=== PATIENT | female | born 1955 | race Caucasian/White ===

== ENCOUNTER → 2018-06-19 10:13 | Outpatient (CLI) | payer BC, SELFPAY ==
--- NOTE | 2018-06-19 10:22 | XR_ITS ---
XR foot LT min 3V HISTORY: Left foot pain ITS.REASON: SINAI FOOT PAIN ORDERING PHYSICIAN: Wan Santoro PATIENT AGE: 62 years COMPARISON: None FINDINGS: There is mild hallux valgus with mild osteoarthritis of the first MDP joint. Hypertrophic changes are present at the first metatarsal distally and medially. There is moderate to severe pes planus. Osteoarthritic changes are present involving the talonavicular joint anteriorly. Small calcaneal spur present and 8 mm. IMPRESSION: Pes planus with hallux valgus with bunion formation and osteoarthritis of the first MTP joint and talonavicular joint
--- NOTE | 2018-06-19 10:22 | XR_ITS ---
XR foot RT min 3V HISTORY: ] Obtained ITS.REASON: SINAI FOOT PAIN ORDERING PHYSICIAN: Wan Santoro PATIENT AGE: 62 years COMPARISON: None FINDINGS: There is mild hallux valgus with mild osteoarthritis of the first MTP joint with hypertrophic change of the distal aspect of the first metatarsal. There is mild pes planus. Flexion deformity involves the fourth and fifth toes. No fracture or dislocation. No lytic or blastic change. There is a calcaneal spur at 9 mm. IMPRESSION: Hallux valgus with osteoarthritis of the first MTP joint and mild bunion formation with pes planus and flexion deformity of the fourth and fifth toes
== END ==
PROVIDERS: PCP Internal Medicine; Referring Provider Podiatrist; Visit Provider Internal Medicine
DX: M79.672 Pain in left foot (principal); M79.671 Pain in right foot
CPT/HCPCS: 73630

== ENCOUNTER → 2020-08-13 09:19 | Outpatient (CLI) | payer MEDICARE, SELFPAY ==
[2020-08-14 08:08] LABS: Covid-19 Nasal PCR Sendout P&C Negative
== END ==
PROVIDERS: PCP Internal Medicine; Visit Provider Internal Medicine
DX: Z20.822 Contact with and (suspected) exposure to COVID-19 (principal)
CPT/HCPCS: U0004

== ENCOUNTER → 2020-12-29 14:37 | Outpatient (CLI) | payer MEDICARE, SELFPAY ==
--- NOTE | 2020-12-29 14:44 | XR_ITS ---
PROCEDURE: XR CHEST 2V CLINICAL HISTORY: COUGH,HTN COMPARISON: CR CXR1 CHEST-PORTABLE from 04/13/2013 CT CTAC CTA-CHEST from 04/13/2013 FINDINGS: Current exam shows a large mass in the left mid lung measuring 5.5 centimeters x 4 centimeters, concerning for pulmonary neoplasm. CT chest with IV contrast recommended for further assessment. Some underlying COPD changes. No pleural effusion or pneumothorax. Heart is not enlarged. No acute bony abnormality. IMPRESSION: Large mass left mid lung concerning for pulmonary neoplasm. CT chest with IV contrast recommended for further assessment. Some underlying COPD changes with mild bibasilar scar versus atelectasis. Dictated by: Kaleb Brand 12/29/2020 14:59 Kaleb Brand in [facility] 12/29/2020 14:59
--- NOTE | 2020-12-29 16:11 | CT_ITS ---
PROCEDURE INFORMATION: Exam: CT Chest With Contrast; Diagnostic Exam date and time: 12/29/2020 4:11 PM Age: 65 years old Clinical indication: Abnormal findings; Abnormal radiologic exam of lung or chest; Patient HX: Large mass seen on chest x-ray today; Additional info: Lung mass TECHNIQUE: Imaging protocol: Diagnostic computed tomography of the chest with contrast. Radiation optimization: All CT scans at this facility use at least one of these dose optimization techniques: automated exposure control; mA and/or kV adjustment per patient size (includes targeted exams where dose is matched to clinical indication); or iterative reconstruction. Contrast material: ISOVUE; Contrast volume: 75 ml; Contrast route: IV; COMPARISON: CR XR CHEST 2V 12/29/2020 2:47 PM FINDINGS: Lungs: Heterogeneous, macrolobulated mass within the periphery of the left upper lobe, measuring 5.1 cm in AP diameter by 4.0 cm in transverse dimension by 4.9 cm in cephalocaudal dimension. Pleural spaces: Unremarkable. No pneumothorax. No pleural effusion. Heart: Calcification of the aortic valve annulus. Mild three-vessel coronary artery atherosclerotic disease. Aorta: Normal. Lymph nodes: Mildly enlarged lymph nodes within the left AP window and subcarinal regions, the largest measuring approximately 2 cm in short axis diameter in the subcarinal region (series 3, image 36), likely metastatic. Gallbladder and bile ducts: Gallbladder surgically absent. Bones/joints: Multilevel thoracic spine degenerative disc space narrowing and osteophyte formation. Soft tissues: Normal. IMPRESSION: 1. Heterogeneous, macrolobulated mass within the periphery of the left upper lobe, measuring 5.1 cm in AP diameter by 4.0 cm in transverse dimension by 4.9 cm in cephalocaudal dimension. Findings most compatible with primary lung carcinoma. Recommend further evaluation with PET-CT and tissue sampling. 2. Mildly enlarged lymph nodes within the left AP window and subcarinal regions, the largest measuring approximately 2 cm in short axis diameter in the subcarinal region (series 3, image 36), likely metastatic.
[2020-12-29 16:33] LABS: Blood Urea Nitrogen 13 mg/dl (7-17); Estimated Glomerular Filt Rate 100 ml/min (>60); GFR (African American) 121 ML/MIN (>60)
== END ==
PROVIDERS: PCP Internal Medicine; Visit Provider Internal Medicine
DX: R91.8 Other nonspecific abnormal finding of lung field (principal); R05 Cough; I10 Essential (primary) hypertension
CPT/HCPCS: 36415; 71046; 71260; 82565; 84520; Q9967

== ENCOUNTER → 2021-01-06 16:49 | Outpatient (CLI) | payer MEDICARE, SELFPAY ==
[2021-01-06 17:06] LABS: Basophils # 0.1 K/mm3 (0-0.2); Basophils % 0.5 % (0.1-2.0); Eosinophils # 0.3 K/mm3 (0.0-0.4); Eosinophils % 3.2 % (0.1-12.0); Hematocrit 38.2 % (37.0-47.0); Hemoglobin 13.6 g/dL (12.2-16.2); Lymphocytes % 19.8 % (10-50); Mean Corpuscular HGB Conc 35.6 g/dL (31.8-35.4); Mean Corpuscular Hemoglobin 30.4 pg (27.0-31.2); Mean Corpuscular Volume 85.4 fl (81-99); Mean Platelet Volume 7.3 fl (7.4-10.4); Monocytes # 0.5 K/mm3 (0.1-1.0); Monocytes % 4.9 % (1.7-9.3); Neutrophils # 7.1 K/mm3 (1.8-7.8); Neutrophils % 71.6 % (37.0-80.0); Platelet Count 291 K/mm3 (142-424); Red Blood Count 4.47 M/mm3 (4.20-5.40); Red Cell Distribution Width 13.2 % (11.5-17.5); White Blood Count 9.9 K/mm3 (4.8-10.8)
[2021-01-06 17:38] LABS: Prothrombin Time 12.3 seconds (10.1-12.5)
[2021-01-06 18:12] LABS: INR 1.05 (0.9-1.1)
[2021-01-06 19:06] LABS: Chloride 103 mmol/L (98-107); Potassium 3.5 mmoL/L (3.5-5.1); Sodium 141 mmol/L (136-145)
[2021-01-06 19:09] LABS: Anion Gap 16.5 mEq/L (5-15); Blood Urea Nitrogen 15 mg/dl (7-17); Calcium 9.8 mg/dl (8.4-10.2); Carbon Dioxide 25 mmol/L (22.0-30.0); Estimated Glomerular Filt Rate 100 ml/min (>60); GFR (African American) 121 ML/MIN (>60); Glucose 97 mg/dl (74-100)
== END ==
PROVIDERS: Visit Provider Internal Medicine Pulmonary Disease
DX: R91.8 Other nonspecific abnormal finding of lung field (principal); R23.3 Spontaneous ecchymoses; J45.909 Unspecified asthma, uncomplicated; Z51.81 Encounter for therapeutic drug level monitoring
CPT/HCPCS: 80048; 85025; 85610

== ENCOUNTER → 2021-01-10 09:18 | Outpatient (CLI) | payer MEDICARE, SELFPAY | PROVIDERS: Visit Provider Internal Medicine Pulmonary Disease | DX: Z01.812 Encounter for preprocedural laboratory examination (principal); Z20.822 Contact with and (suspected) exposure to COVID-19 | CPT/HCPCS: U0003 ==

== ENCOUNTER 2021-01-12 07:29 | Day surgery (SDC) | payer MEDICARE, SELFPAY ==
[2021-01-08 13:47] VITALS: BMI 32.5
[2021-01-12] VITALS (14 sets, daily range): BP systolic 120–172; BP diastolic 55–83; PULSE 88–106; RESP 14–20; TEMP 36.3–36.9; O2SAT 92–98
--- NOTE | 2021-01-12 10:24 | HMH.ANESCL ---
[facility] Anesthesia Checklist - Patient Identification Patient Identification: Arm Band - Structural Data Admitted From: Home Planned Operative Procedure/s: Left bronch, FNA, EBUS Verified Documents: Surgical Consent, History and Physical - NPO Status Verified Time NPO: 00:00 - Additional verifications Anesthesia Reactions: No Hx Blood Transfusions: No Blood Transfusion Reaction: No - Airway Assessment C-Spine Mobility Assessed: Yes TMJ Mobility Assessed: Yes Dentition: Poor Dentition - Neurological Assessment Level of Consciousness: Awake - Anesthesia Plan Anesthesia Risk discussed: Yes Anesthesia Plan: Verified ASA Class: III Anesthesia Type: General [facility] History Medical History: Reports:: Cancer (uterine and ovarian cancer), Heart Murmur, Hyperlipidemia, Hypertension Denies:: Diabetes Mellitus Type 1, Diabetes Mellitus Type 2, Internal Pacemaker, Lung Disease, MRSA, Seizures *Have you ever received a pneumonia vaccine?: No *Have you received a flu vaccine this season?: No Other Medical History: Reports: Arthritis. Denies: Blood Transfusion Reaction Anesthesia experience/problems:: None Other Surgeries: Yes: Cholecystectomy, Colonoscopy, EGD, Hysterectomy-Total, Other. No: Pacemaker Amputation: No Fractures: Yes (rt ankle) - *Social History Last grade of school completed: High school graduate Smoking Status: Never smoker Alcohol Intake: never Alcohol Intake Frequency:: other Substance Use Type: denies use *Occupational Status:: retired Housing: house Household Members: none *Travel in the last 8 weeks: None Family Hx:: Cancer, Stroke
--- NOTE | 2021-01-12 11:08 | XR_ITS ---
PROCEDURE: XR CHEST PORTABLE CLINICAL HISTORY: s/p bronchoscopy Cough COMPARISON: CR CXR1 CHEST-PORTABLE from 04/13/2013 CR XR CHEST 2V from 12/29/[address] CHEST W CON from 12/29/2020 FINDINGS: The cardiomediastinal silhouette and pulmonary vascularity are within normal limits. Left upper lobe mass once again noted not significantly changed at 6 x 4.4 cm. No evidence of pneumothorax status post bronchoscopy. The right lung is clear. No acute bony abnormalities. IMPRESSION: No change left upper lobe mass. No evidence of pneumothorax. Dictated by: Fili Garza MD 01/12/2021 11:53 Fili Garza MD in [facility] 01/12/2021 11:53
--- NOTE | 2021-01-12 11:16 | PC.NURSE ---
1116-radiology at bedside
--- NOTE | 2021-01-12 11:28 | P.PN_ITS ---
[facility] Anesthesia Record Part I Intake, IV Amount: 1,600 Estimated blood loss (mL): 2 Urine output (mL): 0 Blood Pressure: 151/80 SaO2: 97 Pulse Rate: 106 Respiratory Rate: 14 Temperature: 97.4 F Patient is:: Awake, Stable Stable to PACU at:: 11:15
--- NOTE | 2021-01-12 11:41 | PC.NURSE ---
1135-pt transported to post op via stretcher w/marshall rails up and left in care of SONI [place], vss
--- NOTE | 2021-01-12 12:47 | HMH.ANESII ---
[facility] Anesthesia Record Part II Discharge Time: 11:35 Destination: Surgical Day Care (OP Surgery) PACU nurse assessment reviewed?: Yes Patient Condition:: Good Anesthesia Complications:: None Swallowing reflex intact?: Yes Cyanosis?: No Blood Pressure: 145/73 Pulse Rate: 100 Temperature: 97.4 F Mental Status: Alert & Oriented Pain level:: 0 Nausea and/or vomitting:: None Intake, IV Amount: 0
--- NOTE | 2021-01-12 13:50 | SUR.PHASEII ---
WHEEZING HAS IMPROVED SINCE DUONEB, PT BREATHING EASIER AND COUGHING HAS LESSONED DRASTICALLY. PT SMILING AND LAUGHING WITH SISTER, COPING WELL WITH DIAGNOSIS AT THIS TIME, ASKING APPROPRIATE QUESTIONS.
--- NOTE | 2021-01-12 14:43 | P.PCN_ITS ---
- Procedure: Date: 01/12/21 Patient Date of :: 1955 Procedure Performed:: Bronchoscopy with EBUS FNA and transbronchial lung biopsy Indications:: Lung mass and lymphadenopathy Performing Provider:: Kim Lomeli MD Referring Provider:: Dr: Wan Santoro Sedation:: General anesthesia Procedure:: A clean EBUS bronchoscopy was advanced the ET tube and lymph node surveillance was performed. Patient noted to have lymphadenopathy at station 7 and station 10 L. Patient also noted to have a tender lymph node that is marginally enlarged at 1 cm in size. FNAs were performed at station 7 and 10 L and 10 R. Pathology preliminary examination resulted positive for malignancy at station 7 and 10 L. 10 R resulted negative for malignancy. EBUS bronchoscopy was retracted and a clean diagnostic bronchoscopy was advanced and airways were examined up to subsegmental bronchi. Patient noted to have a decreased bronchial lumen in her right middle lobe, left lingula and left lower lobe superior segment. No obvious evidence hemoptysis or mucous plugging noted. Transbronchial lung biopsies were performed in the left lingula and was sent for cytopathological examination in formalin. No BAL was performed. Patient tolerated the procedure well. Findings:: Please see the procedure note Recommendations:: Please follow-up with the primary care physician for the results. Pulmonary services will not be available for the next 3 weeks and patient was advised to follow with the primary care the results. Primary care appointment was also also confirmed today. We have also referred the patient to follow with oncology for further management. PET scan was ordered during her recent clinic visit however not scheduled yet we will touch base with [facility] to schedule the PET scan. Complications:: None Estimated blood obtained (mL): 5
== END 2021-01-12 13:55 | disposition home or self-care (01) ==
LOC: OR 07:30
PROVIDERS: PCP Internal Medicine; Visit Provider Internal Medicine Pulmonary Disease
PROC: (CPT 31628; principal; 2021-01-12 09:00)
DX: C77.9 Secondary and unspecified malignant neoplasm of lymph node, unspecified (principal); R59.0 Localized enlarged lymph nodes; I10 Essential (primary) hypertension; Z79.899 Other long term (current) drug therapy
CPT/HCPCS: 31628; 31653; 71045; 76000; 88172; 88173; 88305; 88333; 88342; 94640; J2405

== ENCOUNTER → 2021-05-29 14:08 | Outpatient (CLI) | payer MEDICARE, SELFPAY ==
[2021-05-29 15:20] LABS: Basophils % 0.3 % (0.1-2.0); Eosinophils # 0.1 K/mm3 (0.0-0.4); Hematocrit 40.9 % (37.0-47.0); Hemoglobin 13.5 g/dL (12.2-16.2); Lymphocytes # 1.3 K/mm3 (0.7-4.5); Lymphocytes % 19.7 % (10-50); Mean Corpuscular HGB Conc 32.9 g/dL (31.8-35.4); Mean Corpuscular Hemoglobin 30.5 pg (27.0-31.2); Mean Corpuscular Volume 92.8 fl (81-99); Monocytes # 0.3 K/mm3 (0.1-1.0); Monocytes % 4.3 % (1.7-9.3); Neutrophils % 74.7 % (37.0-80.0); Platelet Count 215 K/mm3 (142-424); Red Blood Count 4.41 M/mm3 (4.20-5.40); Red Cell Distribution Width 13.7 % (11.5-17.5); White Blood Count 6.7 K/mm3 (4.8-10.8)
[2021-05-29 17:31] LABS: Alanine Aminotransferase 8 U/L (12-78); Albumin Level 4.3 g/dl (3.5-5.0); Albumin/Globulin Ratio 1.7 (1.1-1.8); Alkaline Phosphatase 49 U/L (38-126); Anion Gap 11.8 mEq/L (5-15); Aspartate Amino Transferase 26 U/L (14-36); Bilirubin,Total 0.6 mg/dl (0.2-1.3); Blood Urea Nitrogen 17 mg/dl (7-17); Calcium 9.6 mg/dl (8.4-10.2); Carbon Dioxide 28 mmol/L (22.0-30.0); Chloride 103 mmol/L (98-107); Chol/HDL Ratio 2.5 (1-3.5); Cholesterol 195 mg/dl (140-200); Estimated Glomerular Filt Rate 100 ml/min (>60); GFR (African American) 121 ML/MIN (>60); Globulin 2.6 g/dL (1.3-3.2); Glucose 71 mg/dl (74-100); HDL Cholesterol 77 mg/dl (40-60); Potassium 3.8 mmoL/L (3.5-5.1); Sodium 139 mmol/L (136-145); Total Protein,Serum 6.9 g/dl (6.3-8.2); Triglycerides 155 mg/dl (30-150); VLDL Cholesterol 31 mg/dL (0-40)
[2021-05-29 17:45] LABS: Direct LDL Cholesterol 87.51 mg/dL (100-129)
[2021-05-29 17:54] LABS: T4 (Thyroxine) 8.2 ug/dl (5.53-11.0)
[2021-05-29 18:07] LABS: Thyroid Stimulating Hormone 2.71 uIU/mL (0.465-4.68)
== END ==
PROVIDERS: Visit Provider Internal Medicine
DX: I10 Essential (primary) hypertension (principal); E78.5 Hyperlipidemia, unspecified; E02 Subclinical iodine-deficiency hypothyroidism; C34.92 Malignant neoplasm of unspecified part of left bronchus or lung; Z85.42 Personal history of malignant neoplasm of other parts of uterus
CPT/HCPCS: 80053; 80061; 84436; 84443; 85025

== ENCOUNTER 2021-12-02 12:13 | Emergency (ER) | payer MEDICARE, SELFPAY ==
[2021-12-02 12:35] VITALS: BP 109/72; PULSE 76; RESP 16; TEMP 36.8; O2SAT 98; BMI 31.6
--- NOTE | 2021-12-02 12:52 | HMH.EDUTC ---
[facility] [place] Clinical Impression: Laceration Disposition: Home, Self-Care Condition on Discharge: Good Instructions: Laceration Repair, DI for Laceration Repair -- Simple Additional Instructions: Suture instructions: You have required stitches today. Please read the following instructions so you know how to care for them: 1. Keep wound area dry for the first 24 hours. 2 May clean gently with mild soap and water, after 48 hours to prevent crusting over suture knots. 3. You may shower if your provider gives permission but do not take a bath until the skin is healed.. 4. Never leave a wet dressing or Band-Aid on your stitches as this allows bacteria to reach the area and may cause infection. Band-aids can cause the wound to sweat and not recommended to wear for long periods of time Watch for signs of infection: Increasing redness, tenderness or warmth around the suture site Unusual swelling around the site Appearance of pus around each suture or any red streaks Fever If you develop any of the above signs or symptoms of infection, Follow up with Family Physician immediately 5. Suture removal in _7-10___days 6. Return to [facility] or follow up with family doctor for removal. This can be done by any medical provider during regular hours on Tuesday through Tuesday, by appointment. Referrals: Wan Santoro MD [Primary Care Provider] - As needed Forms: Work/School Release Time of Disposition: 14:25 Medical Decision Making - Francis Inquiry Pt receiving controlled substance: No Francis was queried for this patient: No Vital Signs: 12/02/21 12:35 12/02/21 13:02 Temperature 98.3 F 98.3 F Temperature Source Oral Pulse Rate 76 Pulse Rate [Right Brachial] 76 Respiratory Rate 16 16 Blood Pressure 109/72 L Blood Pressure [Right Arm] 109/72 L Blood Pressure Mean [Right Arm] 84 Blood Pressure Source [Right Arm] Automatic Cuff Blood Pressure Position [Right Arm] Sitting 02 Sat by Pulse Oximetry 98 Oxygen Delivery Method Room Air Orders (Tests/Meds): ED MEDICATIONS Discontinued Medications Generic Name Dose Route Start Last Admin Trade Name Freq PRN Reason Stop Dose Admin Tetanus/Reduced Diphtheria/Acell Pertussis 0.5 ml 12/02/21 12:51 12/02/21 12:55 Tet/Diphth/Pert-Adult 0.5ml Syringe IM 12/02/21 12:52 0.5 ml .ONCE ONE Administration [facility] HPI - General Stated complaint: AO 12/02 finger lac Time Seen by Provider: 12/02/21 12:52 Mode of Arrival: Ambulatory Source of Information: Patient Limitations: No Limitations Description of Symptoms (Recalled from Triage Doc. 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 and her pencil went to roll off the desk and she reached to grab it and hit her hand against the blades and cutting her right middle finger and index finger States that she takes baby aspirin and was having a hard time getting the bleeding to stop so she came in - Related Data Home Medications Medication Instructions Recorded Confirmed amlodipine 5 mg tablet 5 mg PO DAILY 90 Days #90 tab 05/10/18 05/15/21 aspirin 81 mg tablet,delayed 81 mg PO DAILY 05/10/18 05/15/21 release lisinopril 20 2 tab PO DAILY 90 Days #180 tab 05/10/18 05/15/21 mg-hydrochlorothiazide 12.5 mg tablet Ca/D3/Mag/Zinc/Glenn/Dangelo/Mgbor 1 tab PO DAILY 01/08/21 05/15/21 [Caltrate 600-D3-Min Chew Tab] Potassium Chloride 10 meq PO DAILY 01/08/21 05/15/21 Previous Rx's Medication Instructions Recorded albuterol sulfate 90 mcg/actuation 1 inh INHALATION QID PRN #8.5 g 01/12/21 aerosol inhaler benzo
[2021-12-02 13:02] VITALS: BP 109/72; PULSE 76; RESP 16; TEMP 36.8; O2SAT 98
== END 2021-12-02 13:30 | disposition home or self-care (01) ==
PROVIDERS: Emergency Provider Nurse Practitioner; PCP Internal Medicine
DX: S61.210A Laceration without foreign body of right index finger without damage to nail, initial encounter (principal); S61.212A Laceration without foreign body of right middle finger without damage to nail, initial encounter; W26.8XXA Contact with other sharp object(s), not elsewhere classified, initial encounter; Y92.69 Other specified industrial and construction area as the place of occurrence of the external cause; Y99.0 Civilian activity done for income or pay; Z23 Encounter for immunization
CPT/HCPCS: 12001; 90471; 90715; 99213; G0463

== ENCOUNTER → 2022-09-06 17:14 | Outpatient (CLI) | payer MEDICARE, SELFPAY ==
[2022-09-06 17:59] LABS: Basophils # 0.1 K/mm3 (0-0.2); Basophils % 0.6 % (0.1-2.0); Eosinophils # 0.1 K/mm3 (0.0-0.4); Eosinophils % 1.6 % (0.1-12.0); Hematocrit 40.8 % (37.0-47.0); Hemoglobin 13.2 g/dL (12.2-16.2); Lymphocytes # 1.6 K/mm3 (0.7-4.5); Lymphocytes % 20.2 % (10-50); Mean Corpuscular HGB Conc 32.4 g/dL (31.8-35.4); Mean Corpuscular Hemoglobin 30.1 pg (27.0-31.2); Mean Corpuscular Volume 93.1 fl (81-99); Mean Platelet Volume 9.3 fl (7.4-10.4); Monocytes # 0.4 K/mm3 (0.1-1.0); Monocytes % 5.4 % (1.7-9.3); Neutrophils # 5.5 K/mm3 (1.8-7.8); Neutrophils % 72.2 % (37.0-80.0); Platelet Count 202 K/mm3 (142-424); Red Blood Count 4.38 M/mm3 (4.20-5.40); Red Cell Distribution Width 13.2 % (11.5-17.5); White Blood Count 7.7 K/mm3 (4.8-10.8)
[2022-09-06 18:12] LABS: Alanine Aminotransferase 14 U/L (12-78); Albumin Level 4.6 g/dl (3.5-5.0); Albumin/Globulin Ratio 1.6 (1.1-1.8); Alkaline Phosphatase 61 U/L (38-126); Anion Gap 8.5 mEq/L (5-15); Aspartate Amino Transferase 25 U/L (14-36); Bilirubin,Total 0.8 mg/dl (0.2-1.3); Blood Urea Nitrogen 15 mg/dl (7-17); Calcium 9.9 mg/dl (8.4-10.2); Carbon Dioxide 29 mmol/L (22.0-30.0); Chloride 103 mmol/L (98-107); Chol/HDL Ratio 2.5 (1-3.5); Cholesterol 217 mg/dl (140-200); Estimated Glomerular Filt Rate 72 ml/min (>60); GFR (African American) 87 ML/MIN (>60); Globulin 2.8 g/dL (1.3-3.2); Glucose 76 mg/dl (74-100); HDL Cholesterol 86 mg/dl (40-60); Potassium 3.5 mmoL/L (3.5-5.1); Sodium 137 mmol/L (136-145); Total Protein,Serum 7.4 g/dl (6.3-8.2); Triglycerides 140 mg/dl (30-150); Uric Acid 6.2 mg/dl (2.5-6.2); VLDL Cholesterol 28 mg/dL (0-40)
[2022-09-06 18:22] LABS: Direct LDL Cholesterol 89.83 mg/dL (100-129)
== END ==
PROVIDERS: PCP Internal Medicine; Visit Provider Internal Medicine
DX: I10 Essential (primary) hypertension (principal); E78.5 Hyperlipidemia, unspecified; M10.9 Gout, unspecified; C34.92 Malignant neoplasm of unspecified part of left bronchus or lung; Z85.42 Personal history of malignant neoplasm of other parts of uterus; Z85.43 Personal history of malignant neoplasm of ovary
CPT/HCPCS: 80053; 80061; 84550; 85025

== ENCOUNTER 2023-08-02 10:16 | Day surgery (SDC) | payer MEDICARE, SELFPAY ==
[2023-07-29 13:05] VITALS: BMI 32.5
[2023-08-02] MEDS: LACTATED RINGERS 1000ML 1,000 ML 25 ML IV (10:33)
[2023-08-02 10:39] VITALS: BP 131/68; PULSE 86; RESP 18; TEMP 37.1; O2SAT 94
--- NOTE | 2023-08-02 10:57 | P.PCN_ITS ---
Procedure: Date: 08/02/23 Patient Date of :: 1955 Procedure Performed:: Colonoscopy Indications:: History of colon polyps Note: Most recent colonoscopy in June 2019 was somewhat complicated by fairl y severe spasticity/tortuosity. Prior colonoscopy May 2018 revealed a 9 mm sessile serrated adenoma of the right colon. Performing Provider:: Fortunato Reyes MD Referring Provider:: . Sedation:: Monitored anesthesia care Procedure:: After informed consent was obtained the patient was taken to the endoscopy suite. Sedation ensued after the patient was transferred to the left lateral decubitus position. Pulse, blood pressure, and oxygen saturation were monitored throughout the procedure. Digital rectal exam revealed no significant abnormality. The colonoscope was placed in position. The entire colon was evaluated. The colonoscope was carefully removed and the patient was transferred to recovery in stable condition. Please see findings and specimens below for detail. Findings:: Bowel preparation moderate Scattered diverticulosis (more pronounced in sigmoid colon) Severe tortuosity of sigmoid colon Profound sigmoid spasticity Specimens:: None Recommendations:: Repeat colonoscopy 3-5 years secondary to history of polyps, tortuosity, and spasticity. Complications:: No immediate Estimated blood obtained (mL): 0 Colonoscopy Component Colonoscopy Component Was a colonoscopy performed during today's procedure?: Yes Recommended follow up colonoscopy of at least 10 years?: No If no, follow up colonoscopy recommended in ___ years?: (See above) Reason for not recommending >/= 10 yr follow-up interval?: (See above)
--- NOTE | 2023-08-02 11:04 | EXP.ANES.CKL ---
[facility] Disclaimer: The information contained in this section may have been updated after the patient was seen, as this information can be updated by other users. Medical History Heart murmur Lung cancer Surgical History (Updated 08/02/23 @ 10:36 by Glynn Haddad RN) History of cholecystectomy History of hysterectomy History of lung biopsy Family History Other Family history of cancer Family history of hypertension Social History Smoking Status: Never smoker second hand exposure: Yes alcohol intake: never substance use type: denies use current occupational status: retired Travel in the last 8 weeks: None household members: none housing: house current occupational exposures/hazards: No caffeine: No [facility] Anesthesia Checklist Patient Identification Patient Identification: Arm Band Structural Data Admitted From: Home Planned Operative Procedure/s: Colonoscopy Consent for Planned Operative Procedure(s) Verified: Yes Verified Documents: Surgical Consent and History and Physical NPO Status Verified Time NPO: 00:00 Additional verifications Anesthesia Reactions: No Hx Blood Transfusions: No Blood Transfusion Reaction: No Airway Assessment Mallampati Score:: Class II C-Spine Mobility Assessed: Yes TMJ Mobility Assessed: Yes Dentition: Good Dentition Neurological Assessment Level of Consciousness: Awake and Alert Anesthesia Plan Anesthesia Risk discussed: Yes Anesthesia Plan: Verified ASA Class: III Anesthesia Type: MAC
[2023-08-02 11:10] VITALS: O2SAT 94
[2023-08-02 11:42] VITALS: BP 106/47; PULSE 98; RESP 15; TEMP 36.1; O2SAT 98
[2023-08-02 11:52] VITALS: BP 102/66; PULSE 98; RESP 18; O2SAT 98
[2023-08-02 12:02] VITALS: BP 90/63; PULSE 98; RESP 16; O2SAT 98
[2023-08-02 12:12] VITALS: BP 111/68; PULSE 97; RESP 16; TEMP 36.6; O2SAT 98
== END 2023-08-02 12:12 | disposition home or self-care (01) ==
PROVIDERS: PCP Internal Medicine; Visit Provider Surgery
PROC: 0DJD8ZZ Inspection of Lower Intestinal Tract, Via Natural or Artificial Opening Endoscopic (ICD-10-PCS; CPT 45378; principal; 2023-08-02 11:30)
DX: Z12.11 Encounter for screening for malignant neoplasm of colon (principal); Z86.010 Personal history of colon polyps; K57.30 Diverticulosis of large intestine without perforation or abscess without bleeding; K56.2 Volvulus
CPT/HCPCS: 45378; J2704

== ENCOUNTER 2023-11-29 14:37 | Outpatient (CLI) | payer MEDICARE, SELFPAY ==
--- NOTE | 2023-11-29 14:49 | XR_ITS ---
FINAL REPORT CLINICAL HISTORY: LT HIP PAIN, HX OF NON SMALL CELL LUNG CANCER COMPARISON: None FINDINGS: Two images of the left hip were obtained. There is no evidence of fracture or dislocation. There is severe degenerative change of the hip joints bilaterally. There are also severe degenerative changes of the lower lumbar spine present. No acute bony abnormality is noted at the left hip. There are sclerotic areas noted in the left lateral sacrum and the left iliac wing, that may represent bony sclerosis or underlying masses. There is no soft tissue abnormality identified. 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 Sclerotic areas noted in the left lateral sacrum and the left iliac wing that may represent bony sclerosis or underlying masses. Correlation with bone scan or MRI might be helpful for further evaluation. Reviewed, Interpreted and Dictated by Jay Jules III, MD Transcribed by Ashlie So Authenticated and . [facility]
== END 2023-11-29 23:59 | disposition home or self-care (01) ==
LOC: RAD 14:39
PROVIDERS: PCP Internal Medicine; Visit Provider Internal Medicine
DX: M25.552 Pain in left hip (principal); Z85.118 Personal history of other malignant neoplasm of bronchus and lung
CPT/HCPCS: 73502

== ENCOUNTER 2024-10-03 12:58 | Outpatient (CLI) | payer MEDICARE, SELFPAY ==
--- NOTE | 2024-10-03 13:01 | CA_ITS ---
APPROVED REPORT EXAM: Comprehensive 2D, Doppler, and color-flow Echocardiogram Corrosion Control Engineer: Elena Damon RDCS Ht: 5 ft 5 in Wt: 196lbs BSA: 1.96 BP: 150/72 mmHg Indications: MURMUR,PRE-OP EVAL HIP SUGERY,H/O LUNG CA 2D Dimensions Left Atrium 3.55 cm F: 2.7 - 3.8 LA Volume 81.30 mL LVOT 2.09 cm (M/F) 1.5-2.5 LA Volume Index 41.48 mL/m2 (M/F) 16-34 M-Mode Dimensions RVDd 1.90 cm (0.9-2.6) LVDd 5.80 cm (3.5-5.7) Ao Diam 3.09 cm (2.0-3.7) LVDs 4.22 cm (3.5-5.7) IVSd 0.54 cm (0.6-1.1) PWd 0.72 cm (0.6-1.1) EF (Teich) 52.30% FS 27.20% EDV (Teich) 166.60 mL ESV (Teich) 79.50 mL LV Diastology E Decel Time 197 (160-240 msec) E/A Ratio 0.8 MED E' 6.8 (>= 7 cm/sec) E'/MED E' Ratio 13.76 (<= 14) LAT E' 7.3 (>= 10 cm/sec) E/LAT E' Ratio 12.82 (<= 14) Aortic Valve LVOT Max 111.0 (70-110 cm/s) ADELAIDA Index 0.55 cm2/m2 LVOT VTI 24.78 cm AoV Peak Mohsen. 429.0 (50-130 cm/s) AO Mean GR. 36.20 (<5 mmHg) AO VTI 79.3 (18-25 cm) ADELAIDA (VTI) 1.07 (2.5-4.5 cm2) Mitral Valve MV E Max Mohsen. 94.0 (40-130 cm/s) MV A Velocity 120.0 (40-130 cm/s) E/A Ratio 0.78 MV Decel. Time 197 (160-240 ms) Left Ventricle The left ventricle is normal size. The left ventricular systolic function is normal. The left ventricular ejection fraction is within the normal range. There is increased LV wall thickness. There is normal LV segmental wall motion. Transmitral Doppler flow pattern suggests impaired LV relaxation. LVEF is 55%. Right Ventricle The right ventricle is normal size. The right ventricular systolic function is normal. Atria Left atrium is moderately dilated. Right atrium is moderately dilated. There is no Doppler evidence of interatrial shunt. Aortic Valve Aortic valve is moderately thickened. Trace aortic regurgitation. Severe aortic stenosis is present. ADELAIDA by continuity equation is 0.8 cm???. Peak velocity 4.3 m/s. Mean AV gradient 37 mmHg. Max AV gradient 77 mmHg. Mitral Valve The mitral valve leaflets are mildly thickened. Mild mitral regurgitation. No evidence of mitral valve stenosis. Tricuspid Valve Tricuspid valve is grossly normal in structure and function. Trace tricuspid rotation. There is insufficient TR jet to estimate RVSP. Mild pulmonic regurgitation. Pulmonic Valve The pulmonary valve is normal in structure. Great Vessels The aortic root is normal in size. IVC is normal in size and collapses >50% with inspiration. Pericardium There is no pericardial effusion. Other Information Study Quality: Fair Conclusion Normal biventricular systolic function. Biatrial dilation. Severe (ADELAIDA by continuity equation is 0.8 cm???. Peak velocity 4.3 m/s. Mean AV gradient 37 mmHg. Max AV gradient 77 mmHg). Mild MR. In the setting of severe , early referral for interventional cardiology is suggested for TAVR evaluation. Electronically signed by : Alanna Palacios MD 10/04/2024 12:01:33
== END 2024-10-03 23:59 | disposition home or self-care (01) ==
LOC: RT 12:59
PROVIDERS: PCP Internal Medicine; Visit Provider Internal Medicine
DX: I51.7 Cardiomegaly (principal); I35.0 Nonrheumatic aortic (valve) stenosis; I34.0 Nonrheumatic mitral (valve) insufficiency; R01.1 Cardiac murmur, unspecified
CPT/HCPCS: 93306

== ENCOUNTER 2025-02-01 11:12 | Outpatient (CLI) | payer MEDICARE, SELFPAY ==
--- OUTSIDE RECORDS SUMMARY | 2024-12-11 11:30 | XMS_ITS | Encounter Summary ---
Author Organization [facility] Address [address] [place] [address] Care Team Providers Care Inspector Plating Name Role Phone Wan Santoro MD Primary Care Provider [phone] Dalton Hurley MD Unavailable [phone] Geovanny Dominguez MD Unavailable [phone] Rudolph Dillard MD Unavailable [phone] Abdiel Vargas APRN Unavailable [phone] Rodney Maria MD Unavailable [phone] Brian Flores MD Unavailable [phone] Reason for Visit * Reason Comments Labs Only Encounter Details Date Type Department Care Team (Latest Contact Info) Description 12/11/2024 11:30 AM EDT Clinical Support [facility] [address] [place] [address] 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); Encounter for antineoplastic chemotherapy; Adenocarcinoma of left lung (CMS/HCC) Social History Tobacco Use Types Packs/Day Years Used Date Smoking Tobacco: Never Smokeless Tobacco: Never Alcohol Use Standard Drinks/Week Comments Never 0 (1 standard drink = 0.6 oz pur e alcohol) PHQ-2 Answer Date Recorded Patient Health Questionnaire-2 Score 0 10/29/2024 PHQ-9 Answer Date Recorded Patient Health Questionnaire-9 Score 0 10/29/2024 Comments No Sex and Gender Information Value Date Recorded Sex Assigned at Not on file Legal Sex Female 7:30 PM EDT Gender Identity Not on file Sexual Orientation Not on file documented as of this encounter Functional Status * Calculated C-SSRS Risk Score (Lifetime/Recent) Answer Date of Assessment Author No Risk Indicated 12/11/2024 11:36 AM EDT Frederic Ramosenix R * Question Answer Date of Assessment Author 1. Wish to be (Past 1 Month) No 025 11:36 AM EDT Frederic Kleinenix R 2. Non-Specific Active Suici rahel Thoughts (Past 1 Month) No 12/11/2024 11:36 AM EDT Martha Klein oenix R 6. Suicidal Behavior (Lifetime) No 11:36 AM EDT Fabien Kleinx R documented as of this encounter Plan of Treatment Upcoming Encounters Date Type Department Care Team ([facility] st Contact Info) Description 02/11/2025 1:05 PM EDT Hospital Encounter [facility] Operating Room [address] [place] [phone] Abdelrahman Betancur MD [address] [place] [address] 02/11/2025 1:05 PM EDT Anesthesia Event [facility] Operating Room [address] [place] [phone] Evelyn Julian W, [employer] [address] [place] [address] 02/11/2025 1:05 PM EDT - 02/11/2025 3:30 PM EDT Surgery [facility] Operating Room [address] [place] [address] Abdelrahman Betancur MD [address] [place] [address] ARTHROPLASTY, HIP, TOTAL, ANTERIOR APPROACH [50966 (CPT )] 02/26/2025 11:20 AM EDT Office Visit Medical [facility] Building [facility] [address], [address] [place] [phone] Renetta Stoner PA [address] [place] [address] 03/06/2025 10:00 AM EDT Appointment Medical Office Building Cardiac Diagnostic Testing Medical Office Building Echo Lab [address] [facility], [address] [place] [phone] 03/06/2025 11:30 AM EDT Office Visit [facility] [place] [address] [facility], [address] [place] [address] Dian Yancey PA [address] [place] [address] 03/26/2025 11:10 AM EDT Office Visit Medical Office Building [facility] [address] [facility], [address] [place] [address] Abdelrahman Betancur MD [address] [facility] [address] [place] [address] 04/02/2025 9:40 AM EDT Appointment [facility] [address] [place] [phone] 04/02/2025 10:30 AM EDT Appointment [facility] [address] [place] [phone] 04/02/2025 1:15 PM EDT Clinical Support [facility] [address] [facility], [address] [place] [phone] 04/02/2025 1:40 PM EDT Office Visit [facility] [address] [facility] [place] [phone] Rudolph Dillard MD [address] [address] 04/08/2025 7:30 AM EDT Hospital Encounter [facility] Operating Room [address] [place] [address] Abdelrahman Betancur MD [address] [facility] [address] [place] [address] 04/08/2025 7:30 AM EDT - 04/08/2025 10:15 AM EDT Surgery [facility] Operating Room [address] [place] [address] Abdelrahman Betancur MD [address] [place] [address] ARTHROPLASTY, HIP, TOTAL, ANTERIOR APPROACH [21150 (CPT )] 04/23/2025 11:00 AM EDT Office Visit Medical Office Building [facility] [address] [facility], [address] [place] [address] Renetta Stoner PA [address] [facility] [address] [place] [address] 05/21/2025 11:10 AM EST Office Visit Medical Office Building [facility] [address] [facility], [address] [place] [address] Abdelrahman Betancur MD [address] [facility] [address] [place] [address] 01/08/2026 2:00 PM EDT Appointment Medical Office Building Cardiac Diagnostic Testing Medical Office Building Echo Lab [address] [facility], [address] [place] [address] 01/08/2026 3:00 PM EDT Office Visit [facility] [place] [address] [facility], [address] [place] [address] Dian Yancey PA [address] [place] [address] Scheduled Procedures Name Priority Associated Diagnoses Date/Ti me ARTHROPLASTY, HIP, TOTAL, ANTERIOR APPROACH Arthritis of left hip 02/11/2025 1:05 PM EDT ARTHROPLASTY, HIP, TOTAL, ANTERIOR APPROACH Arthritis of right hip 04/08/2025 7:30 AM EDT documented as of this encounter Procedures Procedure Name Priority Date/Time Associated Diagnosis Comments CBC WITH AUTO DIFFERENTIAL Routine 12/11/2024 11:41 AM EDT 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) Encounter for antineoplastic chemotherapy Adenocarcinoma of left lung (CMS/HCC) COMPREHENSIVE METABOLIC PANEL, PLASMA Routine 12/11/2024 11:41 AM EDT 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) Encounter for antineoplastic chemotherapy Adenocarcinoma of left lung (CMS/HCC) documented in this encounter Results * (ABNORMAL) Comprehensive Metabolic Panel, Plasma (12/11/2024 11:41 AM EDT) Glucose, Plasma 83 74 - 99 mg/dL 12/11/2024 12:52 PM EDT [facility] BUN, Plasma 21 8 - 23 mg/dL 12/11/2024 12:52 PM EDT [facility] Creatinine, Plasma 0.84 0.60 - 1.10 mg/dL 12/11/2024 12:52 PM EDT [facility] BUN/Creatinine Ratio 25 12/11/2024 12:52 PM EDT [facility] Sodium, Plasma 140 136 - 145 mmol/L 12/11/2024 12:52 PM EDT [facility] Potassium, Plasma 3.5(L) 3.6 - 4.9 mmol/L 12/11/2024 12:52 PM EDT [facility] Chloride, Plasma 106 97 - 107 mmol/L 12/11/2024 12:52 PM EDT [facility] CO2, Plasma 21(L) 22 - 29 mmol/L 12/11/2024 12:52 PM EDT [facility] Anion Gap 13 6 - 16 mmol/L 12/11/2024 12:52 PM EDT [facility] Total Calcium, Plasma 9.4 8.9 - 10.2 mg/dL 12/11/2024 12:52 PM EDT [facility] Total Protein 6.5 6.3 - 7.9 g/dL 12/11/2024 12:52 PM EDT [facility] Albumin, Plasma 4.0 3.5 - 5.2 g/dL 12/11/2024 12:52 PM EDT [facility] AST, Plasma 20 10 - 35 U/L 12/11/2024 12:52 PM EDT [facility] Comment:Hemolyzed, result ma y be falsely increased. ALT, Plasma 13 10 - 35 U/L 12/11/2024 12:52 PM EDT [facility] Alkaline Phosphatase, Plasma 70 46 - 142 U/L 12/11/2024 12:52 PM EDT [facility] Total Bilirubin, Plasma 0.7 0.2 - 1.1 mg/dL 12/11/2024 12:52 PM EDT [facility] eGFRcr 74.9 mL/min/1.7 3m*2 12/11/2024 12:52 PM EDT [facility] Comment:Reported eGFRcr in m L/min/1.73m2 is based the CKD-EPI 2020 equation that does not use a race coefficient. Blood Venous blood specimen / Unknown Venipuncture / Unknown 12/11/2024 11:41 AM EDT 12/11/2024 12:11 PM EDT us Rudolph Dillard MD LAB BLOOD ORDERABLES Final Res ult [facility] [address] [place] [address] * (ABNORMAL) CBC and Differential (12/11/2024 11:41 AM EDT) WBC Count 7.47 3.70 - 10.30 10*3/uL LAB HEMATOLOGY METHOD 12/11/2024 12:34 PM EDT [facility] RBC Count 3.74(L) 3.90 - 5.20 10*6/uL LAB HEMATOLOGY METHOD 12/11/2024 12:34 PM EDT [facility] HGB 11.4 11.2 - 15.7 g/dL LAB HEMATOLOGY METHOD 12/11/2024 12:34 PM EDT [facility] HCT 34.1 34.0 - 45.0 % LAB HEMATOLOGY METHOD 12/11/2024 12:34 PM EDT [facility] Platelet Count 157 155 - 369 10*3/uL LAB HEMATOLOGY METHOD 12/11/2024 12:34 PM EDT [facility] MCV 91 79 - 98 fL LAB HEMATOLOGY METHOD 12/11/2024 12:34 PM EDT [facility] MCH 30.5 26.0 - 32.0 pg LAB HEMATOLOGY METHOD 12/11/2024 12:34 PM EDT [facility] MCHC 33.4 30.7 - 35.5 g/dL LAB HEMATOLOGY METHOD 12/11/2024 12:34 PM EDT [facility] RDW 13.6 11.5 - 14.5 % LAB HEMATOLOGY METHOD 12/11/2024 12:34 PM EDT [facility] MPV 10.7 8.8 - 12.5 fL LAB HEMATOLOGY METHOD 12/11/2024 12:34 PM EDT [facility] nRBC 0.0 <=0.0 per 100 WBCs LAB HEMATOLOGY METHOD 12/11/2024 12:34 PM EDT [facility] Differential Type Automated LAB HEMATOLOGY METHOD 12/11/2024 12:34 PM EDT [facility] Neutrophils % 77 % LAB HEMATOLOGY METHOD 12/11/2024 12:34 PM EDT [facility] Lymphocytes % 15 % LAB HEMATOLOGY METHOD 12/11/2024 12:34 PM EDT [facility] Monocytes % 6 % LAB HEMATOLOGY METHOD 12/11/2024 12:34 PM EDT [facility] Eosinophils % 2 % LAB HEMATOLOGY METHOD 12/11/2024 12:34 PM EDT [facility] Basophils % 0 % LAB HEMATOLOGY METHOD 12/11/2024 12:34 PM EDT [facility] Immature Granulocytes % 0 % LAB HEMATOLOGY METHOD 12/11/2024 12:34 PM EDT [facility] Neutrophils Absolute 5.71 1.60 - 6.10 10*3/uL LAB HEMATOLOGY METHOD 12/11/2024 12:34 PM EDT [facility] Lymphocytes Absolute 1.10(L) 1.20 - 3.90 10*3/uL LAB HEMATOLOGY METHOD 12/11/2024 12:34 PM EDT [facility] Monocytes Absolute 0.47 0.30 - 0.90 10*3/uL LAB HEMATOLOGY METHOD 12/11/2024 12:34 PM EDT [facility] Eosinophils Absolute 0.14 0.00 - 0.50 10*3/uL LAB HEMATOLOGY METHOD 12/11/2024 12:34 PM EDT [facility] Basophils Absolute 0.02 0.00 - 0.10 10*3/uL LAB HEMATOLOGY METHOD 12/11/2024 12:34 PM EDT [facility] Immature Granulocytes Absolute 0.03 0.00 - 0.06 10*3/uL LAB HEMATOLOGY METHOD 12/11/2024 12:34 PM EDT [facility] Blood Venous blood specimen / Unknown Venipuncture / Unknown 12/11/2024 11:41 AM EDT 12/11/2024 12:26 PM EDT Narrative [facility] - 12/11/2024 12:34 PM EDT Therapeutic decision making should be based on absolute values, rather than percentages. us Rudolph Dillard MD LAB BLOOD ORDERABLES Final Res ult [facility] [address] [place] [address] documented in this encounter Visit Diagnoses Diagnosis 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) Encounter for antineoplastic chemotherapy Adenocarcinoma of left lung (CMS/HCC) Arthritis of left hip Arthritis of right hip documented in this encounter Additional Health Concerns Assessment Noted Time PHQ-9 Depression Total Score: 0 10/30/19 25 12:42 PM EDT A fall risk assessment has been complete d for the patient 12/11/2024 3:00 PM EDT A Body Mass Index follow-up plan has been documented for the patient 11/19/2024 11:40 AM EDT documented as of this encounter Care Teams Inspector Plating Relationship Specialty Start Date End Date Wan Santoro MD [address] [facility] [address] [place] [address] PCP - General 01/20/21 Dalton Hurley MD [address] [facility] [id number] [place] [address] Consulting Physician Radiation Therapy 03/27/21 Geovanny Dominguez MD [address] [facility] [address] [place] [address] Surgeon Neurosurgery 05/21/21 Rudolph Dillard MD [address] [address] Consulting Physician Medical Oncology 09/22/21 Abdiel Vargas, [employer] [address] [facility] [address] [place] [address] Nurse Practitioner Internal Medicine 04/09/22 Rodney Maria MD [address] [address] Referring Physician 11/14/24 Brian Flores MD [address] [place] [address] Consulting Physician Cardiology 11/14/24 documented as of this encounter
--- OUTSIDE RECORDS SUMMARY | 2024-12-11 12:21 | XMS_ITS | Encounter Summary ---
Author Organization [facility] Address [address] 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) Adenocarcinoma of left lung (CMS/HCC) Procedures MR Head w and wo IV Contrast Abdiel Vargas APRN [address] [facility] [address] [place] [address] Phone: tel: fax: Referral ID Status Reason Start Date Expiration Date Visits Re quested Visits Authorized [id number] Closed 09/04/2024 03/06/2026 1 1 Reason for Visit * Imaging (Routine) - Closed Specialty Diagnoses / Procedures Referred By Contac t Referred To Contact Radiology Diagnoses 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) Adenocarcinoma of left lung (CMS/HCC) Procedures MR Head w and wo IV Contrast Abdiel Vargas, PATCHER [address] [facility] [address] [place] [address] Phone: tel: fax: Referral ID Status Reason Start Date Expiration Date Visits Re quested Visits Authorized [id number] Closed 09/04/2024 03/06/2026 1 1 Encounter Details Date Type Department Care Team (Latest Contact Info) Description 12/11/2024 12:21 PM EDT - 12/11/2024 1:55 PM EDT Hospital Encounter [facility] [address] [place] [id number] 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 Wish to be (Past 1 Month) No 025 11:36 AM EDT Fabien Kleinx R 2. Non-Specific Active Suici rahel Thoughts (Past 1 Month) No 12/11/2024 11:36 AM EDT Martha Kleinnideb R 6. Suicidal Behavior (Lifetime) No 11:36 AM EDT Fabien Kleinx R documented as of this encounter Medications at Time of Discharge amLODIPine (Norvasc) 5 MG tablet Take 1 tablet by mouth daily. aspirin 81 MG EC tablet Take 1 tablet by mouth daily. lisinopril-hydroC HLOROthiazide 20-12.5 MG tablet Take 2 tablets by mouth daily. meloxicam (Mobic) 15 MG tablet Take 1 tablet by mouth daily. potassium chloride CR (Klor-Con) 10 MEQ ER tablet Take 1 tablet by mouth daily. Do not crush, chew, or split. Osimertinib Mesylate 80 MG tabletIndications :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) Take 1 tablet by mouth 1 (one) time each day. 30 tablet 5 07/24/2024 01/28/2025 Calcium 600-200 MG-UNIT tablet Take 1 tablet by mouth in the morning. 12/27/2024 documented as of this encounter Miscellaneous Notes * Gisella Singh - 12/11/2024 2:03 PM EDT Images from the original note were not included. 8229 Caring for Yourself after Contrast Imaging If you had ORAL contrast: ?? You can go back to your normal diet and activities as tolerated. ?? Drink plenty of fluids, unless told otherwise. If you had IV contrast: ?? You can go back to your normal diet and activities as tolerated. ?? Drink plenty of fluids, unless told otherwise. ?? Leave a bandage on the site for 30 minutes (where the IV was inserted or blood was drawn). If you had Intravesical (bladder) contrast: ?? Return to normal diet and activity. What you need to know about delayed reaction to IV contrast What is IV Contrast? ?? Contrast is a dye that is put into your body through an IV. ?? It is used for imaging scans such as CT scans and MRIs. ?? The contrast makes blood vessels, organs and other parts of your body show up better on the scan. What do I need to do after IV contrast? ?? Drink lots of fluids. This will help flush the contrast out of your system. ?? Drink 2-3 extra glasses or bottles of water within 4 hours of your scan. What is a contrast reaction? ?? A contrast reaction is a bad side effect from the contrast dye. ?? It is rare but it does happen. ?? They can be mild - such as sneezing, itching, or hives. ?? They can be severe - such as trouble breathing, throat swelling, and irregular heart beat. When do these reactions happen? ?? They often happen right after the contrast is injected. ?? Some happen hours after going home. Go to the nearest Emergency Department right away if you have any of these symptoms after you leavethe clinic or hospital. ?? Sneezing ?? Itching in your mouth, throat, eyes, ears, or skin ?? Rash or hives ?? Throwing up or stomach sickness ?? High heart rate or ?racing? of your heart ?? Feeling dizzy or woozy ?? Feeling short of breath or like you can?t take a deep breath ?? Feeling very anxious for no other reason It is very important that these reactions be treated. Tell the doctor or nurse that you are having a reaction to IV contrast dye. Do not ignore any sign of a reaction! All reactions must be assessed by a doctor. Call 911 if you are alone and your reaction is more than mild sneezing or itching. If you have a mild reaction, call to speak with a Radiologist, explain that you havehad a contrast reaction, as this needs to be added to your medical record. documented in this encounter Plan of Treatment Upcoming Encounters Date Type Department Care Team (Late st Contact Info) Description 02/11/2025 1:05 PM EDT Hospital Encounter [facility] S Operating Room [address] [place] [address] Abdelrahman Betancur MD [address] [facility] [address] [place] [address] 02/11/2025 1:05 PM EDT Anesthesia Event [facility] S Operating Room [address] [place] [address] Evelyn Julian, PATCHER [address] [facility] [address] [place] [address] 02/11/2025 1:05 PM EDT - 02/11/2025 3:30 PM EDT Surgery [facility] Operating [address] [place] [phone] Abdelrahman Betancur MD [address] [facility] [address] [place] [phone] ARTHROPLASTY, HIP, TOTAL, ANTERIOR APPROACH [01998 (CPT )] 02/26/2025 11:20 AM EDT Office Visit Medical [facility] Building [facility] [address] [facility] [place] [phone] Renetta Stoner PA [address] [facility] [address] [place] [address] 03/06/2025 10:00 AM EDT Appointment Medical Office Building Cardiac Diagnostic Testing Medical Office Building Echo Lab [address] [facility] [place] [address] 03/06/2025 11:30 AM EDT Office Visit [facility] [place] [address] [facility] [place] [address] Dian Yancey PA [address] [place] [phone] 03/26/2025 11:10 AM EDT Office Visit Medical Office Building [facility] [address] [facility] [place] [address] Abdelrahman Betancur MD [address] [facility] [address] [place] [address] 04/02/2025 9:40 AM EDT Appointment [facility] [address] [place] [phone] 04/02/2025 10:30 AM EDT Appointment [facility] [address] [place] [phone] 04/02/2025 1:15 PM EDT Clinical Support [facility] [address] [facility] [place] [address] 04/02/2025 1:40 PM EDT Office Visit [facility] [address] [facility]nd [place] [address] Rudolph Dillard MD [address] [facility] [address] [place] [address] 04/08/2025 7:30 AM EDT Hospital Encounter [facility] S Operating Room [address] [place] [phone] Abdelrahman Betancur MD [address] [place] [address] 04/08/2025 7:30 AM EDT - 04/08/2025 10:15 AM EDT Surgery [facility] S Operating Room [address] [place] [address] Abdelrahman Betancur MD [address] [place] [address] ARTHROPLASTY, HIP, TOTAL, ANTERIOR APPROACH [14903 (CPT )] 04/23/2025 11:00 AM EDT Office Visit Medical Office Building [facility] [address] [place] [address] Renetta Stoner PA [address] [place] [address] 05/21/2025 11:10 AM EST Office Visit Medical Office Building [facility] [address] [place] [address] Abdelrahman Betancur MD [address] [place] [address] 01/08/2026 2:00 PM EDT Appointment Medical Office Building Cardiac Diagnostic Testing Medical Office Building Echo Lab [address] [facility] [place] [address] 01/08/2026 3:00 PM EDT Office Visit [facility] [place] [address] [facility] [place] [phone] Dian Yancey, FLY [address] [place] [address] Scheduled Procedures Name Priority Associated Diagnoses Date/Ti me ARTHROPLASTY, HIP, TOTAL, ANTERIOR APPROACH Arthritis of left hip 02/11/2025 1:05 PM EDT ARTHROPLASTY, HIP, TOTAL, ANTERIOR APPROACH Arthritis of right hip 04/08/2025 7:30 AM EDT documented as of this encounter Procedures Procedure Name Priority Date/Time Associated Diagnosis Comments MR HEAD W AND WO IV CONTRAST Routine 12/11/2024 2:01 PM EDT 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 No evidence of residual or recurrent intracranial metastatic disease. The results were faxed/finalized only (2:14 PM ET). If you would like to discuss this case directly please call to review. Randa Mahmood M.D. This report has been electronically signed and verified by the Radiologist whose name is printed above. This report contains privileged and confidential information and is intended solely for the use of the individual or entity to which it is addressed. If you are not the intended recipient of this report, you are hereby notified that any copying, distribution, dissemination or action taken in relation to the contents of this report is strictly prohibited and may be unlawful. If you have received this report in error, please notify the sender immediately at [phone] and permanently delete the original report and destroy any copies or printouts. Narrative 12/12/2024 2:15 PM EDT [facility] - Phone Outpatient NAME: Priya Lynn DATE OF EXAM: 12/11/2024 Patient No: [id number] Physician: Kuldeep Date of : 1955 Past Medical/Surgical History (entered by technologist): Symptoms/Reason For Exam (entered by technologist): Metastatic disease evaluation; Brain metastases, assess treatment response Tech Notes (entered by technologist): gadobutrol (Gadavist) injection 8 mL given IV; Dx: Malignant neoplasm metastatic to brain; Adenocarcinoma of left lung. 12/11/24 (note in progress): 68 yo with advanced adeno EGFR mutated NSCLC on osimertinib since 02/17/21 with single met to brain on s/p Gamma Knife 03/02/21. A PET/CT showing no active lesions other than the primary so she had s/p SBRT to the WILLIAM mass 04/23/22 after which continuing osimertinib. She is here today to review CT and MRI. ROS: Normal energy, no light headedness on standing.. Additional History (per [facility]): Contrast Agent and Dose: 8 mL Gadavist IV Comparison: MRI brain 09/04/2024 Technique: Multiplanar, Multisequence MRI through the brain was performed without and with intravenous contrast. MRI BRAIN WITHOUT AND WITH GADOLINIUM FINDINGS: Diagnostic quality: Adequate No evidence to support recurrent intracranial metastatic disease. No enhancing mass lesions or nodules. No mass or mass effect. No abnormal extra-axial enhancement. No acute infarct. No acute intracranial hemorrhage or collection. Major intracranial vascular flow voids: Preserved on T2 weighted sequences. Ventricles and sulci: Normal for age. No midline shift or herniation. Sinuses: Well aerated. Soft tissues and osseous structures: No acute findings. Procedure Note Randa Mahmood MD - 12/12/2024 [facility] - [facility] Outpatient NAME: Priya Lynn DATE OF EXAM: 12/11/2024 Patient No: [id number] Physician: Kuldeep Date of : 1955 Past Medical/Surgical History (entered by technologist): Symptoms/Reason For Exam (entered by technologist): Metastatic diseaseevaluation; Brain metastases, assess treatment response Tech Notes (entered by technologist): gadobutrol (Gadavist) injection 8 mLgiven IV; Dx: Malignant neoplasm metastatic to brain; Adenocarcinoma ofleft lung. 12/11/24 (note in progress): 68 yo with advanced adeno EGFRmutated NSCLC on osimertinib since 02/17/21 with single met to brain on s/pGamma Knife 03/02/21. A PET/CT showing no active lesions other than theprimary so she had s/p SBRT to the WILLIAM mass 04/23/22 after which continuingosimertinib. She is here today to review CT and MRI. ROS: Normal energy, no light headedness on standing.. Additional History (per [facility]): Contrast Agent and Dose: 8 mL Gadavist IV Comparison: MRI brain 09/04/2024 Technique: Multiplanar, Multisequence MRI through the brain was performedwithout and with intravenous contrast. MRI BRAIN WITHOUT AND WITH GADOLINIUM FINDINGS: Diagnostic quality: Adequate No evidence to support recurrent intracranial metastatic disease. Noenhancing mass lesions or nodules. No mass or mass effect. No abnormalextra-axial enhancement. No acute infarct. No acute intracranial hemorrhage or collection. Major intracranial vascular flow voids: Preserved on T2 weightedsequences. Ventricles and sulci: Normal for age. No midline shift or herniation. Sinuses: Well aerated. Soft tissues and osseous structures: No acute findings. IMPRESSION: 1. No evidence of residual or recurrent intracranial metastaticdisease. The results were faxed/finalized only (2:14 PM ET). If you would like todiscuss this case directly please call to review. Randa Mahmood M.D. This report has been electronically signed and verified by the Radiologistwhose name is printed above. This report contains privileged and confidential information and isintended solely for the use of the individual or entity to which it isaddressed. If you are not the intended recipient of this report, you arehereby notified that any copying, distribution, dissemination or actiontaken in relation to the contents of this report is strictly prohibitedand may be unlawful. If you have received this report in error, pleasenotify the sender immediately at [phone] and permanently delete theoriginal report and destroy any copies or printouts. 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) Adenocarcinoma of left lung (CMS/HCC) Arthritis of left hip Arthritis of right hip documented in this encounter Administered Medications Inactive Administered Medications - up to 3 most recent administrations Medication Order MAR Action Action Date Dose Rate Site gadobutrol (Gadavist) injection 8 mL 8 mL (rounded from 8.02 mL = 0.1 mL/kg 80.2 kg), Intravenous, Once in imaging, 1 dose, Starting on 12/11/24 at 1320, Until Tu12/11/24 at 1333, Routine, Imaging Protocol Orders Given 12/11/2024 1:33 PM EDT 8 mL documented in this encounter Additional Health Concerns Assessment Noted Time PHQ-9 Depression Total Score: 0 10/30/19 25 12:42 PM EDT A fall risk assessment has been complete d for the patient 12/11/2024 3:00 PM EDT A Body Mass Index follow-up plan has been documented for the patient 11/19/2024 11:40 AM EDT documented as of this encounter Care Teams Paid Search Marketing Analyst Relationship Specialty Start Date End Date Wan Santoro MD [address] [facility] [address] [place] [address] PCP - General 01/20/21 Dalton Hurley MD [address] [facility] [address] [place] [address] Consulting Physician Radiation Therapy 03/27/21 Geovanny Dominguez MD [address] [facility] [address] [place] [address] Surgeon Neurosurgery 05/21/21 Rudolph Dillard MD [address] [place] [address] Consulting Physician Medical Oncology 09/22/21 Abdiel Vargas APRN [address] [facility] [address] [place] [address] Nurse Practitioner Internal Medicine 04/09/22 Rodney Maria MD [address] [place] [address] Referring Physician 11/14/24 Brian Flores MD [address] [place] [address] Consulting Physician Cardiology 11/14/24 documented as of this encounter
--- OUTSIDE RECORDS SUMMARY | 2024-12-11 13:56 | XMS_ITS | Encounter Summary ---
Author Organization [facility] Address [address] [place] [address] Care Team Providers Care Spring Bender Name Role Phone Wan Santoro MD Primary Care Provider [phone] Dalton Hurley MD Unavailable [phone] Geovanny Dominguez MD Unavailable [phone] Rudolph Dillard MD Unavailable [phone] Abdiel Vargas APRN Unavailable [phone] Rodney Maria MD Unavailable [phone] Brian Flores MD Unavailable [phone] Reason for Referral * Imaging (Routine) - Closed Specialty Diagnoses / Procedures Referred By Contac t Referred To Contact Radiology Diagnoses 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) Adenocarcinoma of left lung (CMS/HCC) Procedures CT Chest w IV Contrast Abdiel Vargas APRN [address] [facility] [address] [place] [address] Phone: tel: fax: Referral ID Status Reason Start Date Expiration Date Visits Re quested Visits Authorized [id number] Closed 09/04/2024 03/06/2026 1 1 Reason for Visit * Imaging (Routine) - Closed Specialty Diagnoses / Procedures Referred By Contac t Referred To Contact Radiology Diagnoses 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) Adenocarcinoma of left lung (CMS/HCC) Procedures CT Chest w IV Contrast Abdiel Vargas, [employer] ARCHITECT [address] [place] [address] Phone: tel: fax: Referral ID Status Reason Start Date Expiration Date Visits Re quested Visits Authorized [id number] Closed 09/04/2024 03/06/2026 1 1 Encounter Details Date Type Department Care Team (Latest Contact Info) Description 12/11/2024 1:56 PM EDT - 12/11/2024 11:59 PM EDT Hospital Encounter [facility] Radiology [address] [place] [address] 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); Adenocarcinoma [...] Indicated 12/11/2024 11:36 AM EDT Amor Ramos * Question Answer Date of Assessment Author [...] as of this encounter Miscellaneous Notes * Denise MoisesOlivier Dowlingerich R - 12/11/2024 2:11 PM EDT Images from the original note were not included. 1639 Caring for Yourself after Contrast Imaging If [...] Description 02/11/2025 1:05 PM EDT Hospital Encounter [facility] Operating Room [address] [place] [address] Abdelrahman Betancur MD [address] [facility] [address] [place] [address] 02/11/2025 1:05 PM EDT Anesthesia Event [facility] S Operating Room [address] [place] [address] Evelyn Julian, TERAD[employer] SOLUTION ARCHITECT [address] [facility] [address] [place] [address] 02/11/2025 1:05 PM EDT - 02/11/2025 3:30 PM EDT Surgery [facility] Operating Room [address] [place] [phone] Abdelrahman Betancur MD [address] [facility] [address] [place] [phone] ARTHROPLASTY, HIP, TOTAL, ANTERIOR APPROACH [48502 (CPT )] 02/26/2025 11:20 AM EDT Office Visit Medical Office Building Surgery Spine [facility] [address] [facility] [place] [address] Renetta Stoner PA [address] [facility] [address] [place] [address] 03/06/2025 10:00 AM EDT Appointment Medical Office Building Cardiac Diagnostic Testing Medical Office Building Echo Lab [address] [facility] [place] [address] 03/06/2025 11:30 AM EDT Office Visit [facility] [place] [address] [facility] [place] [address] Dian Yancey PA [address] [place] [address] 03/26/2025 11:10 AM EDT Office Visit Medical Office Building Surgery Sp[facility] [address] [facility] [place] [address] Abdelrahman Betancur MD [address] [facility] [address] [place] [address] 04/02/2025 9:40 AM EDT Appointment [facility] [address] [place] [phone] 04/02/2025 10:30 AM EDT Appointment [facility] [address] [place] [phone] 04/02/2025 1:15 PM EDT Clinical Support [facility] [address] [facility], [address] [place] [address] 04/02/2025 1:40 PM EDT Office Visit [facility] [address] [facility], [address]nd [place] [phone] Rudolph Dillard MD [address] [facility] [address] [place] [address] 04/08/2025 7:30 AM EDT Hospital Encounter [facility] Operating Room [address] [place] [phone] Abdelrahman Betancur MD [address] [place] [address] 04/08/2025 7:30 AM EDT - 04/08/2025 10:15 AM EDT Surgery [facility] Operating Room [address] [place] [phone] Abdelrahman Betancur MD [address] [place] [address] ARTHROPLASTY, HIP, TOTAL, ANTERIOR APPROACH [38659 (CPT )] 04/23/2025 11:00 AM EDT Office Visit Medical Office Building Surgery Sp[facility] [address] [facility], [address] [place] [address] Renetta Stoner PA [address] [place] [address] 05/21/2025 11:10 AM EST Office Visit Medical Office Building [facility] [address] [place] [address] Abdelrahman Betancur MD [address] [place] [address] 01/08/2026 2:00 PM EDT Appointment Medical Office Building Cardiac Diagnostic Testing Medical Office Building Echo Lab [address] [place] [address] 01/08/2026 3:00 PM EDT Office Visit [facility] [place] [address] [facility], [address] [place] [address] Dian Yancey, FLY [address] [place] [address] Scheduled Procedures Name Priority Associated Diagnoses Date/Ti me ARTHROPLASTY, HIP, TOTAL, ANTERIOR APPROACH Arthritis of left hip 02/11/2025 1:05 PM EDT ARTHROPLASTY, HIP, TOTAL, ANTERIOR APPROACH Arthritis of right hip 04/08/2025 7:30 AM EDT documented as of this encounter Procedures Procedure Name Priority Date/Time Associated Diagnosis Comments CT CHEST W IV CONTRAST Routine 12/11/2024 2:40 PM EDT 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) Adenocarcinoma of left lung (CMS/HCC) documented in this encounter Results * CT Chest w IV Contrast (12/11/2024 2:40 PM EDT) Anatomical Region Laterality Modality Chest Computed Tomogra phy Impressions 12/11/2024 3:10 PM EDT No evidence of thoracic disease progression. CRITICAL RESULT: No. COMMUNICATION: Per this written report. By electronically signing this report, I, the attending physician, attest that I have personally reviewed the images/data for the above examination(s) and agree with the final edited report. Drafted by Zach Islas DO on 12/11/2024 2:59 PM Final report signed by Maximiliano Nolan MD on 12/11/2024 3:10 PM Narrative 12/11/2024 3:10 PM EDT CLINICAL INDICATION: Non-small cell lung cancer (NSCLC), metastatic, assess treatment response TECHNIQUE: Multiple CT helical images were obtained from thoracic inlet through upper abdomen with administration of IV contrast. 100 mL of Omnipaque-300 were administered intravenously. Total DLP (Dose-Length Product): 126.18 mGy.cm. Please note: The reported value represents the total of one or more individual components during the CT acquisition on this date and at this time, and as such, the same value may appear in more than one CT report depending on the interpreting/reporting physicians. COMPARISON: CTA chest 11/19/2024, CT chest 09/04/2024 FINDINGS: Mediastinum and Pleura: Stable 10 mm right hilar lymph node on series 2 image 39. No new or enlarging mediastinal or hilar adenopathy. Mild coronary artery calcifications. No pleural or pericardial effusion. Lungs: No significant change in size of treated lesion in the left upper lobe with surrounding post radiation fibrosis. Stable 5 mm groundglass nodule in the posterior right upper lobe on series 3 image 20. No new or enlarging suspicious pulmonary nodules. Upper Abdomen: Cholecystectomy with migrated cholecystectomy clip adjacent to the right kidney, similar to prior. No suspicious findings within the upper abdomen. Musculoskeletal: No suspicious lytic or sclerotic lesion. Multiple vertebral body hemangiomas. Procedure Note Maximiliano Nolan MD - 12/11/2024 CLINICAL INDICATION: Non-small cell lung cancer (NSCLC), metastatic, assess treatmentresponse TECHNIQUE: Multiple CT helical images were obtained from thoracic inlet through upperabdomen with administration of IV contrast. 100 mL of Omnipaque-300 wereadministered intravenously. Total DLP (Dose-Length Product): 126.18 mGy.cm. Please note: The reportedvalue represents the total of one or more individual components during theCT acquisition on this date and at this time, and as such, the same valuemay appear in more than one CT report depending on theinterpreting/reporting physicians. COMPARISON: CTA chest 11/19/2024, CT chest 09/04/2024 FINDINGS: Mediastinum and Pleura: Stable 10 mm right hilar lymph node on series 2image 39. No new or enlarging mediastinal or hilar adenopathy. Mildcoronary artery calcifications. No pleural or pericardial effusion. Lungs: No significant change in size of treated lesion in the left upperlobe with surrounding post radiation fibrosis. Stable 5 mm groundglassnodule in the posterior right upper lobe on series 3 image 20. No new orenlarging suspicious pulmonary nodules. Upper Abdomen: Cholecystectomy with migrated cholecystectomy clip adjacentto the right kidney, similar to prior. No suspicious findings within theupper abdomen. Musculoskeletal: No suspicious lytic or sclerotic lesion. Multiplevertebral body hemangiomas. IMPRESSION: No evidence of thoracic disease progression. CRITICAL RESULT: No. COMMUNICATION: Per this written report. By electronically signing this report, I, the attending physician, guidoat I have personally reviewed the images/data for the aboveexamination(s) and agree with the final edited report. Drafted by Zach Islas DO on 12/11/2024 2:59 PM Final report signed by Maximiliano Nolan MD on 12/11/2024 3:10 PM Abdiel Vargas TERAD[employer] SOLUTION ARCHITECT IMG CT PROCEDURES Final Resul t documented in this encounter Visit Diagnoses Diagnosis 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) Adenocarcinoma of left lung (CMS/HCC) Arthritis of left hip Arthritis of right hip documented in this encounter Administered Medications Inactive Administered Medications - up to 3 most recent administrations Medication Order MAR Action Action Date Dose Rate Site iohexol (OMNIPaque) 300 MG/ML injection 100 mL 100 mL, Intravenous, Once in imaging, 1 dose, Starting on Tu12/11/24 at 1411, Until e 12/11/24 at 1453, Routine, Imaging Protocol Orders Given 12/11/2024 2:53 PM EDT 100 mL Le ft Forearm documented in this encounter Additional Health Concerns Assessment Noted Time PHQ-9 Depression Total Score: 0 10/30/19 25 12:42 PM EDT A fall risk assessment has been complete d for the patient 12/11/2024 3:00 PM EDT A Body Mass Index follow-up plan has been documented for the patient 11/19/2024 11:40 AM EDT documented as of this encounter Care Teams Spring Bender Relationship Specialty Start Date End Date Wan Santoro MD [facility] [address] [place] [address] PCP - General 01/20/21 Dalton Hurley MD [address] [facility] [address] [place] [address] Consulting Physician Radiation Therapy 03/27/21 Geovanny Dominguez MD [address] [facility] [address] [place] [address] Surgeon Neurosurgery 05/21/21 Rudolph Dillard MD [address] [place] [phone] Consulting Physician Medical Oncology 09/22/21 Abdiel Vargas, TERADATA SOLUTION ARCHITECT [address] [facility] [address] [place] [phone] Nurse Practitioner Internal Medicine 04/09/22 Rodney Maria MD [address] [address] Referring Physician 11/14/24 Brian Flores MD [address] [place] [phone] Consulting Physician Cardiology 11/14/24 documented as of this encounter
--- OUTSIDE RECORDS SUMMARY | 2024-12-11 14:40 | XMS_ITS | Encounter Summary ---
Author Organization [facility] Address [address] [place] [address] Care Team Providers Care Mattress Weaver Name Role Phone Wan Santoro MD Primary Care Provider [phone] Dalton Hurley MD Unavailable [phone] Geovanny Dominguez MD Unavailable [phone] Rudolph Dillard MD Unavailable [phone] Abdiel Vargas APRN Unavailable [phone] Rodney Maria MD Unavailable [phone] Brian Flores MD Unavailable [phone] Reason for Visit * Reason Comments Follow-up Encounter Details Date Type Department Care Team (Latest Contact Info) Description 12/11/2024 2:40 PM EDT Office Visit [facility] Res[facility] [address] [place] [address] Rudolph Dillard MD [address] [facility] [address] [place] [phone] 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) (Primary Dx); Adenocarcinoma of left lung (CMS/HCC); Severe aortic stenosis; Arthritis of right hip; Encounter for antineoplastic chemotherapy Social History Tobacco Use Types Packs/Day Years [...] on file documented as of this encounter Last Filed Vital Signs Vital Sign Reading Time Taken Comments Blood Pressure 138/84 12/11/2024 3:01 PM EDT Pulse 83 12/11/2024 3:01 PM EDT Temperature 36.8 C (98.2 F) 12/11/2024 3:01 PM EDT Respiratory Rate 16 12/11/2024 3:01 PM EDT Oxygen Saturation 96% 12/11/2024 3:01 PM EDT Inhaled Oxygen Concentration - - Weight 82.3 kg (181 lb 7 oz) 12/11/2024 3:01 PM EDT Height 160 cm (5' 2.99 ) 12/11/2024 3:01 PM EDT Body Mass Index 32.15 12/11/2024 3:01 PM EDT documented in this encounter Functional Status * Calculated C-SSRS Risk Score (Lifetime/Recent) Answer Date of Assessment Author No Risk Indicated 12/11/2024 11:36 AM EDT Brasheba mitchell, [place] R * Question Answer Date of Assessment Author 1. Wish to be (Past 1 Month) No 025 11:36 AM EDT Latoya, [place] R 2. Non-Specific Active Suici rahel Thoughts (Past 1 Month) No 12/11/2024 11:36 AM EDT Latoya Ph oenix R 6. Suicidal Behavior (Lifetime) No 11:36 AM EDT Latoya, [place] R documented as of this encounter Miscellaneous Notes * Progress Notes - Rudolph Dillard MD - 12/11/2024 2:40 PM EDT Priya Lynn is a 69 y.o. female. Referring Physician: No referring provider defined for this encounter. Primary Care Provider: Wan Santoro MD 69 yo with advanced adeno EGFR mutated NSCLC on osimertinib since 02/17/21 with single met to brain on s/p Gamma Knife 03/02/21. A PET/CT showing no active lesions other than the primary so she had s/p SBRT to the [facility] mass 04/23/22 after which continuing osimertinib. She is here today to review CT and MRI Of note, patient was scheduled for right hip replacement, however when a murmur was heard and she was sent for cardiac testing. Echocardiogram showed severe aortic stenosis. ROS: Some fatigue, some light headedness on standing, occasional palpitations, normal appetite, no weight loss, no nausea/vomiting, no fever, no dyspnea on exertion, no constipation or diarrhea, some irratation skin at fingers, mobility limited by arthiritic pain in hips and knees, all remaining 14 point ROS negative. PMH: Uterine and ovarian CA in 2005. HTN FH: father lung cancer, brother lung cancer NKDA SH: never smoker PE Visit Vitals OB Status Hysterectomy Smoking Status Never Alert and NAD PERRL, EOMI MMM No palpable Lns RRR syctolic murmurs CTA inpiratory shorter than expiratory Soft NT BS+ LE no edema Neuro grossly intact No rash Psych normal affect Results: WBC Count (10*3/uL) Date/Time Value 09/28/2024 1347 7.11 HGB (g/dL) Date/Time Value 09/28/2024 1347 10.9 (L) Platelet Count (10*3/uL) Date/Time Value 09/28/2024 1347 177 Creatinine, Plasma (mg/dL) Date/Time Value 09/28/2024 1347 0.84 AST, Plasma (U/L) Date/Time Value 09/04/2024 1235 24 ALT, Plasma (U/L) Date/Time Value 09/04/[address] shows stable lung mass no recurrence MRI shows no recurrence A/P: 69 yo with advanced adeno EGFR mutated NSCLC on osimertinib since 02/17/21 with single met to brain on s/p Gamma Knife 03/02/21. A PET/CT showing no active lesions other than the primary so she had s/p SBRT to the [facility] mass 04/23/22 after which continuing osimertinib. No evidence of recurrence on today's scans Cancer: continue osimeritinib repeat CT in 4 months Arthritis: Surgery is being postponed until after TAVR procedure Arotic stenosis to get TAVR HTN Brain met treated with xrt no evidence recurrence repeat MRI in 4 month Obesity. Can consider GLP1 agonist in future. Had discussed on prior visits. PS 1 RTC in 4 months Spent more than 40 minutes reviewing data, imaging h/p planning discussing documenting * Progress Notes - Kaleb Alberto, PharmD - 12/11/2024 2:40 PM EDT Pharmacy Hematology/Oncology Treatment Follow-Up Note Priya Lynn is a 69 y.o. female with Cancer Staging Adenocarcinoma of left lung (CMS/HCC) Staging form: Lung, AJCC 8th Edition - Pathologic stage from 01/12/2021: Stage KATHIA (cT3, pN2, pM1b) - Unsigned NSCLC (adenocarcinoma, EGFR ex19 del) Treatment Plan reviewed for osimertinib regimen. Interval History: Patient continues to tolerate treatment well. Repeat imaging stable per Dr. Dillard. Will continue as planned. 09/04/24: Overall, Ms. Lynn is doing well and tolerating treatment. Labs reviewed and appropriate for continuation of osimertinib. CT chest completed today is stable with no evidence of disease progression. MRI head still pending final read. 12/11/24: Patient found to have tolerated therapy. Patient presenting for labs and imaging (CT chest, MRI head) on osimertinib. Labs reviewed and appropriate for treatment. Patient will continue current therapy with osimertinib. Today's Weight: Wt Readings from Last 2 Encounters: 12/11/24 82.3 kg (181 lb 7 oz) 11/19/24 80.2 kg (176 lb 11.2 oz) Recent Labs: Lab Results Component Value Date WBC 7.47 12/11/2024 HGB 11.4 12/11/2024 HCT 34.1 12/11/2024 MCV 91 12/11/2024 PLT 157 12/11/2024 Lab Results Component Value Date GLUCOSE 83 12/11/2024 CALCIUM 9.4 12/11/2024 NA 140 12/11/2024 K 3.5 (L) 12/11/2024 CO2 21 (L) 12/11/2024 CL 106 12/11/2024 BUN 21 12/11/2024 CREATININE 0.84 12/11/2024 Lab Results Component Value Date ALT 13 12/11/2024 AST 20 12/11/2024 ALKPHOS 70 12/11/2024 BILITOT 0.7 12/11/2024 Lab Results Component Value Date NEUTROABS 5.71 12/11/2024 Vitals: Visit Vitals BP 138/84 (BP Location: Left arm, Patient Position: Sitting, BP Cuff Size: Adult long) Pulse 83 Temp 36.8 ??C (98.2 ??F) (Oral) Resp 16 Study Patient: no Treatment Plan: Osimertinib 80mg daily [x] No dose adjustments made Current Treatment Plan History: 02/17/21 - present Prior Treatment History: none Assessment/Plan: Current dose: osimertinib 80mg daily Sent to: [facility] Refills due: 01/2025 Patient will return to clinic in 3 months w/scans. Will follow-up at that time. Pharmacist Attestation: Kaleb Alberto PharmD Clinical Pharmacist Cosigned by Hilario Bagley PharmD at 12/19/2024 9:06 AM EDT Associated attestation - Hilario Bagley PharmD - 12/19/2024 9:06 AM EDT I have evaluated the patient along with the resident and agree with the assessment and plan. Hilario Bagley PharmD, [facility] Clinical Oncology Pharmacist documented in this encounter Plan of Treatment Upcoming Encounters Date Type Department Care Team (Late st Contact Info) Description 02/11/2025 1:05 PM EDT Hospital Encounter [facility] Operating Room [address] [place] [address] Abdelrahman Betancur MD [address] [facility] [address] [place] [address] 02/11/2025 1:05 PM EDT Anesthesia Event [facility] Operating Room [address] [place] [address] JulianEvelyn W, JIG BOX OPERATOR [address] [facility] [address] [place] [address] 02/11/2025 1:05 PM EDT - 02/11/2025 3:30 PM EDT Surgery [facility] Operating Room [address] [place] [address] Abdelrahman Betancur MD [address] [facility] [address] [place] [address] ARTHROPLASTY, HIP, TOTAL, ANTERIOR APPROACH [66308 (CPT )] 02/26/2025 11:20 AM EDT Office Visit Medical Office Building Surgery Sp[facility] [address] [facility] [place] [address] Renetta Stoner PA [address] [facility] [address] [place] [address] 03/06/2025 10:00 AM EDT Appointment Medical Office Building Cardiac Diagnostic Testing Medical Office Building Echo Lab [address] [facility] [place] [address] 03/06/2025 11:30 AM EDT Office Visit [facility] [place] [address] [facility] [place] [address] Dian Yancey PA [address] [place] [address] 03/26/2025 11:10 AM EDT Office Visit Medical Office Building Surgery [facility] [address] [facility] [place] [address] Abdelrahman Betancur MD [address] [facility] [address] [place] [address] 04/02/2025 9:40 AM EDT Appointment [facility] Radiology [address] [place] [address] 04/02/2025 10:30 AM EDT Appointment [facility] [address] [place] [address] 04/02/2025 1:15 PM EDT Clinical Support [facility] Res[facility] [address] [facility] [place] [address] 04/02/2025 1:40 PM EDT Office Visit [facility] Head[facility]ck [facility] Res[facility] [address] [facility] [place] [address] Rudolph Dillard MD [address] [address] 04/08/2025 7:30 AM EDT Hospital Encounter [facility] S Operating Room [address] [place] [address] Abdelrahman Betancur MD [address] [place] [address] 04/08/2025 7:30 AM EDT - 04/08/2025 10:15 AM EDT Surgery [facility] S Operating Room [address] [place] [address] Abdelrahman Betancur MD [address] [place] [address] ARTHROPLASTY, HIP, TOTAL, ANTERIOR APPROACH [10265 (CPT )] 04/23/2025 11:00 AM EDT Office Visit Medical Office Building [facility] [address] [place] [address] Renetta Stoner PA [address] [place] [address] 05/21/2025 11:10 AM EST Office Visit Medical Office Building [facility] [address] [place] [address] Abdelrahman Betancur MD [address] [facility] [address] [place] [address] 01/08/2026 2:00 PM EDT Appointment Medical Office Building Cardiac Diagnostic Testing Medical Office Building Echo Lab [address] [facility] [place] [address] 01/08/2026 3:00 PM EDT Office Visit [facility] [place] [address] [facility] [place] [address] Dian Yancey PA [address] [place] [address] Scheduled Procedures Name Priority Associated Diagnoses Date/Ti me ARTHROPLASTY, HIP, TOTAL, ANTERIOR APPROACH Arthritis of left hip 02/11/2025 1:05 PM EDT ARTHROPLASTY, HIP, TOTAL, ANTERIOR APPROACH Arthritis of right hip 04/08/2025 7:30 AM EDT documented as of this encounter Visit Diagnoses Diagnosis 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)- Primary Adenocarcinoma of left lung (CMS/HCC) Severe aortic stenosis Aortic valve disorders Arthritis of right hip Encounter for antineoplastic chemotherapy Arthritis of left hip Arthritis of right [...] documented as of this encounter Care Teams Mattress Weaver Relationship Specialty Start Date End Date Wan Santoro MD [address] [facility] [address] [place] [address] PCP - General 01/20/21 Dalton Hurley MD [address] [facility] [address] [place] [address] Consulting Physician Radiation Therapy 03/27/21 Geovanny Dominguez MD [address] [facility] [address] [place] [address] Surgeon Neurosurgery 05/21/21 Rudolph Dillard MD [address] [address] Consulting Physician Medical Oncology 09/22/21 Abdiel Vargas, JIG BOX OPERATOR [address] [facility] [address] [place] [address] Nurse Practitioner Internal Medicine 04/09/22 Rodney Maria MD [address] [id number] Referring Physician 11/14/24 Brian Flores MD 800 [place] [address] Consulting Physician Cardiology 11/14/24 documented as of this encounter
--- OUTSIDE RECORDS SUMMARY | 2024-12-27 08:00 | XMS_ITS | Encounter Summary ---
Author Organization [facility] Address [address] [place] [address] Care Team Providers Care Printmaker Name Role Phone Wan Santoro MD Primary Care Provider [phone] Dalton Hurley MD Unavailable [phone] Geovanny Dominguez MD Unavailable [phone] Rudolph Dillard MD Unavailable [phone] Abdiel Vargas APRN Unavailable [phone] Rodney Maria MD Unavailable [phone] Brian Flores MD Unavailable [phone] Reason for Referral * Consultation (Routine) - Authorized Specialty Diagnoses / Procedures Referred By Contac t Referred To Contact Cardiac Rehabilitation Diagnoses S/P TAVR (transcatheter aortic valve replacement) Brian Flores MD [address] [place] [address] Phone: tel: fax: Referral ID Status Reason Start Date Expiration Date V isits Requested Visits Authorized [id number] Authorized 12/28/2024 06/29/2026 1 1 Reason for Visit * Auth/Cert (Routine) Specialty Diagnoses / Procedures Referred By Contac t Referred To Contact Diagnoses Nonrheumatic aortic valve stenosis Nonrheumatic aortic valve stenosis [I35.0] Procedures ND REPLACE AORTIC VALVE PERQ FEMORAL ARTRY APPROACH TAVR IMPLANTATION, AORTIC VALVE, TRANSCATHETER Brian Flores MD [address] [place] [address] Phone: tel: fax: Cardiac Diesel Engineer [address] [place] [address] Phone: tel: Referral ID Status Reason Start Date Expiration Date Visits Re quested Visits Authorized [id number] 1 1 Encounter Details Date Type Department Care Team (Latest Contact Info) Description 12/27/2024 8:00 AM EDT - 12/28/2024 1:15 PM EDT Hospital Encounter [facility] Inpatient [address] [place] [address] Brian Flores MD [address] [place] [address] S/P TAVR (transcatheter aortic valve replacement) (Primary Dx); Nonrheumatic aortic valve stenosis Discharge Disposition: Home or Self Care Social [...] Sign Reading Time Taken Comments Blood Pressure 129/73 12/28/2024 11:08 AM EDT Pulse 83 12/28/2024 11:08 AM EDT Temperature 37 C (98.6 F) 12/28/2024 11:08 AM EDT Respiratory Rate 20 12/28/2024 11:0 8 AM EDT Oxygen Saturation 96% 12/28/2024 11: 08 AM EDT Inhaled Oxygen Concentration - - Weight 81.6 kg (179 lb 14.3 oz) 12/27/2024 8:20 AM EDT Height 165.1 cm (5' 5 ) 12/27/2024 8:20 AM EDT Body Mass Index 29.94 12/27/2024 8:20 AM EDT documented in this encounter Functional Status * Calculated C-SSRS Risk Score (Lifetime/Recent) Answer Date of Assessment Author No Risk Indicated 12/28/2024 8:00 AM EDT Martin Ivory RN * Question Answer Date of Assessment Author 1. Wish to be (Past 1 Month) No 025 8:00 AM EDT Shravan Ivory RN 2. Non-Specific Active Suici rahel Thoughts (Past 1 Month) No 12/28/2024 8:00 AM EDT Shravan Ivory RN 6. Suicidal Behavior (Lifetime) No 8:00 AM EDT Shravan Ivory RN documented as of this encounter Discharge Instructions * Discharge Instructions* Kaleb Bond, SURGICAL SERVICES TECH - 12/27/2024 9:21 AM EDT TAVR Discharge Instructions Discharge Instructions/Restrictions: Activity & Incision Instructions: For 1 weeks, do not lift anything heavier than 10 pounds (about the weight of a gallon of milk). Do not drive for 24 hours after procedure. You can shower within the next 24 hours. Do not submerge your incision in water. No tub baths, hot tubs or swimming pools for 7-10 days. If your incision has a dressing over it, you may remove those later today and shower. You do NOT need to place a new dressing over it. It will heal from the inside out. Every day, check the area around your incision site for signs of infection or problems. If bleeding from groin site occurs, hold pressure and contact the [facility] at [phone]. If after hours, call [phone]. For emergencies, call [phone]. Follow up: You will have an echocardiogram and follow-up with the Structural Team in 1 month. If you have not received a follow up appointment at the time of discharge, they will be in contact with you in the next few days via phone or mail reminder. If you do not hear from someone within 3-5 days, call the [facility] at [phone] for more information. Please call Dylon Pope RN, with any other questions. Medication Instructions: Antibiotics are required prior to all dental visits. Take Medication exactly as instructed in your discharge packet Do not take any medications that have not been ordered for you. This means do not take other people's medication, illegal drugs or substances. The following information is obtained directly from the [employer]. https://www.heart.org/en/health-topics/infective-endocarditis What is Infective Endocarditis? Infective endocarditis (IE), also called bacterial endocarditis, is an infection caused by bacteriathat enter the bloodstream and settle in the heart lining, a heart valve or a blood vessel. IE is uncommon, but people with some heart conditions have a greater risk of developing it. Risk factors for developing IE include: - Heart valve disease. - Previous heart valve surgery. - Congenital heart disease. - Intravenous drug use. - Previous history of IE. Dental Procedures and Infective Endocarditis People with the highest risk for poor outcomes from IE may be prescribed antibiotics (IE prophylaxis) prior to certain dental procedures to reduce their risk of developing it. These include procedures that involve manipulation of gingival (gum) tissue or the periapical region (area around the roots) of teeth, or perforation of the oral mucosa. Antibiotic prophylaxis is reasonable before the above-mentioned dental procedures for people with heart valve disease who have any of the following: - Prosthetic cardiac valves, including transcatheter-implanted prostheses and homografts. - Prosthetic material used for heart valve repair, such as annuloplasty rings, chords or clips. - Previous IE. - Unrepaired cyanotic congenital heart defect ( defects with oxygen levels lower than normal) or repaired congenital heart defect, with residual shunts or valvular regurgitation at the site adjacent to the site of a prosthetic patch or prosthetic device. - Cardiac transplant with valve regurgitation due to a structurally abnormal valve. - Except for the conditions listed above, antibiotic prophylaxis before dental procedures is not recommended for any other types of congenital heart disease. In addition, antibiotic prophylaxis is not recommended for patients with valvular heart disease whoare at high risk of IE for nondental procedures (e.g., TIM, esophagogastroduodenoscopy, colonoscopy, or cystoscopy) in the absence of active infection. You can reduce the risk of IE by maintaining good oral health through regular professional dental care and the use of dental products such as manual, powered and ultrasonic toothbrushes; dental floss; and other plaque-removal devices. Please see table below for antibiotic prophylactic regimen options. Single dose regimen 30-60 minutes prior to dental procedure. Situation Agent Dose Oral Amoxicillin 2g Unable to take oral medication (choose one) Ampicillin Cefazolin or ceftriaxone 2g IM or IV 1g IM or IV Allergic to penicillin or ampicillin - Oral regimen (choose one) Cephalexin Azithromycin or clarithromycin Doxycycline 2g 500 mg 100 mg Allergic to penicillin and ampicillin and unable to take oral medication (choose one) Cefazolin or ceftriaxone 1g IM or IV Please note that clindamycin is no longer recommended for antibiotic prophylaxis for a dental procedure. documented in this encounter Medications at Time of Discharge [...] each day. 30 tablet 5 07/24/2024 01/28/2025 documented as of this encounter Miscellaneous Notes * Addendum Note - Latha Arguelles RN - 12/28/2024 1:15 PM EDTEncounter addended by: Latha Arguelles RN on: 01/04/2025 11:07 AM Actions taken: Utilization Review data saved * Progress Notes - Neelima Ingram - 12/28/2024 1:15 PM EDT Inpatient Cardiac Rehab Assessment Patient Name: Priya Lynn Today's Date: 12/28/2024 Subjective: Ms. Lynn qualifies for outpatient cardiac rehab due to recent TAVR. I/R/P: Priya Lynn qualifies for outpatient cardiac rehab. Will send referral to closest facility to her home, [facility]. [place] will contact Ms. Lynn to discuss and schedule. Cardiac Rehabilitation Program Referral 1. Participation in a Phase II cardiac rehabilitation program is recommended. Patient was informed about what cardiac rehabilitation has to offer and why it is beneficial. The plan of care for the rehabilitation program consists of risk factor modification, monitored and supervised exercise and assistance in the recovery process with ongoing education and support. Patient is patient interested incardiac rehab?: may be interested in attending a cardiac rehabilitation program. 2. Eligibility: Heart valve surgery 3. Exceptions/exclusions: [facility] Cardiac Rehab Exclusions: None 4. Referral: [facility] Cardiac Rehab Referral: Patient will consider participating in a cardiac rehabilitation program. Patient was provided with contact information for the following program(s) for consideration: [place], [place] - [phone]. 5. Information sent: Information Sent: Appropriate information will be sent to the receiving cardiac rehabilitation program.: * Denise Duarte - Shravan Ivory RN - 12/28/2024 12:16 PM EDT Images from the original note were not included. [id number] After Heart Valve Surgery For the first 6 to 8 weeks after surgery, you?ll gain a little more energy and strength each day. Your healthcare provider will discuss what you can and can?t do as you recover. Some days will be easier than others. Remember to take things slowly and rest when you get tired. Walking ? Walking pumps blood to your heart. This improves blood flow all over your whole body. ? Start with a short walk (maybe 5 minutes). Walk for a little longer each day. ? Choose a safe place with a level surface. This might be a local park or mall. ? Wear shoes with good support. This will help prevent injury to knees and ankles. ? Walk with someone. It?s more fun and helps you stay with it. Showering ? Don't use very hot water, especially on the cuts (incisions). It can affect your circulation and make you dizzy. ? Ask someone to stand nearby in case you need help. Driving ? Let others drive you around for the first 4 to 6 weeks after your surgery, or as directed by yourhealthcare provider. ? Motion can make pain worse and injure your breastbone. ? Some of your medicines may make you drowsy. Easing into activity ? After a few weeks, you can start doing light work around your home, such as making simple meals and washing dishes. ? Most healthcare providers advise against lifting anything that weighs more than 5 pounds Your provider may give you a different weight limit. Don't do activities that require raising your arms above the height of your shoulders. For instance, don't reach up to get items from higher shelves. ? Don't do mowing or vacuuming. These motions can strain your breastbone. ? Your provider can advise you about the best plan for returning to work. It will depend on the type of work you do, such as a desk job, or a more active job. ? Discuss with your provider when you can resume having sex. This will depend on the type of surgery you had. For instance, if your breastbone was cut, your provider may advise waiting 2 to 4 weeks. Or waiting until you can easily climb 2 flights of stairs or walk a 1/2 mile. Medicines your healthcare provider may prescribe ? Blood-thinner (anticoagulant). This medicine prevents bleeding or blood clots that could lead to a stroke. ? Antibiotic. This helps prevent infection that could scar and destroy your new heart valve. You'llbe told when to take this medicine. That might be before dental work, surgery, or other medical procedures. When to call your healthcare provider Call your healthcare provider right away if you have any of these: ? Fever of 100.4??F (38??C) or higher, or as advised by your provider ? Chills Call 911 Call 911 if any of these occur: ? New or abnormal chest pain or belly (abdominal) pain ? Feeling dizzy or faintness ? New or abnormal shortness of breath ? Cough up red blood or have red blood in your stool ? Irregular, slow, or fast heart rate ? Sudden numbness in arms, legs, or face ? Sudden severe headache Last Reviewed Date: 2023 00:00:00 ?? [id number] The [employer]. All rights reserved. This information is not intended as a substitute for professional medical care. Always follow your healthcare professional's instructions. * Denise Duarte - Shravan Ivory RN - 12/28/2024 12:16 PM EDT Images from the original note were not included. [id number] Understanding Transcatheter Aortic Valve Replacement (TAVR) Transcatheter aortic valve replacement (TAVR) is a procedure to replace a diseased aortic valve with a new tissue or biologic valve. The old heart valve is not removed but works like an anchor for the new heart valve. This procedure is done through small incisions using a long thin tube (catheter),X-rays, and ultrasound. TAVR is also known as transcatheter aortic valve implantation (CECIL). The aortic valve directs blood flow from the heart (left ventricle) into the aorta (large blood vessel) and carries blood to the rest of the body. In some people, the valve becomes scarred and stiff and has trouble opening. This is called aortic stenosis. The heart then has to work harder to push blood through the narrowed heart valve to the rest of the body. Over time, the extra work can cause the heart muscle to get weak. This may lead to symptoms such as tiredness, shortness of breath, chestpain, and fainting. It can also lead to heart failure. In TAVR, the catheter is usually placed in the femoral artery in your groin. Sometimes, the catheter is placed through the axillary artery near your armpit or the carotid artery in your neck. Occasionally, the catheter is placed through a small incision in your chest underneath the collarbone or anincision between the ribs. The health care provider uses the catheter to bring the new valve to your heart. The new valve is made of cow or pig heart tissue and is mounted on a metal frame. The new valve helps improve blood flow from the heart to the rest of the body. Reasons for TAVR TAVR may be a choice for some people instead of surgical aortic valve replacement. This will be based on age, surgical risks, how bad your aortic stenosis is, other medical factors, and other cardiacissues. Your health care team will determine if TAVR is a good choice for you. Risks and possible complications TAVR works very well in most people. But all medical procedures carry some risks and possible complications. Some common risks of TAVR include: ? Bleeding or the need for a blood transfusion. ? Anemia (not enough red blood cells in the blood). ? Blood clots. ? Infection. ? Collection of fluid around your heart (pericardial effusion). ? Confusion or memory problems. ? Damage to the heart. ? Damage to your blood vessels. ? Failure of the new valve. ? Heart attack. ? Heart rhythm problems that may need a pacemaker. ? Kidney damage or failure. ? Lung puncture. ? Stroke. ? Risks of anesthesia (including ). ? In rare cases, the new heart valve moving out of position after it was implanted. ? Leaking of blood in or around the new heart valve. You may have other risks, depending on your medical condition. Be sure to talk with your health care provider if you have any concerns before the procedure. Life after a heart valve replacement ? A new heart valve can help ease symptoms you may have had. These include pain or pressure in yourchest, shortness of breath, and tiredness. ? After the surgery, you will need to take aspirin or other blood-thinning medicine every day. You will likely also need to take an antiplatelet medicine for a certain period of time. These medicineshelp prevent blood clots in your new valve. ? You will need to take antibiotics before you have dental work and certain other medical procedures, as prescribed by your health care provider. This is to help prevent bacteria from harming your new heart valve. ? Your provider may tell you to make some lifestyle changes to protect your heart and make it stronger. These include exercise, quitting smoking, and staying at a healthy weight. ? After your recovery from TAVR, you may be able to return to regular activities. You should noticeimprovement in the symptoms from your heart valve disease. Be sure to talk to your provider before you start any exercise program. Last Reviewed Date: 2024 00:00:00 ?? [id number] The [employer]. All rights reserved. This information is not intended as a substitute for professional medical care. Always follow your healthcare professional's instructions. * Discharge Summary - Kaleb Bond APRN - 12/28/2024 10:03 AM EDT Images from the original note were not included. Hospitalization Admit Date/Time: 12/27/2024 8:00 AM Admitting Attending: Brian Flores Discharge Date: 12/28/24 Discharge Attending Physician: Brian Flores MD PCP name and Address: Wan Santoro MD [address] [place] [address] [address] / [place] [address] Referring provider name and address: No referring provider defined for this encounter. Chief Concern, Brief History of Present Illness, and Hospital Course Priya Lynn is a 69 year old female who presents for an elective transcatheter aortic valve replacement (TAVR) per Dr. Brian Flores. Past medical history significant for aortic valve stenosis, HTN, stage 4 NSCLC. Evaluated by [facility] on 10/29/2024. Reported symptoms activity limitation but partially contributed by hip pain. Uses walker for ambulation. Has been on oral chemotherapy, which causes some fatigue. Denies chest discomfort and dyspnea. Recommended TAVR work-up. Evaluated by [facility] on 11/19/2024. Case then discussed at the multidisciplinary valve conference on 11/22/2024. Plans made for proceed with TAVR. No meds to hold pre-op. Patient meets criteria for TAVR, Transcatheter Aortic Valve Replacement, according to the CMS National Coverage Decision.?Case data will be extracted and entered into the [facility] Clinical Registry/[facility] Research as required by the National Coverage Decision.? NCT Identifier [id number]. 12/27/2024 S/P TAVR with 23 mm Maria D [address] Brian Flores MD ([facility]). 12/28/2024 Subjective: Awake and alert. NAD. VSS. No complaints of chest pain, SOA, N/V, diaphoresis, or palpitations. court monitor showing SR without ectopy. Groin sites without bleeding or hematomas. No new cardiac issues. Post-op ECHO negative for pericardial effusion. Patient is ready for discharge home this morning. Cardiac Diagnostics: Echo - 10/03/2024: LVEF 55%. with MG 37 and PG 77 mmHg, ADELAIDA 0.8 cm2. Mild MR. ECG - 09/28/2024: NSR with PVCs. HR 85 bpm. QRS 86 ms. # Aortic Valve Stenosis - Symptoms: difficult to determine based on co-morbidities and medication side-effects. - Diagnostics as above. - Home medications: ASA 81 mg PO daily. Plan: - 12/28/2024 Discharge home today. - 12/27/2024 S/P TAVR with 23 mm Maria D [address] Brian Flores MD ([facility]). - Routine pre and post-op care. - Pre-op antimicrobial: vancomycin 1,250 mg IV once + Ancef 2 g IV once. - 12/28/24 Post-op Limited ECHO is negative for pericardial effusion. - 12/28/24 Post-op CXR negative for acute findings. - 12/28/24 Post-op ECG showing SR. - 12/28/24 AM labs with decreased magnesium level (Replacement ordered). - Antiplatelet plan: Continue ASA 81 mg daily indefinitely. - Antibiotics prior to any dental procedures for life. - Follow-up with [facility] in 1 month with ECHO. Chronic Conditions: # Hypertension - Home medications: amlodipine, lisinopril-hydrochlorothiazide. - 2g Na diet. # Non-Small Cell Lung Cancer - Follows with Oncology. Last seen 12/11/2024. - Home medication: osimeritinib mesylate 80 mg PO daily. Surgeries and Procedures Procedures performed in this encounter Procedures Structural Heart TAVR (N/A), IMPLANTATION, AORTIC VALVE, TRANSCATHETER (N/A) 12/27/2024 S/P TAVR with 23 mm Maria D [address] Brian Flores MD ([facility]). Interpretation Successful transfemoral transcatheter aortic valve replacement with a 23 mm Maria D S3 Ultra valve 1) Admit to the Inpatient Cardiology NIA Team for at least overnight observation on telemetry. 2) Aspirin 81 mg daily indefinitely. 3) Antibiotics prior to dental procedures for life. 4) Repeat echocardiogram in 4 hours. 5) Complete blood count and basic metabolic panel 2 hours post-procedure (fresh stick) 6) Follow-up in Structural NIA clinic in 4 weeks with echocardiogram and EKG We, Drs. Brian Flores and Gladys Lopez, were present for the entire procedure. Access Time Date Event Details User 10:00 AM 12/27/24 Clif - In Type: Vendor/Rep - Assisting with Providing Product Info 10:00 AM 12/27/24 Aleada - In Type: Other - Providing Care 10:22 AM 12/27/24 Vessel Puncture No Supply Selected - Accessed site: right femoral artery. LW 10:24 AM 12/27/24 Vessel Puncture No Supply Selected - Accessed site: right femoral vein. LW 10:25 AM 12/27/24 Vessel Puncture No Supply Selected - Accessed site: left femoral artery. LW 10:58 AM 12/27/24 Clif - Out Type: Vendor/Rep - Assisting with Providing Product Info 10:58 AM 12/27/24 Aleada - Out Type: Other - Providing Care Procedure Details Procedures Performed: 1. Ultrasound-guided vascular access 2. Temporary pacemaker wire insertion 3. Aortography 4. Transfemoral transcatheter aortic valve replacement with 23 mm Maria D S3 Ultra valve Procedure Indication: The patient is a 69-year-old woman with hypertension, stage IV lung cancer (on chemotherapy for 4 years), and aortic stenosis. She needs a hip replacement and pre-operative echocardiogram showed severe aortic stenosis (ADELAIDA 0.8 cm^2 with peak gradient of 77 mm Hg). Her activity is limited by hip pain. The case was discussed at our Multi-Disciplinary Valve Team Conference. We recommended aortic valve intervention. After considering the risks and benefits, the patient decided to proceed with TAVR. Procedure In Detail: After written, informed consent was obtained, the patient was transported to the cardiac catheterization laboratory in the fasting state. A Time Out was performed to verify the correct patient, procedure, and access sites. The bilateral groins were prepped and draped in the usual sterile fashion.The anesthesia team administered intravenous conscious sedation. Using ultrasound guidance and the modified Seldinger technique, the following vascular access was obtained: 1) Right common femoral vein: 8-Sudanese short Terumo sheath 2) Right common femoral artery: 6-Sudanese short Terumo sheath 3) Left common femoral artery: 7-Sudanese short Terumo sheath The 6-Sudanese right common femoral arterial sheath was upsized to an 8-Sudanese sheath after 2 Preclose sutures were deployed. Heparin was given for a goal ACT>250. Antibiotics were given. The 8-Sudanese right femoral arterial sheath was upsized to the 14-Sudanese Zavala sheath over a Safari wire. A temporary pacemaker wire was advanced from the venous sheath to the right ventricular apex. Thresholds were tested and confirmed to be adequate. A 6-Sudanese angled pigtail catheter was inserted from the left common femoral arterial sheath to theright coronary cusp. An aortogram was performed to confirm the correct coplanar angle. The aortic valve was crossed from the E-sheath using an exchange-length J-tip wire and a 6-FrenchAL1 diagnostic catheter. The AL1 catheter was removed and a 6-Sudanese angled pigtail catheter was advanced over the wire to the left ventricular apex. The pigtail catheter was then removed over an extra-small Safari wire. The 23 mm Maria D S3 Ultra valve was prepped on the delivery system in the usual fashion on the backtable. Correct valve orientation was confirmed by the team members. The system was advanced over the Safari wire until the valve was in the correct position in relation to the annulus. Aortography confirmed the correct position. During rapid ventricular pacing, the valve was deployed. Post-deployment, the patient's blood pressure and heart rate returned to normal. Post-deployment echocardiography showed no pericardial effusion and no significant aortic regurgitation. Post-deployment aortography confirmed that there was no significant aortic regurgitation. Vascular hemostasis was obtained as follows: 1) Right common femoral artery: The 2 Preclose sutures were tightented. 2) Left common femoral artery: A Perclose suture was deployed. 3) Right common femoral vein: Manual pressure Protamine was given. The patient was transported back to the Post-Anesthesia Care Unit (PACU) in good condition. No immediate intraprocedural complications were observed. Hemodynamics Pressures Phases Resting AO mmHg 113/49 (74) Implants Type Not Specified Valve Kit Maria D 3 Ultra Tavr 23mm - [id number] - [id number] - Implanted Inventory item: VALVE KIT MARIA D 3 ULTRA TAVR 23MM Model/Cat number: [id number] Serial number: [id number] Assembler Dielectric Heater: [id number] Lot number: [id number] As of 12/27/2024 Status: Implanted Discharge Diagnosis Nonrheumatic aortic valve stenosis Active Hospital Problems *Nonrheumatic aortic valve stenosis Physical Exam: GENERAL: WD, WNL, VSS, NAD. EYES: No scleral icterus or conjunctivitis HENT: Atraumatic, normocephalic, nares patent, mucus membranes moist NECK: Supple, no JVD, no evidence of bruit bilaterally RESP/CHEST: Symmetric expansion; non labored. CTA bilaterally. CARD: RRR, SR, normal S1 and S2, no murmur, rub, or gallop Extremities: No lower extremity edema. No cyanosis or clubbing. Pedal pulses palpable +2. GI: No organomegaly or masses. Soft, Nontender, nondistended. BS present and normoactive x 4 quadrants SKIN: No rash, sores, lesions or subcutaneous nodules. Bilateral groin sites without bleeding or hematomas, right groin site with bruising noted (see photos). NEURO: AAOx4. Motor intact and no focal deficits. PSYCH: Mood and affect congruent and appropriate to situation. VITALS Visit Vitals BP (!) 148/71 (BP Location: Left arm, Patient Position: Lying) Pulse 80 Temp 36.7 ??C (98.1 ??F) (Oral) Ht 1.651 m (5' 5 ) Wt 81.6 kg (179 lb 14.3 oz) SpO2 97% BMI 29.94 kg/m?? LABS Recent Results (from the past week) Hemogram (CBC) Collection Time: 12/27/24 8:24 AM Result Value Ref Range WBC Count 7.04 3.70 - 10.30 10*3/uL RBC Count 3.90 3.90 - 5.20 10*6/uL HGB 11.8 11.2 - 15.7 g/dL HCT 35.4 34.0 - 45.0 % Platelet Count 170 155 - 369 10*3/uL MCV 91 79 - 98 fL MCH 30.3 26.0 - 32.0 pg MCHC 33.3 30.7 - 35.5 g/dL RDW 13.5 11.5 - 14.5 % MPV 10.9 8.8 - 12.5 fL nRBC 0.0 <=0.0 per 100 WBCs Basic metabolic panel Collection Time: 12/27/24 8:24 AM Result Value Ref Range Glucose, Plasma 94 74 - 99 mg/dL BUN, Plasma 24 (H) 8 - 23 mg/dL Creatinine, Plasma 0.91 0.60 - 1.10 mg/dL BUN/Creatinine Ratio 26 Sodium, Plasma 143 136 - 145 mmol/L Potassium, Plasma 3.5 (L) 3.6 - 4.9 mmol/L Chloride, Plasma 106 97 - 107 mmol/L CO2, Plasma 23 22 - 29 mmol/L Anion Gap 14 6 - 16 mmol/L Total Calcium, Plasma 9.5 8.9 - 10.2 mg/dL eGFRcr 68.0 mL/min/1.73m*2 N-Terminal Probnp Collection Time: 12/27/24 8:24 AM Result Value Ref Range N-Terminal, PROBNP, Plasma 348 0 - 899 pg/mL Type and Screen Collection Time: 12/27/24 8:24 AM Result Value Ref Range ABO/Rh O Positive Antibody Screen Negative Specimen Expiration 12/30/2024 23:59 POCT creatinine Collection Time: 12/27/24 8:29 AM Result Value Ref Range Creatinine, Point of Care 1.0 0.6 - 1.1 mg/dL POCT eGFR 61 mL/min/1.73m*2 Sales Trainer ID Nela Perez Device ID [id number] Comment Echo, Adult Transthoracic (TTE) Limited Collection Time: 12/27/24 11:12 AM Result Value Ref Range BSA 1.93 m2 Ao V2 VTI 43.0 cm Ao mean PG 8 mmHg Ao V2 Vmax 189.0 cm/s Ao max PG 14 mmHg Ao V2 mean 133.5 cm/s ECG Adult Collection Time: 12/27/24 11:49 AM Result Value Ref Range EKG DIAGNOSIS CLASS Abnormal Ventricular Rate 78 BPM Atrial Rate 78 BPM ND Interval 162 ms QRSD Interval 102 ms QT Interval 428 ms QTC Interval 487 ms P Vernon 36 degrees R Vernon 14 degrees T Wave Vernon -39 degrees Diagnosis Normal sinus rhythm Diagnosis Anteroseptal infarct , age undetermined Diagnosis T wave abnormality, consider inferior ischemia Diagnosis Long QTc Diagnosis Abnormal ECG Diagnosis Diagnosis Confirmed by Doe Lion ([id number]) on 12/27/2024 2:49:27 PM CBC Collection Time: 12/27/24 1:09 PM Result Value Ref Range WBC Count 9.03 3.70 - 10.30 10*3/uL RBC Count 3.45 (L) 3.90 - 5.20 10*6/uL HGB 10.4 (L) 11.2 - 15.7 g/dL HCT 31.5 (L) 34.0 - 45.0 % Platelet Count 143 (L) 155 - 369 10*3/uL MCV 91 79 - 98 fL MCH 30.1 26.0 - 32.0 pg MCHC 33.0 30.7 - 35.5 g/dL RDW 13.6 11.5 - 14.5 % MPV 11.1 8.8 - 12.5 fL nRBC 0.0 <=0.0 per 100 WBCs Basic metabolic panel Collection Time: 12/27/24 1:09 PM Result Value Ref Range Glucose, Plasma 92 74 - 99 mg/dL BUN, Plasma 22 8 - 23 mg/dL Creatinine, Plasma 0.83 0.60 - 1.10 mg/dL BUN/Creatinine Ratio 27 Sodium, Plasma 141 136 - 145 mmol/L Potassium, Plasma 3.2 (L) 3.6 - 4.9 mmol/L Chloride, Plasma 107 97 - 107 mmol/L CO2, Plasma 22 22 - 29 mmol/L Anion Gap 12 6 - 16 mmol/L Total Calcium, Plasma 8.9 8.9 - 10.2 mg/dL eGFRcr 75.9 mL/min/1.73m*2 ECG Adult - POD#1 Collection Time: 12/28/24 2:41 AM Result Value Ref Range EKG DIAGNOSIS CLASS Abnormal Ventricular Rate 85 BPM Atrial Rate 85 BPM ND Interval 150 ms QRSD Interval 90 ms QT Interval 386 ms QTC Interval 459 ms P Vernon -1 degrees R Vernon -36 degrees T Wave Vernon 20 degrees Diagnosis Normal sinus rhythm Diagnosis Left axis deviation Diagnosis Anteroseptal infarct , age undetermined Diagnosis Abnormal ECG CBC Collection Time: 12/28/24 4:56 AM Result Value Ref Range WBC Count 8.36 3.70 - 10.30 10*3/uL RBC Count 3.29 (L) 3.90 - 5.20 10*6/uL HGB 10.0 (L) 11.2 - 15.7 g/dL HCT 30.3 (L) 34.0 - 45.0 % Platelet Count 122 (L) 155 - 369 10*3/uL MCV 92 79 - 98 fL MCH 30.4 26.0 - 32.0 pg MCHC 33.0 30.7 - 35.5 g/dL RDW 13.5 11.5 - 14.5 % MPV 10.8 8.8 - 12.5 fL nRBC 0.0 <=0.0 per 100 WBCs Basic metabolic panel Collection Time: 12/28/24 4:56 AM Result Value Ref Range Glucose, Plasma 99 74 - 99 mg/dL BUN, Plasma 20 8 - 23 mg/dL Creatinine, Plasma 0.83 0.60 - 1.10 mg/dL BUN/Creatinine Ratio 24 Sodium, Plasma 140 136 - 145 mmol/L Potassium, Plasma 4.1 3.6 - 4.9 mmol/L Chloride, Plasma 106 97 - 107 mmol/L CO2, Plasma 23 22 - 29 mmol/L Anion Gap 11 6 - 16 mmol/L Total Calcium, Plasma 8.9 8.9 - 10.2 mg/dL eGFRcr 75.9 mL/min/1.73m*2 Magnesium Collection Time: 12/28/24 4:56 AM Result Value Ref Range Magnesium, Plasma 1.6 (L) 1.9 - 2.4 mg/dL Echo, Adult Transthoracic (TTE) Limited Collection Time: 12/28/24 7:35 AM Result Value Ref Range BSA 1.89 m2 Height 165.1 Weight 81.2 LVOT diam 21 mm LVOT AREA 3.5 cm2 LV V1 VTI 26.4 cm SV(LVOT) 91 mL LV V1 Vmax 134.0 cm/s Ao V2 VTI 46.7 cm Ao mean PG 15 mmHg Ao V2 Vmax 253.0 cm/s Ao max PG 26 mmHg AV VTI Index 0.57 ADELAIDA(I,D) 2.0 cm2 ADELAIDA(VTI)/BSA_phl 1.0 cm2/m2 LV mean PG 4.0 mmHG LV V1 mean 90.7 cm/sec LV max PG 7.2 mmHg AV-pr VR 0.6 Ao V2 mean 186.0 cm/s LV EDV(MOD-4ch) 120 mL LV ESV(MOD4ch) 39 mL EF(MOD-sp4) 68 % LV EDV(MOD-2ch) 111 mL EDV(MOD-bp) 116 mL LV ESV(MOD2ch) 36 mL EF(MOD-sp2) 68 % ESV(MOD-bp) 38 mL EF(MOD-bp) 68 % LVLs ap2 6.4 mm Accel Time 80 ms LVET 270 ms AT/ET 0.30 Limited ECHO 12/28/2024: Interpretation Summary Aortic Valve: There is a transcatheter bioprosthetic valve (23 mm Maria D) that is well-seated. The bioprosthetic leaflets are thin and move normally. There is no valvular regurgitation. There is no paravalvular leak. The peak gradient is 26 mmHg. The mean gradient is 15 mmHg. DVI 0.53. EOAi 1 cm2/m2. SV 91 ml. The gradient is abnormally high for this prosthetic valve due to high cardiac output. Left Ventricle: The left ventricular systolic function is vigorous with an estimated left ventricular ejection fraction of 65-70% Right Ventricle: The right ventricular systolic function is grossly normal. Pericardium: No pericardial effusion. Compared to the most recently available prior study, and allowing for differences in image quality and technique, aortic valve gradient has increased in setting of high cardiac output. Echocardiographic Findings Left Ventricle The left ventricular systolic function is vigorous with an estimated left ventricular ejection fraction of 65-70%. The peak intracavitary gradient is 24 mmHg with valslava. No regionalwall motion abnormalities are seen. Right Ventricle The right ventricular systolic function is grossly normal. Left Atrium The left atrium is dilated by visual assessment. The interatrial septum is intact with no evidence for an atrial septal defect. Aortic Valve There is a transcatheter bioprosthetic valve (23 mm Maria D) that is well-seated. The bioprosthetic leaflets are thin and move normally. There is no valvular regurgitation. There is no paravalvular leak. The peak gradient is 26 mmHg. The mean gradient is 15 mmHg. DVI 0.53. EOAi 1 cm2/m2. SV 91 ml. The gradient is abnormally high for this prosthetic valve due to high cardiac output. Mitral Valve There is mild mitral regurgitation. IVC/SVC Based on the IVC size and respiratory variation, the estimated right atrial pressure is 3mmHg. Pericardium Evidence of epicardial fat. No pericardial effusion. Mmode/2D Measurements and Calculations LV EDV(MOD-4ch): 120 mL LVOT diam: 21 mm LV EDV(MOD-2ch): 111 mL LV ESV(MOD2ch): 36 mL LV ESV(MOD4ch): 39 mL EF(MOD-bp): 68 % Doppler Measurements and Calculations (Range) LV V1 VTI: 26.4 cm LV V1 Vmax: 134 cm/s Ao V2 Vmax: 253 cm/s Additional Measurements and Calculations LVET: 270 ms LV ESV(MOD4ch): 39 mL Ao mean P mmHg Ao V2 mean: 186 cm/s LVLs ap2: 6.4 mm AV-pr VR: 0.6 Study Details A limited transthoracic echocardiogram using limited 2D, color flow Doppler and limited spectral Doppler imaging was performed. Overall the study quality was good. Heart rate was normal. Height: 165.1 cm. Weight: 81.2 kg. BSA: 1.89 m2. The heart rhythm during this exam was most suggestive of a sinus rhythm. EKGs and Telemetry during admission: Groin Access Site Photos: Right Groin Site post-op day #1 Left Groin Site post-op day #1 Discharge Medications: Medication List .. amLODIPine 5 MG tablet Commonly known as: Norvasc Take 1 tablet by mouth daily. aspirin 81 MG EC tablet Take 1 tablet by mouth daily. lisinopril-hydroCHLOROthiazide 20-12.5 MG tablet Take 2 tablets by mouth daily. meloxicam 15 MG tablet Commonly known as: Mobic Take 1 tablet by mouth daily. Osimertinib Mesylate 80 MG tablet Take 1 tablet by mouth 1 (one) time each day. potassium chloride CR 10 MEQ ER tablet Commonly known as: Klor-Con Take 1 tablet by mouth daily. Do not crush, chew, or split. Follow-Up / Post Discharge Instructions Activity & Incision Instructions: For 1 weeks, do not lift anything heavier than 10 pounds (about the weight of a gallon of milk). Do not drive for 24 hours after procedure. You can shower within the next 24 hours. Do not submerge your incision in water. No tub baths, hot tubs or swimming pools for 7-10 days. If your incision has a dressing over it, you may remove those later today and shower. You do NOT need to place a new dressing over it. It will heal from the inside out. Every day, check the area around your incision site for signs of infection or problems. If bleeding from groin site occurs, hold pressure and contact the Structural Team at [phone]. If after hours, call [phone]. For emergencies, call [phone]. Follow up: You will have an echocardiogram and follow-up with the Structural Team in 1 month. If you have not received a follow up appointment at the time of discharge, they will be in contact with you in the next few days via phone or mail reminder. If you do not hear from someone within 3-5 days, call the [facility] at [phone] for more information. Please call Dylon Pope RN, with any other questions. Medication Instructions: Antibiotics are required prior to all dental visits. Take Medication exactly as instructed in your discharge packet Do not take any medications that have not been ordered for you. This means do not take other people's medication, illegal drugs or substances. The following information is obtained directly from the [employer]. https://www.heart.org/en/health-topics/infective-endocarditis What is Infective Endocarditis? Infective endocarditis (IE), also called bacterial endocarditis, is an infection caused by bacteriathat enter the bloodstream and settle in the heart lining, a heart valve or a blood vessel. IE is uncommon, but people with some heart conditions have a greater risk of developing it. Risk factors for developing IE include: - Heart valve disease. - Previous heart valve surgery. - Congenital heart disease. - Intravenous drug use. - Previous history of IE. Dental Procedures and Infective Endocarditis People with the highest risk for poor outcomes from IE may be prescribed antibiotics (IE prophylaxis) prior to certain dental procedures to reduce their risk of developing it. These include procedures that involve manipulation of gingival (gum) tissue or the periapical region (area around the roots) of teeth, or perforation of the oral mucosa. Antibiotic prophylaxis is reasonable before the above-mentioned dental procedures for people with heart valve disease who have any of the following: - Prosthetic cardiac valves, including transcatheter-implanted prostheses and homografts. - Prosthetic material used for heart valve repair, such as annuloplasty rings, chords or clips. - Previous IE. - Unrepaired cyanotic congenital heart defect ( defects with oxygen levels lower than normal) or repaired congenital heart defect, with residual shunts or valvular regurgitation at the site adjacent to the site of a prosthetic patch or prosthetic device. - Cardiac transplant with valve regurgitation due to a structurally abnormal valve. - Except for the conditions listed above, antibiotic prophylaxis before dental procedures is not recommended for any other types of congenital heart disease. In addition, antibiotic prophylaxis is not recommended for patients with valvular heart disease whoare at high risk of IE for nondental procedures (e.g., TIM, esophagogastroduodenoscopy, colonoscopy, or cystoscopy) in the absence of active infection. You can reduce the risk of IE by maintaining good oral health through regular professional dental care and the use of dental products such as manual, powered and ultrasonic toothbrushes; dental floss; and other plaque-removal devices. Please see table below for antibiotic prophylactic regimen options. Single dose regimen 30-60 minutes prior to dental procedure. Situation Agent Dose Oral Amoxicillin 2g Unable to take oral medication (choose one) Ampicillin Cefazolin or ceftriaxone 2g IM or IV 1g IM or IV Allergic to penicillin or ampicillin - Oral regimen (choose one) Cephalexin Azithromycin or clarithromycin Doxycycline 2g 500 mg 100 mg Allergic to penicillin and ampicillin and unable to take oral medication (choose one) Cefazolin or ceftriaxone 1g IM or IV Please note that clindamycin is no longer recommended for antibiotic prophylaxis for a dental procedure. Outpatient Follow-Up Future Appointments Date Time Provider Department Center 04/02/2025 9:[address] [facility] 04/02/2025 10:30 AM GADI[facility] 2 [facility] 04/02/2025 1:15 PM [facility] 04/02/2025 1:40 PM Rudolph Dillard MD [facility] Discharge Disposition/Condition Disposition: Home Condition: Stable (s/sx potential problems absent or manageable) I spent > 30min working on this discharge including performing physical examination, review of laboratory/imaging results with the patient, discussion of medication management, and preparation of discharge paperwork. Kaleb Bond APRN [id number] Cosigned by Brian Flores MD at 12/28/2024 11:21 AM EDT Associated attestation - Brian Flores MD - 12/28/2024 11:21 AM EDT The patient was seen only by Advanced Practice Provider ([facility]). * Nursing Note - Nela Perez RN - 12/27/2024 1:50 PM EDT Report called to SONI Tolentino. Patient bedrest completes at 3pm, pat currently at HOB @ 30 degrees perorder. Bilateral groin site dressings clean and dry. Patient in queue for transport to CDU. * Op Note - Gladys Lopez MD - 12/27/2024 9:54 AM EDT Operative note TAVR : Date: 12/27/2024 Location: [facility] Name: Priya Lynn, : 1955, Pre-operative Diagnosis: Problem List[1] Post-operative Diagnosis: Problem List[2] Surgeons: This procedure was performed jointly by Cardiothoracic Surgery physicians and Interventional Cardiology. The primary Cardiothoracic Surgery hemstitching machine operator was Dr. Gladys Lopez. The primary Interventional Cardiology hemstitching machine operator was Dr Brian Cates Operation: Transcatheter aortic valve replacement (TAVR) with Maria D 3 valve Size 23 mm. Indication : Severe, symptomatic aortic stenosis. Brief History: The patient is an 69 y.o. -year-old female with the above-mentioned medical history, who was referred to our valve program for management of severe symptomatic aortic stenosis. Given his comorbidity our team recommended transcatheter aortic valve replacement. The patient and family understood the be nefits and risks and agreed to proceed with the procedure. Procedure Description: The patient was taken to the operating room, placed on the operating table in supine position. Local anesthesia and sedation was used for this procedure. The patient was prepped and draped in usual surgical fashion. Using Seldinger technique and under fluoroscopy and ultrasound guidance we accessedthe right femoral artery and right femoral vein and left femoral artery. Then, using the left femoral artery we placed a pigtail catheter into the area of the right coronary cusp and we obtained a root angiography verifying our working angles. Then through the right femoral vein we placed a temporary pacing wire into the right ventricle and we verified capture. The patient received heparin, then we placed the introducer sheath through the right femoral artery, then we crossed the mechoopda aortic valve with J-wire exchanged over pigtail into extra small Safari wire. The Maria D 3 valve and its delivery system which were checked on the back table were brought to the field and introduced to the Patient thru the right femoral access site. Once we reached the descending aorta the valve was mounted on the balloon under fluoroscopy and theentire assembly was advanced to the level of the mechoopda aortic valve and positioned so that the middle marker on the balloon is sitting at the sofia of right coronary cusp. The pusher mechanism was pulled back under fluoroscopy, and rapid V-pacing pacing was started, once the hemodynamic response was verified, the balloon was inflated and held at maximum inflation for 4 seconds, then the balloon was deflated and rapid V-pacing was stopped and the patient hemodynamics recovered quickly. Transthoracic echo showed good functioning valve with a mean of 8 mmHg and no evidence of paravalvular leak. Root angiography showed good filling of coronary ostia with no paravalvular leak. The patienttolerated the procedure. The access catheter removed and hemostasis was obtained with Perclose system on the right femoral artery and the left femoral artery and pressure on the right femoral vein. The patient was taken to the recovery room and was hemodynamically stable and in sinus rhythm. [1] Patient Active Problem List Diagnosis Essential hypertension 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) Encounter for antineoplastic chemotherapy COVID-19 vaccination not done Flu vaccine need Adenocarcinoma of left lung (CMS/HCC) Arthritis Arthritis of right hip Bone lesion Severe aortic stenosis BMI 29.0-29.9,adult Nonrheumatic aortic valve stenosis [2] Patient Active Problem List Diagnosis Essential hypertension 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) Encounter for antineoplastic chemotherapy COVID-19 vaccination not done Flu vaccine need Adenocarcinoma of left lung (CMS/HCC) Arthritis Arthritis of right hip Bone lesion Severe aortic stenosis BMI 29.0-29.9,adult Nonrheumatic aortic valve stenosis * H&P - Dian Yancey PA - 12/27/2024 9:20 AM EDT Cardiology Admission History and Physical History of Present Illness Priya Lynn is a 69 year old female who presents for an elective transcatheter aortic valve replacement (TAVR) per Dr. Brian Flores. Past medical history significant for aortic valve stenosis, HTN, stage 4 NSCLC. Evaluated by [facility] on 10/29/2024. Reported symptoms activity limitation but partially contributed by hip pain. Uses walker for ambulation. Has been on oral chemotherapy, which causes some fatigue. Denies chest discomfort and dyspnea. Recommended TAVR work-up. Evaluated by CT Surgery on 11/19/2024. Case then discussed at the multidisciplinary valve conference on 11/22/2024. Plans made for proceed with TAVR. No meds to hold pre-op. Patient meets criteria for TAVR, Transcatheter Aortic Valve Replacement, according to the [facility] National Coverage Decision.?Case data will be extracted and entered into the NCDR Clinical Registry/[facility] Research as required by the National Coverage Decision.? NCT Identifier [id number]. Cardiac Diagnostics: Echo - 10/03/2024: LVEF 55%. with MG 37 and PG 77 mmHg, ADELAIDA 0.8 cm2. Mild MR. ECG - 09/28/2024: NSR with PVCs. HR 85 bpm. QRS 86 ms. Review of Systems: 14 point review of systems negative except as noted in HPI. Past Medical History[1] Medications: Current Outpatient Medications Medication Instructions amLODIPine (Norvasc) 5 MG tablet 1 tablet, Daily aspirin 81 mg, Daily Calcium 600-200 MG-UNIT tablet 1 tablet, Daily lisinopril-hydroCHLOROthiazide 20-12.5 MG tablet 2 tablets, Daily meloxicam (MOBIC) 15 mg, Daily Osimertinib Mesylate 80 MG tablet 1 tablet, Oral, Daily potassium chloride CR (Klor-Con) 10 MEQ ER tablet 10 mEq, Daily Surgical History[2] Family History[3] Social History Socioeconomic History Marital status: Spouse name: Not on file Number of children: Not on file Years of education: Not on file Highest education level: Not on file Occupational History Not on file Tobacco Use Smoking status: Never Smokeless tobacco: Never Vaping Use Vaping status: Never Used Substance and Sexual Activity Alcohol use: Never Drug use: Never Sexual activity: Defer Other Topics Concern Not on file Social History Narrative Not on file Social Drivers of Health Financial Resource Strain: Not on file Food Insecurity: Not on file Transportation Needs: Not on file Physical Activity: Not on file Stress: Not on file Social Connections: Unknown (04/23/2023) Received from [facility] Family and Community Support Help with Day-to-Day Activities: Not on file Lonely or Isolated: Not on file Intimate Partner Violence: Unknown (04/23/2023) Received from [facility] Abuse Screen Unsafe at Home or Work/School: Not on file Feels Threatened by Someone?: Not on file Does Anyone Keep You from Contacting Others or Doint Things Outside the Home?: Not on file Physical Sign of Abuse Present: Not on file Housing Stability: Unknown (04/23/2023) Received from [facility] Housing Stability Current Living Arrangements: Not on file Potentially Unsafe Housing Conditions: Not on file Allergies: Allergies[4] Vitals Visit Vitals BP (!) 142/83 Pulse 101 Temp 36.8 ??C (98.2 ??F) Ht 1.651 m (5' 5 ) Wt 81.6 kg (179 lb 14.3 oz) SpO2 96% BMI 29.94 kg/m?? No intake or output data in the 24 hours ending 12/27/24 0920 Physical Exam Physical Exam Vitals and nursing note reviewed. Constitutional: Appearance: Normal appearance. HENT: Head: Normocephalic and atraumatic. Nose: Nose normal. Mouth/Throat: Mouth: Mucous membranes are moist. Eyes: Conjunctiva/sclera: Conjunctivae normal. Cardiovascular: Rate and Rhythm: Normal rate and regular rhythm. Pulses: Normal pulses. Heart sounds: S1 normal and S2 normal. Murmur heard. Harsh midsystolic murmur is present at the upper right sternal border radiating to the neck. Pulmonary: Effort: Pulmonary effort is normal. Breath sounds: Normal breath sounds. Abdominal: General: Abdomen is flat. Palpations: Abdomen is soft. Musculoskeletal: General: Normal range of motion. Cervical back: Neck supple. Skin: General: Skin is warm and dry. Neurological: General: No focal deficit present. Mental Status: She is alert and oriented to person, place, and time. Psychiatric: Attention and Perception: Attention normal. Mood and Affect: Mood normal. Behavior: Behavior normal. Labs and Imaging Labs in last 18 hours CBC WBC 7.04 Hb 11.8 Plt 170 Hct 35.4 ANC ?? INR ??, PTT ??, Anti-Xa ?? BMP Na 143 Cl 106 BUN 24 (H) Glu 94 K 3.5 (L) Co2 23 Cr 0.91 Ca 9.5 iCa ?? Mg ??, Phos ?? Lactate ?? LFT AST ?? AlkPhos ?? T Prot ?? ALK ?? Bili ?? Alb ?? D.Bili ?? ECG: No electrocardiogram results found for the past 3 days. Assessment and Plan Priya Lynn is a 69 year old female who presents for an elective transcatheter aortic valve replacement (TAVR) per Dr. Brian Flores. #Aortic Stenosis --Severe, symptomatic aortic stenosis --Discussed in multi-disciplinary conference, deemed suitable for TAVR --TAVR procedure discussed at length including risks, consent signed --Proceed with TAVR Ly Yancey PA-C [facility] [1] Past Medical History: Diagnosis Date Arthritis Cancer (CMS/HCC) uterine, ovarian, with brain mets High blood pressure Osteoarthritis [2] Past Surgical History: Procedure Laterality Date BRONCHOSCOPY RIGID / FLEXIBLE N/A CHOLECYSTECTOMY N/A COLONOSCOPY 08/02/2023 GAMMA KNIFE 2020 HYSTERECTOMY N/A LUNG BIOPSY [3] Family History Problem Relation Name Age of Onset Cervical cancer Mother Lung cancer Father Lung cancer Brother Liver cancer Brother Anesthesia problems Neg Hx Malig Hyperthermia Neg Hx [4] No Known Allergies * Hospital Course - Kaleb Bond APRN - 12/24/2024 10:04 AM EDT Priya Lynn is a 69 year old female who presents for an elective transcatheter aortic valve replacement (TAVR) per Dr. Brian Flores. Past medical history significant for aortic valve stenosis, HTN, stage 4 NSCLC. Evaluated by [facility] on 10/29/2024. Reported symptoms activity limitation but partially contributed by hip pain. Uses walker for ambulation. Has been on oral chemotherapy, which causes some fatigue. Denies chest discomfort and dyspnea. Recommended TAVR work-up. Evaluated by [facility] on 11/19/2024. Case then discussed at the multidisciplinary valve conference on 11/22/2024. Plans made for proceed with TAVR. No meds to hold pre-op. Patient meets criteria for TAVR, Transcatheter Aortic Valve Replacement, according to the [facility] National Coverage Decision.?Case data will be extracted and entered into the [facility] Clinical Registry/[facility] Research as required by the National Coverage Decision.? NCT Identifier [id number]. 12/27/2024 S/P TAVR with 23 mm Maria D [address] Brian Flores MD ([facility]). Cardiac Diagnostics: Echo - 10/03/2024: LVEF 55%. with MG 37 and PG 77 mmHg, ADELAIDA 0.8 cm2. Mild MR. ECG - 09/28/2024: NSR with PVCs. HR 85 bpm. QRS 86 ms. # Aortic Valve Stenosis - Symptoms: difficult to determine based on co-morbidities and medication side-effects. - Diagnostics as above. - Home medications: ASA 81 mg PO daily. Plan: - 12/27/2024 S/P TAVR with 23 mm Maria D [address] Brian Flores MD ([facility]). - Routine pre and post-op care. - Pre-op antimicrobial: vancomycin 1,250 mg IV once + Ancef 2 g IV once. - Admit to inpatient cardiology post-op. - Limited ECHO post-op to evaluate valve and for pericardial effusion. - CXR, ECG, and labs in AM. - Antiplatelet plan pending. - Follow-up with [facility] in 1 month with ECHO. Chronic Conditions: # Hypertension - Home medications: amlodipine, lisinopril-hydrochlorothiazide. - 2g Na diet. # Non-Small Cell Lung Cancer - Follows with Oncology. Last seen 12/11/2024. - Home medication: osimeritinib mesylate 80 mg PO daily. documented in this encounter Plan of Treatment Upcoming Encounters Date Type Department Care Team (Late st Contact Info) Description 02/11/2025 1:05 PM EDT Hospital Encounter [facility] Operating Room [address] [place] [phone] Abdelrahman Betancur MD [address] [place] [address] 02/11/2025 1:05 PM EDT Anesthesia Event [facility] S Operating Room [address] [place] [phone] Evelyn Julian, SURGICAL SERVICES TECH [address] [facility] [address] [place] [phone] 02/11/2025 1:05 PM EDT - 02/11/2025 3:30 PM EDT Surgery [facility] S Operating Room [address] [place] [phone] Abdelrahman Betancur MD [address] [place] [address] ARTHROPLASTY, HIP, TOTAL, ANTERIOR APPROACH [91069 (CPT )] 02/26/2025 11:20 AM EDT Office Visit Medical [facility] Building [facility] [address], [address] [place] [address] Renetta Stoner PA [address] [place] [address] 03/06/2025 10:00 AM EDT Appointment Medical Office Building Cardiac Diagnostic Testing Medical Office Building Echo Lab [address], [address] [place] [address] 03/06/2025 11:30 AM EDT Office Visit [facility] [address] [facility], [address] [place] [address] Dian Yancey PA [address] [place] [address] 03/26/2025 11:10 AM EDT Office Visit Medical Office Building [facility] [address] [facility], [address] [place] [address] Abdelrahman Betancur MD [address] [address] 04/02/2025 9:40 AM EDT Appointment [facility] [address] [place] [phone] 04/02/2025 10:30 AM EDT Appointment [facility] [address] [place] [phone] 04/02/2025 1:15 PM EDT Clinical Support [facility] [address] [facility] [place] [phone] 04/02/2025 1:40 PM EDT Office Visit [facility] [address] [facility] [place] [phone] Rudolph Dillard MD [address] [address] 04/08/2025 7:30 AM EDT Hospital Encounter [facility] Operating Room [address] [place] [address] Abdelrahman Betancur MD [address] [facility] [address] [place] [address] 04/08/2025 7:30 AM EDT - 04/08/2025 10:15 AM EDT Surgery [facility] Operating Room [address] [place] [address] Abdelrahman Betancur MD [address] [facility] [address] [place] [address] ARTHROPLASTY, HIP, TOTAL, ANTERIOR APPROACH [14246 (CPT )] 04/23/2025 11:00 AM EDT Office Visit Medical Office Building [facility] [address] [facility], [address] [place] [address] Renetta Stoner PA [address] [facility] [address] [place] [address] 05/21/2025 11:10 AM EST Office Visit Medical Office Building [facility] [address] [facility], [address] [place] [address] Abdelrahman Betancur MD [address] [facility] [address] [place] [address] 01/08/2026 2:00 PM EDT Appointment Medical Office Building Cardiac Diagnostic Testing Medical Office Building Echo Lab [address] [facility], [address] [place] [address] 01/08/2026 3:00 PM EDT Office Visit [facility] [address] [facility], [address] [place] [address] Dian aYncey PA [address] [place] [phone] Scheduled Procedures Name Priority Associated Diagnoses Date/Ti me ARTHROPLASTY, HIP, TOTAL, ANTERIOR APPROACH Arthritis of left hip 02/11/2025 1:05 PM EDT ARTHROPLASTY, HIP, TOTAL, ANTERIOR APPROACH Arthritis of right hip 04/08/2025 7:30 AM EDT Scheduled Referrals Name Type Priority Associated Diagnoses Order Schedule Discharge Ambulatory referral to Cardiac Rehab Outpatient Referral Routine S/P TAVR (transcatheter aortic valve replacement) 1 Occurrences starting 12/28/2024 until 12/28/2025 documented as of this encounter Goals Goal Patient Goal Type Associated Problems Recent Progress Patient-Stated? Author Autogenerat ed Goal Care Plan Autogenerated Problem No Latisha Sun Autogenerat ed Goal Care Plan Autogenerated Problem No Latisha Sun documented as of this encounter Procedures Procedure Name Priority Date/Time Associated Diagnosis Comments ECHO, ADULT TRANSTHORACIC LIMITED W/ COLOR AND DOPPLER Timed 12/28/2024 7:35 AM EDT CBC W/O DIFFERENTIAL Routine 12/28/2024 4:56 AM EDT MAGNESIUM, PLASMA Routine 12/28/2024 4:5 6 AM EDT BASIC METABOLIC PANEL, PLASMA Routine 12/28/2024 4:56 AM EDT ECG ADULT Routine 12/28/2024 2:41 AM EDT XR CHEST 1 VIEW Routine 12/28/2024 2:41 AM EDT CBC W/O DIFFERENTIAL Routine 12/27/2024 1:09 PM EDT BASIC METABOLIC PANEL, PLASMA Routine 12/27/2024 1:09 PM EDT ECG ADULT STAT 12/27/2024 11:49 AM EDT ECHO, ADULT TRANSTHORACIC LIMITED W/ COLOR AND DOPPLER Routine 12/27/2024 11:12 AM EDT TAVR Routine 12/27/2024 11:12 AM EDT Nonrheumatic aortic valve stenosis POCT ACT UNSOLICITED RESULTS Routine 12/27/2024 10:32 AM EDT IMPLANTATION, AORTIC VALVE, TRANSCATHETER 12/27/2024 9:39 AM EDT Nonrheumatic aortic valve stenosis POCT CREATININE ISTAT UNSOLICITED RESULTS Routine 12/27/2024 8:29 AM EDT N-TERMINAL PROBNP, PLASMA STAT 12/27/2024 8:24 AM EDT CBC W/O DIFFERENTIAL STAT 12/27/2024 8:24 AM EDT TYPE AND SCREEN Routine 12/27/2024 8:24 AM EDT BASIC METABOLIC PANEL, PLASMA STAT 12/27/2024 8:24 AM EDT documented in this encounter Results * ECHO, ADULT TRANSTHORACIC LIMITED W/ COLOR AND DOPPLER (12/28/2024 7:35 AM EDT) BSA 1.89 m2 OLEG ISCV Height 165.1 OLEG ISCV Weight 81.2 OLEG ISCV LVOT diam 21 mm OLEG ISCV LVOT AREA 3.5 cm2 OLEG ISCV LV V1 VTI 26.4 cm OLEG ISCV SV(LVOT) 91 mL OLEG ISCV LV V1 Vmax 134.0 cm/s OLEG ISCV Ao V2 VTI 46.7 cm OLEG ISCV Ao mean PG 15 mmHg OLEG ISCV Ao V2 Vmax 253.0 cm/s OLEG ISCV Ao max PG 26 mmHg OLEG ISCV AV VTI Index 0.57 OLEG ISCV ADELAIDA(I,D) 2.0 cm2 OLEG ISCV ADELAIDA(VTI)/BSA_ph l 1.0 cm2/m2 OLEG ISCV LV mean PG 4.0 mmHG OLEG ISCV LV V1 mean 90.7 cm/sec OLEG ISCV LV max PG 7.2 mmHg OLEG ISCV AV-pr VR 0.6 OLEG ISCV Ao V2 mean 186.0 cm/s OLEG ISCV LV EDV(MOD-4ch) 120 mL OLEG ISCV LV ESV(MOD4ch) 39 mL OLEG ISCV EF(MOD-sp4) 68 % OLEG ISCV LV EDV(MOD-2ch) 111 mL OLEG ISCV EDV(MOD-bp) 116 mL OLEG ISCV LV ESV(MOD2ch) 36 mL OLEG ISCV EF(MOD-sp2) 68 % OLEG ISCV ESV(MOD-bp) 38 mL OLEG ISCV EF(MOD-bp) 68 % OLEG ISCV LVLs ap2 6.4 mm OLEG ISCV Accel Time 80 ms OLEG ISCV LVET 270 ms OLEG ISCV AT/ET 0.30 OLEG ISCV Anatomical Region Laterality Modality Echocardiography Narrative 12/28/2024 8:53 AM EDT Aortic Valve: There is a transcatheter bioprosthetic valve (23 mm Maria D) that is well-seated. The bioprosthetic leaflets are thin and move normally. There is no valvular regurgitation. There is no paravalvular leak. The peak gradient is 26 mmHg. The mean gradient is 15 mmHg. DVI 0.53. EOAi 1 cm2/m2. SV 91 ml. The gradient is abnormally high for this prosthetic valve due to high cardiac output. Left Ventricle: The left ventricular systolic function is vigorous with an estimated left ventricular ejection fraction of 65-70% Right Ventricle: The right ventricular systolic function is grossly normal. Pericardium: No pericardial effusion. Compared to the most recently available prior study, and allowing for differences in image quality and technique, aortic valve gradient has increased in setting of high cardiac output. Left Ventricle The left ventricular systolic function is vigorous with an estimated left ventricular ejection fraction of 65-70%. The peak intracavitary gradient is 24 mmHg with valslava. No regional wall motion abnormalities are seen. Right Ventricle The right ventricular systolic function is grossly normal. Left Atrium The left atrium is dilated by visual assessment. The interatrial septum is intact with no evidence for an atrial septal defect. IVC/SVC Based on the IVC size and respiratory variation, the estimated right atrial pressure is 3mmHg. Mitral Valve There is mild mitral regurgitation. Aortic Valve There is a transcatheter bioprosthetic valve (23 mm Maria D) that is well-seated. The bioprosthetic leaflets are thin and move normally. There is no valvular regurgitation. There is no paravalvular leak. The peak gradient is 26 mmHg. The mean gradient is 15 mmHg. DVI 0.53. EOAi 1 cm2/m2. SV 91 ml. The gradient is abnormally high for this prosthetic valve due to high cardiac output. Pericardium Evidence of epicardial fat. No pericardial effusion. Study Details A limited transthoracic echocardiogram using limited 2D, color flow Doppler and limited spectral Doppler imaging was performed. Overall the study quality was good. Heart rate was normal. Height: 165.1 cm. Weight: 81.2 kg. BSA: 1.89 m2. The heart rhythm during this exam was most suggestive of a sinus rhythm. Study Recommendation Compared to the most recently available prior study, and allowing for differences in image quality and technique, aortic valve gradient has increased in setting of high cardiac output. Kaleb Bond APRN CV ECHO PROCEDURES Final Re sult * (ABNORMAL) Magnesium (12/28/2024 4:56 AM EDT) Magnesium, Plasma 1.6(L) 1.9 - 2.4 mg/dL 12/28/2024 5:33 AM EDT [facility] Blood Venous blood specimen / Unknown Venipuncture / Unknown 12/28/2024 4:56 AM EDT 12/28/2024 5:02 AM EDT Kaleb Bond APRN LAB BLOOD ORDERABLES Final Result [facility] [address] [place] [address] * Basic metabolic panel (12/28/2024 4:56 AM EDT) Glucose, Plasma 99 74 - 99 mg/dL 12/28/2024 5:33 AM EDT [facility] BUN, Plasma 20 8 - 23 mg/dL 12/28/2024 5:33 AM EDT [facility] Creatinine, Plasma 0.83 0.60 - 1.10 mg/dL 12/28/2024 5:33 AM EDT [facility] BUN/Creatinine Ratio 24 12/28/2024 5:33 AM EDT [facility] Sodium, Plasma 140 136 - 145 mmol/L 12/28/2024 5:33 AM EDT [facility] Potassium, Plasma 4.1 3.6 - 4.9 mmol/L 12/28/2024 5:33 AM EDT [facility] Chloride, Plasma 106 97 - 107 mmol/L 12/28/2024 5:33 AM EDT [facility] CO2, Plasma 23 22 - 29 mmol/L 12/28/2024 5:33 AM EDT [facility] Anion Gap 11 6 - 16 mmol/L 12/28/2024 5:33 AM EDT [facility] Total Calcium, Plasma 8.9 8.9 - 10.2 mg/dL 12/28/2024 5:33 AM EDT [facility] eGFRcr 75.9 mL/min/1.7 3m*2 12/28/2024 5:33 AM EDT [facility] Comment:Reported eGFRcr in m L/min/1.73m2 is based the CKD-EPI 2020 equation that does not use a race coefficient. Blood Venous blood specimen / Unknown Venipuncture / Unknown 12/28/2024 4:56 AM EDT 12/28/2024 5:02 AM EDT us Kaleb Bond APRN LAB BLOOD ORDERABLES Final Result [facility] [address] [place] [address] * (ABNORMAL) CBC (12/28/2024 4:56 AM EDT) WBC Count 8.36 3.70 - 10.30 10*3/uL LAB HEMATOLOGY METHOD 12/28/2024 5:15 AM EDT [facility] RBC Count 3.29(L) 3.90 - 5.20 10*6/uL LAB HEMATOLOGY METHOD 12/28/2024 5:15 AM EDT [facility] HGB 10.0(L) 11.2 - 15.7 g/dL LAB HEMATOLOGY METHOD 12/28/2024 5:15 AM EDT [facility] HCT 30.3(L) 34.0 - 45.0 % LAB HEMATOLOGY METHOD 12/28/2024 5:15 AM EDT [facility] Platelet Count 122(L) 155 - 369 10*3/uL LAB HEMATOLOGY METHOD 12/28/2024 5:15 AM EDT [facility] MCV 92 79 - 98 fL LAB HEMATOLOGY METHOD 12/28/2024 5:15 AM EDT [facility] MCH 30.4 26.0 - 32.0 pg LAB HEMATOLOGY METHOD 12/28/2024 5:15 AM EDT [facility] MCHC 33.0 30.7 - 35.5 g/dL LAB HEMATOLOGY METHOD 12/28/2024 5:15 AM EDT [facility] RDW 13.5 11.5 - 14.5 % LAB HEMATOLOGY METHOD 12/28/2024 5:15 AM EDT [facility] MPV 10.8 8.8 - 12.5 fL LAB HEMATOLOGY METHOD 12/28/2024 5:15 AM EDT [facility] nRBC 0.0 <=0.0 per 100 WBCs LAB HEMATOLOGY METHOD 12/28/2024 5:15 AM EDT [facility] Blood Venous blood specimen / Unknown Venipuncture / Unknown 12/28/2024 4:56 AM EDT 12/28/2024 5:03 AM EDT us Kaleb Bond APRN LAB BLOOD ORDERABLES Final Result Performing Organization Address City/[facility] Co de Phone Number [facility] [address] [place] [address] * ECG Adult - POD#1 (12/28/2024 2:41 AM EDT) EKG DIAGNOSIS CLASS Abnormal MUSE ECG Ventricular Rate 85 BPM MUSE ECG Atrial Rate 85 BPM MUSE ECG ND Interval 150 ms MUSE ECG QRSD Interval 90 ms MUSE ECG QT Interval 386 ms MUSE ECG QTC Interval 459 ms MUSE ECG P Vernon -1 degrees MUSE ECG R Vernon -36 degrees MUSE ECG T Wave Vernon 20 degrees MUSE ECG Diagnosis Normal sinus rhythm MUSE ECG Diagnosis Left axis deviation MUSE ECG Diagnosis Anteroseptal infarct , age undetermined MUSE ECG Diagnosis MUSE ECG Diagnosis MUSE ECG Diagnosis Confirmed by Bret Yepez ([id number]) on 12/28/2024 5:35:03 PM MUSE ECG 12/28/2024 2:41 AM EDT 12/28/2024 5:35 PM EDT us Kaleb Bond APRN ECG ORDERABLES Final Resul t MUSE ECG * XR Chest 1 View (12/28/2024 2:41 AM EDT) Anatomical Region Laterality Modality Chest Digital Radiogra phy Impressions 12/28/2024 8:08 AM EDT Postprocedure changes without focal consolidation or pneumothorax. CRITICAL RESULT: No. COMMUNICATION: Per this written report. Drafted by Kyle Nelson MD on 12/28/2024 8:07 AM Final report signed by Kyle Nelson MD on 12/28/2024 8:08 AM Narrative 12/28/2024 8:08 AM EDT CLINICAL INDICATION: S/P TAVR TECHNIQUE: XR CHEST 1 VIEW COMPARISON: January 04, 2021. FINDINGS: Residual scarring within the left midlung. Emphysema. Cardiomediastinal silhouette is enlarged. Aortic valve replacement Procedure Note Kyle Nelson MD - 12/28/2024 CLINICAL INDICATION: S/P TAVR TECHNIQUE: XR CHEST 1 VIEW COMPARISON: January 04, 2021. FINDINGS: Residual scarring within the left midlung. Emphysema. Cardiomediastinalsilhouette is enlarged. Aortic valve replacement IMPRESSION: Postprocedure changes without focal consolidation or pneumothorax. CRITICAL RESULT: No. COMMUNICATION: Per this written report. Drafted by Kyle Nelson MD on 12/28/2024 8:07 AM Final report signed by Kyle Nelson MD on 12/28/2024 8:08 AM Kaleb Bond APRN IMG XR PROCEDURES Final Res ult * (ABNORMAL) Basic metabolic panel (12/27/2024 1:09 PM EDT) Glucose, Plasma 92 74 - 99 mg/dL 12/27/2024 2:24 PM EDT [facility] BUN, Plasma 22 8 - 23 mg/dL 12/27/2024 2:24 PM EDT [facility] Creatinine, Plasma 0.83 0.60 - 1.10 mg/dL 12/27/2024 2:24 PM EDT [facility] BUN/Creatinine Ratio 27 12/27/2024 2:24 PM EDT [facility] Sodium, Plasma 141 136 - 145 mmol/L 12/27/2024 2:24 PM EDT [facility] Potassium, Plasma 3.2(L) 3.6 - 4.9 mmol/L 12/27/2024 2:24 PM EDT [facility] Chloride, Plasma 107 97 - 107 mmol/L 12/27/2024 2:24 PM EDT [facility] CO2, Plasma 22 22 - 29 mmol/L 12/27/2024 2:24 PM EDT [facility] Anion Gap 12 6 - 16 mmol/L 12/27/2024 2:24 PM EDT [facility] Total Calcium, Plasma 8.9 8.9 - 10.2 mg/dL 12/27/2024 2:24 PM EDT [facility] eGFRcr 75.9 mL/min/1.7 3m*2 12/27/2024 2:24 PM EDT [facility] Comment:Reported eGFRcr in m L/min/1.73m2 is based the CKD-EPI 2020 equation that does not use a race coefficient. Blood Venous blood specimen / Unknown Venipuncture / Unknown 12/27/2024 1:09 PM EDT 12/27/2024 1:45 PM EDT Kaleb Bond APRN LAB BLOOD ORDERABLES Final Result [facility] [address] [place] [address] * (ABNORMAL) CBC (12/27/2024 1:09 PM EDT) WBC Count 9.03 3.70 - 10.30 10*3/uL LAB HEMATOLOGY METHOD 12/27/2024 1:53 PM EDT [facility] RBC Count 3.45(L) 3.90 - 5.20 10*6/uL LAB HEMATOLOGY METHOD 12/27/2024 1:53 PM EDT [facility] HGB 10.4(L) 11.2 - 15.7 g/dL LAB HEMATOLOGY METHOD 12/27/2024 1:53 PM EDT [facility] HCT 31.5(L) 34.0 - 45.0 % LAB HEMATOLOGY METHOD 12/27/2024 1:53 PM EDT [facility] Platelet Count 143(L) 155 - 369 10*3/uL LAB HEMATOLOGY METHOD 12/27/2024 1:53 PM EDT [facility] MCV 91 79 - 98 fL LAB HEMATOLOGY METHOD 12/27/2024 1:53 PM EDT [facility] MCH 30.1 26.0 - 32.0 pg LAB HEMATOLOGY METHOD 12/27/2024 1:53 PM EDT [facility] MCHC 33.0 30.7 - 35.5 g/dL LAB HEMATOLOGY METHOD 12/27/2024 1:53 PM EDT [facility] RDW 13.6 11.5 - 14.5 % LAB HEMATOLOGY METHOD 12/27/2024 1:53 PM EDT [facility] MPV 11.1 8.8 - 12.5 fL LAB HEMATOLOGY METHOD 12/27/2024 1:53 PM EDT [facility] nRBC 0.0 <=0.0 per 100 WBCs LAB HEMATOLOGY METHOD 12/27/2024 1:53 PM EDT [facility] Blood Venous blood specimen / Unknown Venipuncture / Unknown 12/27/2024 1:09 PM EDT 12/27/2024 1:41 PM EDT Kaleb Bond APRN LAB BLOOD ORDERABLES Final Result [facility] [address] [place] [address] * ECG Adult (12/27/2024 11:49 AM EDT) EKG DIAGNOSIS CLASS Abnormal MUSE ECG Ventricular Rate 78 BPM MUSE ECG Atrial Rate 78 BPM MUSE ECG ND Interval 162 ms MUSE ECG QRSD Interval 102 ms MUSE ECG QT Interval 428 ms MUSE ECG QTC Interval 487 ms MUSE ECG P Vernon 36 degrees MUSE ECG R Vernon 14 degrees MUSE ECG T Wave Vernon -39 degrees MUSE ECG Diagnosis Normal sinus rhythm MUSE ECG Diagnosis Anteroseptal infarct , age undetermined MUSE ECG Diagnosis T wave abnormality, consider inferior ischemia MUSE ECG Diagnosis Long QTc MUSE ECG Diagnosis Abnormal ECG MUSE ECG Diagnosis MUSE ECG Diagnosis Confirmed by Doe Lion ([id number]) on 12/27/2024 2:49:27 PM MUSE ECG 12/27/2024 11:4 9 AM EDT 12/27/2024 2:49 PM EDT Dat [facility] SURGICAL SERVICES TECH ECG ORDERABLES Final Resu lt MUSE ECG * ECHO, ADULT TRANSTHORACIC LIMITED W/ COLOR AND DOPPLER (12/27/2024 11:12 AM EDT) BSA 1.93 m2 OLEG ISCV Ao V2 VTI 43.0 cm OLEG ISCV Ao mean PG 8 mmHg OLEG ISCV Ao V2 Vmax 189.0 cm/s OLEG ISCV Ao max PG 14 mmHg OLEG ISCV Ao V2 mean 133.5 cm/s OLEG ISCV Anatomical Region Laterality Modality Echocardiography Narrative 12/27/2024 11:25 AM EDT Aortic Valve: There is a appropriately positioned transcatheter bioprosthetic valve (23 mm Maria D 3) that is well-seated. There is no valvular regurgitation. There is no paravalvular leak. The peak gradient is 14 mmHg. The mean gradient is 8 mmHg. The gradient is normal for this prosthetic valve. Left Ventricle: The left ventricular systolic function is hyperdynamic with an estimated left ventricular ejection fraction of >70%. Pericardium: No pericardial effusion. There is no recent study available for direct [id number] comparison. Left Ventricle The left ventricle is normal size. The left ventricular systolic function is hyperdynamic with an estimated left ventricular ejection fraction of >70%. Mitral Valve There is physiologic amount of mitral regurgitation. Aortic Valve There is a appropriately positioned transcatheter bioprosthetic valve (23 mm Maria D 3) that is well-seated. There is no valvular regurgitation. There is no paravalvular leak. The peak gradient is 14 mmHg. The mean gradient is 8 mmHg. The gradient is normal for this prosthetic valve. Pericardium No pericardial effusion. Study Details A limited transthoracic echocardiogram using limited 2D imaging was performed. During the study the apical and parasternal view was captured. Heart rate was normal. BSA: 1.93 m2. The heart rhythm during this exam was most suggestive of a sinus rhythm. Study Recommendation There is no recent study available for direct [id number] comparison. Brian Flores MD CV ECHO PROCEDURES Final R esult * TAVR (12/27/2024 11:12 AM EDT) Anatomical Region Laterality Modality Other Narrative 12/27/2024 11:27 AM EDT Successful transfemoral transcatheter aortic valve replacement with a 23 mm Maria D S3 Ultra valve 1) Admit to the Inpatient Cardiology NIA Team for at least overnight observation on telemetry. 2) Aspirin 81 mg daily indefinitely. 3) Antibiotics prior to dental procedures for life. 4) Repeat echocardiogram in 4 hours. 5) Complete blood count and basic metabolic panel 2 hours post-procedure (fresh stick) 6) Follow-up in Structural NIA clinic in 4 weeks with echocardiogram and EKG We, Drs. Brian Flores and Gladys Lopez, were present for the entire procedure. Procedure Details Procedures Performed: 1. Ultrasound-guided vascular access 2. Temporary pacemaker wire insertion 3. Aortography 4. Transfemoral transcatheter aortic valve replacement with 23 mm Maria D S3 Ultra valve Procedure Indication: The patient is a 69-year-old woman with hypertension, stage IV lung cancer (on chemotherapy for 4 years), and aortic stenosis. She needs a hip replacement and pre-operative echocardiogram showed severe aortic stenosis (ADELAIDA 0.8 cm^2 with peak gradient of 77 mm Hg). Her activity is limited by hip pain. The case was discussed at our Multi-Disciplinary Valve Team Conference. We recommended aortic valve intervention. After considering the risks and benefits, the patient decided to proceed with TAVR. Procedure In Detail: After written, informed consent was obtained, the patient was transported to the cardiac catheterization laboratory in the fasting state. A Time Out was performed to verify the correct patient, procedure, and access sites. The bilateral groins were prepped and draped in the usual sterile fashion. The anesthesia team administered intravenous conscious sedation. Using ultrasound guidance and the modified Seldinger technique, the following vascular access was obtained: 1) Right common femoral vein: 8-Sudanese short Terumo sheath 2) Right common femoral artery: 6-Sudanese short Terumo sheath 3) Left common femoral artery: 7-Sudanese short Terumo sheath The 6-Sudanese right common femoral arterial sheath was upsized to an 8-Sudanese sheath after 2 Preclose sutures were deployed. Heparin was given for a goal ACT>250. Antibiotics were given. The 8-Sudanese right femoral arterial sheath was upsized to the 14-Sudanese Zavala sheath over a Safari wire. A temporary pacemaker wire was advanced from the venous sheath to the right ventricular apex. Thresholds were tested and confirmed to be adequate. A 6-Sudanese angled pigtail catheter was inserted from the left common femoral arterial sheath to the right coronary cusp. An aortogram was performed to confirm the correct coplanar angle. The aortic valve was crossed from the E-sheath using an exchange-length J-tip wire and a 6-Sudanese AL1 diagnostic catheter. The AL1 catheter was removed and a 6- Sudanese angled pigtail catheter was advanced over the wire to the left ventricular apex. The pigtail catheter was then removed over an extra-small Safari wire. The 23 mm Maria D S3 Ultra valve was prepped on the delivery system in the usual fashion on the back table. Correct valve orientation was confirmed by the team members. The system was advanced over the Safari wire until the valve was in the correct position in relation to the annulus. Aortography confirmed the correct position. During rapid ventricular pacing, the valve was deployed. Post-deployment, the patient's blood pressure and heart rate returned to normal. Post-deployment echocardiography showed no pericardial effusion and no significant aortic regurgitation. Post-deployment aortography confirmed that there was no significant aortic regurgitation. Vascular hemostasis was obtained as follows: 1) Right common femoral artery: The 2 Preclose sutures were tightented. 2) Left common femoral artery: A Perclose suture was deployed. 3) Right common femoral vein: Manual pressure Protamine was given. The patient was transported back to the Post-Anesthesia Care Unit (PACU) in good condition. No immediate intraprocedural complications were observed. Study Details Severe Hemodynamic Data Pressures Phase: Resting Aortic AO: 113/49 (74) mmHg us Brian Folres MD CV CARDIAC CATH PROCEDURES Final Result * POCT ACT (12/27/2024 10:32 AM EDT) [facility] Signature ACT (Low Range) 336 65 - 400 seconds 01/21/2025 9:15 AM EDT [employer] [facility] Sales Trainer ID Bertha Franz 01/21/2025 9:15 AM EDT [facility] ACT Device ID [id number] 01/21/2025 9:15 AM EDT HEALTHCARE LAB Comment 01/21/2025 9:15 AM EDT [facility] Comment: ACT performed by staff at point of care. Results are reported immediately to the physician or primary caregiver. The activated clotting time is performed on patients with diverse clinical characteristics and treatment histories. Therefore, expected values are variable and results must be interpreted in the context of each individual patient. Whole Blood Venous blood specimen / Unknown 12/27/2024 10:32 AM EDT 01/21/2025 9:15 AM EDT Brian Flores MD LAB POINT OF CARE TEST DOCKED DEVICE UNSOLICITED RESULTS Final Result Performing Organization Address [facility] Co de Phone Number HEALTHCARE LAB [address] [place] [address] LAB [address] [place] [address] * POCT creatinine (12/27/2024 8:29 AM EDT) [facility] Creatinine, Point of Care 1.0 0.6 - 1.1 mg/dL 12/27/2024 8:33 AM EDT HEALTHCARE LAB POCT eGFR 61 mL/min/1. 73m*2 12/27/2024 8:33 AM EDT HEALTHCARE LAB Sales Trainer ID Nela Perez 12/27/2024 8:33 AM EDT [facility] Device ID [id number] 12/27/2024 8:33 AM EDT [facility] Comment 12/27/2024 8:33 AM EDT [facility] Comment:Testing performed on i-STAT at the point of care. Reported eGFRcr in mL/min/1.73m2 is based the CKD-EPI 2020 equation that does not use a race coefficient. Blood Venous blood specimen / Unknown 12/27/2024 8:29 AM EDT 12/27/2024 8:33 AM EDT us Brian Flores MD LAB POINT OF CARE TEST DOCKED DEVICE UNSOLICITED RESULTS Final Result Performing Organization Address City/[facility]/ZIP Co de Phone Number HEALTHCARE LAB [address] [place], [place] [address] [address] [place] [address] * Type and Screen (12/27/2024 8:24 AM EDT) ABO/Rh O Positive 12/27/2024 8:05 AM EDT BLOOD BANK Antibody Screen Negative 12/27/2024 8:05 AM EDT BLOOD BANK Specimen Expiration 12/30/2024 23:59 12/27/2024 8:05 AM EDT BLOOD BANK Blood Venous blood specimen / Unknown Venipuncture / Unknown 12/27/2024 8:24 AM EDT 12/27/2024 8:33 AM EDT us Glynn Bella MD LAB BLOOD BANK TEST ORDERABLES Final Result BLOOD BANK [address] * N-Terminal Probnp (12/27/2024 8:24 AM EDT) N-Terminal, PROBNP, Plasma 348 0 - 899 pg/mL 12/27/2024 9:[address] [facility] Blood Venous blood specimen / Unknown Venipuncture / Unknown 12/27/2024 8:24 AM EDT 12/27/2024 8:34 AM EDT Dta Dickson APRN LAB BLOOD ORDERABLES Final Result [facility] [address] [place] [address] * (ABNORMAL) Basic metabolic panel (12/27/2024 8:24 AM EDT) Glucose, Plasma 94 74 - 99 mg/dL 12/27/2024 9:14 AM EDT [facility] BUN, Plasma 24(H) 8 - 23 mg/dL 12/27/2024 9:14 AM EDT [facility] Creatinine, Plasma 0.91 0.60 - 1.10 mg/dL 12/27/2024 9:14 AM EDT [facility] BUN/Creatinine Ratio 26 12/27/2024 9:14 AM EDT [facility] Sodium, Plasma 143 136 - 145 mmol/L 12/27/2024 9:14 AM EDT [facility] Potassium, Plasma 3.5(L) 3.6 - 4.9 mmol/L 12/27/2024 9:14 AM EDT [facility] Chloride, Plasma 106 97 - 107 mmol/L 12/27/2024 9:14 AM EDT [facility] CO2, Plasma 23 22 - 29 mmol/L 12/27/2024 9:14 AM EDT [facility] Anion Gap 14 6 - 16 mmol/L 12/27/2024 9:14 AM EDT [facility] Total Calcium, Plasma 9.5 8.9 - 10.2 mg/dL 12/27/2024 9:14 AM EDT [facility] eGFRcr 68.0 mL/min/1.7 3m*2 12/27/2024 9:14 AM EDT [facility] Comment:Reported eGFRcr in m L/min/1.73m2 is based the CKD-EPI 2020 equation that does not use a race coefficient. Blood Venous blood specimen / Unknown Venipuncture / Unknown 12/27/2024 8:24 AM EDT 12/27/2024 8:34 AM EDT us Dat Dickson APRN LAB BLOOD ORDERABLES Final Result [facility] [address] [place] [address] * Hemogram (CBC) (12/27/2024 8:24 AM EDT) WBC Count 7.04 3.70 - 10.30 10*3/uL LAB HEMATOLOGY METHOD 12/27/2024 8:52 AM EDT [facility] RBC Count 3.90 3.90 - 5.20 10*6/uL LAB HEMATOLOGY METHOD 12/27/2024 8:52 AM EDT [facility] HGB 11.8 11.2 - 15.7 g/dL LAB HEMATOLOGY METHOD 12/27/2024 8:52 AM EDT [facility] HCT 35.4 34.0 - 45.0 % LAB HEMATOLOGY METHOD 12/27/2024 8:52 AM EDT [facility] Platelet Count 170 155 - 369 10*3/uL LAB HEMATOLOGY METHOD 12/27/2024 8:52 AM EDT [facility] MCV 91 79 - 98 fL LAB HEMATOLOGY METHOD 12/27/2024 8:52 AM EDT [facility] MCH 30.3 26.0 - 32.0 pg LAB HEMATOLOGY METHOD 12/27/2024 8:52 AM EDT [facility] MCHC 33.3 30.7 - 35.5 g/dL LAB HEMATOLOGY METHOD 12/27/2024 8:52 AM EDT [facility] RDW 13.5 11.5 - 14.5 % LAB HEMATOLOGY METHOD 12/27/2024 8:52 AM EDT [facility] MPV 10.9 8.8 - 12.5 fL LAB HEMATOLOGY METHOD 12/27/2024 8:52 AM EDT [facility] nRBC 0.0 <=0.0 per 100 WBCs LAB HEMATOLOGY METHOD 12/27/2024 8:52 AM EDT [facility] Blood Venous blood specimen / Unknown Venipuncture / Unknown 12/27/2024 8:24 AM EDT 12/27/2024 8:33 AM EDT Dat Dickson APRN LAB BLOOD ORDERABLES Final Result Performing Organization Address City/State/[facility] Co de Phone Number [facility] [address] [place] [address] documented in this encounter Visit Diagnoses Diagnosis Nonrheumatic aortic valve stenosis- Primary Nonrheumatic aortic valve stenosis S/P TAVR (transcatheter aortic valve replacement) Nonrheumatic aortic valve stenosis Arthritis of left hip- Primary Arthritis of left hip Arthritis of right hip documented in this encounter Admitting Diagnoses Diagnosis Nonrheumatic aortic valve stenosis documented in this encounter Administered Medications Inactive Administered Medications - up to 3 most recent administrations Medication Order MAR Action Action Date Dose Rate Site acetaminophen (Tylenol) tablet 1,000 mg 1,000 mg, Oral, Once, 1 dose, On Zenia 12/27/24 at 0900, Routine, Holding - Preprocedure Given 12/27/2024 9:40 AM EDT 1,000 mg acetaminophen (Tylenol) tablet 650 mg 650 mg, Oral, Every 6 hours PRN, Starting on Zenia 12/27/24 at 1136, Until Tue12/28/24 at 1515, Routine, Recovery(Phase II-Outpatient)/On Unit(Inpatient), fever, mild pain, >38.5 C amLODIPine (Norvasc) tablet 5 mg 5 mg, Oral, Daily, First dose on Tue12/28/24 at 0900, Until Discontinued, Routine Given 12/28/2024 8:09 AM EDT 5 mg aspirin chewable tablet 81 mg 81 mg, Oral, Daily, First dose on Tue12/28/24 at 0900, Until Discontinued Given 12/28/2024 8:09 AM EDT 81 mg ceFAZolin (Ancef) injection 2 g 2 g, Intravenous, Once, 1 dose, On Zenia 12/27/24 at 0900, Routine, Anesthesia Intraprocedure Given 12/27/2024 9:28 AM EDT 2 g hydroCHLOROthiazide (HYDRODiuril) tablet 25 mg 25 mg, Oral, Daily, First dose on Tue12/28/24 at 0900, Until Discontinued, Routine Given 12/28/2024 8:09 AM EDT 25 mg lisinopril tablet 40 mg 40 mg, Oral, Daily, First dose on Tue12/28/24 at 0900, Until Discontinued, Routine Given 12/28/2024 8:09 AM EDT 40 mg magnesium sulfate IVPB 4 g 4 g, Intravenous, Once, 1 dose, On Tue12/28/24 at 0745, Routine New Bag 12/28/2024 8:09 AM EDT 4 g 25 mL/hr meloxicam (Mobic) tablet 15 mg 15 mg, Oral, Daily with dinner, First dose on Zenia 12/27/24 at 1800, Until Discontinued, Routine Given 12/27/2024 6:55 PM EDT 15 mg methocarbamol (Robaxin) tablet 750 mg 750 mg, Oral, 3 times daily PRN, Starting on Zenia 12/27/24 at 1252, Until Tue12/28/24 at 1515, Routine, muscle spasms Given 12/27/2024 2:38 PM EDT 750 mg potassium chloride CR (Klor-Con) ER tablet 10 mEq 10 mEq, Oral, Daily, First dose on Tue12/28/24 at 0900, Until Discontinued, Routine Given 12/28/2024 8:09 AM EDT 10 mEq potassium chloride CR (Klor-Con) ER tablet 40 mEq 40 mEq, Oral, Every 4 hours, 2 doses, First dose on Zenia 12/27/24 at 1700, Last dose on Tue12/27/24 at 2100, Routine Given 12/27/2024 8:37 PM EDT 40 mEq Given 12/27/2024 5:57 PM EDT 40 mEq sodium chloride 0.9 % flush 10 mL 10 mL, Intravenous, Every 12 hours, First dose on Zenia 12/27/24 at 0900, Until Discontinued, Routine, Holding - Preprocedure Given 12/27/2024 9:2 8 AM EDT 10 mL vancomycin in NS (Vancocin) IVPB 1,250 mg 1,250 mg (rounded from 1,234.5 mg = 15 mg/kg 82.3 kg Order-specific weight), Intravenous, Once, 1 dose, On Zenia 12/27/24 at 0900, at 200 mL/hr, STAT Bolus 12/27/2024 9:54 AM EDT 1.25 g New Bag 12/27/2024 9:26 AM EDT 1,250 mg 200 mL/hr documented in this encounter Active and Recently Administered Medications Times are shown in EDT. Scheduled Medication Order 12/26/2024 12/27/2024 12/28/2024 acetaminophen (Tylenol) tablet 1,000 mg (COMPLETED) 1,000 mg, Oral, Once, 1 dose, On Tue12/27/24 at 0900, Routine, Holding - Preprocedure 0940 (Given - Provider: Nela Perez RN) amLODIPine (Norvasc) tablet 5 mg 5 mg, Oral, Daily, First dose on Tue12/28/24 at 0900, Until Discontinued, Routine 808 (Given - Provid er: Shravan Ivory RN) aspirin chewable tablet 81 mg 81 mg, Oral, Daily, First dose on Tue12/28/24 at 0900, Until Discontinued 808 (Given - Provid er: Shravan Ivory RN) ceFAZolin (Ancef) injection 2 g (COMPLETED) 2 g, Intravenous, Once, 1 dose, On Tue12/27/24 at 0900, Routine, Anesthesia Intraprocedure 0928 (Given - Provider: Nela Perez RN) hydroCHLOROthiazide (HYDRODiuril) tablet 25 mg 25 mg, Oral, Daily, First dose on Tue12/28/24 at 0900, Until Discontinued, Routine 08 (Given - Provid er: Shravan Ivory RN) lactated Ringer's infusion (COMPLETED) 100 mL/hr, Intravenous, Once, 1 dose, On Tue12/27/24 at 0900, Routine 0830 (Not Given - Provider: Nela Perez RN - Reason: Medication not available)0954 (New Bag - Provider: Makayla Tapia MD)1119 (Stopped - Provider: Makayla Tapia MD) lisinopril tablet 40 mg 40 mg, Oral, Daily, First dose on Tue12/28/24 at 0900, Until Discontinued, Routine 08 (Given - Provid er: Shravan Ivory RN) magnesium sulfate IVPB 4 g (COMPLETED) 4 g, Intravenous, Once, 1 dose, On Tue12/28/24 at 0745, Routine 08 (New Bag - Provider: Shravan Ivory RN) meloxicam (Mobic) tablet 15 mg 15 mg, Oral, Daily with dinner, First dose on Tue12/27/24 at 1800, Until Discontinued, Routine 185 (Given - Provider: Randa Fraga RN) potassium chloride CR (Klor-Con) ER tablet 10 mEq 10 mEq, Oral, Daily, First dose on Tue12/28/24 at 0900, Until Discontinued, Routine 808 (Given - Provid er: Shravan Ivory RN) potassium chloride CR (Klor-Con) ER tablet 40 mEq (COMPLETED) 40 mEq, Oral, Every 4 hours, 2 doses, First dose on Tue12/27/24 at 1700, Last dose on Tue12/27/24 at 2100, Routine 175 (Given - Provider: Randa Fraga RN)2036 (Given - Provider: Lokesh Reddy RN) sodium chloride 0.9 % flush 10 mL (CANCELED)(Linked Group 1) 10 mL, Intravenous, Every 12 hours, First dose on Tue12/27/24 at 0900, Until Discontinued, Routine, Holding - Preprocedure 0928 (Given - Provider: Nela Perez, SONI) vancomycin in NS (Vancocin) IVPB 1,250 mg (COMPLETED) 1,250 mg (rounded from 1,234.5 mg = 15 mg/kg 82.3 kg Order-specific weight), Intravenous, Once, 1 dose, On Zenia 12/27/24 at 0900, at 200 mL/hr, STAT 0926 (New Bag - Provider: Nela Perez RN)0954 (Bolus - Provider: Makayla Tapia MD)1041 (Stopped - Provider: Nela Perez RN) PRN Medication Order 12/26/2024 12/27/2024 12/28/2024 acetaminophen (Tylenol) tablet 650 mg 650 mg, Oral, Every 6 hours PRN, Starting on Zenia 12/27/24 at 1136, Until Tue12/28/24 at 1515, Routine, Recovery(Phase II-Outpatient)/On Unit(Inpatient), fever, mild pain, >38.5 C iodixanol (VISIPaque) 320 MG/ML injection (CANCELED) As needed, Starting on Zenia 12/27/24 at 1059, Until Zenia 12/27/24 at 1122, Routine, Intraprocedure 1059 (Given - Provider: Brian Flores MD - Comment: TAVR procedure total) lidocaine (Xylocaine) 2 % injection (CANCELED) As needed, Starting on Zenia 12/27/24 at 1021, Until Zenia 12/27/24 at 1122, Routine, Intraprocedure 1021 (Given - Provider: Brian Flores MD)1024 (Given - Provider: Brian Flores MD) methocarbamol (Robaxin) tablet 750 mg 750 mg, Oral, 3 times daily PRN, Starting on Zenia 12/27/24 at 1252, Until Tue12/28/24 at 1515, Routine, muscle spasms 1438 (Given - Provider: Lindsay Fraga, SONI) Linked Groups Order Group 1: sodium chloride 0.9 % flush 10 mL (CANCELED)Jump to med 10 mL, Intravenous, Every 12 hours, First dose on Zenia 12/27/24 at 0900, Until Discontinued, Routine, Holding - Preprocedure And sodium chloride 0.9 % flush 10 mL (CANCELED) 10 mL, Intravenous, As needed, Starting on Zenia 12/27/24 at 0804, Until Zenia 12/27/24 at 1417, Routine, Holding - Preprocedure, line care documented in this encounter Additional Health Concerns Active Problems Noted Date Diagnosed Date Autogenerated Problem 01/01/2025 Autogenerated Problem 01/07/2025 Assessment Noted Time PHQ-9 Depression Total Score: 0 10/30/19 12:42 PM EDT A fall risk assessment has been complete d for the patient 12/11/2024 3:00 PM EDT A Body Mass Index follow-up plan has been documented for the patient 12/28/2024 12:16 PM EDT documented as of this encounter Care Teams Printmaker Relationship Specialty Start Date End Date Wan Santoro MD [id number] [place] [address] PCP - General 01/20/21 Dalton Hurley MD [address] [facility] [address] [place] [address] Consulting Physician Radiation Therapy 03/27/21 Geovanny Dominguez MD [address] [facility] [address] [place] [address] Surgeon Neurosurgery 05/21/21 Rudolph Dillard MD [address] [facility] [address] [place] [address] Consulting Physician Medical Oncology 09/22/21 Abdiel Vargas, PRERNA [address] [place] [address] Nurse Practitioner Internal Medicine 04/09/22 Rodney Maria MD [address] [address] Referring Physician 11/14/24 Brian Flores MD [address] [place] [address] [phone] Consulting Physician Cardiology 11/14/24 documented as of this encounter
--- OUTSIDE RECORDS SUMMARY | 2024-12-27 09:54 | XMS_ITS | Encounter Summary ---
Author Organization [facility] Address [address] [place] [address] Care Team Providers Care Veterans Rehabilitation Counselor Name Role Phone Wan Santoro MD Primary Care Provider [phone] Dalton Hurley MD Unavailable [phone] Geovanny Dominguez MD Unavailable [phone] Rudolph Dillard MD Unavailable [phone] Abdiel Vargas APRN Unavailable [phone] Rodney Maria MD Unavailable [phone] Brian Flores MD Unavailable [phone] Reason for Visit * Auth/Cert (Routine) Specialty Diagnoses / Procedures Referred By Contac t Referred To Contact Diagnoses Nonrheumatic aortic valve stenosis Nonrheumatic aortic valve stenosis [I35.0] Procedures SC REPLACE AORTIC VALVE PERQ FEMORAL ARTRY APPROACH TAVR IMPLANTATION, AORTIC VALVE, TRANSCATHETER Brian Flores MD 800 [place] [address] Phone: tel: fax: Cardiac Chairman [address] [place] [address] Phone: tel: Referral ID Status Reason Start Date Expiration Date Visits Re quested Visits Authorized [id number] 1 1 Encounter Details Date Type Department Care Team (Late st Contact Info) Description 12/27/2024 9:54 AM EDT Anesthesia Event Cardiac Chairman [address] [place] [address] Glynn Bella MD [address] [place] [phone] Makayla Tapia MD [address] [place] [id number] Anesthesia Record Procedure Summary Procedure Name Responsible Anesthesiologist Anesthesia Start Time Anesthesia Stop Time TAVR Glynn Bella MD 12/27/24 0954 12/27/24 1125 Events Date Time Event Comment 12/27/2024 0954 An Start The patient was reevaluated immediately before sedation and remains eligible for anesthesia plan. 0954 In Room 0954 An Start Data 0955 ANPATVER 0955 Perfusion Start 1020 Proc Start 1034 ACT Performed 336 1112 Proc Fin 1119 an stop data 1119 Perfusion Stop 1122 Out of Room 1125 Handoff to Receiving I compl eted my handoff to the receiving clinician during which we: 1. Identified the patient 2. Identified the responsible provider 3. Reviewed the pertinent medical history 4. Discussed the surgical course 5. Reviewed intra-op anesthesia management and issues during anesthesia 6. Set expectations for post-procedure period 7. Allowed opportunity for questions and acknowledgement of understanding. 1125 An Stop Meds Name Total fentaNYL (Sublimaze) injection 50 mcg/mL 75 mcg dexmedetomidine (Precedex) infusion in N aCl 4 mcg/mL 12 mcg ceFAZolin (Ancef) vial 1 g 2 g vancomycin in NS (Vancocin) IVPB 1,250 m g 1.25 g heparin injection 1,000 units/mL 8,000 U nits phenylephrine (Diogo-Synephrine) prefilled syringe 1 mg/10 mL 200 mcg protamine injection 50 mg lactated Ringer's infusion 100 mL * Agents No agents on file. * Blood No blood administrations on file. Lines, Drains, and Airways Type Details Placement Removal Peripheral IV Placement Date: 12/16 09/11; Placement Time: 822; Catheter Size: 18 G; Orientation: Left; Location: Antecubital; Site Prep: Alcohol; Local Anesth: None; Technique: Anatomical landmarks; Inserted by: MA. Aniket RN; Patient Tolerance: Tolerated well; Removal Date: 12/28/24; Removal Time: 1215; Removal Reason: Discharge 12/27/24 0823 by Nela Perez RN 12/28/24 1215 by Shravan Ivory RN Peripheral IV Placement Date: 12/16 09/11; Placement Time: 0840; Orientation: Right, Posterior, Proximal; Location: Forearm; Site Prep: Alcohol; Local Anesth: None; Technique: Anatomical landmarks; Inserted by: DONTRELL Coyle RN; Insertion Attempts: 1; Patient Tolerance: Tolerated well; Removal Date: 12/28/24; Removal Time: 1215; Removal Reason: Discharge 12/27/24 0840 by Nela Perez RN 12/28/24 1215 by Shravan Ivory RN Arterial Sheath 12/27/24; 1024; No; Yes; 6 Fr.; Right; Femoral; No; MD Mark; Injectable; Chlorhexidine ; Yes; 12/27/24; 1102; Per protocol; No complications 12/27/24 1024 by Alida Irizarry RN 12/27/24 1102 by Alida Irizarry RN Arterial Sheath 12/27/24; 1025; No; Yes; 7 Fr.; Left; Femoral; No; MD Mark; Injectable; Chlorhexidine ; Yes; 12/27/24; 1106; Per protocol; No complications 12/27/24 1025 by Alida Irizarry RN 12/27/24 1106 by Alida Irizarry RN Venous Sheath 12/27/24; 1026; No; Yes; 8 Fr.; Right; Femoral; No; MD Mark; Injectable; Chlorhexidine ; Yes; 12/27/24; 1104; Per protocol; No complications 12/27/24 1026 by Alida Irizarry RN 12/27/24 1104 by Alida Irizarry RN documented in this encounter Social History Tobacco Use Types Packs/Day Years [...] Date of Assessment Author No Risk Indicated 12/27/2024 5:00 PM EDT Randa Burrell RN * Question Answer Date of Assessment Author 1. Wish to be (Past 1 Month) No 12/27/2024 5:00 PM EDT Randa Mclean RN 2. Non-Specific Active Suicidal Thoughts (Past 1 Month) No 12/27/2024 5:00 PM EDT Randa Mclean RN 6. Suicidal Behavior (Lifetime) No 12/27/2024 5:00 PM EDT Randa Mclean RN documented as of this encounter Miscellaneous Notes * Anesthesia Postprocedure Evaluation - Makayla Tapia MD - 12/27/2024 11:25 AM EDT Patient: Priya Lynn Anesthesia Type: MAC Vitals Value Taken Time BP 123/66 12/27/24 12:15 Temp 36.9 12/27/24 12:30 Pulse 77 12/27/24 12:29 Resp 17 12/27/24 12:29 SpO2 94 % 12/27/24 12:29 Vitals shown include unfiled device data. Anesthesia Post Evaluation Patient location during evaluation: PACU Patient participation: complete - patient participated Level of consciousness: baseline Pain management: adequate (pain score 0-3) Airway patency: natural airway Cardiovascular status: hemodynamically stable Respiratory status: acceptable and face mask Hydration status: acceptable Nausea/Vomiting: No There were no known notable events for this encounter. Cosigned by Glynn Bella MD at 12/27/2024 1:36 PM EDT Associated attestation - Glynn Bella MD - 12/27/2024 1:36 PM EDT I agree with the findings and care plan documented in the postprocedure evaluation note. * Anesthesia Preprocedure Evaluation - Glynn Bella MD - 12/26/2024 1:55 PM EDT Patient: Priya Lynn Procedure Information Date/Time: 12/27/24 1000 Procedures: TAVR IMPLANTATION, AORTIC VALVE, TRANSCATHETER Location: [facility] Providers: Brian Flores MD; Gladys Lopez MD Priya Lynn 69yoF presenting for TAVR. Past medical history: , HTN, lung ca s/p surgery, chemo, rxt (2020) with mets to brain, arthritis(hip) Past surgical history: bronch, lisandra, hysterectomy Social history: n/n/n/ Prior anesthesia history: The pt denies any problems with anesthesia in the past. Allergies: NKDA Anti-coagulation/anti-platelet: asa 81 METS/Activity Level: >4 NPO: 1500 for solids Lisinopril taken today. Results for orders placed or performed during the hospital encounter of 12/27/24 Hemogram (CBC) Collection Time: 12/27/24 8:24 AM [...] - 1.1 mg/dL POCT eGFR 61 mL/min/1.73m*2 Wire Stripping Machine Operator ID Nela Perez Device ID [id number] Comment Relevant Problems Cardio (+) Essential hypertension Pulmonary (+) Adenocarcinoma of left lung (CMS/HCC) Other (+) Arthritis (+) Arthritis of right hip ROS Cardiovascular: hypertension: Clinical information reviewed: ECHO- 10/04/24: LVEF 55%, AV area 0.8cm, peak velocity 4.3, mean gradient 37mmhg, max gradient 77mg. EKG- sinus w/ PVCs, L axis dev Labs- H/H 11.4, 34.1, plt 157. Cr 0.84, k 3.5. LFTs wnl. A1c 4.9. Vitals: 12/27/24 0820 BP: (!) 142/83 Pulse: 101 Resp: 16 Temp: 36.8 ??C (98.2 ??F) SpO2: 96% Physical Exam Airway Mallampati: I Mouth opening: normal TM distance: >3 FB Cardiovascular Rhythm: regular Rate: normal The radial pulses are 2+ bilaterally. Dental Pulmonary Breath sounds clear to auscultation Neurological Oriented: normal to time, normal to place and normal to person Skin Skin: warm and dry Musculoskeletal Extremities -normal exam Anesthesia Plan ASA 3 Plan was reviewed with: attending and resident Anesthesia technique(s) discussed with the patient/family: MAC and general Anesthesia plan agreed upon was: MAC Anesthetic plan and risks discussed with patient. Additional Equipment Requests documented in this encounter Plan of Treatment Upcoming Encounters Date Type Department Care Team (Late st Contact Info) Description 02/11/2025 1:05 PM EDT Hospital Encounter [facility] S Operating Room [address] [place] [address] Abdelrahman Betancur MD [address] [place] [address] 02/11/2025 1:05 PM EDT Anesthesia Event [facility] S Operating Room [address] [place] [phone] Evelyn Julian W, ALLIANCE DIRECTOR [address] [facility] [address] [place] [address] 02/11/2025 1:05 PM EDT - 02/11/2025 3:30 PM EDT Surgery [facility] S Operating Room [address] [place] [address] Abdelrahman Betancur MD [address] [place] [address] ARTHROPLASTY, HIP, TOTAL, ANTERIOR APPROACH [83324 (CPT )] 02/26/2025 11:20 AM EDT Office Visit Medical Office Building [facility] [address], [address] [place] [address] Renetta Stoner PA [address] [place] [address] 03/06/2025 10:00 AM EDT Appointment Medical Office Building Cardiac Diagnostic Testing Medical Office Building Echo Lab [address] [facility], [address] [place] [address] 03/06/2025 11:30 AM EDT Office Visit [facility] [place] [address] [facility], [address] [place] [address] Dian Yancey PA [address] [place] [address] 03/26/2025 11:10 AM EDT Office Visit Medical Office Building [facility] [address] [facility], [address] [place] [address] Abdelrahman Betancur MD [address] [facility] [address] [place] [address] 04/02/2025 9:40 AM EDT Appointment [facility] [address] [place] [address] 04/02/2025 10:30 AM EDT Appointment [facility] [address] [place] [address] 04/02/2025 1:15 PM EDT Clinical Support [facility] [address] [facility], 2nd [place] [address] 04/02/2025 1:40 PM EDT Office Visit [facility] [address] [facility], [address]nd [place] [address] Rudolph Dillard MD [address] [address] 04/08/2025 7:30 AM EDT Hospital Encounter [facility] Operating Room [address] [phone] Abdelrahman Betancur MD [address] [facility] [address] [place] [address] 04/08/2025 7:30 AM EDT - 04/08/2025 10:15 AM EDT Surgery [facility] Operating Room [address] [place] [address] Abdelrahman Betancur MD [address] [facility] [address] [place] [address] ARTHROPLASTY, HIP, TOTAL, ANTERIOR APPROACH [10907 (CPT )] 04/23/2025 11:00 AM EDT Office Visit Medical Office Building [facility] [address] [facility], [address] [place] [address] Renetta Stoner PA [address] [facility] [address] [place] [address] 05/21/2025 11:10 AM EST Office Visit Medical Office Building [facility] [address] [facility], [address] [place] [address] Abdelrahman Betancur MD [address] [facility] [address] [place] [address] 01/08/2026 2:00 PM EDT Appointment Medical Office Building Cardiac Diagnostic Testing Medical Office Building Echo Lab [address] [facility], [address] [place] [address] 01/08/2026 3:00 PM EDT Office Visit [facility] [place] [address] [facility], [address] [place] [address] Dian Yancey PA [address] [place] [address] Scheduled Procedures Name Priority Associated Diagnoses Date/Ti me ARTHROPLASTY, HIP, TOTAL, ANTERIOR APPROACH Arthritis of left hip 02/11/2025 1:05 PM EDT ARTHROPLASTY, HIP, TOTAL, ANTERIOR APPROACH Arthritis of right hip 04/08/2025 7:30 AM EDT documented as of this encounter Visit Diagnoses Not on filedocumented in this encounter Administered Medications Inactive Administered Medications - up to 3 most recent administrations Medication Order MAR Action Action Date Dose Rate Site ceFAZolin (Ancef) injection Intravenous, As needed, Starting on Zenia 12/27/24 at 1006, Until Zenia 12/27/24 at 1230, Routine, Anesthesia Intraprocedure Given 12/27/2024 10:06 AM EDT 2 g dexmedetomidine in NS (Precedex) 4 mcg/mL infusion Intravenous, As needed, Starting on Zenia 12/27/24 at 1001, Until Zenia 12/27/24 at 1230, Routine Given 12/27/2024 10:26 AM EDT 4 mcg Given 12/27/2024 10:06 AM EDT 4 mcg Given 12/27/2024 10:01 AM EDT 4 mcg fentaNYL (Sublimaze) injection Intravenous, As needed, Starting on Zenia 12/27/24 at 1006, Until Zenia 12/27/24 at 1230, Routine, Anesthesia Intraprocedure Given 12/27/2024 10:54 AM EDT 25 mcg Given 12/27/2024 10:20 AM EDT 25 mcg Given 12/27/2024 10:06 AM EDT 25 mcg heparin (porcine) injection Intravenous, As needed, Starting on Zenia 12/27/24 at 1029, Until Zenia 12/27/24 at 1230, Routine, Anesthesia Intraprocedure Given 12/27/2024 10:29 AM EDT 8,000 Units lactated Ringer's infusion 100 mL/hr, Intravenous, Once, 1 dose, On Zenia 12/27/24 at 0900, Routine New Bag 12/27/2024 9:54 AM EDT phenylephrine in NS (Diogo-Synephrine) 100 mcg/mL prefilled syringe Intravenous, As needed, Starting on Zenia 12/27/24 at 1036, Until Zenia 12/27/24 at 1230, Routine, Anesthesia Intraprocedure Given 12/27/2024 10:50 AM EDT 50 mcg Given 12/27/2024 10:48 AM EDT 50 mcg Given 12/27/2024 10:42 AM EDT 50 mcg protamine injection Intravenous, As needed, Starting on Zenia 12/27/24 at 1058, Until Zenia 12/27/24 at 1230, Routine, Anesthesia Intraprocedure Given 12/27/2024 10:58 AM EDT 50 mg vancomycin in NS (Vancocin) IVPB 1,250 mg 1,250 mg (rounded from 1,234.5 mg = 15 mg/kg 82.3 kg Order-specific weight), Intravenous, Once, 1 dose, On Zenia 12/27/24 at 0900, at 200 mL/hr, STAT Bolus 12/27/2024 9:54 AM EDT 1.25 g New Bag 12/27/2024 9:26 AM EDT 1,250 mg 200 mL/hr documented in this encounter Additional Health Concerns Assessment Noted Time PHQ-9 Depression Total Score: 0 10/30/19 25 12:42 PM EDT A fall risk assessment has been complete d for the patient 12/11/2024 3:00 PM EDT A Body Mass Index follow-up plan has been documented for the patient 12/28/2024 12:16 PM EDT documented as of this encounter Care Teams Veterans Rehabilitation Counselor Relationship Specialty Start Date End Date Wan Santoro MD [id number] [place] [address] PCP - General 01/20/21 Dalton Hurley MD 800 [facility] [address] [place] [address] Consulting Physician Radiation Therapy 03/27/21 Geovanny Dominguez MD [address] [place] [address] Surgeon Neurosurgery 05/21/21 Rudolph Dillard MD [address] [place] [address] Consulting Physician Medical Oncology 09/22/21 Abdiel Vargas, PRERNA [address] [facility] [address] [place] [address] Nurse Practitioner Internal Medicine 04/09/22 Rodney Maria MD [address] [address] Referring Physician 11/14/24 Brian Flores MD [address] [place] [phone] Consulting Physician Cardiology 11/14/24 documented as of this encounter
--- OUTSIDE RECORDS SUMMARY | 2024-12-27 10:00 | XMS_ITS | Encounter Summary ---
Author Organization [facility] Address [address] [place] [address] Care Team Providers Care Chief Medical Director Name Role Phone Wan Santoro MD Primary Care Provider [phone] Dalton Hurley MD Unavailable [phone] Geovanny Dominguez MD Unavailable [phone] Rudolph Dillard MD Unavailable [phone] Abdiel Vargas APRN Unavailable [phone] Rodney Maria MD Unavailable [phone] Brian Flores MD Unavailable [phone] Reason for Visit * Auth/Cert (Routine) Specialty Diagnoses / Procedures Referred By Contac t Referred To Contact Diagnoses Nonrheumatic aortic valve stenosis Nonrheumatic aortic valve stenosis [I35.0] Procedures MN REPLACE AORTIC VALVE PERQ FEMORAL ARTRY APPROACH TAVR IMPLANTATION, AORTIC VALVE, TRANSCATHETER Brian Flores MD [address] [place] [address] Phone: tel: fax: Cardiac Picture Frame Maker [address] [place] [address] Phone: tel: Referral ID Status Reason Start Date Expiration Date Visits Re quested Visits Authorized [id number] 1 1 Encounter Details Date Type Department Care Team (Late st Contact Info) Description 12/27/2024 10:00 AM EDT - 12/27/2024 12:00 PM EDT Surgery Cardiac Picture Frame Maker [address] [place] [address] Brian Flores MD [address] [place] [phone] TAVR [12633 (CPT )] Surgery Details Date/Time Status Location OR Service Patient Class Case Class Case Type Trauma Case? 12/27/2024 10:00 AM Posted JASON CIRCUIT BREAKER ASSEMBLER CIRCUIT BREAKER ASSEMBLER 04 Cardiovascular Surgery Admit E-Electi ve Panel 1 Procedure LRB Anes Op Region Wound Class Comments TAVR N/A Panel 2 Procedure LRB Anes Op Region Wound Class Comments IMPLANTATION, AORTIC VALVE, TRANSCATHETER N/A Surgeon Surgeon Role Service Panel Gladys Lopez MD Primary Cardiothoracic Surger y 2 Gladys Lopez MD Primary Cardiothoracic Surger y 2 Brian Flores MD Primary Cardiovascular 1 documented in this encounter Social History Tobacco [...] Sign Reading Time Taken Comments Blood Pressure 129/63 12/27/2024 12:00 PM EDT Pulse 82 12/27/2024 12:00 PM EDT Temperature 37.1 C (98.7 F) 12/27/2024 11:25 AM EDT Respiratory Rate 20 12/27/2024 12:0 0 PM EDT Oxygen Saturation 97% 12/27/2024 12: 00 PM EDT Inhaled Oxygen Concentration - - Weight 81.6 kg (179 lb 14.3 oz) 12/27/2024 8:20 AM EDT Height 165.1 cm (5' 5 ) 12/27/2024 8:20 AM EDT Body Mass Index 29.94 12/27/2024 8:20 AM EDT documented in this encounter Functional Status * Calculated C-SSRS Risk Score (Lifetime/Recent) Answer Date of Assessment Author No Risk Indicated 12/11/2024 11:36 AM EDT Fabien Ramosx R * Question Answer Date of Assessment Author 1. Wish to be (Past 1 Month) No 025 11:36 AM EDT Frederic Kleinenix R 2. Non-Specific Active Suici rhael Thoughts (Past 1 Month) No 12/11/2024 11:36 AM EDT Martha Klein oenix R 6. Suicidal Behavior (Lifetime) No 5 11:36 AM EDT Fabien Kleinx R documented as of this encounter Discharge Instructions * Discharge Instructions* Kaleb Bond, CLAIMS COLLECTOR - 12/27/2024 9:21 AM EDT TAVR Discharge [...] and contact the [facility] at [phone]. If after hours, call [phone]. For emergencies, call [phone]. Follow up: You will have an echocardiogram and follow-up with the Structural Team in 1 month. If you have not received a follow up appointment at the time of discharge, they will be in contact with you in the next few days via phone or mail reminder. If you do not hear from someone within 3-5 days, call the [facility] at [phone] for more information. Please call Dylon Pope RN, with any other questions. Medication Instructions: Antibiotics are required prior to all dental visits. Take Medication exactly as instructed in your discharge packet Do not take any medications that have not been ordered for you. This means do not take other people's medication, illegal drugs or substances. The following information is obtained directly from the [place] [employer]. https://www.heart.org/en/health-topics/infective-endocarditis What is Infective Endocarditis? [...] referral to closest facility to her home, [facility]. [facility] will contact Ms. Lynn to discuss and [...] 2. Eligibility: Heart valve surgery 3. Exceptions/exclusions: [facility] Cardiac Rehab Exclusions: None 4. Referral: [facility] Cardiac Rehab Referral: Patient will consider participating in a cardiac rehabilitation program. Patient was provided with contact information for the following program(s) for consideration: [facility] [phone]. 5. Information sent: Information Sent: Appropriate information will be sent to the receiving cardiac rehabilitation program.: * Denise Duarte - Shravan Ivory RN - 12/28/2024 12:16 PM EDT Images from the original note were not included. [id number] After Heart Valve Surgery For the first [...] headache Last Reviewed Date: 2023 00:00:00 ?? [phone] The [employer]. All rights reserved. This information is not intended as a substitute for professional medical care. Always follow your healthcare professional's instructions. * Denise Duarte - Shravan Ivory RN - 12/28/2024 12:16 PM EDT Images from the original note were not included. [id number] Understanding Transcatheter Aortic Valve Replacement (TAVR) Transcatheter [...] program. Last Reviewed Date: 2024 00:00:00 ?? [id number] [employer]. All rights reserved. This information is not [...] PCP name and Address: Wan Santoro MD [address] [place] [address] [address] / [place] [address] Referring provider name and address: No referring [...] extracted and entered into the NCDR Clinical Registry/[facility] Research as required by the National Coverage Decision.? NCT Identifier [id number]. 12/27/2024 S/P TAVR with 23 mm Maria D [address] Brian Flores MD ([facility]). 12/28/2024 Subjective: Awake and alert. NAD. VSS. No complaints of chest pain, SOA, N/V, diaphoresis, or palpitations. quality assurance monitor body showing SR without ectopy. Groin sites without [...] Ultra prosthesis per Dr. Brian Flores MD ([facility]). - Routine pre and post-op care. [...] Ultra prosthesis per Dr. Brian Flores MD ([facility]). Interpretation Successful transfemoral transcatheter aortic valve [...] was obtained: 1) Right common femoral vein: 8-Solomon Islander short Terumo sheath 2) Right common femoral artery: 6-Sol[place] Islander short Terumo sheath 3) Left common femoral artery: 7-[place] Islander short Terumo sheath The 6-Sol[place] Islander right common femoral arterial sheath was upsized to an 8-[place] Islander sheath after 2 Preclose sutures were deployed. Heparin was given for a goal ACT>250. Antibiotics were given. The 8-[place] Islander right femoral arterial sheath was upsized to the 14-Sol[place] Islander Zavala sheath over a Safari wire. A temporary pacemaker wire was advanced from the venous sheath to the right ventricular apex. Thresholds were tested and confirmed to be adequate. A 6-[place] Islander angled pigtail catheter was inserted from the left common femoral arterial sheath to theright coronary cusp. An aortogram was performed to confirm the correct coplanar angle. The aortic valve was crossed from the E-sheath using an exchange-length J-tip wire and a 6-FrenchAL1 diagnostic catheter. The AL1 catheter was removed and a 6-Sol[place] Islander angled pigtail catheter was advanced over the [...] Maria D 3 Ultra Tavr 23mm - [id number] - [id number] - Implanted Inventory item: VALVE KIT MARIA D 3 ULTRA TAVR 23MM Model/Cat number: [id number] Serial number: [id number] Target Worker: [id number] Lot number: [id number] As of 12/27/2024 Status: Implanted Discharge Diagnosis [...] - 1.1 mg/dL POCT eGFR 61 mL/min/1.73m*2 Head Packager ID Nela Perez Martin Device ID [id number] Comment Echo, Adult Transthoracic (TTE) Limited Collection [...] Rate 78 BPM Atrial Rate 78 BPM MN Interval 162 ms QRSD Interval 102 ms QT Interval 428 ms QTC Interval 487 ms P Notrees 36 degrees R Notrees 14 degrees T Wave Notrees -39 degrees Diagnosis Normal sinus rhythm Diagnosis [...] Rate 85 BPM Atrial Rate 85 BPM MN Interval 150 ms QRSD Interval 90 ms QT Interval 386 ms QTC Interval 459 ms P Notrees -1 degrees R Notrees -36 degrees T Wave Notrees 20 degrees Diagnosis Normal sinus rhythm Diagnosis [...] and contact the [facility] at [phone]. If after hours, call [phone]. For emergencies, call 911. Follow up: You will have an echocardiogram and follow-up with the Structural Team in 1 month. If you have not received a follow up appointment at the time of discharge, they will be in contact with you in the next few days via phone or mail reminder. If you do not hear from someone within 3-5 days, call the [facility] at [phone] for more information. Please call Dylon Pope RN, with any other questions. Medication Instructions: Antibiotics are required prior to all dental visits. Take Medication exactly as instructed in your discharge packet Do not take any medications that have not been ordered for you. This means do not take other people's medication, illegal drugs or substances. The following information is obtained directly from the [employer] [employer]. https://www.heart.org/en/health-topics/infective-endocarditis What is Infective Endocarditis? [...] [facility] 04/02/2025 10:30 AM THEODORE MR 2 MRICHG [facility] 04/02/2025 1:15 PM LORI Law 04/02/2025 1:40 PM Rudolph Dillard MD [facility] Discharge Disposition/Condition Disposition: Home Condition: Stable (s/sx potential problems absent or manageable) I spent > 30min working on this discharge including performing physical examination, review of laboratory/imaging results with the patient, discussion of medication management, and preparation of discharge paperwork. Kaleb PRERNA Bond [phone] Cosigned by Brian Flores MD at 12/28/2024 [...] Operative note TAVR : Date: 12/27/2024 Location: [place] OR Name: Priya Lynn, : 1955, Pre-operative Diagnosis: Problem List[1] Post-operative Diagnosis: Problem List[2] Surgeons: This procedure was performed jointly by Cardiothoracic Surgery physicians and Interventional Cardiology. The primary Cardiothoracic Surgery hyster machine operator was Dr. Gladys Lopez. The primary Interventional Cardiology hyster machine operator was Dr Brian Cates Operation: [...] right femoral artery, then we crossed the [place] aortic valve with J-wire exchanged over pigtail [...] was advanced to the level of the [place] aortic valve and positioned so that the [...] Transcatheter Aortic Valve Replacement, according to the [facility] National Coverage Decision.?Case data will be extracted and entered into the [facility] Clinical [facility] Research as required by the National Coverage Decision.? NCT Identifier [id number]. Cardiac Diagnostics: Echo - 10/03/2024: LVEF 55%. [...] file Social Connections: Unknown (04/23/2023) Received from [facility] Family and Community Support Help with Day-to-Day Activities: Not on file Lonely or Isolated: Not on file Intimate Partner Violence: Unknown (04/23/2023) Received from [facility] Abuse Screen Unsafe at Home or Work/School: Not on file Feels Threatened by Someone?: Not on file Does Anyone Keep You from Contacting Others or Doint Things Outside the Home?: Not on file Physical Sign of Abuse Present: Not on file Housing Stability: Unknown (04/23/2023) Received from [facility] Housing Stability Current Living Arrangements: [...] Transcatheter Aortic Valve Replacement, according to the [facility] National Coverage Decision.?Case data will be extracted and entered into the [facility] Clinical Registry/[facility] Research as required by the National Coverage Decision.? NCT Identifier [id number]. 12/27/2024 S/P TAVR with 23 mm Maria D [address] Brian Flores MD ([facility]). Cardiac Diagnostics: Echo - 10/03/2024: LVEF [...] Ultra prosthesis per Dr. Brian Flores MD ([facility]). - Routine pre and post-op care. [...] Encounter [facility] Operating Room [address] [place] [address] Abdelrahman Betancur MD [address] [place] [phone] 02/11/2025 1:05 PM EDT Anesthesia Event [facility] Operating Room [address] [place] [phone] Evelyn Julian, CLAIMS COLLECTOR [address] [facility] [address] [place] [address] 02/11/2025 1:05 PM EDT - 02/11/2025 3:30 PM EDT Surgery [facility] Operating Room [address] [place] [address] Abdelrahman Betancur MD [address] [place] [address] ARTHROPLASTY, HIP, TOTAL, ANTERIOR APPROACH [91766 (CPT )] 02/26/2025 11:20 AM EDT Office Visit Medical [facility] [address] [place] [address] Renetta Stoner PA [address] [place] [address] 03/06/2025 10:00 AM EDT Appointment Medical Office Building Cardiac Diagnostic Testing Medical Office Building Echo Lab [address] [place] [address] 03/06/2025 11:30 AM EDT Office Visit [facility] [place] [address] [facility], [address] [place] [address] Dian Yancey PA [address] [place] [address] 03/26/2025 11:10 AM EDT Office Visit Medical Office Building [facility] [address] [facility], [address] [place] [address] Abdelrahman Betancur MD [address] [facility] [address] [place] [address] 04/02/2025 9:40 AM EDT Appointment [facility] Radiology [address] [place] [address] 04/02/2025 10:30 AM EDT Appointment [facility] [address] [place] [address] 04/02/2025 1:15 PM EDT Clinical Support [facility] [address] [facility]nd [place] [address] 04/02/2025 1:40 PM EDT Office Visit [facility] [address] [facility]nd [place] [address] Rudolph Dillard MD [address] [facility] [address] [place] [address] 04/08/2025 7:30 AM EDT Hospital Encounter [facility] Operating Room [address] [place] [address] Abdelrahman Betancur MD [address] [facility] [address] [place] [address] 04/08/2025 7:30 AM EDT - 04/08/2025 10:15 AM EDT Surgery [facility] Operating Room [address] [place] [address] Abdelrahman Betancur MD [address] [place] [address] ARTHROPLASTY, HIP, TOTAL, ANTERIOR APPROACH [81915 (CPT )] 04/23/2025 11:00 AM EDT Office Visit Medical Office Building [facility] [address] [facility], [address] [place] [address] Renetta Stoner PA [address] [place] [address] 05/21/2025 11:10 AM EST Office Visit Medical Office Building [facility] [address] [facility], [address] [place] [address] Abdelrahman Betancur MD [address] [facility] [address] [place] [address] 01/08/2026 2:00 PM EDT Appointment Medical Office Building Cardiac Diagnostic Testing Medical Office Building Echo Lab [address] [facility], [address] [place] [address] 01/08/2026 3:00 PM EDT Office Visit [facility] [place] [address] [facility], [address] [place] [address] Dian Yancey PA [address] [place] [address] Scheduled Procedures Name Priority Associated Diagnoses [...] until 12/28/2025 documented as of this encounter Procedures Procedure [...] - 2.4 mg/dL 12/28/2024 5:33 AM EDT [facility] Blood Venous blood specimen / Unknown Venipuncture / Unknown 12/28/2024 4:56 AM EDT 12/28/2024 5:02 AM EDT Kaleb Bond APRN LAB BLOOD ORDERABLES Final Result [facility] [address] [place] [address] * Basic metabolic panel (12/28/2024 4:56 AM EDT) Glucose, Plasma 99 74 - 99 mg/dL 12/28/2024 5:33 AM EDT [facility] BUN, Plasma 20 8 - 23 mg/dL 12/28/2024 5:33 AM EDT [facility] Creatinine, Plasma 0.83 0.60 - 1.10 mg/dL 12/28/2024 5:33 AM EDT [facility] BUN/Creatinine Ratio 24 12/28/2024 5:33 AM EDT [facility] Sodium, Plasma 140 136 - 145 mmol/L 12/28/2024 5:33 AM EDT [facility] Potassium, Plasma 4.1 3.6 - 4.9 mmol/L 12/28/2024 5:33 AM EDT [facility] Chloride, Plasma 106 97 - 107 mmol/L 12/28/2024 5:33 AM EDT [facility] CO2, Plasma 23 22 - 29 mmol/L 12/28/2024 5:33 AM EDT [facility] Anion Gap 11 6 - 16 mmol/L 12/28/2024 5:33 AM EDT [facility] Total Calcium, Plasma 8.9 8.9 - 10.2 mg/dL 12/28/2024 5:33 AM EDT [facility] eGFRcr 75.9 mL/min/1.7 3m*2 12/28/2024 5:33 AM EDT [facility] Comment:Reported eGFRcr in m L/min/1.73m2 is based the CKD-EPI 2020 equation that does not use a race coefficient. Blood Venous blood specimen / Unknown Venipuncture / Unknown 12/28/2024 4:56 AM EDT 12/28/2024 5:02 AM EDT Kaleb Bond APRN LAB BLOOD ORDERABLES Final Result [facility] [address] [place] [address] * (ABNORMAL) CBC (12/28/2024 4:56 AM EDT) WBC Count 8.36 3.70 - 10.30 10*3/uL LAB HEMATOLOGY METHOD 12/28/2024 5:15 AM EDT [facility] RBC Count 3.29(L) 3.90 - 5.20 10*6/uL LAB HEMATOLOGY METHOD 12/28/2024 5:15 AM EDT [facility] HGB 10.0(L) 11.2 - 15.7 g/dL LAB HEMATOLOGY METHOD 12/28/2024 5:15 AM EDT [facility] HCT 30.3(L) 34.0 - 45.0 % LAB HEMATOLOGY METHOD 12/28/2024 5:15 AM EDT [facility] Platelet Count 122(L) 155 - 369 10*3/uL LAB HEMATOLOGY METHOD 12/28/2024 5:15 AM EDT [facility] MCV 92 79 - 98 fL LAB HEMATOLOGY METHOD 12/28/2024 5:15 AM EDT [facility] MCH 30.4 26.0 - 32.0 pg LAB HEMATOLOGY METHOD 12/28/2024 5:15 AM EDT [facility] MCHC 33.0 30.7 - 35.5 g/dL LAB HEMATOLOGY METHOD 12/28/2024 5:15 AM EDT [facility] RDW 13.5 11.5 - 14.5 % LAB HEMATOLOGY METHOD 12/28/2024 5:15 AM EDT [facility] MPV 10.8 8.8 - 12.5 fL LAB HEMATOLOGY METHOD 12/28/2024 5:15 AM EDT [facility] nRBC 0.0 <=0.0 per 100 WBCs LAB HEMATOLOGY METHOD 12/28/2024 5:15 AM EDT [facility] Blood Venous blood specimen / Unknown Venipuncture / Unknown 12/28/2024 4:56 AM EDT 12/28/2024 5:03 AM EDT Kaleb Bond APRN LAB BLOOD ORDERABLES Final Result Performing Organization Address City/[facility] Co de Phone Number [facility] [address] [place] [address] * ECG Adult - POD#1 (12/28/2024 2:41 AM EDT) EKG DIAGNOSIS CLASS Abnormal MUSE ECG Ventricular Rate 85 BPM MUSE ECG Atrial Rate 85 BPM MUSE ECG MN Interval 150 ms MUSE ECG QRSD Interval 90 ms MUSE ECG QT Interval 386 ms MUSE ECG QTC Interval 459 ms MUSE ECG P Notrees -1 degrees MUSE ECG R Notrees -36 degrees MUSE ECG T Wave Notrees 20 degrees MUSE ECG Diagnosis Normal sinus rhythm MUSE ECG Diagnosis Left axis deviation MUSE ECG Diagnosis Anteroseptal infarct , age undetermined MUSE ECG Diagnosis MUSE ECG Diagnosis MUSE ECG Diagnosis Confirmed by Bret Yepez ([id number]) on 12/28/2024 5:35:03 PM MUSE ECG 12/28/2024 2:41 AM EDT 12/28/2024 5:35 PM EDT Kaleb Bond APRN ECG ORDERABLES Final Resul t Performing Organization Address [facility] Co de Phone Number MUSE ECG * XR Chest 1 View (12/28/2024 2:41 AM EDT) Anatomical Region Laterality Modality Chest Digital Radiogra phy Impressions 12/28/2024 8:08 AM EDT Postprocedure changes without focal consolidation or pneumothorax. CRITICAL RESULT: No. COMMUNICATION: Per this written report. Drafted by Klye Nelson MD on 12/28/2024 8:07 AM Final [...] MD on 12/28/2024 8:08 AM Kaleb Bond CLAIMS COLLECTOR IMG XR PROCEDURES Final Res ult * (ABNORMAL) Basic metabolic panel (12/27/2024 1:09 PM EDT) Glucose, Plasma 92 74 - 99 mg/dL 12/27/2024 2:24 PM EDT [facility] BUN, Plasma 22 8 - 23 mg/dL 12/27/2024 2:24 PM EDT [facility] Creatinine, Plasma 0.83 0.60 - 1.10 mg/dL 12/27/2024 2:24 PM EDT [facility] BUN/Creatinine Ratio 27 12/27/2024 2:24 PM EDT [facility] Sodium, Plasma 141 136 - 145 mmol/L 12/27/2024 2:24 PM EDT [facility] Potassium, Plasma 3.2(L) 3.6 - 4.9 mmol/L 12/27/2024 2:24 PM EDT [facility] Chloride, Plasma 107 97 - 107 mmol/L 12/27/2024 2:24 PM EDT [facility] CO2, Plasma 22 22 - 29 mmol/L 12/27/2024 2:24 PM EDT [facility] Anion Gap 12 6 - 16 mmol/L 12/27/2024 2:24 PM EDT [facility] Total Calcium, Plasma 8.9 8.9 - 10.2 mg/dL 12/27/2024 2:24 PM EDT [facility] eGFRcr 75.9 mL/min/1.7 3m*2 12/27/2024 2:24 PM EDT [facility] Comment:Reported eGFRcr in m L/min/1.73m2 is based the CKD-EPI 2020 equation that does not use a race coefficient. Blood Venous blood specimen / Unknown Venipuncture / Unknown 12/27/2024 1:09 PM EDT 12/27/2024 1:45 PM EDT Kaleb Bond APRN LAB BLOOD ORDERABLES Final Result [facility] [address] [place] [address] * (ABNORMAL) CBC (12/27/2024 1:09 PM EDT) WBC Count 9.03 3.70 - 10.30 10*3/uL LAB HEMATOLOGY METHOD 12/27/2024 1:53 PM EDT [facility] RBC Count 3.45(L) 3.90 - 5.20 10*6/uL LAB HEMATOLOGY METHOD 12/27/2024 1:53 PM EDT [facility] HGB 10.4(L) 11.2 - 15.7 g/dL LAB HEMATOLOGY METHOD 12/27/2024 1:53 PM EDT [facility] HCT 31.5(L) 34.0 - 45.0 % LAB HEMATOLOGY METHOD 12/27/2024 1:53 PM EDT [facility] Platelet Count 143(L) 155 - 369 10*3/uL LAB HEMATOLOGY METHOD 12/27/2024 1:53 PM EDT [facility] MCV 91 79 - 98 fL LAB HEMATOLOGY METHOD 12/27/2024 1:53 PM EDT [facility] MCH 30.1 26.0 - 32.0 pg LAB HEMATOLOGY METHOD 12/27/2024 1:53 PM EDT [facility] MCHC 33.0 30.7 - 35.5 g/dL LAB HEMATOLOGY METHOD 12/27/2024 1:53 PM EDT [facility] RDW 13.6 11.5 - 14.5 % LAB HEMATOLOGY METHOD 12/27/2024 1:53 PM EDT [facility] MPV 11.1 8.8 - 12.5 fL LAB HEMATOLOGY METHOD 12/27/2024 1:53 PM EDT [facility] nRBC 0.0 <=0.0 per 100 WBCs LAB HEMATOLOGY METHOD 12/27/2024 1:53 PM EDT [facility] Blood Venous blood specimen / Unknown Venipuncture / Unknown 12/27/2024 1:09 PM EDT 12/27/2024 1:41 PM EDT us Kaleb Bond APRN LAB BLOOD ORDERABLES Final Result [facility] [address] [place] [address] * ECG Adult (12/27/2024 11:49 AM EDT) EKG DIAGNOSIS CLASS Abnormal MUSE ECG Ventricular Rate 78 BPM MUSE ECG Atrial Rate 78 BPM MUSE ECG MN Interval 162 ms MUSE ECG QRSD Interval 102 ms MUSE ECG QT Interval 428 ms MUSE ECG QTC Interval 487 ms MUSE ECG P Notrees 36 degrees MUSE ECG R Notrees 14 degrees MUSE ECG T Wave Notrees -39 degrees MUSE ECG Diagnosis Normal sinus rhythm MUSE ECG Diagnosis Anteroseptal infarct , age undetermined MUSE ECG Diagnosis T wave abnormality, consider inferior ischemia MUSE ECG Diagnosis Long QTc MUSE ECG Diagnosis Abnormal ECG MUSE ECG Diagnosis MUSE ECG Diagnosis Confirmed by Doe Lion ([id number]) on 12/27/2024 2:49:27 PM MUSE ECG 12/27/2024 11:4 9 AM EDT 12/27/2024 2:49 PM EDT us Dat Dickson CLAIMS COLLECTOR ECG ORDERABLES Final Resu lt MUSE ECG [...] is no recent study available for direct [id number] comparison. Left Ventricle The left ventricle is [...] is no recent study available for direct nbja-[id number]-visv comparison. us Brian Flores MD CV ECHO [...] was obtained: 1) Right common femoral vein: 8-Solomon Islander short Terumo sheath 2) Right common femoral artery: 6-[place] Islander short Terumo sheath 3) Left common femoral artery: 7-[place] Islander short Terumo sheath The 6-Sol[place] Islander right common femoral arterial sheath was upsized to an 8-Solomon Islander sheath after 2 Preclose sutures were deployed. Heparin was given for a goal ACT>250. Antibiotics were given. The 8-Solomon Islander right femoral arterial sheath was upsized to the 14-Solomon Islander [place]ala sheath over a Safari wire. A temporary pacemaker wire was advanced from the venous sheath to the right ventricular apex. Thresholds were tested and confirmed to be adequate. A 6-Solomon Islander angled pigtail catheter was inserted from the left common femoral arterial sheath to the right coronary cusp. An aortogram was performed to confirm the correct coplanar angle. The aortic valve was crossed from the E-sheath using an exchange-length J-tip wire and a 6-Solomon Islander AL1 diagnostic catheter. The AL1 catheter was removed and a 6- [place] Islander angled pigtail catheter was advanced over the [...] * POCT ACT (12/27/2024 10:32 AM EDT) [facility] ACT (Low Range) 336 65 - 400 seconds 01/21/2025 9:15 AM EDT [facility] Head Packager ID Bertha Franz 01/21/2025 9:15 AM EDT [facility] ACT Device ID [id number] 01/21/2025 9:15 AM EDT [facility] Comment 01/21/2025 9:15 AM EDT [facility] Comment: ACT performed by staff [...] UNSOLICITED RESULTS Final Result [facility]ALTH[facility]ARE LAB [address] LAB 800 [place] [address] * POCT creatinine (12/27/2024 8:29 AM EDT) Pathologist [facility] Creatinine, Point of Care 1.0 0.6 - 1.1 mg/dL 12/27/2024 8:33 AM EDT HEALTHCARE LAB POCT eGFR 61 mL/min/1. 73m*2 12/27/2024 8:33 AM EDT HEALTHCARE LAB Head Packager ID Nela Perez A 12/27/2024 8:33 AM EDT HEALTHCARE LAB Device ID [id number] 12/27/2024 8:33 AM EDT [facility]ALTH[facility]ARE LAB Comment 12/27/2024 8:33 AM EDT [facility] Comment:Testing performed on i-STAT at the point of care. Reported eGFRcr in mL/min/1.73m2 is based the CKD-EPI 2020 equation that does not use a race coefficient. Blood Venous blood specimen / Unknown 12/27/2024 8:29 AM EDT 12/27/2024 8:33 AM EDT Brian Flores MD LAB POINT OF CARE TEST DOCKED DEVICE UNSOLICITED RESULTS Final Result [facility] [address] LAB 800 [place] [address] * Type and Screen (12/27/2024 8:24 AM [...] TEST ORDERABLES Final Result Performing Organization Address City/[facility]/ZIP Co de Phone Number BLOOD BANK 800 [place] [address], * N-Terminal Probnp (12/27/2024 8:24 AM EDT) N-Terminal, PROBNP, Plasma 348 0 - 899 pg/mL 12/27/2024 9:14 AM EDT [facility] Blood Venous blood specimen / Unknown Venipuncture / Unknown 12/27/2024 8:24 AM EDT 12/27/2024 8:34 AM EDT Dat Dickson APRN LAB BLOOD ORDERABLES Final Result [facility] [address] [place] [address] * (ABNORMAL) Basic metabolic panel (12/27/2024 8:24 AM EDT) Glucose, Plasma 94 74 - 99 mg/dL 12/27/2024 9:14 AM EDT [facility] BUN, Plasma 24(H) 8 - 23 mg/dL 12/27/2024 9:14 AM EDT [facility] Creatinine, Plasma 0.91 0.60 - 1.10 mg/dL 12/27/2024 9:14 AM EDT [facility] BUN/Creatinine Ratio 26 12/27/2024 9:14 AM EDT [facility] Sodium, Plasma 143 136 - 145 mmol/L 12/27/2024 9:14 AM EDT [facility] Potassium, Plasma 3.5(L) 3.6 - 4.9 mmol/L 12/27/2024 9:14 AM EDT [facility] Chloride, Plasma 106 97 - 107 mmol/L 12/27/2024 9:14 AM EDT [facility] CO2, Plasma 23 22 - 29 mmol/L 12/27/2024 9:14 AM EDT [facility] Anion Gap 14 6 - 16 mmol/L 12/27/2024 9:14 AM EDT [facility] Total Calcium, Plasma 9.5 8.9 - 10.2 mg/dL 12/27/2024 9:14 AM EDT [facility] eGFRcr 68.0 mL/min/1.7 3m*2 12/27/2024 9:14 AM EDT [facility] Comment:Reported eGFRcr in m L/min/1.73m2 is based the CKD-EPI 2020 equation that does not use a race coefficient. Blood Venous blood specimen / Unknown Venipuncture / Unknown 12/27/2024 8:24 AM EDT 12/27/2024 8:34 AM EDT Dat Dickson APRN LAB BLOOD ORDERABLES Final Result [facility] [address] [place] [address] * Hemogram (CBC) (12/27/2024 8:24 AM EDT) WBC Count 7.04 3.70 - 10.30 10*3/uL LAB HEMATOLOGY METHOD 12/27/2024 8:52 AM EDT [facility] RBC Count 3.90 3.90 - 5.20 10*6/uL LAB HEMATOLOGY METHOD 12/27/2024 8:52 AM EDT [facility] HGB 11.8 11.2 - 15.7 g/dL LAB HEMATOLOGY METHOD 12/27/2024 8:52 AM EDT [facility] HCT 35.4 34.0 - 45.0 % LAB HEMATOLOGY METHOD 12/27/2024 8:52 AM EDT [facility] Platelet Count 170 155 - 369 10*3/uL LAB HEMATOLOGY METHOD 12/27/2024 8:52 AM EDT [facility] MCV 91 79 - 98 fL LAB HEMATOLOGY METHOD 12/27/2024 8:52 AM EDT [facility] MCH 30.3 26.0 - 32.0 pg LAB HEMATOLOGY METHOD 12/27/2024 8:52 AM EDT [facility] MCHC 33.3 30.7 - 35.5 g/dL LAB HEMATOLOGY METHOD 12/27/2024 8:52 AM EDT [facility] RDW 13.5 11.5 - 14.5 % LAB HEMATOLOGY METHOD 12/27/2024 8:52 AM EDT [facility] MPV 10.9 8.8 - 12.5 fL LAB HEMATOLOGY METHOD 12/27/2024 8:52 AM EDT [facility] nRBC 0.0 <=0.0 per 100 WBCs LAB HEMATOLOGY METHOD 12/27/2024 8:52 AM EDT [facility] Blood Venous blood specimen / Unknown Venipuncture / Unknown 12/27/2024 8:24 AM EDT 12/27/2024 8:33 AM EDT Dat Dickson CLAIMS COLLECTOR LAB BLOOD ORDERABLES Final Result [facility] [address] [place] [address] documented in this encounter Visit Diagnoses Diagnosis Nonrheumatic aortic valve stenosis- Primary Nonrheumatic aortic valve stenosis S/P TAVR (transcatheter aortic valve replacement) Nonrheumatic aortic valve stenosis Arthritis of left hip Arthritis of right hip documented in this encounter Admitting Diagnoses Diagnosis Nonrheumatic aortic valve stenosis documented in this encounter Administered Medications Inactive Administered Medications - up to 3 most recent administrations Medication Order MAR Action Action Date Dose Rate Site acetaminophen (Tylenol) tablet 650 mg 650 mg, [...] Given 12/28/2024 8:09 AM EDT 81 mg hydroCHLOROthiazide (HYDRODiuril) tablet 25 mg 25 mg, Oral, Daily, First dose on Tue12/28/24 at 0900, Until Discontinued, Routine Given 12/28/2024 8:09 AM EDT 25 mg iodixanol (VISIPaque) 320 MG/ML injection As needed, Starting on Tue12/27/24 at 1059, Until Tue12/27/24 at 1122, Routine, Intraprocedure Given 12/27/2024 10:59 AM EDT 80 mL lidocaine (Xylocaine) 2 % injection As needed, Starting on Tue12/27/24 at 1021, Until Tue12/27/24 at 1122, Routine, Intraprocedure Given 12/27/2024 10:24 AM EDT 10 mL Left Femoral Given 12/27/2024 10:21 AM EDT 10 mL R ight Femoral lisinopril tablet 40 mg 40 mg, Oral, Daily, First dose on Tue12/28/24 at 0900, Until Discontinued, Routine Given 12/28/2024 8:09 AM EDT 40 mg meloxicam (Mobic) tablet 15 mg 15 mg, Oral, Daily with dinner, First dose on Tue12/27/24 at 1800, Until Discontinued, Routine Given 12/27/2024 [...] Given 12/28/2024 8:09 AM EDT 10 mEq documented in this encounter Active and Recently [...] Zenia 12/27/24 at 0900, Routine, Anesthesia Intraprocedure 0928 (Given [...] Zenia 12/27/24 at 1800, Until Discontinued, Routine 1855 (Given - Provider: Randa Fraga RN) potassium chloride CR (Klor-Con) ER tablet 10 mEq 10 mEq, Oral, Daily, First dose on Tue12/28/24 at 0900, Until Discontinued, Routine 08 (Given - Provid er: Shravan Ivory, RN) potassium chloride CR (Klor-Con) ER tablet 40 mEq (COMPLETED) 40 mEq, Oral, Every 4 hours, 2 doses, First dose on Zenia 12/27/24 at 1700, Last dose on Zenia 12/27/24 at 2100, Routine 175 (Given - Provider: Randa Fraga, RN)2036 (Given [...] documented as of this encounter Care Teams Chief Medical Director Relationship Specialty Start Date End Date Wan Santoro MD [address] [place] [address] PCP - General 01/20/21 Dalton Hurley MD [address] [place] [address] Consulting Physician Radiation Therapy 03/27/21 Geovanny Dominguez MD [address] [place] [address] Surgeon Neurosurgery 05/21/21 Rudolph Dillard MD [address] [address] Consulting Physician Medical Oncology 09/22/21 Abdiel Vargas APRN 800 [facility] [address] [place] [address] Nurse Practitioner Internal Medicine 04/09/22 Rodney Maria MD [address] [place] [address] Referring Physician 11/14/24 Brian Flores MD 800 [place] [phone] Consulting Physician Cardiology 11/14/24 documented as of this encounter
--- OUTSIDE RECORDS SUMMARY | 2025-01-23 15:30 | XMS_ITS | Encounter Summary ---
Author Organization [facility] Address [address] [place] [address] Care Team Providers Care Coil Cutter Name Role Phone Wan Santoro MD Primary Care Provider Dalton Hurley MD Unavailable [phone] Geovanny Dominguez MD Unavailable [phone] Rudolph Dillard MD Unavailable Abdiel Vargas APRN Unavailable [phone] Rodney Maria MD Unavailable [phone] Brian Flores MD Unavailable [phone] Encounter Details Date Type Department Care Team (Late st Contact Info) Description 01/23/2025 3:30 PM EDT Pre-Admission Testing [facility] Anesthesia [address] [place] [address] Anesthesia Record Procedure Summary Procedure Name Responsible Anesthesiologist Anesthesia Start Time Anesthesia Stop Time ARTHROPLASTY, HIP, TOTAL, ANTERIOR APPROACH (Left: Hip) Events No events on file. Meds * Agents No agents on file. * Blood No blood administrations on file. Lines, Drains, and Airways No LDAs on file. documented in this encounter Social History Tobacco [...] Miscellaneous Notes * PAT Evaluation Note - Evelyn Julian, STRAND FORMING MACHINE OPERATOR - 01/23/2025 3:30 PM EDT HPI Priya Lynn is a 69 y.o. female who presents with Pre-op Diagnosis * Arthritis of left hip [M16.12] now scheduled for ARTHROPLASTY, HIP, TOTAL, ANTERIOR APPROACH (Left) with Abdelrahman Betancur MD on 02/11/2025 at [facility]. Past Medical History[1] Family History[2] Social History[3] [...] CAD, CHF, dyspnea, dysrhythmias, hyperlipidemia, pacemaker, past [place] or syncope. hypertension: Exercise tolerance is 1 [...] [facility] Operating Room [address] [place] [address] Abdelrahman Betancur MD [address] [facility] [address] [place] [address] 02/11/2025 1:05 PM EDT Anesthesia Event [facility] Operating Room [address] [place] [address] Evelyn Julian APRN [address] [facility] [address] [place] [phone] 02/11/2025 1:05 PM EDT - 02/11/2025 3:30 PM EDT Surgery [facility] Operating Room [address] [place] [address] Abdelrahman Betancur MD [address] [facility] [address] [place] [address] ARTHROPLASTY, HIP, TOTAL, ANTERIOR APPROACH [[id number] (CPT )] 02/26/2025 11:20 AM EDT Office Visit Medical Office Building [facility] [address] [facility], [address] [place] [address] Renetta Stoner PA [address] [place] [address] 03/06/2025 10:00 AM EDT Appointment Medical Office Building Cardiac Diagnostic Testing Medical Office Building Echo Lab [address] [facility], [address] [place] [address] 03/06/2025 11:30 AM EDT Office Visit [facility] [place] [address] [facility], [address] [place] [address] Dian Yancey PA [address] [place] [address] 03/26/2025 11:10 AM EDT Office Visit Medical Office Building [facility] [address] [facility], [address] [place] [address] Abdelrahman Betancur MD [address] [facility] [address] [place] [address] 04/02/2025 9:40 AM EDT Appointment [facility] Radiology [address] [place] [address] 04/02/2025 10:30 AM EDT Appointment [facility] [address] [place] [address] 04/02/2025 1:15 PM EDT Clinical Support [facility] [address] [facility], [address]nd [place] [address] 04/02/2025 1:40 PM EDT Office Visit [facility] [address] [facility], [address]nd [place] [address] Rudolph Dillard MD [address] [address] 04/08/2025 7:30 AM EDT Hospital Encounter [facility] Operating Room [address] [place] [address] Abdelrahman Betancur MD [address] [place] [address] 04/08/2025 7:30 AM EDT - 04/08/2025 10:15 AM EDT Surgery [facility] Operating Room [address] [place] [address] Abdelrahman Betancur MD [address] [place] [address] ARTHROPLASTY, HIP, TOTAL, ANTERIOR APPROACH [[id number] (CPT )] 04/23/2025 11:00 AM EDT Office Visit Medical Office Building [facility] [address], [address] [place] [address] Renetta Stoner PA [address] [place] [address] 05/21/2025 11:10 AM EST Office Visit Medical Office Building [facility] [address] [place] [address] Abdelrahman Betancur MD [address] [place] [address] 01/08/2026 2:00 PM EDT Appointment Medical Office Building Cardiac Diagnostic Testing Medical Office Building Echo Lab [address], [address] [place] [address] 01/08/2026 3:00 PM EDT Office Visit [facility] [place] [address] [place] [address] Dian Yancey PA [address] [place] [address] Scheduled Procedures Name Priority Associated Diagnoses Date/Ti me ARTHROPLASTY, HIP, TOTAL, ANTERIOR APPROACH Arthritis of left hip 02/11/2025 1:05 PM EDT ARTHROPLASTY, HIP, TOTAL, ANTERIOR APPROACH Arthritis of right hip 04/08/2025 7:30 AM EDT documented as of this encounter Goals Goal Patient Goal Type Associated Problems Recent Progress Patient-Stated? Author Autogenerat ed Goal Care Plan Autogenerated Problem No HrivLatisha kearney Autogenerat ed Goal Care Plan Autogenerated Problem No HrLatisha noble documented as of this encounter Visit Diagnoses [...] documented as of this encounter Care Teams Coil Cutter Relationship Specialty Start Date End Date Wan Santoro MD [address] [place] [address] PCP - General 01/20/21 Dalton Hurley MD 800 [facility] [address] [place] [address] Consulting Physician Radiation Therapy 03/27/21 Geovanny Dominguez MD [address] [facility] [address] [place] [address] Surgeon Neurosurgery 05/21/21 Rudolph Dillard MD [address] [address] Consulting Physician Medical Oncology 09/22/21 Abdiel Vargas APRN 800 [facility] [address] [place] [address] Nurse Practitioner Internal Medicine 04/09/22 Rodney Maria MD [address] [place] [address] Referring Physician 11/14/24 Brian Flores MD [address] [place] [address] Consulting Physician Cardiology 11/14/24 documented as of this encounter
--- OUTSIDE RECORDS SUMMARY | 2025-02-01 11:17 | XMS_ITS | Encounter Summary ---
Author Organization [facility] Address [address] [place] [address] Care Team Providers Care Scrap Charger Name Role Phone Wan Santoro MD Primary Care Provider [phone] Dalton Hurley MD Unavailable [phone] Geovanny Dominguez MD Unavailable [phone] Rudolph Dillard MD Unavailable [phone] Abdiel Vargas APRN Unavailable [phone] Rodney Maria MD Unavailable [phone] Brian Flores MD Unavailable [phone] Encounter Details Date Type Department Care Team (Latest Contact Info) Description 12/11/2024 Travel Social History Tobacco Use Types Packs/Day Years [...] Risk Indicated 12/11/2024 11:36 AM EDT [place], [place] R * Question Answer Date of Assessment Author 1. Wish to be (Past 1 Month) No 025 11:36 AM EDT Amor Klein R 2. Non-Specific Active Suici rahel Thoughts (Past 1 Month) No 12/11/2024 11:36 AM EDT Martha Kleinx R 6. Suicidal Behavior (Lifetime) No 5 11:36 AM EDT Amor Klein R documented as of this encounter Plan of Treatment Upcoming Encounters Date Type Department Care Team (Late st Contact Info) Description 02/11/2025 1:05 PM EDT Hospital Encounter [facility] Operating Room [address] [place] [address] Abdelrahman Betancur MD [address] [place] [address] 02/11/2025 1:05 PM EDT Anesthesia Event [facility] Operating Room [address] [place] [address] Evelyn Julian W, MICRO COMPUTER SPECIALIST [address] [place] [address] 02/11/2025 1:05 PM EDT - 02/11/2025 3:30 PM EDT Surgery [facility] Operating Room [address] [place] [address] Abdelrahman Betancur MD [address] [place] [address] ARTHROPLASTY, HIP, TOTAL, ANTERIOR APPROACH [[id number] (CPT )] 02/26/2025 11:20 AM EDT Office Visit Medical Office Building [facility] [address] [place] [address] Renetta Stoner PA [address] [place] [address] 03/06/2025 10:00 AM EDT Appointment Medical Office Building Cardiac Diagnostic Testing Medical Office Building Echo Lab [address] [facility], [address] [place] [address] 03/06/2025 11:30 AM EDT Office Visit [facility] [place] [address] [facility], [address] [place] [address] Dian Yancey PA [address] [place] [address] 03/26/2025 11:10 AM EDT Office Visit Medical Office Building [facility] [address] [facility], [address] [place] [address] Abdelrahman Betancur MD [address] [address] 04/02/2025 9:40 AM EDT Appointment [facility] [address] [place] [address] 04/02/2025 10:30 AM EDT Appointment [facility] [address] [place] [address] 04/02/2025 1:15 PM EDT Clinical Support [facility] [address] [facility], [address] [place] [address] 04/02/2025 1:40 PM EDT Office Visit [facility] [address] [facility], [address] [place] [address] Rudolph Dillard MD [address] [address] 04/08/2025 7:30 AM EDT Hospital Encounter [facility] Operating Room [address] [place] [address] Abdelrahman Betancur MD [address] [facility] [address] [place] [address] 04/08/2025 7:30 AM EDT - 04/08/2025 10:15 AM EDT Surgery [facility] Operating Room [address] [place] [address] Abdelrahman Betancur MD [address] [facility] [address] [place] [address] ARTHROPLASTY, HIP, TOTAL, ANTERIOR APPROACH [[id number] (CPT )] 04/23/2025 11:00 AM EDT Office Visit Medical Office Building [facility] [address] [facility], [address] [place] [address] Renetta Stoner PA [address] [facility] [address] [place] [address] 05/21/2025 11:10 AM EST Office Visit Medical Office Building [facility] [address] [facility], [address] [place] [address] Abdelrahman Betancur MD [address] [facility] [address] [place] [address] 01/08/2026 2:00 PM EDT Appointment Medical Office Building Cardiac Diagnostic Testing Medical Office Building Echo Lab [address] [facility], [address] [place] [address] 01/08/2026 3:00 PM EDT Office Visit [facility] [place] [address] [facility], [address] [place] [address] Dian Yancey PA [address] [place] [address] Scheduled Procedures Name Priority Associated Diagnoses Date/Ti me ARTHROPLASTY, HIP, TOTAL, ANTERIOR APPROACH Arthritis of left hip 02/11/2025 1:05 PM EDT ARTHROPLASTY, HIP, TOTAL, ANTERIOR APPROACH Arthritis of right hip 04/08/2025 7:30 AM EDT documented as of this encounter Visit Diagnoses Not on filedocumented in this encounter Additional Health Concerns Assessment Noted Time PHQ-9 Depression Total Score: 0 04/14/20 25 12:42 PM EDT A fall risk assessment has been complete d for the patient 12/11/2024 3:00 PM EDT A Body Mass Index follow-up plan has been documented for the patient 11/19/2024 11:40 AM EDT documented as of this encounter Care Teams Scrap Charger Relationship Specialty Start Date End Date Wan Santoro MD [address] [place] [address] PCP - General 01/20/21 Dalton Hurley MD 800 [facility] [address] [place] [address] Consulting Physician Radiation Therapy 03/27/21 Geovanny Dominguez MD [address] [place] [address] Surgeon Neurosurgery 05/21/21 Rudolph Dillard MD [address] [address] Consulting Physician Medical Oncology 09/22/21 Abdiel Vargas APRN 800 [facility] [address] [place] [address] Nurse Practitioner Internal Medicine 04/09/22 Rodney Maria MD 1210 [facility] [address] [place] [address] Referring Physician 11/14/24 Brian Flores MD 800 [place] [address] Consulting Physician Cardiology 11/14/24 documented as of this encounter
--- OUTSIDE RECORDS SUMMARY | 2025-02-01 11:17 | XMS_ITS | Clinical Summary ---
Author Organization [facility] Address [address] [place] [address] Care Team Providers Care Tanker Driver Name Role Phone Wan Santoro MD Primary Care Provider [phone] Encounters Date Type Department Care Team Description 11/27/2024 Documentation [facility] [address] [place] [address] Basilia Dimas, R.T.(R) from Last 3 Months Family History Medical History Relation Name Comments No Known Problems Brother No Known Problems Daughter No Known Problems Father No Known Problems Maternal Aunt No Known Problems Maternal Grandmother No Known Problems Mother No Known Problems Paternal Aunt No Known Problems Paternal Grandmother No Known Problems Sister No Known Problems Son Breast cancer Neg Hx Colon cancer Neg Hx Endometrial cancer Neg Hx Ovarian cancer Neg Hx Relation Name Status Comments Brother Daughter Father Maternal Aunt Maternal Grandmother Mother Paternal Aunt Paternal Grandmother Sister Son Social History Tobacco Use Types Packs/Day Years Used Date Smoking Tobacco: Never Assessed Comments No Sex and Gender Information Value Date Recorded Sex Assigned at Not on file Legal Sex Female 11:42 AM EDT Gender Identity Not on file Sexual Orientation Not on file Plan of Treatment Health Maintenance Due Date Last Done Comments COLOGUARD 09/18/1999 COLON CANCER SCREENING 5 YEA R SIGMOIDOSCOPY 09/18/1999 COLONOSCOPY 09/18/1999 COLORECTAL CANCER SCREENING 09/18/1999 CT COLONOGRAPHY 09/18/1999 FECAL OCCULT BLOOD TEST 09/18/1999 FIT Testing (1 year) 09/18/1999 Pneumococcal Vaccine 50+ (1 of 1 - PCV) 2004 ZOSTER VACCINE (1 of 2) 2004 DXA SCAN 06/25/2016 06/25/2014 COVID-19 Vaccine (1 - 2023-2 5 season) 2024 ANNUAL WELLNESS VISIT 10/26/2024 HEPATITIS C SCREENING 10/26/2024 INFLUENZA VACCINE 04/17/2025 MAMMOGRAM 10/25/2026 10/25/2024, /11/2023, 10/06/2022, Additional history exists TDAP/TD VACCINES (2 - Td or Tdap) 12/03/2031 022 Procedures Procedure Name Priority Date/Time Associated Diagnosis Comments MAMMO SCREENING DIGITAL TOMOSYNTHESIS BILATERAL W CAD Routine 10/25/2024 10:43 AM EDT Visit for screening mammogram from Last 3 Months or Most Recently Relevant to Health Maintenance Results * Mammo Screening Digital Tomosynthesis Bilateral With CAD (10/25/2024 10:43 AM EDT) Anatomical Region Laterality Modality Breast N/A Mammography 10/27/2024 3:33 PM EDT Impressions 10/27/2024 3:35 PM EDT Negative bilateral mammogram. RECOMMENDATION: Continue annual screening mammography. BI-RADS CATEGORY 1, NEGATIVE. CAD was utilized. The standard false-negative rate of mammography is between 10% and 25%. Complex patterns or increased breast density will markedly elevate the false-negative rate of mammography. A letter, in lay terminology, with the results of this exam will be mailed to the patient. 10/27/2024 3:[address] Salas Brandon MD on Narrative 10/27/2024 3:35 PM EDT DIGITAL SCREENING MAMMOGRAM WITH TOMOSYNTHESIS HISTORY: Screening Mammography. Low dose full field digital breast tomosynthesis imaging was performed with 2D and 3D acquisitions consisting of bilateral CC and MLO views. Examination is compared to prior examination dating back to 01/24/2017. Examination is read in conjunction with computer aided detection. FINDINGS: The breast tissue is heterogeneously dense, which may obscure small masses. No suspicious masses, microcalcifications or areas of architectural distortion are present. Ann Ospina MD IMG MAMMOGRAPHY ORDERABLES Final Result from Last 3 Months or Most Recently Relevant to Health Maintenance Insurance [facility] Medicare [employer] PPO Care Teams Tanker Driver Relationship Specialty Start Date End Date Wan Santoro MD [address] [facility] [address] [place] [address] PCP - General Internal Medicine 05/10/16
--- OUTSIDE RECORDS SUMMARY | 2025-02-01 11:17 | XMS_ITS | Encounter Summary ---
Author Organization [facility] Address [address] [place] [address] Care Team Providers Care General Maintenance Mechanic Name Role Phone Wan Santoro MD Primary Care Provider [phone] Dalton Hurley MD Unavailable [phone] Geovanny Dominguez MD Unavailable [phone] Rudolph Dillard MD Unavailable [phone] Abdiel Vargas LENS GAUGER Unavailable [phone] Rodney Maria MD Unavailable [phone] Brian Flores MD Unavailable [phone] Encounter Details Date Type Department Care Team (Late st Contact Info) Description 01/26/2021 Lab Requisition [facility] [address] [place] [address] Rudolph Dillard MD [address] [address] Other nonspecific abnormal finding of lung field Social History Tobacco Use Types Packs/Day Years Used Date Smoking Tobacco: Never Assessed PHQ-2 Answer Date Recorded Patient Health Questionnaire-2 Score 0 01/27/2021 Comments Unknown Sex and Gender Information Value Date Recorded Sex Assigned at Not on file Legal Sex Female 7:30 PM EDT Gender Identity Not on file Sexual Orientation Not on file COVID-19 Exposure Response Date Recorded In the last month, have you been in contact with someone who was confirmed or suspected to have Coronavirus / COVID-19? No / Unsure 01/27/2021 12:37 PM EDT documented as of this encounter Functional Status * Over the past 2 weeks, how often have you been bothered by any of the following problems? Question Answer Date of Assessment Author Little interest or pleasure in doing things Not at all 01/27/2021 1:00 PM EDT Jacqueline Otero Feeling down, depressed, or hopeless Not at all 01/27/2021 1:00 PM EDT Jacqueline Otero Patient Health Questionnaire -2 Score 0 01/27/2021 1:00 PM EDT Jacqueline Otero * Question Answer Date of Assessment Author Trouble falling or staying a sleep, or sleeping too much Not at all 01/27/2021 1:00 PM EDT Jacqueline Otero Feeling tired or having brandee le energy Not at all 01/27/2021 1:00 PM EDT Jacqueline Otero Poor appetite or overeating Not at all 01/27/2021 1: 00 PM EDT Jacqueline Otero Feeling bad about yourself - or that you are a failure or have let yourself or your family down Not at all 01/27/2021 1:00 PM EDT Jacqueline Otero Trouble concentrating on thi ngs, such as reading the newspaper or watching television Not at all 01/27/2021 1:00 PM EDT Jacqueline Otero Moving or speaking so slowly that other people could have noticed? Or the opposite - being so fidgety or restless that you have been moving around a lot more than usual. Not at all 01/27/2021 1:00 PM EDT Jacqueline Otero Thoughts that you would be b kwadwo off or hurting yourself in some way Not at all 01/27/2021 1:00 PM EDT Jacqueline Otero Patient Health Questionnaire -9 Score 0 01/27/2021 1:00 PM EDT Jacqueline Otero documented as of this encounter Plan of Treatment Upcoming Encounters Date Type Department Care Team (Late st Contact Info) Description 02/11/2025 1:05 PM EDT Hospital Encounter [facility] S Operating Room [address] [place] [address] Abdelrahman Betancur MD [address] [facility] [address] [place] [address] 02/11/2025 1:05 PM EDT Anesthesia Event [facility] S Operating Room [address] [place] [address] Evelyn Julian W, LENS GAUGER [address] [place] [address] 02/11/2025 1:05 PM EDT - 02/11/2025 3:30 PM EDT Surgery [facility] S Operating Room [address] [place] [address] Abdelrahman Betancur MD [address] [facility] [address] [place] [address] ARTHROPLASTY, HIP, TOTAL, ANTERIOR APPROACH [71342 (CPT )] 02/26/2025 11:20 AM EDT Office Visit Medical Office Building [facility] [address] [facility], [address] [place] [address] Renetta Stoner PA [address] [facility] [address] [place] [address] 03/06/2025 10:00 AM EDT Appointment Medical Office Building Cardiac Diagnostic Testing Medical Office Building Echo Lab [address] [facility], [address] [place] [address] 03/06/2025 11:30 AM EDT Office Visit [facility] [place] [facility] [address] [facility], [address] [place] [address] Dian Yancey PA [address] [place] [address] 03/26/2025 11:10 AM EDT Office Visit Medical Office Building Surgery Sp[facility] [address] [facility], [address] [place] [address] Abdelrahman Betancur MD [address] [facility] [address] [place] [address] 04/02/2025 9:40 AM EDT Appointment [facility] Radiology [address] [place] [address] 04/02/2025 10:30 AM EDT Appointment [facility] Radiology [address] [place] [address] 04/02/2025 1:15 PM EDT Clinical Support [facility] 800 [facility], 2nd [place] [address] 04/02/2025 1:40 PM EDT Office Visit [facility] 800 [facility], [address]nd [place] [address] Rudolph Dillard MD [address] [address] 04/08/2025 7:30 AM EDT Hospital Encounter [facility] S Operating Room [address] [place] [address] Abdelrahman Betancur MD [address] [address] 04/08/2025 7:30 AM EDT - 04/08/2025 10:15 AM EDT Surgery [facility] S Operating Room [address] [place] [address] Abdelrahman Betancur MD 125 [address] [facility] [address] [place] [address] ARTHROPLASTY, HIP, TOTAL, ANTERIOR APPROACH [41659 (CPT )] 04/23/2025 11:00 AM EDT Office Visit Medical Office Building Surgery [facility] [address] [facility], [address] [place] [address] Renetta Stoner PA [address] [place] [address] 05/21/2025 11:10 AM EST Office Visit Medical Office Building Surgery [facility] [address] [place] [address] Abdelrahman Betancur MD [address] [place] [address] 01/08/2026 2:00 PM EDT Appointment Medical Office Building Cardiac Diagnostic Testing Medical Office Building Echo Lab [address] [facility], [address] [place] [address] 01/08/2026 3:00 PM EDT Office Visit [facility] [place] [facility] [address] [facility], [address] [place] [address] Dian Yancey PA [address] [place] [address] Scheduled Procedures Name Priority Associated Diagnoses Date/Ti me ARTHROPLASTY, HIP, TOTAL, ANTERIOR APPROACH Arthritis of left hip 02/11/2025 1:05 PM EDT ARTHROPLASTY, HIP, TOTAL, ANTERIOR APPROACH Arthritis of right hip 04/08/2025 7:30 AM EDT documented as of this encounter Procedures Procedure Name Priority Date/Time Associated Diagnosis Comments CYTOLOGY CONSULT Routine 01/26/2021 11:0 3 AM EDT Other nonspecific abnormal finding of lung field documented in this encounter Results * Cytology Consult (01/26/2021 11:03 AM EDT) Case Report Cytology Case: [id number] Authorizing Provider: Rudolph Dillard MD Collected: 01/26/20211102 Ordering Location: [facility] Lab Received: 01/26/2021 110 Pathologist: Del Sosa MD Specimen: Lung, OU [id number] 01/27/2021 10:31 AM EDT [facility] Final Diagnosis OUTSIDE SLIDES RECEIVED (COLLECTED 01/12/2021), DESIGNATED FOLLOWS: A. LYMPH NODE, 10R, EBUS FINE NEEDLE ASPIRATION BIOPSY: - LYMPHOID STROMA; NEGATIVE FOR MALIGNANCY. B. LYMPH NODE, STATION 7, EBUS FINE NEEDLE ASPIRATION BIOPSY: - POSITIVE FOR MALIGNANCY, NON-SMALL CELL CARCINOMA, COMPATIBLE WITH PULMONARY ADENOCARCINOMA (SEE COMMENT). C. LYMPH NODE, 10L, EBUS FINE NEEDLE ASPIRATION BIOPSY: - POSITIVE FOR MALIGNANCY, NON-SMALL CELL CARCINOMA, COMPATIBLE WITH PULMONARY ADENOCARCINOMA. 01/27/2021 10:31 AM EDT [facility] at 1031 EDT Comment The clinical history of a left upper lobe lung mass with adenopathy in a non-smoker is noted. Smears and cell block from station 7 and 10L lymph nodes show non-small cell carcinoma. Immunohistochemical stains performed at the outside institution on the station 7 lymph node are submitted for review, and these show the malignant cells to be positive for TTF-1 and negative for p40. 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 Complete correlation with clinical and imaging findings is needed. 01/27/2021 10:31 AM EDT [facility] Clinical Information Left upper lobe lung mass biopsy from outside reportedly showed no alveolated lung, benign bronchial epithelium, and bronchial mucosa; negative for tumor 01/27/2021 10:31 AM EDT [facility] Gross Description A. OU [id number] For clinical data and diagnosis (A. NEGATIVE; B. MALIGNANT; C. MALIGNANT) for this specimen ([id number]/A. FNA; B. FNA; C. FNA) see final report issued by [facility] Pathology Department. 01/27/2021 10:31 AM EDT [facility] Fine Needle Aspirate Lung structure / Unknown 01/26/2021 11:03 AM EDT 01/26/2021 11:03 AM EDT us Rudolph Dillard MD LAB PATHOLOGY ORDERABLES Final Result [facility] [address] [place] [id number] documented in this encounter Visit Diagnoses Diagnosis Other nonspecific abnormal finding of lung field Arthritis of left hip Arthritis of right hip documented in this encounter Care Teams General Maintenance Mechanic Relationship Specialty Start Date End Date Wan Santoro MD [address] [facility] [address] [place], [place] [id number] PCP - General 01/20/21 Dalton Hurley MD 800 [facility] [address] [place] [address] Consulting Physician Radiation Therapy 03/27/21 Geovanny Dominguez MD [address] [place] [address] Surgeon Neurosurgery 05/21/21 Rudolph Dillard MD [address] [place] [address] Consulting Physician Medical Oncology 09/22/21 Abdiel Vargas, LENS GAUGER [address] [place] [address] Nurse Practitioner Internal Medicine 04/09/22 Rodney Maria MD 1210 [facility] [address] [place] [address] Referring Physician 11/14/24 Brian Flores MD [address] [place] [address] Consulting Physician Cardiology 11/14/24 documented as of this encounter
--- OUTSIDE RECORDS SUMMARY | 2025-02-01 11:17 | XMS_ITS | Encounter Summary ---
Author Organization [facility] Address [address] [place] [address] Care Team Providers Care Commercial Intelligence Manager Name Role Phone Wan Santoro MD Primary Care Provider [phone] Dalton Hurley MD Unavailable [phone] Geovanny Dominguez MD Unavailable [phone] Rudolph Dillard MD Unavailable [phone] Abdiel Vargas APRN Unavailable [phone] Rodney Maria MD Unavailable [phone] Brian Flores MD Unavailable [phone] Reason for Referral * Consultation (Routine) - Closed Specialty Diagnoses / Procedures Referred By [place] Referred To Contact Orthopaedic Surgery Diagnoses Primary osteoarthritis of both hips Lan Justin DO [address] [place] [address] [place] [address] Phone: tel: fax: Abdelrahman Betancur MD [address] [facility] 201 [place] [address] Phone: tel: fax: Referral ID Status Reason Start Date Expiration Date Visits Re quested Visits Authorized [id number] Closed 07/19/2024 01/18/2026 1 1 Encounter Details Date Type Department Care Team (Latest Contact Info) Description 07/19/2024 [facility] [address] [place] [address] Lan Justin, DO [address] [place] [address] [place] [address] Primary osteoarthritis of both hips (Primary Dx) Social History Tobacco Use Types Packs/Day Years Used Date Smoking Tobacco: Never Smokeless Tobacco: Never Alcohol Use Standard Drinks/Week Comments Never 0 (1 standard drink = 0.6 oz pur e alcohol) PHQ-2 Answer Date Recorded Patient Health Questionnaire-2 Score 0 10/30/2021 Comments No Sex and Gender Information Value Date Recorded Sex Assigned at Not on file Legal Sex Female 7:30 PM EDT Gender Identity Not on file Sexual Orientation Not on file documented as of this encounter Plan of Treatment Upcoming Encounters Date Type Department Care Team (Late st Contact Info) Description 02/11/2025 1:05 PM EDT Hospital Encounter [facility] S Operating Room [address] [place] [address] Abdelrahman Betancur MD [address] [address] 02/11/2025 1:05 PM EDT Anesthesia Event [facility] S Operating Room [address] [place] [address] Evelyn Julian W, MODEL AND MOLD MAKER [address] [facility] [address] [place] [address] 02/11/2025 1:05 PM EDT - 02/11/2025 3:30 PM EDT Surgery [facility] S Operating Room [address] [place] [address] Abdelrahman Betancur MD [address] [address] ARTHROPLASTY, HIP, TOTAL, ANTERIOR APPROACH [17583 (CPT )] 02/26/2025 11:20 AM EDT Office Visit Medical Office Building Surgery Spine & Joint [address] [facility], [address] [place] [address] Renetta Stoner PA [address] [facility] [address] [place] [address] 03/06/2025 10:00 AM EDT Appointment Medical Office Building Cardiac Diagnostic Testing Medical Office Building Echo Lab [address] [facility], [address] [place] [address] 03/06/2025 11:30 AM EDT Office Visit [facility] [address] [facility], [address] [place] [address] Dian Yancey PA [address] [place] [address] 03/26/2025 11:10 AM EDT Office Visit Medical Office Building Surgery Spine & Joint [address] [facility], [address] [place] [address] Abdelrahman Betancur MD [address] [facility] 201 [place] [address] 04/02/2025 9:40 AM EDT Appointment [facility] G Radiology [address] [place] [address] 04/02/2025 10:30 AM EDT Appointment [facility] Radiology [address] [place] [address] 04/02/2025 1:15 PM EDT Clinical Support [facility] 800 [facility], 2nd [place] [address] 04/02/2025 1:40 PM EDT Office Visit [facility] 800 [facility], 2nd [place] [address] Rudolph Dillard MD [address] [address] 04/08/2025 7:30 AM EDT Hospital Encounter [facility] S Operating Room [address] [place] [address] Abdelrahman Betancur MD [address] [facility] 201 [place] [address] 04/08/2025 7:30 AM EDT - 04/08/2025 10:15 AM EDT Surgery [facility] S Operating Room 310 [place] [address] Abdelrahman Betancur MD [address] [facility] 201 [place] [address] ARTHROPLASTY, HIP, TOTAL, ANTERIOR APPROACH [77177 (CPT )] 04/23/2025 11:00 AM EDT Office Visit Medical Office Building Surgery Sp[facility] & [facility] [address] [facility], [address] [place] [address] Renetta Stoner PA [address] [facility] 201 [place] [address] 05/21/2025 11:10 AM EST Office Visit Medical Office Building Surgery Sp[facility] [address] [facility], [address] [place] [address] Abdelrahman Betancur MD [address] [facility] 201 [place] [address] 01/08/2026 2:00 PM EDT Appointment Medical Office Building Cardiac Diagnostic Testing Medical Office Building Echo Lab [address] [facility], [address] [place] [address] 01/08/2026 3:00 PM EDT Office Visit [facility] [address] [facility], [address] [place] [address] Dian Yancey PA [address] [place] [address] Scheduled Procedures Name Priority Associated Diagnoses Date/Ti me ARTHROPLASTY, HIP, TOTAL, ANTERIOR APPROACH Arthritis of left hip 02/11/2025 1:05 PM EDT ARTHROPLASTY, HIP, TOTAL, ANTERIOR APPROACH Arthritis of right hip 04/08/2025 7:30 AM EDT Scheduled Referrals Name Type Priority Associated Diagnoses Orde r Schedule Ambulatory referral to Orthopaedics Joint Reconstruction Outpatient Referral Routine Primary osteoarthritis of both hips Expected: 07/19/2024 (Approximate), Expires: 07/19/2025 documented as of this encounter Visit Diagnoses Diagnosis Primary osteoarthritis of both hips- Primary Arthritis of left hip Arthritis of right hip documented in this encounter Additional Health Concerns Assessment Noted Time PHQ-9 Depression Total Score: 0 01/28/20 1:00 PM EDT A fall risk assessment has been complete d for the patient 05/29/2024 1:34 PM EST A Body Mass Index follow-up plan has been documented for the patient 08/18/2023 1:23 PM EST documented as of this encounter Care Teams Commercial Intelligence Manager Relationship Specialty Start Date End Date Wan Santoro MD [facility] [place] [address] PCP - General 01/20/21 Dalton Hurley MD 800 [facility] [address] [place] [address] Consulting Physician Radiation Therapy 03/27/21 Geovanny Dominguez MD [address] [place] [address] Surgeon Neurosurgery 05/21/21 Rudolph Dillard MD 800 [facility] 2nd [place] [address] Consulting Physician Medical Oncology 09/22/21 Abdiel Vargas APRN 800 [facility] [address] [place] [address] Nurse Practitioner Internal Medicine 04/09/22 Rodney Maria MD [facility] [place] [address] Referring Physician 11/14/24 Brian Flores MD [address] [place] [address] Consulting Physician Cardiology 11/14/24 documented as of this encounter
--- OUTSIDE RECORDS SUMMARY | 2025-02-01 11:17 | XMS_ITS | Encounter Summary ---
Author Organization Healthcare Address [address] [place] [address] Care Team Providers Care Assistant Guest Services Manager Name Role Phone Wan Santoro MD Primary Care Provider [phone] Dalton Hurley MD Unavailable [phone] Geovanny Dominguez MD Unavailable [phone] Rudolph Dillard MD Unavailable [phone] Abdiel Vargas APRN Unavailable [phone] Rodney Maria MD Unavailable [phone] Brian Flores MD Unavailable [phone] Encounter Details Date Type Department Care Team (Latest Contact Info) Description 12/20/2024 Travel Social History Tobacco Use Types Packs/Day [...] Hospital Encounter [facility] S Operating Room [address] [place] [address] Abdelrahman Betancur MD [address] [place] [address] 02/11/2025 1:05 PM EDT Anesthesia Event [facility] S Operating Room [address] [place] [address] JulianEvelyn W, HELPER COORDINATOR [address] [place] [address] 02/11/2025 1:05 PM EDT - 02/11/2025 3:30 PM EDT Surgery [facility] S Operating Room [address] [place] [address] Abdelrahman Betancur MD [address] [facility] 201 [place] [address] ARTHROPLASTY, HIP, TOTAL, ANTERIOR APPROACH [70924 (CPT )] 02/26/2025 11:20 AM EDT Office Visit Medical Office Building Surgery Spine & Joint [address] [facility], [address] [place] [address] Renetta Stoner PA [address] [facility] [address] [place] [address] 03/06/2025 10:00 AM EDT Appointment Medical Office Building Cardiac Diagnostic Testing Medical Office Building Echo Lab [address] [facility], [address] [place] [address] 03/06/2025 11:30 AM EDT Office Visit [facility] [place] [address] [facility], [address] [place] [address] Dian Yancey PA [address] [place] [address] 03/26/2025 11:10 AM EDT Office Visit Medical Office Building Surgery Spine & Joint [address] [facility], [address] [place] [address] Abdelrahman Betancur MD [address] [facility] [address] [place] [address] 04/02/2025 9:40 AM EDT Appointment [facility] G Radiology [address] [place] [address] 04/02/2025 10:30 AM EDT Appointment [facility] G Radiology [address] [place] [address] 04/02/2025 1:15 PM EDT Clinical Support Pav [facility] Res[facility] 800 [facility], 2nd [place] [address] 04/02/2025 1:40 PM EDT Office Visit Pav [facility] Res[facility] 800 [facility], [address] [place] [address] Rudolph Dillard MD [address] [address] 04/08/2025 7:30 AM EDT Hospital Encounter [facility] S Operating Room [address] [place] [address] Abdelrahman Betancur MD [address] [address] 04/08/2025 7:30 AM EDT - 04/08/2025 10:15 AM EDT Surgery [facility] S Operating Room [address] [place] [address] Abdelrahman Betancur MD [address] [facility] [address] [place] [address] ARTHROPLASTY, HIP, TOTAL, ANTERIOR APPROACH [23127 (CPT )] 04/23/2025 11:00 AM EDT Office Visit Medical Office Building Surgery Spine & Joint [address] [facility], [address] [place] [address] Renetta Stoner PA [address] [place] [address] [place] [address] 05/21/2025 11:10 AM EST Office Visit Medical Office Building Surgery Sp[facility] & Joint [address] [facility], [address] [place] [address] Abdelrahman Betancur MD [address] [facility] 201 [place] [address] 01/08/2026 2:00 PM EDT Appointment Medical Office Building Cardiac Diagnostic Testing Medical Office Building Echo Lab [address] [facility], [address] [place] [address] 01/08/2026 3:00 PM EDT Office Visit [facility] [place] [address] [facility], [address] [place] [address] Dian Yancey PA 800 [place] [address] Scheduled Procedures Name Priority Associated [...] documented as of this encounter Care Teams Assistant Guest Services Manager Relationship Specialty Start Date End Date Wan Santoro MD 1210 [facility] [address] [place] [address] PCP - General 01/20/21 Dalton Hurley MD 800 [facility] [address] [place] [address] Consulting Physician Radiation Therapy 03/27/21 Geovanny Dominguez MD [address] [facility] [address] [place] [address] Surgeon Neurosurgery 05/21/21 Rudolph Dillard MD [address] [address] Consulting Physician Medical Oncology 09/22/21 Abdiel Vargas, HELPER COORDINATOR 800 [facility] [address] [place] [address] Nurse Practitioner Internal Medicine 04/09/22 Rodney Maria MD [address] [address] Referring Physician 11/14/24 Brian Flores MD 800 [place] [address] Consulting Physician Cardiology 11/14/24 documented as of this encounter
--- OUTSIDE RECORDS SUMMARY | 2025-02-01 11:17 | XMS_ITS | Encounter Summary ---
Author Organization [facility] Address [address] [place] [address] Care Team Providers Care Gear Roller Name Role Phone Wan Santoro MD Primary Care Provider [phone] Dalton Hurley MD Unavailable [phone] Geovanny Dominguez MD Unavailable [phone] Rduolph Dillard MD Unavailable [phone] Abdiel Vargas APRN Unavailable [phone] Rodney Maria MD Unavailable [phone] Brian Flores MD Unavailable [phone] Reason for Referral * Imaging (Routine) - Pending Review Specialty Diagnoses / Procedures Referred By Contac t Referred To Contact Radiology Diagnoses 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) Adenocarcinoma of left lung (CMS/HCC) Procedures MR Head w and wo IV Contrast Rudolph Dillard MD [address] [place] [phone] Phone: tel: fax: Referral ID Status Reason Start Date Expiration Date V isits Requested Visits Authorized [id number] Pending Review 12/12/2024 06/13/2026 1 1 * Imaging (Routine) - Pending Review Specialty Diagnoses / Procedures Referred By Contac t Referred To Contact Radiology Diagnoses 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) Adenocarcinoma of left lung (CMS/HCC) Procedures CT Chest w IV Contrast Rudolph Dillard MD [address] [facility] [address] [place] [address] Phone: tel: fax: Referral ID Status Reason Start Date Expiration Date V isits Requested Visits Authorized [id number] Pending Review 12/12/2024 06/13/2026 1 1 Encounter Details Date Type Department Care Team (Late Contact Info) Description 12/11/2024 Orders Only Pav [facility] Head, Neck & Respiratory [address] [facility], 2nd [place] [address] Juancarlos Bal RN 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) (Primary Dx); Encounter for antineoplastic chemotherapy; Adenocarcinoma of left [...] Month) No 12/11/2024 11:36 AM EDT Martha Kleinnix R 6. Suicidal Behavior (Lifetime) No 11:36 AM EDT Amor Klein R documented as of this encounter Plan of Treatment Upcoming Encounters Date Type Department Care Team (Late Contact Info) Description 02/11/2025 1:05 PM EDT Hospital Encounter [facility] Operating Room [address] [place] [address] Abdelrahman Betancur MD [address] [facility] 201 [place] [phone] 02/11/2025 1:05 PM EDT Anesthesia Event [facility] Operating Room [address] [place] [phone] Evelyn Julian W, MANAGER INVESTIGATIONS [address] [facility] [address] [place] [address] 02/11/2025 1:05 PM EDT - 02/11/2025 3:30 PM EDT Surgery [facility] Operating Room [address] [place] [address] Abdelrahman Betancur MD [address] [facility] 201 [place] [address] ARTHROPLASTY, HIP, TOTAL, ANTERIOR APPROACH [89574 (CPT )] 02/26/2025 11:20 AM EDT Office Visit Medical Office Building Surgery Spine & Joint [address] [facility], [address] [place] [address] Renetta Stoner PA [address] [facility] 201 [place] [address] 03/06/2025 10:00 AM EDT Appointment Medical Office Building Cardiac Diagnostic Testing Medical Office Building Echo Lab [address] [facility], [address] [place] [address] 03/06/2025 11:30 AM EDT Office Visit [facility] Amasa Orleans [address] [facility], [address] [place] [address] Dian Yancey PA [address] [place] [address] 03/26/2025 11:10 AM EDT Office Visit Medical Office Building Surgery Spine & Joint [address] [facility], [address] [place] [address] Abdelrahman Betancur MD [address] [facility] 201 [place] [address] 04/02/2025 9:40 AM EDT Appointment [facility] Radiology [address] [place] [address] 04/02/2025 10:30 AM EDT Appointment [facility] Radiology [address] [place] [address] 04/02/2025 1:15 PM EDT Clinical Support [facility] Head, Neck & Respiratory [address] [facility], 2nd [place] [address] 04/02/2025 1:40 PM EDT Office Visit [facility] Head[facility] Neck & Respiratory [address] [facility], [address] [place] [address] Rudolph Dillard MD [address] [address] 04/08/2025 7:30 AM EDT Hospital Encounter [facility] Operating Room [address] [place] [address] Abdelrahman Betancur MD [address] [address] 04/08/2025 7:30 AM EDT - 04/08/2025 10:15 AM EDT Surgery [facility] Operating Room [address] [place] [address] Abdelrahman Betancur MD [address] [facility] 201 [place] [address] ARTHROPLASTY, HIP, TOTAL, ANTERIOR APPROACH [49817 (CPT )] 04/23/2025 11:00 AM EDT Office Visit Medical Office Building Surgery [facility] [address], [address] [place] [address] Renetta Stoner PA [address] [place] [address] 05/21/2025 11:10 AM EST Office Visit Medical Office Building Surgery Sp[facility] [address], [address] [place] [address] Abdelrahman Betancur MD [address] [place] [address] 01/08/2026 2:00 PM EDT Appointment Medical Office Building Cardiac Diagnostic Testing Medical Office Building Echo Lab [address] [facility], [address] [place] [address] 01/08/2026 3:00 PM EDT Office Visit [facility] Amasa Luis A [address], [address] [place] [address] Dian Yancey PA [address] [place] [address] Scheduled Orders Name Type Priority Associated Diagnoses Orde r Schedule CT Chest w IV Contrast Imaging Routine 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) Adenocarcinoma of left lung (CMS/HCC) Expected: 04/02/2025, Expires: 06/14/2026 MR Head w and wo IV Contrast Imaging Routine 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) Adenocarcinoma of left lung (CMS/HCC) Expected: 04/02/2025, Expires: 06/14/2026 Comprehensive Metabolic Panel, Plasma Lab Routine 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) Adenocarcinoma of left lung (CMS/HCC) Expected: 04/02/2025, Expires: 12/12/2025 CBC and Differential Lab Routine 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) Adenocarcinoma of left lung (CMS/HCC) Expected: 04/02/2025, Expires: 12/12/2025 Scheduled Procedures Name Priority Associated Diagnoses Date/Ti me ARTHROPLASTY, HIP, TOTAL, ANTERIOR APPROACH Arthritis of left hip 02/11/2025 1:05 PM EDT ARTHROPLASTY, HIP, TOTAL, ANTERIOR APPROACH Arthritis of right hip 04/08/2025 7:30 AM EDT documented as of this encounter Results * (ABNORMAL) CBC and Differential (12/11/2024 11:41 AM EDT) WBC Count 7.47 3.70 - 10.30 10*3/uL LAB HEMATOLOGY METHOD 12/11/2024 12:[address] [facility] RBC Count 3.74(L) 3.90 - 5.20 10*6/uL LAB HEMATOLOGY METHOD 12/11/2024 12:[address] [facility] HGB 11.4 11.2 - 15.7 g/dL LAB HEMATOLOGY METHOD 12/11/2024 12:[address] [facility] HCT 34.1 34.0 - 45.0 % LAB HEMATOLOGY METHOD 12/11/2024 12:[address] [facility] Platelet Count 157 155 - 369 10*3/uL LAB HEMATOLOGY METHOD 12/11/2024 12:[address] [facility] MCV 91 79 - 98 fL LAB HEMATOLOGY METHOD 12/11/2024 12:[address] [facility] MCH 30.5 26.0 - 32.0 pg LAB HEMATOLOGY METHOD 12/11/2024 12:[address] [facility] MCHC 33.4 30.7 - 35.5 g/dL LAB HEMATOLOGY METHOD 12/11/2024 12:[address] [facility] RDW 13.6 11.5 - 14.5 % LAB HEMATOLOGY METHOD 12/11/2024 12:[address] [facility] MPV 10.7 8.8 - 12.5 fL LAB HEMATOLOGY METHOD 12/11/2024 12:[address] [facility] nRBC 0.0 <=0.0 per 100 WBCs LAB HEMATOLOGY METHOD 12/11/2024 12:[address] [facility] Differential Type Automated LAB HEMATOLOGY METHOD 12/11/2024 12:[address] [facility] Neutrophils % 77 % LAB HEMATOLOGY METHOD 12/11/2024 12:[address] [facility] Lymphocytes % 15 % LAB HEMATOLOGY METHOD 12/11/2024 12:[address] [facility] Monocytes % 6 % LAB HEMATOLOGY METHOD 12/11/2024 12:[address] [facility] Eosinophils % 2 % LAB HEMATOLOGY METHOD 12/11/2024 12:[address] [facility] Basophils % 0 % LAB HEMATOLOGY METHOD 12/11/2024 12:[address] [facility] Immature Granulocytes % 0 % LAB HEMATOLOGY METHOD 12/11/2024 12:[address] [facility] Neutrophils Absolute 5.71 1.60 - 6.10 10*3/uL LAB HEMATOLOGY METHOD 12/11/2024 12:[address] [facility] Lymphocytes Absolute 1.10(L) 1.20 - 3.90 10*3/uL LAB HEMATOLOGY METHOD 12/11/2024 12:[address] [facility] Monocytes Absolute 0.47 0.30 - 0.90 10*3/uL LAB HEMATOLOGY METHOD 12/11/2024 12:[address] [facility] Eosinophils Absolute 0.14 0.00 - 0.50 10*3/uL LAB HEMATOLOGY METHOD 12/11/2024 12:[address] [facility] Basophils Absolute 0.02 0.00 - 0.10 10*3/uL LAB HEMATOLOGY METHOD 12/11/2024 12:[address] [facility] Immature Granulocytes Absolute 0.03 0.00 - 0.06 10*3/uL LAB HEMATOLOGY METHOD 12/11/2024 12:[address] [facility] Blood Venous blood specimen / Unknown Venipuncture / Unknown 12/11/2024 11:41 AM EDT 12/11/2024 12:[address] [facility] - 12/11/2024 12:34 PM EDT Therapeutic decision making should be based on absolute values, rather than percentages. us Rudolph Dillard MD LAB BLOOD ORDERABLES Final Res ult [facility] [address] [place] [address] * (ABNORMAL) Comprehensive Metabolic Panel, Plasma (12/11/2024 11:41 AM EDT) Glucose, Plasma 83 74 - 99 mg/dL 12/11/2024 12:[address] [facility] BUN, Plasma 21 8 - 23 mg/dL 12/11/2024 12:[address] [facility] Creatinine, Plasma 0.84 0.60 - 1.10 mg/dL 12/11/2024 12:[address] [facility] BUN/Creatinine Ratio 25 12/11/2024 12:[address] [facility] Sodium, Plasma 140 136 - 145 mmol/L 12/11/2024 12:[address] [facility] Potassium, Plasma 3.5(L) 3.6 - 4.9 mmol/L 12/11/2024 12:[address] [facility] Chloride, Plasma 106 97 - 107 mmol/L 12/11/2024 12:[address] [facility] CO2, Plasma 21(L) 22 - 29 mmol/L 12/11/2024 12:[address] [facility] Anion Gap 13 6 - 16 mmol/L 12/11/2024 12:[address] [facility] Total Calcium, Plasma 9.4 8.9 - 10.2 mg/dL 12/11/2024 12:[address] [facility] Total Protein 6.5 6.3 - 7.9 g/dL 12/11/2024 12:[address] [facility] Albumin, Plasma 4.0 3.5 - 5.2 g/dL 12/11/2024 12:[address] [facility] AST, Plasma 20 10 - 35 U/L 12/11/2024 12:[address] [facility] Comment:Hemolyzed, result ma y be falsely increased. ALT, Plasma 13 10 - 35 U/L 12/11/2024 12:[address] [facility] Alkaline Phosphatase, Plasma 70 46 - 142 U/L 12/11/2024 12:[address] [facility] Total Bilirubin, Plasma 0.7 0.2 - 1.1 mg/dL 12/11/2024 12:[address] [facility] eGFRcr 74.9 mL/min/1.7 3m*2 12/11/2024 12:[address] [facility] Comment:Reported eGFRcr in m L/min/1.73m2 is based the CKD-EPI 2020 equation that does not use a race coefficient. Blood Venous blood specimen / Unknown Venipuncture / Unknown 12/11/2024 11:41 AM EDT 12/11/2024 12:11 PM EDT us Rudolph Dillard MD LAB BLOOD ORDERABLES Final Res ult [facility] [address] [place] [address] documented in this encounter Visit Diagnoses Diagnosis 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)- Primary Encounter for antineoplastic chemotherapy Adenocarcinoma of left [...] documented as of this encounter Care Teams Gear Roller Relationship Specialty Start Date End Date Wan Santoro MD [facility] [address] [place] [address] PCP - General 01/20/21 Dalton Hurley MD [address] [facility] [address] [place] [address] Consulting Physician Radiation Therapy 03/27/21 Geovanny Dominguez MD [address] [facility] [address] [place] [address] Surgeon Neurosurgery 05/21/21 Rudolph Dillard MD [address] [address] Consulting Physician Medical Oncology 09/22/21 Abdiel Vargas APRN 800 [facility] [address] [place] [address] Nurse Practitioner Internal Medicine 04/09/22 Rodney Maria MD [address] [address] Referring Physician 11/14/24 Brian Flores MD [address] [place] [phone] Consulting Physician Cardiology 11/14/24 documented as of this encounter
--- OUTSIDE RECORDS SUMMARY | 2025-02-01 11:17 | XMS_ITS | Encounter Summary ---
Author Organization [facility] Address [address] [place] [address] Care Team Providers Care Lead Military Analyst Name Role Phone Wan Santoro MD Primary Care Provider [phone] Dalton Hurley MD Unavailable [phone] Geovanny Dominguez MD Unavailable [phone] Rudolph Dillard MD Unavailable [phone] Abdiel Vargas APRN Unavailable [phone] Rodney Maria MD Unavailable [phone] Brian Floers MD Unavailable [phone] Encounter Details Date Type Department Care Team (Late st Contact Info) Description 12/24/2024 Telephone Pav CC Head, Neck & Respiratory 800 [facility], 2nd [place] [phone] Juancarlos Bal RN Social History Tobacco Use Types Packs/Day Years [...] as of this encounter Miscellaneous Notes * Telephone Encounter - Juancarlos Bal RN - 12/24/2024 2:42 PM EDT RN called and spoke with the patient regarding upcoming appointments on March. Patient verbalized understanding and is agreeable to plan. Patient to call to reschedule if needed. documented in this encounter Plan of Treatment Upcoming Encounters Date Type Department Care Team (Late st Contact Info) Description 02/11/2025 1:05 PM EDT Hospital Encounter [facility] S Operating Room [address] [place] [phone] Abdelrahman Betancur MD [address] [place] [address] 02/11/2025 1:05 PM EDT Anesthesia Event [facility] Operating Room [address] [place] [phone] Evelyn Julian W, CHILDCARE PROVIDER [address] [facility] [address] [place] [address] 02/11/2025 1:05 PM EDT - 02/11/2025 3:30 PM EDT Surgery [facility] Operating Room [address] [place] [address] Abdelrahman Betancur MD [address] [place] [address] ARTHROPLASTY, HIP, TOTAL, ANTERIOR APPROACH [[id number] (CPT )] 02/26/2025 11:20 AM EDT Office Visit Medical Office Building Surgery Spine & Joint [address] [place] [address] Renetta Stoner PA [address] [place] [address] 03/06/2025 10:00 AM EDT Appointment Medical Office Building Cardiac Diagnostic Testing Medical Office Building Echo Lab [address] [place] [address] 03/06/2025 11:30 AM EDT Office Visit [facility] [place] [facility] [address] [facility], [address] [place] [address] Dian Yancey PA [address] [place] [address] 03/26/2025 11:10 AM EDT Office Visit Medical Office Building Surgery Spine & Joint [address] [facility], [address] [place] [address] Abdelrahman Betancur MD [address] [facility] 201 [place] [address] 04/02/2025 9:40 AM EDT Appointment [facility] Radiology [address] [place] [phone] 04/02/2025 10:30 AM EDT Appointment [facility] Radiology [address] [place] [address] 04/02/2025 1:15 PM EDT Clinical Support [facility] CC Head, Neck & Respiratory 800 [facility], [address] [place] [address] 04/02/2025 1:40 PM EDT Office Visit [facility] Head[facility] Neck & Respiratory [address] [phone] Rudolph Dillard MD [address] [phone] 04/08/2025 7:30 AM EDT Hospital Encounter [facility] Operating Room [address] [place] [address] Abdelrahman Betancur MD [address] [facility] 201 [place] [address] 04/08/2025 7:30 AM EDT - 04/08/2025 10:15 AM EDT Surgery [facility] Operating Room [address] [place] [address] Abdelrahman Betancur MD [address] [facility] 201 [place] [address] ARTHROPLASTY, HIP, TOTAL, ANTERIOR APPROACH [59839 (CPT )] 04/23/2025 11:00 AM EDT Office Visit Medical Office Building Surgery [facility] [address] [facility], [address] [place] [address] Renetta Stoner PA [address] [facility] 201 [place] [address] 05/21/2025 11:10 AM EST Office Visit Medical Office Building Surgery [facility] [address] [facility], [address] [place] [address] Abdelrahman Betancur MD [address] [facility] 201 [place] [address] 01/08/2026 2:00 PM EDT Appointment Medical Office Building Cardiac Diagnostic Testing Medical Office Building Echo Lab [address] [facility], [address] [place] [address] 01/08/2026 3:00 PM EDT Office Visit [facility] [place] [facility] [address] [facility], [address] [place] [address] Dian Yancey PA [address] [place] [address] Scheduled Procedures Name Priority Associated Diagnoses Date/Ti md ARTHROPLASTY, HIP, TOTAL, ANTERIOR APPROACH Arthritis of [...] documented as of this encounter Care Teams Lead Military Analyst Relationship Specialty Start Date End Date Wan Santoro MD 1210 [facility] [address] [place] [address] PCP - General 01/20/21 Dalton Hurley MD 800 [facility] [address] [place] [address] Consulting Physician Radiation Therapy 03/27/21 Geovanny Dominguez MD [address] [place] [address] Surgeon Neurosurgery 05/21/21 Rudolph Dillard MD [address] [address] Consulting Physician Medical Oncology 09/22/21 Abdiel Vargas APRN 800 [facility] [address] [place] [address] Nurse Practitioner Internal Medicine 04/09/22 Rodney Maria MD 1210 [facility] [address] [place], [place] [phone] Referring Physician 11/14/24 Brian Flores MD [address] [place] [address] Consulting Physician Cardiology 11/14/24 documented as of this encounter
--- OUTSIDE RECORDS SUMMARY | 2025-02-01 11:17 | XMS_ITS | Encounter Summary ---
Author Organization Healthcare Address [address] [place] [address] Care Team Providers Care Associate Dentist Name Role Phone Wan Santoro MD Primary Care Provider [phone] Dalton Hurley MD Unavailable [phone] Geovanny Dominguez MD Unavailable [phone] Rudolph Dillard MD Unavailable Abdiel Vargas APRN Unavailable [phone] Rodney Maria MD Unavailable [phone] Brian Flores MD Unavailable [phone] Encounter Details Date Type Department Care Team (Late st Contact Info) Description 11/29/2023 Orders Only External Location [address] [place] [phone] Provider, External Social History Tobacco Use Types Packs/Day Years [...] Hospital Encounter [facility] S Operating Room [address] [place] [address] Abdelrahman Betancur MD [address] [place] [address] 02/11/2025 1:05 PM EDT Anesthesia Event [facility] S Operating Room [address] [place] [address] Evelyn Julian W, CNMT [address] [place] [address] 02/11/2025 1:05 PM EDT - 02/11/2025 3:30 PM EDT Surgery [facility] S Operating Room [address] [place] [address] Abdelrahman [facility]ancur MD [address] [facility] 201 [place] [address] ARTHROPLASTY, HIP, TOTAL, ANTERIOR APPROACH [74938 (CPT )] 02/26/2025 11:20 AM EDT Office Visit Medical Office Building Surgery Sp[facility] & [facility] [address] [facility], [address] [place] [address] Renetta Stoner PA 125 [address] [facility] 201 [place] [address] 03/06/2025 10:00 AM EDT Appointment Medical Office Building Cardiac Diagnostic Testing Medical Office Building Echo Lab [address] [facility], [address] [place] [address] 03/06/2025 11:30 AM EDT Office Visit [facility] [place] [address] [facility], [address] [place] [address] Dian Yancey PA [address] [place] [address] 03/26/2025 11:10 AM EDT Office Visit Medical Office Building Surgery Spine & Joint [address] [facility], [address] [place] [address] Abdelrahman Betancur MD 125 [address] [facility] 201 [place] [address] 04/02/2025 9:40 AM EDT Appointment [facility] Radiology [address] [place] [address] 04/02/2025 10:30 AM EDT Appointment [facility] Radiology [address] [place] [address] 04/02/2025 1:15 PM EDT Clinical Support [facility] Res[facility] 800 [facility], 2nd [place] [address] 04/02/2025 1:40 PM EDT Office Visit [facility] 800 [facility], [address] [place] [address] Rudolph Dillard MD [address] [phone] 04/08/2025 7:30 AM EDT Hospital Encounter [facility] S Operating Room [address] [place] [address] Abdelrahman Betancur MD [address] [address] 04/08/2025 7:30 AM EDT - 04/08/2025 10:15 AM EDT Surgery [facility] S Operating Room [address] [place] [address] Abdelrahman Betancur MD 125 [address] [facility] 201 [place] [address] ARTHROPLASTY, HIP, TOTAL, ANTERIOR APPROACH [25106 (CPT )] 04/23/2025 11:00 AM EDT Office Visit Medical Office Building Surgery Spine & Joint [address] [facility], [address] [place] [address] Renetta Stoner PA [address] [place] [address] 05/21/2025 11:10 AM EST Office Visit Medical Office Building Surgery Spine & Joint [address] [facility], [address] [place] [address] Abdelrahman Betancur MD [address] [place] [address] 01/08/2026 2:00 PM EDT Appointment Medical Office Building Cardiac Diagnostic Testing Medical Office Building Echo Lab [address] [facility], [address] [place] [address] 01/08/2026 3:00 PM EDT Office Visit [facility] [place] [address] [facility], [address] [place] [address] Dian Yancey PA [address] [place] [address] Scheduled Procedures Name Priority Associated Diagnoses Date/Ti me ARTHROPLASTY, HIP, TOTAL, ANTERIOR APPROACH Arthritis of left hip 02/11/2025 1:05 PM EDT ARTHROPLASTY, HIP, TOTAL, ANTERIOR APPROACH Arthritis of right hip 04/08/2025 7:30 AM EDT documented as of this encounter Procedures Procedure Name Priority Date/Time Associated Diagnosis Comments XR MSK OUTSIDE IMAGES 11/29/2023 3:11 PM EDT documented in this encounter Results * XR MSK OUTSIDE IMAGES (11/29/2023 3:11 PM EDT) Anatomical Region Laterality Modality Radiographic Radha ging 11/29/2023 3:11 PM EDT us External Provider IMG XR PROCEDURES Final Result documented in this encounter Visit Diagnoses Not on filedocumented in this encounter Additional Health Concerns Assessment Noted Time PHQ-9 Depression Total Score: 0 01/28/20 21 1:00 PM EDT A fall risk assessment has been complete d for the patient 11/15/2023 12:09 PM EDT A Body Mass Index follow-up plan has been documented for the patient 08/18/2023 1:23 PM EST documented as of this encounter Care Teams Associate Dentist Relationship Specialty Start Date End Date Wan Santoro MD 1210 [facility] [address] [place] [address] PCP - General 01/20/21 Dalton Hurley MD 800 [facility] [address] [place] [address] Consulting Physician Radiation Therapy 03/27/21 Geovanny Dominguez MD [address] [place] [address] Surgeon Neurosurgery 05/21/21 Rudolph Dillard MD [address] [address] Consulting Physician Medical Oncology 09/22/21 Abdiel Vargas, CNMT [address] [place] [address] Nurse Practitioner Internal Medicine 04/09/22 Rodney Maria MD 1210 [facility] [address] [place] [address] Referring Physician 11/14/24 Brian Flores MD 800 [place] [address] Consulting Physician Cardiology 11/14/24 documented as of this encounter
--- OUTSIDE RECORDS SUMMARY | 2025-02-01 11:17 | XMS_ITS | Encounter Summary ---
Author Organization [facility] Address [address] [place] [address] Care Team Providers Care Negative Notcher Name Role Phone Wan Santoro MD Primary Care Provider [phone] Dalton Hurley MD Unavailable [phone] Geovanny Dominguez MD Unavailable [phone] Rudolph Dillard MD Unavailable [phone] Abdiel Vargas CERTIFIED HYPERBARIC TECHNOLOGIST Unavailable [phone] Rodney Maria MD Unavailable [phone] Brian Flores MD Unavailable [phone] Encounter Details Date Type Department Care Team (Late st Contact Info) Description 01/26/2021 Lab Requisition [facility] Lab 800 [place] [address] Rudolph Dillard MD [address] [address] Other nonspecific abnormal finding of [...] Encounter P[facility] S Operating Room [address] [place] [address] Abdelrahman Betancur MD [address] [facility] 201 [place] [address] 02/11/2025 1:05 PM EDT Anesthesia Event [facility] S Operating Room [address] [place] [address] Evelyn Julian W, CERTIFIED HYPERBARIC TECHNOLOGIST [address] [place] [address] 02/11/2025 1:05 PM EDT - 02/11/2025 3:30 PM EDT Surgery [facility] S Operating Room [address] [place] [address] Abdelrahman Betancur MD 125 [address] [facility] 201 [place] [address] ARTHROPLASTY, HIP, TOTAL, ANTERIOR APPROACH [27281 (CPT )] 02/26/2025 11:20 AM EDT Office Visit Medical Office Building Surgery Spine & Joint [address] [facility], [address] [place] [address] Renetta Stoner PA 125 [address] [facility] 201 [place] [address] 03/06/2025 10:00 AM EDT Appointment Medical Office Building Cardiac Diagnostic Testing Medical Office Building Echo Lab [address] [facility], [address] [place] [address] 03/06/2025 11:30 AM EDT Office Visit [facility] [place] [address] [facility], [address] [place] [address] Dian Yancey PA [address] [place] [address] 03/26/2025 11:10 AM EDT Office Visit Medical Office Building Surgery Spine & Joint [address] [facility], [address] [place] [address] Abdelrahman Betancur MD 125 [address] [facility] 201 [place] [address] 04/02/2025 9:40 AM EDT Appointment [facility] Radiology [address] [place] [address] 04/02/2025 10:30 AM EDT Appointment [facility] Radiology [address] [place] [address] 04/02/2025 1:15 PM EDT Clinical Support [facility] Res[facility] 800 [facility], 2nd [place] [address] 04/02/2025 1:40 PM EDT Office Visit [facility] 800 [facility], 2nd [place] [address] Rudolph Dillard MD [address] [address] 04/08/2025 7:30 AM EDT Hospital Encounter [facility] S Operating Room [address] [place] [address] Abdelrahman Betancur MD [address] [address] 04/08/2025 7:30 AM EDT - 04/08/2025 10:15 AM EDT Surgery [facility] S Operating Room [address] [place] [address] Abdelrahman Betancur MD 125 [address] [facility] 201 [place] [address] ARTHROPLASTY, HIP, TOTAL, ANTERIOR APPROACH [27840 (CPT )] 04/23/2025 11:00 AM EDT Office Visit Medical Office Building Surgery Sp[facility] 125 [address] [facility], [address] [place] [address] Renetta Stoner PA [address] [place] [address] 05/21/2025 11:10 AM EST Office Visit Medical Office Building Surgery [facility] [address] [facility], [address] [place] [address] Abdelrahman Betancur MD [address] [place] [address] 01/08/2026 2:00 PM EDT Appointment Medical Office Building Cardiac Diagnostic Testing Medical Office Building Echo Lab [address] [facility], [address] [place] [address] 01/08/2026 3:00 PM EDT Office Visit [facility] [place] [address] [facility], [address] [place] [address] Dian Yancey PA [address] [place] [address] Scheduled Procedures Name Priority Associated Diagnoses Date/Ti me ARTHROPLASTY, HIP, TOTAL, ANTERIOR APPROACH Arthritis of left hip 02/11/2025 1:05 PM EDT ARTHROPLASTY, HIP, TOTAL, ANTERIOR APPROACH Arthritis of right hip 04/08/2025 7:30 AM EDT documented as of this encounter Procedures Procedure Name Priority Date/Time Associated Diagnosis Comments SURGICAL PATHOLOGY CONSULT Routine 01/26/2021 10:53 AM EDT Other nonspecific abnormal finding of lung field documented in this encounter Results * Surgical Pathology Consult (01/26/2021 10:53 AM EDT) Case Report Sugical Pathology Consult Case: [id number] Authorizing Provider: Rudolph Dillard MD Collected: 01/26/20213 Ordering Location: [facility] Received: 01/26/2021 105 Pathologist: Fay Eagle MD Specimen: Lung, OU [id number] 01/26/2021 3:49 PM EDT [facility] Final Diagnosis A. LUNG, left upper lobe, mass, biopsy ([id number] A1- A2; collection date 01/12/2021): - benign bronchial epithelium and mucosa; See NOTE. - Negative for malignancy - no lung parenchyma identified to evaluate 01/26/2021 3:49 PM EDT [facility] at 1549 EDT Comment Sampling artifact cannot be excluded. Correlation with concurrent outside cytology, [id number] is suggested. 01/26/2021 3:49 PM EDT [facility]ALTH[facility]ARE LAB Clinical Information Left upper lobe lung masses with adenopathy, nonsmoker 01/26/2021 3:49 PM EDT [facility] Gross Description A. OU [id number] Received along with a corresponding pathology report from Pathology & Cytology Laboratory are 6 slide(s) labeled outside case: [id number] collected on 01/12/2021. 01/26/2021 3:49 PM EDT [facility] Tissue Lung structure / Unknown 01/26/2021 10:53 AM EDT 01/26/2021 10:53 AM EDT Rudolph Dillard MD LAB PATHOLOGY ORDERABLES Final Result [facility] [address] [place] [address] documented in this encounter Visit Diagnoses Diagnosis Other nonspecific abnormal finding of lung field Arthritis of left hip Arthritis of right hip documented in this encounter Care Teams Negative Notcher Relationship Specialty Start Date End Date Wan Santoro MD [facility]0 [facility] [address] [place] [address] PCP - General 01/20/21 Dalton Hurley MD [address] [facility] [address] [place] [address] Consulting Physician Radiation Therapy 03/27/21 Geovanny Dominguez MD 740 [address] [facility] [address] [place] [address] Surgeon Neurosurgery 05/21/21 Rudolph Dillard MD [address] [address] Consulting Physician Medical Oncology 09/22/21 Abdiel Vargas, CERTIFIED HYPERBARIC TECHNOLOGIST 800 [facility] [address] [place] [address] Nurse Practitioner Internal Medicine 04/09/22 Rodney Maria MD [address] [address] Referring Physician 11/14/24 Brian Flores MD [address] [place] [phone] Consulting Physician Cardiology 11/14/24 documented as of this encounter
--- OUTSIDE RECORDS SUMMARY | 2025-02-01 11:17 | XMS_ITS | Encounter Summary ---
Author Organization [facility] Address [address] [place] [address] Care Team Providers Care Crew Scheduler Name Role Phone Wan Santoro MD Primary Care Provider [phone] Dalton Hurley MD Unavailable [phone] Geovanny Dominguez MD Unavailable [phone] Rudolph Dillard MD Unavailable [phone] Abdiel Vargas APRN Unavailable [phone] Rodney Maria MD Unavailable [phone] Brian Flores MD Unavailable [phone] Encounter Details Date Type Department Care Team (Latest Contact Info) Description 12/27/2024 Travel Social History Tobacco Use Types Packs/Day [...] Mclean RN documented as of this encounter Plan of Treatment Upcoming Encounters Date Type Department Care Team (Late st Contact Info) Description 02/11/2025 1:05 PM EDT Hospital Encounter [facility] S Operating Room [address] [place] [address] Abdelrahman Betancur MD [address] [place] [address] 02/11/2025 1:05 PM EDT Anesthesia Event [facility] S Operating Room [address] [place] [address] Evelyn Julian W, JEWELRY MAKER [address] [place] [address] 02/11/2025 1:05 PM EDT - 02/11/2025 3:30 PM EDT Surgery [facility] S Operating Room [address] [place] [address] Abdelrahman Betancur MD [address] [place] [address] ARTHROPLASTY, HIP, TOTAL, ANTERIOR APPROACH [22345 (CPT )] 02/26/2025 11:20 AM EDT Office Visit Medical Office Building Surgery Sp[facility] [address] [place] [address] Renetta Stoner PA [address] [place] [address] 03/06/2025 10:00 AM EDT Appointment Medical Office Building Cardiac Diagnostic Testing Medical Office Building Echo Lab [address] [facility], [address] [place] [address] 03/06/2025 11:30 AM EDT Office Visit [facility] [place] [address] [facility], [address] [place] [address] Dian Yancey PA 800 [place] [address] 03/26/2025 11:10 AM EDT Office Visit Medical Office Building Surgery Spine & Joint [address] [facility], [address] [place] [address] Abdelrahman Betancur MD 125 [address] [facility] 201 [place] [address] 04/02/2025 9:40 AM EDT Appointment [facility] Radiology [address] [place] [address] 04/02/2025 10:30 AM EDT Appointment [facility] Radiology [address] [place] [address] 04/02/2025 1:15 PM EDT Clinical Support [facility] Head[facility] Neck [facility] Respiratory 800 [facility], 2nd [place] [address] 04/02/2025 1:40 PM EDT Office Visit [facility] Res[facility] 800 [facility], [address] [place] [address] Rudolph Dillard MD 800 [facility] 2nd [place] [address] 04/08/2025 7:30 AM EDT Hospital Encounter [facility] S Operating Room [address] [place] [address] Abdelrahman Betancur MD 125 [address] [facility] 201 [place] [address] 04/08/2025 7:30 AM EDT - 04/08/2025 10:15 AM EDT Surgery [facility] S Operating Room [address] [place] [address] Abdelrahman Betancur MD 125 [address] [facility] 201 [place] [address] ARTHROPLASTY, HIP, TOTAL, ANTERIOR APPROACH [57942 (CPT )] 04/23/2025 11:00 AM EDT Office Visit Medical Office Building Surgery Spine & Joint [address] [facility], [address] [place] [address] Renetta Stoner PA 125 [address] [facility] 201 [place] [address] 05/21/2025 11:10 AM EST Office Visit Medical Office Building Surgery [facility] [address] [facility], [address] [place] [address] Abdelrahman Betancur MD 125 [address] [facility] 201 [place] [address] 01/08/2026 2:00 PM EDT Appointment Medical Office Building Cardiac Diagnostic Testing Medical Office Building Echo Lab [address] [facility], [address] [place] [address] 01/08/2026 3:00 PM EDT Office Visit [facility] [place] [address] [facility], [address] [place] [address] Dian Yancey PA [address] [place] [address] Scheduled Procedures Name Priority Associated Diagnoses [...] documented as of this encounter Care Teams Crew Scheduler Relationship Specialty Start Date End Date Wan Santoro MD [address] [place] [address] PCP - General 01/20/21 Dalton Hurley MD 800 [facility] [address] [place] [address] Consulting Physician Radiation Therapy 03/27/21 Geovanny Dominguez MD 740 [facility] [address] [place] [address] Surgeon Neurosurgery 05/21/21 Rudolph Dillard MD [address] [address] Consulting Physician Medical Oncology 09/22/21 Abdiel Vargas, JEWELRY MAKER 800 [facility] [address] [place] [address] Nurse Practitioner Internal Medicine 04/09/22 Rodney Maria MD [address] [place] [address] Referring Physician 11/14/24 Brian Flores MD 800 [place] [address] Consulting Physician Cardiology 11/14/24 documented as of this encounter
--- OUTSIDE RECORDS SUMMARY | 2025-02-01 11:17 | XMS_ITS | Encounter Summary ---
Author Organization [facility] Address [address] [place] [address] Care Team Providers Care Counseling Department Chair Name Role Phone Wan Santoro MD Primary Care Provider Dalton Hurley MD Unavailable [phone] Geovanny Dominguez MD Unavailable [phone] Rudolph Dillard MD Unavailable [phone] Abdiel Vargas APRN Unavailable [phone] Rodney Maria MD Unavailable [phone] Brian Flores MD Unavailable [phone] Encounter Details Date Type Department Care Team (Late st Contact Info) Description 12/04/2024 Episode Changes [facility] [place] [address] [place] [address] [place] [address] Social History Tobacco Use Types Packs/Day Years [...] [facility] S Operating Room [address] [place] [address] Abdelrahman Betancur MD 125 [address] [facility] 201 [place] [address] 02/11/2025 1:05 PM EDT Anesthesia Event [facility] S Operating Room [address] [place] [address] Evelyn Julian W, CIGARETTE MAKING MACHINE HOPPER FEEDER [address] [facility] [address] [place] [address] 02/11/2025 1:05 PM EDT - 02/11/2025 3:30 PM EDT Surgery [facility] S Operating Room [address] [place] [address] Abdelrahman Betancur MD 125 [address] [facility] 201 [place] [address] ARTHROPLASTY, HIP, TOTAL, ANTERIOR APPROACH [52680 (CPT )] 02/26/2025 11:20 AM EDT Office Visit Medical Office Building Surgery Spine & Joint 125 [address] [facility], [address] [place] [address] Renetta Stoner PA 125 [address] [facility] 201 [place] [address] 03/06/2025 10:00 AM EDT Appointment Medical Office Building Cardiac Diagnostic Testing Medical Office Building Echo Lab [address] [facility], [address] [place] [address] 03/06/2025 11:30 AM EDT Office Visit [facility] [place] [address] [facility], [address] [place] [address] Dian Yancey PA 800 [place] [address] 03/26/2025 11:10 AM EDT Office Visit Medical Office Building Surgery Spine & Joint 125 [address] [facility], [address] [place] [address] Abdelrahman Betancur MD 125 [address] [facility] 201 [place] [address] 04/02/2025 9:40 AM EDT Appointment [facility] [address] [place] [address] 04/02/2025 10:30 AM EDT Appointment [facility] [address] [place] [address] 04/02/2025 1:15 PM EDT Clinical Support [facility] Res[facility] 800 [facility], 2nd [place] [address] 04/02/2025 1:40 PM EDT Office Visit [facility] 800 [facility], 2nd [place] [address] Rudolph Dillard MD [address] [address] 04/08/2025 7:30 AM EDT Hospital Encounter [facility] S Operating Room [address] [place] [address] Abdelrahman Betancur MD 125 [address] [facility] 201 [place] [address] 04/08/2025 7:30 AM EDT - 04/08/2025 10:15 AM EDT Surgery [facility] S Operating Room [address] [place] [address] Abdelrahman Betancur MD 125 [address] [facility] 201 [place] [address] ARTHROPLASTY, HIP, TOTAL, ANTERIOR APPROACH [98559 (CPT )] 04/23/2025 11:00 AM EDT Office Visit Medical Office Building Surgery Sp[facility] 125 [address] [facility], [address] [place] [address] Renetta Stoner PA [address] [place] [address] 05/21/2025 11:10 AM EST Office Visit Medical Office Building [facility] 125 [address] [facility], [address] [place] [address] Abdelrahman Betancur MD [address] [place] [address] 01/08/2026 2:00 PM EDT Appointment Medical Office Building Cardiac Diagnostic Testing Medical Office Building Echo Lab [address] [facility], [address] [place] [address] 01/08/2026 3:00 PM EDT Office Visit [facility] [place] [address] [facility], [address] [place] [address] Dian Yancey PA [address] [place] [address] Scheduled Procedures Name Priority Associated Diagnoses [...] has been complete d for the patient 11/19/2024 10:57 AM EDT A Body Mass Index follow-up plan has been documented for the patient 11/19/2024 11:40 AM EDT documented as of this encounter Care Teams Counseling Department Chair Relationship Specialty Start Date End Date Wan Santoro MD [address] [place] [address] PCP - General 01/20/21 Dalton Hurley MD 800 [facility] [address] [place] [address] Consulting Physician Radiation Therapy 03/27/21 Geovanny Dominguez MD [address] [facility] [address] [place] [address] Surgeon Neurosurgery 05/21/21 Rudolph Dillard MD [address] [address] Consulting Physician Medical Oncology 09/22/21 Abdiel Vargas, CIGARETTE MAKING MACHINE HOPPER FEEDER 800 [facility] [address] [place] [address] Nurse Practitioner Internal Medicine 04/09/22 Rodney Maria MD [address] [address] Referring Physician 11/14/24 Brian Flores MD 800 [place] [address] Consulting Physician Cardiology 11/14/24 documented as of this encounter
--- OUTSIDE RECORDS SUMMARY | 2025-02-01 11:18 | XMS_ITS ---
Author Organization [facility] Address [address] [place] [address] Care Team Providers Care Painter Name Role Phone Wan Santoro MD Primary Care Provider [phone] Dalton Hurley MD Unavailable [phone] Geovanny Dominguez MD Unavailable [phone] Rudolph Dillard MD Unavailable [phone] Abdiel Vargas APRN Unavailable [phone] Rodney Maria MD Unavailable [phone] Brian Flores MD Unavailable [phone] Active Problems Problem Noted Date Diagnosed Date Arthritis of left hip 01/04/2025 Nonrheumatic aortic valve stenosis 11/22/2024 BMI 29.0-29.9,adult 11/19/2024 Severe aortic stenosis 10/25/2024 Bone lesion 09/04/2024 Arthritis of right hip 08/23/2024 Arthritis 05/29/2024 Adenocarcinoma of left lung 06/23/2021 Cancer Staging:Pathologic stage from 01/12/2021:Stage KATHIA(cT3, pN2, pM1b) - Unsigned Flu vaccine need 05/01/2021 Malignant neoplasm metastatic to brain Overview (10/20/2022): Diagnosis replaced per IMO Regulatory Update October 16, 2022 Encounter for antineoplastic chemotherapy 2020 COVID-19 vaccination not done 02/17/2021 Essential hypertension 01/27/2021 Current Treatment and Therapy Plans No current plan information found. Past Treatment and Therapy Plans No past plan information found. Radiation Treatments * Course C1 04/19/2022 - 04/23/2022 Treatment Period Energy Fraction Dose Fractions Total Dose Plans Planned WILLIAM SBRT 04/19/2022 - 04/23/2022 1,800 cGy 3 / 3 5,400 cGy Reference Points Delivered WILLIAM SBRT 04/19/2022 - 04/23/2022 5,400 cGy Lifetime Dose Tracking * Chemical Lifetime Dose Automatic Entry Manual Entr y Fluoro Time 9.9 minutes 0 minutes 9.9 minutes Air Kerma 277 mGy 0 mGy 277 mGy Air Kerma Area Product 29,939 Gy-cm2 0 Gy-cm2 29,9 39 Gy-cm2 Resolved Problems Problem Noted Date Diagnosed Date Resolved Date Brain metabolic disorder 02/11/202109/2020 MRI of brain abnormal 02/11/20212020
--- OUTSIDE RECORDS SUMMARY | 2025-02-01 11:18 | XMS_ITS | Encounter Summary ---
Author Organization [facility] Address [address] [place] [address] Care Team Providers Care Lime Sludge Kiln Operator Name Role Phone Wan Santoro MD Primary Care Provider [phone] Dalton Hurley MD Unavailable [phone] Geovanny Dominguez MD Unavailable [phone] Rudolph Dillard MD Unavailable [phone] Abdiel Vargas APRN Unavailable [phone] Rodney Maria MD Unavailable [phone] Brian Flores MD Unavailable [phone] Encounter Details Date Type Department Care Team (Late st Contact Info) Description 01/01/2025 Telephone Medical Office Building Surgery Spine & Joint [address] [facility], [address] [place] [address] Abdelrahman Betancur MD [address] [place] [address] Social History Tobacco Use Types Packs/Day Years [...] encounter Miscellaneous Notes * Telephone Encounter - Cari Martínez RN - 01/07/2025 11:33 AM EDT Scheduled for surgery on 02/11/25 [facility]. * Telephone Encounter - Kala Haney RN - 01/01/2025 9:57 AM EDT Patient asked if her left hip could be performed before the right? documented in this encounter Plan of Treatment Upcoming Encounters Date Type Department Care Team (Late st Contact Info) Description 02/11/2025 1:05 PM EDT Hospital Encounter [facility] S Operating Room [address] [place] [phone] Abdelrahman Betancur MD [address] [facility] [address] [place] [address] 02/11/2025 1:05 PM EDT Anesthesia Event [facility] S Operating Room [address] [place] [phone] Evelyn Julian W, DE ICER ELEMENT WINDER [address] [facility] [address] [place] [address] 02/11/2025 1:05 PM EDT - 02/11/2025 3:30 PM EDT Surgery [facility] S Operating Room [address] [place] [address] Abdelrahman Betancur MD [address] [place] [address] ARTHROPLASTY, HIP, TOTAL, ANTERIOR APPROACH [[id number] (CPT )] 02/26/2025 11:20 AM EDT Office Visit Medical Office Building Surgery Spine & Joint [address] [facility], [address] [place] [phone] Renetta Stoner PA [address] [place] [address] 03/06/2025 10:00 AM EDT Appointment Medical Office Building Cardiac Diagnostic Testing Medical Office Building Echo Lab [address] [facility], [address] [place] [phone] 03/06/2025 11:30 AM EDT Office Visit [facility] [facility], [address] [place] [address] Dian Yancey PA [address] [place] [address] 03/26/2025 11:10 AM EDT Office Visit Medical Office Building Surgery Spine & Joint [address] [facility], [address] [place] [address] Abdelrahman Betancur MD [address] [facility] [address] [place] [address] 04/02/2025 9:40 AM EDT Appointment [facility] [address] [place] [phone] 04/02/2025 10:30 AM EDT Appointment [facility] [address] [place] [phone] 04/02/2025 1:15 PM EDT Clinical Support [facility] [address] [facility]nd [place] [phone] 04/02/2025 1:40 PM EDT Office Visit [facility] [address] [facility] [place] [phone] Rudolph Dillard MD [address] [address] 04/08/2025 7:30 AM EDT Hospital Encounter [facility] Operating Room [address] [place] [address] Abdelrahman Betancur MD [address] [facility] [address] [place] [address] 04/08/2025 7:30 AM EDT - 04/08/2025 10:15 AM EDT Surgery [facility] Operating Room [address] [place] [address] Abdelrahman Betancur MD [address] [facility] [address] [place] [address] ARTHROPLASTY, HIP, TOTAL, ANTERIOR APPROACH [[id number] (CPT )] 04/23/2025 11:00 AM EDT Office Visit Medical Office Building Surgery Spine & Joint [address] [facility], [address] [place] [address] Renetta Stoner PA [address] [facility] [address] [place] [address] 05/21/2025 11:10 AM EST Office Visit Medical Office Building Surgery Spine & Joint [address] [facility], [address] [place] [address] Abdelrahman Betancur MD [address] [facility] [address] [place] [address] 01/08/2026 2:00 PM EDT Appointment Medical Office Building Cardiac Diagnostic Testing Medical Office Building Echo Lab [address] [facility], [address] [place] [address] 01/08/2026 3:00 PM EDT Office Visit [facility] [address] [facility], [address] [place] [address] Dian Yancey PA [address] [place] [phone] Scheduled Procedures Name Priority Associated Diagnoses [...] documented as of this encounter Care Teams Lime Sludge Kiln Operator Relationship Specialty Start Date End Date Wan Santoro MD [address] [facility] [address] [place] [address] PCP - General 01/20/21 Dalton Hurley MD [address] [facility] [address] [place] [address] Consulting Physician Radiation Therapy 03/27/21 Geovanny Dominguez MD [address] [place] [address] Surgeon Neurosurgery 05/21/21 Rudolph Dillard MD [address] [address] Consulting Physician Medical Oncology 09/22/21 Abdiel Vargas, PRERNA [address] [facility] [address] [place] [address] Nurse Practitioner Internal Medicine 04/09/22 Rodney Maria MD [address] [place] [address] Referring Physician 11/14/24 Brian Flores MD [address] [place] [phone] Consulting Physician Cardiology 11/14/24 documented as of this encounter
--- OUTSIDE RECORDS SUMMARY | 2025-02-01 11:18 | XMS_ITS | Clinical Summary ---
Author Organization [facility] Address [address] [place] [address] Care Team Providers Care Traffic Sergeant Name Role Phone Wan Santoro MD Primary Care Provider [phone] Dalton Hurley MD Unavailable [phone] Geovanny Dominguez MD Unavailable [phone] Rudolph Dillard MD Unavailable [phone] Abdiel Vargas APRN Unavailable [phone] Rodney Maria MD Unavailable [phone] Brian Flores MD Unavailable [phone] Allergies No known active allergies Medications lisinopril-hydr oCHLOROthiazide 20-12.5 MG tablet Take 2 tablets by mouth daily. Active amLODIPine (Norvasc) 5 MG tablet Take 1 tablet by mouth daily. Active potassium chloride CR (Klor-Con) 10 MEQ ER tablet Take 1 tablet by mouth daily. Do not crush, chew, or split. Active aspirin 81 MG EC tablet Take 1 tablet by mouth daily. Active meloxicam (Mobic) 15 MG tablet Take 1 tablet by mouth daily. 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 ([facility]) 01/25/2025 Orders Only Medical Office Building Surgery Spine & Joint [address], [address] [place] [address] Abdelrahman Betancur MD Arthritis of right hip (Primary Dx) 01/23/2025 3:30 PM EDT Pre-Admission Testing P[facility] S Anesthesia [address] [place] [address] 01/23/2025 Travel 01/04/2025 Orders Only Medical Office Building Surgery Spine & Joint [address] [facility], [address] [place] [address] Abdelrahman Betancur MD 01/01/2025 Telephone Medical Office Building Surgery Spine & Joint [address] [facility], [address] [place] [address] Abdelrahman Betancur MD 12/28/2024 Travel 12/27/2024 10:00 AM EDT - 12/27/2024 12:00 PM EDT Surgery Cardiac Video Systems Engineer [address] [place] [address] Brian Flores MD TAVR [20305 (CPT )] 12/27/2024 9:54 AM EDT Anesthesia Event Cardiac Video Systems Engineer [address] [place] [address] Glynn eBlla MD Bliss, Emily G, MD 12/27/2024 8:00 AM EDT - 12/28/2024 1:15 PM EDT Hospital Encounter P[facility] H Inpatient [address] [place] [address] Brian Flores MD S/P TAVR (transcatheter aortic valve replacement) (Primary Dx); Nonrheumatic aortic valve stenosis Discharge Disposition: Home or Self Care 12/27/2024 Travel 12/24/2024 Telephone Pav CC Head, Neck & Respiratory [address] [facility], [address]nd [place] [address] Juancarlos Bal RN 12/20/2024 Travel 12/11/2024 2:40 PM EDT Office Visit Pav CC Head, Neck & Respiratory [address] [facility], [address] [place] [address] Rudolph Dillard MD 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) (Primary Dx); Adenocarcinoma of left lung (CMS/HCC); Severe aortic stenosis; Arthritis of right hip; Encounter for antineoplastic chemotherapy 12/11/2024 1:56 PM EDT - 12/11/2024 11:59 PM EDT Hospital Encounter [facility] Radiology [address] [place] [address] 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); Adenocarcinoma of left lung (CMS/HCC) Discharge Disposition: Home or Self Care 12/11/2024 12:21 PM EDT - 12/11/2024 1:55 PM EDT Hospital Encounter [facility] Radiology [address] [place] [address] 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); Adenocarcinoma of left lung (CMS/HCC) Discharge Disposition: Home or Self Care 12/11/2024 11:30 AM EDT Clinical Support Pav CC Head, Neck & Respiratory [address] [facility]nd [place] [address] 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); Encounter for antineoplastic chemotherapy; Adenocarcinoma of left lung (CMS/HCC) 12/11/2024 Orders Only Pav CC Head, Neck & Respiratory [address] [facility], [address]nd [place] [address] Juancarlos Bal RN 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) (Primary Dx); Encounter for antineoplastic chemotherapy; Adenocarcinoma of left lung (CMS/HCC) 12/11/2024 Travel 12/04/2024 Episode Changes [facility] [place] [address] [place] [address] Therese Barrow 11/22/2024 Telephone Medical Office Building Surgery Spine & Joint [address] [facility], [address] [place] [address] Abdelrahman Betancur MD HCN - Patient Message 11/19/2024 11:40 AM EDT Consult [facility] [address], [address] [place] [address] Gladys Lopze MD Severe aortic stenosis 11/19/2024 8:50 AM EDT - 11/19/2024 11:59 PM EDT Hospital Encounter [facility] Radiology [address] [place] [address] Severe aortic stenosis Discharge Disposition: Home or Self Care 11/19/2024 Travel 11/12/2024 Travel from Last 3 Months Family History Medical History Relation Name Comments Liver cancer Brother Lung cancer Brother Lung cancer Father Cervical cancer Mother Anesthesia problems Neg Hx Malig Hyperthermia Neg Hx Relation Name Status Comments Brother Father Mother Social History Tobacco Use Types Packs/Day Years Used Date Smoking Tobacco: Never Smokeless Tobacco: Never Tobacco Cessation:Counseling Given: Not Answered Alcohol Use Standard Drinks/Week Comments Never 0 [...] on file Sexual Orientation Not on file Last Filed Vital Signs Vital Sign Reading [...] Mass Index 29.94 12/27/2024 8:20 AM EDT Plan of Treatment Upcoming Encounters Date Type Department Care Team (Late st Contact Info) Description 02/11/2025 1:05 PM EDT Hospital Encounter [facility] Operating Room [address] [place] [address] Abdelrahman Betancur MD [address] [place] [address] 02/11/2025 1:05 PM EDT Anesthesia Event [facility] Operating Room [address] [place] [address] Evelyn Julian, STORE RECEIVER [address] [facility] [address] [place] [address] 02/11/2025 1:05 PM EDT - 02/11/2025 3:30 PM EDT Surgery [facility] S Operating Room [address] [place] [address] Abdelrahman Betancur MD [address] [place] [address] ARTHROPLASTY, HIP, TOTAL, ANTERIOR APPROACH [88642 (CPT )] 02/26/2025 11:20 AM EDT Office Visit Medical Office Building Surgery Spine & Joint [address], [address] [place] [address] Renetta Stoner PA [address] [place] [address] 03/06/2025 10:00 AM EDT Appointment Medical Office Building Cardiac Diagnostic Testing Medical Office Building Echo Lab [address] [facility], [address] [place] [address] 03/06/2025 11:30 AM EDT Office Visit [facility] [place] [address], [address] [place] [address] Dian Yancey PA [address] [place] [address] 03/26/2025 11:10 AM EDT Office Visit Medical Office Building Surgery Spine & Joint [address] [facility], [address] [place] [address] Abdelrahman Betancur MD [address] [facility] [address] [place] [address] 04/02/2025 9:40 AM EDT Appointment [facility] Radiology [address] [place] [address] 04/02/2025 10:30 AM EDT Appointment [facility] Radiology [address] [place] [address] 04/02/2025 1:15 PM EDT Clinical Support Pav CC Head, Neck & Respiratory [address] [facility], [address]nd [place] [address] 04/02/2025 1:40 PM EDT Office Visit Pav CC Head, Neck & Respiratory [address] [facility], [address]nd [place] [address] Rudolph Dillard MD [address] [phone] 04/08/2025 7:30 AM EDT Hospital Encounter [facility] S Operating Room [address] [place] [address] Abdelrahman Betancur MD [address] [place] [address] 04/08/2025 7:30 AM EDT - 04/08/2025 10:15 AM EDT Surgery [facility] S Operating Room [address] [place] [address] Abdelrahman Betancur MD [address] [place] [address] ARTHROPLASTY, HIP, TOTAL, ANTERIOR APPROACH [55804 (CPT )] 04/23/2025 11:00 AM EDT Office Visit Medical Office Building Surgery [facility] [address], [address] [place] [address] Renetta Stoner PA [address] [place] [address] 05/21/2025 11:10 AM EST Office Visit Medical Office Building Surgery [facility] [address], [address] [place] [address] Abdelrahman Betancur MD [address] [place] [address] 01/08/2026 2:00 PM EDT Appointment Medical Office Building Cardiac Diagnostic Testing Medical Office Building Echo Lab [address], [address] [place] [address] 01/08/2026 3:00 PM EDT Office Visit [facility] [place] [address], [address] [place] [address] Dian Yancey, PA [address] [place] [address] Scheduled Procedures Name Priority Associated Diagnoses Date/Ti me ARTHROPLASTY, HIP, TOTAL, ANTERIOR APPROACH Arthritis of left hip 02/11/2025 1:05 PM EDT ARTHROPLASTY, HIP, TOTAL, ANTERIOR APPROACH Arthritis of right hip 04/08/2025 7:30 AM EDT Health Maintenance Due Date Last Done Comments [facility]-Bone Density Scan 1955 [facility]-Hepatitis C Screening 1955 [facility]-Medicare Annual Wellness (AWV) 1955 [facility]-Infant/Child/Adol SDOH Screenings 1955 [id number] Vaccine (#1) 09/18/1959 [facility]- SDOH Screenings 1972 [facility]-Adult SDOH Screenings 1972 [facility]-Pneumococcal Vaccine: 50+ Years (1 of 2 - PCV) 1973 [facility]-Zoster Vaccines (1 of 2) 1973 CT Colonography 09/18/1999 Colonoscopy 09/18/1999 FIT-DNA 09/18/1999 FIT 09/18/1999 FOBT 09/18/1999 Sigmoidoscopy 09/18/1999 [facility]-Colorectal Cancer Screening 09/18/1999 [facility]-RSV Vaccine: 60+ Years or (1 - Risk 60-74 years 1-dose series) 2014 [facility]-Influenza Vaccine (#1) 2025 [facility]-Depression Screening 10/29/2025 10/29/2024, 10/16 [facility]-Breast Cancer Screening 10/25/202610/16, 10/25/2024, 10/10/2023, Additional history exists [facility]-DTaP,Tdap,and Td Vaccines (2 - Td or Tdap) 12/03/2031 12/02/2021 [facility]-Obesity Intervention Completed 025, 11/19/2024, 10/29/2024, Additional history exists HPV Vaccines Aged Out No longer eligi ble based on patient's age to complete this topic [facility]-HIB Vaccines Aged Out No longer e ligible based on patient's age to complete this topic [facility]-Hepatitis A Vaccines Aged Out No longer eligible based on patient's age to complete this topic [facility]-IPV Vaccines Aged Out No longer e ligible based on patient's age to complete this topic [facility]-Rotavirus Vaccines Aged Out No lo nger eligible based on patient's age to complete this topic Goals Goal Patient Goal Type Associated Problems Recent Progress Patient-Stated? Author Autogenerat ed Goal Care Plan Autogenerated Problem No HrLatisha noble Autogenerat ed Goal Care Plan Autogenerated Problem No HrivLatisha kearney Medical Devices Implanted Type Area Yarn Preparation Supervisor Device Identifier Shelf Expiration Date Model / Serial / Lot Valve Kit Kerry 3 Ultra Tavr 23mm - [id number] - [id number] Implanted:Qty: 1 on 12/27/2024 by Brian Flores MD at [facility]-[id number] 07/30/2027 [id number] / [id number] / [id number] Procedures Procedure Name Priority Date/Time Associated Diagnosis Comments ECHO, ADULT TRANSTHORACIC LIMITED W/ COLOR AND DOPPLER Timed 12/28/2024 7:35 AM EDT MAGNESIUM, PLASMA Routine 12/28/2024 4:5 6 AM EDT BASIC METABOLIC PANEL, PLASMA Routine 12/28/2024 4:56 AM EDT CBC W/O DIFFERENTIAL Routine 12/28/2024 4:56 AM EDT ECG ADULT Routine 12/28/2024 2:41 AM EDT XR CHEST 1 VIEW Routine 12/28/2024 2:41 AM EDT BASIC METABOLIC PANEL, PLASMA Routine 12/27/2024 1:09 PM EDT CBC W/O DIFFERENTIAL Routine 12/27/2024 1:09 PM EDT ECG ADULT [...] UNSOLICITED RESULTS Routine 12/27/2024 8:29 AM EDT TYPE AND SCREEN Routine 12/27/2024 8:24 AM EDT N-TERMINAL PROBNP, PLASMA STAT 12/27/2024 8:24 AM EDT BASIC METABOLIC PANEL, PLASMA STAT 12/27/2024 8:24 AM EDT CBC W/O DIFFERENTIAL STAT 12/27/2024 8:[address] CHEST W IV CONTRAST Routine 12/11/2024 2:40 PM EDT 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) Adenocarcinoma of left lung (CMS/HCC) MR HEAD W AND WO IV CONTRAST Routine 12/11/2024 2:01 PM EDT 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) Adenocarcinoma of left lung (CMS/HCC) COMPREHENSIVE METABOLIC PANEL, PLASMA Routine 12/11/2024 11:41 AM EDT 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) Encounter for antineoplastic chemotherapy Adenocarcinoma of left lung (CMS/HCC) CBC WITH AUTO DIFFERENTIAL Routine 12/11/2024 11:41 AM EDT 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) Encounter for antineoplastic chemotherapy Adenocarcinoma of left lung (CMS/HCC) CT ANGIO CHEST Routine 11/19/2024 10:08 AM EDT Severe aortic stenosis CT ANGIO ABDOMEN PELVIS Routine 11/19/2024 10:08 AM EDT Severe aortic stenosis from Last 3 Months Results * ECHO, ADULT TRANSTHORACIC LIMITED W/ [...] of high cardiac output. us Kaleb Bond STORE RECEIVER CV ECHO PROCEDURES Final Re sult * (ABNORMAL) CBC (12/28/2024 4:56 AM EDT) Only the most recent of3 resultswithin the time period is included. WBC Count 8.36 3.70 - 10.30 10*3/uL LAB HEMATOLOGY METHOD 12/28/2024 5:15 AM EDT [facility] RBC Count 3.29(L) 3.90 - 5.20 10*6/uL LAB HEMATOLOGY METHOD 12/28/2024 5:15 AM EDT [facility] HGB 10.0(L) 11.2 - 15.7 g/dL LAB HEMATOLOGY METHOD 12/28/2024 5:15 AM EDT [facility] HCT 30.3(L) 34.0 - 45.0 % LAB HEMATOLOGY METHOD 12/28/2024 5:15 AM EDT [facility] Platelet Count 122(L) 155 - 369 10*3/uL LAB HEMATOLOGY METHOD 12/28/2024 5:15 AM EDT [facility] MCV 92 79 - 98 fL LAB HEMATOLOGY METHOD 12/28/2024 5:15 AM EDT [facility] MCH 30.4 26.0 - 32.0 pg LAB HEMATOLOGY METHOD 12/28/2024 5:15 AM EDT [facility] MCHC 33.0 30.7 - 35.5 g/dL LAB HEMATOLOGY METHOD 12/28/2024 5:15 AM EDT [facility] RDW 13.5 11.5 - 14.5 % LAB HEMATOLOGY METHOD 12/28/2024 5:15 AM EDT [facility] MPV 10.8 8.8 - 12.5 fL LAB HEMATOLOGY METHOD 12/28/2024 5:15 AM EDT [facility] nRBC 0.0 <=0.0 per 100 WBCs LAB HEMATOLOGY METHOD 12/28/2024 5:15 AM EDT [facility] Blood Venous blood specimen / Unknown Venipuncture / Unknown 12/28/2024 4:56 AM EDT 12/28/2024 5:03 AM EDT Kaleb Bond APRN LAB BLOOD ORDERABLES Final Result [facility] [address] [place] [address] * (ABNORMAL) Magnesium (12/28/2024 4:56 AM EDT) Magnesium, Plasma 1.6(L) 1.9 - 2.4 mg/dL 12/28/2024 5:33 AM EDT [facility] Blood Venous blood specimen / Unknown Venipuncture / Unknown 12/28/2024 4:56 AM EDT 12/28/2024 5:02 AM EDT Kaleb Bond APRN LAB BLOOD ORDERABLES Final Result Performing Organization Address City/[facility]/ZIP Co de Phone Number [facility] [address] [place] [address] * Basic metabolic panel (12/28/2024 4:56 AM EDT) Only the most recent of3 resultswithin the time period is included. Glucose, Plasma 99 74 - 99 mg/dL 12/28/2024 5:33 AM EDT [facility] BUN, Plasma 20 8 - 23 mg/dL 12/28/2024 5:33 AM EDT [facility] Creatinine, Plasma 0.83 0.60 - 1.10 mg/dL 12/28/2024 5:33 AM EDT [facility] BUN/Creatinine Ratio 24 12/28/2024 5:33 AM EDT [facility] Sodium, Plasma 140 136 - 145 mmol/L 12/28/2024 5:33 AM EDT [facility] Potassium, Plasma 4.1 3.6 - 4.9 mmol/L 12/28/2024 5:33 AM EDT [facility] Chloride, Plasma 106 97 - 107 mmol/L 12/28/2024 5:33 AM EDT [facility] CO2, Plasma 23 22 - 29 mmol/L 12/28/2024 5:33 AM EDT [facility] Anion Gap 11 6 - 16 mmol/L 12/28/2024 5:33 AM EDT [facility] Total Calcium, Plasma 8.9 8.9 - 10.2 mg/dL 12/28/2024 5:33 AM EDT [facility] eGFRcr 75.9 mL/min/1.7 3m*2 12/28/2024 5:33 AM EDT [facility] Comment:Reported eGFRcr in m L/min/1.73m2 is based the CKD-EPI 2020 equation that does not use a race coefficient. Blood Venous blood specimen / Unknown Venipuncture / Unknown 12/28/2024 4:56 AM EDT 12/28/2024 5:02 AM EDT us Kaleb Bond APRN LAB BLOOD ORDERABLES Final Result Performing Organization Address City/[facility]/ZIP Co de Phone Number [facility] [address] [place] [address] * ECG Adult - POD#1 (12/28/2024 2:41 AM EDT) Only the most recent of2 resultswithin the time period is included. EKG DIAGNOSIS CLASS Abnormal MUSE ECG Ventricular Rate 85 BPM MUSE ECG Atrial Rate 85 BPM MUSE ECG NE Interval 150 ms MUSE ECG QRSD Interval 90 ms MUSE ECG QT Interval 386 ms MUSE ECG QTC Interval 459 ms MUSE ECG P [place] -1 degrees MUSE ECG R [place] -36 degrees MUSE ECG T Wave [place] 20 degrees MUSE ECG Diagnosis Normal sinus [...] IMG XR PROCEDURES Final Res ult * ECHO, ADULT TRANSTHORACIC LIMITED W/ COLOR [...] appropriately positioned transcatheter bioprosthetic valve (23 mm Kerry 3) that is well-seated. There is no [...] is no recent study available for direct [id number] comparison. Left Ventricle The left ventricle is normal size. The left ventricular systolic function is hyperdynamic with an estimated left ventricular ejection fraction of >70%. Mitral Valve There is physiologic amount of mitral regurgitation. Aortic Valve There is a appropriately positioned transcatheter bioprosthetic valve (23 mm Kerry 3) that is well-seated. There is no [...] is no recent study available for direct [id number] comparison. us Brian Flores MD CV ECHO PROCEDURES Final R esult * TAVR (12/27/2024 11:12 AM EDT) Anatomical Region Laterality Modality Other Narrative 12/27/2024 11:27 AM EDT Successful transfemoral transcatheter aortic valve replacement with a 23 mm Kerry S3 Ultra valve 1) Admit to the [...] transcatheter aortic valve replacement with 23 mm Kerry S3 Ultra valve Procedure Indication: The patient [...] was obtained: 1) Right common femoral vein: 8-Namibian short Terumo sheath 2) Right common femoral artery: 6-Namibian short Terumo sheath 3) Left common femoral artery: 7-Namibian short Terumo sheath The 6-Namibian right common femoral arterial sheath was upsized to an 8-Namibian sheath after 2 Preclose sutures were deployed. Heparin was given for a goal ACT>250. Antibiotics were given. The 8-Namibian right femoral arterial sheath was upsized to the 14-Namibian Zavala sheath over a Safari wire. A temporary pacemaker wire was advanced from the venous sheath to the right ventricular apex. Thresholds were tested and confirmed to be adequate. A 6-Namibian angled pigtail catheter was inserted from the left common femoral arterial sheath to the right coronary cusp. An aortogram was performed to confirm the correct coplanar angle. The aortic valve was crossed from the E-sheath using an exchange-length J-tip wire and a 6-Namibian AL1 diagnostic catheter. The AL1 catheter was removed and a 6- Namibian angled pigtail catheter was advanced over the wire to the left ventricular apex. The pigtail catheter was then removed over an extra-small Safari wire. The 23 mm Kerry S3 Ultra valve was prepped on the [...] Phase: Resting Aortic AO: 113/49 (74) mmHg Brian Flores MD CV CARDIAC CATH PROCEDURES Final Result * POCT ACT (12/27/2024 10:32 AM EDT) ACT (Low Range) 336 65 - 400 seconds 01/21/2025 9:15 AM EDT HEALTHCARE LAB Real Estate Closer ID Bertha Franz 01/21/2025 9:15 AM EDT [facility] ACT Device ID [id number] 01/21/2025 9:15 AM EDT HEALTHCARE LAB Comment 01/21/2025 9:15 AM EDT [facility] Comment: ACT performed by [...] TEST DOCKED DEVICE UNSOLICITED RESULTS Final Result [facility] [address] LAB [address] [place] [address] * POCT creatinine (12/27/2024 8:29 AM EDT) Creatinine, Point of Care 1.0 0.6 - 1.1 mg/dL 12/27/2024 8:33 AM EDT HEALTHCARE LAB POCT eGFR 61 mL/min/1. 73m*2 12/27/2024 8:33 AM EDT HEALTHCARE LAB Real Estate Closer ID Nela Perez 12/27/2024 8:33 AM EDT HEALTHCARE LAB Device ID [id number] 12/27/2024 8:33 AM EDT HEALTHCARE LAB Comment 12/27/2024 8:33 AM EDT [facility] Comment:Testing performed on i-STAT at the point of care. Reported eGFRcr in mL/min/1.73m2 is based the CKD-EPI 2020 equation that does not use a race coefficient. Blood Venous blood specimen / Unknown 12/27/2024 8:29 AM EDT 12/27/2024 8:33 AM EDT us Brian Flores MD LAB POINT OF CARE TEST DOCKED DEVICE UNSOLICITED RESULTS Final Result Performing Organization Address City/[facility]/ZIP Co de Phone Number [facility] [address] LAB [address] [place] [address] * N-Terminal Probnp (12/27/2024 8:24 AM EDT) N-Terminal, PROBNP, Plasma 348 0 - 899 pg/mL 12/27/2024 9:14 AM EDT [facility] Blood Venous blood specimen / Unknown Venipuncture / Unknown 12/27/2024 8:24 AM EDT 12/27/2024 8:34 AM EDT us Dat Dickson APRN LAB BLOOD ORDERABLES Final Result [facility] [address] [place] [address] * Type and Screen (12/27/2024 8:24 AM [...] TEST ORDERABLES Final Result BLOOD BANK [address] [place] [address], * CT Chest w IV Contrast (12/11/2024 [...] signing this report, I, the attending physician, attestthat I have personally reviewed the images/data for the aboveexamination(s) and agree with the final edited report. Drafted by Zach Islas DO on 12/11/2024 2:59 PM Final report signed by Maximiliano Nolan MD on 12/11/2024 3:10 PM us Abdiel Vargas STORE RECEIVER IMG CT PROCEDURES Final Resul t * MR Head w and wo IV [...] error, please notify the sender immediately at [phone] and permanently delete the original report and destroy any copies or printouts. Narrative 12/12/2024 2:15 PM EDT [facility] - Phone Outpatient NAME: Priya Lynn DATE OF EXAM: 12/11/2024 Patient No: [id number] Physician: Kuldeep Date of : 1955 Past [...] Mahmood MD - 12/12/2024 [facility] - Phone Outpatient NAME: Priya Lynn DATE OF EXAM: 12/11/2024 Patient No: [id number] Physician: Kuldeep Date of : 1955 Past [...] in error, pleasenotify the sender immediately at [phone] and permanently delete theoriginal report and destroy any copies or printouts. Abdiel Vargas APRN IMG MRI PROCEDURES Final Resu lt * (ABNORMAL) CBC and Differential (12/11/2024 11:41 AM EDT) WBC Count 7.47 3.70 - 10.30 10*3/uL LAB HEMATOLOGY METHOD 12/11/2024 12:34 PM EDT [facility] RBC Count 3.74(L) 3.90 - 5.20 10*6/uL LAB HEMATOLOGY METHOD 12/11/2024 12:34 PM EDT [facility] HGB 11.4 11.2 - 15.7 g/dL LAB HEMATOLOGY METHOD 12/11/2024 12:34 PM EDT [facility] HCT 34.1 34.0 - 45.0 % LAB HEMATOLOGY METHOD 12/11/2024 12:34 PM EDT [facility] Platelet Count 157 155 - 369 10*3/uL LAB HEMATOLOGY METHOD 12/11/2024 12:34 PM EDT [facility] MCV 91 79 - 98 fL LAB HEMATOLOGY METHOD 12/11/2024 12:34 PM EDT [facility] MCH 30.5 26.0 - 32.0 pg LAB HEMATOLOGY METHOD 12/11/2024 12:34 PM EDT [facility] MCHC 33.4 30.7 - 35.5 g/dL LAB HEMATOLOGY METHOD 12/11/2024 12:34 PM EDT [facility] RDW 13.6 11.5 - 14.5 % LAB HEMATOLOGY METHOD 12/11/2024 12:34 PM EDT [facility] MPV 10.7 8.8 - 12.5 fL LAB HEMATOLOGY METHOD 12/11/2024 12:34 PM EDT [facility] nRBC 0.0 <=0.0 per 100 WBCs LAB HEMATOLOGY METHOD 12/11/2024 12:34 PM EDT [facility] Differential Type Automated LAB HEMATOLOGY METHOD 12/11/2024 12:34 PM EDT [facility] Neutrophils % 77 % LAB HEMATOLOGY METHOD 12/11/2024 12:34 PM EDT [facility] Lymphocytes % 15 % LAB HEMATOLOGY METHOD 12/11/2024 12:34 PM EDT [facility] [facility] Monocytes % 6 % LAB HEMATOLOGY METHOD 12/11/2024 12:34 PM EDT [facility] Eosinophils % 2 % LAB HEMATOLOGY METHOD 12/11/2024 12:34 PM EDT [facility] Basophils % 0 % LAB HEMATOLOGY METHOD 12/11/2024 12:34 PM EDT [facility] Immature Granulocytes % 0 % LAB HEMATOLOGY METHOD 12/11/2024 12:34 PM EDT [facility] Neutrophils Absolute 5.71 1.60 - 6.10 10*3/uL LAB HEMATOLOGY METHOD 12/11/2024 12:34 PM EDT [facility] Lymphocytes Absolute 1.10(L) 1.20 - 3.90 10*3/uL LAB HEMATOLOGY METHOD 12/11/2024 12:34 PM EDT [facility] Monocytes Absolute 0.47 0.30 - 0.90 10*3/uL LAB HEMATOLOGY METHOD 12/11/2024 12:34 PM EDT [facility] Eosinophils Absolute 0.14 0.00 - 0.50 10*3/uL LAB HEMATOLOGY METHOD 12/11/2024 12:34 PM EDT [facility] Basophils Absolute 0.02 0.00 - 0.10 10*3/uL LAB HEMATOLOGY METHOD 12/11/2024 12:34 PM EDT [facility] Immature Granulocytes Absolute 0.03 0.00 - 0.06 10*3/uL LAB HEMATOLOGY METHOD 12/11/2024 12:34 PM EDT [facility] Blood Venous blood specimen / Unknown Venipuncture / Unknown 12/11/2024 11:41 AM EDT 12/11/2024 12:26 PM EDT Narrative [facility] - 12/11/2024 12:34 PM EDT Therapeutic decision making should be based on absolute values, rather than percentages. us Rudolph Dillard MD LAB BLOOD ORDERABLES Final Res ult [facility] [address] [place] [address] * (ABNORMAL) Comprehensive Metabolic Panel, Plasma (12/11/2024 11:41 AM EDT) Glucose, Plasma 83 74 - 99 mg/dL 12/11/2024 12:52 PM EDT [facility] BUN, Plasma 21 8 - 23 mg/dL 12/11/2024 12:52 PM EDT [facility] Creatinine, Plasma 0.84 0.60 - 1.10 mg/dL 12/11/2024 12:52 PM EDT [facility] BUN/Creatinine Ratio 25 12/11/2024 12:52 PM EDT [facility] Sodium, Plasma 140 136 - 145 mmol/L 12/11/2024 12:52 PM EDT [facility] Potassium, Plasma 3.5(L) 3.6 - 4.9 mmol/L 12/11/2024 12:52 PM EDT [facility] Chloride, Plasma 106 97 - 107 mmol/L 12/11/2024 12:52 PM EDT [facility] CO2, Plasma 21(L) 22 - 29 mmol/L 12/11/2024 12:52 PM EDT [facility] Anion Gap 13 6 - 16 mmol/L 12/11/2024 12:52 PM EDT [facility] Total Calcium, Plasma 9.4 8.9 - 10.2 mg/dL 12/11/2024 12:52 PM EDT [facility] Total Protein 6.5 6.3 - 7.9 g/dL 12/11/2024 12:52 PM EDT [facility] Albumin, Plasma 4.0 3.5 - 5.2 g/dL 12/11/2024 12:52 PM EDT [facility] AST, Plasma 20 10 - 35 U/L 12/11/2024 12:52 PM EDT [facility] Comment:Hemolyzed, result ma y be falsely increased. ALT, Plasma 13 10 - 35 U/L 12/11/2024 12:52 PM EDT [facility] Alkaline Phosphatase, Plasma 70 46 - 142 U/L 12/11/2024 12:52 PM EDT [facility] Total Bilirubin, Plasma 0.7 0.2 - 1.1 mg/dL 12/11/2024 12:52 PM EDT [facility] eGFRcr 74.9 mL/min/1.7 3m*2 12/11/2024 12:52 PM EDT [facility] Comment:Reported eGFRcr in m L/min/1.73m2 is based the CKD-EPI 2020 equation that does not use a race coefficient. Blood Venous blood specimen / Unknown Venipuncture / Unknown 12/11/2024 11:41 AM EDT 12/11/2024 12:11 PM EDT us Rudolph Dillard MD LAB BLOOD ORDERABLES Final Res ult [facility] [address] [place] [address] * CT Angio Abdomen Pelvis (11/19/2024 10:08 AM EDT) Anatomical Region Laterality Modality Abdomen, Pelvis Computed Tomogra phy Impressions 11/20/2024 8:58 AM EDT TAVR measurements as detailed above. Iliofemoral access appears adequate. 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 CRITICAL RESULT: No. COMMUNICATION: Per this written report. By electronically signing this report, I, the attending physician, attest that I have personally reviewed the images/data for the above examination(s) and agree with the final edited report. Drafted by RT Juan Francisco on 11/19/2024 1:12 PM Final report signed by Abdelrahman Burch MD on 11/20/2024 8:58 AM Narrative 11/20/2024 8:58 AM EDT CLINICAL INDICATION: Aortic stenosis; Preoperative planning for potential transcatheter aortic valve replacement (TAVR) procedure. COMPARISON: CT chest with IV contrast September 04, 2024 TECHNIQUE: ECG synchronized CT of the aortic root, followed immediately by CT angiography of the thorax, abdominal and pelvic aorta, extending from the root of the neck to the inferior margins of the lesser trochanters of the femurs, was performed. Axial images were reconstructed from the source data at 0.5 mm slice thickness with a 0.25 mm reconstruction interval. Multiplanar, curved planar, and 3D images were rendered using advanced processing software and reviewed to further define anatomy and possible pathology. A total of 150 mL of Omnipaque 350 intravenous contrast media was utilized in these examinations. TOTAL DLP (Dose-Length Product): 2409.85 mGy.cm . Please note: The reported value represents the total of one or more individual components during the CT acquisition on this date and at this time, and as such, the same value may appear in more than one CT report depending on the interpreting/reporting physicians. FINDINGS: Quantification of Aortic Valve Calcium Score: 2732 Volume: 2080 Aortic Root Measurements 3-Cusp view: ST LUCIAN 34 degrees; ENGINE SPECIALIST 11 degrees Annulus area: 3.98 cm Annulus maximum diameter: 25 mm Annulus minimum diameter: 19 mm Annulus area based average diameter: 23 mm Annulus perimeter: 73 mm Sinus: L 30 mm, R 28 mm, N 31 mm Sinotubular junction: 28 mm Mid ascending aorta: 34 mm Annulus to sinotubular junction distance: 20 mm Left coronary height: 8 mm Right coronary height: 16 mm Right Iliofemoral Arteries: Common iliac artery: Minimum luminal diameter: 10 mm Calcification: None Tortuosity: Mild External iliac artery: Minimum luminal diameter: 7 mm Calcification: Mild Tortuosity: Mild Common femoral artery: Minimum luminal diameter: 7 mm Calcification: None Left Iliofemoral Arteries: Common iliac artery: Minimum luminal diameter: 10 mm Calcification: None Tortuosity: Mild External iliac artery: Minimum luminal diameter: 7 mm Calcification: Mild Tortuosity: Mild Common femoral artery: Minimum luminal diameter: 7 mm Calcification: Mild Ancillary Findings: The partially visualized common carotid arteries are patent. No mediastinal adenopathy. The previously noted left upper lobe mass and volume loss measures up to 26 mm in maximal dimension (series 6 image 70), stable from comparison within measurement error. No enlarging suspicious nodules. No new suspicious solid abdominal organ lesion on arterial phase imaging. Mild intrahepatic bile duct dilation status post cholecystectomy. No abdominal pelvic lymphadenopathy. Clonic diverticulosis. Severe degenerative changes of the hips. Previously noted areas of vertebral body lucency appears similar. No discrete areas of progressive bony destruction. Procedure Note Abdelrahman Burch MD - 11/20/2024 CLINICAL INDICATION: Aortic stenosis; Preoperative planning for potential transcatheter aorticvalve replacement (TAVR) procedure. COMPARISON: CT chest with IV contrast September 04, 2024 TECHNIQUE: ECG synchronized CT of the aortic root, followed immediately by CTangiography of the thorax, abdominal and pelvic aorta, extending from theroot of the neck to the inferior margins of the lesser trochanters of thefemurs, was performed. Axial images were reconstructed from the sourcedata at 0.5 mm slice thickness with a 0.25 mm reconstruction interval.Multiplanar, curved planar, and 3D images were rendered using advancedprocessing software and reviewed to further define anatomy and possiblepathology. A total of 150 mL of Omnipaque 350 intravenous contrast mediawas utilized in these examinations. TOTAL DLP (Dose-Length Product): 2409.85 mGy.cm . Please note: Thereported value represents the total of one or more individual componentsduring the CT acquisition on this date and at this time, and as such, thesame value may appear in more than one CT report depending on theinterpreting/reporting physicians. FINDINGS: Quantification of Aortic Valve Calcium Score: 2732 Volume: 2080 Aortic Root Measurements 3-Cusp view:ST LUCIAN 34 degrees; ENGINE SPECIALIST 11 degrees Annulus area: 3.98 cm Annulus maximum diameter: 25 mm Annulus minimum diameter: 19 mm Annulus area based average diameter: 23 mm Annulus perimeter: 73 mm Sinus: L 30 mm, R 28 mm, N 31 mm Sinotubular junction: 28 mm Mid ascending aorta: 34 mm Annulus to sinotubular junction distance: 20 mm Left coronary height: 8 mm Right coronary height: 16 mm Right Iliofemoral Arteries: Common iliac artery: Minimum luminal diameter: 10 mm Calcification: None Tortuosity: Mild External iliac artery: Minimum luminal diameter: 7 mm Calcification: Mild Tortuosity: Mild Common femoral artery: Minimum luminal diameter: 7 mm Calcification: None Left Iliofemoral Arteries: Common iliac artery: Minimum luminal diameter: 10 mm Calcification: None Tortuosity: Mild External iliac artery: Minimum luminal diameter: 7 mm Calcification: Mild Tortuosity: Mild Common femoral artery: Minimum luminal diameter: 7 mm Calcification: Mild Ancillary Findings: The partially visualized common carotid arteries are patent. No mediastinal adenopathy. The previously noted left upper lobe mass andvolume loss measures up to 26 mm in maximal dimension (series 6 image 70),stable from comparison within measurement error. No enlarging suspiciousnodules. No new suspicious solid abdominal organ lesion on arterial phase imaging.Mild intrahepatic bile duct dilation status post cholecystectomy. Noabdominal pelvic lymphadenopathy. Clonic diverticulosis. Severedegenerative changes of the hips. Previously noted areas of vertebral body lucency appears similar. Nodiscrete areas of progressive bony destruction. IMPRESSION: TAVR measurements as detailed above. Iliofemoral access appears adequate. 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 CRITICAL RESULT: No. COMMUNICATION: Per this written report. By electronically signing this report, I, the attending physician, attestthat I have personally reviewed the images/data for the aboveexamination(s) and agree with the final edited report. Drafted by RT Juan Francisco on 11/19/2024 1:12 PM Final report signed by Abdelrahman Burch MD on 11/20/2024 8:58 AM us Dian BILL IMG CT PROCEDURES Final Result * CT Angio Chest (11/19/2024 10:08 AM EDT) Anatomical Region Laterality Modality Chest Computed Tomogra phy Impressions 11/20/2024 8:58 AM EDT TAVR measurements as detailed above. Iliofemoral access appears adequate. 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 CRITICAL RESULT: No. COMMUNICATION: Per this written report. By electronically signing this report, I, the attending physician, attest that I have personally reviewed the images/data for the above examination(s) and agree with the final edited report. Drafted by RT Juan Francisco on 11/19/2024 1:12 PM Final report signed by Abdelrahman Burch MD on 11/20/2024 8:58 AM Narrative 11/20/2024 8:58 AM EDT CLINICAL INDICATION: Aortic stenosis; Preoperative planning for potential transcatheter aortic valve replacement (TAVR) procedure. COMPARISON: CT chest with IV contrast September 04, 2024 TECHNIQUE: ECG synchronized CT of the aortic root, followed immediately by CT angiography of the thorax, abdominal and pelvic aorta, extending from the root of the neck to the inferior margins of the lesser trochanters of the femurs, was performed. Axial images were reconstructed from the source data at 0.5 mm slice thickness with a 0.25 mm reconstruction interval. Multiplanar, curved planar, and 3D images were rendered using advanced processing software and reviewed to further define anatomy and possible pathology. A total of 150 mL of Omnipaque 350 intravenous contrast media was utilized in these examinations. TOTAL DLP (Dose-Length Product): 2409.85 mGy.cm . Please note: The reported value represents the total of one or more individual components during the CT acquisition on this date and at this time, and as such, the same value may appear in more than one CT report depending on the interpreting/reporting physicians. FINDINGS: Quantification of Aortic Valve Calcium Score: 2732 Volume: 2080 Aortic Root Measurements 3-Cusp view: ST LUCIAN 34 degrees; ENGINE SPECIALIST 11 degrees Annulus area: 3.98 cm Annulus maximum diameter: 25 mm Annulus minimum diameter: 19 mm Annulus area based average diameter: 23 mm Annulus perimeter: 73 mm Sinus: L 30 mm, R 28 mm, N 31 mm Sinotubular junction: 28 mm Mid ascending aorta: 34 mm Annulus to sinotubular junction distance: 20 mm Left coronary height: 8 mm Right coronary height: 16 mm Right Iliofemoral Arteries: Common iliac artery: Minimum luminal diameter: 10 mm Calcification: None Tortuosity: Mild External iliac artery: Minimum luminal diameter: 7 mm Calcification: Mild Tortuosity: Mild Common femoral artery: Minimum luminal diameter: 7 mm Calcification: None Left Iliofemoral Arteries: Common iliac artery: Minimum luminal diameter: 10 mm Calcification: None Tortuosity: Mild External iliac artery: Minimum luminal diameter: 7 mm Calcification: Mild Tortuosity: Mild Common femoral artery: Minimum luminal diameter: 7 mm Calcification: Mild Ancillary Findings: The partially visualized common carotid arteries are patent. No mediastinal adenopathy. The previously noted left upper lobe mass and volume loss measures up to 26 mm in maximal dimension (series 6 image 70), stable from comparison within measurement error. No enlarging suspicious nodules. No new suspicious solid abdominal organ lesion on arterial phase imaging. Mild intrahepatic bile duct dilation status post cholecystectomy. No abdominal pelvic lymphadenopathy. Clonic diverticulosis. Severe degenerative changes of the hips. Previously noted areas of vertebral body lucency appears similar. No discrete areas of progressive bony destruction. Procedure Note Abdelrahman Burch MD - 11/20/2024 CLINICAL INDICATION: Aortic stenosis; Preoperative planning for potential transcatheter aorticvalve replacement (TAVR) procedure. COMPARISON: CT chest with IV contrast September 04, 2024 TECHNIQUE: ECG synchronized CT of the aortic root, followed immediately by CTangiography of the thorax, abdominal and pelvic aorta, extending from theroot of the neck to the inferior margins of the lesser trochanters of thefemurs, was performed. Axial images were reconstructed from the sourcedata at 0.5 mm slice thickness with a 0.25 mm reconstruction interval.Multiplanar, curved planar, and 3D images were rendered using advancedprocessing software and reviewed to further define anatomy and possiblepathology. A total of 150 mL of Omnipaque 350 intravenous contrast mediawas utilized in these examinations. TOTAL DLP (Dose-Length Product): 2409.85 mGy.cm . Please note: Thereported value represents the total of one or more individual componentsduring the CT acquisition on this date and at this time, and as such, thesame value may appear in more than one CT report depending on theinterpreting/reporting physicians. FINDINGS: Quantification of Aortic Valve Calcium Score: 2732 Volume: 2080 Aortic Root Measurements 3-Cusp view:ST LUCIAN 34 degrees; ENGINE SPECIALIST 11 degrees Annulus area: 3.98 cm Annulus maximum diameter: 25 mm Annulus minimum diameter: 19 mm Annulus area based average diameter: 23 mm Annulus perimeter: 73 mm Sinus: L 30 mm, R 28 mm, N 31 mm Sinotubular junction: 28 mm Mid ascending aorta: 34 mm Annulus to sinotubular junction distance: 20 mm Left coronary height: 8 mm Right coronary height: 16 mm Right Iliofemoral Arteries: Common iliac artery: Minimum luminal diameter: 10 mm Calcification: None Tortuosity: Mild External iliac artery: Minimum luminal diameter: 7 mm Calcification: Mild Tortuosity: Mild Common femoral artery: Minimum luminal diameter: 7 mm Calcification: None Left Iliofemoral Arteries: Common iliac artery: Minimum luminal diameter: 10 mm Calcification: None Tortuosity: Mild External iliac artery: Minimum luminal diameter: 7 mm Calcification: Mild Tortuosity: Mild Common femoral artery: Minimum luminal diameter: 7 mm Calcification: Mild Ancillary Findings: The partially visualized common carotid arteries are patent. No mediastinal adenopathy. The previously noted left upper lobe mass andvolume loss measures up to 26 mm in maximal dimension (series 6 image 70),stable from comparison within measurement error. No enlarging suspiciousnodules. No new suspicious solid abdominal organ lesion on arterial phase imaging.Mild intrahepatic bile duct dilation status post cholecystectomy. Noabdominal pelvic lymphadenopathy. Clonic diverticulosis. Severedegenerative changes of the hips. Previously noted areas of vertebral body lucency appears similar. Nodiscrete areas of progressive bony destruction. IMPRESSION: TAVR measurements as detailed above. Iliofemoral access appears adequate. 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 CRITICAL RESULT: No. COMMUNICATION: Per this written report. By electronically signing this report, I, the attending physician, attestthat I have personally reviewed the images/data for the aboveexamination(s) and agree with the final edited report. Drafted by RT Juan Francisco on 11/19/2024 1:12 PM Final report signed by Abdelrahman Burch MD on 11/20/2024 8:[address] PROCEDURES Final Result from Last 3 Months Additional Health Concerns Active Problems Noted Date Diagnosed Date Autogenerated Problem 01/01/2025 Autogenerated Problem 01/07/2025 Insurance [facility] MEDIC[facility] Advance Directives * Full Code (Latest Code Status on File) Date Activated Date Inactivated Comments 12/27/2024 11:36 AM 12/28/2024 3:20 PM Question Answer Comments I have reviewed the capacity from the link above and, if needed, have updated to appropriate status: Yes Care Teams Traffic Sergeant Relationship Specialty Start Date End Date Wan Santoro MD [address] [facility] [address] [place] [address] PCP - General 01/20/21 Dalton Hurley MD [address] [facility] [address] [place] [address] Consulting Physician Radiation Therapy 03/27/21 Geovanny Dominguez MD [address] [facility] [address] [place] [address] Surgeon Neurosurgery 05/21/21 Rudolph Dillard MD [address] [place] [address] [place] [address] Consulting Physician Medical Oncology 09/22/21 Abdiel Vargas APRN [address] [facility] [address] [place] [address] Nurse Practitioner Internal Medicine 04/09/22 Rodney Maria MD [address] [address] Referring Physician 11/14/24 Brian Flores MD [address] [place] [id number] Consulting Physician Cardiology 11/14/24
--- OUTSIDE RECORDS SUMMARY | 2025-02-01 11:18 | XMS_ITS | Encounter Summary ---
Author Organization Healthcare Address [address] [place] [address] Care Team Providers Care Joint Filler Name Role Phone Wan Santoro MD Primary Care Provider [phone] Dalton Hurley MD Unavailable [phone] Geovanny Dominguez MD Unavailable [phone] Rudolph Dillard MD Unavailable [phone] Abdiel Vargas APRN Unavailable [phone] Rodney Maria MD Unavailable [phone] Brian Flores MD Unavailable [phone] Encounter Details Date Type Department Care Team (Latest Contact Info) Description 01/23/2025 Travel Social History Tobacco Use Types Packs/Day [...] Hospital Encounter [facility] [address] [place] [address] Abdelrahman Betancur MD [address] [place] [address] 02/11/2025 1:05 PM EDT Anesthesia Event [facility] Room [address] [place] [phone] JulianEvelyn W, LOCAL OWNER OPERATOR TRUCK DRIVER [address] [place] [address] 02/11/2025 1:05 PM EDT - 02/11/2025 3:30 PM EDT Surgery [facility] [address] [place] [phone] Abdelrahman Betancur MD [address] [facility] [address] [place] [address] ARTHROPLASTY, HIP, TOTAL, ANTERIOR APPROACH [62495 (CPT )] 02/26/2025 11:20 AM EDT Office Visit Medical Office Building [facility] [address] [facility] [place] [address] Renetta Stoner PA [address] [facility] [address] [place] [address] 03/06/2025 10:00 AM EDT Appointment Medical Office Building Cardiac Diagnostic Testing Medical Office Building Echo Lab [address] [facility] [place] [address] 03/06/2025 11:30 AM EDT Office Visit [facility] [place] [address] [facility] [place] [address] Dian Yancey PA [address] [place] [address] 03/26/2025 11:10 AM EDT Office Visit Medical Office Building Surgery Sp[facility] [address] [facility] [place] [address] Abdelrahman Betancur MD [address] [facility] [address] [place] [address] 04/02/2025 9:40 AM EDT Appointment [facility] Radiology [address] [place] [phone] 04/02/2025 10:30 AM EDT Appointment [facility]iology [address] [place] [phone] 04/02/2025 1:15 PM EDT Clinical Support [facility] [address] [facility] 2nd [place] [address] 04/02/2025 1:40 PM EDT Office Visit [facility] [address] [facility] [place] [phone] Rudolph Dillard MD [address] [address] 04/08/2025 7:30 AM EDT Hospital Encounter [facility] Operating Room [address] [place] [address] Abdelrahman Betancur MD [address] [address] 04/08/2025 7:30 AM EDT - 04/08/2025 10:15 AM EDT Surgery [facility] Operating Room [address] [place] [address] Abdelrahman Betancur MD [address] [facility] [address] [place] [address] ARTHROPLASTY, HIP, TOTAL, ANTERIOR APPROACH [77958 (CPT )] 04/23/2025 11:00 AM EDT Office Visit Medical Office Building Surgery [facility] [address] [facility] [place] [address] Renetta Stoner PA [address] [place] [phone] 05/21/2025 11:10 AM EST Office Visit Medical Office Building [facility] [address] [place] [phone] Abdelrahman Betancur MD [address] [place] [address] 01/08/2026 2:00 PM EDT Appointment Medical Office Building Cardiac Diagnostic Testing Medical Office Building Echo Lab [address] [facility] [place] [address] 01/08/2026 3:00 PM EDT Office Visit [facility] [place] [address] [facility] [place] [address] Dian Yancey PA [address] [place] [address] Scheduled Procedures Name Priority Associated [...] documented as of this encounter Care Teams Joint Filler Relationship Specialty Start Date End Date Wan Santoro MD [address] [facility] [address] [place] [address] PCP - General 01/20/21 Dalton Hurley MD [address] [facility] [address] [place] [address] Consulting Physician Radiation Therapy 03/27/21 Geovanny Dominguez MD [address] [facility] [address] [place] [address] Surgeon Neurosurgery 05/21/21 Rudoplh Dillard MD [address] [address] Consulting Physician Medical Oncology 09/22/21 Abdiel Vargas, LOCAL OWNER OPERATOR TRUCK DRIVER [address] [facility] [address] [place] [address] Nurse Practitioner Internal Medicine 04/09/22 Rodney Maria MD [address] [facility] [address] [place] [address] Referring Physician 11/14/24 Brian Flores MD [address] [place] [address] Consulting Physician Cardiology 11/14/24 documented as of this encounter
--- OUTSIDE RECORDS SUMMARY | 2025-02-01 11:18 | XMS_ITS | Encounter Summary ---
Author Organization [facility] Address [address] [place] [address] Care Team Providers Care Division Commander Name Role Phone Wan Santoro MD Primary Care Provider [phone] Dalton Hurley MD Unavailable [phone] Geovanny Dominguez MD Unavailable [phone] Rudolph Dillard MD Unavailable [phone] Abdiel Vargas APRN Unavailable [phone] Rodney Maria MD Unavailable [phone] Brian Flores MD Unavailable [phone] Reason for Visit * Reason Onset Date Comments Med Refill 01/28/2025 Encounter Details Date Type Department Care Team (Late st Contact Info) Description 01/28/2025 Refill [facility]ck & Respiratory 800 [facility], 2nd [place] [address] Rudolph Dillard MD 800 [facility] 2nd [place] [address] 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) Social History Tobacco Use Types Packs/Day [...] Description 02/11/2025 1:05 PM EDT Hospital Encounter [facility] S Operating Room [address] [place] [address] Abdelrahman Betancur MD [address] [place] [address] 02/11/2025 1:05 PM EDT Anesthesia Event [facility] S Operating Room [address] [place] [address] Evelyn Julian W, PRINT BINDING AND FINISHING WORKER [address] [place] [address] 02/11/2025 1:05 PM EDT - 02/11/2025 3:30 PM EDT Surgery [facility] S Operating Room [address] [place] [address] Abdelrahman Betancur MD [address] [facility] 201 [place] [address] ARTHROPLASTY, HIP, TOTAL, ANTERIOR APPROACH [69472 (CPT )] 02/26/2025 11:20 AM EDT Office Visit Medical Office Building Surgery [facility] [address] , [address] [place] [address] Renetta Stoner PA [address] [place] [address] 03/06/2025 10:00 AM EDT Appointment Medical Office Building Cardiac Diagnostic Testing Medical Office Building Echo Lab [address] , [address] [place] [address] 03/06/2025 11:30 AM EDT Office Visit [facility] [place] [address] [facility], [address] [place] [address] Dian Yancey PA 800 [place] [address] 03/26/2025 11:10 AM EDT Office Visit Medical Office Building Surgery [facility] [address] [facility], [address] [place] [address] Abdelrahman Betancur MD 125 E [facility] 201 [place] [address] 04/02/2025 9:40 AM EDT Appointment [facility] [address] [place] [address] 04/02/2025 10:30 AM EDT Appointment [facility] [address] [place] [address] 04/02/2025 1:15 PM EDT Clinical Support [facility] Head, Neck & Respiratory 800 [facility], 2nd [place] [address] 04/02/2025 1:40 PM EDT Office Visit [facility]ck [facility] Respiratory 800 [facility], 2nd [place] [address] Rudolph Dillard MD 800 [facility] 2nd [place] [address] 04/08/2025 7:30 AM EDT Hospital Encounter [facility] S Operating Room [address] [place] [address] Abdelrahman Betancur MD 125 [address] [facility] 201 [place] [address] 04/08/2025 7:30 AM EDT - 04/08/2025 10:15 AM EDT Surgery [facility] S Operating Room [address] [place] [address] Abdelrahman Betancur MD 125 [address] [facility] 201 [place] [address] ARTHROPLASTY, HIP, TOTAL, ANTERIOR APPROACH [06269 (CPT )] 04/23/2025 11:00 AM EDT Office Visit Medical Office Building [facility] [address], [address] [place] [address] Renetta Stoner PA [address] [place] [address] 05/21/2025 11:10 AM EST Office Visit Medical Office Building [facility] [address], [address] [place] [address] Abdelrahman Betancur MD [address] [place] [address] 01/08/2026 2:00 PM EDT Appointment Medical Office Building Cardiac Diagnostic Testing Medical Office Building Echo Lab 125 [address] [facility], [address] [place] [address] 01/08/2026 3:00 PM EDT Office Visit [facility] [place] [address] [facility], [address] [place] [address] Dian Yancey PA [address] [place] [address] Scheduled Procedures Name Priority Associated Diagnoses [...] as of this encounter Visit Diagnoses Diagnosis Arthritis of left hip- Primary 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) Arthritis of left hip Arthritis of [...] documented as of this encounter Care Teams Division Commander Relationship Specialty Start Date End Date Wan Santoro MD [address] [place] [address] PCP - General 01/20/21 Dalton Hurley MD 800 [facility] [address] [place] [address] Consulting Physician Radiation Therapy 03/27/21 Geovanny Dominguez MD [address] [facility] [address] [place] [address] Surgeon Neurosurgery 05/21/21 Rudolph Dillard MD [address] [address] Consulting Physician Medical Oncology 09/22/21 Abdiel Vargas, PRINT BINDING AND FINISHING WORKER [address] [place] [address] Nurse Practitioner Internal Medicine 04/09/22 Rodney Maria MD 1210 [facility] [address] [place], [place] [address] Referring Physician 11/14/24 Brian Flores MD [address] [place] [address] Consulting Physician Cardiology 11/14/24 documented as of this encounter
--- OUTSIDE RECORDS SUMMARY | 2025-02-01 11:18 | XMS_ITS | Encounter Summary ---
Author Organization [facility] Address [address] [place] [address] Care Team Providers Care Pamphlet Distributor Name Role Phone Wan Santoro MD Primary Care Provider [phone] Dalton Hurley MD Unavailable [phone] Geovanny Dominguez MD Unavailable [phone] Rudolph Dillard MD Unavailable [phone] Abdiel Vargas APRN Unavailable [phone] Rodney Maria MD Unavailable [phone] Brian Flores MD Unavailable [phone] Encounter Details Date Type Department Care Team (Late st Contact Info) Description 01/04/2025 Orders Only Medical Office Building Surgery Spine & Joint [address] [facility], [address] [place] [address] Abdelrahman Betancur MD [address] [place] [address] Social History Tobacco Use Types [...] Encounter [facility] S Operating Room [address] [place] [address] Abdelrahman Betancur MD [address] [facility] 201 [place] [address] 02/11/2025 1:05 PM EDT Anesthesia Event [facility] Operating Room [address] [place] [address] Evelyn Julian, PASSENGER SERVICE AGENT [address] [facility] [address] [place] [address] 02/11/2025 1:05 PM EDT - 02/11/2025 3:30 PM EDT Surgery [facility] Operating Room [address] [place] [address] Abdelrahman Betancur MD [address] [facility] 201 [place] [address] ARTHROPLASTY, HIP, TOTAL, ANTERIOR APPROACH [05765 (CPT )] 02/26/2025 11:20 AM EDT Office Visit Medical Office Building Surgery Spine & Joint 125 [address] [facility], [address] [place] [address] Renetta Stoner PA [address] [facility] 201 [place] [address] 03/06/2025 10:00 AM EDT Appointment Medical Office Building Cardiac Diagnostic Testing Medical Office Building Echo Lab [address] [facility], [address] [place] [address] 03/06/2025 11:30 AM EDT Office Visit [facility] [place] [address] [facility], [address] [place] [address] Dian Yancey PA 800 [place] [address] 03/26/2025 11:10 AM EDT Office Visit Medical Office Building Surgery Sp[facility] [address] [facility], [address] [place] [address] Abdelrahman Betancur MD 125 [address] [facility] 201 [place] [address] 04/02/2025 9:40 AM EDT Appointment [facility] [address] [place] [address] 04/02/2025 10:30 AM EDT Appointment [facility] [address] [place] [address] 04/02/2025 1:15 PM EDT Clinical Support Pav CC Head, Neck & Respiratory 800 [facility], 2nd [place] [address] 04/02/2025 1:40 PM EDT Office Visit Pav [facility] Head[facility]ck [facility] Respiratory [address] [address] Rudolhp Dillard MD [address] [address] 04/08/2025 7:30 AM EDT Hospital Encounter [facility] S Operating Room [address] [place] [address] Abdelrahman Betancur MD 125 E [facility] 201 [place] [address] 04/08/2025 7:30 AM EDT - 04/08/2025 10:15 AM EDT Surgery [facility] Operating Room [address] [place] [address] Abdelrahman Betancur MD 125 E [facility] 201 [place] [address] ARTHROPLASTY, HIP, TOTAL, ANTERIOR APPROACH [70838 (CPT )] 04/23/2025 11:00 AM EDT Office Visit Medical Office Building [facility] [address], [address] [place] [address] Renetta Stoner PA [address] [place] [address] 05/21/2025 11:10 AM EST Office Visit Medical Office Building [facility] [address], [address] [place] [address] Abdelrahman Betancur MD [address] [place] [address] 01/08/2026 2:00 PM EDT Appointment Medical Office Building Cardiac Diagnostic Testing Medical Office Building Echo Lab [address], [address] [place] [address] 01/08/2026 3:00 PM EDT Office Visit [facility] [place] [address] [facility], [address] [place] [address] Dian Yancey PA [address] [place] [address] Scheduled Procedures Name Priority Associated Diagnoses [...] documented as of this encounter Care Teams Pamphlet Distributor Relationship Specialty Start Date End Date Wan Santoro MD 1210 [facility] [address] [place], [place] [address] PCP - General 01/20/21 Dalton Hurley MD 800 [facility] [address] [place] [address] Consulting Physician Radiation Therapy 03/27/21 Geovanny Dominguez MD [address] [place] [address] Surgeon Neurosurgery 05/21/21 Rudolph Dillard MD [address] [address] Consulting Physician Medical Oncology 09/22/21 Abdiel Vargas APRN 800 [facility] [address] [place] [address] Nurse Practitioner Internal Medicine 04/09/22 Rodney Maria MD 1210 [facility] [address] [place] [address] Referring Physician 11/14/24 Brian Flores MD 800 [place] [address] Consulting Physician Cardiology 11/14/24 documented as of this encounter
--- OUTSIDE RECORDS SUMMARY | 2025-02-01 11:18 | XMS_ITS | Encounter Summary ---
Author Organization [facility] Address [address] [place] [address] Care Team Providers Care Blankbook Forwarder Name Role Phone Wan Santoro MD Primary Care Provider [phone] Dalton Hurley MD Unavailable [phone] Geovanny Dominguez MD Unavailable [phone] Rudolph Dillrad MD Unavailable [phone] Abdiel Vargas APRN Unavailable [phone] Rodney Maria MD Unavailable [phone] Brian Flores MD Unavailable [phone] Encounter Details Date Type Department Care Team (Latest Contact Info) Description 12/28/2024 Travel Social History Tobacco Use Types Packs/Day [...] Month) No 025 8:00 AM EDT Shravan Ivory, RN 2. Non-Specific Active Suici rahel Thoughts (Past 1 Month) No 12/28/2024 8:00 AM EDT Shravan Ivory, RN 6. Suicidal Behavior (Lifetime) No 8:00 AM EDT Shravan Ivory, RN documented as of this encounter Plan of Treatment Upcoming Encounters Date Type Department Care Team (Late st Contact Info) Description 02/11/2025 1:05 PM EDT Hospital Encounter [facility] S Operating Room [address] [place] [address] Abdelrahman Betancur MD [address] [place] [address] 02/11/2025 1:05 PM EDT Anesthesia Event [facility] Operating Room [address] [place] [address] Evelyn Julian W, RN FIRST ASSIST [address] [facility] [address] [place] [address] 02/11/2025 1:05 PM EDT - 02/11/2025 3:30 PM EDT Surgery [facility] S Operating Room [address] [place] [address] Abdelrahman Betancur MD [address] [place] [address] ARTHROPLASTY, HIP, TOTAL, ANTERIOR APPROACH [83612 (CPT )] 02/26/2025 11:20 AM EDT Office Visit Medical Office Building [facility] [address] [place] [address] Renetta Stoner PA [address] [place] [address] 03/06/2025 10:00 AM EDT Appointment Medical Office Building Cardiac Diagnostic Testing Medical Office Building Echo Lab [address] [facility], [address] [place] [address] 03/06/2025 11:30 AM EDT Office Visit [facility] [place] [address] [facility], [address] [place] [address] Dian Yancey PA 800 [place] [address] 03/26/2025 11:10 AM EDT Office Visit Medical Office Building Surgery Sp[facility] & [facility] [address] [facility], [address] [place] [address] Abdelrahman Betancur MD 125 [address] [facility] 201 [place] [address] 04/02/2025 9:40 AM EDT Appointment [facility] 1000 [place] [address] 04/02/2025 10:30 AM EDT Appointment [facility] [address] [place] [address] 04/02/2025 1:15 PM EDT Clinical Support Pav CC Head, Neck & Respiratory 800 [facility], 2nd [place] [address] 04/02/2025 1:40 PM EDT Office Visit Pav [facility] Head, Neck & Respiratory 800 [facility], [address]nd [place] [address] Rudolph Dillard MD [address] [address] 04/08/2025 7:30 AM EDT Hospital Encounter [facility] Operating Room [address] [place] [address] Abdelrahman Betancur MD 125 E [facility] 201 [place] [address] 04/08/2025 7:30 AM EDT - 04/08/2025 10:15 AM EDT Surgery [facility] Operating Room [address] [place] [address] Abdelrahman Betancur MD 125 [address] [facility] 201 [place] [address] ARTHROPLASTY, HIP, TOTAL, ANTERIOR APPROACH [[id number] (CPT )] 04/23/2025 11:00 AM EDT Office Visit Medical Office Building Surgery [facility] [address] [facility], [address] [place] [address] Renetta Stoner PA 125 [address] [facility] 201 [place] [address] 05/21/2025 11:10 AM EST Office Visit Medical Office Building Surgery [facility] [address] [facility], [address] [place] [address] Abdelrahman Betancur MD 125 [address] [facility] 201 [place] [address] 01/08/2026 2:00 PM EDT Appointment Medical Office Building Cardiac Diagnostic Testing Medical Office Building Echo Lab [address] [facility], [address] [place] [address] 01/08/2026 3:00 PM EDT Office Visit [facility] [place] [address] [facility], [address] [place] [address] Dian Yancey PA [address] [place] [address] Scheduled Procedures Name Priority Associated Diagnoses Date/Ti tn ARTHROPLASTY, HIP, TOTAL, ANTERIOR APPROACH Arthritis of [...] documented as of this encounter Care Teams Blankbook Forwarder Relationship Specialty Start Date End Date Wan Santoro MD 1210 [facility] [address] [place] [address] PCP - General 01/20/21 Dalton Hurley MD 800 [facility] [address] [place] [address] Consulting Physician Radiation Therapy 03/27/21 Geovanny Dominguez MD [address] [place] [address] Surgeon Neurosurgery 05/21/21 Rudolph Dillard MD 800 [facility] [address]nd [place] [address] Consulting Physician Medical Oncology 09/22/21 Abdiel Vargas APRN 800 [facility] [address] [facility] [address] [place] [address] Nurse Practitioner Internal Medicine 04/09/22 Rodney Maria MD 1210 [facility] [address] [place] [address] Referring Physician 11/14/24 Brian Flores MD 800 [place] [address] Consulting Physician Cardiology 11/14/24 documented as of this encounter
--- OUTSIDE RECORDS SUMMARY | 2025-02-01 11:18 | XMS_ITS | Encounter Summary ---
Author Organization [facility] Address [address] [place] [address] Care Team Providers Care Courier Delivery Driver Name Role Phone Wan Santoro MD Primary Care Provider [phone] Dalton Hurley MD Unavailable [phone] Geovanny Dominguez MD Unavailable [phone] Rudolph Dillard MD Unavailable [phone] Abdiel Vargas APRN Unavailable [phone] Rodney Maria MD Unavailable [phone] Brian Flores MD Unavailable [phone] Reason for Referral * Consultation (Routine) - Authorized Specialty Diagnoses / Procedures Referred By [place] Referred To Contact Physical Therapy Diagnoses Arthritis of right hip Abdelrahman Betancur MD 125 E [facility] 201 [place] [address] Phone: tel: fax: Referral ID Status Reason Start Date Expiration Date Visits Requested Visits Authorized [id number] Authorized Consult and Treat 01/25/2025 07/27/2026 1 1 Scheduling Instructions THIS IS A GENERIC REFERRAL FOR SCHEDULING PURPOSES ONLY. PATIENT WILL BRING POST OP REFERRAL TO FIRST APPOINTMENT Encounter Details Date Type Department Care Team ([facility] st Contact Info) Description 01/25/2025 Orders Only Medical Office Building Surgery Spine & Joint [address] [facility], [address] [place] [address] Abdelrahman Betancur MD [address] [place] [address] Arthritis of right hip (Primary Dx) Social History Tobacco Use Types [...] Description 02/11/2025 1:05 PM EDT Hospital Encounter [facility] Operating Room [address] [place] [address] Abdelrahman Betancur MD [address] [place] [address] 02/11/2025 1:05 PM EDT Anesthesia Event [facility] Operating Room [address] [place] [address] Evelyn Julian W, MELTER SUPERVISOR [employer] HEAR[employer]CE [address] [facility] [address] [place] [address] 02/11/2025 1:05 PM EDT - 02/11/2025 3:30 PM EDT Surgery [facility] Operating Room [address] [place] [address] Abdelrahman Betancur MD [address] [place] [address] ARTHROPLASTY, HIP, TOTAL, ANTERIOR APPROACH [[id number] (CPT )] 02/26/2025 11:20 AM EDT Office Visit Medical Office Building Surgery Sp[facility] & [facility] [address] [facility], [address] [place] [address] Renetta Stoner PA [address] [place] [address] 03/06/2025 10:00 AM EDT Appointment Medical Office Building Cardiac Diagnostic Testing Medical Office Building Echo Lab [address] [facility], [address] [place] [address] 03/06/2025 11:30 AM EDT Office Visit [facility] [place] [address] [facility], [address] [place] [address] Dian Yancey PA 800 [place] [address] 03/26/2025 11:10 AM EDT Office Visit Medical Office Building Surgery [facility] [address] [facility], [address] [place] [address] Abdelrahman Betancur MD [address] [place] [address] [place] [address] 04/02/2025 9:40 AM EDT Appointment [facility] [address] [place] [address] 04/02/2025 10:30 AM EDT Appointment [facility] [address] [place] [address] 04/02/2025 1:15 PM EDT Clinical Support [facility] Head, Neck & Respiratory 800 [facility], 2nd [place] [address] 04/02/2025 1:40 PM EDT Office Visit [facility] Head[facility] Neck & Respiratory 800 [facility], [address]nd [place] [address] Rudolph Dillard MD [address] [address] 04/08/2025 7:30 AM EDT Hospital Encounter [facility] Operating Room [address] [place] [address] Abdelrahman Betancur MD [address] [place] [address] 04/08/2025 7:30 AM EDT - 04/08/2025 10:15 AM EDT Surgery [facility] Operating Room [address] [place] [address] Abdelrahman Betancur MD [address] [facility] [address] [place] [address] ARTHROPLASTY, HIP, TOTAL, ANTERIOR APPROACH [32657 (CPT )] 04/23/2025 11:00 AM EDT Office Visit Medical Office Building [facility] [address] [facility], [address] [place] [address] Renetta Stoner PA [address] [facility] 201 [place] [address] 05/21/2025 11:10 AM EST Office Visit Medical Office Building Surgery [facility] [address] [facility], [address] [place] [address] Abdelrahman Betancur MD 125 E [facility] 201 [place] [address] 01/08/2026 2:00 PM EDT Appointment Medical Office Building Cardiac Diagnostic Testing Medical Office Building Echo Lab [address] [facility], [address] [place] [address] 01/08/2026 3:00 PM EDT Office Visit [facility] [place] [address] [facility], [address] [place] [address] Dian Yancey PA [address] [place] [address] Scheduled Procedures Name Priority Associated Diagnoses Date/Ti me ARTHROPLASTY, HIP, TOTAL, ANTERIOR APPROACH Arthritis of left hip 02/11/2025 1:05 PM EDT ARTHROPLASTY, HIP, TOTAL, ANTERIOR APPROACH Arthritis of right hip 04/08/2025 7:30 AM EDT Scheduled Referrals Name Type Priority Associated Diagnoses Order Schedule Ambulatory referral to Physical Therapy Outpatient Referral Routine Arthritis of right hip 1 Occurrences starting 01/25/2025 until 07/29/2026 documented as of this encounter Goals Goal Patient Goal Type Associated Problems Recent Progress Patient-Stated? Author Autogenerat ed Goal Care Plan Autogenerated Problem No Latisha noble Autogenerat ed Goal Care Plan Autogenerated Problem No Latisha Sun documented as of this encounter Visit Diagnoses Diagnosis Arthritis of left hip- Primary Arthritis of right hip- Primary Arthritis of left hip Arthritis [...] documented as of this encounter Care Teams Courier Delivery Driver Relationship Specialty Start Date End Date Wan Santoro MD [facility] [address] [place] [address] PCP - General 01/20/21 Dalton Hurley MD [address] [facility] [address] [place] [address] Consulting Physician Radiation Therapy 03/27/21 Geovanny Dominguez MD [address] [facility] [address] [place] [address] Surgeon Neurosurgery 05/21/21 Rudolph Dillard MD [address] [address] Consulting Physician Medical Oncology 09/22/21 Abdiel Vargas APRN 800 [facility] [address] [place] [address] Nurse Practitioner Internal Medicine 04/09/22 Rodney Maria MD [address] [place] [id number] Referring Physician 11/14/24 Brian Flores MD 800 [place] [address] Consulting Physician Cardiology 11/14/24 documented as of this encounter
[2025-02-01 11:53] LABS: Hematocrit 34.2 % (37.0-47.0); Hemoglobin 11.2 g/dL (12.2-16.2); Mean Corpuscular HGB Conc 32.7 g/dL (31.8-35.4); Mean Corpuscular Hemoglobin 29.8 pg (27.0-31.2); Mean Corpuscular Volume 91.0 fl (81-99); Nucleated Red Blood Cells % 0 %; Platelet Count 151 K/mm3 (142-424); Red Blood Count 3.76 M/mm3 (4.20-5.40); Red Cell Distribution Width-SD 44.5 fL; White Blood Count 6.8 K/mm3 (4.8-10.8)
[2025-02-01 12:12] LABS: Albumin Level 4.3 g/dl (3.5-5.0); Anion Gap 16.7 mEq/L (5-15); Blood Urea Nitrogen 15 mg/dl (7-17); Calcium 9.9 mg/dl (8.4-10.2); Carbon Dioxide 24 mmol/L (22.0-30.0); Chloride 103 mmol/L (98-107); Creatinine,Serum 0.90 mg/dl (0.52-1.04); Estimated Glomerular Filt Rate 62 ml/min (>60); GFR (African American) 75 ML/MIN (>60); Glucose 93 mg/dl (74-100); Potassium 3.7 mmoL/L (3.5-5.1); Sodium 140 mmol/L (136-145)
[2025-02-01 12:15] LABS: Hemoglobin A1C 5.9 % (4.0-6.0)
== END 2025-02-01 23:59 | disposition home or self-care (01) ==
LOC: LAB 11:15
PROVIDERS: PCP Internal Medicine; Visit Provider Orthopaedic Surgery Adult Reconstructive Orthopaedic Surgery
DX: M16.12 Unilateral primary osteoarthritis, left hip (principal); M25.552 Pain in left hip
CPT/HCPCS: 36415; 80048; 82040; 83036; 85027

== ENCOUNTER 2025-02-13 12:51 | Outpatient (RCR) | payer MEDICARE, SELFPAY | END 2025-02-13 23:59 | disposition home or self-care (01) | LOC: PT 12:51 | PROVIDERS: PCP Internal Medicine; Visit Provider Orthopaedic Surgery Adult Reconstructive Orthopaedic Surgery | DX: M16.11 Unilateral primary osteoarthritis, right hip (principal) | CPT/HCPCS: 97162 ==

== ENCOUNTER 2025-02-25 15:30 | Outpatient (CLI) | payer MEDICARE, SELFPAY ==
--- OUTSIDE RECORDS SUMMARY | 2024-12-27 08:00 | XMS_ITS | Encounter Summary ---
Author Organization [facility] Address [address] [place] [address] Care Team Providers Care Artificial Fly Tier Name Role Phone Wan Santoro MD Primary Care Provider [phone] Dalton Hurley MD Unavailable [phone] Geovanny Dominguez MD Unavailable [phone] uRdolph Dillard MD Unavailable [phone] Abdiel Vargas APRN Unavailable [phone] Rodney Maria MD Unavailable [phone] Brian Flores MD Unavailable [phone] Reason for Referral * Consultation (Routine) - Authorized Specialty Diagnoses / Procedures Referred By Contac t Referred To Contact Cardiac Rehabilitation Diagnoses S/P TAVR (transcatheter aortic valve replacement) Brian Flores MD [address] [place] [address] Phone: tel: fax: Referral ID Status Reason Start Date Expiration Date V isits Requested Visits Authorized [id number] Authorized 12/28/2024 06/29/2026 1 1 Reason for Visit * Auth/Cert (Routine) Specialty Diagnoses / Procedures Referred By Contac t Referred To Contact Diagnoses Nonrheumatic aortic valve stenosis Nonrheumatic aortic valve stenosis [I35.0] Procedures NE REPLACE AORTIC VALVE PERQ FEMORAL ARTRY APPROACH TAVR IMPLANTATION, AORTIC VALVE, TRANSCATHETER Brian Flores MD [address] [place] [address] Phone: tel: fax: Cardiac [place] [facility] [address] [place] [address] Phone: tel: Referral ID Status Reason Start Date Expiration Date Visits Re quested Visits Authorized [id number] 1 1 Encounter Details Date Type Department Care Team (Latest Contact Info) Description 12/27/2024 8:00 AM EDT - 12/28/2024 1:15 PM EDT Hospital Encounter [facility] Inpatient [address] [place] [address] Brian Flores MD [address] [place] [address] S/P TAVR (transcatheter aortic valve [...] Discharge Instructions * Discharge Instructions* Kaleb Bond, PRERNA - 12/27/2024 9:21 AM EDT TAVR Discharge [...] and contact the [facility] at [phone]. If after hours, call [phone]. For emergencies, call [phone]. Follow up: You will have an echocardiogram and follow-up with the Structural Team in 1 month. If you have not received a follow up appointment at the time of discharge, they will be in contact with you in the next few days via phone or mail reminder. If you do not hear from someone within 3-5 days, call the [facility] at [phone] for more information. Please call Dylon Pope RN, with any other questions. Medication Instructions: Antibiotics are required prior to all dental visits. Take Medication exactly as instructed in your discharge packet Do not take any medications that have not been ordered for you. This means do not take other people's medication, illegal drugs or substances. The following information is obtained directly from the [place] [employer]. https://www.heart.org/en/health-topics/infective-endocarditis What is Infective Endocarditis? [...] referral to closest facility to her home, [facility]. [place] will contact Ms. Lynn to discuss and [...] 2. Eligibility: Heart valve surgery 3. Exceptions/exclusions: [facility] Cardiac Rehab Exclusions: None 4. Referral: [facility] Cardiac Rehab Referral: Patient will consider participating in a cardiac rehabilitation program. Patient was provided with contact information for the following program(s) for consideration: [place], [place] - [phone]. 5. Information sent: Information Sent: Appropriate information will be sent to the receiving cardiac rehabilitation program.: * Denise Duarte - Shravan Ivory RN - 12/28/2024 12:16 PM EDT Images from the original note were not included. [id number] After Heart Valve Surgery For the first [...] headache Last Reviewed Date: 2023 00:00:00 ?? [id number] [employer]. All rights reserved. This information is not intended as a substitute for professional medical care. Always follow your healthcare professional's instructions. * Denise De LeonREAL - Shravan Ivory RN - 12/28/2024 12:16 PM EDT Images from the original note were not included. [id number] Understanding Transcatheter Aortic Valve Replacement (TAVR) Transcatheter [...] program. Last Reviewed Date: 2024 00:00:00 ?? [id number] [employer]. All rights reserved. This information is not [...] PCP name and Address: Wan Santoro MD [address] [place] [address] [address] / [place] [address] Referring provider name and address: No referring [...] will be extracted and entered into the NCD Clinical Registry/[facility] Research as required by the National Coverage Decision.? NCT Identifier [id number]. 12/27/2024 S/P TAVR with 23 mm Maria D [address] Brian Flores MD ([facility]). 12/28/2024 Subjective: Awake and alert. NAD. VSS. No complaints of chest pain, SOA, N/V, diaphoresis, or palpitations. equipment monitor phototypesetting showing SR without ectopy. Groin sites without [...] Ultra prosthesis per Dr. Brian Flores MD ([facility]). - Routine pre and post-op care. [...] dental procedures for life. - Follow-up with [facility] in [...] Ultra prosthesis per Dr. Brian Flores MD ([facility]). Interpretation Successful transfemoral transcatheter aortic valve [...] was obtained: 1) Right common femoral vein: 8-[place]izen [place] short Terumo sheath 2) Right common femoral artery: 6-[place]izen [place] short Terumo sheath 3) Left common femoral artery: 7-[place]izen [place] short Terumo sheath The 6-[place]izen [place] right common femoral arterial sheath was upsized to an 8-[place] sheath after 2 Preclose sutures were deployed. Heparin was given for a goal ACT>250. Antibiotics were given. The 8-[place] right femoral arterial sheath was upsized to the 14-[place]izen [place] Zavala sheath over a Safari wire. A temporary pacemaker wire was advanced from the venous sheath to the right ventricular apex. Thresholds were tested and confirmed to be adequate. A 6-[place] angled pigtail catheter was inserted from the left common femoral arterial sheath to theright coronary cusp. An aortogram was performed to confirm the correct coplanar angle. The aortic valve was crossed from the E-sheath using an exchange-length J-tip wire and a 6-FrenchAL1 diagnostic catheter. The AL1 catheter was removed and a 6-[place]izen [place] angled pigtail catheter was advanced over the [...] Maria D 3 Ultra Tavr 23mm - [id number] - [id number] - Implanted Inventory item: VALVE KIT MARIA D 3 ULTRA TAVR 23MM Model/Cat number: [id number] Serial number: [id number] Heel Caser: [id number] Lot number: [id number] As of 12/27/2024 Status: Implanted Discharge Diagnosis [...] - 1.1 mg/dL POCT eGFR 61 mL/min/1.73m*2 Patrol Sergeant Sheriff'S Office ID Nela Perez Device ID [id number] Comment Echo, Adult Transthoracic (TTE) Limited Collection [...] Rate 78 BPM Atrial Rate 78 BPM NE Interval 162 ms QRSD Interval 102 ms QT Interval 428 ms QTC Interval 487 ms P [place]ane 36 degrees R [place] 14 degrees T Wave [place] -39 degrees Diagnosis Normal sinus rhythm Diagnosis Anteroseptal infarct , age undetermined Diagnosis T wave abnormality, consider inferior ischemia Diagnosis Long QTc Diagnosis Abnormal ECG Diagnosis Diagnosis Confirmed by Doe Lion ([id number]) on 12/27/2024 2:49:27 PM CBC Collection Time: [...] Rate 85 BPM Atrial Rate 85 BPM NE Interval 150 ms QRSD Interval 90 ms QT Interval 386 ms QTC Interval 459 ms P [place] Plane -1 degrees R [place] Plane -36 degrees T Wave [place]ane 20 degrees Diagnosis Normal sinus rhythm Diagnosis [...] pressure and contact the Structural Team at [phone]. If after hours, call [phone]. For emergencies, call [phone]. Follow up: You will have an echocardiogram and follow-up with the Structural Team in 1 month. If you have not received a follow up appointment at the time of discharge, they will be in contact with you in the next few days via phone or mail reminder. If you do not hear from someone within 3-5 days, call the [facility] at [phone] for more information. Please call Dylon Pope RN, with any other questions. Medication Instructions: Antibiotics are required prior to all dental visits. Take Medication exactly as instructed in your discharge packet Do not take any medications that have not been ordered for you. This means do not take other people's medication, illegal drugs or substances. The following information is obtained directly from the [place] [employer]. https://www.heart.org/en/health-topics/infective-endocarditis What is Infective Endocarditis? [...] Time Provider Department Center 04/02/2025 9:[address] [facility] [...] preparation of discharge paperwork. Kaleb Bond APRN [phone] Cosigned by Brian Flores MD at 12/28/2024 [...] Operative note TAVR : Date: 12/27/2024 Location: [facility] OR Name: Priya Lynn, : 1955, Pre-operative Diagnosis: Problem List[1] Post-operative Diagnosis: Problem List[2] Surgeons: This procedure was performed jointly by Cardiothoracic Surgery physicians and Interventional Cardiology. The primary Cardiothoracic Surgery concrete gun operator was Dr. Gladys Lopez. The primary Interventional Cardiology concrete gun operator was Dr Brian Cates Operation: Transcatheter [...] right femoral artery, then we crossed the algaaciq aortic valve with J-wire exchanged over pigtail [...] was advanced to the level of the algaaciq aortic valve and positioned so that the [...] Transcatheter Aortic Valve Replacement, according to the [facility] National Coverage Decision.?Case data will be extracted and entered into the NCD Clinical Registry/[facility] Research as required by the National Coverage Decision.? NCT Identifier [id number]. Cardiac Diagnostics: Echo - 10/03/2024: LVEF 55%. [...] file Social Connections: Unknown (04/23/2023) Received from [facility] Family and Community Support Help with Day-to-Day Activities: Not on file Lonely or Isolated: Not on file Intimate Partner Violence: Unknown (04/23/2023) Received from [facility] Abuse Screen Unsafe at Home or Work/School: Not on file Feels Threatened by Someone?: Not on file Does Anyone Keep You from Contacting Others or Doint Things Outside the Home?: Not on file Physical Sign of Abuse Present: Not on file Housing Stability: Unknown (04/23/2023) Received from [facility] Housing Stability Current Living Arrangements: Not [...] Transcatheter Aortic Valve Replacement, according to the [facility] National Coverage Decision.?Case data will be extracted and entered into the [facility] Clinical Registry/[facility] Research as required by the National Coverage Decision.? NCT Identifier [id number]. 12/27/2024 S/P TAVR with 23 mm Maria D [address] Brian Flores MD ([facility]). Cardiac Diagnostics: Echo - 10/03/2024: LVEF [...] Ultra prosthesis per Dr. Brian Flores MD ([facility]). - Routine pre and post-op care. [...] Non-Small Cell Lung Cancer - Follows with [facility]. Last seen 12/11/2024. - Home medication: osimeritinib mesylate 80 mg PO daily. documented in this encounter Plan of Treatment Upcoming Encounters Date Type Department Care Team (Late st Contact Info) Description 03/06/2025 10:00 AM EDT Appointment Medical Office Building Cardiac Diagnostic Testing Medical Office Building Echo Lab [address], [address] [place] [address] 03/06/2025 11:30 AM EDT Office Visit [facility] [place] [address], [address] [place] [phone] Dian Yancey PA [address] [place] [address] 03/26/2025 11:10 AM EDT Office Visit Medical Office Building Surgery Spine & [facility] [address], [address] [place] [address] Abdelrahman Betancur MD [address] [place] [address] 04/02/2025 9:40 AM EDT Appointment [facility] Radiology [address] [place] [id number] 04/02/2025 10:45 AM EDT Appointment [facility] [address] [place] [address] 04/02/2025 1:15 PM EDT Clinical Support [facility] [address] 2nd [place] [address] 04/02/2025 1:40 PM EDT Office Visit [facility] [address] 2nd [place] [address] Rudolph Dillard MD [address] [address] 04/08/2025 7:30 AM EDT Hospital Encounter [facility] Operating Room [address] [place] [address] Abdelrahman Betancur MD [address] [place] [address] 04/08/2025 7:30 AM EDT - 04/08/2025 10:15 AM EDT Surgery [facility] Operating Room [address] [place] [address] Abdelrahman Betancur MD [address] [place] [address] ARTHROPLASTY, HIP, TOTAL, ANTERIOR APPROACH [20154 (CPT )] 04/23/2025 11:00 AM EDT Office Visit Medical Office Building Surgery Sp[facility] [address], [address] [place] [address] Renetta Stoner PA [address] [place] [address] 05/21/2025 11:10 AM EST Office Visit Medical Office Building Surgery [facility] [address], [address] [place] [address] Abdelrahman Betancru MD [address] [place] [address] 01/08/2026 2:00 PM EDT Appointment Medical Office Building Cardiac Diagnostic Testing Medical Office Building Echo Lab [address], [address] [place] [address] 01/08/2026 3:00 PM EDT Office Visit [facility] [place] [address], [address] [place] [address] Dian Yancey PA [address] [place] [address] Scheduled Procedures Name Priority Associated Diagnoses Date/Ti [...] increased in setting of high cardiac output. us Kaleb Bond APRN CV ECHO PROCEDURES Final Re sult * (ABNORMAL) Magnesium (12/28/2024 4:56 AM EDT) Magnesium, Plasma 1.6(L) 1.9 - 2.4 mg/dL 12/28/2024 5:33 AM EDT [facility] Blood Venous blood specimen / Unknown Venipuncture / Unknown 12/28/2024 4:56 AM EDT 12/28/2024 5:02 AM EDT Kaleb Bond APRN LAB BLOOD ORDERABLES Final Result [facility] [address] [place] [address] * Basic metabolic panel (12/28/2024 4:56 AM EDT) Glucose, Plasma 99 74 - 99 mg/dL 12/28/2024 5:33 AM EDT [facility] BUN, Plasma 20 8 - 23 mg/dL 12/28/2024 5:33 AM EDT [facility] Creatinine, Plasma 0.83 0.60 - 1.10 mg/dL 12/28/2024 5:33 AM EDT [facility] BUN/Creatinine Ratio 24 12/28/2024 5:33 AM EDT [facility] Sodium, Plasma 140 136 - 145 mmol/L 12/28/2024 5:33 AM EDT [facility] Potassium, Plasma 4.1 3.6 - 4.9 mmol/L 12/28/2024 5:33 AM EDT [facility] Chloride, Plasma 106 97 - 107 mmol/L 12/28/2024 5:33 AM EDT [facility] CO2, Plasma 23 22 - 29 mmol/L 12/28/2024 5:33 AM EDT [facility] Anion Gap 11 6 - 16 mmol/L 12/28/2024 5:33 AM EDT [facility] Total Calcium, Plasma 8.9 8.9 - 10.2 mg/dL 12/28/2024 5:33 AM EDT [facility] eGFRcr 75.9 mL/min/1.7 3m*2 12/28/2024 5:33 AM EDT [facility] Comment:Reported eGFRcr in m L/min/1.73m2 is based the CKD-EPI 2020 equation that does not use a race coefficient. Blood Venous blood specimen / Unknown Venipuncture / Unknown 12/28/2024 4:56 AM EDT 12/28/2024 5:02 AM EDT Kaleb Bond APRN LAB BLOOD ORDERABLES Final Result [facility] [address] [place] [address] * (ABNORMAL) CBC (12/28/2024 4:56 AM EDT) WBC Count 8.36 3.70 - 10.30 10*3/uL LAB HEMATOLOGY METHOD 12/28/2024 5:15 AM EDT [facility] RBC Count 3.29(L) 3.90 - 5.20 10*6/uL LAB HEMATOLOGY METHOD 12/28/2024 5:15 AM EDT [facility] HGB 10.0(L) 11.2 - 15.7 g/dL LAB HEMATOLOGY METHOD 12/28/2024 5:15 AM EDT [facility] HCT 30.3(L) 34.0 - 45.0 % LAB HEMATOLOGY METHOD 12/28/2024 5:15 AM EDT [facility] Platelet Count 122(L) 155 - 369 10*3/uL LAB HEMATOLOGY METHOD 12/28/2024 5:15 AM EDT [facility] MCV 92 79 - 98 fL LAB HEMATOLOGY METHOD 12/28/2024 5:15 AM EDT [facility] MCH 30.4 26.0 - 32.0 pg LAB HEMATOLOGY METHOD 12/28/2024 5:15 AM EDT [facility] MCHC 33.0 30.7 - 35.5 g/dL LAB HEMATOLOGY METHOD 12/28/2024 5:15 AM EDT [facility] RDW 13.5 11.5 - 14.5 % LAB HEMATOLOGY METHOD 12/28/2024 5:15 AM EDT [facility] MPV 10.8 8.8 - 12.5 fL LAB HEMATOLOGY METHOD 12/28/2024 5:15 AM EDT [facility] nRBC 0.0 <=0.0 per 100 WBCs LAB HEMATOLOGY METHOD 12/28/2024 5:15 AM EDT [facility] Blood Venous blood specimen / Unknown Venipuncture / Unknown 12/28/2024 4:56 AM EDT 12/28/2024 5:03 AM EDT Kaleb Bond APRN LAB BLOOD ORDERABLES Final Result [facility] [address] [place] [address] * ECG Adult - POD#1 (12/28/2024 2:41 AM EDT) EKG DIAGNOSIS CLASS Abnormal MUSE ECG Ventricular Rate 85 BPM MUSE ECG Atrial Rate 85 BPM MUSE ECG NE Interval 150 ms MUSE ECG QRSD Interval 90 ms MUSE ECG QT Interval 386 ms MUSE ECG QTC Interval 459 ms MUSE ECG P [place]ane -1 degrees MUSE ECG R [place] -36 degrees MUSE ECG T Wave [place] 20 degrees MUSE ECG Diagnosis Normal sinus rhythm MUSE ECG Diagnosis Left axis deviation MUSE ECG Diagnosis Anteroseptal infarct , age undetermined MUSE ECG Diagnosis MUSE ECG Diagnosis MUSE ECG Diagnosis Confirmed by Bret Yepez ([id number]) on 12/28/2024 5:35:03 PM MUSE ECG 12/28/2024 2:41 AM EDT 12/28/2024 5:35 PM EDT Kaleb Bond APRN ECG ORDERABLES Final Resul [...] Kyle Nelson MD on 12/28/2024 8:08 AM us Kaleb Bond APRN IMG XR PROCEDURES Final Res ult * (ABNORMAL) Basic metabolic panel (12/27/2024 1:09 PM EDT) Glucose, Plasma 92 74 - 99 mg/dL 12/27/2024 2:24 PM EDT [facility] BUN, Plasma 22 8 - 23 mg/dL 12/27/2024 2:24 PM EDT [facility] Creatinine, Plasma 0.83 0.60 - 1.10 mg/dL 12/27/2024 2:24 PM EDT [facility] BUN/Creatinine Ratio 27 12/27/2024 2:24 PM EDT [facility] Sodium, Plasma 141 136 - 145 mmol/L 12/27/2024 2:24 PM EDT [facility] Potassium, Plasma 3.2(L) 3.6 - 4.9 mmol/L 12/27/2024 2:24 PM EDT [facility] Chloride, Plasma 107 97 - 107 mmol/L 12/27/2024 2:24 PM EDT [facility] CO2, Plasma 22 22 - 29 mmol/L 12/27/2024 2:24 PM EDT [facility] Anion Gap 12 6 - 16 mmol/L 12/27/2024 2:24 PM EDT [facility] Total Calcium, Plasma 8.9 8.9 - 10.2 mg/dL 12/27/2024 2:24 PM EDT [facility] eGFRcr 75.9 mL/min/1.7 3m*2 12/27/2024 2:24 PM EDT [facility] Comment:Reported eGFRcr in m L/min/1.73m2 is based the CKD-EPI 2020 equation that does not use a race coefficient. Blood Venous blood specimen / Unknown Venipuncture / Unknown 12/27/2024 1:09 PM EDT 12/27/2024 1:45 PM EDT Kaleb Bond APRN LAB BLOOD ORDERABLES Final Result [facility] [address] [place] [address] * (ABNORMAL) CBC (12/27/2024 1:09 PM EDT) WBC Count 9.03 3.70 - 10.30 10*3/uL LAB HEMATOLOGY METHOD 12/27/2024 1:53 PM EDT [facility] RBC Count 3.45(L) 3.90 - 5.20 10*6/uL LAB HEMATOLOGY METHOD 12/27/2024 1:53 PM EDT [facility] HGB 10.4(L) 11.2 - 15.7 g/dL LAB HEMATOLOGY METHOD 12/27/2024 1:53 PM EDT [facility] HCT 31.5(L) 34.0 - 45.0 % LAB HEMATOLOGY METHOD 12/27/2024 1:53 PM EDT [facility] Platelet Count 143(L) 155 - 369 10*3/uL LAB HEMATOLOGY METHOD 12/27/2024 1:53 PM EDT [facility] MCV 91 79 - 98 fL LAB HEMATOLOGY METHOD 12/27/2024 1:53 PM EDT [facility] MCH 30.1 26.0 - 32.0 pg LAB HEMATOLOGY METHOD 12/27/2024 1:53 PM EDT [facility] MCHC 33.0 30.7 - 35.5 g/dL LAB HEMATOLOGY METHOD 12/27/2024 1:53 PM EDT [facility] RDW 13.6 11.5 - 14.5 % LAB HEMATOLOGY METHOD 12/27/2024 1:53 PM EDT [facility] MPV 11.1 8.8 - 12.5 fL LAB HEMATOLOGY METHOD 12/27/2024 1:53 PM EDT [facility] nRBC 0.0 <=0.0 per 100 WBCs LAB HEMATOLOGY METHOD 12/27/2024 1:53 PM EDT [facility] Blood Venous blood specimen / Unknown Venipuncture / Unknown 12/27/2024 1:09 PM EDT 12/27/2024 1:41 PM EDT Kaleb Bond APRN LAB BLOOD ORDERABLES Final Result [facility] [address] [place] [address] * ECG Adult (12/27/2024 11:49 AM EDT) EKG DIAGNOSIS CLASS Abnormal MUSE ECG Ventricular Rate 78 BPM MUSE ECG Atrial Rate 78 BPM MUSE ECG NE Interval 162 ms MUSE ECG QRSD Interval 102 ms MUSE ECG QT Interval 428 ms MUSE ECG QTC Interval 487 ms MUSE ECG P [place] Plane 36 degrees MUSE ECG R [place] 14 degrees MUSE ECG T Wave [place] -39 degrees MUSE ECG Diagnosis Normal sinus rhythm MUSE ECG Diagnosis Anteroseptal infarct , age undetermined MUSE ECG Diagnosis T wave abnormality, consider inferior ischemia MUSE ECG Diagnosis Long QTc MUSE ECG Diagnosis Abnormal ECG MUSE ECG Diagnosis MUSE ECG Diagnosis Confirmed by Doe Lion ([id number]) on 12/27/2024 2:49:27 PM MUSE ECG 12/27/2024 11:4 9 AM EDT 12/27/2024 2:49 PM EDT us Dat Dickson [employer] TECHNICAL OFFICER ECG ORDERABLES Final Resu lt MUSE ECG [...] is no recent study available for direct [id number] comparison. Left Ventricle The left ventricle is [...] is no recent study available for direct [id number] comparison. us Brian Flores MD CV ECHO PROCEDURES Final [...] was obtained: 1) Right common femoral vein: 8-[place] short Terumo sheath 2) Right common femoral artery: 6-[place]izen [place] short Terumo sheath 3) Left common femoral artery: 7-[place]izen [place] short Terumo sheath The 6-[place]izen [place] right common femoral arterial sheath was upsized to an 8-[place]izen [place] sheath after 2 Preclose sutures were deployed. Heparin was given for a goal ACT>250. Antibiotics were given. The 8-[place]izen [place] right femoral arterial sheath was upsized to the 14-[place] Zavala sheath over a Safari wire. A temporary pacemaker wire was advanced from the venous sheath to the right ventricular apex. Thresholds were tested and confirmed to be adequate. A 6-[place] angled pigtail catheter was inserted from the left common femoral arterial sheath to the right coronary cusp. An aortogram was performed to confirm the correct coplanar angle. The aortic valve was crossed from the E-sheath using an exchange-length J-tip wire and a 6-[place]izen [place] AL1 diagnostic catheter. The AL1 catheter was removed and a 6- [place] angled pigtail catheter was advanced over the [...] Aortic AO: 113/49 (74) mmHg us Brian Flores MD CV CARDIAC CATH PROCEDURES Final Result * POCT ACT (12/27/2024 10:32 AM EDT) ACT (Low Range) 336 65 - 400 seconds 01/21/2025 9:15 AM EDT [facility] [employer] ID Bertha Franz 01/21/2025 9:15 AM EDT [facility] ACT Device ID [id number] 01/21/2025 9:15 AM EDT [facility] Comment 01/21/2025 9:15 AM EDT [facility] Comment: ACT performed by staff at [...] TEST DOCKED DEVICE UNSOLICITED RESULTS Final Result [facility] [address] [facility] [address] [place] [address] * POCT creatinine (12/27/2024 8:29 AM EDT) Creatinine, Point of Care 1.0 0.6 - 1.1 mg/dL 12/27/2024 8:33 AM EDT [facility] POCT eGFR 61 mL/min/1. 73m*2 12/27/2024 8:33 AM EDT [facility] [employer] ID Nela Perez 12/27/2024 8:33 AM EDT [facility] Device ID [id number] 12/27/2024 8:33 AM EDT [facility] Comment 12/27/2024 8:33 AM EDT [facility] Comment:Testing performed on i-STAT at the point of care. Reported eGFRcr in mL/min/1.73m2 is based the CKD-EPI 2020 equation that does not use a race coefficient. Blood Venous blood specimen / Unknown 12/27/2024 8:29 AM EDT 12/27/2024 8:33 AM EDT Brian Flores MD LAB POINT OF CARE TEST DOCKED DEVICE UNSOLICITED RESULTS Final Result Performing Organization Address City/[facility]/ZIP Co de Phone Number [facility] [address] LAB 800 [place] [address] * Type and Screen (12/27/2024 8:24 AM EDT) ABO/Rh O Positive 12/27/2024 8:05 AM EDT BLOOD BANK Antibody Screen Negative 12/27/2024 8:05 AM EDT BLOOD BANK Specimen Expiration 12/30/2024 23:59 12/27/2024 8:05 AM EDT BLOOD BANK Blood Venous blood specimen / Unknown Venipuncture / Unknown 12/27/2024 8:24 AM EDT 12/27/2024 8:33 AM EDT Glynn Bella MD LAB BLOOD BANK TEST ORDERABLES Final Result Performing Organization Address [facility]/RUST Co de Phone Number BLOOD BANK [address] [place] [address], * N-Terminal Probnp (12/27/2024 8:24 AM EDT) N-Terminal, PROBNP, Plasma 348 0 - 899 pg/mL 12/27/2024 9:14 AM EDT [facility] Blood Venous blood specimen / Unknown Venipuncture / Unknown 12/27/2024 8:24 AM EDT 12/27/2024 8:34 AM EDT Dat Dickson APRN LAB BLOOD ORDERABLES Final Result Performing Organization Address City/[facility]/ZIP Co de Phone Number [facility] [address] [place] [address] * (ABNORMAL) Basic metabolic panel (12/27/2024 8:24 AM EDT) Glucose, Plasma 94 74 - 99 mg/dL 12/27/2024 9:14 AM EDT [facility] BUN, Plasma 24(H) 8 - 23 mg/dL 12/27/2024 9:14 AM EDT [facility] Creatinine, Plasma 0.91 0.60 - 1.10 mg/dL 12/27/2024 9:14 AM EDT [facility] BUN/Creatinine Ratio 26 12/27/2024 9:14 AM EDT [facility] Sodium, Plasma 143 136 - 145 mmol/L 12/27/2024 9:14 AM EDT [facility] Potassium, Plasma 3.5(L) 3.6 - 4.9 mmol/L 12/27/2024 9:14 AM EDT [facility] Chloride, Plasma 106 97 - 107 mmol/L 12/27/2024 9:14 AM EDT [facility] CO2, Plasma 23 22 - 29 mmol/L 12/27/2024 9:14 AM EDT [facility] Anion Gap 14 6 - 16 mmol/L 12/27/2024 9:14 AM EDT [facility] Total Calcium, Plasma 9.5 8.9 - 10.2 mg/dL 12/27/2024 9:14 AM EDT [facility] eGFRcr 68.0 mL/min/1.7 3m*2 12/27/2024 9:14 AM EDT [facility] Comment:Reported eGFRcr in m L/min/1.73m2 is based the CKD-EPI 2020 equation that does not use a race coefficient. Blood Venous blood specimen / Unknown Venipuncture / Unknown 12/27/2024 8:24 AM EDT 12/27/2024 8:34 AM EDT us Dat Dickson APRN LAB BLOOD ORDERABLES Final Result [facility] [address] [place] [address] * Hemogram (CBC) (12/27/2024 8:24 AM EDT) WBC Count 7.04 3.70 - 10.30 10*3/uL LAB HEMATOLOGY METHOD 12/27/2024 8:52 AM EDT [facility] RBC Count 3.90 3.90 - 5.20 10*6/uL LAB HEMATOLOGY METHOD 12/27/2024 8:52 AM EDT [facility] HGB 11.8 11.2 - 15.7 g/dL LAB HEMATOLOGY METHOD 12/27/2024 8:52 AM EDT [facility] HCT 35.4 34.0 - 45.0 % LAB HEMATOLOGY METHOD 12/27/2024 8:52 AM EDT [facility] Platelet Count 170 155 - 369 10*3/uL LAB HEMATOLOGY METHOD 12/27/2024 8:52 AM EDT [facility] MCV 91 79 - 98 fL LAB HEMATOLOGY METHOD 12/27/2024 8:52 AM EDT [facility] MCH 30.3 26.0 - 32.0 pg LAB HEMATOLOGY METHOD 12/27/2024 8:52 AM EDT [facility] MCHC 33.3 30.7 - 35.5 g/dL LAB HEMATOLOGY METHOD 12/27/2024 8:52 AM EDT [facility] RDW 13.5 11.5 - 14.5 % LAB HEMATOLOGY METHOD 12/27/2024 8:52 AM EDT [facility] MPV 10.9 8.8 - 12.5 fL LAB HEMATOLOGY METHOD 12/27/2024 8:52 AM EDT [facility] nRBC 0.0 <=0.0 per 100 WBCs LAB HEMATOLOGY METHOD 12/27/2024 8:52 AM EDT [facility] Blood Venous blood specimen / Unknown Venipuncture / Unknown 12/27/2024 8:24 AM EDT 12/27/2024 8:33 AM EDT us Dat Dickson LIFE SCIENCE TECHNICAL OFFICER LAB BLOOD ORDERABLES Final Result [facility] [address] [place] [address] documented in this encounter Visit Diagnoses Diagnosis Nonrheumatic aortic valve stenosis- Primary Nonrheumatic aortic valve stenosis S/P TAVR (transcatheter aortic valve replacement) Nonrheumatic aortic valve stenosis Arthritis of right hip documented in this [...] Oral, 3 times daily PRN, Starting on Tue12/27/24 at 1252, Until Tue12/28/24 at 1515, Routine, [...] 12/27/24 at 0900, Routine, Holding - Preprocedure 0940 (Given - Provider: Nela Perez, SONI) amLODIPine (Norvasc) tablet 5 mg 5 mg, Oral, Daily, First dose on Tue12/28/24 at 0900, Until Discontinued, Routine 0809 (Given - Provid er: Shravan Ivory RN) aspirin chewable tablet 81 mg 81 mg, Oral, Daily, First dose on Tue12/28/24 at 0900, Until Discontinued 08 (Given - Provid er: Shravan Ivory RN) ceFAZolin (Ancef) injection 2 g (COMPLETED) 2 g, Intravenous, Once, 1 dose, On Zenia 12/27/24 at 0900, Routine, Anesthesia Intraprocedure 09 (Given - Provider: Nela Perez RN) hydroCHLOROthiazide (HYDRODiuril) tablet 25 mg 25 mg, Oral, Daily, First dose on Tue12/28/24 at 0900, Until Discontinued, Routine 808 (Given - Provid er: Shravan Ivory RN) lactated Ringer's infusion (COMPLETED) 100 mL/hr, Intravenous, Once, 1 dose, On Zenia 12/27/24 at 0900, Routine 0830 (Not Given - [...] on Tue12/27/24 at 1800, Until Discontinued, Routine 1855 (Given - Provider: Randa Fraga RN) potassium chloride CR (Klor-Con) ER tablet 10 mEq 10 mEq, Oral, Daily, First dose on Tue12/28/24 at 0900, Until Discontinued, Routine 08 (Given - Provid er: Shravan Ivory RN) potassium chloride CR (Klor-Con) ER tablet 40 mEq (COMPLETED) 40 mEq, Oral, Every 4 hours, 2 doses, First dose on Tue12/27/24 at 1700, Last dose on Zenia 12/27/24 at 2100, Routine 1757 (Given - Provider: Randa Fraga, RN)2036 (Given - Provider: Lokesh Reddy RN) sodium chloride 0.9 % flush 10 mL (CANCELED)(Linked Group 1) 10 mL, Intravenous, Every 12 hours, First dose on Zenia 12/27/24 at 0900, Until Discontinued, Routine, Holding - Preprocedure 0928 (Given - Provider: Nela Perez RN) vancomycin in NS (Vancocin) IVPB 1,250 mg [...] muscle spasms 1438 (Given - Provider: Lindsay Fraga RN) Linked Groups Order Group 1: sodium chloride [...] Noted Date Diagnosed Date Autogenerated Problem 01/01/2025 Assessment Noted Time PHQ-9 Depression Total Score: 0 10/30/19 12:42 PM EDT A fall risk assessment has been complete d for the patient 12/11/2024 3:00 PM EDT A Body Mass Index follow-up plan has been documented for the patient 12/28/2024 12:16 PM EDT documented as of this encounter Care Teams Artificial Fly Tier Relationship Specialty Start Date End Date Wan Santoro MD [id number] [place] [address] PCP - General 01/20/21 Dalton Hurley MD 800 [facility] [address] [place] [address] Consulting Physician Radiation Therapy 03/27/21 Geovanny Dominguez MD [address] [facility] [address] [place] [address] Surgeon Neurosurgery 05/21/21 Rudolph Dillard MD 800 [facility] 2nd [place] [address] Consulting Physician Medical Oncology 09/22/21 Abdiel Vargas APRN 800 [facility] [address] [place] [address] Nurse Practitioner Internal Medicine 04/09/22 Rodney Maria MD [address] [place] [address] Referring Physician 11/14/24 Brian Flores MD 800 [place] [address] Consulting Physician Cardiology 11/14/24 documented as of this encounter
--- OUTSIDE RECORDS SUMMARY | 2025-01-23 15:30 | XMS_ITS | Encounter Summary ---
Author Organization [facility] Address [address] [place] [address] Care Team Providers Care Meteorologist In Charge Name Role Phone Wan Santoro MD Primary Care Provider [phone] Dalton Hurley MD Unavailable [phone] Geovanny Dominguez MD Unavailable [phone] Rudolph Dillard MD Unavailable [phone] Abdiel Vargas CONTRACT LOADER Unavailable [phone] Rodney Maria MD Unavailable [phone] Brian Flores MD Unavailable [phone] Encounter Details Date Type Department Care Team (Late st Contact Info) Description 01/23/2025 3:30 PM EDT Pre-Admission Testing [facility] Anesthesia [address] [place] [address] Anesthesia Record Procedure Summary Procedure Name Responsible Anesthesiologist Anesthesia Start Time Anesthesia Stop Time ARTHROPLASTY, HIP, TOTAL, ANTERIOR APPROACH (Left: Hip) Felipe Gómez MD 02/11/25 1128 02/11/25 1314 Events Date Time Event Comment 02/11/2025 1004 1128 In Room 1128 An Start The patient was reevaluated immediately before sedation and remains eligible for anesthesia plan. 1129 An Start Data 1134 An Induction The patient was reevaluated immediately before moderate or deep sedation use and before anesthesia induction. 1138 An Intubation 1139 Anesthesia Ready 1158 Proc Start 1257 Proc Fin 1303 An Extubation 1303 an stop data 1305 Out of Room 1314 Handoff to Receiving I compl eted my handoff to the receiving clinician during which we: 1. Identified the patient 2. Identified the responsible provider 3. Reviewed the pertinent medical history 4. Discussed the surgical course 5. Reviewed intra-op anesthesia management and issues during anesthesia 6. Set expectations for post-procedure period 7. Allowed opportunity for questions and acknowledgement of understanding. 1314 An Stop Meds * Agents No agents on file. * Blood No blood administrations on file. Lines, Drains, and Airways Type Details Placement Removal Wound 02/11/25; 1243; Surgical; Open Surg; Leg; Anterior, Left, Proximal, Upper 02/11/25 1243 by Tobin Edmondson Peripheral IV Placement Date: 02/11/25; Placement Time: 927; Catheter Size: 20 G; Orientation: Posterior, Right; Location: Forearm; Insertion Attempts: 1; Patient Tolerance: Tolerated well; Removal Date: 02/12/25; Removal Time: 1426; Removal Reason: Discharge 02/11/25 09 by Holli Pruitt RN 02/12/25 1426 by Noni Kirk ETT Placement Date: 02/11/25; Placement Time: 1138 (created via procedure documentation); Technique: Direct laryngoscopy; Type: ETT - single; Single Lumen Tube Size: 7 mm; Cuffed: Yes; Laryngoscope: Ashly; Location: Oral; Grade View: Grade I; Insertion Attempts: 1; Placement Verification: Auscultation, Capnometry; Airway Comments: Atraumatic. No change to dentition. ; Placed by: Anesthesiologist; Removal Date: 02/11/25; Removal Time: 1303 02/11/25 1138 by Felipe Gómez MD 02/11/25 1303 by Fortino Zhou CRNA documented in this encounter Social History Tobacco [...] on file documented as of this encounter Miscellaneous Notes * PAT Evaluation Note - Jade Juliansegundo Bhatia, PRERNA - 01/23/2025 3:30 PM EDT HPI Priya Lynn is a 69 y.o. female who presents with Pre-op Diagnosis * Arthritis of left hip [M16.12] now scheduled for ARTHROPLASTY, HIP, TOTAL, ANTERIOR APPROACH (Left) with Abdelrahman [facility]ancur [facility] on [facility] Past Medical History[1] Family History[2] Social History[3] Surgical History[4] Allergies[5] MEDICATIONS: Current Medications[6] ROS Anesthesia: Date of last anesthetic: 12/2020 for lung bx history of previous anesthesia. Does not have a history of anesthetic complications, malignant hyperthermia, obstructive sleep apnea and PONV. Cardiovascular: valvular heart disease (severe . s/p TAVR 12/27/24. RECS: - Antiplatelet plan: Continue ASA 81 mg daily indefinitely. - Antibiotics prior to any dental procedures for life. - [facility] 1 month with ECHO.). Does not have CAD, CHF, dyspnea, dysrhythmias, hyperlipidemia, pacemaker, past MA or syncope. hypertension: Exercise tolerance is 1 flight of stairs. Does not have chest pain. Cardio additional comments: Uses walker due to severe hip pain/osteoarthritis. Drives, performs grocery shopping using shoppingcart for support. Can lay flat. Denies any active current cardiac complaints. ECHO- 10/04/24: LVEF 55%, AV area 0.8cm, peak velocity 4.3, mean gradient 37mmhg, max gradient 77mg. ?? Aortic Valve: There is a transcatheter bioprosthetic valve (23 mm Kerry) that is well-seated. The bioprosthetic leaflets are thin and move normally. There is no valvular regurgitation. There is no paravalvular leak. Peak gradient is 26 mmHg. Mean gradient is 15 mmHg. DVI 0.53. EOAi 1 cm2/m2. SV91 ml. The gradient is abnormally high for this prosthetic valve due to high cardiac output. ?? LV systolic fct is vigorous with EF 65-70%. ?? RV systolic fct is grossly normal. ?? No pericardial effusion. ?? Compared to the most recently available prior study, and allowing for differences in image quality and technique, aortic valve gradient has increased in setting of high cardiac output. . Respiratory: lung cancer (diagnosed 2020 s/p Gamma knife, CHEMO & XRT..). Does not have home oxygen. Patienthas no dyspnea.no asthma: no COPD: Has not had an upper respiratory infection in last 30 days. Has not had bronchitis in the last 30 days, pneumonia in the last 30 days or COVID in the last 30 days. HEENT: missing teeth.Does not have difficulty swallowing, chipped teeth or loose teeth.Does not have temporomandibular joint syndrome. Does not have hearing loss. Neurological: Aphasia: .. no seizures: Did not have a cerebrovascular accident.Does not have TIA. Neuro additional comments: Hx brain METS Musculoskeletal: arthritis. Does not have cervical spine limited mobility. Autoimmune: Does not have lupus or rheumatoid arthritis. Gastrointestinal: Does not have GERD.Does not have cirrhosis or hepatitis. Genitourinary: Does not have renal disease. Hematological/Lymphatic: History of no DVT. History of no pulmonary embolism. Not in a hypercoagulable state. history of chemotherapy without cardiopulmonary complications. history of radiation Does not have MRSA or tuberculosis. Hem/Lymph ROS additional comments: ASA 81 mg daily uterine, ovarian in 2006 s/p chemo and surgical resection Endocrine/Metabolic: does not have diabetes mellitus. Does not have thyroid disorder. Lab Results Component Value Date WBC 8.36 12/28/2024 HGB 10.0 (L) 12/28/2024 HCT 30.3 (L) 12/28/2024 MCV 92 12/28/2024 PLT 122 (L) 12/28/2024 Lab Results Component Value Date GLUCOSE 99 12/28/2024 BUN 20 12/28/2024 CREATININE 0.83 12/28/2024 BCR 24 12/28/2024 NA 140 12/28/2024 K 4.1 12/28/2024 CL 106 12/28/2024 CO2 23 12/28/2024 ALBUMIN 4.0 12/11/2024 ALKPHOS 70 12/11/2024 BILITOT 0.7 12/11/2024 Lab Results Component Value Date HGBA1C 4.9 09/28/2024 No results found for: INR , PROTIME Visit Vitals OB Status Hysterectomy Smoking Status Never 12/28/2024 11:08 AM Vitals Systolic 129 Diastolic 73 Heart Rate 83 Temp 37.0 C Resp 20 Physical Exam Anesthesia Plan ASA 3 Anesthesia technique(s) discussed with the patient/family: general Comment: NIA Phone screen. S/p TAVR 12/27/24. Discussed timing of surgery with surgery team. Staff message to surgery team from [facility]: OK to proceed with ortho surgery 30 days after TAVR. Cardiology Discharge Instructions: Antiplatelet plan: Continue ASA 81 mg daily indefinitely. Anti biotics prior to any dental procedures for life. Evelyn Julian APRN [1] Past Medical History: Diagnosis Date Arthritis Cancer (CMS/HCC) uterine, ovarian, with brain mets High blood pressure Osteoarthritis [2] Family History Problem Relation Name Age of Onset Cervical cancer Mother Lung cancer Father Lung cancer Brother Liver cancer Brother Anesthesia problems Neg Hx Malig Hyperthermia Neg Hx [3] Social History Tobacco Use Smoking status: Never Smokeless tobacco: Never Vaping Use Vaping status: Never Used Substance Use Topics Alcohol use: Never Drug use: Never [4] Past Surgical History: Procedure Laterality Date BRONCHOSCOPY RIGID / FLEXIBLE N/A CHOLECYSTECTOMY N/A COLONOSCOPY 08/02/2023 GAMMA KNIFE 2020 HYSTERECTOMY N/A LUNG BIOPSY [5] No Known Allergies [6] Current Outpatient Medications: amLODIPine, Take 1 tablet by mouth daily. aspirin, Take 1 tablet by mouth daily. lisinopril-hydroCHLOROthiazide, Take 2 tablets by mouth daily. meloxicam, Take 1 tablet by mouth daily. Osimertinib Mesylate, Take 1 tablet by mouth 1 (one) time each day. potassium chloride CR, Take 1 tablet by mouth daily. Do not crush, chew, or split. * Preprocedure Instructions - Evelyn Julian APRN - 01/23/2025 3:30 PM EDT Home Medication Instructions Current Medications Medication Instructions amLODIPine (Norvasc) 5 MG tablet Take morning of surgery aspirin 81 MG EC tablet Take morning of surgery lisinopril-hydroCHLOROthiazide 20-12.5 MG tablet Hold day of surgery meloxicam (Mobic) 15 MG tablet Hold 7 days before surgery Osimertinib Mesylate 80 MG tablet Hold 7 days before surgery per surgeon potassium chloride CR (Klor-Con) 10 MEQ ER tablet Hold day of surgery General Preoperative Instructions You will be called the business day before surgery with your arrival time Do not eat or drink anything after midnight except water with your medications unless other instructions are given No alcohol or smoking prior to surgery Arrive on time to avoid delays Parking/Registration procedure explained You MUST have a responsible adult available for transport to and from hospital Visitation policy for the day of surgery reviewed Bring insurance card, photo ID, along with power of commercial attorney, guardianship or advanced directives if applicable Do not bring money, jewelry or other valuables Hibiclens bathing instructions reviewed if applicable Notify surgeon of fever, illness, any changes or if you decide not to have surgery documented in this encounter Plan of Treatment Upcoming Encounters Date Type Department Care Team (Late st Contact Info) Description 03/06/2025 10:00 AM EDT Appointment Medical Office Building Cardiac Diagnostic Testing Medical Office Building Echo Lab [address] [facility], [address] [place] [address] 03/06/2025 11:30 AM EDT Office Visit [facility] [address] [facility], [address] [place] [address] Dian Yancey PA [address] [place] [address] 03/26/2025 11:10 AM EDT Office Visit Medical Office Building [facility] [address] [facility], [address] [place] [address] Abdelrahman Betancur MD [address] [facility] [address] [place] [address] 04/02/2025 9:40 AM EDT Appointment [facility] Radiology [address] [place] [address] 04/02/2025 10:45 AM EDT Appointment [facility] [address] [place] [address] 04/02/2025 1:15 PM EDT Clinical Support [facility] [address] [facility], [address]nd [place] [phone] 04/02/2025 1:40 PM EDT Office Visit [facility] [address] [facility], [address] [place] [phone] Rudolph Dillard MD [address] [address] 04/08/2025 7:30 AM EDT Hospital Encounter [facility] Operating Room [address] [place] [phone] Abdelrahman Betancur MD [address] [place] [address] 04/08/2025 7:30 AM EDT - 04/08/2025 10:15 AM EDT Surgery [facility] S Operating Room [address] [place] [address] Abdelrahman Betancur MD [address] [place] [address] ARTHROPLASTY, HIP, TOTAL, ANTERIOR APPROACH [16904 (CPT )] 04/23/2025 11:00 AM EDT Office Visit Medical Office Building [facility] [address], [address] [place] [address] Renetta Stoner PA [address] [place] [address] 05/21/2025 11:10 AM EST Office Visit Medical Office Building [facility] [address] [place] [address] Abdelrahman Betancur MD [address] [place] [address] 01/08/2026 2:00 PM EDT Appointment Medical Office Building Cardiac Diagnostic Testing Medical Office Building Echo Lab [address] [facility], [address] [place] [address] 01/08/2026 3:00 PM EDT Office Visit [facility] [place] [facility] [address] [facility], [address] [place] [address] Dian Yancey PA [address] [place] [address] Scheduled Procedures Name Priority Associated Diagnoses Date/Ti me ARTHROPLASTY, HIP, TOTAL, ANTERIOR APPROACH Arthritis of right hip 04/08/2025 7:30 AM EDT documented as of this encounter Goals Goal Patient Goal Type Associated Problems Recent Progress Patient-Stated? Author Autogenerat ed Goal Care Plan Autogenerated Problem No Latisha Sun documented as of this encounter Visit Diagnoses Not on filedocumented in this encounter Additional Health Concerns Active [...] documented as of this encounter Care Teams Meteorologist In Charge Relationship Specialty Start Date End Date Wan Santoro MD [address] [facility] [address] [place] [address] PCP - General 01/20/21 Dalton Hurley MD [address] [facility] [address] [place] [address] Consulting Physician Radiation Therapy 03/27/21 Geovanny Dominguez MD [address] [place] [phone] Surgeon Neurosurgery 05/21/21 Rudolph Dillard MD [address] [phone] Consulting Physician Medical Oncology 09/22/21 Abdiel Vargas, CONTRACT LOADER 800 [facility] [address] [place] [address] Nurse Practitioner Internal Medicine 04/09/22 Rodney Maria MD [address] [address] Referring Physician 11/14/24 Brian Flores MD 800 [place] [phone] Consulting Physician Cardiology 11/14/24 documented as of this encounter
--- OUTSIDE RECORDS SUMMARY | 2025-02-11 07:40 | XMS_ITS | Encounter Summary ---
Author Organization [facility] Address [address] 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 Role Phone Wan Santoro MD Primary Care Provider Dalton Hurley MD Unavailable [phone] Geovanny Dominguez MD Unavailable [phone] Rudolph Dillard MD Unavailable [phone] Abdiel Vargas APRN Unavailable [phone] Rodney Maria MD Unavailable [phone] Brian Flores MD Unavailable [phone] Reason for Referral * Consultation (Routine) - Authorized Specialty Diagnoses / Procedures Referred By Arlet [place] Referred To Contact Physical Therapy Diagnoses Arthritis of left hip Abdelrahman Betancur MD [address] [facility] [address] [place] [address] Phone: tel: fax: Referral ID Status Reason Start Date Expiration Date Visits Requested Visits Authorized [id number] Authorized Specialty Services Required 02/12/2025 08/14/2026 1 1 Reason for Visit * Auth/Cert (Routine) Specialty Diagnoses / Procedures Referred By Arlet beach Referred To Contact Diagnoses Arthritis of left hip Arthritis of left hip [M16.12] Procedures RI TOTAL HIP ARTHROPLASTY ARTHROPLASTY, HIP, TOTAL, ANTERIOR APPROACH Abdelrahman Betancur MD [address] [place] [address] Phone: tel: fax: [facility] Operating Room [address] [place] [address] Phone: tel: Referral ID Status Reason Start Date Expiration Date Visits Re quested Visits Authorized [id number] 1 1 Encounter Details Date Type Department Care Team (Latest Contact Info) Description 02/11/2025 7:40 AM EDT - 02/12/2025 2:57 PM EDT Hospital Encounter [facility] [address] [place] [address] Abdelrahman Betancur MD [address] [place] [address] Arthritis of left hip Discharge Disposition: Home or Self Care Social [...] Sign Reading Time Taken Comments Blood Pressure 138/73 02/12/2025 11:16 AM EDT Pulse 83 02/12/2025 11:16 AM EDT Temperature 36.3 C (97.4 F) 02/12/2025 11:16 AM EDT Respiratory Rate 16 02/12/2025 11:16 AM EDT Oxygen Saturation 99% 02/12/2025 11:16 AM EDT Inhaled Oxygen Concentration - - Weight 79.8 kg (176 lb) 02/11/2025 9:03 AM EDT Height 162.6 cm (5' 4 ) 02/11/2025 9:19 AM EDT Body Mass Index 30.21 02/11/2025 9:03 AM EDT documented in this encounter Functional Status * Calculated C-SSRS Risk Score (Lifetime/Recent) Answer Date of Assessment Author No Risk Indicated 02/12/2025 7:25 AM EDT Noni Kirk * Question Answer Date of Assessment Author 1. Wish to be (Past 1 Month) No 025 7:25 AM EDT Noni Kirk 2. Non-Specific Active Suici rahel Thoughts (Past 1 Month) No 02/12/2025 7:25 AM EDT Bert Kirk 6. Suicidal Behavior (Lifetime) No 7:25 AM EDT Noni Kirk documented as of this encounter Discharge Instructions * Discharge Instructions* Semaj Ordonez APRN - 02/12/2025 9:31 AM EDT 1. You will be on Aspirin 81mg twice daily for 4 weeks for deep vein thrombosis prevention. It is important that you take each pill on time every day and to take it for the full 4 weeks. 2. Please see your discharge medication list for the post-operative medications you have been given. Call the clinic with any questions or concerns. 3. You have been given Docusate Sodium to take daily to prevent constipation while taking narcotic pain medications. Take this as long as you are taking narcotics. You can also begin Miralax daily and continue until you have weaned off your narcotic pain medications. If you have had no bowel movement on post-op day #3 you need to take Milk of Magnesia as directed over the counter. Then if no bowel movement by post-op day #5 you need to use a Dulcolax Suppository over the counter as directed. If still no bowel movement at that time your need to call the clinic. Hypertension - Check blood pressure daily - Once her systolic blood pressure (top number) is consistently greater than 120, you can resume your amlodipine - Continue to check your blood pressure daily at once her systolic blood pressure (top number) greater than 120 you may resume your lisinopril-hydrochlorothiazide documented in this encounter Medications at Time of Discharge acetaminophen (Tylenol Extra Strength) 500 MG tablet Take 2 tablets by mouth every 8 hours. 100 tablet 02/12/2025 amLODIPine (Norvasc) 5 MG tablet Take 1 tablet by mouth daily. aspirin 81 MG EC tablet Take 1 tablet by mouth daily. aspirin 81 MG EC tablet Take 1 tablet by mouth 2 times a day for 28 days. For 4 weeks post-op for blood clot prevention 56 tablet 02/12/2025 5 docusate sodium (Colace) 250 MG capsule Take 1 capsule by mouth 2 times a day. 60 capsule 02/12/2025 5 gabapentin (Neurontin) 100 MG capsule Take 1 capsule by mouth 3 times a day. If this medication makes you drowsy you may take it only at bedtime 30 capsule 02/11/2025 lisinopril-hydro CHLOROthiazide 20-12.5 MG tablet Take 2 tablets by mouth daily. meloxicam (Mobic) 15 MG tablet Take 1 tablet by mouth daily. naloxone (Narcan) 4 mg/0.1 mL nasal spray 1. Give 1 spray in nostril for no/slow breathing or cannot wake after opioid use 2. Call 911 3. Repeat in other nostril if symptoms continue 1 each 02/11/2025 omeprazole (PriLOSEC) [address] capsule Take 1 capsule by mouth daily for 28 days. Do not crush or chew. 28 capsule 02/12/2025 5 Osimertinib Mesylate 80 MG tabletIndication s: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) Take 1 tablet by mouth daily. 30 tablet 2 01/28/2025 oxyCODONE (Roxicodone) 5 MG immediate release tablet Take 1 tablet by mouth every 6 hours as needed for severe pain. 30 tablet 02/11/2025 potassium chloride CR (Klor-Con) 10 MEQ ER tablet Take 1 tablet by mouth daily. Do not crush, chew, or split. traMADol (Ultram) 50 MG tablet Take 1 tablet by mouth every 4 hours as needed for severe pain. 60 tablet 02/11/2025 cefadroxil (Duricef) 500 MG capsuleIndicatio ns:Arthritis of left hip Take 1 capsule by mouth 2 times a day for 7 days. To prevent post-op infection 14 capsule 02/12/2025 5 tranexamic acid (Lysteda) 650 MG tablet tablet Take 1 tablet by mouth 3 times a day for 3 days. 9 tablet 02/12/2025 5 documented as of this encounter Miscellaneous Notes * Discharge Summary - Scott Luque MD - 02/12/2025 2:57 PM EDT Images from the original note were not included. Hospitalization Admit Date/Time: 02/11/2025 7:40 AM Admitting Attending: Abdelrahman Betancur Discharge Date: 02/12/25 Discharge Attending Physician: Abdelrahman Betancur MD PCP name and Address: Wan Santoro MD [address] [place] [address] [address] / [place] [address] Referring provider name and address: No referring provider defined for this encounter. Chief Concern, Brief History of Present Illness, and Hospital Course Patient [facility] 02[facility]25 for their scheduled surgery. Patient tolerated the procedure without complication, was extubated in the operating room, and transferred to the PACU for recovery from anesthesia. Shortly thereafter, patient was transferred to the acute care floorfor recovery. Patient's hospital course was without complications. Patient was given prophylactic antibiotics, pain was controlled on oral pain medications, and patient tolerated a regular diet. The patient was kept on DVT prophylaxis with SCD's and aspirin. The patient was cleared to be dischargedby PT/OT prior to discharge. The patient was discharged [facility]WA. We will see the patient for follow up in clinic on 02/26/25. Surgeries and Procedures ARTHROPLASTY, HIP, TOTAL, ANTERIOR APPROACH (Left) Medication List PAUSE taking these medications * aspirin 81 MG EC tablet Wait to take this until: March 11, 2025 Take 1 tablet by mouth daily. You also have another medication with the same name that you may need to continue taking. * This list has 1 medication(s) that are the same as other medications prescribed for you. Read thedirections carefully, and ask your doctor or other care provider to review them with you. .. acetaminophen 500 MG tablet Commonly known as: Tylenol Extra Strength Take 2 tablets by mouth every 8 hours. amLODIPine 5 MG tablet Commonly known as: Norvasc Take 1 tablet by mouth daily. * aspirin 81 MG EC tablet Take 1 tablet by mouth 2 times a day for 28 days. For 4 weeks post-op for blood clot prevention cefadroxil 500 MG capsule Commonly known as: Duricef Take 1 capsule by mouth 2 times a day for 7 days. To prevent post-op infection docusate sodium 250 MG capsule Commonly known as: Colace Take 1 capsule by mouth 2 times a day. gabapentin 100 MG capsule Commonly known as: Neurontin Take 1 capsule by mouth 3 times a day. If this medication makes you drowsy you may take it only at bedtime lisinopril-hydroCHLOROthiazide 20-12.5 MG tablet Take 2 tablets by mouth daily. meloxicam 15 MG tablet Commonly known as: Mobic Take 1 tablet by mouth daily. naloxone 4 mg/0.1 mL nasal spray Commonly known as: Narcan 1. Give 1 spray in nostril for no/slow breathing or cannot wake after opioid use 2. Call 911 3. Repeat in other nostril if symptoms continue omeprazole [address] capsule Commonly known as: PriLOSEC Take 1 capsule by mouth daily for 28 days. Do not crush or chew. Osimertinib Mesylate 80 MG tablet Take 1 tablet by mouth daily. oxyCODONE 5 MG immediate release tablet Commonly known as: Roxicodone Take 1 tablet by mouth every 6 hours as needed for severe pain. potassium chloride CR 10 MEQ ER tablet Commonly known as: Klor-Con Take 1 tablet by mouth daily. Do not crush, chew, or split. traMADol 50 MG tablet Commonly known as: Ultram Take 1 tablet by mouth every 4 hours as needed for severe pain. tranexamic acid 650 MG tablet tablet Commonly known as: Lysteda Take 1 tablet by mouth 3 times a day for 3 days. * This list has 1 medication(s) that are the same as other medications prescribed for you. Read thedirections carefully, and ask your doctor or other care provider to review them with you. Where to Get Your Medications These medications were sent to [facility] - [address] [address] acetaminophen 500 MG tablet aspirin 81 MG EC tablet cefadroxil 500 MG capsule docusate sodium 250 MG capsule gabapentin 100 MG capsule naloxone 4 mg/0.1 mL nasal spray omeprazole [address] capsule oxyCODONE 5 MG immediate release tablet traMADol 50 MG tablet tranexamic acid 650 MG tablet tablet Discharge Diagnosis Medical Problems Active and Resolved Hospital Problems Hospital * (Principal) Arthritis of left hip Post Discharge Instructions See post op instructions Outpatient Follow-Up Future Appointments Date Time Provider Department Center 02/26/2025 11:20 AM Renetta Stoner PA [facility] 03/06/2025 10:00 AM ENIO NADJA ECHO 2 E[facility]GSG[facility] 03/06/2025 11:30 AM Dian Yancey PA [facility] 03/26/2025 11:10 AM Abdelrahman Betancur MD [facility] 04/02/2025 9:[address] [facility] 04/02/2025 10:30 AM [facility] MR 2 [facility] 04/02/2025 1:15 PM HNRCecil GOSS [facility] Ani 04/02/2025 1:40 PM Rudolph Dillard MD [facility] Law 04/23/2025 11:00 AM Renetta Stoner PA [facility] 05/21/2025 11:10 AM Abdelrahman Betancur MD [facility] 01/08/2026 2:00 PM ENIO NADJA ECHO ECHOGSGSH [facility] 01/08/2026 3:00 PM Dian Yancey PA [facility] Test Results Pending At Discharge Pending Labs Order Current Status Surgical Pathology Exam In process Pertinent Physical Exam At Time of Discharge Physical Exam General: NAD, responsive to all questions, oriented Resp: nonlabored Musculoskeletal Exam: Left LE--Focus on Hip: Anterior Tegaderm dressing, c/d/i Minimal TTP over hip Contractility of EHL/TA, FHL/GSC SILT to DP, SP, Sural, Saphenous, and Tibial nn. DP and PT pulses 2+ palpable, Cap refill <2sec Discharge Disposition/Condition Disposition: Home Condition: Stable (s/sx potential problems absent or manageable) I spent >30 minutes of patient care and instruction time in preparation for this discharge. Eric Luque MD PGY-1, Orthopaedic Surgery [facility] Cosigned by Abdelrahman Betancur MD at 02/12/2025 4:03 PM EDT Associated attestation - Abdelrahman Betancur MD - 02/12/2025 4:03 PM EDT I saw and evaluated the patient with the resident/fellow. I discussed the case with the resident/fellow and agree with the findings and plan as documented. * Care Plan - Noni Kirk - 02/12/2025 1:16 PM EDT Pt to be discharged per order. Pt to discharge home via private car with family. Belongings securedwith patient at bedside. Discharge nurse to complete discharge paperwork and education. Discharge prescriptions to be delivered to bedside. Will continue to monitor discharge progress and address anyfurther needs or concerns. Problem: Adult Inpatient Plan of Care Goal: Plan of Care Review Outcome: Adequate for Care Transition Goal: Patient-Specific Goal (Individualized) Outcome: Adequate for Care Transition Goal: Absence of Hospital-Acquired Illness or Injury Outcome: Adequate for Care Transition Goal: Optimal Comfort and Wellbeing Outcome: Adequate for Care Transition Goal: Readiness for Transition of Care Outcome: Adequate for Care Transition Problem: Fall Injury Risk Goal: Absence of Fall and Fall-Related Injury Outcome: Adequate for Care Transition Problem: Knee Arthroplasty Goal: Absence of Bleeding Outcome: Adequate for Care Transition Goal: Effective Bowel Elimination Outcome: Adequate for Care Transition Goal: Optimal Functional Ability Outcome: Adequate for Care Transition Goal: Absence of Infection Signs and Symptoms Outcome: Adequate for Care Transition Goal: Effective Urinary Elimination Outcome: Adequate for Care Transition Problem: Pain Acute Goal: Optimal Pain Control and Function Outcome: Adequate for Care Transition * Progress Notes - Eugenie Manriquez - 02/12/2025 12:39 PM EDT Physical Therapy Treatment Patient Name: Priya THOMASN: [id number] Today's Date: 02/12/2025 PT Discharge Recommendations: Home with assistance, Outpatient PT Equipment Recommended: Rolling walker Subjective Patient reports she was able to get dressed by herself this morning. Hopeful to return home today. Participants in Care Family/Caregiver Present: Yes Family/Caregiver: Other (Specify) (sister) Ecological Technical Officer: Not Applicable Presentation Oxygen Therapy: None (Room air) Lines and Tubes: Intravenous access Pre-Session: Sitting in chair, Lines intact Pre-Session Comments: RN consent to assessment; OT present Post-Session: Sitting in chair, Lines intact, RN notified, Call light in reach, Chair alarm Post-Session Comments: All needs addressed Precautions Medical Precautions: Fall precautions Objective Pain No c/o pain Delirium Screening RASS: Alert and calm Confusion Assessment Method-ICU (CAM-ICU/PCAM-ICU) Feature 3: Altered Level of Consciousness: Negative Therapeutic Activity (27 minutes) Patient reports nausea - reported to RN and she is present to address concerns. Intermittent rest breaks needed throughout due to lingering nausea. Requires assist to fit personal RW to height. Cues for hand placement and foot positioning in prep for sit to stand transfers. Therapist addressed questions and concerns from patient and caregiver. See sections below for further intervention detail: Transfers Transfer Exam: Sit to stand Level of [place]: Stand-by assist Physical/Nonphysical Assist: Verbal Cues, Nonverbal cues (demo/gestures) Assistive Device: Walker, rolling Transfer Exam: Stand to Sit Level of [place]: Stand-by assist Physical/Nonphysical Assist: Verbal Cues, Nonverbal cues (demo/gestures) Assistive Device: Walker, rolling Gait Training (16 minutes) Device: Rolling walker Assistance: Standby assist Distance: 75' Gait Analysis: Short step length, narrow CARMELO, forward flexed posture Gait Training Interventions: Verbal cues to facilitate upright posture and increase CARMELO. Shows goodprogress towards reciprocal gait pattern. Stairs Rails : Bilateral Assistance: Contact guard Stair Training Interventions: Patient negotiates 2 steps using [facility] hand rails and cues for sequencing. Able to complete with increased time and CGA. Therapeutic Exercise (12 minutes) Patient provided with HEP addressing post-op protocol Phases I-III. Instructed in Phase I exercisesfor 1x 10 with cues for proper technique. [employer] Access Code: [email or web address] Assessment Patient tolerated today's activities well with mild nausea throughout session. Demonstrates progress gait tolerance and ability to negotiate stairs for accessibility to household environment. Patientis planned for discharge this afternoon. PT will continue to follow as appropriate. PT Recommendations Discharge Destination: Home with assistance, Outpatient PT Discharge Equipment: Rolling walker Plan Continue POC PT Goals PT GOAL DETAILS Goal Established Date Time Frame Goal Status PT Goal 1: Patient will transfer from sitting <> standing using RW and SBA. 02/11/25 2 weeks PT Goal 2: Patient will safely ambulate 150' using RW and SBA. 02/11/25 2 weeks PT Goal 3: Patient will negotiate 4 steps using hand rails and SBA. 02/11/25 2 weeks PT Goal 4: Patient will complete HEP with supervision. 02/11/25 2 weeks Written by Eugenie Manriquez on 02/12/25 at 1:54 PM. * Denise Duarte - Leonor Bella RN - 02/12/2025 11:44 AM EDT Images from the original note were not included. [id number] After Hip Replacement: Using Your Walker After hip replacement, you?ll likely use a walker to get around while you recover. There are a few types of walkers: ? The standard nonrolling walker ? The 2-wheeled (front) rolling walker ? The 4-wheeled rolling walker Your physical therapist or occupational therapist will teach you how to use a walker safely and help you choose the best one for you. Later, you may change from a walker to crutches or a cane. Using a walker ? Move the walker a few inches in front of you. ? Lean on the walker so it supports you. Step into the center with your operated leg. Then step forward with your good leg. Repeat. ? As you get more comfortable, you?ll be able to move the walker as you step. Walking up a curb ? Move your feet and walker as close to the curb as possible. ? Put your weight on both legs, and then lift the walker onto the curb. ? Step on the curb with your good leg. Using the walker to support your weight, bring up your operated leg. Walking down a curb ? Move your feet and walker as close to the curb as possible. ? Lower the walker onto the ground, keeping its back legs against the curb. ? Using the walker to support your weight, lower your operated leg. Then step down with your good leg. ? Never climb stairs or use an escalator with your walker. Last Reviewed Date: 2024 00:00:00 ?? [id number] [employer]. All rights reserved. This information is not intended as a substitute for professional medical care. Always follow your healthcare professional's instructions. * Denise OnFHIR - Leonor Bella RN - 02/12/2025 11:44 AM EDT Images from the original note were not included. [id number] Using an Incentive Spirometer An incentive spirometer is a handheld device that helps you do deep breathing exercises after surgery. It also helps lower the risk of breathing problems if you have a lung disease or condition. These exercises expand your lungs, aid in circulation, and may help prevent pneumonia. Deep breathing exercises also help you breathe better and improve lung function by: ? Keeping your lungs clear. ? Making your breathing muscles stronger. ? Helping prevent respiratory complications or problems. The incentive spirometer gives you a way to take an active part in your recovery. A nurse or respiratory therapist will teach you breathing exercises. To do these exercises, you will breathe in through your mouth and not your nose. The incentive spirometer only works correctly if you breathe in through your mouth. Deep breathing expands the lungs, aids circulation, and helps prevent pneumonia. Your health care provider or their staff will tell you how to use the device, your targeted volume(s), and provide other helpful tips to prevent complications (such as pain, dizziness, feeling lightheaded) when blowing in the incentive spirometer. Steps to clear lungs Step 1. Exhale normally. Then, inhale normally. ? Relax and breathe out. Step 2. Place your lips tightly around the mouthpiece. ? Make sure the device is upright and not tilted. ? Sit up and breathe out (exhale) fully. ? Tightly seal your lips around the mouthpiece. Step 3. Inhale as much air as you can through the mouthpiece. Don't breathe through your nose. ? Breathe in (inhale) slowly and deeply. ? Hold your breath long enough to keep the balls, piston, or disk raised for at least 3 to 5 seconds, or as instructed by your health care provider. ? Exhale slowly to allow the balls, piston, or disk to fall before repeating. Note: Some spirometers have an indicator to let you know that you are breathing in too fast. If theindicator goes off, breathe in more slowly. Step 4. Repeat the exercise regularly. ? Do sets of 10 exercises every hour while you're awake, or as instructed by your health care provider. Don't do more than 30 breaths in each set. ? If you were taught deep breathing and coughing exercises, do them regularly as instructed by yourprovider, nurse, or respiratory therapist. Follow-up care Make a follow-up appointment as directed by your health care provider. Also, follow up with your provider as advised if your symptoms don't improve or continue to get worse. When to contact your doctor Contact your health care provider right away if you have: ? A fever 100.4?? (38??C) or higher, or as advised by your provider. ? Brownish, bloody, or smelly sputum (phlegm that you cough up). Call 911 Call 911 if any of these occur: ? Shortness of breath that doesn't get better after taking your medicine ? Cool, moist, pale, or blue skin ? Trouble breathing or swallowing, wheezing ? Fainting or loss of consciousness ? Feeling of dizziness or weakness, or a sudden drop in blood pressure ? Feeling very ill ? Lightheadedness ? Chest pain or rapid heart rate Last Reviewed Date: 2024 00:00:00 ?? [id number] [employer]. All rights reserved. This information is not intended as a substitute for professional medical care. Always follow your healthcare professional's instructions. * Denise Duarte - Leonor Bella RN - 02/12/2025 11:44 AM EDT Images from the original note were not included. 38704 Preventing Deep Vein Thrombosis After Surgery In the days and weeks after surgery, you have a higher chance of developing a deep vein thrombosis (DVT). This is a condition in which a blood clot (thrombus) forms in a deep vein. They are most common in the leg. But a DVT may form in an arm or another deep vein in the body. A piece of the clot, called an embolus, can separate from the thrombus and travel to the lungs. A blood clot in the lungs is called a pulmonary embolus (PE). This can cut off the flow of blood to part or all of the lungs. It's a medical emergency and may cause . Doctors use the term venous thromboembolism (VTE) to describe both DVT and PE. They use the term VTE because the two conditions are very closely related and their prevention and treatment are similar. Prevention in the hospital or other facility Your doctor will usually prescribe one or more of the following to prevent blood clots: ? Blood-thinner (anticoagulant). This medicine prevents blood clots. You take it by mouth, by injection, or through an I.V. (intravenous). Commonly used anticoagulants include warfarin and heparin. Newer anticoagulants may also be used, including rivaroxaban, apixaban, dabigatran, and enoxaparin. Sometimes the doctor may not give you an anticoagulant medicine. It's important that they discuss therisks and benefits with you. ? Compression stockings. These elastic stockings fit tightly around your legs. They help keep bloodflowing toward your heart by the pressure they apply. They prevent blood from pooling and forming blood clots. When you first put them on, the stockings may be uncomfortable. But after a while, you should get used to them. ? Exercises. Simple exercises while you are resting in bed or sitting in a chair can help prevent blood clots. Move your feet in a [place] or up and down. Do this 10 times an hour to improve circulation. ? Getting out of bed and walking (ambulation). After surgery, a nurse will help you out of bed as soon as you are able. Moving around improves circulation and helps prevent blood clots. ? Sequential compression device (SCD) or intermittent pneumatic compression (IPC). Plastic sleeves are wrapped around your legs and connected to a pump that inflates and deflates the sleeves. This applies gentle pressure to promote blood flow in the legs and prevent blood clots. These should be worn when you lie in bed or sit in a chair. Prevention at home Ankle exercises can help keep blood flowing in the veins. Deep vein thrombosis can happen even after you go home. Follow all instructions from your doctor. The following are some general guidelines about DVT prevention: ? Blood-thinner medicine. If a blood thinner was prescribed, make sure you follow all directions about taking it. Be sure you know what foods and medicines may interact. And ask your doctor what to do if you forget to take a dose. ? Compression stockings. Your doctor will tell you how often to wear and remove the stockings. Follow all instructions closely. Each time you remove your stockings, check your legs and feet for red areas or sores. If you see any changes, call your doctor right away. ? Returning to activity. Follow all instructions about returning to activities. Be as active as youcan. This improves blood flow and helps prevent a clot from forming. When in bed or in a chair, continue with the ankle exercises you did in the hospital. ? Sequential compression device (SCD) or intermittent pneumatic compression (IPC). In some cases, this device may be recommended at home. If you are using this device at home, make sure you closely follow all instructions from your doctor. You will be instructed on how often and for how long to usethe device. Remove the sleeves if you are up and walking. When to call your doctor You may have symptoms of a blood clot. Or you may have signs of bleeding from medicines to prevent clots. Contact your doctor right away if you have: ? Pain, swelling, or redness in the leg, arm, or other area. ? Blood in your urine or stool. ? Very dark or tar-like stool. ? Vomiting with blood. ? Bleeding from the nose. ? Bleeding from the gums. ? A cut that won't stop bleeding. ? Bleeding from the vagina. Call 911 Call 911 if you have: ? Chest pain. ? Shortness of breath. ? A fast heartbeat. ? Excessive sweating. ? Fainting. ? Coughing (may cough up blood). ? Heavy or uncontrolled bleeding. Last Reviewed Date: 2024 00:00:00 ?? [id number] [employer]. All rights reserved. This information is not intended as a substitute for professional medical care. Always follow your healthcare professional's instructions. * Denise De LeonREAL - Leonor Bella RN - 02/12/2025 11:44 AM EDT Images from the original note were not included. 46095 Preventing a Surgical Site Infection A risk of any surgery is an infection at the surgical site. The surgical site is a cut the surgeon makes in the skin to do the surgery. Surgical site infections can range in type. It may be a minor skin infection. Or it may be severe and include tissue under the skin or other organs. In some cases,a severe infection can cause . The information below tells you: ? About surgical site infections. ? What hospitals do to prevent them. ? How they?re treated if they do occur. ? What you can do to prevent an infection. Hand washing reduces the risk of infection. What causes a surgical site infection? Germs are everywhere. They?re on your skin, in the air, and on things you touch. Many germs are good. Some are harmful. Surgical site infections occur when harmful germs enter your body through the incision in your skin. Some infections are caused by germs that are in the air or on objects. But most are caused by germs found on and in your own body. Who is at risk for a surgical site infection? Anyone can have a surgical site infection. Your risk is higher if you: ? Are an older adult. ? Have a weak immune system. ? Have other health conditions such as diabetes. ? Take certain medicines, such as steroids. ? Are a smoker. ? Have certain types of surgery, such as abdominal surgery. ? Have poor nutrition. ? Are very overweight. ? Have a surgery that lasts longer than 2 hours. What are the symptoms of a surgical site infection? An infection often shows up as skin redness, pain, and swelling around the incision that gets worse. Later, a cloudy or greenish-yellow fluid may come from the incision. The fluid may smell bad. The incision may pull apart or open up. You are likely to have a fever and may feel very ill. Symptoms can appear at any time. They may happen from hours to weeks after surgery. Implants such as an artificial knee or hip can become infected at any time after the surgery. How is a surgical site infection treated? ? A surgical site infection is treated with antibiotics. The type of medicine you get will depend on what may be causing the infection. Most serious wound infections need wound care. In some cases, surgery may be needed on the infected wound. ? An infected skin wound may be reopened and cleaned. A deep wound may need to be packed with gauze. The gauze is changed often until the wound starts to heal from the inside out. Your health care provider will decide the best way to treat your infection. ? If an infection occurs where an implant is placed, the implant may be removed. ? If you have an infection deeper in your body, you may need surgery to treat it. What hospitals do to prevent surgical site infections Many hospitals take these steps to help prevent surgical site infections: ? Handwashing. Before the surgery, your surgeon and all surgery staff scrub their hands and arms with an antiseptic soap. ? Clean skin. The site where your incision is made is carefully cleaned with an antiseptic solution. ? Sterile clothing and drapes. The surgical team wears medical uniforms. These are known as scrub suits. They wear long-sleeved surgical gowns, masks, caps, shoe covers, and sterile gloves. Your bodyis fully covered with a large sterile sheet (sterile drape). There is an opening in the sheet wherethe incision is made. ? Clean air. Operating rooms have special air filters. They use positive pressure airflow to prevent unfiltered air from entering the room. ? Careful use of antibiotics. Antibiotics are given no more than 60 minutes before the incision is made. They are generally stopped within 24 hours after surgery. This depends on the type of surgery.This helps kill germs but prevents problems that can occur when antibiotics are taken longer. ? Controlled blood sugar levels. Your blood sugar level may rise. This can be because of the stressof the surgery. Your blood sugar level is watched closely to make sure it stays within a normal range. High blood sugar delays wound healing. This increases the risk of infection. ? Controlled body temperature. A jawzp-elyv-bxfdzy temperature during or after surgery prevents oxygen from reaching the wound. This makes it harder for your body to fight infection. Hospitals may warm I.V. fluids, and provide warm-air blankets. Your temperature is watched throughout the surgery. ? Safe hair removal. Any hair that must be removed is clipped right before the incision, not shavedwith a razor. This prevents tiny nicks and cuts where germs can enter. ? Wound care. After surgery, a closed wound is covered with a sterile dressing for 1 to 2 days. Open wounds are packed with sterile gauze and covered with a sterile dressing. What you can do to prevent a surgical site infection ? Ask questions. Learn what your hospital is doing to prevent infection. ? If instructed, shower or bathe with plain soap the night before and the day of your surgery. Follow all instructions you're given. You may be asked to use a special cleanser that you don?t rinse off. ? If you smoke, stop as long as possible before and after the surgery. Ask your provider about waysto quit. ? Take antibiotics only when your provider tells you to. Using antibiotics when they?re not needed can create germs that are harder to kill. Finish the entire prescription of your antibiotics even ifyou feel better. ? Ask health care workers to clean their hands with plain soap and water or with an alcohol-based hand equalizer operator before and after caring for you. Don?t be afraid to remind them. ? After surgery, eat healthy foods. Care for your incision as directed by your health care team. When to contact your doctor Contact your provider or seek medical care right away if: ? The pain at the surgical site gets worse. ? A red streak, worse redness, or puffiness appears near the incision. ? Yellowish, cloudy, or bad-smelling fluid leaks from the incision. ? Your stitches dissolve before the wound heals. ? You have a fever of 100.4?? F ( 38??C ) or higher, or as advised by your provider. ? You have a tired feeling that doesn?t go away. Last Reviewed Date: 2024 00:00:00 ?? [id number] [employer]. All rights reserved. This information is not intended as a substitute for professional medical care. Always follow your healthcare professional's instructions. * Denise De LeonREAL - Leonor Bella RN - 02/12/2025 11:44 AM EDT Images from the original note were not included. 223 After Total Hip Replacement After your hip replacement, you will need to follow these instructions to avoid complications. Follow these instructions from the time you go home until your doctor says you can stop. Incision care ? If your incision has sutures or krista, do not shower until after you return to the clinic. ? If your incision is closed with liquid skin adhesive, you may shower 24 hours after all drainage stops. ? If your incision is covered with a waterproof dressing, you may shower when you feel comfortable.Remove this dressing after 10 days. ? Sit on a shower chair or tub bench when you shower to keep from falling. Carefully wash around your incision with soap and water. Rinse the incision well. Then gently pat it dry. ? Do not rub the incision or apply creams or lotions. ? If your incision is not draining, you do not need a dressing over it. You may cover your incisionwith a light, dry bandage if you want. ? Check your incision daily for redness, swelling, tenderness or drainage. Hip precautions ? Most patients will not need to follow hip precautions, but you may be asked to avoid certain positions and movements for 8 weeks after surgery. We will teach you how to follow hip precautions, if needed. ? If needed, the hip precautions after posterior hip replacement are: o Do not bend your hip past 90 degrees. o Do not cross your legs past midline. o Do not turn your surgery foot or leg inward. ? If needed, the hip precautions after anterior hop replacement are: o Do not force your leg to extend backwards. You should be able to walk as normal with a cane. o Do not turn your surgery foot or let outwards. Activity and exercise ? Follow your doctor?s orders for how much weight to put on the operated leg. ? Follow hip precautions for eight weeks after surgery, if needed. ? Walk often. Do the exercise physical therapy taught you three times a day. ? Slowly increase your activity each day. ? Walk up and down stairs with support. Use the railing if possible. Try one step at a time - good hip up, bad hip down. ? Use a cane, crutches, a walker or handrails until your balance, flexibility and strength improve.And remember to ask for help from others when you need it. ? Do not engage in any jarring sports or activities until your doctor says it is OK. Examples are jogging, tennis and basketball. Sitting and lying down ? Raise your legs when sitting. ? Sit in chairs with arms. The arms make it easier for you to stand up or sit down. ? Do not sit for more than 30 to 45 minutes at a time. ? Nap if you are tired, but don?t stay in bed all day. ? Ask your surgeon if it is OK to sleep on the side that has the new hip. Use pillows between your legs if sleeping on your side. Be sure to change the position of your leg during the night. Bathroom safety ? Use nonslip bath mats, grab bars and a shower chair or tub bench in your bathroom. Riding and driving ? Sit on a firm cushion when you ride in a car. Avoid sitting too low. ? Don?t drive while you are taking narcotic pain medication. ? Don?t drive until your doctor says it is OK. Most people can start driving about 2 to 4 weeks after surgery. Managing pain ? You should expect to have some pain as you heal. This pain may last weeks or months. ? Take pain medicine as directed. Do not skip or add doses. ? Take them at least 20 minutes before doing activities. Take them 30 to 60 minutes before exerciseor physical therapy. ? Do not take other pain medicines unless your doctor approves. This includes apab-bki-sangfyy medicines like aspirin, ibuprofen and Tylenol. ? As you heal, you will need less pain medicine. Try taking 1 pill instead of 2. Or take them 2 times a day instead of 3 times a day. ? Raise your leg. Rest your leg on pillows when you are in bed or in a chair. ? Get up and move. This may help relieve discomfort at night. ? You can also listen to music, relax, distract your mind or reposition your leg. Preventing infection ? Avoid infection by washing your hands often. ? Call your surgeon right away if you think you have an infection in your operated hip. Signs include a fever, redness, increased pain, or an incision that leaks white, green or yellow fluid. ? Avoid soaking your incision in water (no hot tubs, bathtubs, swimming pools) until your doctor says it?s ok. ? Wait 3 weeks after your surgery to shave your legs. ? Wait 3 weeks after your surgery to get a flu or pneumonia vaccine. ? Wait 2 months after your surgery for any routine dental appointments. When scheduling an appointment, be sure to tell your dentist that you?ve had a hip replacement. Your dentist may prescribe antibiotics for dental procedures. ? Call your family doctor right away if you think you might have an infection elsewhere. Preventing blood clots ? Take blood-thinning medicine as directed to prevent blood clots. ? The nursing staff will teach you how to give the enoxaparin injection, if needed.. ? Do not miss doses of blood-thinning medicine. ? Use caution when taking long car trips or traveling by airplane for the first 6 weeks after surgery. If you must take a long car trip, stop every hour and walk for 10-15 minutes. Your doctor may recommend a blood thinner if you are flying within 6 weeks of surgery. Diet ? It is normal to have a decreased appetite after surgery. Drink a nutritional supplement such as Boost or [place] Instant Breakfast until your appetite returns to normal. ? Maintain a healthy weight. Added body weight puts stress on the hip. Get help to lose any extra pounds. Preventing constipation ? Narcotic pain medicines can cause constipation. ? Take stool softener as prescribed. ? Drink plenty of fluids, especially water. ? Increase fiber in your diet. Fruits, vegetables, beans, nuts and whole grains have fiber in them. ? Call your doctor if your bowels do not move in the next few days after surgery. Sleep ? Some patients have a hard time sleeping after surgery. If you have problems sleeping, take zecr-pri-lcfvbpn diphenhydramine (Benadryl) or melatonin. ? If you still have problems sleeping, call the clinic. You may need a prescription for a sleep aid. Follow-up care ? Your orthopaedic surgeon will schedule follow-up exams to make sure that your hip is healing correctly. Use this time to ask any questions you have about your recovery or activities. ? If you need a prescription refill before your next appointment, call [phone]. Call 3 business days before you run out of medicine. ? To check joint stability over time, you may have X-rays every five years. When should I call the doctor? Call [phone] right away if you have any of the following ? Chest pain ? Shortness of breath or trouble breathing Call Your doctor if you have any of the following ? An increase in hip pain ? Pain or swelling in a calf or leg ? Unusual redness, heat, or drainage at the incision site ? Fever of 101.5??F or higher or shaking chills. ? Increased swelling in your leg. ? Loss of control over leg motion * Progress Notes - Semaj Ordonez APRN - 02/12/2025 9:34 AM EDT Interval Hx 02/12/2025 Plan discussed with patient and orthopedic team. Her SBP is ranging 96-105 with heart rates in the 70s and 80s. She denies any nausea, vomiting, shortness of breath, or chest pain and reports urinating without difficulty and passing flatus. Past medical history, home medications, allergies, social and family history are reviewed. Review of Systems Constitutional: No fever or chills HENT: Negative. Eyes: Negative. Respiratory: Negative. Cardiovascular: No dizziness, no chest pain or pressure Gastrointestinal: Negative. Endocrine: Negative. Genitourinary: urinating at baseline Musculoskeletal: pain is controlled Skin: Negative. Neurological: Negative. Hematological: Negative. Psychiatric/Behavioral: Negative. Last Vitals Visit Vitals BP 105/51 (BP Location: Left arm, Patient Position: Lying) Pulse 82 Temp 36.3 ??C (97.3 ??F) (Oral) Resp 16 Ht 1.626 m (5' 4 ) Wt 79.8 kg (176 lb) SpO2 98% BMI 30.21 kg/m?? OB Status Hysterectomy Smoking Status Never BSA 1.9 m?? PHYSICAL EXAM Constitutional: Appearance: No acute distress HENT: Head: Normocephalic and atraumatic. Nose: Nose normal. Mouth: Mucous membranes are moist. Eyes: Conjunctiva/sclera: Conjunctivae normal. Cardiovascular: Rate and Rhythm: Normal rate and regular rhythm. Pulses: Normal pulses. Heart sounds: murmur 2/6 present . No edema is noted Pulmonary: Effort: Pulmonary effort is normal. Breath sounds: Normal breath sounds. Abdominal: General: bowl sounds are present in all quads Palpations: Abdomen is soft. Musculoskeletal: Slight left hip swelling noted Skin: General: Skin is warm and dry. Capillary Refill: Capillary refill takes less than 2 seconds. Dressing is dry and intact Neurological: General: No focal deficit present. Mental Status: alert and oriented to person, place, and time. Mental status is at baseline. Psychiatric: Mood and Affect: Mood normal. Behavior: Behavior normal. Current medications Current Medications[1] Recent labs and diagnostic tests Results from last 7 days Lab Units 02/12/25 0348 WBC 10*3/uL 13.21* HEMOGLOBIN g/dL 8.5* HEMATOCRIT % 25.4* PLATELETS 10*3/uL 133* ASSESSMENT AND PLAN Essential hypertension History of severe aortic stenosis s/p TAVR - At baseline she is on amlodipine 5 mg daily and lisinopril-hydrochlorothiazide 20-12.5 mg daily - Systolic pressures are ranging 96-107 Plan: - Will stop her amlodipine this morning - Will give her the following instructions when resuming her home medications: - Check blood pressure daily - Once her systolic blood pressure (top number) is consistently greater than 120, you can resume your amlodipine - Continue to check your blood pressure daily at once her systolic blood pressure (top number) greater than 120 you may resume your lisinopril-hydrochlorothiazide Acute blood-loss anemia with chronic Normocytic anemia, POA - Hemoglobin today at 8.5, compared to baseline of 10.4-11.8 - No issues at this time Plan: - She can follow-up with her primary as needed Status post left total hip replacement - Her DVT prophylaxis will be aspirin 81 mg twice a day - Is tolerating her physical therapy Plan: - per primary team Reduced mobility secondary to LT CLAY Plan: -will start off with a walker with restrictions, transition in the outpatient setting by Physical therapy as appropriate. 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 Dillard) Plan: - Per patient, plans to hold Tagrisso until ortho follow up in ~ 2 weeks Corey Ordonez [facility] Medicine Secure Chat [1] Current Facility-Administered Medications Medication Dose Route Frequency Provider Last Rate Last Admin acetaminophen (Tylenol) tablet 1,000 mg 1,000 mg Oral q8h Scott Yusuf MD 1,000 mg at 02/12/25 0518 aspirin chewable tablet 81 mg 81 mg Oral BID Scott Luque MD 81 mg at 02/12/25 0836 bethanechol (Urecholine) tablet 20 mg 20 mg Oral Once PRN Scott Luque MD bisacodyl (Dulcolax) suppository 10 mg 10 mg Rectal BID PRN Scott Luque MD calcium-vitamin D 500-200 MG-UNIT per tablet 1 tablet 1 tablet Oral BID with meals Scott Luque MD 1 tablet at 02/12/25 0835 ceFAZolin (Ancef) injection 2 g 2 g Intravenous q8h Scott Luque MD 2 g at 02/12/25 0256 diphenhydrAMINE (Benadryl) tablet 12.5 mg 12.5 mg Oral q4h PRN Scott Luque MD HYDROmorphone (Dilaudid) injection 0.5 mg 0.5 mg Intravenous q6h PRN Scott Luque MD ketorolac (Toradol) injection 15 mg 15 mg Intravenous q6h JOSEFA Scott Luque MD 15 mg at 02/12/25 0519 lactated Ringer's infusion 50 mL/hr Intravenous Continuous Scott Luque MD 50 mL/hr at 02/11/25 2341 50 mL/hr at 02/11/25 2341 magnesium hydroxide (Milk of Magnesia) 400 MG/5ML suspension 30 mL 30 mL Oral BID PRN Scott Luque MD ondansetron (Zofran) injection 4 mg 4 mg Intravenous q6h PRN Scott Luque MD oxyCODONE (Roxicodone) immediate release tablet 5 mg 5 mg Oral q4h PRN Scott Luque MD pantoprazole (Protonix) EC tablet 40 mg 40 mg Oral Daily before breakfast Scott Luque MD 40 mg at 02/12/25 0835 polyethylene glycol (Miralax) packet 17 g 17 g Oral Daily with breakfast Scott Luque MD 17 g at 02/12/25 0836 senna-docusate (Krista-Colace) 8.6-50 MG per tablet 2 tablet 2 tablet Oral Nightly Scott Luque MD 2 tablet at 02/11/25 2130 traMADol (Ultram) tablet 100 mg 100 mg Oral q8h JOSEFA Scott Luque MD 100 mg at 02/12/25 0518 traMADol (Ultram) tablet 50 mg 50 mg Oral q12h PRN Scott Luque MD * Progress Notes - Aide Carter RN - 02/12/2025 9:22 AM EDT Case Management Adult Progress Note Priya Lynn 69 y.o. female CSN: [id number] Admission: 02/11/2025 7:40 AM Primary Problem: Arthritis of left hip RW to be delivered to bedside today by [facility]. Aide Carter RN * Progress Notes - Kelvin Everett MD - 02/12/2025 7:16 AM EDT [facility]--Orthopaedic Reconstruction Team--Progress Note: Date: 02/12/25 Subjective: s/p L CLAY (02/11) POD#1 Denies n/v, fever, chills, night sweats, CP, or SOB. NAD Pain Well controlled Tolerating PO well Urinating: Positive Flatus: Positive BM: Negative Objective: Visit Vitals BP 96/57 Pulse 77 Temp 36.4 ??C (97.5 ??F) Resp 16 Ht 1.626 m (5' 4 ) Wt 79.8 kg (176 lb) SpO2 96% BMI 30.21 kg/m?? OB Status Hysterectomy Smoking Status Never BSA 1.9 m?? Physical exam: General: NAD, responsive to all questions, oriented Resp: nonlabored Musculoskeletal Exam: Left LE--Focus on Hip: Anterior Tegaderm dressing, c/d/i Minimal TTP over hip Contractility of EHL/TA, FHL/GSC SILT to DP, SP, Sural, Saphenous, and Tibial nn. DP and PT pulses 2+ palpable, Cap refill <2sec Assessment: Priya Lynn is a 69 y.o. female presents with: S/p L CLAY (02/11) Plan: Mobility Orders Mobility Protocol: General - Mobility Guidelines Extremity Precautions: No Extremity Precautions Other mobility precautions: No other precautions required PT/OT rec: HWA Abx: DC on Duricef DVT ppx: ASA Pain control Bowel regimen Follow up: Renetta BILL, Orthopaedic Surgery Recon 02/26 Disposition: Likely DC home today after PT Kelvin Everett MD Orthopedic Surgery PGY-2 [facility] Personal Pager: [phone] Orthopaedic Trauma Service Pager: [phone] Orthopaedic Recon/Spine/Foot and Ankle Service Pager: [phone] Cosigned by Abdelrahman Betancur MD at 02/12/2025 8:54 AM EDT Associated attestation - Abdelrahman Betancur MD - 02/12/2025 8:54 AM EDT I saw and evaluated the patient with the resident/fellow. I discussed the case with the resident/fellow and agree with the findings and plan as documented. * Care Plan - Zhanna Parker RN - 02/11/2025 4:23 PM EDT Problem: Adult Inpatient Plan of Care Goal: Plan of Care Review Flowsheets (Taken 02/11/2025 1420) Plan of Care Reviewed With: patient Problem: Knee Arthroplasty Goal: Absence of Bleeding Outcome: Ongoing, Progressing Intervention: Monitor and Manage Bleeding Flowsheets (Taken 02/11/2025 1420) Bleeding Management: dressing monitored Goal: Optimal Functional Ability Outcome: Ongoing, Progressing Goal: Absence of Infection Signs and Symptoms Outcome: Ongoing, Progressing Intervention: Prevent or Manage Infection Flowsheets (Taken 02/11/2025 1619) Isolation Precautions: precautions initiated Goal: Effective Urinary Elimination Intervention: Monitor and Manage Urinary Retention Flowsheets (Taken 02/11/2025 1420) Urinary Elimination Promotion: frequent voiding encouraged positioned for ease of voiding Problem: Pain Acute Goal: Optimal Pain Control and Function Intervention: Prevent or Manage Pain Flowsheets (Taken 02/11/2025 1619) Bowel Elimination Promotion: adequate fluid intake promoted ambulation promoted Medication Review/Management: medications reviewed * Progress Notes - Eugenie Manriquez Oliva - 02/11/2025 4:15 PM EDT Physical Therapy Evaluation Patient Name: Priya Lynn Today's Date: 02/11/2025 PT Discharge Recommendations: Home with assistance, Outpatient PT Equipment Recommended: Rolling walker History Priya Lynn is 69 y.o. female admitted 02/11/2025 for work-up of Arthritis of left hip. Problem List Active Hospital Problems Diagnosis Date Noted Arthritis of left hip 01/04/2025 Procedures 02/11/2025 Procedure(s): ARTHROPLASTY, HIP, TOTAL, ANTERIOR APPROACH Past Medical History Patient has a past medical history of Arthritis, Cancer (CMS/HCC), High blood pressure, and Osteoarthritis. Past Surgical History Patient has a past surgical history that includes Cholecystectomy (N/A); Hysterectomy (N/A); Rigid / flex bronch w/ lavage / Bx / Fb removal (N/A); Lung biopsy; Colonoscopy (08/02/2023); Gamma Knife (2020); and Cardiac valuve replacement (12/27/2024). Precautions Medical Precautions: Fall precautions Subjective Patient is s/p Left CLAY POD0. Reports she is feeling good overall. Agreeable to PT assessment. Reports LLE is still numb once up and walking. Participants in Care Family/Caregiver Present: Yes Family/Caregiver: Other (Specify) (brother, sister, friend) Ecological Technical Officer: Not Applicable Presentation Oxygen Therapy: None (Room air) Lines and Tubes: Intravenous access Pre-Session: Supine, Head of bed elevated, Lines intact Pre-Session Comments: RN consent to assessment Post-Session: Sitting in chair, Lines intact, RN notified, Call light in reach, SCDs applied Post-Session Comments: All needs addressed Home Living/Set-up Lives With: Alone Home Type: House Home Adaptive Equipment: Rolling walker, Cane (pediatric size RW) Home Layout: Two level, Able to live on one level with bedroom/bathroom, Stairs to enter with rails Number of Stairs: 4 Bathroom: Tub/Shower: Walk-in shower, Built-in shower seat, Grab bars Bathroom: Toilet: Tall Home Living Comments: Patient family is present and reports she will have assist as needed post-op.Reports she is typically IND but has had help from her brother for some ADLs/IADLs with worsening pain. Prior Level of Function Receives Help From: No assist required prior to admission Level of Mobility: Ambulatory- household only (will go to [employer], otherwise stays around home) Mobility [place]: Independent gait with device History of Falls: No ADL Performance: Needs assistance Bathing: Independent Upper Body Dressing: Independent Lower Body Dressing: Independent Grooming: Independent Toileting: Independent Eating: Independent Home Management Skills: Needs assist Patient/Family Goals Improved pain and mobility. Objective Pain Reports burning in anterior L hip; denies all other pain. Delirium Screening RASS: Alert and calm Confusion Assessment Method-ICU (CAM-ICU/PCAM-ICU) Feature 3: Altered Level of Consciousness: Negative Cognition Overall Cognitive Status: Within Functional Limits Arousal/Alertness: Appropriate responses to stimuli Mood/Behavior: Alert Orientation Level: Oriented X4 Single Step Commands: Consistently Multi-Step Commands: Consistently Method of Communication: Verbal Right Upper Extremity Examination RUE Assessment: Within Functional Limits Manual Muscle Testing - RUE: Within functional limits Left Upper Extremity Examination LUE ROM Assessment LUE Assessment: Within Functional Limits Manual Muscle Testing - LUE Manual Muscle Testing - LUE: Within functional limits Right Lower Extremity Examination RLE ROM Assessment RLE Assessment: Within Functional Limits (pain limited hip flexion) Manual Muscle Testing - RLE Manual Muscle Testing - RLE: Within functional limits Left Lower Extremity Examination LLE Assessment: Within Functional Limits Manual Muscle Testing: Within functional limits Therapeutic Activity (20 minutes) Patient requires assist with lines and set-up prior to mobility. Verbal cues for sequencing and body mechanics for improved transfer techniques. Min-A needed to assist trunk to upright position. Cuesfor hand placement to push off from seat and to control with return to sitting position. Completes x2 STS from EOB to RW - RW brought from home is adjusted to better fit height but device is pediatric sized. Patient will need standard adult size RW. Patient become nauseas during gait. Improves withseated rest in recliner in ~5 minutes. RN is made aware. Addressed patient and family questions regarding mobility and educated in PT POC, goals, and d/c recommendations. See sections below for further intervention detail: Bed Mobility Bed Mobility Exam: Scooting/Bridging Level of [place]: Minimum assist (75% patient's effort) (to EOB) Physical/Nonphysical Assist: Verbal Cues Assistive Device: Bed rails Bed Mobility Exam: Supine to Sit Level of [place]: Contact guard Physical/Nonphysical Assist: Verbal Cues, Nonverbal cues (demo/gestures) Assistive Device: Bed rails Transfers Transfer Exam: Sit to stand Level of [place]: Contact guard Physical/Nonphysical Assist: Verbal Cues, Nonverbal cues (demo/gestures) Assistive Device: Walker, rolling Transfer Exam: Stand to Sit Level of [place]: Contact guard Physical/Nonphysical Assist: Verbal Cues, Nonverbal cues (demo/gestures) Assistive Device: Walker, rolling Balance Postural Appearance Posture: Within Functional Limits Static Sitting Balance Static Sitting-Balance Support: Feet supported, Right upper extremity support, Left upper extremitysupport Static Sitting-Level of Assistance: Standby assist Dynamic Sitting Balance Dynamic Sitting-Balance Support: Right upper extremity support, Left upper extremity support Dynamic Sitting-Balance: Lateral weight shifts, Anterior/Posterior weight shifts Level of Assistance: Contact guard Static Standing Balance Static Standing-Balance Support: Right upper extremity support, Left upper extremity support Static Standing-Level of Assistance: Standby assist Dynamic Standing Balance Dynamic Standing-Balance Support: Right upper extremity support, Left upper extremity support Dynamic Standing-Balance: Lateral weight shifts, Anterior/Posterior weight shifts Dynamic Standing Level of Assistance: Contact guard Gait Training (10 minutes) Device: Rolling walker Assistance: Contact guard assist Distance: 25' Gait Analysis: Slow gait speed, shortened step length, step-to pattern, narrow CARMELO Gait Training Interventions: Verbal cues for sequencing and increased CARMELO. x1 standing rest break needed due to onset of nausea. Therapeutic Exercise Patient performed isometric exercises per protocol including ankle pumps, quad sets and gluteal sets x 10 repetitions bilaterally with verbal cues. Educated to complete every waking hour for decreased risk of DVTs and reduced swelling. Standardized Assessments Standardized Assessments Standardized Assessments: AMPA 6-Clicks Mobility Assessment AMPA 6-Clicks Mobility Assessment Difficulty patient has turning over in bed (including adjusting bedclothes, sheets, and blankets)?:A little Difficulty patient has sitting down on and standing up from a chair with arms (wheelchair, bedside commode, etc.)?: A little Difficulty patient has moving from lying on back to sitting on the side of the bed?: A little How much help does the patient need moving to and from a bed to a chair (including a wheelchair)?: A little How much help does the patient need to walk in hospital room?: A little How much help does the patient need climbing 3-5 steps with a railing?: A little [facility] 6-Clicks Mobility Assessment Total : 18 No data recorded Assessment Patient completes PT evaluation with good participation and mild limitations due to onset of nausea. Demonstrates ability to perform safe bed level mobility, transfers, and short distance ambulation with CGA using a RW. Family are present and report to be a good support system when patient discharges. Anticipate patient will be safe to discharge home with assistance once medically appropriate. Recommend OP PT to continue post-op rehabilitation. Will continue to follow with IP PT services to progress towards functional goals and prepare for safe discharge home. Impairments: Decreased endurance, ventilation, and/or gas exchange, Impaired functional mobility/transfers, Impaired balance, Decreased strength, Impaired gait dynamics/performance Activity Limitations: Inability to sit independently, Inability to ambulate independently, Inability to ambulate community distances, Inability to ambulate household distances, Inability to transfer independently, Inability to complete ADLs independently Participation Restrictions: Self-care, Home management, Community leisure Activity Tolerance: Tolerates 10 - 20 min activity with multiple rests Evaluation/Treatment Tolerance: Other (Comment) (nausea) Diagnosis: impaired functional mobility Rehab Potential: Good, to achieve stated therapy goals Eval Complexity History Profile: 3 or more personal factors and/or comorbidities Clinical Presentation: Stable and/or uncomplicated characteristics Clinical Decision Making: Low complexity PT Recommendations Discharge Destination: Home with assistance, Outpatient PT Discharge Equipment: Rolling walker Plan Planned PT Interventions Gait training, Neuromuscular re-education, Functional Mobility, Strengthening PT Frequency Twice daily PT Duration 2 weeks Goals PT GOAL DETAILS Time Frame PT Goal 1: Patient will transfer from sitting <> standing using RW and SBA. 2 weeks PT Goal 2: Patient will safely ambulate 150' using RW and SBA. 2 weeks PT Goal 3: Patient will negotiate 4 steps using hand rails and SBA. 2 weeks PT Goal 4: Patient will complete HEP with supervision. 2 weeks Written by Eugenie Manriquez on 02/11/25 at 4:37 PM. * Op Note - Abdelrahman Betancur MD - 02/11/2025 11:58 AM EDT Operative Note Date: 02/11/25 Location: [facility] OR Name: Pryia Lynn, : 1955, SURGEON: Abdelrahman Betancur M.D. [employer] DRILLING MACHINE OPERATOR #1: Brian Mayo MD as there was no qualified resident available [employer] DRILLING MACHINE OPERATOR #2: Luis Manuel Everett MD PREOPERATIVE DIAGNOSIS: Advanced degenerative joint disease secondary to osteoarthritis of the Left Hip POSTOPERATIVE DIAGNOSIS: same PROCEDURE: Left Anterior Total Hip Arthroplasty IMPLANTS: Acetabular component: Wellington [employer] Nephew R3 50 mm Acetabular screws: 35, 25 mm Acetabular liner: 50/38 OR3O Oxinium Femoral component: SL LEISA Sz 6 Std Femoral head: 28+0 mm Oxinium, OR3O XLPE SURGICAL DETAILS: 1) Incision type: Modified Hueter 2) Incision length: 10 cm 3) Muscle repair: None 4) Case duration: 90 min 5) Estimated blood loss: 300 cc? 6) Crystalloid replacement: 1000 cc 7) Anesthesia type: General 8) Capsular injection: 60 cc 0.5% Bupivacaine with epinephrine 9) Specimens removed: Femoral head and acetabular reamings. 10) Preoperative antibiotics: 2 g Cefazolin , 1 g Vancomycin 11) TXA: 2g intravenous INDICATIONS FOR PROCEDURE: This patient presents for total hip arthroplasty for advanced degenerative joint disease of the hip. The patient has failed non-operative treatment. Risks, complications, and benefits of the procedure have been discussed preoperatively to include but not limited to infection, bleeding, anesthesia risks, sciatic nerve palsy, femoral nerve palsy, thigh numbness, instability, limb length discrepancy, aseptic loosening, osteolysis, DVT, continued pain, iatrogenic fracture, TN, stroke, and . The patient completed preoperative medical clearance and joint arthroplasty education. PROCEDURE: The patient was seen in the preoperative holding area. The operative site was confirmed and marked.SCD was placed on the nonoperative leg. The risks, benefits, and alternatives to surgery were againconfirmed with the patient and they wished to proceed. The patient was given iodine swabs for the nares for MRSA decolonization. The patient was brought to the operating room and placed on the operating room table in the supine position. After anesthesia was established, the bilateral ankles were padded with ABD pads, soft roll, and Coban. The feet were placed in the traction boots. The perineal post pad was placed. All bonyprominences were otherwise padded. A surgical time out was taken to confirm the operative side and planned procedure. The patient was given prophylactic antibiotics with Vancomycin and another antibiotic for gram negative coverage within one hour of skin incision. Vancomycin was given over concerns for MRSA infection and the other antibiotic for gram negative coverage. The patient was also given TXA and at skin closure. The hip was prepped and draped in the usual sterile fashion. The patient had complete paralysis at this point to prevent traction related injury. AP of the pelvis was obtained to standardize the hipsfor comparison later in the case. A modified Hueter approach was performed. The incision was carried through the subcutaneous tissue to the underlying tensor fascia , which were incised. The tensor muscle was teased off of the fascia. Retractors were then placed to further develop the interval between the tensor fascia and the rectus femoris. The ascending branches of the lateral femoral circumflex vessels were coagulated using the Aquamantys. Retractors were then placed under the rectus and over the medial capsule and also the superior capsule. The capsulotomy was then performed and suture were placed in both the medial and lateral portions. Sufficient medial capsular release was performed. The femoral neck cut was performed after verifying its position with fluoroscopy. With slight traction and external rotation, the femoral head was removed. Retractors were then placed to expose the acetabulum. The acetabulum was reamed to give a line to line press fit, using fluoroscopy for assistance. The acetabular component was impacted into position targeting 40-45 degrees of abduction and 20-25 degrees of anteversion. Screw fixation was utilized to enhance acetabular component fixation. Fluoroscopy was used to confirm acetabular component position. The acetabular liner was placed and impacted into position. The liner locking mechanism engaged. Attention was then turned to the femoral side. With the femur rotated to 120o without any traction, a retractor was placed medially to the calcar.The superolateral capsular release was then performed to allow for delivering the femur up into theincision. The hip was then placed in extension and adduction. Retractor was then placed over the tip of the greater trochanter. Femoral preparation was started with a box osteotome and canal finder. The canal was sequentially broached to a stable fit. The final broach was impacted into position in approximately 10 degrees of anteversion, following the posterior calcar for assistance with version.. The trial head was placed. Retractors were removed. The leg was then brought into neutral, and then traction was applied with internal rotation to reduce the hip. Fluoroscopy was used to check the stem size, position, and leg lengths. The hip stability was assessed. The hip was stable in extensionand external rotation as well as in flexion, adduction of 20 degrees and internal rotation to 80 degrees. The hip was dislocated, the trial broach was removed, the canal irrigated with pulsatile lavage and dried, and the final stem was inserted in routine fashion. After placement of the stem, the trunnion was cleansed and dried and the modular head firmly impacted in place and the hip reduced. Again, leg length assessment and stability assessment of the hip were performed to confirm optimal component selection. The wound was irrigated with sterile dilute betadine solution and hemostasis obtained. Final imaging of the hip was obtained. Vancomycin powder was placed into the hip incision. 1g TXA was given IV at this point. The pericapsular injection was performed with the local anesthetic. The anterior hip capsule was repaired utilizing the #5 Fiberwire. The tensor fascia was then closed with #1 Vicryl and Stratafix. The subcutaneous tissue was closed in layers with Stratafix with skin closure using a running subcuticular and Dermabond Prineo followed by Tegaderm dressing. SCD was placed to the operative limb. The patient tolerated the procedure well and was taken to the recovery room in good condition. Complications: None apparent. Sponge, instrument, and needle counts were correct x 2. Delay in starting chemical prophylaxis for 23 hours from surgical incision was over concerns for hematoma formation and wound related issues. There was no qualified resident for this case. Brian Mayo MD who has operative credentials at the [facility]. His assistance was needed for exposure, retraction, implantation and closure of the wound. I was present for the entire procedure. Submitted by: Abdelrahman Betancur MD - 02/11/2025 Hip Approach: Direct anterior AJRR Anticipated Discharge or exclusion: Anticipate discharge home. * Consults - Jackie Lopes PA - 02/11/2025 11:02 AM EDTAssociated Order(s): [facility] consult to Hor[facility] Rob[facility] Nadja Consult performed by: Jackie Lopes PA Consult ordered by: Abdelrahman Betancur MD Reason For Consult: medical co-management Requested Service: ortho reconstruction Requested Date/Time: 02/11/2025 4816 HISTORY: History Of Present Illness/Chief Complaint: Priya Lynn is a 69 y.o. female with a PMH of hypertension, severe aortic stenosis s/p TAVR, osteoarthritis, stage 4 lung cancer with metastasis to brain s/p gamma knife on chemo, remote history of uterine & ovarian cancer s/p chemo & resection, and anemia presenting for elective left total hip arthroplasty. Medicine is consulted for medical co-management. Patient recently underwent TAVR for severe aortic stenosis on 12/27/24 at after which she states she has recovered well. was diagnosed earlier this year at pre-op testing appointment prompting further cardiac workup which revealed severe . Endorses mild chronic lower extremity edema and fatigue which she attributed to long-term chemo use. Continues to note mild edema but does feel as though her fatigue has improved. States last dose of Tagrisso was 01/28 in preparation for procedure, plans to hold until ortho follow up on 02/26. Lives alone but has several local relatives for support who are present at bedside. Reports taking amlodipine and ASA 81mg this am. She denies lightheadedness, dizziness, recent falls. States she has recently gotten new glasses. Review of Systems Review of Systems Constitutional: Negative for chills and fever. HENT: Negative. Eyes: Negative. Respiratory: Negative for apnea, choking and shortness of breath. Cardiovascular: Positive for leg swelling (mild & chronic per patient). Gastrointestinal: Negative. Endocrine: Negative. Genitourinary: Negative for difficulty urinating and dysuria. Musculoskeletal: Positive for arthralgias and gait problem. Reports no recent falls Skin: Negative. Allergic/Immunologic: Negative. Neurological: Negative for dizziness and light-headedness. Hematological: Bruises/bleeds easily (on ASA). Psychiatric/Behavioral: Negative. Past Medical History Essential hypertension Severe aortic stenosis s/p TAVR 12/27/24 Stage 4 non small cell lung cancer with brain metastasis s/p Gamma knife 02/2021, SBRT to WILLIAM mass 04/23/2022, remains on Tagrisso Osteoarthritis Anemia Obesity History of uterine an ovarian cancer s/p surgical resection and chemo, 2005 Surgical History Past Surgical History: Procedure Laterality Date BRONCHOSCOPY RIGID / FLEXIBLE N/A CARDIAC VALVE SURGERY 12/27/2024 TAVR CHOLECYSTECTOMY N/A COLONOSCOPY 08/02/2023 GAMMA KNIFE 2020 HYSTERECTOMY N/A LUNG BIOPSY Family History Family History Problem Relation Name Age of Onset Cervical cancer Mother Lung cancer Father Lung cancer Brother Liver cancer Brother Anesthesia problems Neg Hx Malig Hyperthermia Neg Hx Social History Social History Tobacco Use Smoking status: Never Smokeless tobacco: Never Vaping Use Vaping status: Never Used Substance Use Topics Alcohol use: Never Drug use: Never Lives independently in [facility] Mobility assist device: walker Allergies No Known Allergies MEDICATIONS: Home Medications: Current Outpatient Medications Medication Instructions amLODIPine (Norvasc) 5 MG tablet 1 tablet, Daily aspirin 81 mg, Daily lisinopril-hydroCHLOROthiazide 20-12.5 MG tablet 2 tablets, Daily meloxicam (MOBIC) 15 mg, Daily Osimertinib Mesylate 80 MG tablet 1 tablet, Oral, Daily potassium chloride CR (Klor-Con) 10 MEQ ER tablet 10 mEq, Daily Inpatient Medications: Scheduled: scopolamine, 1 patch, Transdermal, Once tranexamic acid, 1,000 mg, Intravenous, Once tranexamic acid, 1,000 mg, Intravenous, Once Continuous: As needed: lidocaine, 0.5 mL, Once PRN sodium chloride, 10 mL, q8h PRN And sodium chloride, 10 mL, PRN sodium chloride, 10 mL, q8h PRN And sodium chloride, 10 mL, PRN EXAM: Last Recorded Vitals Vitals: 02/11/25 0903 02/11/25 0919 BP: (!) 145/59 Pulse: 80 Resp: 16 Temp: 36.5 ??C (97.7 ??F) TempSrc: Temporal SpO2: 97% Weight: 79.8 kg (176 lb) Height: 1.626 m (5' 4 ) No intake or output data in the 24 hours ending 02/11/25 1103 Admission weight: Weight: 79.8 kg (176 lb) Physical Exam Vitals and nursing note reviewed. Constitutional: General: She is awake. Appearance: Normal appearance. HENT: Head: Normocephalic and atraumatic. Mouth/Throat: Mouth: Mucous membranes are dry. Eyes: General: Lids are normal. Right eye: No discharge. Left eye: No discharge. Cardiovascular: Rate and Rhythm: Normal rate and regular rhythm. Pulses: Dorsalis pedis pulses are 1+ on the right side and 1+ on the left side. Posterior tibial pulses are 1+ on the right side and 1+ on the left side. Pulmonary: Effort: Pulmonary effort is normal. No respiratory distress. Breath sounds: Normal breath sounds. No rales. Abdominal: General: Bowel sounds are decreased. There is no distension. Palpations: Abdomen is soft. Tenderness: There is no abdominal tenderness. Musculoskeletal: Cervical back: Neck supple. Right lower le+ Edema present. Left lower leg: Edema (trace (chronic at baseline per patient)) present. Lymphadenopathy: Cervical: No cervical adenopathy. Neurological: Mental Status: She is alert and oriented to person, place, and time. Psychiatric: Attention and Perception: Attention normal. Mood and Affect: Mood normal. RESULTS: Recent labs and imaging personally reviewed and noted below: Labs: CMP: Lab Results Component Value Date GLUCOSE 99 12/28/2024 BUN 20 12/28/2024 CREATININE 0.83 12/28/2024 BCR 24 12/28/2024 NA 140 12/28/2024 K 4.1 12/28/2024 CL 106 12/28/2024 CO2 23 12/28/2024 ALBUMIN 4.0 12/11/2024 ALKPHOS 70 12/11/2024 BILITOT 0.7 12/11/2024 A1C: Lab Results Component Value Date HGBA1C 4.9 09/28/2024 CBC: Lab Results Component Value Date WBC 8.36 12/28/2024 HGB 10.0 (L) 12/28/2024 HCT 30.3 (L) 12/28/2024 MCV 92 12/28/2024 PLT 122 (L) 12/28/2024 Cardiology: Encounter Date: 12/27/24 ECG Adult - POD#1 Result Value EKG DIAGNOSIS CLASS Abnormal Ventricular Rate 85 Atrial Rate 85 RI Interval 150 QRSD Interval 90 QT Interval 386 QTC Interval 459 P [place] -1 R [place] -36 T Wave [place] 20 Diagnosis Normal sinus rhythm Diagnosis Left axis deviation Diagnosis Anteroseptal infarct , age undetermined Diagnosis Diagnosis Diagnosis Confirmed by Bret Yepez ([id number]) on 12/28/2024 5:35:03 PM *Note: Due to a large number of results and/or encounters for the requested time period, some results have not been displayed. A complete set of results can be found in Results Review. Echo, Adult Transthoracic (TTE) Limited Result Date: 12/28/2024 Aortic Valve: There is a transcatheter bioprosthetic [...] function is vigorous with an estimated left ventricularejection fraction of 65-70% Right Ventricle: The right ventricular systolic function is grossly normal. Pericardium: No pericardial effusion. Compared to the most recently available prior study, and a llowing for differences in image quality and technique, aortic valve gradient has increased in setting of high cardiac output. Echo, Adult Transthoracic (TTE) Limited Result Date: 12/27/2024 Aortic Valve: There is a appropriately positioned [...] is no recent study available for direct lhzx-ce-laxj comparison. ASSESSMENT AND PLAN: Priya Lynn is a 69 y.o. female with past medical history of stage 4 lung cancer with metastasis to the brain s/p gamma knife, uterine & ovarian cancer s/p chemo & resection, severe aortic stenosis s/p TAVR, anemia, osteoarthritis, and hypertension who presents schedule for left total hip arthroplasty. Medicine is consulted for medical co management. Essential hypertension History of severe aortic stenosis s/p TAVR - found incidentally at PAT appt spring 2024, s/p TAVR 12/27/[address] surgery - Echo 12/28 with abnormally high prosthetic valve gradient due to high CO (EF 65-70%), has follow up echo scheduled on 03/06 - ECG 12/27 reviewed with NSR - Mildly hypertensive on arrival, reports taking home amlodipine this am, lisinopril-hydrochlorothiazide held for OR - Resume amlodipine in am, resume lisinopril and hydrochlorothiazide thereafter depending on BP trend - On indefinite ASA 81mg daily with last dose this am, recommend resuming post- op if no contraindication from a surgical standpoint Bilateral hip ostearthritis with associated reduced mobility - Sched for left CLAY today - PT/OT eval pending post-op, mobilizes with walker at baseline - DVT ppx: ASA 81mg bid, per primary - Analgesia and bowel regimen per primary - Tentatively scheduled for right CLAY on 04/08/25 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 Dillard) - Per patient, plans to hold Tagrisso until ortho follow up in ~ 2 weeks Normocytic anemia, POA - Baseline Hgb ~ 11.0-11.8 since 01/2024, most recent Hgb 10.0 12/28 POD1 following TAVR so likely some degree of acute blood loss - Given baseline ASA use with last dose this am, mild anemia, and underlying malignancy on chemo, recommend obtaining CBC in am Hypomagnesemia - Magnesium 1.6 12/28 s/p replacement prior to discharge from , trend level in am Obesity, mild - BMI 30.21, complicates aspects of care Thank you for allowing us to participate in this patient's care, we will continue to follow. Pleasecontact the hospital medicine NIA ([facility] consult NIA 7A- 7P, night NIA 7P-7A) with questions or concerns. Jackie Lopes PA-C Division of Hospital Medicine Secure chat preferred Cosigned by Kelvin Rosales MD at 02/11/2025 3:31 PM EDT Associated attestation - Kelvin Rosales MD - 02/11/2025 3:31 PM EDT The patient was seen only by Advanced Practice Provider (NIA). * H&P - Kelvin Everett MD - 02/11/2025 10:12 AM EDT Chief Complaint: Left Hip Pain History of Present Illness: Priya Lynn is a 69 y.o. female presenting with above complaint and was previously evaluated and deemed a candidate for surgery based on history and physical exam. They are feeling well on day ofsurgery. No changes to medical history. All questions answered. Past Medical History: has a past medical history of Arthritis, Cancer (CMS/HCC), High blood pressure, and Osteoarthritis. She has no past medical history of Adverse effect of anesthesia or Malignant hyperthermia. Surgical History: has a past surgical history that includes Cholecystectomy (N/A); Hysterectomy (N/A); Rigid / flex bronch w/ lavage / Bx / Fb removal (N/A); Lung biopsy; Colonoscopy (08/02/2023); Gamma Knife (2020); and Cardiac valuve replacement (12/27/2024). Family History: Family History[1] Social History: reports that she has never smoked. She has never used smokeless tobacco. She reports that she does not drink alcohol and does not use drugs. Allergies: Patient has no known allergies. Medications: Current Medications[2] Review of systems: negative unless noted in the HPI Physical exam: Last recorded vitals: Blood pressure (!) 145/59, pulse 80, temperature 36.5 ??C (97.7 ??F), temperature source Temporal, resp. rate 16, height 1.626 m (5' 4 ), weight 79.8 kg (176 lb), SpO2 97%. refer to nursing notes General: no apparent distress, nonlabored breathing HEENT: speaks clearly, eyes open CV: perfused extremities Respiratory: moves air well, nonlabored breathing Ext: Left Lower Extremity: Inspection: No evidence of skin lesions, rashes, or wounds Motor: Motor intact GSC/TA/EHL/FHL Sensory: SILT in Sa, Vega, Dp, Sp, and T nerve distributions Vascular: Foot is WWP Refer to anesthesiology H and P for other pertinent physical findings related to surgical preparedness. Assessment/Plan: Arthritis of left hip Procedure(s) (LRB): ARTHROPLASTY, HIP, TOTAL, ANTERIOR APPROACH (Left) NPO since midnight Left Lower Extremity is marked Informed consent obtained To OR with Dr. Betancur for Left Total Hip Arthroplasty Kelvin Everett MD Orthopedic Surgery PGY-2 [facility] Personal Pager: [phone] Orthopaedic Trauma Service Pager: [phone] Orthopaedic Recon/Spine/Foot and Ankle Service Pager: [phone] [1] Family History Problem Relation Name Age of Onset Cervical cancer Mother Lung cancer Father Lung cancer Brother Liver cancer Brother Anesthesia problems Neg Hx Malig Hyperthermia Neg Hx [2] Current Facility-Administered Medications Medication Dose Route Frequency Provider Last Rate Last Admin acetaminophen (Tylenol) tablet 1,000 mg 1,000 mg Oral Once Abdelrahman Betancur MD aprepitant (Emend) capsule 40 mg 40 mg Oral Once Felipe Gómez MD dexamethasone (Decadron) injection 8 mg 8 mg Intravenous Once Abdelrahman Betancur MD gabapentin (Neurontin) capsule 300 mg 300 mg Oral Once Abdelrahman Betancur MD ketorolac (Toradol) injection 15 mg 15 mg Intravenous Once Abdelrahman Betancur MD lidocaine (Xylocaine) 1 % injection 0.5 mL 0.5 mL Injection Once PRN Felipe Gómez MD oxyCODONE (Roxicodone) immediate release tablet 5 mg 5 mg Oral Once Abdelrahman Betancur MD scopolamine (Transderm-Scop) patch 1 patch 1 patch Transdermal Once Abdelrahman Betancur MD sodium chloride 0.9 % flush 10 mL 10 mL Intravenous q8h PRN Felipe Gómez MD And sodium chloride 0.9 % flush 10 mL 10 mL Intravenous PRN Felipe Gómez MD sodium chloride 0.9 % flush 10 mL 10 mL Intravenous q8h PRN Abdelrahman Betancur MD And sodium chloride 0.9 % flush 10 mL 10 mL Intravenous PRN Abdelrahman Betancur MD traMADol (Ultram) tablet 50 mg 50 mg Oral Once Abdelrahman Betancur MD tranexamic acid (Cyklokapron) IVPB 1,000 mg 1,000 mg Intravenous Once Abdelrahman Betancur MD tranexamic acid (Cyklokapron) IVPB 1,000 mg 1,000 mg Intravenous Once Abdelrahman Betancur MD vancomycin in NS (Vancocin) IVPB 1,250 mg 1,250 mg Intravenous Once Abdelrahman Betancur MD 200 mL/hrat 02/11/25 0932 1,250 mg at 02/11/25 0932 Cosigned by Abdelrahman Betancur MD at 02/11/2025 10:34 AM EDT Associated attestation - Abdelrahman Betancur MD - 02/11/2025 10:34 AM EDT I saw and evaluated the patient with the resident/fellow. I discussed the case with the resident/fellow and agree with the findings and plan as documented. documented in this encounter Plan of Treatment Upcoming Encounters Date Type Department Care Team (Late st Contact Info) Description 03/06/2025 10:00 AM EDT Appointment Medical Office Building Cardiac Diagnostic Testing Medical Office Building Echo Lab [address] [facility] [address] [facility] [address] [facility], [address] [place] [address] 03/06/2025 11:30 AM EDT Office Visit [facility] [place] [address] [facility] [address] [facility], [address] [place] [address] Dian Yancey PA [address] [place] [phone] 03/26/2025 11:10 AM EDT Office Visit Medical Office Building Surgery [facility] [address] [facility], [address] [place] [address] Abdelrahman Betancur MD [address] [place] [address] 04/02/2025 9:40 AM EDT Appointment [facility] [address] [place] [phone] 04/02/2025 10:45 AM EDT Appointment [facility] [address] [place] [phone] 04/02/2025 1:15 PM EDT Clinical Support [facility] [address] [facility]nd [place] [address] 04/02/2025 1:40 PM EDT Office Visit [facility] [address] [facility] [place] [phone] Rudolph Dillard MD [address] [phone] 04/08/2025 7:30 AM EDT Hospital Encounter [facility] Operating Room [address] [place] [address] Abdelrahman Betancur MD [address] [place] [address] 04/08/2025 7:30 AM EDT - 04/08/2025 10:15 AM EDT Surgery [facility] Operating Room [address] [place] [address] Abdelrahman Betancur MD [address] [place] [address] ARTHROPLASTY, HIP, TOTAL, ANTERIOR APPROACH [26593 (CPT )] 04/23/2025 11:00 AM EDT Office Visit Medical Office Building [facility] [address], [address] [place] [address] Renetta Stoner PA [address] [place] [phone] 05/21/2025 11:10 AM EST Office Visit Medical Office Building [facility] [address], [address] [place] [phone] Abdelrahman Betancur MD [address] [place] [phone] 01/08/2026 2:00 PM EDT Appointment Medical Office Building Cardiac Diagnostic Testing Medical Office Building Echo Lab [address] [facility], [address] [place] [phone] 01/08/2026 3:00 PM EDT Office Visit [facility] [place] [address], [address] [place] [phone] Dian Yancey PA [address] [place] [address] Scheduled Procedures Name Priority Associated Diagnoses Date/Ti me ARTHROPLASTY, HIP, TOTAL, ANTERIOR APPROACH Arthritis of right hip 04/08/2025 7:30 AM EDT Scheduled Referrals Name Type Priority Associated Diagnoses Order Schedule Discharge Ambulatory referral to Physical Therapy Outpatient Referral Routine Arthritis of left hip 1 Occurrences starting 02/12/2025 until 08/16/2026 documented as of this encounter Goals Goal Patient Goal Type Associated Problems Recent Progress Patient-Stated? Author Autogenerat ed Goal Care Plan Autogenerated Problem No Latisha Sun documented as of this encounter Procedures Procedure Name Priority Date/Time Associated Diagnosis Comments CBC W/O DIFFERENTIAL Routine 02/12/2025 3:48 AM EDT XR HIP LEFT 2 OR 3 VIEWS STAT 02/11/2025 1:43 PM EDT FL LESS THAN 1 HOUR (NON-REPORTABLE) Routine 02/11/2025 12:46 PM EDT SURGICAL PATHOLOGY EXAM Routine 02/11/2025 12:37 PM EDT Arthritis of left hip RI TOTAL HIP ARTHROPLASTY 02/11/2025 11:13 AM EDT Arthritis of left hip documented in this encounter Results * (ABNORMAL) CBC W/O Differential (02/12/2025 3:48 AM EDT) WBC Count 13.21(H) 3.70 - 10.30 10*3/uL LAB HEMATOLOGY METHOD 02/12/2025 3:54 AM EDT [facility] RBC Count 2.80(L) 3.90 - 5.20 10*6/uL LAB HEMATOLOGY METHOD 02/12/2025 3:54 AM EDT [facility] HGB 8.5(L) 11.2 - 15.7 g/dL LAB HEMATOLOGY METHOD 02/12/2025 3:54 AM EDT [facility] HCT 25.4(L) 34.0 - 45.0 % LAB HEMATOLOGY METHOD 02/12/2025 3:54 AM EDT [facility] Platelet Count 133(L) 155 - 369 10*3/uL LAB HEMATOLOGY METHOD 02/12/2025 3:54 AM EDT [facility] MCV 91 79 - 98 fL LAB HEMATOLOGY METHOD 02/12/2025 3:54 AM EDT [facility] MCH 30.4 26.0 - 32.0 pg LAB HEMATOLOGY METHOD 02/12/2025 3:54 AM EDT [facility] MCHC 33.5 30.7 - 35.5 g/dL LAB HEMATOLOGY METHOD 02/12/2025 3:54 AM EDT [facility] RDW 13.1 11.5 - 14.5 % LAB HEMATOLOGY METHOD 02/12/2025 3:54 AM EDT [facility] MPV 10.2 8.8 - 12.5 fL LAB HEMATOLOGY METHOD 02/12/2025 3:54 AM EDT [facility] nRBC 0.0 <=0.0 per 100 WBCs LAB HEMATOLOGY METHOD 02/12/2025 3:54 AM EDT [facility] Blood Venous blood specimen / Unknown Venipuncture / Unknown 02/12/2025 3:48 AM EDT 02/12/2025 3:52 AM EDT us Jackie BILL LAB BLOOD ORDERABLES Final Res ult [facility] [address] [place] [address] * XR Hip Left 2 or 3 Views (02/11/2025 1:43 PM EDT) Anatomical Region Laterality Modality Lower Extremities, Hip Left Digital R adiography Impressions 02/11/2025 6:56 PM EDT Status post total left hip replacement with expected postsurgical gas. Severe osteoarthrosis of the right hip. CRITICAL RESULT: No. COMMUNICATION: Per this written report. Drafted by Fili Garza MD on 02/11/2025 6:53 PM Final report signed by Fili Garza MD on 02/11/2025 6:56 PM Narrative 02/11/2025 6:56 PM EDT CLINICAL INDICATION: TOTAL LEFT HIP REPLACEMENT TECHNIQUE: XR HIP LEFT 2 OR 3 VIEWS COMPARISON: 07/31/2024 FINDINGS: Status post total left hip replacement. No hardware complications apparent. Postsurgical soft tissue gas present. No acute fracture or malalignment. Severe osteoarthrosis of the right hip Procedure Note Fili Garza MD - 02/11/2025 CLINICAL INDICATION: TOTAL LEFT HIP REPLACEMENT TECHNIQUE: XR HIP LEFT 2 OR 3 VIEWS COMPARISON: 07/31/2024 FINDINGS: Status post total left hip replacement. No hardware complicationsapparent. Postsurgical soft tissue gas present. No acute fracture ormalalignment. Severe osteoarthrosis of the right hip IMPRESSION: Status post total left hip replacement with expected postsurgical gas. Severe osteoarthrosis of the right hip. CRITICAL RESULT: No. COMMUNICATION: Per this written report. Drafted by Fili Garza MD on 02/11/2025 6:53 PM Final report signed by Fili Garza MD on 02/11/2025 6:56 PM Abdelrahman Betancur MD IMG XR PROCEDURES Final Resu lt * FL Less than 1 Hour Intraoperative (02/11/2025 12:46 PM EDT) Narrative IMAGING - 02/11/2025 12:47 PM EDT Images were obtained for surgical purposes. See Abdelrahman Betancur's surgical note in the patient's chart for the findings. us Abdelrahman Betancur MD IMG FLUOROSCOPY PROCEDURES F inal Result IMAGING * Surgical Pathology Exam (02/11/2025 12:37 PM EDT) Case Report Surgical Pathology Case: [id number] Authorizing Provider: Abdelrahman Betancur MD Collected: 02/11/2025 1237 Ordering Location: [facility] Operating Room Received: 02/11/2025 1432 Pathologist: Marielena Garay MD Specimen: Hip, Left, Femoral Head (gross only) 02/13/2025 3:33 PM EDT [facility] Final Diagnosis FEMORAL HEAD, EXCISION: -DEGENERATIVE JOINT DISEASE 02/13/2025 3:33 PM EDT [facility] at 1533 EDT Clinical Information Arthritis of left hip [M16.12] 02/13/2025 3:33 PM EDT [facility] Gross Description A. FEMORAL HEAD (GROSS ONLY) Received fresh and subsequently placed in formalin, labeled f emoral head is a femoral head measuring 4.6 x 4.6 x 5.7 cm. The articular surface is rios-brown. It is also roughened with pitting and osteophyte formation. Eburnation covers around 75% of the surface area and a severe amount of osteophyte formation is grossly seen. Sectioning reveals a yellow-rios porous cut surface with a mild to moderate amount of hemorrhaging. Gross photographs are taken and the specimen is submitted for gross only. Terese Tolliver 02/13/2025 3:33 PM EDT [facility] Note: A resident was involved in the service. I attest I examined the relevant preparations for the specimens and confirmed the diagnosis or interpretation. 02/13/2025 3:33 PM EDT [facility] Bone Left hip region structure / Unknown 02/11/2025 12:37 PM EDT 02/11/2025 2:32 PM EDT Comment:Pre-op diagnosis: Arthritis of left hip [M16.12] us Abdelrahman Betancur MD LAB PATHOLOGY ORDERABLES Cirilo flores Result [facility] [address] [place] [address] documented in this encounter Visit Diagnoses Diagnosis Arthritis of left hip- Primary Arthritis of right hip documented in this encounter Admitting Diagnoses Diagnosis Arthritis of left hip documented in this encounter Administered Medications Inactive Administered Medications - up to 3 most recent administrations Medication Order MAR Action Action Date Dose Rate Site acetaminophen (Tylenol) tablet 1,000 mg 1,000 mg, Oral, Once, 1 dose, On Tue02/11/25 at 1000, Routine, Holding - Preprocedure Given 02/11/2025 10:39 AM EDT 1,000 mg acetaminophen (Tylenol) tablet 1,000 mg 1,000 mg, Oral, Every 8 hours scheduled, First dose on Tue02/11/25 at 1500, Until Discontinued, Routine, Recovery(Phase II-Outpatient)/On Unit(Inpatient) Given 02/12/2025 1:32 PM EDT 1,000 mg Given 02/12/2025 5:18 AM EDT 1,000 mg Given 02/11/2025 9:29 PM EDT 1,000 mg aprepitant (Emend) capsule 40 mg 40 mg, Oral, Once, 1 dose, On Tue02/11/25 at 1000, Routine, Holding - Preprocedure Given 02/11/2025 10:39 AM EDT 40 mg aspirin chewable tablet 81 mg 81 mg, Oral, 2 times daily, First dose on Tue02/12/25 at 0900, Until Discontinued, Routine, Recovery(Phase II-Outpatient)/On Unit(Inpatient) Given 02/12/2025 8:36 AM EDT 81 mg bethanechol (Urecholine) tablet 20 mg 20 mg, Oral, Once as needed, 1 dose, Starting on Tue02/11/25 at 1403, Until Tue02/12/25 at 1657, Routine, Recovery(Phase II-Outpatient)/On Unit(Inpatient), other, post-op urinary retention bisacodyl (Dulcolax) suppository 10 mg 10 mg, Rectal, 2 times daily PRN, Starting on Tue02/11/25 at 1403, Until Tue02/12/25 at 1657, Routine, Recovery(Phase II-Outpatient)/On Unit(Inpatient), constipation, for constipation - use if no bowel movement after giving magnesium hydroxide calcium-vitamin D 500-200 MG-UNIT per tablet 1 tablet 1 tablet, Oral, 2 times daily with meals, First dose on Tue02/11/25 at 2100, Until Discontinued, Routine, Recovery(Phase II-Outpatient)/On Unit(Inpatient) Given 02/12/2025 8:35 AM EDT 1 tablet Given 02/11/2025 9:29 PM EDT 1 tablet ceFAZolin (Ancef) injection 2 g 2 g, Intravenous, Every 8 hours, 3 doses, First dose on Tue02/11/25 at 1930, Last dose on Tue02/12/25 at 1130, Routine, Recovery(Phase II-Outpatient)/On Unit(Inpatient) Given 02/12/2025 11:11 AM EDT 2 g Given 02/12/2025 2:56 AM EDT 2 g Given 02/11/2025 10:29 PM EDT 2 g dexamethasone (Decadron) injection 8 mg 8 mg, Intravenous, Once, 1 dose, On Tue02/11/25 at 1000, Routine, Holding - Preprocedure Given 02/11/2025 10:40 AM EDT 8 mg diphenhydrAMINE (Benadryl) tablet 12.5 mg 12.5 mg, Oral, Every 4 hours PRN, Starting on Tue02/11/25 at 1403, Until Tue02/12/25 at 1657, Routine, Recovery(Phase II-Outpatient)/On Unit(Inpatient), itching, sleep gabapentin (Neurontin) capsule 300 mg 300 mg, Oral, Once, 1 dose, On Tue02/11/25 at 1000, Routine, Holding - Preprocedure Given 02/11/2025 10:40 AM EDT 30 0 mg HYDROmorphone (Dilaudid) injection 0.5 mg 0.5 mg, Intravenous, Every 6 hours PRN, Starting on Tue02/11/25 at 1403, Until Tue02/12/25 at 1657, Routine, Recovery(Phase II-Outpatient)/On Unit(Inpatient), severe pain, pain score 9-10 ketorolac (Toradol) injection 15 mg 15 mg, Intravenous, Once, 1 dose, On Tue02/11/25 at 1000, Routine, Holding - Preprocedure Given 02/11/2025 10:41 AM EDT 15 mg ketorolac (Toradol) injection 15 mg 15 mg, Intravenous, Every 6 hours scheduled, 8 doses, First dose on Tue02/11/25 at 1800, Last dose on Tue02/13/25 at 1200, Routine, Recovery(Phase II-Outpatient)/On Unit(Inpatient) Given 02/12/2025 11:11 AM EDT 15 mg Given 02/12/2025 5:19 AM EDT 15 mg Given 02/11/2025 11:41 PM EDT 15 mg lactated Ringer's infusion 10 mL/hr, Intravenous, Once, 1 dose, On Tue02/11/25 at 1000, Routine New Bag 02/11/2025 9:34 AM EDT 10 mL/hr 10 mL/hr lactated Ringer's infusion 50 mL/hr, Intravenous, Continuous, Starting on Tue02/11/25 at 1500, Until Tue02/12/25 at 1454, Routine New Bag 02/11/2025 11:41 PM EDT 50 mL/hr 50 mL /hr Continued from OR 02/11/2025 2:55 PM EDT 50 mL/hr 50 mL/ hr magnesium hydroxide (Milk of Magnesia) 400 MG/5ML suspension 30 mL 30 mL, Oral, 2 times daily PRN, Starting on Tue02/11/25 at 1403, Until Tue02/12/25 at 1657, Routine, Recovery(Phase II-Outpatient)/On Unit(Inpatient), constipation, for constipation - use as first line agent ondansetron (Zofran) injection 4 mg 4 mg, Intravenous, Every 6 hours PRN, Starting on Tue02/11/25 at 1403, Until Tue02/12/25 at 1657, Routine, Recovery(Phase II-Outpatient)/On Unit(Inpatient), nausea, vomiting Given 02/12/2025 11:50 AM EDT 4 mg oxyCODONE (Roxicodone) immediate release tablet 5 mg 5 mg, Oral, Once, 1 dose, On Tue02/11/25 at 1000, Routine, Holding - Preprocedure Given 02/11/2025 10:40 AM EDT 5 mg oxyCODONE (Roxicodone) immediate release tablet 5 mg 5 mg, Oral, Every 4 hours PRN, Starting on Tue02/11/25 at 1403, Until Tue02/12/25 at 1657, Routine, Recovery(Phase II-Outpatient)/On Unit(Inpatient), moderate pain, severe pain, Severe pain 5-8 pantoprazole (Protonix) EC tablet 40 mg 40 mg, Oral, Daily before breakfast, First dose on Tue02/11/25 at 1500, Until Discontinued, Routine, Recovery(Phase II-Outpatient)/On Unit(Inpatient) Given 02/12/2025 8:35 AM EDT 40 mg Given 02/11/2025 3:02 PM EDT 40 mg polyethylene glycol (Miralax) packet 17 g 17 g, Oral, Daily with breakfast, First dose on Tue02/12/25 at 0800, Until Discontinued, Routine, Recovery(Phase II-Outpatient)/On Unit(Inpatient) Given 02/12/2025 8:36 AM EDT 17 g Povidone-Iodine 5 % swab solution 1 Application Nasal, Once, 1 dose, On Tue02/11/25 at 1000, Routine Given 02/11/2025 9:34 AM EDT 1 Application senna-docusate (Krista-Colace) 8.6-50 MG per tablet 2 tablet 2 tablet, Oral, Nightly, First dose on Tue02/11/25 at 2100, Until Discontinued, Routine, Recovery(Phase II-Outpatient)/On Unit(Inpatient) Given 02/11/2025 9:30 PM EDT 2 tablets traMADol (Ultram) tablet 100 mg 100 mg, Oral, Every 8 hours scheduled, First dose on Tue02/11/25 at 1500, Until Discontinued, Routine, Recovery(Phase II-Outpatient)/On Unit(Inpatient) Given 02/12/2025 1:32 PM EDT 100 mg Given 02/12/2025 5:18 AM EDT 100 mg Given 02/11/2025 9:29 PM EDT 100 mg traMADol (Ultram) tablet 50 mg 50 mg, Oral, Once, 1 dose, On Tue02/11/25 at 1000, Routine, Holding - Preprocedure Given 02/11/2025 10:39 AM EDT 50 mg traMADol (Ultram) tablet 50 mg 50 mg, Oral, Every 12 hours PRN, Starting on Tue02/11/25 at 1403, Until Tue02/12/25 at 1657, Routine, Recovery(Phase II-Outpatient)/On Unit(Inpatient), severe pain, pain score 3-5. use prior to oxycodone or hydromorphone vancomycin in NS (Vancocin) IVPB 1,250 mg 1,250 mg, Intravenous, Once, 1 dose, On Tue02/11/25 at 1000, at 200 mL/hr, STAT New Bag 02/11/2025 9:32 AM EDT 1,250 mg 200 mL/hr documented in this encounter Active and Recently Administered Medications Times are shown in EDT. Scheduled Medication Order 02/10/2025 02/11/2025 02/12/2025 acetaminophen (Tylenol) tablet 1,000 mg (COMPLETED) 1,000 mg, Oral, Once, 1 dose, On Tue02/11/25 at 1000, Routine, Holding - Preprocedure 1039 (Given - Provider: Holli Pruitt, SONI) acetaminophen (Tylenol) tablet 1,000 mg 1,000 mg, Oral, Every 8 hours scheduled, First dose on Tue02/11/25 at 1500, Until Discontinued, Routine, Recovery(Phase II-Outpatient)/On Unit(Inpatient) 1502 (Given - Provider: Zhanna Parker RN)2129 (Given - Provider: Tessa Hendrix) 0518 (Given - Provider: Tessa Hendrix)1332 (Given - Provider: Noni Kirk) aprepitant (Emend) capsule 40 mg (COMPLETED) 40 mg, Oral, Once, 1 dose, On Tue02/11/25 at 1000, Routine, Holding - Preprocedure 1039 (Given - Provider: Holli Pruitt, SONI) aspirin chewable tablet 81 mg 81 mg, Oral, 2 times daily, First dose on Tue02/12/25 at 0900, Until Discontinued, Routine, Recovery(Phase II-Outpatient)/On Unit(Inpatient) 0836 (Given - Provid er: Noni iKrk) calcium-vitamin D 500-200 MG-UNIT per tablet 1 tablet 1 tablet, Oral, 2 times daily with meals, First dose on Tue02/11/25 at 2100, Until Discontinued, Routine, Recovery(Phase II-Outpatient)/On Unit(Inpatient) 2128 (Given - Provider: Tessa Hendrix) 0835 (Given - Provider: Noni Kirk) ceFAZolin (Ancef) injection 2 g (COMPLETED) 2 g, Intravenous, Every 8 hours, 3 doses, First dose on Tue02/11/25 at 1930, Last dose on Tue02/12/25 at 1130, Routine, Recovery(Phase II-Outpatient)/On Unit(Inpatient) 2229 (Given - Provider: Tessa Hendrix - Comment: dose was not available) 0256 (Given - Provider: Tessa Hendrix)1111 (Given - Provider: Noni Kirk) dexamethasone (Decadron) injection 8 mg (COMPLETED) 8 mg, Intravenous, Once, 1 dose, On Tue02/11/25 at 1000, Routine, Holding - Preprocedure 1040 (Given - Provider: Holli Pruitt, SONI) gabapentin (Neurontin) capsule 300 mg (COMPLETED) 300 mg, Oral, Once, 1 dose, On Tue02/11/25 at 1000, Routine, Holding - Preprocedure 1040 (Given - Provider: Holli Pruitt, SONI) ketorolac (Toradol) injection 15 mg (COMPLETED) 15 mg, Intravenous, Once, 1 dose, On Tue02/11/25 at 1000, Routine, Holding - Preprocedure 1041 (Given - Provider: Holli Pruitt, SONI) ketorolac (Toradol) injection 15 mg 15 mg, Intravenous, Every 6 hours scheduled, 8 doses, First dose on Tue02/11/25 at 1800, Last dose on Tue02/13/25 at 1200, Routine, Recovery(Phase II-Outpatient)/On Unit(Inpatient) 1726 (Given - Provider: Zhanna Parker RN)2341 (Given - Provider: Tessa Hendrix) 0519 (Given - Provider: Tessa Hendrix)1111 (Given - Provider: Noni Kirk) lactated Ringer's infusion (COMPLETED) 10 mL/hr, Intravenous, Once, 1 dose, On Tue02/11/25 at 1000, Routine 0934 (New Bag - Provider: Holli Pruitt, RN) oxyCODONE (Roxicodone) immediate release tablet 5 mg (COMPLETED) 5 mg, Oral, Once, 1 dose, On Tue02/11/25 at 1000, Routine, Holding - Preprocedure 1040 (Given - Provider: Holli Pruitt, SONI) pantoprazole (Protonix) EC tablet 40 mg 40 mg, Oral, Daily before breakfast, First dose on Tue02/11/25 at 1500, Until Discontinued, Routine, Recovery(Phase II-Outpatient)/On Unit(Inpatient) 1502 (Given - Provider: Zhanna Parker, SONI) 0835 (Given - Provider: Noni Kirk) polyethylene glycol (Miralax) packet 17 g 17 g, Oral, Daily with breakfast, First dose on Tue02/12/25 at 0800, Until Discontinued, Routine, Recovery(Phase II-Outpatient)/On Unit(Inpatient) 0836 (Given - Provid er: Noni Kirk) Povidone-Iodine 5 % swab solution 1 Application (COMPLETED) Nasal, Once, 1 dose, On Tue02/11/25 at 1000, Routine 0934 (Given - Provider: Holli Pruitt, SONI) senna-docusate (Krista-Colace) 8.6-50 MG per tablet 2 tablet 2 tablet, Oral, Nightly, First dose on Tue02/11/25 at 2100, Until Discontinued, Routine, Recovery(Phase II-Outpatient)/On Unit(Inpatient) 2130 (Given - Provider: Tessa Hendrix) traMADol (Ultram) tablet 100 mg 100 mg, Oral, Every 8 hours scheduled, First dose on Tue02/11/25 at 1500, Until Discontinued, Routine, Recovery(Phase II-Outpatient)/On Unit(Inpatient) 1502 (Given - Provider: Zhanna Parker RN)2129 (Given - Provider: Tessa Hendrix) 0518 (Given - Provider: Tessa Hendrix)1332 (Given - Provider: Noni Kirk) traMADol (Ultram) tablet 50 mg (COMPLETED) 50 mg, Oral, Once, 1 dose, On Tue02/11/25 at 1000, Routine, Holding - Preprocedure 1039 (Given - Provider: Holli Pruitt, SONI) tranexamic acid (Cyklokapron) IVPB 1,000 mg (COMPLETED) 1,000 mg, Intravenous, Once, 1 dose, On Tue02/11/25 at 1000, Routine, Holding - Preprocedure 1150 (Given - Provider: Fortino Zhou CRNA)1238 (Given - Provider: Fortino Zhou CRNA) vancomycin in NS (Vancocin) IVPB 1,250 mg (COMPLETED) 1,250 mg, Intravenous, Once, 1 dose, On Tue02/11/25 at 1000, at 200 mL/hr, STAT 0932 (New Bag - Provider: Holli Pruitt, SONI) Continuous Medication Order 02/10/2025 02/11/2025 02/12/2025 lactated Ringer's infusion 50 mL/hr, Intravenous, Continuous, Starting on Tue02/11/25 at 1500, Until Tue02/12/25 at 1454, Routine 1455 (Continued from OR - Provider: Zhanna Parker, SONI)2341 (New Bag - Provider: Tessa Hendrix) 0500 (Stopped - Provider: Noni Kirk - Comment: Stopped by SONI Zarate) PRN Medication Order 02/10/2025 02/11/2025 02/12/2025 bethanechol (Urecholine) tablet 20 mg 20 mg, Oral, Once as needed, 1 dose, Starting on Tue02/11/25 at 1403, Until Tue02/12/25 at 1657, Routine, Recovery(Phase II-Outpatient)/On Unit(Inpatient), other, post-op urinary retention bisacodyl (Dulcolax) suppository 10 mg 10 mg, Rectal, 2 times daily PRN, Starting on Tue02/11/25 at 1403, Until Tue02/12/25 at 1657, Routine, Recovery(Phase II-Outpatient)/On Unit(Inpatient), constipation, for constipation - use if no bowel movement after giving magnesium hydroxide bupivacaine-EPINEPHrine PF (Marcaine w/EPI) 0.5% -[id number] injection (CANCELED) As needed, Starting on Tue02/11/25 at 1236, Until Tue02/11/25 at 1305, Routine, Intraprocedure 1236 (Given - Provider: Abdelrahman Betancur MD) diphenhydrAMINE (Benadryl) tablet 12.5 mg 12.5 mg, Oral, Every 4 hours PRN, Starting on Tue02/11/25 at 1403, Until Tue02/12/25 at 1657, Routine, Recovery(Phase II-Outpatient)/On Unit(Inpatient), itching, sleep HYDROmorphone (Dilaudid) injection 0.5 mg 0.5 mg, Intravenous, Every 6 hours PRN, Starting on Tue02/11/25 at 1403, Until Tue02/12/25 at 1657, Routine, Recovery(Phase II-Outpatient)/On Unit(Inpatient), severe pain, pain score 9-10 magnesium hydroxide (Milk of Magnesia) 400 MG/5ML suspension 30 mL 30 mL, Oral, 2 times daily PRN, Starting on Tue02/11/25 at 1403, Until Tue02/12/25 at 1657, Routine, Recovery(Phase II-Outpatient)/On Unit(Inpatient), constipation, for constipation - use as first line agent ondansetron (Zofran) injection 4 mg 4 mg, Intravenous, Every 6 hours PRN, Starting on Tue02/11/25 at 1403, Until Tue02/12/25 at 1657, Routine, Recovery(Phase II-Outpatient)/On Unit(Inpatient), nausea, vomiting 1150 (Given - Provid er: Noni Kirk) oxyCODONE (Roxicodone) immediate release tablet 5 mg 5 mg, Oral, Every 4 hours PRN, Starting on Tue02/11/25 at 1403, Until Tue02/12/25 at 1657, Routine, Recovery(Phase II-Outpatient)/On Unit(Inpatient), moderate pain, severe pain, Severe pain 5-8 traMADol (Ultram) tablet 50 mg 50 mg, Oral, Every 12 hours PRN, Starting on Tue02/11/25 at 1403, Until Tue02/12/25 at 1657, Routine, Recovery(Phase II-Outpatient)/On Unit(Inpatient), severe pain, pain score 3-5. use prior to oxycodone or hydromorphone vancomycin (Vancocin) vial for injection (CANCELED) As needed, Starting on Tue02/11/25 at 1219, Until Tue02/11/25 at 1305, Routine, Intraprocedure 1219 (Given - Provider: Abdelrahman Betancur MD) documented in this encounter Additional Health Concerns Active Problems Noted Date Diagnosed Date Autogenerated Problem 01/01/2025 Assessment Noted Time PHQ-9 Depression Total Score: 0 10/30/19 25 12:42 PM EDT A fall risk assessment has been complete d for the patient 12/11/2024 3:00 PM EDT A Body Mass Index follow-up plan has been documented for the patient 02/12/2025 1:29 PM EDT documented as of this encounter Care Teams Paint Coating Machine Operator Relationship Specialty Start Date End Date Wan Santoro MD [address] [place] [address] PCP - General 01/20/21 Dalton Hurley MD [address] [facility] [id number] [place] [address] Consulting Physician Radiation Therapy 03/27/21 Geovanny Dominguez MD [address] [facility] [address] [place] [address] Surgeon Neurosurgery 05/21/21 Rudolph Dillard MD [address] [address] Consulting Physician Medical Oncology 09/22/21 Abdiel Vargas, MILK AND CRE[employer] GRADER [address] [facility] [address] [place] [address] Nurse Practitioner Internal Medicine 04/09/22 Rodney Maria MD [address] [facility] [address] [place] [address] Referring Physician 11/14/24 Brian Flores MD [address] [place] [address] Consulting Physician Cardiology 11/14/24 documented as of this encounter
--- OUTSIDE RECORDS SUMMARY | 2025-02-11 11:28 | XMS_ITS | Encounter Summary ---
Author Organization [facility] Address [address] [place] [address] Care Team Providers Care Ribbon Weaver Name Role Phone Wan Santoro MD Primary Care Provider [phone] Dalton Hurley MD Unavailable [phone] Geovanny Dominguez MD Unavailable [phone] Rudolph Dillard MD Unavailable [phone] Abdiel Vargas APRN Unavailable [phone] Rodney Maria MD Unavailable [phone] Brian Flores MD Unavailable [phone] Reason for Visit * Auth/Cert (Routine) Specialty Diagnoses / Procedures Referred By [place] Referred To Contact Diagnoses Arthritis of left hip Arthritis of left hip [M16.12] Procedures WA TOTAL HIP ARTHROPLASTY ARTHROPLASTY, HIP, TOTAL, ANTERIOR APPROACH Abdelrahman Betancur MD [address] [facility] [place] [address] [place] [address] Phone: tel: fax: [facility] Operating Room [address] [place] [address] Phone: tel: Referral ID Status Reason Start Date Expiration Date Visits Re quested Visits Authorized [id number] 1 1 Encounter Details Date Type Department Care Team (Late st Contact Info) Description 02/11/2025 11:28 AM EDT Anesthesia Event [facility] Operating Room [address] [place] [address] Felipe Gómez MD [address] [place] [address] Fortino Zhou CRNA [address] [place] [address] Anesthesia Record Procedure Summary Procedure Name Responsible [...] acknowledgement of understanding. 1314 An Stop Meds Name Total fentaNYL (Sublimaze) injection 50 mcg/mL 100 mcg lidocaine PF (Xylocaine-MPF) 2% 80 mg propofol (Diprivan) injection 10 mg/mL 1 20 mg rocuronium (ZeMuron) injection 10 mg/mL 70 mg ePHEDrine injection prefilled syringe 5 mg/mL 30 mg phenylephrine (Diogo-Synephrine) prefilled syringe 1 mg/10 mL 700 mcg ondansetron (Zofran) injection 2 mg/mL 4 mg sugammadex (Bridion) injection 100 mg/mL 200 mg ceFAZolin (Ancef) vial 1 g 2 g tranexamic acid (Cyklokapron) IVPB 1,000 mg 2,000 mg lactated Ringer's infusion 1,500 mL * Agents Name O2 * Blood No blood administrations on file. Lines, Drains, and Airways Type Details Placement Removal Wound 02/11/25; 1243; Surgical; Open Surg; Leg; Anterior, Left, Proximal, Upper 02/11/25 1243 by Tobin Edmondson Peripheral IV Placement Date: 02/11/25; Placement Time: 927; Catheter Size: 20 G; Orientation: Posterior, Right; Location: Forearm; Insertion Attempts: 1; Patient Tolerance: Tolerated well; Removal Date: 02/12/25; Removal Time: 142; Removal Reason: Discharge 02/11/25927 by Holli Pruitt RN 02/12/25 142 by Noni Kirk ETT Placement Date: 02/11/25; [...] Date of Assessment Author No Risk Indicated 02/11/2025 2:20 PM EDT Zhanna Cobb RN * Question Answer Date of Assessment Author 1. Wish to be (Past 1 Month) No 02/11/2025 2:20 PM EDT Zhanna Parker RN 2. Non-Specific Active Suici rahel Thoughts (Past 1 Month) No 02/11/2025 2:20 PM EDT Gabino Parker RN 6. Suicidal Behavior (Lifetime) No 2:20 PM EDT Zhanna Parker RN documented as of this encounter Miscellaneous Notes * Anesthesia Postprocedure Evaluation - Fortino Zhou CRNA - 02/11/2025 1:14 PM EDT Patient: Priya Lynn Anesthesia Type: general [facility] Regional Anesthesia Exemption: Not attempted Vitals Value Taken Time BP 128/52 02/11/25 13:10 Temp 97.7 02/11/25 13:14 Pulse 79 02/11/25 13:13 Resp 18 02/11/25 13:14 SpO2 100 % 02/11/25 13:13 Vitals shown include unfiled device data. Anesthesia Post Evaluation Patient location during evaluation: PACU Patient participation: complete - patient cannot participate Level of consciousness: responsive to physical stimuli and sedated Pain management: adequate (pain score 0-3) Airway patency: natural airway Cardiovascular status: acceptable and hemodynamically stable Respiratory status: acceptable, blow-by oxygen, nonlabored ventilation, spontaneous ventilation, oral airway and unassisted Hydration status: acceptable Nausea/Vomiting: No No notable events documented. * Anesthesia Procedure Notes - Felipe Gómez MD - 02/11/2025 11:41 AM EDT Associated Order(s): Airway Airway Date/Time: 02/11/2025 11:38 AM Reason: elective Airway not difficult General Information and Staff Patient location during procedure: OR Anesthesiologist: Felipe Gómez MD Performed: Anesthesiologist Patient Condition Indications for airway management: anesthesia Patient position: sniffing Final Airway Details Final airway type: endotracheal airway Successful airway: ETT Cuffed: yes Successful intubation technique: direct laryngoscopy Adjuncts used in placement: intubating stylet and cricoid pressure Endotracheal tube insertion site: oral Blade: Ashly ETT size (mm): 7.0 Cormack-Lehane Classification: grade I - full view of glottis Placement verified by: chest auscultation and capnometry Measured from: lips ETT to lips (cm): 21 Additional Comments Atraumatic. No change to dentition. * Anesthesia Preprocedure Evaluation - Felipe Gómez MD - 02/11/2025 10:04 AM EDT Images from the original note were not included. Anesthesiologist: Felipe Gómez MD MACHINE TOOL ELECTRICIAN: Fortino Zhou CRNA Patient: Priya Lynn HPI Priya Lynn is a 69 y.o. female with body mass index is 30.21 kg/m??. who presents with Arthritis of left hip, now for ARTHROPLASTY, HIP, TOTAL, ANTERIOR APPROACH (Left) Procedure Information Date/Time: 02/11/25 1130 Procedure: ARTHROPLASTY, HIP, TOTAL, ANTERIOR APPROACH (Left: Hip) Location: [address] [place] [address] OR Surgeons: Abdelrahman Betancur MD 69 yo F with hx of aortic stenosis s/p TAVR, HTN, left lung adenoCa c/b brain met s/p chemo and GammaKnife, and arthritis presents for left hip arthroplasty. Relevant Problems Cardio (+) Essential hypertension Pulmonary (+) Adenocarcinoma of left lung (CMS/HCC) Other (+) Arthritis (+) Arthritis of left hip (+) Arthritis of right hip ALLERGIES Allergies[1] NPO STATUS Date of Last Liquid: 02/11/25 Time of Last Liquid: 0500 Date of Last Solid: 02/10/25 Time of Last Solid: 2229 Last Intake Type: Clear fluids Time of Last Void: 913 Past Medical History[2] ROS Anesthesia: Date of last anesthetic: 12/2020 [...] CAD, CHF, dyspnea, dysrhythmias, hyperlipidemia, pacemaker, past LA or syncope. hypertension: Exercise tolerance is 1 flight of stairs. Does not have chest pain. Cardio additional comments: Uses walker due to severe hip pain/osteoarthritis. Drives, performs grocery shopping using shoppingcart for support. Can lay flat. Denies any active current cardiac complaints. ECHO- 10/04/24: LVEF 55%, AV area 0.8cm, peak velocity 4.3, mean gradient 37mmhg, max gradient 77mg. TTE 12/27/24: ?? Aortic Valve: There is a transcatheter [...] increased in setting of high cardiac output. Respiratory: lung cancer (diagnosed 2020 s/p Gamma [...] diabetes mellitus. Does not have thyroid disorder. AIRWAY HISTORY Airway Detailed Review Displaying the 20 most recent records Date Difficult Airway Blade Size ETT Size C-L Class Final Type Intubation Method 12/27/24 No MEDICATIONS Outpatient Current Outpatient Medications Medication Instructions amLODIPine (Norvasc) 5 MG tablet 1 tablet, Daily aspirin 81 mg, Daily lisinopril-hydroCHLOROthiazide 20-12.5 MG tablet 2 tablets, Daily meloxicam (MOBIC) 15 mg, Daily Osimertinib Mesylate 80 MG tablet 1 tablet, Oral, Daily potassium chloride CR (Klor-Con) 10 MEQ ER tablet 10 mEq, Daily Scheduled Current Scheduled Medications[3] PRNs Current PRN Medications[4] SURGICAL HX: Surgical History[5] SOCIAL HX: Social History[6] OBJECTIVE DATA LABS Lab Results Component Value Date WBC 8.36 12/28/2024 HGB 10.0 (L) 12/28/2024 HCT 30.3 (L) 12/28/2024 MCV 92 12/28/2024 PLT 122 (L) 12/28/2024 Lab Results Component Value Date CALCIUM 8.9 12/28/2024 BUN 20 12/28/2024 CREATININE 0.83 12/28/2024 BCR 24 12/28/2024 NA 140 12/28/2024 K 4.1 12/28/2024 CL 106 12/28/2024 CO2 23 12/28/2024 Type and Screen No results found for: ABO Lab Results Component Value Date HGBA1C 4.9 09/28/2024 Lab Results Component Value Date GLUCOSE 99 12/28/2024 ABG No results found for: PHART , DWB9PAV , PO2ART , SO2ART , BEART , RDQ1EFE , HCTART , SODIUMART , POTASSIUMART , POCTCL , POCGLU , IONCALART , LACTATE No results found for: PH , PCO2 , PO2 , T4ZRAOBN , BASEEXC , HCTSYR , KSYR , CLSYR , GLUSYR , CAION , LACTATE ECHO Echo, Adult Transthoracic (TTE) Limited Result Date: [...] is no recent study available for direct abxo-bg-zjnx comparison. PFTs FEV1 PRE (L) Date/Time Value 02/05/2021 1127 2.61 FEV1 PRED (no units) Date/Time Value 02/05/2021 1127 2.24 OSI3AOV (L) Date/Time Value 02/05/2021 1127 3.21 FVC PRED (no units) Date/Time Value 02/05/2021 1127 2.86 BP Readings from Last 5 Encounters: 02/11/25 (!) 145/59 12/28/24 129/73 12/11/24 138/84 11/19/24 124/81 10/29/24 (!) 144/90 Physical Exam Airway Mallampati: II Mouth opening: normal TM distance: >3 FB Neck ROM: full Cardiovascular Rhythm: regular Rate: normal Dental - normal exam Pulmonary Breath sounds clear to auscultation Neurological Oriented: normal to time, normal to place and normal to person and oriented to person, place and time Skin Musculoskeletal Extremities Anesthesia Plan ASA 3 Plan was reviewed with: MACHINE TOOL ELECTRICIAN Anesthesia technique(s) discussed with the patient/family: general Anesthesia plan agreed upon was: general Anesthetic plan and risks discussed with patient. Anesthesia Evaluation [1] No Known Allergies [2] Past Medical History: Diagnosis Date Arthritis Cancer (CMS/HCC) uterine, ovarian, with brain mets High blood pressure Osteoarthritis [3] acetaminophen, 1,000 mg, Oral, Once aprepitant, 40 mg, Oral, Once dexamethasone, 8 mg, Intravenous, Once gabapentin, 300 mg, Oral, Once ketorolac, 15 mg, Intravenous, Once oxyCODONE, 5 mg, Oral, Once scopolamine, 1 patch, Transdermal, Once traMADol, 50 mg, Oral, Once tranexamic acid, 1,000 mg, Intravenous, Once tranexamic acid, 1,000 mg, Intravenous, Once vancomycin, 1,250 mg, Intravenous, Once [4] PRN medications: lidocaine, Insert peripheral IV AND Saline lock IV AND sodium chlorideAND sodium chloride, Insert peripheral IV AND Saline lock IV AND sodium chloride AND sodium chloride [5] Past Surgical History: Procedure Laterality Date BRONCHOSCOPY RIGID / FLEXIBLE N/A CARDIAC VALVE SURGERY 12/27/2024 TAVR CHOLECYSTECTOMY N/A COLONOSCOPY 08/02/2023 GAMMA KNIFE 2020 HYSTERECTOMY N/A LUNG BIOPSY [6] Social History Tobacco Use Smoking status: Never Smokeless tobacco: Never Vaping Use Vaping status: Never Used Substance Use Topics Alcohol use: Never Drug use: Never documented in this encounter Plan of Treatment Upcoming Encounters Date Type Department Care Team (Late st Contact Info) Description 03/06/2025 10:00 AM EDT Appointment Medical Office Building Cardiac Diagnostic Testing Medical Office Building Echo Lab [address] [facility] [place] [address] 03/06/2025 11:30 AM EDT Office Visit [facility] [place] [address] [facility], [address] [place] [address] Dian Yancey PA [address] [place] [address] 03/26/2025 11:10 AM EDT Office Visit Medical Office Building Surgery [facility] [address] [facility], [address] [place] [address] Abdelrahman Betancur MD [address] [facility] [place] [address] [place] [address] 04/02/2025 9:40 AM EDT Appointment [facility] [address] [place] [address] 04/02/2025 10:45 AM EDT Appointment [facility] [address] [place] [address] 04/02/2025 1:15 PM EDT Clinical Support [facility] [address] [facility] [place] [address] 04/02/2025 1:40 PM EDT Office Visit [facility] [address] [facility] [place] [address] Rudolph Dillard MD [address] [address] 04/08/2025 7:30 AM EDT Hospital Encounter [facility] Operating Room [address] [place] [phone] Abdelrahman Betancur MD [address] [facility] [place] [address] [place] [address] 04/08/2025 7:30 AM EDT - 04/08/2025 10:15 AM EDT Surgery [facility] Operating Room [address] [place] [phone] Abdelrahman Betancur MD [address] [facility] [place] [address] [place] [address] ARTHROPLASTY, HIP, TOTAL, ANTERIOR APPROACH [29434 (CPT )] 04/23/2025 11:00 AM EDT Office Visit Medical Office Building [facility] [address], [address] [place] [phone] Renetta Stoner PA [address] [place] [address] 05/21/2025 11:10 AM EST Office Visit Medical Office Building [facility] [address], [address] [place] [address] Abdelrahman Betancur MD [address] [place] [phone] 01/08/2026 2:00 PM EDT Appointment Medical Office Building Cardiac Diagnostic Testing Medical Office Building Echo Lab [address], [address] [place] [phone] 01/08/2026 3:00 PM EDT Office Visit [facility] [address], [address] [place] [address] Dian Yancey PA [address] [place] [address] Scheduled Procedures Name Priority Associated Diagnoses Date/Ti me ARTHROPLASTY, HIP, TOTAL, ANTERIOR APPROACH Arthritis of right hip 04/08/2025 7:30 AM EDT documented as of this encounter Goals Goal Patient Goal Type Associated Problems Recent Progress Patient-Stated? Author Autogenerat ed Goal Care Plan Autogenerated Problem No Latisha Sun documented as of this encounter Procedures Procedure Name Priority Date/Time Associated Diagnosis Comments PB ANESTHESIA PLACEHOLDER Routine 02/11/2025 11:38 AM EDT WA AN ELECTIVE ENDOTRACHEAL AIRWAY Routine 02/11/2025 11:38 AM EDT documented in this encounter Results * WA AN ELECTIVE ENDOTRACHEAL AIRWAY, PB ANESTHESIA PLACEHOLDER (02/11/2025 11:38 AM EDT) Narrative Felipe Gómez MD - 02/11/2025 11:38 AM EDT Felipe Gómez MD 02/11/2025 11:41 AM Airway Date/Time: 02/11/2025 11:38 AM Reason: elective Airway not difficult General Information and Staff Patient location during procedure: OR Anesthesiologist: Felipe Gómez MD Performed: Anesthesiologist Patient Condition Indications for airway management: anesthesia Patient position: sniffing Final Airway Details Final airway type: endotracheal airway Successful airway: ETT Cuffed: yes Successful intubation technique: direct laryngoscopy Adjuncts used in placement: intubating stylet and cricoid pressure Endotracheal tube insertion site: oral Blade: Ashly ETT size (mm): 7.0 Cormack-Lehane Classification: grade I - full view of glottis Placement verified by: chest auscultation and capnometry Measured from: lips ETT to lips (cm): 21 Additional Comments Atraumatic. No change to dentition. Felipe Gómez MD ANESTHESIA ORDERABLES Final Re sult documented in this encounter Visit Diagnoses Not on filedocumented in this encounter Administered Medications Inactive Administered Medications - up to 3 most recent administrations Medication Order MAR Action Action Date Dose Rate Site ceFAZolin (Ancef) injection Intravenous, As needed, Starting on Tue02/11/25 at 1141, Until Tue02/11/25 at 1314, Routine, Anesthesia Intraprocedure Given 02/11/2025 11:41 AM EDT 2 g ePHEDrine Sulfate (Akovaz) injection Intravenous, As needed, Starting on Tue02/11/25 at 1220, Until Tue02/11/25 at 1314, Routine, Anesthesia Intraprocedure Given 02/11/2025 12:50 PM EDT 10 mg Given 02/11/2025 12:38 PM EDT 10 mg Given 02/11/2025 12:20 PM EDT 10 mg fentaNYL (Sublimaze) injection Intravenous, As needed, Starting on Tue02/11/25 at 1134, Until Tue02/11/25 at 1314, Routine, Anesthesia Intraprocedure Given 02/11/2025 11:34 AM EDT 10 0 mcg lactated Ringer's infusion Intravenous, Continuous PRN, Starting on Tue02/11/25 at 1128, Until Tue02/11/25 at 1314, Routine New Bag 02/11/2025 12:25 PM EDT New Bag 02/11/2025 11:28 AM EDT lidocaine PF (Xylocaine) 2 % injection Intravenous, As needed, Starting on Tue02/11/25 at 1134, Until Tue02/11/25 at 1314, Routine, Anesthesia Intraprocedure Given 02/11/2025 11:34 AM EDT 80 mg ondansetron (Zofran) injection Intravenous, As needed, Starting on Tue02/11/25 at 1246, Until Tue02/11/25 at 1314, Routine, Anesthesia Intraprocedure Given 02/11/2025 12:46 PM EDT 4 mg phenylephrine in NS (Diogo-Synephrine) 100 mcg/mL prefilled syringe Intravenous, As needed, Starting on Tue02/11/25 at 1220, Until Tue02/11/25 at 1314, Routine, Anesthesia Intraprocedure Given 02/11/2025 12:50 PM EDT 100 mcg Given 02/11/2025 12:44 PM EDT 100 mcg Given 02/11/2025 12:40 PM EDT 100 mcg propofol (Diprivan) injection Intravenous, As needed, Starting on Tue02/11/25 at 1134, Until Tue02/11/25 at 1314, Routine, Anesthesia Intraprocedure Given 02/11/2025 11:34 AM EDT 120 mg rocuronium (ZeMuron) injection Intravenous, As needed, Starting on Tue02/11/25 at 1134, Until Tue02/11/25 at 1314, Routine, Anesthesia Intraprocedure Given 02/11/2025 12:15 PM EDT 10 mg Given 02/11/2025 11:34 AM EDT 60 mg sugammadex (Bridion) 100 MG/ML injection Intravenous, As needed, Starting on Tue02/11/25 at 1254, Until Tue02/11/25 at 1314, Routine, Anesthesia Intraprocedure Given 02/11/2025 12:54 PM EDT 20 0 mg tranexamic acid (Cyklokapron) IVPB 1,000 mg 1,000 mg, Intravenous, Once, 1 dose, On 02/11/25 at 1000, Routine, Holding - Preprocedure Given 02/11/2025 12:38 PM EDT 1,000 mg Given 02/11/2025 11:50 AM EDT 1,000 mg documented in this encounter Additional Health Concerns [...] documented as of this encounter Care Teams Ribbon Weaver Relationship Specialty Start Date End Date Wan Santoro MD [facility] [address] [place] [address] PCP - General 01/20/21 Dalton Hurley MD [address] [facility] [address] [place] [phone] Consulting Physician Radiation Therapy 03/27/21 Geovanny Dominguez MD [address] [facility] [address] [place] [phone] Surgeon Neurosurgery 05/21/21 Rudolph Dillard MD [address] [phone] Consulting Physician Medical Oncology 09/22/21 Abdiel Vargas, ELECTRICAL DRAFTER [address] [facility] [address] [place] [phone] Nurse Practitioner Internal Medicine 04/09/22 Rodney Maria MD [facility] [address] [address] Referring Physician 11/14/24 Brian Flores MD [address] [place] [phone] Consulting Physician Cardiology 11/14/24 documented as of this encounter
--- OUTSIDE RECORDS SUMMARY | 2025-02-11 11:30 | XMS_ITS | Encounter Summary ---
Author Organization [facility] Address [address] [place] [address] Care Team Providers Care Advertising Rep Name Role Phone Wan Santoro MD Primary Care Provider [phone] Dalton Hurley MD Unavailable [phone] Geovanny Dominguez MD Unavailable [phone] Rudolph Dillard MD Unavailable [phone] Abdiel Vargas APRN Unavailable [phone] Rodney Maria MD Unavailable [phone] Brian Flores MD Unavailable [phone] Reason for Visit * Auth/Cert (Routine) Specialty Diagnoses / Procedures Referred By [place] Referred To Contact Diagnoses Arthritis of left hip Arthritis of left hip [M16.12] Procedures [place] TOTAL HIP ARTHROPLASTY ARTHROPLASTY, HIP, TOTAL, ANTERIOR APPROACH Abdelrahman Betancur MD [address] [facility] [address] [place] [address] Phone: tel: fax: [facility] S Operating Room [address] [place] [address] Phone: tel: Referral ID Status Reason Start Date Expiration Date Visits Re quested Visits Authorized [id number] 1 1 Encounter Details Date Type Department Care Team (Late st Contact Info) Description 02/11/2025 11:30 AM EDT - 02/11/2025 2:05 PM EDT Surgery [facility] S Operating Room [address] [place] [address] Abdelrahman Betancur MD [address] [place] [address] ARTHROPLASTY, HIP, TOTAL, ANTERIOR APPROACH [03043 (CPT )] Surgery Details Date/Time Status Location OR Service Patient Class Case Class Case Type Trauma Case? 02/11/2025 11:30 AM Posted [facility] OR 5SOR 02 Orthopedic Surgery Extended Recovery E-Electi ve Panel 1 Procedure LRB Anes Op Region Wound Class Comments ARTHROPLASTY, HIP, TOTAL, AN TERIOR APPROACH Left Choice Hip Class I/ Clean Surgeon Surgeon Role Service Panel Kelvin Everett MD Resident - Assisting 1 Abdelrahman Betancur MD Primary Orthopedic Surgery 1 Brian Mayo MD Resident - [facility]isting [facility] documented in this encounter Social History [...] Sign Reading Time Taken Comments Blood Pressure 113/46 02/11/2025 2:00 PM EDT Pulse 82 02/11/2025 2:00 PM EDT Temperature 36.4 C (97.5 F) 02/11/2025 2:00 PM EDT Respiratory Rate 12 02/11/2025 1:08 PM EDT Oxygen Saturation 96% 02/11/2025 2:00 PM EDT Inhaled Oxygen Concentration - - Weight 79.8 kg (176 lb) 02/11/2025 9:03 AM EDT Height 162.6 cm (5' 4 ) 02/11/2025 9:19 AM EDT Body Mass Index 30.21 02/11/2025 9:03 AM EDT documented in this encounter Functional Status * Calculated C-SSRS Risk Score (Lifetime/Recent) Answer Date of Assessment Author No Risk Indicated 02/11/2025 9:02 AM EDT Holli Pruitt RN * Question Answer Date of Assessment Author 1. Wish to be (Past 1 Month) No 02/11/2025 9:02 AM EDT Holli Pruitt RN 2. Non-Specific Active Suici rahel Thoughts (Past 1 Month) No 02/11/2025 9:02 AM EDT Negrito Pruitt RN 6. Suicidal Behavior (Lifetime) No 9:02 AM EDT Holli Pruitt RN documented as of this encounter Discharge [...] Dulcolax Suppository over the counter as directed. Ifstill no bowel movement at that time your [...] PCP name and Address: Wan Santoro MD [address] [place] [address] [address] / [place] [id number] Referring provider name and address: No referring provider defined for this encounter. Chief Concern, Brief History of Present Illness, and Hospital Course Patient [facility] on 02[facility]25 for their scheduled surgery. Patient [...] Your Medications These medications were sent to [facility] - [address] [address] acetaminophen 500 MG tablet aspirin 81 MG [...] [facility] I 04/02/2025 1:15 PM [place] [facility] [place] 04/02/2025 1:40 PM Rudolph Dillard MD [facility] [place] 04/23/2025 11:00 AM Renetta Stoner PA ORTHGSMOB [facility] 05/21/2025 11:10 AM Abdelrahman Betancru MD ORTHGSMOB [facility] 01/08/2026 2:00 PM [...] discharge. Eric Luque MD PGY-1, Orthopaedic Surgery [facility] Cosigned by Abdelrahman Betancur MD at [...] EDT Physical Therapy Treatment Patient Name: Priya Lynn Today's Date: 02/12/2025 PT Discharge Recommendations: Home with assistance, Outpatient PT Equipment Recommended: Rolling walker Subjective Patient reports she was able to get dressed by herself this morning. Hopeful to return home today. Participants in Care Family/Caregiver Present: Yes Family/Caregiver: Other (Specify) (sister) Escort Service Attendant: Not Applicable Presentation Oxygen Therapy: None (Room [...] Transfer Exam: Sit to stand Level of [place]: Stand-by assist Physical/Nonphysical Assist: Verbal Cues, Nonverbal cues (demo/gestures) Assistive Device: Walker, rolling Transfer Exam: Stand to Sit Level of [place]: Stand-by assist Physical/Nonphysical Assist: Verbal Cues, Nonverbal [...] 1x 10 with cues for proper technique. [employer] Access Code: [email or web address] Assessment Patient tolerated today's activities well with [...] from the original note were not included. 90280 After Hip Replacement: Using Your Walker After [...] walker. Last Reviewed Date: 2024 00:00:00 ?? 6500-4689 [employer]. All rights reserved. This information is not intended as a substitute for professional medical care. Always follow your healthcare professional's instructions. * Denise OnFHIR - Leonor Bella RN - 02/12/2025 11:44 AM EDT Images from the original note were not included. 60367 Using an Incentive Spirometer An incentive spirometer [...] rate Last Reviewed Date: 2024 00:00:00 ?? 4377-1369 [employer]. All rights reserved. This information is not intended as a substitute for professional medical care. Always follow your healthcare professional's instructions. * Denise De LeonFHREAL - Leonor Bella RN - 02/12/2025 11:44 AM EDT Images from the original note were not included. 04655 Preventing Deep Vein Thrombosis After Surgery In [...] blood clots. Move your feet in a [place] or up and down. Do this 10 [...] bleeding. Last Reviewed Date: 2024 00:00:00 ?? 9024-3209 [employer]. All rights reserved. This information is not intended as a substitute for professional medical care. Always follow your healthcare professional's instructions. * Denise Duarte - Leonor Bella RN - 02/12/2025 11:44 AM EDT Images from the original note were not included. 84170 Preventing a Surgical Site Infection A risk [...] of infection. ? Controlled body temperature. A moyfk-cure-khbepo temperature during or after surgery prevents oxygen [...] and water or with an alcohol-based hand tattooer before and after caring for you. Don?t [...] away. Last Reviewed Date: 2024 00:00:00 ?? 9680-4153 [employer]. All rights reserved. This information is not [...] medicines unless your doctor approves. This includes xsjf-rqc-fwzjkvk medicines like aspirin, ibuprofen and Tylenol. ? [...] a nutritional supplement such as Boost or [place] Instant Breakfast until your appetite returns to [...] surgery. If you have problems sleeping, take aryf-jzv-bppghef diphenhydramine (Benadryl) or melatonin. ? If you [...] prescription refill before your next appointment, call [phone]. Call 3 business days before you run out of medicine. ? To check joint stability over time, you may have X-rays every five years. When should I call the doctor? Call 381 right away if you have any of [...] up in ~ 2 weeks Corey Ordonez [facility] Secure Chat [1] Current Facility-Administered Medications Medication Dose Route Frequency Provider Last Rate Last Admin acetaminophen (Tylenol) tablet 1,000 mg 1,000 mg Oral q8h JOSEFA Scott Luque MD 1,000 mg at 02/12/25 0518 aspirin [...] Nightly Scott Luque MD 2 tablet at 02/11/250 traMADol (Ultram) tablet 100 mg 100 mg Oral q8h JOSEFA Scott Luque MD 100 mg at 02/12/25 0518 traMADol (Ultram) tablet 50 mg 50 mg Oral q12h PRN Soctt Luque MD * Progress Notes - Aide Carter RN - 02/12/2025 9:22 AM EDT Case Management Adult Progress Note Priya Lynn 69 y.o. female CSN: [id number] Admission: 02/11/2025 7:40 AM Primary Problem: Arthritis of left hip RW to be delivered to bedside today by [facility]. Aide Carter RN * Progress Notes - [...] PT Kelvin Everett MD Orthopedic Surgery PGY-2 [facility] Personal Pager: [phone] Orthopaedic Trauma Service Pager: [phone] Orthopaedic Recon/Spine/Foot and Ankle Service Pager: [phone] Cosigned by Abdelrahman Betancur MD at 02/12/2025 [...] Review/Management: medications reviewed * Progress Notes - Jhony Manriquezlaureen Baptiste - 02/11/2025 4:15 PM EDT Physical Therapy [...] a past medical history of Arthritis, Cancer (CMS/LTAC, [facility]), High blood pressure, and Osteoarthritis. Past Surgical [...] Yes Family/Caregiver: Other (Specify) (brother, sister, friend) Escort Service Attendant: Not Applicable Presentation Oxygen Therapy: None (Room [...] Mobility: Ambulatory- household only (will go to [employer], otherwise stays around home) Mobility [place]: Independent gait with device History of Falls: [...] Mobility Bed Mobility Exam: Scooting/Bridging Level of [place]: Minimum assist (75% patient's effort) (to EOB) Physical/Nonphysical Assist: Verbal Cues Assistive Device: Bed rails Bed Mobility Exam: Supine to Sit Level of [place]: Contact guard Physical/Nonphysical Assist: Verbal Cues, Nonverbal cues (demo/gestures) Assistive Device: Bed rails Transfers Transfer Exam: Sit to stand Level of [place]: Contact guard Physical/Nonphysical Assist: Verbal Cues, Nonverbal cues (demo/gestures) Assistive Device: Walker, rolling Transfer Exam: Stand to Sit Level of [place]: Contact guard Physical/Nonphysical Assist: Verbal Cues, Nonverbal [...] swelling. Standardized Assessments Standardized Assessments Standardized Assessments: [facility] 6-Clicks Mobility Assessment AMPA 6-Clicks Mobility Assessment [...] 3-5 steps with a railing?: A little [facility] 6-Clicks Mobility Assessment Total : 18 No [...] AM EDT Operative Note Date: 02/11/25 Location: [facility] OR Name: Priya Lynn, : 1955, SURGEON: Abdelrahman Betancur M.D. AWARD MACHINE OPERATOR #1: Brian Mayo MD as there was no qualified resident available AWARD MACHINE OPERATOR #2: Luis Manuel Everett MD [...] loosening, osteolysis, DVT, continued pain, iatrogenic fracture, ID, stroke, and . The patient completed preoperative [...] MD who has operative credentials at the [facility]. His assistance was needed for exposure, retraction, implantation and closure of the wound. I was present for the entire procedure. Submitted by: Abdelrahman Betancur MD - 02/11/2025 Hip Approach: Direct anterior AJRR Anticipated Discharge or exclusion: Anticipate discharge home. * Consults - Jackie Lopes PA - 02/11/2025 11:02 AM EDTAssociated Order(s): Inpatient consult to Horace Omalley Inpatient consult to Horace Robbins Najda Consult performed by: Jackie Lopes PA Consult ordered by: Abdelrahman Betancur MD Reason For Consult: medical co-management Requested Service: ortho reconstruction Requested Date/Time: 02/11/2025 5510 HISTORY: History Of Present Illness/Chief Complaint: Priya [...] Never Drug use: Never Lives independently in [facility] Mobility assist device: walker Allergies No [...] Abnormal Ventricular Rate 85 Atrial Rate 85 [place] Interval 150 QRSD Interval 90 QT Interval 386 QTC Interval 459 P [place] -1 R [place] -36 T Wave [place] 20 Diagnosis Normal sinus rhythm Diagnosis Left [...] is no recent study available for direct lanr-bd-ofij comparison. ASSESSMENT AND PLAN: Priya Lynn is [...] Arthroplasty Kelvin Everett MD Orthopedic Surgery PGY-2 [facility] Personal Pager: [phone] Orthopaedic Trauma Service Pager: [phone] Orthopaedic Recon/Spine/Foot and Ankle Service Pager: [phone] [1] Family History Problem Relation Name Age [...] Building Echo Lab [address] [facility], [address] [place] [address] 03/06/2025 11:30 AM EDT Office Visit [facility] [place] [address] [facility], [address] [place] [address] Dian Yancey PA [address] [place] [address] 03/26/2025 11:10 AM EDT Office Visit Medical Office Building Surgery [facility] [address] [facility], [address] [place] [address] Abdelrahman Betancur MD [address] [place] [address] 04/02/2025 9:40 AM EDT Appointment [facility] [address] [place] [address] 04/02/2025 10:45 AM EDT Appointment [facility] [address] [place] [address] 04/02/2025 1:15 PM EDT Clinical Support [facility] [address] [facility], 2nd [place] [address] 04/02/2025 1:40 PM EDT Office Visit [facility] [address] [facility], [address] [place] [address] Rudolph Dillard MD [address] [address] 04/08/2025 7:30 AM EDT Hospital Encounter [facility] S Operating Room [address] [place] [address] Abdelrahman Betancur MD [address] [place] [address] 04/08/2025 7:30 AM EDT - 04/08/2025 10:15 AM EDT Surgery [facility] Operating Room [address] [place] [address] Abdelrahman Betancur MD [address] [place] [address] ARTHROPLASTY, HIP, TOTAL, ANTERIOR APPROACH [59173 (CPT )] 04/23/2025 11:00 AM EDT Office Visit Medical Office Building Surgery Sp[facility] [address], [address] [place] [address] Renetta Stoner PA [address] [place] [phone] 05/21/2025 11:10 AM EST Office Visit Medical Office Building Surgery Sp[facility] [address], [address] [place] [address] Abdelrahman Betancur MD [address] [place] [address] 01/08/2026 2:00 PM EDT Appointment Medical Office Building Cardiac Diagnostic Testing Medical Office Building Echo Lab [address] [facility], [address] [place] [phone] 01/08/2026 3:00 PM EDT Office Visit [facility] [place] [address], [address] [place] [phone] Dian Yancey PA [address] [place] [address] Scheduled Procedures Name Priority Associated [...] 12:37 PM EDT Arthritis of left hip [place] TOTAL HIP ARTHROPLASTY 02/11/2025 11:13 AM EDT Arthritis of left hip documented in this encounter Results * (ABNORMAL) CBC W/O Differential (02/12/2025 3:48 AM EDT) WBC Count 13.21(H) 3.70 - 10.30 10*3/uL LAB HEMATOLOGY METHOD 02/12/2025 3:54 AM EDT [facility] RBC Count 2.80(L) 3.90 - 5.20 10*6/uL LAB HEMATOLOGY METHOD 02/12/2025 3:54 AM EDT [facility] HGB 8.5(L) 11.2 - 15.7 g/dL LAB HEMATOLOGY METHOD 02/12/2025 3:54 AM EDT [facility] HCT 25.4(L) 34.0 - 45.0 % LAB HEMATOLOGY METHOD 02/12/2025 3:54 AM EDT [facility] Platelet Count 133(L) 155 - 369 10*3/uL LAB HEMATOLOGY METHOD 02/12/2025 3:54 AM EDT [facility] MCV 91 79 - 98 fL LAB HEMATOLOGY METHOD 02/12/2025 3:54 AM EDT [facility] MCH 30.4 26.0 - 32.0 pg LAB HEMATOLOGY METHOD 02/12/2025 3:54 AM EDT [facility] MCHC 33.5 30.7 - 35.5 g/dL LAB HEMATOLOGY METHOD 02/12/2025 3:54 AM EDT [facility] RDW 13.1 11.5 - 14.5 % LAB HEMATOLOGY METHOD 02/12/2025 3:54 AM EDT [facility] MPV 10.2 8.8 - 12.5 fL LAB HEMATOLOGY METHOD 02/12/2025 3:54 AM EDT [facility] nRBC 0.0 <=0.0 per 100 WBCs LAB HEMATOLOGY METHOD 02/12/2025 3:54 AM EDT [facility] Blood Venous blood specimen / Unknown Venipuncture / Unknown 02/12/2025 3:48 AM EDT 02/12/2025 3:52 AM EDT Jackie BILL LAB BLOOD ORDERABLES Final Res ult [facility] [address] [place] [address] * XR Hip Left 2 or 3 [...] Fili Garza MD on 02/11/2025 6:56 PM us Abdelrahman Betancur MD IMG XR PROCEDURES Final Resu lt * FL Less than 1 Hour Intraoperative (02/11/2025 12:46 PM EDT) Narrative IMAGING - 02/11/2025 12:47 PM EDT Images were obtained for surgical purposes. See Abdelrahman Betancur's surgical note in the patient's chart for the findings. Abdelrahman Betancur MD IMG FLUOROSCOPY PROCEDURES F inal Result IMAGING * Surgical Pathology Exam (02/11/2025 12:37 PM EDT) Case Report Surgical Pathology Case: [id number] Authorizing Provider: Abdelrahman Betancur MD Collected: 02/11/2025 1237 Ordering Location: [facility] Operating Room Received: 02/11/2025 1432 Pathologist: Marielena Garay MD Specimen: Hip, Left, Femoral Head (gross only) 02/13/2025 3:33 PM EDT [facility] Final Diagnosis FEMORAL HEAD, EXCISION: -DEGENERATIVE JOINT DISEASE 02/13/2025 3:33 PM EDT [facility] at 1533 EDT Clinical Information Arthritis of left hip [M16.12] 02/13/2025 3:33 PM EDT [facility] Gross Description A. FEMORAL [...] only. Terese Tolliver 02/13/2025 3:33 PM EDT [facility] Note: A resident was involved in the service. I attest I examined the relevant preparations for the specimens and confirmed the diagnosis or interpretation. 02/13/2025 3:33 PM EDT [facility] Bone Left hip region structure / Unknown 02/11/2025 12:37 PM EDT 02/11/2025 2:32 PM EDT Comment:Pre-op diagnosis: Arthritis of left hip [M16.12] us Abdelrahman Betancur MD LAB PATHOLOGY ORDERABLES Cirilo flores Result [facility] [address] [place] [address] documented in this encounter Visit Diagnoses Diagnosis [...] magnesium hydroxide bupivacaine-EPINEPHrine PF (Marcaine w/EPI) 0.5% -1:232054 injection As needed, Starting on Tue02/11/25 at 1236, Until Tue02/11/25 at 1305, Routine, Intraprocedure Given 02/11/2025 12:36 PM EDT 60 mL Left Upper Hip calcium-vitamin D 500-200 MG-UNIT per tablet 1 [...] or hydromorphone vancomycin (Vancocin) vial for injection As needed, Starting on Tue02/11/25 at 1219, Until Tue02/11/25 at 1305, Routine, Intraprocedure Given 02/11/2025 12:19 PM EDT 1 g Left Upper Hip vancomycin in NS (Vancocin) IVPB 1,250 mg [...] Tessa Hendrix) 0518 (Given - Provider: Tessa Hendirx)1332 (Given - Provider: Noni Kirk) aprepitant (Emend) capsule 40 mg (COMPLETED) 40 mg, Oral, Once, 1 dose, On Tue02/11/25 at 1000, Routine, Holding - Preprocedure 1039 (Given - Provider: Holli Pruitt, SONI) aspirin chewable tablet 81 mg 81 mg, Oral, 2 times daily, First dose on Tue02/12/25 at 0900, Until Discontinued, Routine, Recovery(Phase II-Outpatient)/On Unit(Inpatient) 0836 (Given - Provid er: Noni Kirk) calcium-vitamin D 500-200 MG-UNIT per tablet 1 [...] Tue02/12/25 at 1130, Routine, Recovery(Phase II-Outpatient)/On Unit(Inpatient) 222 (Given - Provider: Tessa Hendrix - Comment: [...] Recovery(Phase II-Outpatient)/On Unit(Inpatient) 1726 (Given - Provider: Zhannatrey Parker RN)2341 (Given - Provider: Tessa Hendrix) [...] Preprocedure 1040 (Given - Provider: Holli Pruitt, RN) pantoprazole (Protonix) EC tablet 40 mg 40 mg, Oral, Daily before breakfast, First dose on Tue02/11/25 at 1500, Until Discontinued, Routine, Recovery(Phase II-Outpatient)/On Unit(Inpatient) 1502 (Given - Provider: Zhanna Parker RN) 0835 (Given - Provider: Noni Kirk) polyethylene [...] STAT 0932 (New Bag - Provider: Holli Pruitt RN) Continuous Medication Order 02/10/2025 02/11/2025 02/12/2025 lactated Ringer's infusion 50 mL/hr, Intravenous, Continuous, Starting on Tue02/11/25 at 1500, Until Tue02/12/25 at 1454, Routine 1455 (Continued from OR - Provider: Zhanna Parker RN)2341 (New Bag - Provider: Tessa Hendrix) 0500 [...] magnesium hydroxide bupivacaine-EPINEPHrine PF (Marcaine w/EPI) 0.5% -1:947076 injection (CANCELED) As needed, Starting on Tue02/11/25 [...] PRN, Starting on Tue02/11/25 at 1403, Until 02/12/25 at 1657, Routine, Recovery(Phase II-Outpatient)/On Unit(Inpatient), severe [...] documented as of this encounter Care Teams Advertising Rep Relationship Specialty Start Date End Date Wan Santoro MD [address] [place] [id number] [place] [phone] PCP - General 01/20/21 Dalton Hurley MD [address] [facility] [address] [place] [address] Consulting Physician Radiation Therapy 03/27/21 Geovanny Dominguez MD [address] [place] [address] Surgeon Neurosurgery 05/21/21 Rudolph Dillard MD [address] [address] Consulting Physician Medical Oncology 09/22/21 Abdiel Vargas, PRERNA [address] [facility] [address] [place] [address] Nurse Practitioner Internal Medicine 04/09/[address] [facility] [place] [id number] Referring Physician 11/14/24 Brian Flores MD [address] [place] [address] Consulting Physician Cardiology 11/14/24 documented as of this encounter
[2025-02-25 17:38] LABS: Chloride 102 mmol/L (98-107); Potassium 4.0 mmoL/L (3.5-5.1); Sodium 139 mmol/L (136-145)
[2025-02-25 17:41] LABS: Anion Gap 14.0 mEq/L (5-15); Blood Urea Nitrogen 17 mg/dl (7-17); Calcium 9.5 mg/dl (8.4-10.2); Carbon Dioxide 27 mmol/L (22.0-30.0); Creatinine,Serum 0.70 mg/dl (0.52-1.04); Estimated Glomerular Filt Rate 83 ml/min (>60); GFR (African American) 100 ML/MIN (>60); Glucose 86 mg/dl (74-100)
--- OUTSIDE RECORDS SUMMARY | 2025-02-26 11:20 | XMS_ITS | Encounter Summary ---
Author Organization [facility] Address [address] [place] [address] Care Team Providers Care Hand Spring Former Name Role Phone Wan Santoro MD Primary Care Provider [phone] Dalton Hurley MD Unavailable [phone] Geovanny Dominguez MD Unavailable [phone] Rudolph Dillard MD Unavailable [phone] Abdiel Vargas APRN Unavailable [phone] Rodney Maria MD Unavailable [phone] Brian Flores MD Unavailable [phone] Reason for Visit * Reason Comments Post-op Encounter Details Date Type Department Care Team (Late st Contact Info) Description 02/26/2025 11:20 AM EDT Office Visit Medical Office Building Surgery Spine & Joint [address] [facility], [address] [place] [address] Renetta Stoner PA [address] [place] [address] S/P total left hip arthroplasty [...] [address] [facility], [address] [place] [address] 03/06/2025 11:30 AM EDT Office Visit [facility] [place] [address] [facility], [address] [place] [address] Dian Yancey PA 800 [place] [address] 03/26/2025 11:10 AM EDT Office Visit Medical Office Building Surgery Spine & Joint [address] [facility], [address] [place] [address] Abdelrahman Betanucr MD [address] [facility] 201 [place] [address] 04/02/2025 9:40 AM EDT Appointment [facility] Radiology [address] [place] [address] 04/02/2025 10:45 AM EDT Appointment [facility] Radiology [address] [place] [address] 04/02/2025 1:15 PM EDT Clinical Support [facility] Res[facility] [address] [facility], 2nd [place] [address] 04/02/2025 1:40 PM EDT Office Visit [facility] [address] [facility], 2nd [place] [address] Rudolph Dillard MD [address] [facility] 2nd [place] [address] 04/08/2025 7:30 AM EDT Hospital Encounter [facility] S Operating Room [address] [place] [address] Abdelrahman Betancur MD [address] [facility] [address] [place] [address] 04/08/2025 7:30 AM EDT - 04/08/2025 10:15 AM EDT Surgery [facility] S Operating Room [address] [place] [address] Abdelrahman Betancur MD [address] [facility] [address] [place] [address] ARTHROPLASTY, HIP, TOTAL, ANTERIOR APPROACH [[id number] (CPT )] 04/23/2025 11:00 AM EDT Office Visit Medical Office Building Surgery Spine & Joint [address] [facility], [address] [place] [address] Renetta Stoner PA [address] [facility] [address] [place] [address] 05/21/2025 11:10 AM EST Office Visit Medical Office Building Surgery Spine & Joint [address] [facility], [address] [place] [address] Abdelrahman Betancur MD [address] [facility] [address] [place] [address] 01/08/2026 2:00 PM EDT Appointment Medical Office Building Cardiac Diagnostic Testing Medical Office Building Echo Lab [address] [facility], [address] [place] [address] 01/08/2026 3:00 PM EDT Office Visit [facility] [place] [address] [facility], [address] [place] [address] Dian Yancey PA [address] [place] [address] Scheduled Orders Name Type Priority Associated Diagnoses Orde r Schedule XR Pelvis 1 or 2 Views Imaging Routine S/P total left hip arthroplasty Expected: 03/29/2025 (Approximate), Expires: 08/30/2026 Scheduled Procedures Name Priority Associated Diagnoses Date/Ti me ARTHROPLASTY, HIP, TOTAL, ANTERIOR APPROACH Arthritis of right hip 04/08/2025 7:30 AM EDT documented as of this encounter Goals Goal Patient Goal Type Associated Problems Recent Progress Patient-Stated? Author Autogenerat ed Goal Care Plan Autogenerated Problem No Latisha Sun documented as of this encounter Visit Diagnoses Diagnosis S/P total left hip arthroplasty- Primary Arthritis of right hip documented in [...] documented as of this encounter Care Teams Hand Spring Former Relationship Specialty Start Date End Date Wan Santoro MD [id number] [place] [address] PCP - General 01/20/21 Dalton Hurley MD [address] [facility] [address] [place] [address] Consulting Physician Radiation Therapy 03/27/21 Geovanny Dominguez MD [address] [place] [address] Surgeon Neurosurgery 05/21/21 Rudolph Dillard MD [address] [place] [address] Consulting Physician Medical Oncology 09/22/21 Abdiel Vargas APRN [address] [place] [address] Nurse Practitioner Internal Medicine 04/09/22 Rodney Maria MD [address] [address] Referring Physician 11/14/24 Brian Flores MD [address] [place] [address] Consulting Physician Cardiology 11/14/24 documented as of this encounter
--- OUTSIDE RECORDS SUMMARY | 2025-02-26 14:24 | XMS_ITS | Encounter Summary ---
Author Organization [facility] Address [address] [place] [address] Care Team Providers Care Cover Stripper Name Role Phone Wan Santoro MD Primary Care Provider [phone] Dalton Hurley MD Unavailable [phone] Geovanny Dominguez MD Unavailable [phone] Rudolph Dillard MD Unavailable [phone] Abdiel Vargas APRN Unavailable [phone] Rodney Maria MD Unavailable [phone] Brian Flores MD Unavailable [phone] Reason for Referral * Consultation (Routine) - Closed Specialty Diagnoses / Procedures Referred By [place] Referred To Contact Orthopaedic Surgery Diagnoses Primary osteoarthritis of both hips Lan Justin DO [address] [place] [address] [place] [address] Phone: tel: fax: Abdelrahman Betancur MD [address] [place] [address] Phone: tel: fax: Referral ID Status Reason Start Date Expiration Date Visits Re quested Visits Authorized [id number] Closed 07/19/2024 01/18/2026 1 1 Encounter Details Date Type Department Care Team (Latest Contact Info) Description 07/19/2024 Community [facility] [address] [place] [address] Lan Justin, DO [address] [place] [address] [place] [address] Primary osteoarthritis of both hips (Primary Dx) [...] Medical Office Building Echo Lab [address] [facility], [address] [place] [address] 03/06/2025 11:30 AM EDT Office Visit [facility] [place] [address] [facility], [address] [place] [address] Dian Yancey PA 800 [place] [address] 03/26/2025 11:10 AM EDT Office Visit Medical Office Building Surgery Spine & Joint [address] [facility], [address] [place] [address] Abdelrahman Betancur MD [address] [facility] 201 [place] [address] 04/02/2025 9:40 AM EDT Appointment [facility] Radiology [address] [place] [address] 04/02/2025 10:45 AM EDT Appointment [facility] Radiology [address] [place] [address] 04/02/2025 1:15 PM EDT Clinical Support [facility] 800 [facility], 2nd [place] [address] 04/02/2025 1:40 PM EDT Office Visit [facility] [address] [facility], 2nd [place] [address] Rudolph Dillard MD 800 [facility] 2nd [place] [address] 04/08/2025 7:30 AM EDT Hospital Encounter [facility] S Operating Room [address] [place] [address] Abdelrahman Betancur MD [address] [place] [address] 04/08/2025 7:30 AM EDT - 04/08/2025 10:15 AM EDT Surgery [facility] S Operating Room [address] [place] [address] Abdelrahman Betancur MD [address] [place] [address] ARTHROPLASTY, HIP, TOTAL, ANTERIOR APPROACH [[id number] (CPT )] 04/23/2025 11:00 AM EDT Office Visit Medical Office Building Surgery Spine & Joint [address], [address] [place] [address] Renetta Stoner PA [address] [place] [address] 05/21/2025 11:10 AM EST Office Visit Medical Office Building Surgery Spine & Joint [address], [address] [place] [address] Abdelrahman Betancur MD [address] [place] [address] 01/08/2026 2:00 PM EDT Appointment Medical Office Building Cardiac Diagnostic Testing Medical Office Building Echo Lab [address] [facility], [address] [place] [address] 01/08/2026 3:00 PM EDT Office Visit [facility] [place] [address] [facility], [address] [place] [address] Dian Yancey PA [address] [place] [address] Scheduled Procedures Name Priority Associated [...] osteoarthritis of both hips- Primary Arthritis of right hip documented in this encounter Additional Health Concerns Assessment Noted Time PHQ-9 Depression Total Score: 0 01/28/20 21 1:00 PM EDT A fall risk assessment has been complete d for the patient 05/29/2024 1:34 PM EST A Body Mass Index follow-up plan has been documented for the patient 08/18/2023 1:23 PM EST documented as of this encounter Care Teams Cover Stripper Relationship Specialty Start Date End Date Wan Santoro MD 12[address] [facility] [address] [place] [address] PCP - General 01/20/21 Dalton Hurley MD 800 [facility] [address] [place] [address] Consulting Physician Radiation Therapy 03/27/21 Geovanny Dominguez MD [address] [place] [address] Surgeon Neurosurgery 05/21/21 Rudolph Dillard MD [address] [phone] Consulting Physician Medical Oncology 09/22/21 Abdiel Vargas APRN 800 [facility] [address] [place] [address] Nurse Practitioner Internal Medicine 04/09/22 Rodney Maria MD 1210 [place] [address] Referring Physician 11/14/24 Brian Flores MD 800 [place] [address] Consulting Physician Cardiology 11/14/24 documented as of this encounter
--- OUTSIDE RECORDS SUMMARY | 2025-02-26 14:24 | XMS_ITS | Encounter Summary ---
Author Organization [facility] Address [address] [place] [address] Care Team Providers Care Shoeblack Name Role Phone Wan Santoro MD Primary Care Provider [phone] Dalton Hurley MD Unavailable [phone] Geovanny Dominguez MD Unavailable [phone] Rudolph Dillard MD Unavailable [phone] Abdiel Vargas APRN Unavailable [phone] Rodney Maria MD Unavailable [phone] Brian Flores MD Unavailable [phone] Encounter Details Date Type Department Care Team (Latest Contact Info) Description 02/26/2025 Travel Social History Tobacco Use Types Packs/Day [...] Upcoming Encounters Date Type Department Care Team ( st Contact Info) Description 03/06/2025 10:00 AM EDT Appointment Medical Office Building Cardiac Diagnostic Testing Medical Office Building Echo Lab [address] [facility], [address] [place] [address] 03/06/2025 11:30 AM EDT Office Visit [facility] [place] [address] [facility], [address] [place] [address] Dian Yancey PA 800 [place] [address] 03/26/2025 11:10 AM EDT Office Visit Medical Office Building Surgery Spine & Joint [address] [facility], [address] [place] [address] Abdelrahman Betancur MD [address] [facility] 201 [place] [address] 04/02/2025 9:40 AM EDT Appointment [facility] Radiology 1000 [place] [address] 04/02/2025 10:45 AM EDT Appointment [facility]iology [address] [place] [address] 04/02/2025 1:15 PM EDT Clinical Support [facility] Res[facility] 800 [facility] 2nd [place] [address] 04/02/2025 1:40 PM EDT Office Visit [facility] [address] [address] Rudolph Dillard MD [address] [address] 04/08/2025 7:30 AM EDT Hospital Encounter [facility] S Operating Room [address] [place] [address] Abdelrahman Betancur MD [address] [facility] 201 [place] [address] 04/08/2025 7:30 AM EDT - 04/08/2025 10:15 AM EDT Surgery [facility] S Operating Room [address] [place] [address] Abdelrahman Betancur MD [address] [facility] 201 [place] [address] ARTHROPLASTY, HIP, TOTAL, ANTERIOR APPROACH [[id number] (CPT )] 04/23/2025 11:00 AM EDT Office Visit Medical Office Building Surgery Spine & Joint [address] [facility], [address] [place] [address] Renetta Stoner PA [address] [facility] 201 [place] [address] 05/21/2025 11:10 AM EST Office Visit Medical Office Building Surgery Spine & Joint [address] [facility], [address] [place] [address] Abdelrahman Betancur MD [address] [facility] 201 [place] [address] 01/08/2026 2:00 PM EDT Appointment Medical Office Building Cardiac Diagnostic Testing Medical Office Building Echo Lab [address] [facility], [address] [place] [address] 01/08/2026 3:00 PM EDT Office Visit [facility] [place] [address] [facility], [address] [place] [address] Dian Yancey PA [address] [place] [address] Scheduled Procedures Name Priority Associated Diagnoses [...] documented as of this encounter Care Teams Shoeblack Relationship Specialty Start Date End Date Wan Santoro MD [address] [place] [address] PCP - General 01/20/21 Dalton Hurley MD 800 [facility] [address] [place] [address] Consulting Physician Radiation Therapy 03/27/21 Geovanny Dominguez MD 740 [facility] [address] [place] [address] Surgeon Neurosurgery 05/21/21 Rudolph Dillard MD [address] [address] Consulting Physician Medical Oncology 09/22/21 Abdiel Vargas, CLINIC CLERK 800 [facility] [address] [place] [address] Nurse Practitioner Internal Medicine 04/09/22 Rodney Maria MD [address] [place] [address] Referring Physician 11/14/24 Brian Flores MD 800 [place] [address] Consulting Physician Cardiology 11/14/24 documented as of this encounter
--- OUTSIDE RECORDS SUMMARY | 2025-02-26 14:24 | XMS_ITS | Clinical Summary ---
Author Organization [facility] Address [address] [place] [address] Care Team Providers Care Ice Cream Truck Driver Name Role Phone Wan Santoro MD Primary Care Provider [phone] Encounters Date Type Department Care Team Description 11/27/2024 Documentation [facility] [address] [place] [address] Basilia Dimas, R.T.(R) from Last [...] Most Recently Relevant to Health Maintenance Insurance [facility] [employer] PPO Care Teams Ice Cream Truck Driver Relationship Specialty Start Date End Date Wan Santoro MD [address]10 [facility] [address] [place] [address] PCP - General Internal Medicine 05/10/16
--- OUTSIDE RECORDS SUMMARY | 2025-02-26 14:24 | XMS_ITS ---
Author Organization Unknown TREATMENT PLAN [facility] Start Date Provider Encounter for Check-up [id number] [facility]
--- OUTSIDE RECORDS SUMMARY | 2025-02-26 14:24 | XMS_ITS | Encounter Summary ---
Author Organization [facility] Address [address] [place] [address] Care Team Providers Care Fulfillment Representative Name Role Phone Wan Santoro MD Primary Care Provider [phone] Dalton Hurley MD Unavailable [phone] Geovanny Dominguez MD Unavailable [phone] Rudolph Dillard MD Unavailable Abdiel Vargas APRN Unavailable [phone] Rodney Maria MD Unavailable [phone] Brian Flores MD Unavailable [phone] Encounter Details Date Type Department Care Team ([facility] st Contact Info) Description 02/01/2025 Telephone Medical Office Building Surgery Spine & Joint [address], [address] [place] [address] Abdelrahman Betancur MD [address] [place] [address] Social History Tobacco Use Types [...] encounter Miscellaneous Notes * Telephone Encounter - Kala Haney, RN - 02/01/2025 4:15 PM EDT OP PT referral faxed to [facility] OP PT again per patient request. They stated they have not received theprevious fax sent 01/25/25. documented in this encounter Plan of Treatment Upcoming Encounters Date Type Department Care Team (Late st Contact Info) Description 03/06/2025 10:00 AM EDT Appointment Medical Office Building Cardiac Diagnostic Testing Medical Office Building Echo Lab [address], [address] [place] [address] 03/06/2025 11:30 AM EDT Office Visit [facility] [place], [address] [place] [address] Dian Yancey PA [address] [place] [address] 03/26/2025 11:10 AM EDT Office Visit Medical Office Building Surgery Spine & Joint [address], [address] [place] [address] Abdelrahman Betancur MD [address] [facility] 201 [place] [address] 04/02/2025 9:40 AM EDT Appointment [facility] [address] [place] [address] 04/02/2025 10:45 AM EDT Appointment [facility] [address] [place] [address] 04/02/2025 1:15 PM EDT Clinical Support [facility] Res[facility] 800 [facility], 2nd [place] [address] 04/02/2025 1:40 PM EDT Office Visit [facility] 800 [facility], 2nd [place] [address] Rudolph Dillard MD 800 [facility] 2nd [place] [address] 04/08/2025 7:30 AM EDT Hospital Encounter [facility] S Operating Room [address] [place] [address] Abdelrahman Betancur MD [address] [place] [address] 04/08/2025 7:30 AM EDT - 04/08/2025 10:15 AM EDT Surgery [facility] Operating Room [address] [place] [address] Abdelrahman Betancur MD [address] [place] [address] ARTHROPLASTY, HIP, TOTAL, ANTERIOR APPROACH [96233 (CPT )] 04/23/2025 11:00 AM EDT Office Visit Medical Office Building Surgery Spine & Joint [address], [address] [place] [address] Renetta Stoner PA [address] [place] [address] 05/21/2025 11:10 AM EST Office Visit Medical Office Building Surgery Spine & Joint [address], [address] [place] [address] Abdelrahman Betancur MD [address] [place] [address] 01/08/2026 2:00 PM EDT Appointment Medical Office Building Cardiac Diagnostic Testing Medical Office Building Echo Lab [address], [address] [place] [address] 01/08/2026 3:00 PM EDT Office Visit [facility] [place] G[address]ais [address], [address] [place] [address] Dian Yancey PA [address] [place] [address] Scheduled Procedures Name Priority [...] documented as of this encounter Care Teams Fulfillment Representative Relationship Specialty Start Date End Date Wan Santoro MD [address] [facility] [address] [place] [address] PCP - General 01/20/21 Dalton Hurley MD 800 [facility] [address] [place] [address] Consulting Physician Radiation Therapy 03/27/21 Geovanny Dominguez MD [address] [place] [address] Surgeon Neurosurgery 05/21/21 Rudolph Dillard MD 800 [facility] 2nd [place] [address] Consulting Physician Medical Oncology 09/22/21 Abdiel Vargas APRN 800 [facility] [address] [address] Nurse Practitioner Internal Medicine 04/09/22 Rodney Maria MD [address]10 [place] [address] Referring Physician 11/14/24 Brian Flores MD 800 [place] [address] Consulting Physician Cardiology 11/14/24 documented as of this encounter
--- OUTSIDE RECORDS SUMMARY | 2025-02-26 14:24 | XMS_ITS | Encounter Summary ---
Author Organization [facility] Address [address] [place] [address] Care Team Providers Care Hygiene Coordinator Name Role Phone Wan Santoro MD Primary Care Provider [phone] Dalton Hurley MD Unavailable [phone] Geovanny Dominguez MD Unavailable [phone] Rudolph Dillard MD Unavailable [phone] Abdiel Vargas APRN Unavailable [phone] Rodney Maria MD Unavailable [phone] Brian Flores MD Unavailable [phone] Encounter Details Date Type Department Care Team (Latest Contact Info) Description 02/11/2025 Travel Social History Tobacco Use Types Packs/Day [...] Parker RN documented as of this encounter Plan of Treatment Upcoming Encounters Date Type Department Care Team (Late st Contact Info) Description 03/06/2025 10:00 AM EDT Appointment Medical Office Building Cardiac Diagnostic Testing Medical Office Building Echo Lab [address] [facility], [address] [place] [address] 03/06/2025 11:30 AM EDT Office Visit [facility] [place] [address] [facility], [address] [place] [address] Dian Yancey PA [address] [place] [address] 03/26/2025 11:10 AM EDT Office Visit Medical Office Building Surgery Spine & Joint [address] [facility], [address] [place] [address] Abdelrahman Betancur MD [address] [facility] 201 [place] [address] 04/02/2025 9:40 AM EDT Appointment [facility] [address] [place] [address] 04/02/2025 10:45 AM EDT Appointment [facility] [address] [place] [address] 04/02/2025 1:15 PM EDT Clinical Support [facility]ck [facility] Res[facility] 800 [facility], 2nd [place] [address] 04/02/2025 1:40 PM EDT Office Visit [facility] Head[facility]ck [facility] Res[facility] 800 [facility], 2nd [place] [address] Rudolph Dillard MD [address] [address] 04/08/2025 7:30 AM EDT Hospital Encounter [facility] Operating Room [address] [place] [address] Abdelrahman Betancur MD [address] [place] [address] 04/08/2025 7:30 AM EDT - 04/08/2025 10:15 AM EDT Surgery [facility] Operating Room [address] [place] [address] Abdelrahman Betancur MD [address] [place] [address] ARTHROPLASTY, HIP, TOTAL, ANTERIOR APPROACH [97390 (CPT )] 04/23/2025 11:00 AM EDT Office Visit Medical Office Building Surgery Spine & Joint [address], [address] [place] [address] Renetta Stoner PA [address] [place] [address] 05/21/2025 11:10 AM EST Office Visit Medical Office Building Surgery Spine & Joint [address], [address] [place] [address] Abdelrahman Betancur MD [address] [place] [address] 01/08/2026 2:00 PM EDT Appointment Medical Office Building Cardiac Diagnostic Testing Medical Office Building Echo Lab [address], [address] [place] [address] 01/08/2026 3:00 PM EDT Office Visit [facility] [place] A [address], [address] [place] [address] Dian Yancey PA [address] [place] [address] Scheduled Procedures Name Priority Associated [...] documented as of this encounter Care Teams Hygiene Coordinator Relationship Specialty Start Date End Date Wan Santoro MD [address] [place] [address] PCP - General 01/20/21 Dalton Hurley MD 800 [facility] [address] [place] [address] Consulting Physician Radiation Therapy 03/27/21 Geovanny Dominguez MD [address] [facility] [address] [place] [address] Surgeon Neurosurgery 05/21/21 Rudolph Dillard MD 800 [facility] 2nd [place] [address] Consulting Physician Medical Oncology 09/22/21 Abdiel Vargas APRN 800 [facility] Hannah [facility] [address] [place] [address] Nurse Practitioner Internal Medicine 04/09/22 Rodney Maria MD [address] [id number] Referring Physician 11/14/24 Brian Flores MD [address] [place] [address] Consulting Physician Cardiology 11/14/24 documented as of this encounter
--- OUTSIDE RECORDS SUMMARY | 2025-02-26 14:24 | XMS_ITS | Encounter Summary ---
Author Organization [facility] Address [address] [place] [address] Care Team Providers Care Donor Center Technician Name Role Phone Wan Santoro MD Primary Care Provider [phone] Dalton Hurley MD Unavailable [phone] Geovanny Dominguez MD Unavailable [phone] Rudolph Dillard MD Unavailable [phone] Abdiel Vargas APRN Unavailable [phone] Rodney Marai MD Unavailable [phone] Brian Flores MD Unavailable [phone] Encounter Details Date Type Department Care Team (Late st Contact Info) Description 11/29/2023 Orders Only External Location [address] [place] [address] Provider, External Social History Tobacco Use Types [...] [address], [address] [place] [address] 03/06/2025 11:30 AM EDT Office Visit [facility] [place] [address] [facility], [address] [place] [address] Dian Yancey PA [address] [place] [address] 03/26/2025 11:10 AM EDT Office Visit Medical Office Building Surgery Spine & Joint [address] [facility], [address] [place] [address] Abdelrahman Betancur MD [address] [facility] 201 [place] [address] 04/02/2025 9:40 AM EDT Appointment [facility] 1000 [place] [address] 04/02/2025 10:45 AM EDT Appointment [facility] [address] [place] [address] 04/02/2025 1:15 PM EDT Clinical Support [facility] Head, Neck & Respiratory 800 [facility], 2nd [place] [address] 04/02/2025 1:40 PM EDT Office Visit [facility]ck [facility] Res[facility] 800 [facility], [address]nd [place] [address] Rudolph Dillard MD [address] [address] 04/08/2025 7:30 AM EDT Hospital Encounter [facility] Operating Room [address] [place] [address] Abdelrahman Betancur MD [address] [facility] 201 [place] [address] 04/08/2025 7:30 AM EDT - 04/08/2025 10:15 AM EDT Surgery [facility] Operating Room [address] [place] [address] Abdelrahman Betancur MD [address] [facility] 201 [place] [address] ARTHROPLASTY, HIP, TOTAL, ANTERIOR APPROACH [83644 (CPT )] 04/23/2025 11:00 AM EDT Office Visit Medical Office Building Surgery Spine & Joint [address] [facility], [address] [place] [address] Renetta Stoner PA [address] [facility] 201 [place] [address] 05/21/2025 11:10 AM EST Office Visit Medical Office Building Surgery Spine & Joint [address] [facility], [address] [place] [address] Abdelrahman Betancur MD [address] [facility] 201 [place] [address] 01/08/2026 2:00 PM EDT Appointment Medical Office Building Cardiac Diagnostic Testing Medical Office Building Echo Lab [address] [facility], [address] [place] [address] 01/08/2026 3:00 PM EDT Office Visit [facility] [place] [address] [facility], [address] [place] [address] Dian Yancey PA [address] [place] [address] Scheduled Procedures Name Priority Associated Diagnoses [...] documented as of this encounter Care Teams Donor Center Technician Relationship Specialty Start Date End Date Wan Santoro MD [facility] [address] [place] [address] PCP - General 01/20/21 Dalton Hurley MD [address] [facility] [address] [place] [address] Consulting Physician Radiation Therapy 03/27/21 Geovanny Dominguez MD [address] [place] [address] Surgeon Neurosurgery 05/21/21 Rudolph Dillard MD [address] [address] Consulting Physician Medical Oncology 09/22/21 Abdiel Vargas, LINE OUT MAN [address] [place] [address] Nurse Practitioner Internal Medicine 04/09/22 Rodney Maria MD [address] [place] [address] Referring Physician 11/14/24 Brian Flores MD [address] [place] [address] Consulting Physician Cardiology 11/14/24 documented as of this encounter
--- OUTSIDE RECORDS SUMMARY | 2025-02-26 14:25 | XMS_ITS | Encounter Summary ---
Author Organization [facility] Address [address] [place] [address] Care Team Providers Care Farm Management Teacher Name Role Phone Wan Santoro MD Primary Care Provider Dalton Hurley MD Unavailable [phone] Geovanny Dominguez MD Unavailable [phone] Rudolph Dillard MD Unavailable [phone] Abdiel Vargas APRN Unavailable [phone] Rodney Maria MD Unavailable [phone] Brian Flores MD Unavailable [phone] Encounter Details Date Type Department Care Team [...] Wish to be (Past 1 Month) No 8:00 AM EDT Shravan Ivory RN 2. Non-Specific Active Suici rahel Thoughts (Past 1 Month) No 12/28/2024 8:00 AM EDT Shravan Ivory RN 6. Suicidal Behavior (Lifetime) No 8:00 AM EDT Shravan Ivory RN documented as of this encounter Plan of Treatment Upcoming Encounters Date Type Department Care Team (Late st Contact Info) Description 03/06/2025 10:00 AM EDT Appointment Medical Office Building Cardiac Diagnostic Testing Medical Office Building Echo Lab [address] [facility], [address] [place] [address] 03/06/2025 11:30 AM EDT Office Visit [facility] [place] [address] [facility], [address] [place] [address] Dian Yancey PA 800 [place] [address] 03/26/2025 11:10 AM EDT Office Visit Medical Office Building Surgery Spine & Joint [address] [facility], [address] [place] [address] Abdelrahman Betancur MD 125 [address] [facility] 201 [place] [address] 04/02/2025 9:40 AM EDT Appointment [facility] [address] [place] [address] 04/02/2025 10:45 AM EDT Appointment [facility] [address] [place] [address] 04/02/2025 1:15 PM EDT Clinical Support Pav [facility] Head, Neck & Respiratory 800 [facility], 2nd [place] [address] 04/02/2025 1:40 PM EDT Office Visit [facility] Head[facility] Neck & Respiratory 800 [facility], 2nd [place] [address] Rudolph Dillard MD [address] [address] 04/08/2025 7:30 AM EDT Hospital Encounter [facility] Operating Room [address] [place] [address] Abdelrahman Betancur MD [address] [place] [address] 04/08/2025 7:30 AM EDT - 04/08/2025 10:15 AM EDT Surgery [facility] Operating Room 310 [place] [address] Abdelrahman Betancur MD [address] [place] [address] ARTHROPLASTY, HIP, TOTAL, ANTERIOR APPROACH [99415 (CPT )] 04/23/2025 11:00 AM EDT Office Visit Medical Office Building Surgery Spine & Joint [address] [facility], [address] [place] [address] Renetta Stoner PA [address] [place] [address] 05/21/2025 11:10 AM EST Office Visit Medical Office Building Surgery Spine & Joint [address], [address] [place] [address] Abdelrahman Betancur MD [address] [place] [address] 01/08/2026 2:00 PM EDT Appointment Medical Office Building Cardiac Diagnostic Testing Medical Office Building Echo Lab [address], [address] [place] [address] 01/08/2026 3:00 PM EDT Office Visit [facility] [place] [address] [facility], [address] [place] [address] Dian Yancey PA 800 [place] [address] Scheduled Procedures Name Priority Associated [...] documented as of this encounter Care Teams Farm Management Teacher Relationship Specialty Start Date End Date Wan Santoro MD [facility] [address] [place] [address] PCP - General 01/20/21 Dalton Hurley MD 800 [facility] [address] [place] [address] Consulting Physician Radiation Therapy 03/27/21 Geovanny Dominguez MD [address] [facility] [address] [place] [address] Surgeon Neurosurgery 05/21/21 Rudolph Dillard MD [address] 2[address] [place] [address] Consulting Physician Medical Oncology 09/22/21 Abdiel Vargas APRN [address] [place] [address] Nurse Practitioner Internal Medicine 04/09/22 Rodney Maria MD [address] [facility] 36 [place] [address] Referring Physician 11/14/24 Brian Flores MD [address] [place] [address] Consulting Physician Cardiology 11/14/24 documented as of this encounter
--- OUTSIDE RECORDS SUMMARY | 2025-02-26 14:25 | XMS_ITS | Encounter Summary ---
Author Organization [facility] Address [address] [place] [address] Care Team Providers Care Aoc Aadc Operations Staff Officer Name Role Phone Wan Santoro MD Primary Care Provider [phone] Dalton Hurley MD Unavailable [phone] Geovanny Dominguez MD Unavailable [phone] Rudolph Dillard MD Unavailable [phone] Abdiel Vargas APRN Unavailable [phone] Rodney Maria MD Unavailable [phone] Brian Flores MD Unavailable [phone] Encounter Details Date Type Department Care Team (Late st Contact Info) Description 01/26/2021 Lab Requisition [facility] [address] [place] [address] Rudolph Dillard MD [address] [address] Other nonspecific abnormal finding of [...] Office Building Echo Lab [address] [facility], [address] [place] [address] 03/06/2025 11:30 AM EDT Office Visit [facility] [place] [address] [facility], [address] [place] [address] Dian Yancey PA [address] [place] [address] 03/26/2025 11:10 AM EDT Office Visit Medical Office Building Surgery Spine & Joint [address] [facility], [address] [place] [address] Adbelrahman Betancur MD [address] [address] 04/02/2025 9:40 AM EDT Appointment [facility] [address] [place] [address] 04/02/2025 10:45 AM EDT Appointment [facility] [address] [place] [address] 04/02/2025 1:15 PM EDT Clinical Support Pav [facility] Head[facility] Neck & Respiratory 800 [facility], 2nd [place] [address] 04/02/2025 1:40 PM EDT Office Visit [facility] Head[facility] Neck & Respiratory 800 [facility], 2nd [place] [address] Rudolph Dillard MD [address] [address] 04/08/2025 7:30 AM EDT Hospital Encounter [facility] S Operating Room [address] [place] [address] Abdelrahman Betancur MD [address] [facility] 201 [place] [address] 04/08/2025 7:30 AM EDT - 04/08/2025 10:15 AM EDT Surgery [facility] S Operating Room [address] [place] [address] Abdelrahman Betancur MD [address] [facility] 201 [place] [address] ARTHROPLASTY, HIP, TOTAL, ANTERIOR APPROACH [30317 (CPT )] 04/23/2025 11:00 AM EDT Office Visit Medical Office Building Surgery Spine & Joint [address] [facility], [address] [place] [address] Renetta Stoner PA [address] [facility] 201 [place] [address] 05/21/2025 11:10 AM EST Office Visit Medical Office Building Surgery Spine & Joint [address] [facility], [address] [place] [address] Abdelrahman Betancur MD [address] [facility] 201 [place] [address] 01/08/2026 2:00 PM EDT Appointment Medical Office Building Cardiac Diagnostic Testing Medical Office Building Echo Lab [address] [facility], [address] [place] [address] 01/08/2026 3:00 PM EDT Office Visit [facility] [place] [address] [facility], [address] [place] [address] Dian Yancey PA [address] [place] [address] Scheduled Procedures Name Priority Associated [...] 11:03 AM EDT) Case Report Cytology Case: [id number] Authorizing Provider: Rudolph Dillard MD Collected: 01/26/2021 110 Ordering Location: [facility] Lab Received: 01/26/2021 1103 Pathologist: Del Sosa MD Specimen: Lung, OU [id number] 01/27/2021 10:31 AM EDT [facility] Final Diagnosis OUTSIDE SLIDES RECEIVED (COLLECTED [...] WITH PULMONARY ADENOCARCINOMA. 01/27/2021 10:31 AM EDT [facility] at 1031 EDT Comment The clinical [...] findings is needed. 01/27/2021 10:31 AM EDT [facility] Clinical Information Left upper lobe lung mass biopsy from outside reportedly showed no alveolated lung, benign bronchial epithelium, and bronchial mucosa; negative for tumor 01/27/2021 10:31 AM EDT [facility] Gross Description A. OU [id number] For clinical data and diagnosis (A. NEGATIVE; B. MALIGNANT; C. MALIGNANT) for this specimen ([id number]/A. FNA; B. FNA; C. FNA) see final report issued by [facility] Pathology Department. 01/27/2021 10:31 AM EDT [facility] Fine Needle Aspirate Lung structure / Unknown 01/26/2021 11:03 AM EDT 01/26/2021 11:03 AM EDT Rudolph Dillard MD LAB PATHOLOGY ORDERABLES Final Result [facility] 800 [place] [address] documented in this encounter Visit Diagnoses Diagnosis Other nonspecific abnormal finding of lung field Arthritis of right hip documented in this encounter Care Teams Aoc Aadc Operations Staff Officer Relationship Specialty Start Date End Date Wan Santoro MD 1210 [facility] [address] [place] [address] PCP - General 01/20/21 Dalton Hurley MD 800 [facility] [address] [place] [address] Consulting Physician Radiation Therapy 03/27/21 Geovanny Dominguez MD [address] [facility] [address] [place] [address] Surgeon Neurosurgery 05/21/21 Rudolph Dillard MD [address] [address] Consulting Physician Medical Oncology 09/22/21 Abdiel Vargas, AIRCRAFT MAINTENANCE ENGINEER 800 [facility] [address] [place] [address] Nurse Practitioner Internal Medicine 04/09/22 Rodney Maria MD 1210 [facility] [address] [place] [address] Referring Physician 11/14/24 Brian Flores MD 800 [place] [address] Consulting Physician Cardiology 11/14/24 documented as of this encounter
--- OUTSIDE RECORDS SUMMARY | 2025-02-26 14:25 | XMS_ITS | Encounter Summary ---
Author Organization [facility] Address [address] [place] [address] Care Team Providers Care Supervisor Endless Track Vehicle Name Role Phone Wan Santoro MD Primary Care Provider Dalton Hurley MD Unavailable [phone] Geovanny Dominguez MD Unavailable [phone] Rudolph Dillard MD Unavailable [phone] Abdiel Vargas CONVEYOR FEEDER Unavailable [phone] Rodney Maria MD Unavailable [phone] Brian Flores MD Unavailable [phone] Reason for Visit * Reason Onset Date Comments Med Refill 01/28/2025 Encounter Details Date Type Department Care Team (Late st Contact Info) Description 01/28/2025 Refill Pav [facility] Head, Neck & Respiratory 800 [facility], 2nd [place] [address] Rudolph Dillard MD [address] [address] 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, [address] [place] [address] 03/06/2025 11:30 AM EDT Office Visit [facility] Irwin Casanova [address] [facility], [address] [place] [address] Dian Yancey PA 800 [place] [address] 03/26/2025 11:10 AM EDT Office Visit Medical Office Building Surgery Spine & Joint [address] [facility], [address] [place] [address] Abdelrahman Betancur MD [address] [place] [address] 04/02/2025 9:40 AM EDT Appointment [facility] Radiology [address] [place] [address] 04/02/2025 10:45 AM EDT Appointment [facility] Radiology [address] [place] [address] 04/02/2025 1:15 PM EDT Clinical Support Pav [facility] Head, Neck & Respiratory 800 [facility], 2nd [place] [address] 04/02/2025 1:40 PM EDT Office Visit [facility] Head[facility] Neck & Respiratory 800 [facility], 2nd [place] [address] Rudolph Dillard MD 800 [facility] 2nd [place] [address] 04/08/2025 7:30 AM EDT Hospital Encounter PAV S Operating Room [address] [place] [address] Abdelrahman Betancur MD 125 [address] [facility] 201 [place] [address] 04/08/2025 7:30 AM EDT - 04/08/2025 10:15 AM EDT Surgery PAV S Operating Room [address] [place] [address] Abdelrahman Betancur MD 125 [address] [facility] 201 [place] [address] ARTHROPLASTY, HIP, TOTAL, ANTERIOR APPROACH [80628 (CPT )] 04/23/2025 11:00 AM EDT Office Visit Medical Office Building Surgery Spine & Joint [address] [facility], [address] [place] [address] Renetta Stoner PA 125 [address] [facility] 201 [place] [address] 05/21/2025 11:10 AM EST Office Visit Medical Office Building Surgery Spine & Joint [address] [facility], [address] [place] [address] Abdelrahman Betancur MD 125 E [facility] 201 [place] [address] 01/08/2026 2:00 PM EDT Appointment Medical Office Building Cardiac Diagnostic Testing Medical Office Building Echo Lab [address] [facility], [address] [place] [address] 01/08/2026 3:00 PM EDT Office Visit [facility] Irwin Casanova [address] [facility], [address] [place] [address] Dian Yancey PA [address] [place] [address] Scheduled Procedures Name Priority Associated Diagnoses Date/Ti me ARTHROPLASTY, HIP, TOTAL, ANTERIOR APPROACH Arthritis of right hip 04/08/2025 7:30 AM EDT documented as of this encounter Goals Goal Patient Goal Type Associated Problems Recent Progress Patient-Stated? 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) Arthritis of right hip documented in this [...] documented as of this encounter Care Teams Supervisor Endless Track Vehicle Relationship Specialty Start Date End Date Wan Santoro MD [facility] [place] [address] PCP - General 01/20/21 Dalton Hurley MD 800 [facility] [address] [place] [address] Consulting Physician Radiation Therapy 03/27/21 Geovanny Dominguez MD [address] [facility] [address] [place] [address] Surgeon Neurosurgery 05/21/21 Rudolph Dillard MD 800 [facility] 2nd [place] [address] Consulting Physician Medical Oncology 09/22/21 Abdiel Vargas, PRERNA 800 [facility] [address] [place] [address] Nurse Practitioner Internal Medicine 04/09/22 Rodney Maria MD [address] [address] Referring Physician 11/14/24 Brian Flores MD [address] [place] [phone] Consulting Physician Cardiology 11/14/24 documented as of this encounter
--- OUTSIDE RECORDS SUMMARY | 2025-02-26 14:25 | XMS_ITS | Encounter Summary ---
Author Organization [facility] Address [address] [place] [address] Care Team Providers Care Tube Builder Airplane Name Role Phone Wan Santoro MD Primary Care Provider [phone] Dalton Hurley MD Unavailable [phone] Geovanny Dominguez MD Unavailable [phone] Rudolph Dillard MD Unavailable [phone] Abdiel Vargas APRN Unavailable [phone] Rodney Maria MD Unavailable [phone] Brian Flores MD Unavailable [phone] Encounter Details Date Type Department Care Team (Latest Contact Info) Description 02/04/2025 Travel Social History Tobacco Use Types Packs/Day [...] [facility], [address] [place] [address] 03/06/2025 11:30 AM EDT Office Visit [facility] [place] [address] [facility], [address] [place] [address] Dian Yancey PA 800 [place] [address] 03/26/2025 11:10 AM EDT Office Visit Medical Office Building Surgery Spine & Joint [address] [facility], [address] [place] [address] Abdelrahman Betancur MD [address] [facility] 201 [place] [address] 04/02/2025 9:40 AM EDT Appointment [facility] Radiology 1000 [place] [address] 04/02/2025 10:45 AM EDT Appointment [facility] Radiology [address] [place] [address] 04/02/2025 1:15 PM EDT Clinical Support Pav [facility] Head, Neck & Respiratory 800 [facility] 2nd [place] [address] 04/02/2025 1:40 PM EDT Office Visit Pav [facility] Head[facility] Neck & Respiratory [address] [phone] Rudolph Dillard MD [address] [address] 04/08/2025 7:30 AM EDT Hospital Encounter PAV S Operating Room [address] [place] [address] Abdelrahman Betancur MD [address] [facility] 201 [place] [address] 04/08/2025 7:30 AM EDT - 04/08/2025 10:15 AM EDT Surgery PAV S Operating Room [address] [place] [address] Abdelrahman Betancur MD [address] [facility] 201 [place] [address] ARTHROPLASTY, HIP, TOTAL, ANTERIOR APPROACH [03432 (CPT )] 04/23/2025 11:00 AM EDT Office Visit Medical Office Building Surgery Spine & Joint [address] [facility], [address] [place] [address] Renetta Stoner PA [address] [facility] 201 [place] [address] 05/21/2025 11:10 AM EST Office Visit Medical Office Building Surgery Sp[facility] & Joint [address] [facility], [address] [place] [address] Abdelrahman Betancur MD [address] [facility] 201 [place] [address] 01/08/2026 2:00 PM EDT Appointment Medical Office Building Cardiac Diagnostic Testing Medical Office Building Echo Lab [address] [facility], [address] [place] [address] 01/08/2026 3:00 PM EDT Office Visit [facility] [place] [address] [facility], [address] [place] [address] Dian Yancey PA [address] [place] [address] Scheduled Procedures Name Priority Associated Diagnoses [...] documented as of this encounter Care Teams Tube Builder Airplane Relationship Specialty Start Date End Date Wan Santoro MD [address] [place] [address] PCP - General 01/20/21 Dalton Hurley MD 800 [facility] [address] [place] [address] Consulting Physician Radiation Therapy 03/27/21 Geovanny Dominguez MD 740 [facility] [address] [place] [address] Surgeon Neurosurgery 05/21/21 Rudolph Dillard MD [address] [address] Consulting Physician Medical Oncology 09/22/21 Abdiel Vargas, SUPERVISOR SHOP 800 [facility] 134 [place] [address] Nurse Practitioner Internal Medicine 04/09/22 Rodney Maria MD [address] [address] [place] [address] Referring Physician 11/14/24 Brian Flores MD 800 [place] [address] Consulting Physician Cardiology 11/14/24 documented as of this encounter
--- OUTSIDE RECORDS SUMMARY | 2025-02-26 14:25 | XMS_ITS ---
Author Organization [facility] Address [address] [place] [address] Care Team Providers Care Signal Apprentice Name Role Phone Wan Santoro MD Primary Care Provider Dalton Hurley MD Unavailable [phone] Geovanny Dominguez MD Unavailable Rudolph Dillard MD Unavailable [phone] Abdiel Vargas APRN Unavailable [phone] Rodney Maria MD Unavailable [phone] Brian Flores MD Unavailable [phone] Active Problems Problem Noted Date Diagnosed Date [...] Automatic Entry Manual Entr y Fluoro Time 10.3 minutes 0.4 minutes 9.9 minutes Air Kerma 279.85 mGy 2.85 mGy 277 mGy Air Kerma Area Product 29,939 Gy-cm2 0 Gy-cm2 29,9 39 Gy-cm2 Resolved Problems Problem Noted Date Diagnosed Date Resolved Date Brain metabolic disorder 02/11/202109/2020 MRI of brain abnormal 02/11/20212020
--- OUTSIDE RECORDS SUMMARY | 2025-02-26 14:25 | XMS_ITS | Encounter Summary ---
Author Organization [facility] Address [address] [place] [address] Care Team Providers Care Grants Analyst Name Role Phone Wan Santoro MD Primary Care Provider [phone] Dalton Hurley MD Unavailable [phone] Geovanny Dominguez MD Unavailable [phone] Rudolph Dillard MD Unavailable [phone] Abdiel Vargas APRN Unavailable [phone] Rodney Maria MD Unavailable [phone] Brian Flores MD Unavailable [phone] Encounter Details Date Type Department Care Team [...] Medical Office Building Echo Lab [address] [facility], [address] [place] [address] 03/06/2025 11:30 AM EDT Office Visit [facility] [place] [address] [facility], [address] [place] [address] Dian Yancey PA 800 [place] [address] 03/26/2025 11:10 AM EDT Office Visit Medical Office Building Surgery Spine & Joint [address] [facility], [address] [place] [address] Abdelrahman Betancur MD 125 E [facility] 201 [place] [address] 04/02/2025 9:40 AM EDT Appointment [facility] Radiology 1000 [place] [address] 04/02/2025 10:45 AM EDT Appointment [facility] Radiology [address] [place] [address] 04/02/2025 1:15 PM EDT Clinical Support Pav CC Head, Neck & Respiratory 800 [facility] 2nd [place] [address] 04/02/2025 1:40 PM EDT Office Visit Pav [facility] Head, Neck & Respiratory [address] [address] Rudolph Dillard MD [address] [address] 04/08/2025 7:30 AM EDT Hospital Encounter PAV S Operating Room [address] [place] [address] Abdelrahman Betancur MD 125 [address] [facility] 201 [place] [address] 04/08/2025 7:30 AM EDT - 04/08/2025 10:15 AM EDT Surgery PAV S Operating Room [address] [place] [address] Abdelrahman Betancur MD 125 E [facility] 201 [place] [address] ARTHROPLASTY, HIP, TOTAL, ANTERIOR APPROACH [88817 (CPT )] 04/23/2025 11:00 AM EDT Office Visit Medical Office Building Surgery Spine & Joint 125 [address] [facility], [address] [place] [address] Renetta Stoner PA 125 [address] [facility] 201 [place] [address] 05/21/2025 11:10 AM EST Office Visit Medical Office Building Surgery Spine & Joint [address] [facility], [address] [place] [address] Abdelrahman Betancur MD 125 [address] [facility] 201 [place] [address] 01/08/2026 2:00 PM EDT Appointment Medical Office Building Cardiac Diagnostic Testing Medical Office Building Echo Lab 125 [address] [facility], [address] [place] [address] 01/08/2026 3:00 PM EDT Office Visit [facility] [place] 125 [address] [facility], [address] [place] [address] Dian Yancey PA [address] [place] [address] Scheduled Procedures Name Priority Associated Diagnoses [...] documented as of this encounter Care Teams Grants Analyst Relationship Specialty Start Date End Date Wan Santoro MD [address] [place] [address] PCP - General 01/20/21 Dalton Hurley MD 800 [facility] [address] [place] [address] Consulting Physician Radiation Therapy 03/27/21 Geovanny Dominguez MD 740 [facility] [address] [place] [address] Surgeon Neurosurgery 05/21/21 Rudolph Dillard MD [address] [address] Consulting Physician Medical Oncology 09/22/21 Abdiel Vargas, SCHEDULE ANALYST 800 [facility] 134 [place] [address] Nurse Practitioner Internal Medicine 04/09/22 Rodney Maria MD [address] [address] [place] [address] Referring Physician 11/14/24 Brian Flores MD 800 [place] [address] Consulting Physician Cardiology 11/14/24 documented as of this encounter
--- OUTSIDE RECORDS SUMMARY | 2025-02-26 14:25 | XMS_ITS | Encounter Summary ---
Author Organization [facility] Address [address] [place] [address] Care Team Providers Care Crab Steamer Name Role Phone Wan Santoro MD Primary Care Provider [phone] Dalton Hurley MD Unavailable [phone] Geovanny Dominguez MD Unavailable [phone] Rudolph Dillard MD Unavailable [phone] Abdiel Vargas APRN Unavailable [phone] Rodney Maria MD Unavailable [phone] Brian Flores MD Unavailable [phone] Reason for Referral * Consultation (Routine) - Authorized Specialty Diagnoses / Procedures Referred By [place] Referred To Contact Physical Therapy Diagnoses Arthritis of right hip Abdelrahman Betancur MD 125 E [facility] 201 [place] [address] Phone: tel: fax: Referral ID Status Reason Start Date Expiration Date Visits Requested Visits Authorized [id number] Authorized Consult and Treat 01/25/2025 07/27/2026 1 1 Scheduling Instructions THIS IS A GENERIC REFERRAL FOR SCHEDULING PURPOSES ONLY. PATIENT WILL BRING POST OP REFERRAL TO FIRST APPOINTMENT Encounter Details Date Type Department Care Team ([facility] st Contact Info) Description 01/25/2025 Orders Only Medical Office Building Surgery Spine & Joint [address] [facility], [address] [place] [address] Abdelrahman Betancur MD 125 E [facility] 201 [place] [address] Arthritis of right hip (Primary [...] Building Echo Lab [address] [facility], [address] [place] [address] 03/06/2025 11:30 AM EDT Office Visit [facility] [place]millan [address] [facility], [address] [place] [address] Dian Yancey PA [address] [place] [address] 03/26/2025 11:10 AM EDT Office Visit Medical Office Building Surgery Spine & Joint [address] [facility], [address] [place] [address] Abdelrahman Betancur MD 125 [address] [facility] 201 [place] [address] 04/02/2025 9:40 AM EDT Appointment [facility] G Radiology [address] [place] [address] 04/02/2025 10:45 AM EDT Appointment [facility] G Radiology [address] [place] [address] 04/02/2025 1:15 PM EDT Clinical Support Pav CC Head, Neck & Respiratory 800 [facility], 2nd [place] [address] 04/02/2025 1:40 PM EDT Office Visit Pav CC Head, Neck & Respiratory 800 [facility], [address]nd [place] [address] Rudolph Dillard MD [address] [address] 04/08/2025 7:30 AM EDT Hospital Encounter PAV S Operating Room [address] [place] [address] Abdelrahman Betancur MD [address] [place] [address] 04/08/2025 7:30 AM EDT - 04/08/2025 10:15 AM EDT Surgery PAV S Operating Room 310 [place] [address] Abdelrahman Betancur MD [address] [place] [address] ARTHROPLASTY, HIP, TOTAL, ANTERIOR APPROACH [02098 (CPT )] 04/23/2025 11:00 AM EDT Office Visit Medical Office Building Surgery Spine & Joint [address] [place] [address] Renetta Stoner PA [address] [place] [address] 05/21/2025 11:10 AM EST Office Visit Medical Office Building Surgery Spine & Joint [address] [place] [address] Abdelrahman Betancur MD [address] [place] [address] 01/08/2026 2:00 PM EDT Appointment Medical Office Building Cardiac Diagnostic Testing Medical Office Building Echo Lab [address] [facility], [address] [place] [address] 01/08/2026 3:00 PM EDT Office Visit [facility] [place] [address] [facility], [address] [place] [address] Dian Yancey PA 800 [place] [address] Scheduled Procedures Name Priority Associated [...] ed Goal Care Plan Autogenerated Problem No MakenziecarlosLatisha yepez Karlene documented as of this encounter Visit Diagnoses Diagnosis Arthritis of right hip- Primary Arthritis of right hip documented [...] documented as of this encounter Care Teams Crab Steamer Relationship Specialty Start Date End Date Wan Santoro MD 1210 [facility] [address] [place] [address] PCP - General 01/20/21 Dalton Hurley MD 800 [facility] [address] [place] [address] Consulting Physician Radiation Therapy 03/27/21 Geovanny Dominguez MD [address] [place] [address] Surgeon Neurosurgery 05/21/21 Rudolph Dillard MD [address] [address] Consulting Physician Medical Oncology 09/22/21 Abdiel Vargas, GLOBAL PROGRAM MANAGER [address] [facility] [address] [place] [address] Nurse Practitioner Internal Medicine 04/09/22 Rodney Maria MD 1210 [place] [address] Referring Physician 11/14/24 Brian Flores MD 800 [place] [address] Consulting Physician Cardiology 11/14/24 documented as of this encounter
--- OUTSIDE RECORDS SUMMARY | 2025-02-26 14:25 | XMS_ITS | Encounter Summary ---
Author Organization [facility] Address [address] [place] [address] Care Team Providers Care Toolroom Attendant Name Role Phone Wan Santoro MD Primary Care Provider [phone] Dalton Hurley MD Unavailable [phone] Geovanny Dominguez MD Unavailable [phone] Rudolph Dillard MD Unavailable Abdiel Vargas APRN Unavailable [phone] Rodney Maria MD Unavailable [phone] Brian Flores MD Unavailable [phone] Encounter Details Date Type Department Care Team (Late st Contact Info) Description 01/04/2025 Orders Only Medical Office Building Surgery Spine & Joint 125 [address] [facility], [address] [place] [address] Abdelrahman Betancur MD [address] [place] [address] Social History Tobacco Use Types [...] Upcoming Encounters Date Type Department Care Team ([facility] st Contact Info) Description 03/06/2025 10:00 AM EDT Appointment Medical Office Building Cardiac Diagnostic Testing Medical Office Building Echo Lab [address] [facility], [address] [place] [address] 03/06/2025 11:30 AM EDT Office Visit [facility] [place] [address] [facility], [address] [place] [address] Dian Yancey PA 800 [place] [address] 03/26/2025 11:10 AM EDT Office Visit Medical Office Building Surgery Spine & Joint [address] [facility], [address] [place] [address] Abdelrahman Betancur MD 125 E [facility] 201 [place] [address] 04/02/2025 9:40 AM EDT Appointment [facility] Radiology [address] [place] [address] 04/02/2025 10:45 AM EDT Appointment [facility] Radiology [address] [place] [address] 04/02/2025 1:15 PM EDT Clinical Support Pav CC Head, Neck & Respiratory 800 [facility], 2nd [place] [address] 04/02/2025 1:40 PM EDT Office Visit Pav CC Head, Neck & Respiratory 800 [facility], 2nd [place] [address] Rudolph Dillard MD [address] [address] 04/08/2025 7:30 AM EDT Hospital Encounter PAV S Operating Room [address] [place] [address] Abdelrahman Betancur MD 125 [address] [facility] 201 [place] [address] 04/08/2025 7:30 AM EDT - 04/08/2025 10:15 AM EDT Surgery PAV S Operating Room [address] [place] [address] Abdelrahman Betancur MD 125 [address] [facility] 201 [place] [address] ARTHROPLASTY, HIP, TOTAL, ANTERIOR APPROACH [92401 (CPT )] 04/23/2025 11:00 AM EDT Office Visit Medical Office Building Surgery Spine & Joint [address] [facility], [address] [place] [address] Renetta Stoner PA 125 [address] [facility] 201 [place] [address] 05/21/2025 11:10 AM EST Office Visit Medical Office Building Surgery Spine & Joint [address] [facility], [address] [place] [address] Abdelrahman Betancur MD 125 [address] [facility] 201 [place] [address] 01/08/2026 2:00 PM EDT Appointment Medical Office Building Cardiac Diagnostic Testing Medical Office Building Echo Lab [address] [facility], [address] [place] [address] 01/08/2026 3:00 PM EDT Office Visit [facility] [place] [address] [facility], [address] [place] [address] Dian Yancey PA 800 [place] [address] Scheduled Procedures Name Priority Associated [...] documented as of this encounter Care Teams Toolroom Attendant Relationship Specialty Start Date End Date Wan Santoro MD 1210 [facility] [address] [place] [id number] PCP - General 01/20/21 Dalton Hurley MD 800 [facility] [address] [place] [address] Consulting Physician Radiation Therapy 03/27/21 Geovanny Dominguez MD [address] [place] [address] Surgeon Neurosurgery 05/21/21 Rudolph Dillard MD [address] [address] Consulting Physician Medical Oncology 09/22/21 Abdiel Vargas APRN 800 [facility] [address] [place] [address] Nurse Practitioner Internal Medicine 04/09/22 Rodney Maria MD [address] [address] Referring Physician 11/14/24 Brian Flores MD [address] [place] [address] Consulting Physician Cardiology 11/14/24 documented as of this encounter
--- OUTSIDE RECORDS SUMMARY | 2025-02-26 14:25 | XMS_ITS | Encounter Summary ---
Author Organization [facility] Address [address] [place] [address] Care Team Providers Care Allied Health Instructor Name Role Phone Wan Santoro MD Primary Care Provider [phone] Dalton Hurley MD Unavailable [phone] Geovanny Dominguez MD Unavailable [phone] Rudolph Dillard MD Unavailable [phone] Abdiel Vargas APRN Unavailable [phone] Rodney Maria MD Unavailable [phone] Brian Flores MD Unavailable [phone] Encounter Details Date Type Department Care Team (Late st Contact Info) Description 01/26/2021 Lab Requisition [facility] [address] [place] [address] Rudolph Dillard MD [address] [address] Other nonspecific abnormal finding of [...] Medical Office Building Echo Lab [address], [address] [place] [address] 03/06/2025 11:30 AM EDT Office Visit [facility] [place] [facility] [address], [address] [place] [address] Dian Yancey PA [address] [place] [address] 03/26/2025 11:10 AM EDT Office Visit Medical Office Building Surgery Spine & Joint [address], [address] [place] [address] Abdelrahman Betancur MD [address] [address] 04/02/2025 9:40 AM EDT Appointment [facility] [address] [place] [phone] 04/02/2025 10:45 AM EDT Appointment [facility] [address] [place] [phone] 04/02/2025 1:15 PM EDT Clinical Support [facility] [address] [facility] [place] [address] 04/02/2025 1:40 PM EDT Office Visit [facility] [address] [facility] [place] [address] Rudolph Dillard MD [address] [phone] 04/08/2025 7:30 AM EDT Hospital Encounter [facility] Operating Room [address] [place] [phone] Abdelrahman Betancur MD [address] [facility] [address] [place] [address] 04/08/2025 7:30 AM EDT - 04/08/2025 10:15 AM EDT Surgery [facility] Operating Room [address] [place] [address] Abdelrahman Betancur MD [address] [facility] [address] [place] [address] ARTHROPLASTY, HIP, TOTAL, ANTERIOR APPROACH [65074 (CPT )] 04/23/2025 11:00 AM EDT Office Visit Medical Office Building Surgery Spine & Joint [address], [address] [place] [phone] Renetta Stoner PA [address] [facility] [address] [place] [address] 05/21/2025 11:10 AM EST Office Visit Medical Office Building Surgery Spine & Joint [address], [address] [place] [address] Abdelrahman Betancur MD [address] [facility] [address] [place] [phone] 01/08/2026 2:00 PM EDT Appointment Medical Office Building Cardiac Diagnostic Testing Medical Office Building Echo Lab [address], [address] [place] [phone] 01/08/2026 3:00 PM EDT Office Visit [facility] [place] [facility] [address], [address] [place] [address] Dian Yancey PA [address] [place] [address] Scheduled Procedures Name Priority Associated [...] EDT) Case Report Sugical Pathology Consult Case: [id number] Authorizing Provider: Rudolph Dillard MD Collected: 01/26/2021 1053 Ordering Location: [facility] Lab Received: 01/26/2021 1053 Pathologist: Fay Eagle MD Specimen: Lung, OU [id number] 01/26/2021 3:49 PM EDT [facility] Final Diagnosis A. LUNG, left upper lobe, mass, biopsy ([id number] A1- A2; collection date 01/12/2021): - benign bronchial epithelium and mucosa; See NOTE. - Negative for malignancy - no lung parenchyma identified to evaluate 01/26/2021 3:49 PM EDT [facility] at 1549 EDT Comment Sampling artifact cannot be excluded. Correlation with concurrent outside cytology, [id number] is suggested. 01/26/2021 3:49 PM EDT [facility]ALTHCARE LAB Clinical Information Left upper lobe lung masses with adenopathy, nonsmoker 01/26/2021 3:49 PM EDT [facility]ALTHCARE LAB Gross Description A. OU [id number] Received along with a corresponding pathology report from [facility]ology [facility] Cytology Laboratory are 6 slide(s) labeled outside case: [id number] collected on 01/12/2021. 01/26/2021 3:49 PM EDT [facility] Tissue Lung structure / Unknown 01/26/2021 10:53 AM EDT 01/26/2021 10:53 AM EDT us Rudolph Dillard MD LAB PATHOLOGY ORDERABLES Final Result [facility] [address] [place] [address] documented in this encounter Visit Diagnoses Diagnosis Other nonspecific abnormal finding of lung field Arthritis of right hip documented in this encounter Care Teams Allied Health Instructor Relationship Specialty Start Date End Date Wan Santoro MD [address] [place], [place] [id number] [address] [place] [address] PCP - General 01/20/21 Dalton Hurley MD [address] [facility] [address] [place] [address] Consulting Physician Radiation Therapy 03/27/21 Geovanny Dominguez MD [address] [facility] [address] [place] [address] Surgeon Neurosurgery 05/21/21 Rudolph Dillard MD [address] [address] Consulting Physician Medical Oncology 09/22/21 Abdiel Vargas, [employer]IT TRUST MANAGER 800 [facility] [address] [place] [address] Nurse Practitioner Internal Medicine 04/09/22 Rodney Maria MD [address] [address] Referring Physician 11/14/24 Brian Flores MD [address] [place] [address] Consulting Physician Cardiology 11/14/24 documented as of this encounter
--- OUTSIDE RECORDS SUMMARY | 2025-02-26 14:25 | XMS_ITS | Clinical Summary ---
Author Organization [facility] Address [address] [place] [address] Care Team Providers Care Engineering Laboratory Technician Name Role Phone Wan Santoro MD Primary Care Provider [phone] Dalton Hurley MD Unavailable [phone] Geovanny Dominguez MD Unavailable [phone] Rudolph Dillard MD Unavailable [phone] Abdiel Vargas APRN Unavailable [phone] Rodney Maria MD Unavailable [phone] Brian Flores MD Unavailable [phone] Allergies No known active allergies Medications lisinopril-hyd roCHLOROthiazi de 20-12.5 MG tablet Take 2 tablets by [...] mouth daily. 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 30 tablet 2 5 Active traMADol (Ultram) 50 MG tablet Take 1 tablet by mouth every 4 hours as needed for severe pain. 60 tablet 5 Active Additional Information Patient not taking.Reported on 02/26/2025 gabapentin (Neurontin) 100 MG capsule Take 1 capsule by mouth 3 times a day. If this medication makes you drowsy you may take it only at bedtime 30 capsule 5 Active Additional Information Patient not taking.Reported on 02/26/2025 oxyCODONE (Roxicodone) 5 MG immediate release tablet Take 1 tablet by mouth every 6 hours as needed for severe pain. 30 tablet 5 Active Additional Information Patient not taking.Reported on 02/26/2025 naloxone (Narcan) 4 mg/0.1 mL nasal spray 1. Give 1 spray in nostril for no/slow breathing or cannot wake after opioid use 2. Call 911 3. Repeat in other nostril if symptoms continue 1 each 5 Active acetaminophen (Tylenol Extra Strength) 500 MG tablet Take 2 tablets by mouth every 8 hours. 100 tablet 5 Active aspirin 81 MG EC tablet Take 1 tablet by mouth 2 times a day for 28 days. For 4 weeks post-op for blood clot prevention 56 tablet 5 025 Active docusate sodium (Colace) 250 MG capsule Take 1 capsule by mouth 2 times a day. 60 capsule 5 025 Active omeprazole (PriLOSEC) [address] capsule Take 1 capsule by mouth daily for 28 days. Do not crush or chew. 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 30 tablet 5 5 025 Discontinu ed(Reorder ) cefadroxil (Duricef) 500 MG capsuleIndicat ions:Arthritis of left hip Take 1 capsule by mouth 2 times a day for 7 days. To prevent post-op infection 14 capsule 5 025 tranexamic acid (Lysteda) 650 MG tablet tablet Take 1 tablet by mouth 3 times a day for 3 days. 9 tablet 5 025 Active Problems Problem Noted Date Diagnosed Date [...] Encounters Date Type Department Care Team Description 02/26/2025 11:20 AM EDT Office Visit Medical Office Building Surgery Spine & Joint [address] [facility], [address] [place] [address] Renetta Stoner PA S/P total left hip arthroplasty (Primary Dx) 02/26/2025 Travel 02/11/2025 11:30 AM EDT - 02/11/2025 2:05 PM EDT Surgery P[facility] S Operating Room [address] [place] [address] Abdelrahman Betancur MD ARTHROPLASTY, HIP, TOTAL, ANTERIOR APPROACH [62602 (CPT )] 02/11/2025 11:28 AM EDT Anesthesia Event [facility] Operating Room [address] [place] [address] Felipe Gómez MD Patel, Tarang R, CRNA 02/11/2025 7:40 AM EDT - 02/12/2025 2:57 PM EDT Hospital Encounter [facility] Inpatient [address] [place] [address] Abdelrahman Betancur MD Arthritis of left hip Discharge Disposition: Home or Self Care 02/11/2025 Travel 02/04/2025 Travel 02/01/2025 Telephone Medical Office Building Surgery Spine & Joint [address] [facility], [address] [place] [address] Abdelrahman Betancur MD 01/28/2025 Refill Pav [facility] Head, Neck & Respiratory [address] [facility] 2nd [place] [address] Rudolph Dillard MD NSCLC metastatic to brain ([facility]) 01/25/2025 Orders Only Medical Office Building Surgery Spine & Joint [address] [facility], [address] [place] [address] Abdelrahman Betancur MD Arthritis of right hip (Primary Dx) 01/23/2025 3:30 PM EDT Pre-Admission Testing [facility] S Anesthesia [address] [place] [address] 01/23/2025 Travel 01/04/2025 Orders Only Medical Office Building Surgery Spine & Joint [address] [facility], [address] [place] [address] Abdelrahman Betancur MD 01/01/2025 Telephone Medical Office Building Surgery Spine & Joint [address] [facility], [address] [place] [address] Abdelrahman Betancur MD 12/28/2024 Travel 12/27/2024 10:00 AM EDT - 12/27/2024 12:00 PM EDT Surgery Cardiac Physician President [address] [place] [address] Brian Flores MD TAVR [44721 (CPT )] 12/27/2024 9:54 AM EDT Anesthesia Event Cardiac Physician President [address] [place] [address] Glynn Bella MD Bliss, Emily G, MD 12/27/2024 8:00 AM EDT - 12/28/2024 1:15 PM EDT Hospital Encounter PAV H Inpatient [address] [place] [address] Brian Flores MD S/P TAVR (transcatheter aortic valve replacement) (Primary Dx); Nonrheumatic aortic valve stenosis Discharge Disposition: Home or Self Care 12/27/2024 Travel 12/24/2024 Telephone Pav CC Head, Neck & Respiratory [address] [facility] [place] [address] Juancarlos Bla RN 12/20/2024 Travel 12/11/2024 2:40 PM EDT Office Visit Pav CC Head, Neck & Respiratory [address] [facility] [place] [address] Rudolph Dillard MD 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) (Primary Dx); Adenocarcinoma of left lung (CMS/HCC); Severe aortic stenosis; Arthritis of right hip; Encounter for antineoplastic chemotherapy 12/11/2024 1:56 PM EDT - 12/11/2024 11:59 PM EDT Hospital Encounter [facility] G Radiology [address] [place] [address] 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); Adenocarcinoma of left lung (CMS/HCC) Discharge Disposition: Home or Self Care 12/11/2024 12:21 PM EDT - 12/11/2024 1:55 PM EDT Hospital Encounter PAV A Radiology [address] [place] [address] 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); Adenocarcinoma of left lung (CMS/HCC) Discharge Disposition: Home or Self Care 12/11/2024 11:30 AM EDT Clinical Support Pav CC Head, Neck & Respiratory [address] [facility] [place] [address] 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); Encounter for antineoplastic chemotherapy; Adenocarcinoma of left lung (CMS/HCC) 12/11/2024 Orders Only Pav CC Head, Neck & Respiratory [address] [facility] [place] [address] Juancarlos Bal RN 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) (Primary Dx); Encounter for antineoplastic chemotherapy; Adenocarcinoma of left lung (CMS/HCC) 12/11/2024 Travel 12/04/2024 Episode Changes [facility] Hollis [place]ito [address] [place] [address] Therese Barrow from Last 3 Months Immunizations Immunization Administration Dates Next Due Tdap 12/02/2021 Family History Medical History Relation Name Comments [...] Pulse 91 02/26/2025 11:29 AM EDT Temperature 36.3 C (97.4 F) 02/12/2025 11:16 AM EDT Respiratory Rate 16 02/12/2025 11:1 6 AM EDT Oxygen Saturation 98% 02/26/2025 11: 29 AM EDT Inhaled Oxygen Concentration - - Weight 82.9 kg (182 lb 12.2 oz) 025 11:29 AM EDT Height 165.1 cm (5' 5 ) 02/26/2025 11:2 9 AM EDT Body Mass Index 30.41 02/26/2025 11:29 AM EDT Plan of Treatment Upcoming Encounters Date Type Department Care Team (Late st Contact Info) Description 03/06/2025 10:00 AM EDT Appointment Medical Office Building Cardiac Diagnostic Testing Medical Office Building Echo Lab [address] [facility], [address] [place] [address] 03/06/2025 11:30 AM EDT Office Visit [facility] [place] [address] [facility], [address] [place] [address] Dian Yancey PA [address] [place] [address] [place] [address] 03/26/2025 11:10 AM EDT Office Visit Medical Office Building Surgery Spine & Joint [address] [facility], [address] [place] [address] Abdelrahman Betancur MD [address] [facility] [address] [place] [address] 04/02/2025 9:40 AM EDT Appointment [facility] Radiology [address] [place] [address] 04/02/2025 10:45 AM EDT Appointment [facility] Radiology [address] [place] [address] 04/02/2025 1:15 PM EDT Clinical Support Pav CC Head, Neck & Respiratory [address] [facility] [place] [address] 04/02/2025 1:40 PM EDT Office Visit Pav CC Head, Neck & Respiratory [address] [facility] [place] [address] Rudolph Dillard MD [address] [address] 04/08/2025 7:30 AM EDT Hospital Encounter PAV S Operating Room [address] [place] [address] Abdelrahman Betancur MD [address] [address] 04/08/2025 7:30 AM EDT - 04/08/2025 10:15 AM EDT Surgery PAV S Operating Room [address] [place] [address] Abdelrahman Betancur MD [address] [facility] [address] [place] [address] ARTHROPLASTY, HIP, TOTAL, ANTERIOR APPROACH [[id number] (CPT )] 04/23/2025 11:00 AM EDT Office Visit Medical Office Building Surgery Sp[facility] & Joint [address], [address] [place] [address] Renetta Stoner PA [address] [place] [address] 05/21/2025 11:10 AM EST Office Visit Medical Office Building Surgery Sp[facility] & Joint [address], [address] [place] [address] Abdelrahman Betancur MD [address] [place] [address] 01/08/2026 2:00 PM EDT Appointment Medical Office Building Cardiac Diagnostic Testing Medical Office Building Echo Lab [address] [facility], [address] [place] [address] 01/08/2026 3:00 PM EDT Office Visit [facility] A [address], [address] [place] [address] Dian Yancey PA [address] [place] [address] Scheduled Procedures Name Priority Associated Diagnoses Date/Ti me ARTHROPLASTY, HIP, TOTAL, ANTERIOR APPROACH Arthritis of right hip 04/08/2025 7:30 AM EDT Health Maintenance Due Date Last Done Comments [facility]-Bone Density Scan 1955 [facility]-Hepatitis C Screening 1955 [facility]-Medicare Annual Wellness (AWV) 1955 [facility]-Infant/Child/Adol SDOH Screenings 1955 DAY-SGHJP-09 Vaccine (#1) 09/18/1959 [facility]- SDOH Screenings 1972 [...] Tdap) 12/03/2031 12/02/2021 [facility]-Obesity Intervention Completed 025, 01/04/2025, 11/22/2024, Additional history exists HPV Vaccines Aged Out [...] Care Plan Autogenerated Problem No Latisha Sun Medical Devices Implanted Type Area [place] [employer] Device Identifier Shelf Expiration Date Model / Serial / Lot Valve Kit Kerry 3 Ultra Tavr 23mm - [id number] - [id number] Implanted:Qty: 1 on 12/27/2024 by Brian Flores MD at [facility]-[id number] 07/30/2027 [id number] / [id number] / [id number] Chg Shell R3 3 Hole Acet 50mm - [id number] Implanted:Qty: 1 on 02/11/2025 by Abdelrahman Betancur MD at [facility] Left: Hip [employer]-[id number] 06/16/2034 [id number] / / [id number] Liner Or3o Dual Mbility 38 50 - [id number] Implanted:Qty: 1 on 02/11/2025 by Abdelrahman Betancur MD at [facility] Left: Hip [employer]-[id number] 07/29/2034 [id number] / / [id number] Chg Screw Ref Spher Head 35mm - [id number] Implanted:Qty: 1 on 02/11/2025 by Abdelrahman Betancur MD at [facility] Left: Hip [employer]-[id number] 09/22/2034 [id number] / / [id number] Chg Screw Ref Spher Head 25mm - [id number] Implanted:Qty: 1 on 02/11/2025 by Abdelrahman Betancur MD at [facility] Left: Hip [employer]-[id number] 05/05/2034 [id number] / / [id number] Liner Or3o Dual Mbility Xlpe 28/38 - [id number] Implanted:Qty: 1 on 02/11/2025 by Abdelrahman Betancur MD at [facility] Left: Hip [employer]-[id number] 09/06/2034 [id number] / / [id number] Hip Plus Sl Integr Monika Schaft W.Ti.Mejía 6 6 - [id number] Implanted:Qty: 1 on 02/11/2025 by Abdelrahman Betancur MD at [facility] Left: Hip [employer]-[id number] 05/13/2028 [id number] / / [id number] Chg Head Oxinium Fem 06/30 28m - [id number] Implanted:Qty: 1 on 02/11/2025 by Abdelrahman Betancur MD at [facility] Left: Hip [employer]-[id number] 10/13/2034 [id number] / / [id number] Procedures Procedure Name Priority Date/Time Associated Diagnosis Comments CBC W/O DIFFERENTIAL Routine 02/12/2025 3:48 AM EDT XR HIP LEFT 2 OR 3 VIEWS STAT 02/11/2025 1:43 PM EDT FL LESS THAN 1 HOUR (NON-REPORTABLE) Routine 02/11/2025 12:46 PM EDT SURGICAL PATHOLOGY EXAM Routine 02/11/2025 12:37 PM EDT Arthritis of left hip PB ANESTHESIA PLACEHOLDER Routine 02/11/2025 11:38 AM EDT WV AN ELECTIVE ENDOTRACHEAL AIRWAY Routine 02/11/2025 11:38 AM EDT [place] TOTAL HIP ARTHROPLASTY 02/11/2025 11:13 AM EDT Arthritis of left hip ECHO, ADULT TRANSTHORACIC LIMITED W/ COLOR AND [...] antineoplastic chemotherapy Adenocarcinoma of left lung (CMS/HCC) from Last 3 Months Results * (ABNORMAL) CBC W/O Differential (02/12/2025 3:48 AM EDT) Only the most recent of4 resultswithin the time period is included. WBC Count 13.21(H) 3.70 - 10.30 10*3/uL LAB HEMATOLOGY METHOD 02/12/2025 3:54 AM EDT [facility] RBC Count 2.80(L) 3.90 - 5.20 10*6/uL LAB HEMATOLOGY METHOD 02/12/2025 3:54 AM EDT [facility] HGB 8.5(L) 11.2 - 15.7 g/dL LAB HEMATOLOGY METHOD 02/12/2025 3:54 AM EDT [facility] HCT 25.4(L) 34.0 - 45.0 % LAB HEMATOLOGY METHOD 02/12/2025 3:54 AM EDT [facility] Platelet Count 133(L) 155 - 369 10*3/uL LAB HEMATOLOGY METHOD 02/12/2025 3:54 AM EDT [facility] MCV 91 79 - 98 fL LAB HEMATOLOGY METHOD 02/12/2025 3:54 AM EDT [facility] MCH 30.4 26.0 - 32.0 pg LAB HEMATOLOGY METHOD 02/12/2025 3:54 AM EDT [facility] MCHC 33.5 30.7 - 35.5 g/dL LAB HEMATOLOGY METHOD 02/12/2025 3:54 AM EDT [facility] RDW 13.1 11.5 - 14.5 % LAB HEMATOLOGY METHOD 02/12/2025 3:54 AM EDT [facility] MPV 10.2 8.8 - 12.5 fL LAB HEMATOLOGY METHOD 02/12/2025 3:54 AM EDT [facility] nRBC 0.0 <=0.0 per 100 WBCs LAB HEMATOLOGY METHOD 02/12/2025 3:54 AM EDT [facility] Blood Venous blood specimen / Unknown Venipuncture / Unknown 02/12/2025 3:48 AM EDT 02/12/2025 3:52 AM EDT us Jackie BILL LAB BLOOD ORDERABLES Final Res ult Performing Organization Address City/State/[facility] Co de Phone Number [facility] [address] [place] [address] * XR Hip Left 2 or 3 [...] PM EDT) Case Report Surgical Pathology Case: [id number] Authorizing Provider: Abdelrahman Betancur MD Collected: 02/11/2025 1237 Ordering Location: [facility] Operating Room Received: 02/11/2025 1432 Pathologist: Marielena Garay MD Specimen: Hip, Left, Femoral Head (gross only) 02/13/2025 3:33 PM EDT [facility] Final Diagnosis FEMORAL HEAD, EXCISION: -DEGENERATIVE JOINT DISEASE 02/13/2025 3:33 PM EDT [facility] at 1533 EDT Clinical Information Arthritis of left hip [M16.12] 02/13/2025 3:[address] [facility] Gross Description A. FEMORAL HEAD (GROSS [...] specimen is submitted for gross only. Terese Soler Unruly 02/13/2025 3:[address] [facility] Note: A resident was involved in the service. I attest I examined the relevant preparations for the specimens and confirmed the diagnosis or interpretation. 02/13/2025 3:33 PM EDT [facility] Bone Left hip region structure / Unknown 02/11/2025 12:37 PM EDT 02/11/2025 2:32 PM EDT Comment:Pre-op diagnosis: Arthritis of left hip [M16.12] us Abdelrahman Betancur MD LAB PATHOLOGY ORDERABLES Fin al Result [facility] [address] [place] [address] * WV AN ELECTIVE ENDOTRACHEAL AIRWAY, PB ANESTHESIA PLACEHOLDER [...] Additional Comments Atraumatic. No change to dentition. us Felipe Gómez MD ANESTHESIA ORDERABLES Final Re sult * ECHO, ADULT TRANSTHORACIC LIMITED W/ COLOR AND DOPPLER (12/28/2024 7:35 AM EDT) BSA 1.89 m2 OLEG ISCV Height 165.1 OLEG ISCV Weight 81.2 OLEG ISCV LVOT diam 21 mm OLEG ISCV LVOT AREA 3.5 cm2 OLEG ISCV LV V1 VTI 26.4 cm OLEG ISCV SV(LVOT) 91 mL OLEG ISCV LV V1 Vmax 134.0 cm/s OELG ISCV Ao V2 VTI 46.7 cm OLEG [...] * (ABNORMAL) Magnesium (12/28/2024 4:56 AM EDT) [facility] Magnesium, Plasma 1.6(L) 1.9 - 2.4 mg/dL 12/28/2024 5:[address] [facility] Blood Venous blood specimen / Unknown Venipuncture / Unknown 12/28/2024 4:56 AM EDT 12/28/2024 5:02 AM EDT Kaleb Bond APRN LAB BLOOD ORDERABLES Final Result [facility] [address] [place] [address] * Basic metabolic panel (12/28/2024 4:56 AM EDT) Only the most recent of3 resultswithin the time period is included. [facility] Glucose, Plasma 99 74 - 99 mg/dL 12/28/2024 5:[address] [facility] BUN, Plasma 20 8 - 23 mg/dL 12/28/2024 5:[address] [facility] Creatinine, Plasma 0.83 0.60 - 1.10 mg/dL 12/28/2024 5:[address] [facility] BUN/Creatinine Ratio 24 12/28/2024 5:[address] [facility] Sodium, Plasma 140 136 - 145 mmol/L 12/28/2024 5:[address] [facility] Potassium, Plasma 4.1 3.6 - 4.9 mmol/L 12/28/2024 5:[address] [facility] Chloride, Plasma 106 97 - 107 mmol/L 12/28/2024 5:[address] [facility] CO2, Plasma 23 22 - 29 mmol/L 12/28/2024 5:[address] [facility] Anion Gap 11 6 - 16 mmol/L 12/28/2024 5:[address] [facility] Total Calcium, Plasma 8.9 8.9 - 10.2 mg/dL 12/28/2024 5:[address] [facility] eGFRcr 75.9 mL/min/1.7 3m*2 12/28/2024 5:[address] [facility] Comment:Reported eGFRcr in m L/min/1.73m2 is based the CKD-EPI 2020 equation that does not use a race coefficient. Blood Venous blood specimen / Unknown Venipuncture / Unknown 12/28/2024 4:56 AM EDT 12/28/2024 5:02 AM EDT Kaleb Bond ENDOSCOPY RN LAB BLOOD ORDERABLES Final Result [facility] [address] [place] [address] * ECG Adult - POD#1 (12/28/2024 2:41 AM EDT) Only the most recent of2 resultswithin the time period is included. EKG DIAGNOSIS CLASS Abnormal MUSE ECG Ventricular Rate 85 BPM MUSE ECG Atrial Rate 85 BPM MUSE ECG WV Interval 150 ms MUSE ECG QRSD Interval 90 ms MUSE ECG QT Interval 386 ms MUSE ECG QTC Interval 459 ms MUSE ECG P [place] -1 degrees MUSE ECG R [place] -36 degrees MUSE ECG T Wave [place] 20 degrees MUSE ECG Diagnosis Normal sinus [...] is no recent study available for direct [id number]-[id number] comparison. Left Ventricle The left ventricle is [...] is no recent study available for direct rywx-oo-ulgn comparison. us Brian Flores MD CV ECHO [...] was obtained: 1) Right common femoral vein: 8-Uzbek short Terumo sheath 2) Right common femoral artery: 6-Uzbek short Terumo sheath 3) Left common femoral artery: 7-Uzbek short Terumo sheath The 6-Uzbek right common femoral arterial sheath was upsized to an 8-Uzbek sheath after 2 Preclose sutures were deployed. Heparin was given for a goal ACT>250. Antibiotics were given. The 8-Uzbek right femoral arterial sheath was upsized to the 14-Uzbek Zavala sheath over a Safari wire. A temporary pacemaker wire was advanced from the venous sheath to the right ventricular apex. Thresholds were tested and confirmed to be adequate. A 6-Uzbek angled pigtail catheter was inserted from the left common femoral arterial sheath to the right coronary cusp. An aortogram was performed to confirm the correct coplanar angle. The aortic valve was crossed from the E-sheath using an exchange-length J-tip wire and a 6-Uzbek AL1 diagnostic catheter. The AL1 catheter was removed and a 6- Uzbek angled pigtail catheter was advanced over the [...] * POCT ACT (12/27/2024 10:32 AM EDT) [facility] Signature ACT (Low Range) 336 65 - 400 seconds 01/21/2025 9:15 AM EDT [facility]ARE [facility] Corporate Strategy Analyst ID Bertha Franz 01/21/2025 9:15 AM EDT HEALTHCARE LAB ACT Device ID [id number] 01/21/2025 9:15 AM EDT [facility] LAB Comment 01/21/2025 9:[address] [facility] Comment: ACT performed by [...] UNSOLICITED RESULTS Final Result [facility] [address] LAB [address] [place] [address] * POCT creatinine (12/27/2024 8:29 AM EDT) Creatinine, Point of Care 1.0 0.6 - 1.1 mg/dL 12/27/2024 8:33 AM EDT [facility] POCT eGFR 61 mL/min/1. 73m*2 12/27/2024 8:33 AM EDT HEALTHCARE LAB Corporate Strategy Analyst ID Nela Perez 12/27/2024 8:33 AM EDT HEALTHCARE LAB Device ID [id number] 12/27/2024 8:33 AM EDT [facility]ALTH[facility]ARE LAB Comment 12/27/2024 8:[address] [facility] Comment:Testing performed on i-STAT at the point of care. Reported eGFRcr in mL/min/1.73m2 is based the CKD-EPI 2020 equation that does not use a race coefficient. Blood Venous blood specimen / Unknown 12/27/2024 8:29 AM EDT 12/27/2024 8:33 AM EDT us Brian Flores MD LAB POINT OF CARE TEST DOCKED DEVICE UNSOLICITED RESULTS Final Result [facility] [address] LAB [address] [place] [address] * N-Terminal Probnp (12/27/2024 8:24 AM EDT) N-Terminal, PROBNP, Plasma 348 0 - 899 pg/mL 12/27/2024 9:[address] [facility] Blood Venous blood specimen / Unknown Venipuncture / Unknown 12/27/2024 8:24 AM EDT 12/27/2024 8:34 AM EDT us Dat Dickson APRN LAB BLOOD ORDERABLES Final Result [facility] [address] [place] [address] * Type and Screen (12/27/2024 8:24 AM [...] TEST ORDERABLES Final Result Performing Organization Address [facility] de Phone Number BLOOD BANK [address] [place] [address], * CT Chest w IV Contrast (12/11/2024 [...] MD on 12/11/2024 3:10 PM Abdiel Vargas ENDOSCOPY RN IMG CT PROCEDURES Final Resul t * [...] error, please notify the sender immediately at [phone] and permanently delete the original report and destroy any copies or printouts. Narrative 12/12/2024 2:15 PM EDT [facility] - Phone Outpatient NAME: Priya Lynn DATE OF EXAM: 12/11/2024 Patient No: [id number] Physician: Kuldeep Date of : 1955 Past [...] Lynn DATE OF EXAM: 12/11/2024 Patient No: [id number] Physician: Kuldeep Date of : 1955 Past [...] in error, pleasenotify the sender immediately at [phone] and permanently delete theoriginal report and destroy any copies or printouts. us Abdiel Vargas ENDOSCOPY RN IMG MRI PROCEDURES Final Resu lt * [...] ult [facility] [address] [place] [address] * (ABNORMAL) Comprehensive Metabolic Panel, Plasma (12/11/2024 [...] [facility] [address] [place] [address] from Last 3 Months Additional Health Concerns Active Problems Noted Date Diagnosed Date Autogenerated Problem 01/01/2025 Insurance [facility] MEDICARE Advance Directives * Full Code (Latest Code Status on File) Date Activated Date Inactivated Comments 02/11/2025 2:03 PM 02/12/2025 5:02 PM Question Answer Comments I have reviewed the capacity from the link above and, if needed, have updated to appropriate status: Yes * Full Code Date Activated Date Inactivated Comments 12/27/2024 11:36 AM 12/28/2024 3:20 PM Question Answer Comments I have reviewed the capacity from the link above and, if needed, have updated to appropriate status: Yes Care Teams Engineering Laboratory Technician Relationship Specialty Start Date End Date Wan Santoro MD [address] [facility] [address] [place] [address] PCP - General 01/20/21 Dalton Hurley MD [address] [facility] [address] [place] [id number] Consulting Physician Radiation Therapy 03/27/21 Geovanny Dominguez MD [address] [facility] [address] [place] [address] Surgeon Neurosurgery 05/21/21 Rudolph Dillard MD [address] [phone] Consulting Physician Medical Oncology 09/22/21 Abdiel Vargas, ENDOSCOPY RN 800 [facility] [address] [place] [id number] Nurse Practitioner Internal Medicine 04/09/22 Rodney Maria MD [address] [place] [address] Referring Physician 11/14/24 Brian Flores MD [address] [place] [phone] Consulting Physician Cardiology 11/14/24
--- OUTSIDE RECORDS SUMMARY | 2025-02-26 14:25 | XMS_ITS | Encounter Summary ---
Author Organization [facility] Address [address] [place] [address] Care Team Providers Care Patcher Name Role Phone Wan Santoro MD Primary Care Provider [phone] Dalton Hurley MD Unavailable [phone] Geovanny Dominguez MD Unavailable [phone] Rudolph Dillard MD Unavailable [phone] Abdiel Vargas APRN Unavailable [phone] Rodney Maria MD Unavailable [phone] Brian Flores MD Unavailable [phone] Encounter Details Date Type Department Care Team ([facility] st Contact Info) Description 01/01/2025 Telephone Medical Office Building Surgery Spine & Joint [address] [facility], [address] [place] [address] Abdelrahman Betancur MD [address] [place] [address] Social History Tobacco Use Types [...] AM EDT Scheduled for surgery on 02/11/25 [facility]. * Telephone Encounter - Kala Haney RN - 01/01/2025 9:57 AM EDT Patient asked if her left hip could be performed before the right? documented in this encounter Plan of Treatment Upcoming Encounters Date Type Department Care Team (Late st Contact Info) Description 03/06/2025 10:00 AM EDT Appointment Medical Office Building Cardiac Diagnostic Testing Medical Office Building Echo Lab [address] [facility], [address] [place] [phone] 03/06/2025 11:30 AM EDT Office Visit [facility] [place] [address] [facility], [address] [place] [address] Dian Yancey PA [address] [place] [phone] 03/26/2025 11:10 AM EDT Office Visit Medical Office Building Surgery Spine & Joint [address], [address] [place] [address] Abdelrahman Betancur MD [address] [facility] [address] [place] [address] 04/02/2025 9:40 AM EDT Appointment [facility] [address] [place] [phone] 04/02/2025 10:45 AM EDT Appointment [facility] [address] [place] [phone] 04/02/2025 1:15 PM EDT Clinical Support [facility] [address] [facility], 2nd [place] [phone] 04/02/2025 1:40 PM EDT Office Visit [facility] [address] [facility], [address]nd [place] [address] Rudolph Dillard MD [address] [address] 04/08/2025 7:30 AM EDT Hospital Encounter [facility] S Operating Room [address] [place] [address] Abdelrahman Betancur MD [address] [place] [address] 04/08/2025 7:30 AM EDT - 04/08/2025 10:15 AM EDT Surgery [facility] S Operating Room [address] [place] [address] Abdelrahman Betancur MD [address] [place] [address] ARTHROPLASTY, HIP, TOTAL, ANTERIOR APPROACH [[id number] (CPT )] 04/23/2025 11:00 AM EDT Office Visit Medical Office Building Surgery Spine & Joint [address], [address] [place] [address] Renetta Stoner PA [address] [place] [address] 05/21/2025 11:10 AM EST Office Visit Medical Office Building Surgery Spine & Joint [address], [address] [place] [address] Abdelrahman Betancur MD [address] [place] [address] 01/08/2026 2:00 PM EDT Appointment Medical Office Building Cardiac Diagnostic Testing Medical Office Building Echo Lab [address] [facility], [address] [place] [address] 01/08/2026 3:00 PM EDT Office Visit [facility] [place] [address] [facility], [address] [place] [address] Dian Yancey PA 800 [place] [address] Scheduled Procedures Name Priority Associated [...] documented as of this encounter Care Teams Patcher Relationship Specialty Start Date End Date Wan Santoro MD [id number] [place] [address] PCP - General 01/20/21 Dalton Hurley MD 800 [facility] [address] [place] [address] Consulting Physician Radiation Therapy 03/27/21 Geovanny Dominguez MD [address] [facility] [address] [place] [address] Surgeon Neurosurgery 05/21/21 Rudolph Dillard MD [address] [address] Consulting Physician Medical Oncology 09/22/21 Abdiel Vargas, BIAS CUTTING MACHINE OPERATOR VERTICAL 800 [facility] [address] [place] [address] Nurse Practitioner Internal Medicine 04/09/22 Rodney Maria MD [address] [place] [address] Referring Physician 11/14/24 Brain Flores MD [address] [place] [address] Consulting Physician Cardiology 11/14/24 documented as of this encounter
== END 2025-02-25 23:59 | disposition home or self-care (01) ==
LOC: LAB.DROPOF 02-26 14:22
PROVIDERS: PCP Internal Medicine; Visit Provider Internal Medicine
DX: I10 Essential (primary) hypertension (principal); R60.9 Edema, unspecified
CPT/HCPCS: 80048

== ENCOUNTER 2025-03-14 13:00 | Outpatient (RCR) | payer MEDICARE, SELFPAY | END 2025-03-14 23:59 | disposition home or self-care (01) | LOC: PT 13:00 | PROVIDERS: PCP Internal Medicine; Visit Provider Orthopaedic Surgery Adult Reconstructive Orthopaedic Surgery | DX: M16.11 Unilateral primary osteoarthritis, right hip (principal) | CPT/HCPCS: 97110; 97530 ==

== ENCOUNTER 2025-04-04 13:00 | Outpatient (RCR) | payer MEDICARE, SELFPAY | END 2025-04-04 23:59 | disposition home or self-care (01) | LOC: PT 13:00 | PROVIDERS: PCP Internal Medicine; Visit Provider Orthopaedic Surgery Adult Reconstructive Orthopaedic Surgery | DX: M16.11 Unilateral primary osteoarthritis, right hip (principal) | CPT/HCPCS: 97110; 97530 ==

== ENCOUNTER 2025-04-15 13:05 | Outpatient (CLI) | payer MEDICARE, SELFPAY ==
--- OUTSIDE RECORDS SUMMARY | 2025-02-26 11:20 | XMS_ITS | Encounter Summary ---
Author Organization [facility] Address [address] [place] [address] Care Team Providers Care Director Title Name Role Phone Wan Santoro MD Primary Care Provider [phone] Dalton Hurley MD Unavailable [phone] Geovanny Dominguez MD Unavailable [phone] Rudolph Dillard MD Unavailable [phone] Abdiel Vargas APRN Unavailable [phone] Rodney Maria MD Unavailable [phone] Brian Flores MD Unavailable [phone] Reason for Visit * Reason Comments Post-op Encounter Details Date Type Department Care Team (Late st Contact Info) Description 02/26/2025 11:20 AM EDT Office Visit Medical Office Building Surgery Spine & Joint [address] [facility], [address] [place] [address] Renetta Stoner PA [address] [place] [address] S/P total left hip arthroplasty (Primary Dx) Social History Tobacco Use Types [...] Sign Reading Time Taken Comments Blood Pressure 137/67 02/26/2025 11:29 AM EDT Pulse 91 02/26/2025 11:29 AM EDT Temperature - - Respiratory Rate - - Oxygen Saturation 98% 02/26/2025 11: 29 AM EDT Inhaled Oxygen Concentration - - Weight 82.9 kg (182 lb 12.2 oz) 025 11:29 AM EDT Height 165.1 cm (5' 5 ) 02/26/2025 11:2 9 AM EDT Body Mass Index 30.41 02/26/2025 11:29 AM EDT documented in this encounter Miscellaneous Notes * Progress Notes - Renetta Stoner PA - 02/26/2025 11:20 AM EDT ID: Patient is a 69 year old female who presents for 2 week post-operative follow up s/p L anteriorTHA with Dr. Betancur. Subjective: Patient reports she is overall doing well and is pleased with her result. Endorses compliance with physical therapy as well as ASA for DVT prophylaxis. Pain is manageable with current medication regimen, does not request medication refill at this time. Objective: Left hip- Incision well approximated No warmth, erythema, or drainage from operative site Able to tolerate gentle ROM Ambulating with walker for assistance Neurovascular intact distally No evidence of DVT Assessment/plan: S/P L CLAY- 4x4 and tegaderm removed at today's visit, Prineo kept intact. Advised patient to continue physical therapy as well as DVT prophylaxis. Educated patient on signs of infection including warmth, erythema, or foul smelling drainage from operative site. Advised to not soak in any pools, hot t ubs or bathtubs at this time. She will return to clinic in 4 weeks with radiographs unless sooner indicated. documented in this encounter Plan of Treatment Upcoming Encounters Date Type Department Care Team (Late st Contact Info) Description 04/19/2025 8:15 AM EDT Hospital Encounter [facility] Operating Room [address] [place] [address] Abdelrahman Betancur MD [address] [place] [address] 04/19/2025 8:15 AM EDT - 04/19/2025 10:40 AM EDT Surgery [facility] S Operating Room [address] [place] [address] Abdelrahman Betancur MD [address] [place] [address] ARTHROPLASTY, HIP, TOTAL, ANTERIOR APPROACH [49475 (CPT )] 05/03/2025 9:00 AM EDT Office Visit Medical Office Building Surgery Spine & Joint [address], [address] [place] [address] Renetta Stoner PA [address] [place] [address] 06/04/2025 11:00 AM EST Office Visit Medical Office Building Surgery Spine & Joint [address], [address] [place] [address] Abdelrahman Betancur MD [address] [place] [address] 06/25/2025 12:10 PM EST Appointment [facility] [address], 2nd [place] [address] 06/25/2025 1:00 PM EST Appointment [facility] S Radiology [address], 1st [place] [address] 06/25/2025 2:15 PM EST Clinical Support [facility] [address] [facility], 2nd [place] [address] 06/25/2025 2:40 PM EST Office Visit [facility] [address] [facility], 2nd [place] [address] Rudolph Dillard MD [address] [facility] 2nd [place] [address] 01/08/2026 2:00 PM EDT Appointment Medical Office Building Cardiac Diagnostic Testing Medical Office Building Echo Lab [address] [facility], [address] [place] [address] 01/08/2026 3:00 PM EDT Office Visit [facility] [place] [address] [facility], [address] [place] [address] Dian Yancey PA [address] [place] [address] Scheduled Procedures Name Priority Associated Diagnoses Date/Ti me ARTHROPLASTY, HIP, TOTAL, ANTERIOR APPROACH Arthritis of right hip 04/19/2025 8:15 AM EDT documented as of this encounter Results * XR Pelvis 1 or 2 Views (03/26/2025 10:40 AM EDT) Anatomical Region Laterality Modality Body, Pelvis Digital Radiogra phy Impressions 03/26/2025 12:00 PM EDT Left hip replacement is noted. No obvious hardware complications. CRITICAL RESULT: No. COMMUNICATION: Per this written report. Drafted by Krishna Church MD on 03/26/2025 11:59 AM Final report signed by Krishna Church MD on 03/26/2025 12:00 PM Narrative 03/26/2025 12:00 PM EDT CLINICAL INDICATION: post op TECHNIQUE: XR PELVIS 1 OR 2 VIEWS COMPARISON: February 11, 2025. FINDINGS: Single AP view was provided. Overlying bowel gas and content limit the evaluation of the pelvis. Diffuse osteopenia. Left hip replacement is noted. No obvious hardware complications. Similar severe osteoarthritis in the right hip joint. Similar degenerative changes in the pubic symphysis, sacroiliac joints and lower lumbar spine. Surgical clips over the projection of pelvis. Procedure Note Krishna Ventura MD - 03/26/2025 CLINICAL INDICATION: post op TECHNIQUE: XR PELVIS 1 OR 2 VIEWS COMPARISON: February 11, 2025. FINDINGS: Single AP view was provided. Overlying bowel gas and content limit the evaluation of the pelvis. Diffuse osteopenia. Left hip replacement is noted. No obvious hardware complications. Similar severe osteoarthritis in the right hip joint. Similar degenerative changes in the pubic symphysis, sacroiliac joints andlower lumbar spine. Surgical clips over the projection of pelvis. IMPRESSION: Left hip replacement is noted. No obvious hardware complications. CRITICAL RESULT: No. COMMUNICATION: Per this written report. Drafted by Krishna Church MD on 03/26/2025 11:59 AM Final report signed by Krishna Church MD on 2:00 PM Renetta BILL IMG XR PROCEDURES Final Resul t documented in this encounter Visit Diagnoses Diagnosis S/P total left hip arthroplasty- Primary S/P total left hip arthroplasty Arthritis of right hip documented in this encounter Additional Health Concerns Assessment Noted Time PHQ-9 Depression Total Score: 0 10/30/19 25 12:42 PM EDT A fall risk assessment has been complete d for the patient 02/26/2025 11:30 AM EDT A Body Mass Index follow-up plan has been documented for the patient 02/26/2025 12:09 PM EDT documented as of this encounter Care Teams Director Title Relationship Specialty Start Date End Date Wan Santoro MD [address] [facility] [address] [place] [address] PCP - General 01/20/21 Dalton Hurley MD [address] [place], [place] [address] [place] [address] Consulting Physician Radiation Therapy 03/27/21 Geovanny Dominguez MD [address] [place] [address] Surgeon Neurosurgery 05/21/21 Rudolph Dillard MD [address] [address] Consulting Physician Medical Oncology 09/22/21 Abdiel Vargas, HARVEST WORKER [employer] 800 [facility] [address] [place] [address] Nurse Practitioner Internal Medicine 04/09/22 Rodney Maria MD [address] [address] Referring Physician 11/14/24 Brian Flores MD 800 [place] [address] Consulting Physician Cardiology 11/14/24 documented as of this encounter
--- OUTSIDE RECORDS SUMMARY | 2025-03-06 09:32 | XMS_ITS | Encounter Summary ---
Author Organization [facility] Address [address] [place] [address] Care Team Providers Care Automatic Shirring Machine Operator Name Role Phone Wan Santoro MD Primary Care Provider [phone] Dalton Hurley MD Unavailable [phone] Geovanny Dominguez MD Unavailable [phone] Rudolph Dillard MD Unavailable [phone] Abdiel Vargas APRN Unavailable [phone] Rodney Maria MD Unavailable [phone] Brian Flores MD Unavailable [phone] Reason for Referral * Imaging (Routine) - Closed Specialty Diagnoses / Procedures Referred By Contac t Referred To Contact Cardiology Diagnoses S/P TAVR (transcatheter aortic valve replacement) Procedures Echo, Adult Transthoracic Complete Dian Yancey PA 800 [place] [address] Phone: tel: fax: Referral ID Status Reason Start Date Expiration Date V isits Requested Visits Authorized [id number] Closed Perform Procedure 12/31/2024 07/02/2026 1 1 Reason for Visit * Imaging (Routine) - Closed Specialty Diagnoses / Procedures Referred By Contac t Referred To Contact Cardiology Diagnoses S/P TAVR (transcatheter aortic valve replacement) Procedures Echo, Adult Transthoracic Complete Dian Yancey PA [address] [place] [address] Phone: tel: fax: Referral ID Status Reason Start Date Expiration Date V isits Requested Visits Authorized [id number] Closed Perform Procedure 12/31/2024 07/02/2026 1 1 Encounter Details Date Type Department Care Team (Latest Contact Info) Description 03/06/2025 9:32 AM EDT - 03/06/2025 11:59 PM EDT Hospital Encounter Medical Office Building Cardiac Diagnostic Testing Medical Office Building Echo Lab [address] [facility], [address] [place] [address] S/P TAVR (transcatheter aortic valve replacement) Discharge Disposition: Home or Self Care Social History Tobacco Use Types Packs/Day Years Used Date Smoking Tobacco: Never Smokeless Tobacco: Never Alcohol Use Standard Drinks/Week Comments Never 0 (1 standard drink = 0.6 oz pur e alcohol) PHQ-2 Answer Date Recorded Patient Health Questionnaire-2 Score 0 03/06/2025 PHQ-9 Answer Date Recorded Patient Health Questionnaire-9 Score 0 03/06/2025 AUDIT-C Answer Date Recorded Q1: How often do you have a drink containing alcohol? Never 03/06/2025 Q2: How many drinks containi ng alcohol do you have on a typical day when you are drinking? Patient does not drink Q3: How often do you have si x or more drinks on one occasion? Never 03/06/2025 Comments No Sex and Gender Information Value Date Recorded Sex Assigned at Not on file Legal Sex Female 7:30 PM EDT Gender Identity Not on file Sexual Orientation Not on file documented as of this encounter Last Filed Vital Signs Vital Sign Reading Time Taken Comments Blood Pressure 107/54 03/06/2025 10:20 AM EDT Pulse 80 03/06/2025 10:20 AM EDT Temperature - - Respiratory Rate - - Oxygen Saturation - - Inhaled Oxygen Concentration - - Weight - - Height - - Body Mass Index - - documented in this encounter Functional Status * AUDIT-C Score Answer Date of Assessment Author 0 03/06/2025 11:21 AM EDT Cindy Richard * Question Answer Date of Assessment Author Q1: How often do you have a drink containing alcohol? Never 03/06/2025 11:21 AM Ca Yu Q2: How many drinks containing alcohol do you have on a typical day when you are drinking? Patient does not drink 03/06/2025 11:21 AM Cindy Yu Q3: How often do you have six or more drinks on one occasion? Never 03/06/2025 11:21 AM Ca Yu * Over the past 2 weeks, how often have you been bothered by any of the following problems? Question Answer Date of Assessment Author Little interest or pleasure in doing things Not at all 03/06/2025 11:18 AM Ca Yu Feeling down, depressed, or hopeless Not at all 03/06/2025 11:18 AM Ca Yu Patient Health Questionnaire -2 Score 0 03/06/2025 11:18 AM Ca Yu * Question Answer Date of Assessment Author Trouble falling or staying asleep, or sleeping too much Not at all 03/06/2025 11:18 AM Cindy Yu Feeling tired or having brandee le energy Not at all 03/06/2025 11:18 AM Ca Yu Poor appetite or overeating Not at all 03/06/2025 11 :18 AM Cindy Yu Feeling bad about yourself - or that you are a failure or have let yourself or your family down Not at all 03/06/2025 11:18 AM Cindy Alaniz Trouble concentrating on thi ngs, such as reading the newspaper or watching television Not at all 03/06/2025 11:18 AM Ca Yu Moving or speaking so slowly that other people could have noticed? Or the opposite - being so fidgety or restless that you have been moving around a lot more than usual. Not at all 03/06/2025 11:18 AM Ca Yu Thoughts that you would be better off or hurting yourself in some way Not at all 03/06/2025 11:18 AM Chon Yu Patient Health Questionnaire -9 Score 0 03/06/2025 11:18 AM Ca Yu documented as of this encounter Medications at Time of Discharge amLODIPine (Norvasc) 5 MG tablet Take 1 tablet by mouth daily. aspirin 81 MG EC tablet Take 1 tablet by mouth daily. lisinopril-hydro CHLOROthiazide 20-12.5 MG tablet Take 2 tablets by mouth daily. Osimertinib Mesylate 80 MG tabletIndication s:NSCLC metastatic to brain Take 1 tablet by mouth daily. 30 tablet 2 01/28/2025 potassium chloride CR (Klor-Con) 10 MEQ ER tablet Take 1 tablet by mouth daily. Do not crush, chew, or split. aspirin 81 MG EC tablet Take 1 tablet by mouth 2 times a day for 28 days. For 4 weeks post-op for blood clot prevention 56 tablet 02/12/2025 5 docusate sodium (Colace) 250 MG capsule Take 1 capsule by mouth 2 times a day. 60 capsule 02/12/2025 5 omeprazole (PriLOSEC) [address] capsule Take 1 capsule by mouth daily for 28 days. Do not crush or chew. 28 capsule 02/12/2025 5 acetaminophen (Tylenol Extra Strength) 500 MG tablet Take 2 tablets by mouth every 8 hours. 100 tablet 02/12/2025 5 gabapentin (Neurontin) 100 MG capsule Take 1 capsule by mouth 3 times a day. If this medication makes you drowsy you may take it only at bedtime 30 capsule 02/11/2025 5 meloxicam (Mobic) 15 MG tablet Take 1 tablet by mouth daily. 5 naloxone (Narcan) 4 mg/0.1 mL nasal spray 1. Give 1 spray in nostril for no/slow breathing or cannot wake after opioid use 2. Call 911 3. Repeat in other nostril if symptoms continue 1 each 02/11/2025 5 oxyCODONE (Roxicodone) 5 MG immediate release tablet Take 1 tablet by mouth every 6 hours as needed for severe pain. 30 tablet 02/11/2025 5 traMADol (Ultram) 50 MG tablet Take 1 tablet by mouth every 4 hours as needed for severe pain. 60 tablet 02/11/2025 5 documented as of this encounter Plan of Treatment Upcoming Encounters Date Type Department Care Team ([facility] st Contact Info) Description 04/19/2025 8:15 AM EDT Hospital Encounter [facility] S Operating Room [address] [place] [address] Abdelrahman Betancur MD [address] [place] [address] 04/19/2025 8:15 AM EDT - 04/19/2025 10:40 AM EDT Surgery [facility] Operating Room [address] [place] [address] Abdelrahman Betancur MD [address] [place] [address] ARTHROPLASTY, HIP, TOTAL, ANTERIOR APPROACH [[id number] (CPT )] 05/03/2025 9:00 AM EDT Office Visit Medical Office Building Surgery Spine & Joint [address], [address] [place] [address] Renetta Stoner PA [address] [place] [address] 06/04/2025 11:00 AM EST Office Visit Medical Office Building Surgery Spine & Joint [address], [address] [place] [address] Abdelrahman Betancur MD [address] [place] [address] 06/25/2025 12:10 PM EST Appointment [facility] [address]nd [place] [address] 06/25/2025 1:00 PM EST Appointment [facility] Radiology [address], 1st [place] [address] 06/25/2025 2:15 PM EST Clinical Support [facility] [address] [facility], 2nd [place] [address] 06/25/2025 2:40 PM EST Office Visit [facility] [address] [facility], [address] [place] [address] Rudolph Dillard MD [address] [phone] 01/08/2026 2:00 PM EDT Appointment Medical Office Building Cardiac Diagnostic Testing Medical Office Building Echo Lab [address] [facility], [address] [place] [address] 01/08/2026 3:00 PM EDT Office Visit [facility] [place] [address] [facility], [address] [place] [address] Dian Yancey PA 800 [place] [phone] Scheduled Procedures Name Priority Associated Diagnoses Date/Ti me ARTHROPLASTY, HIP, TOTAL, ANTERIOR APPROACH Arthritis of right hip 04/19/2025 8:15 AM EDT documented as of this encounter Procedures Procedure Name Priority Date/Time Associated Diagnosis Comments ECHO, ADULT TRANSTHORACIC COMPLETE Routine 03/06/2025 10:48 AM EDT S/P TAVR (transcatheter aortic valve replacement) documented in this encounter Results * ECHO, ADULT TRANSTHORACIC COMPLETE (03/06/2025 10:48 AM EDT) Height 165.1 OLEG ISCV Weight 82.6 OLEG ISCV BSA 1.90 m2 OLEG ISCV LV V1 VTI 27.1 cm OLEG ISCV TR Vmax 207.0 cm/s OLEG ISCV TR Max PG 17 mmHG OLEG ISCV LV V1 Vmax 129.0 cm/s OLEG ISCV Ao V2 VTI 48.5 cm OLEG ISCV Ao mean PG 14 mmHg OLEG ISCV Ao V2 Vmax 256.0 cm/s OLEG ISCV Ao max PG 26 mmHg OLEG ISCV AV VTI Index 0.56 OLEG ISCV LV mean PG 4.0 mmHG OLEG ISCV LV V1 mean 90.2 cm/sec OLEG ISCV LV max PG 6.7 mmHg OLEG ISCV AV-pr VR 0.5 OLEG ISCV Ao V2 mean 173.0 cm/s OLEG ISCV LVOT diam 20 mm OLEG ISCV LVOT AREA 3.1 cm2 OLEG ISCV SV(LVOT) 85 mL OLEG ISCV ADELAIDA(I,D) 1.8 cm2 OLEG ISCV ADELAIDA(VTI)/BSA_ph l 0.9 cm2/m2 OLEG ISCV Ao Root Diam 28 mm OLEG ISCV Asc Ao Diam 31 mm OLEG ISCV LAV(MOD-4ch) 53 mL OLEG ISCV MV E Vmax 113.2 cm/s OLEG ISCV MV A Vmax 121.4 cm/s OLEG ISCV MV E/A 0.9 cm/s OLEG ISCV LV Lat e' Velocity 12.2 cm/s OLEG ISCV Lat E/e' 9.3 OLEG ISCV LV Sept e' Mohsen 7.2 cm/s OLEG ISCV Sep E/e' 15.7 OLEG ISCV Avg E/e' 12.5 OLEG ISCV LV EDV(MOD-4ch) 92 mL OLEG ISCV LV ESV(MOD4ch) 39 mL OLEG ISCV EF(MOD-sp4) 58 % OLEG ISCV RV s' Mohsen 12.3 cm/s OLEG ISCV TAPSE 20 mm OLEG ISCV LAV(MOD-bp) Indexed 28 mL/m2 OLEG ISCV LAV(MOD-2ch) 53 mL OLEG ISCV LV EDV(MOD-2ch) 82 mL OLEG ISCV EDV(MOD-bp) 87 mL OLEG ISCV LV ESV(MOD2ch) 37 mL OLEG ISCV EF(MOD-sp2) 55 % OLEG ISCV ESV(MOD-bp) 38 mL OLEG ISCV EF(MOD-bp) 56 % OLEG ISCV LVLs ap2 6.6 mm OLEG ISCV RA MOD 4Ch 28 mL OLEG ISCV NAIMA 15 mL/m2 OLEG ISCV RV base 31 mm OLEG ISCV RV Mid 25 mm OLEG ISCV RVSP 20 mmHg OLEG ISCV RAP systole 3 mmHg OLEG ISCV IVSd 10 mm OLEG ISCV LVIDd 41 mm OLEG ISCV LVPWd 12 mm OLEG ISCV LV MASS(C)D 151 g OLEG ISCV [facility] CV ECHO LV MASS INDEX 79 g/m2 OLEG ISCV LV RWT 0.54 mm OLEG ISCV LVIDs 19 mm OLEG ISCV LA dimension 33 mm OLEG ISCV MPA diam 24 mm OLEG ISCV MPA area 4.5 cm2 OLEG ISCV Anatomical Region Laterality Modality Echocardiography Narrative 03/06/2025 11:12 AM EDT Left Ventricle: Based on the linear dimension and/or 2D volumes, the left ventricle is normal in size. There is concentric remodeling. The left ventricular systolic function is normal. The LVEF is visually estimated at 65 - 70%. The calculated cardiac index based on LVOT Doppler technique is high. The left ventricular filling pressure is indeterminate. The left ventricular wall motion is normal and no regional wall motion abnormalities are seen. Aortic Valve: There is a bioprosthetic valve (23 mm Kerry). There is mild, anteromedial paravalvular leak. The peak gradient is 26 mmHg. The mean gradient is 14 mmHg. The estimated aortic valve area by the continuity equation is 1.8 cm2. The gradient is abnormally high for this prosthetic valve due to high cardiac output. Compared to the most recently available prior study dated 12/28/24, and allowing for differences in image quality and technique, the mild paravalvular leak around the bioprosthetic TAVR is newly reported. Left Ventricle Based on the linear dimension and/or 2D volumes, the left ventricle is normal in size. There is concentric remodeling. The left ventricular systolic function is normal. The LVEF is visually estimated at 65 - 70%. The calculated cardiac index based on LVOT Doppler technique is high. The left ventricular filling pressure is indeterminate. The left ventricular wall motion is normal and no regional wall motion abnormalities are seen. Right Ventricle The right ventricle is normal in size. The right ventricular systolic function is normal. Right ventricular systolic pressure is normal (<35mmHg). Left Atrium The left atrial size is mildly increased with an indexed volume of 35-41 mL/m2. The interatrial septum is intact with no evidence for an atrial septal defect. Right Atrium The right atrial volume index is normal (18-32mL/m2). IVC/SVC Based on the IVC size and respiratory variation, the estimated right atrial pressure is 3mmHg. Mitral Valve There is mild mitral annular calcification. There is mild mitral regurgitation. There is no mitral stenosis. Tricuspid Valve The tricuspid valve is normal in appearance. There is mild tricuspid regurgitation. There is no tricuspid stenosis. Aortic Valve There is a bioprosthetic valve (23 mm Kerry). There is mild, anteromedial paravalvular leak. The peak gradient is 26 mmHg. The mean gradient is 14 mmHg. The estimated aortic valve area by the continuity equation is 1.8 cm2. The gradient is abnormally high for this prosthetic valve due to high cardiac output. Pulmonic Valve The pulmonic valve is normal in appearance. There is mild pulmonic regurgitation. There is no pulmonic stenosis. Pericardium No pericardial effusion. Great Vessels The aortic root is normal in size. In the maximally visualized portion, the ascending aorta appears normal in size. The main pulmonary artery is normal in size. Study Details A complete transthoracic echocardiogram using two-dimensional (2D), m-mode, color and spectral flow Doppler imaging was performed. During the study the apical, parasternal, subcostal and suprasternal view was captured. Overall the study quality was adequate. Height: 165.1 cm. Weight: 82.6 kg. BSA: 1.90 m2. Scanned supine due to recent left hip surgery. Study Recommendation Compared to the most recently available prior study dated 12/28/24, and allowing for differences in image quality and technique, the mild PVL is newly reported. us Dian BILL CV ECHO PROCEDURES Nathaly l Result documented in this encounter Visit Diagnoses Diagnosis S/P TAVR (transcatheter aortic valve replacement) Arthritis of right hip documented in this encounter Additional Health Concerns Assessment Noted Time PHQ-9 Depression Total Score: 0 03/06/20 11:18 AM EDT A fall risk assessment has been complete d for the patient 03/06/2025 11:08 AM EDT A Body Mass Index follow-up plan has been documented for the patient 03/06/2025 11:39 AM EDT documented as of this encounter Care Teams Automatic Shirring Machine Operator Relationship Specialty Start Date End Date Wan Santoro MD [address] [place] [address] [address] [place] [address] PCP - General 01/20/21 Dalton Hurley MD 800 [facility] [address] [place] [address] Consulting Physician Radiation Therapy 03/27/21 Geovanny Dominguez MD [address] [facility] [address] [place] [address] Surgeon Neurosurgery 05/21/21 Rudolph Dillard MD [address] [address] Consulting Physician Medical Oncology 09/22/21 Abdiel Vargas, INCOME TAX AUDITOR 800 [facility] [address] [place] [address] Nurse Practitioner Internal Medicine 04/09/22 Rodney Maria MD [address] [address] Referring Physician 11/14/24 Brian Flores MD 800 [place] [address] Consulting Physician Cardiology 11/14/24 documented as of this encounter
--- OUTSIDE RECORDS SUMMARY | 2025-03-06 11:30 | XMS_ITS | Encounter Summary ---
Author Organization [facility] Address [address] [place] [address] Care Team Providers Care Power Transformer Assembler Name Role Phone Wan Santoro MD Primary Care Provider [phone] Dalton Hurley MD Unavailable [phone] Geovanny Dominguez MD Unavailable [phone] Rudolph Dillard MD Unavailable Abdiel Vargas APRN Unavailable [phone] Rodney Maria MD Unavailable [phone] Brian Flores MD Unavailable [phone] Reason for Visit * Reason Comments Follow-up Post-op TAVR Encounter Details Date Type Department Care Team (Late st Contact Info) Description 03/06/2025 11:30 AM EDT Office Visit [facility] [place] [address] [facility], [address] [place] [address] Dian Yancey PA [address] [place] [address] Nonrheumatic aortic valve stenosis (Primary Dx) Social History Tobacco Use Types [...] Sign Reading Time Taken Comments Blood Pressure 150/76 03/06/2025 11:20 AM EDT Pulse 71 03/06/2025 11:20 AM EDT Temperature - - Respiratory Rate - - Oxygen Saturation 98% 03/06/2025 11:20 AM EDT Inhaled Oxygen Concentration - - Weight 84.2 kg (185 lb 10 oz) 03/06/2025 11:20 A M EDT Height 165.1 cm (5' 5 ) 03/06/2025 11:20 AM EDT Body Mass Index 30.89 03/06/2025 11:20 AM EDT documented in this encounter Functional Status * AUDIT-C Score Answer Date of Assessment Author 0 03/06/2025 11:21 AM EDT Cindy Richard * Question Answer Date of Assessment Author Q1: How often do you have a drink containing alcohol? Never 03/06/2025 11:21 AM EDT Ca Richard Q2: How many drinks containing alcohol do you have on a typical day when you are drinking? Patient does not drink 03/06/2025 11:21 AM EDT Cindy Richard Q3: How often do you have six or more drinks on one occasion? Never 03/06/2025 11:21 AM EDT Ca Richard * Over the past 2 weeks, how often have you been bothered by any of the following problems? Question Answer Date of Assessment Author Little interest or pleasure in doing things Not at all 03/06/2025 11:18 AM EDT Ca Richard Feeling down, depressed, or hopeless Not at all 03/06/2025 11:18 AM EDT Ca Richard Patient Health Questionnaire -2 Score 0 03/06/2025 11:18 AM MARYT Ca Richard * Question Answer Date of Assessment Author Trouble falling or staying asleep, or sleeping too much Not at all 03/06/2025 11:18 AM MARYT Cindy Richard Feeling tired or having brandee le energy Not at all 03/06/2025 11:18 AM MARYT Ca Richard Poor appetite or overeating Not at all 03/06/2025 11 :18 AM MARYT Cindy Richard Feeling bad about yourself - or that you are a failure or have let yourself or your family down Not at all 03/06/2025 11:18 AM EDT Cindy Solares Trouble concentrating on thi ngs, such as reading the newspaper or watching television Not at all 03/06/2025 11:18 AM EDT Ca Richard Moving or speaking so slowly that other people could have noticed? Or the opposite - being so fidgety or restless that you have been moving around a lot more than usual. Not at all 03/06/2025 11:18 AM MARYT Ca Richard Thoughts that you would be better off or hurting yourself in some way Not at all 03/06/2025 11:18 AM MARYT Chon Richard Patient Health Questionnaire -9 Score 0 03/06/2025 11:18 AM EDT Ca Richard documented as of this encounter Miscellaneous Notes * Progress Notes - Dian Yancey PA - 03/06/2025 11:30 AM EDT Images from the original note were not included. Cardiology Clinic Note HPI Priya Lynn is a 69 y.o. female who presents today for follow-up. Patient's medical history is significant for aortic valve stenosis, HTN, stage 4 NSCLC. She underwent TAVR on 12/27/24 with a 23mmEdwards valve. She had an echo prior to today's visit. Today, patient states she is doing ok. She denies any significant changes since her TAVR, but was relatively asymptomatic prior. She has undergone her first hip replacement which went well and is awaiting her second. Review of Systems 14 Point ROS reviewed and is otherwise negative except as per HPI. The following portions of the chart were reviewed this encounter and updated as appropriate: Tobacco Allergies Meds Problems Med Hx Surg Hx Fam Hx Objective Medications Current Medications[1] Physical Exam Visit Vitals BP (!) 150/76 Pulse 71 Ht 1.651 m (5' 5 ) Wt 84.2 kg (185 lb 10 oz) SpO2 98% BMI 30.89 kg/m?? Physical Exam Vitals and nursing note reviewed. Constitutional: Appearance: Normal appearance. HENT: Head: Normocephalic and atraumatic. Nose: Nose normal. Mouth/Throat: Mouth: Mucous membranes are moist. Eyes: Conjunctiva/sclera: Conjunctivae normal. Cardiovascular: Rate and Rhythm: Normal rate and regular rhythm. Pulses: Normal pulses. Heart sounds: S1 normal and S2 normal. Murmur heard. Systolic murmur is present with a grade of 2/6. Pulmonary: Effort: Pulmonary effort is normal. Breath [...] and Affect: Mood normal. Behavior: Behavior normal. Lab Review Lab Results Component Value Date BILITOT 0.7 12/11/2024 CALCIUM 8.9 12/28/2024 CO2 23 12/28/2024 CL 106 12/28/2024 CREATININE 0.83 12/28/2024 ALKPHOS 70 12/11/2024 K 4.1 12/28/2024 NA 140 12/28/2024 AST 20 12/11/2024 ALT 13 12/11/2024 BUN 20 12/28/2024 WBC 13.21 (H) 02/12/2025 HGB 8.5 (L) 02/12/2025 HCT 25.4 (L) 02/12/2025 PLT 133 (L) 02/12/2025 MCV 91 02/12/2025 TSH 2.57 09/04/2024 BNP 348 12/27/2024 Assessment and Plan Problem List Items Addressed This Visit Nonrheumatic aortic valve stenosis - Primary Relevant Orders ECG Adult (Now - Performed in your clinic) (Completed) #Aortic Stenosis --s/p TAVR with a 23mm Zavala valve on 12/27/24 --Echo today shows well positioned valve with no significant change in gradients compared to post-procedure --NYHA Class II --Activity limited secondary to hip pain, pending replacement --repeat echo in 1 year #HTN --Slightly elevated today --Continue to monitor at home #NSCLC --Follows with oncology Follow-up for 1 year post-TAVR visit with echo prior. Continue following with Dr. Maria for general cardiology care. I spent 32 minutes performing the following components of the encounter (on the day of the encounter): reviewing History, examining the patient, reviewing imaging and/or labs, Independently interpreting echocardiogram, ECG and/or other imaging results, counseling the patient and family/caregiver, and entering clinical information in the EHR. Greater than 50% of the time spent on the encounter wasface to face providing direct patient care, counseling for the patient/caregiver, and care coordination. Dian Yancey PA-C [1] Current Outpatient Medications Medication Sig Dispense Refill acetaminophen (Tylenol Extra Strength) 500 MG tablet Take 2 tablets by mouth every 8 hours. 100 tablet 0 amLODIPine (Norvasc) 5 MG tablet Take 1 tablet by mouth daily. [Paused] aspirin 81 MG EC tablet Take 1 tablet by mouth daily. aspirin 81 MG EC tablet Take 1 tablet by mouth 2 times a day for 28 days. For 4 weeks post-op for blood clot prevention 56 tablet 0 docusate sodium (Colace) 250 MG capsule Take 1 capsule by mouth 2 times a day. 60 capsule 0 lisinopril-hydroCHLOROthiazide 20-12.5 MG tablet Take 2 tablets by mouth daily. meloxicam (Mobic) 15 MG tablet Take 1 tablet by mouth daily. potassium chloride CR (Klor-Con) 10 MEQ ER tablet Take 1 tablet by mouth daily. Do not crush, chew,or split. gabapentin (Neurontin) 100 MG capsule Take 1 capsule by mouth 3 times a day. If this medication makes you drowsy you may take it only at bedtime (Patient not taking: Reported on 03/06/2025) 30 capsule0 naloxone (Narcan) 4 mg/0.1 mL nasal spray 1. Give 1 spray in nostril for no/slow breathing or cannot wake after opioid use 2. Call 911 3. Repeat in other nostril if symptoms continue 1 each 0 omeprazole (PriLOSEC) [address] capsule Take 1 capsule by mouth daily for 28 days. Do not crush or chew. (Patient not taking: Reported on 03/06/2025) 28 capsule 0 Osimertinib Mesylate 80 MG tablet Take 1 tablet by mouth daily. 30 tablet 2 oxyCODONE (Roxicodone) 5 MG immediate release tablet Take 1 tablet by mouth every 6 hours as neededfor severe pain. (Patient not taking: Reported on 03/06/2025) 30 tablet 0 traMADol (Ultram) 50 MG tablet Take 1 tablet by mouth every 4 hours as needed for severe pain. (Patient not taking: Reported on 03/06/2025) 60 tablet 0 No current facility-administered medications for this visit. documented in this encounter Plan of Treatment Upcoming Encounters Date Type Department Care Team (Late st Contact Info) Description 04/19/2025 8:15 AM EDT Hospital Encounter [facility] Operating Room [address] [place] [address] Abdelrahman Betancur MD [address] [address] 04/19/2025 8:15 AM EDT - 04/19/2025 10:40 AM EDT Surgery [facility] Operating Room [address] [place] [address] Abdelrahman Betancur MD [address] [address] ARTHROPLASTY, HIP, TOTAL, ANTERIOR APPROACH [69050 (CPT )] 05/03/2025 9:00 AM EDT Office Visit [facility] [address] [facility], [address] [place] [address] Renetta Stoner PA [address] [facility] [address] [place] [address] 06/04/2025 11:00 AM EST Office Visit [facility] [address] [facility], [address] [place] [address] Abdelrahman Betancur MD [address] [facility] [address] [place] [address] 06/25/2025 12:10 PM EST Appointment [facility] [address]nd [place] [phone] 06/25/2025 1:00 PM EST Appointment [facility] [address], 1st [place] [address] 06/25/2025 2:15 PM EST Clinical Support [facility] [address] [facility], [address] [place] [address] 06/25/2025 2:40 PM EST Office Visit [facility] [address] [facility], [address] [place] [address] Rudolph Dillard MD [address] [facility] [address]nd [place] [address] 01/08/2026 2:00 PM EDT Appointment [facility] Cardiac Diagnostic Testing [facility] Echo Lab [address] [facility], [address] [place] [address] 01/08/2026 3:00 PM EDT Office Visit [facility] [place] [address] [facility], [address] [place] [address] Dian Yancey PA [address] [place] [address] Scheduled Procedures Name Priority Associated Diagnoses Date/Ti me ARTHROPLASTY, HIP, TOTAL, ANTERIOR APPROACH Arthritis of right hip 04/19/2025 8:15 AM EDT documented as of this encounter Procedures Procedure Name Priority Date/Time Associated Diagnosis Comments ECG ADULT Routine 03/06/2025 11:15 AM EDT Nonrheumatic aortic valve stenosis documented in this encounter Results * ECG Adult (Now - Performed in your clinic) (03/06/2025 11:15 AM EDT) EKG DIAGNOSIS CLASS Abnormal MUSE ECG Ventricular Rate 79 BPM MUSE ECG Atrial Rate 79 BPM MUSE ECG NC Interval 156 ms MUSE ECG QRSD Interval 88 ms MUSE ECG QT Interval 368 ms MUSE ECG QTC Interval 421 ms MUSE ECG P [place] 6 degrees MUSE ECG R [place] -39 degrees MUSE ECG T Wave [place] 23 degrees MUSE ECG Diagnosis Normal sinus rhythm MUSE ECG Diagnosis Left axis deviation MUSE ECG Diagnosis Septal infarct , age undetermined MUSE ECG Diagnosis Abnormal ECG MUSE ECG Diagnosis MUSE ECG Diagnosis Confirmed by Glynn Weber ([id number]) on 03/06/2025 3:54:17 PM MUSE ECG 03/06/2025 11:1 5 AM EDT 03/06/2025 3:54 PM EDT us Dian BILL ECG ORDERABLES Final R esult MUSE ECG documented in this encounter Visit Diagnoses Diagnosis Nonrheumatic aortic valve stenosis- Primary Arthritis of right hip documented in this encounter Additional Health Concerns Assessment Noted Time PHQ-9 Depression Total Score: 0 03/06/20 25 11:18 AM EDT A fall risk assessment has been complete d for the patient 03/06/2025 11:08 AM EDT A Body Mass Index follow-up plan has been documented for the patient 03/06/2025 11:39 AM EDT documented as of this encounter Care Teams Power Transformer Assembler Relationship Specialty Start Date End Date Wan Santoro MD [facility] [facility] [address] [place] [address] PCP - General 01/20/21 Dalton Hurley MD [address] [facility] [address] [place] [address] Consulting Physician Radiation Therapy 03/27/21 Geovanny Dominguez MD [address] [place] [address] Surgeon Neurosurgery 05/21/21 Rudolph Dillard MD [address] [place] [address] Consulting Physician Medical Oncology 09/22/21 Abdiel Vargas, PRERNA [address] [place] [address] Nurse Practitioner Internal Medicine 04/09/22 Rodney Maria MD [address] [address] Referring Physician 11/14/24 Brian Flores MD [address] [place] [address] Consulting Physician Cardiology 11/14/24 documented as of this encounter
--- OUTSIDE RECORDS SUMMARY | 2025-03-26 10:30 | XMS_ITS | Encounter Summary ---
Author Organization [facility] Address [address] [place] [address] Care Team Providers Care Solar Energy Specialist Name Role Phone Wan Santoro MD Primary Care Provider [phone] Dalton Hurley MD Unavailable [phone] Geovanny Dominguez MD Unavailable [phone] Rudolph Dillard MD Unavailable [phone] Abdiel Vargas APRN Unavailable [phone] Rodney Maria MD Unavailable [phone] Brian Flores MD Unavailable [phone] Encounter Details Date Type Department Care Team (Latest Contact Info) Description 03/26/2025 10:30 AM EDT - 03/26/2025 11:59 PM EDT Hospital Encounter Medical Office Building Radiology [facility] [place] [address] S/P total left hip arthroplasty Discharge Disposition: Home or Self Care Social [...] you are drinking? Patient does not drink 5 Q3: How often do you have si x or more drinks on one occasion? Never 03/06/2025 Comments No Sex and Gender Information Value Date Recorded Sex Assigned at Not on file Legal Sex Female 7:30 PM EDT Gender Identity Not on file Sexual Orientation Not on file documented as of this encounter Medications at [...] daily. Do not crush, chew, or split. acetaminophen (Tylenol Extra Strength) 500 MG tablet [...] [facility] Operating Room [address] [place] [address] Abdelrahman Betancur MD [address] [place] [address] 04/19/2025 8:15 AM EDT - 04/19/2025 10:40 AM EDT Surgery [facility] Operating Room [address] [place] [address] Abdelrahman Betancur MD [address] [place] [address] ARTHROPLASTY, HIP, TOTAL, ANTERIOR APPROACH [57007 (CPT )] 05/03/2025 9:00 AM EDT Office Visit [facility] [address] [facility], [address] [place] [address] Renetta Stoner PA [address] [place] [address] 06/04/2025 11:00 AM EST Office Visit [facility] [address] [facility], [address] [place] [address] Abdelrahman Betancur MD [address] [place] [address] 06/25/2025 12:10 PM EST Appointment [facility] [address] 2nd [place] [address] 06/25/2025 1:00 PM EST Appointment [facility] S Radiology [address], 1st [place] [address] 06/25/2025 2:15 PM EST Clinical Support [facility] [address] [facility], 2nd [place] [address] 06/25/2025 2:40 PM EST Office Visit [facility] [address] [facility], 2nd [place] [address] Rudolph Dillard MD [address] [facility] 2nd [place] [address] 01/08/2026 2:00 PM EDT Appointment Medical Office Building Cardiac Diagnostic Testing Medical Office Building Echo Lab [address] [facility], [address] [place] [address] 01/08/2026 3:00 PM EDT Office Visit [facility] [place] [address] [facility], [address] [place] [address] Dian Yancey PA [address] [place] [address] Scheduled Procedures Name Priority Associated Diagnoses Date/Ti me ARTHROPLASTY, HIP, TOTAL, ANTERIOR APPROACH Arthritis of right hip 04/19/2025 8:15 AM EDT documented as of this encounter Procedures Procedure Name Priority Date/Time Associated Diagnosis Comments XR PELVIS 1 OR 2 VIEWS Routine 03/26/2025 10:40 AM EDT S/P total left hip arthroplasty documented in this encounter Results * XR Pelvis 1 [...] Visit Diagnoses Diagnosis S/P total left hip arthroplasty Arthritis of right hip documented in this encounter Additional Health Concerns Assessment Noted Time PHQ-9 Depression Total Score: 0 03/06/20 25 11:18 AM EDT A fall risk assessment has been complete d for the patient 03/26/2025 10:48 AM EDT A Body Mass Index follow-up plan has been documented for the patient 03/26/2025 4:05 PM EDT documented as of this encounter Care Teams Solar Energy Specialist Relationship Specialty Start Date End Date Wan Santoro MD [facility] [address] [id number] [place], [place] [id number] PCP - General 01/20/21 Dalton Hurley MD [address] [place] [address] Consulting Physician Radiation Therapy 03/27/21 Geovanny Dominguez MD [address] [facility] [address] [place] [address] Surgeon Neurosurgery 05/21/21 Rudolph Dillard MD [address] [address] Consulting Physician Medical Oncology 09/22/21 Abdiel Vargas, BIOMEDICAL MANAGER 800 [facility] [address] [place] [address] Nurse Practitioner Internal Medicine 04/09/22 Rodney Maria MD [address] [address] Referring Physician 11/14/24 Brian Flores MD [address] [place] [address] Consulting Physician Cardiology 11/14/24 documented as of this encounter
--- OUTSIDE RECORDS SUMMARY | 2025-03-26 11:10 | XMS_ITS | Encounter Summary ---
Author Organization [facility] Address [address] [place] [address] Care Team Providers Care Tool Inspector Name Role Phone Wan Santoro MD Primary Care Provider [phone] Dalton Hurley MD Unavailable [phone] Geovanny Dominguez MD Unavailable [phone] Rudolph Dillard MD Unavailable [phone] Abdiel Vargas APRN Unavailable [phone] Rodney Maria MD Unavailable [phone] Brian Flores MD Unavailable [phone] Reason for Visit * Reason Comments Post-op Encounter Details Date Type Department Care Team (Late st Contact Info) Description 03/26/2025 11:10 AM EDT Office Visit Medical Office Building Surgery Sp[facility] & Joint [address] [facility], [address] [place] [address] Abdelrahman Betancur MD [address] [place] [address] S/P total left hip arthroplasty (Primary Dx); Arthritis of right hip Social History Tobacco Use Types Packs/Day Years [...] Sign Reading Time Taken Comments Blood Pressure 149/77 03/26/2025 10:48 AM EDT Pulse 74 03/26/2025 10:48 AM EDT Temperature - - Respiratory Rate - - Oxygen Saturation 98% 03/26/2025 10:48 AM EDT Inhaled Oxygen Concentration - - Weight 84.2 kg (185 lb 10 oz) 03/26/2025 10:48 A M EDT Height 162.6 cm (5' 4 ) 03/26/2025 10:48 AM EDT Body Mass Index 31.86 03/26/2025 10:48 AM EDT documented in this encounter Miscellaneous Notes * Progress Notes - Abdelrahman Betancur MD - 03/26/2025 11:10 AM EDT Images from the original note were not included. Subjective: Priya Lynn is a 69 y.o. y/o female who comes in today for left total hip arthroplasty in addition to right hip pain. Patient is now 6 weeks out following her left total hip arthroplasty in his doing well. Her main issue now is her right hip. It is limiting her ability to do daily activities including challenges with getting dressed and walking. She has already tried activity modification as well as anti-inflammatories and physical therapy following her left hip. She would be interested in proceeding with right total hip arthroplasty. Past Medical History[1] Surgical History[2] Social History Socioeconomic History Marital status: Spouse [...] file Social Connections: Unknown (04/23/2023) Received from [facility] Family and Community Support Help with Day-to-Day Activities: Not on file Lonely or Isolated: Not on file Intimate Partner Violence: Unknown (04/23/2023) Received from [facility] Abuse Screen Unsafe at Home or Work/School: Not on file Feels Threatened by Someone?: Not on file Does Anyone Keep You from Contacting Others or Doint Things Outside the Home?: Not on file Physical Sign of Abuse Present: Not on file Housing Stability: Unknown (04/23/2023) Received from [facility] Housing Stability Current Living Arrangements: Not on file Potentially Unsafe Housing Conditions: Not on file Allergies[3] Current Medications[4] I have reviewed and updated the patient's past medical history, past surgical history, social history, and family history. This is located both in the patient's note and their intake form that has been scanned into the medical record for today's visit. 14 point review of systems was reviewed per signed intake sheet and is otherwise negative except asnoted above. Objective: Body mass index is 31.86 kg/m??. 02/12/2025 2:00 AM 02/12/2025 7:25 AM 02/12/2025 11:16 AM 02/26/2025 11:29 AM 03/06/2025 10:20 AM 03/06/2025 11:20 AM 03/26/2025 10:48 AM Vitals Systolic 96 105 138 137 107 150 149 Diastolic 57 51 73 67 54 76 77 Heart Rate 77 82 83 91 80 71 74 Temp 36.4 C 36.3 C 36.3 C Resp 16 16 Height (cm) 165.1 cm 165.1 cm 162.6 cm Weight (kg) 82.9 kg 84.2 kg 84.2 kg BMI 30.41 kg/m2 30.89 kg/m2 31.86 kg/m2 BSA (m2) 1.95 m2 1.97 m2 1.95 m2 Visit Report Report Report Report Report Left hip Anterior based incisions well healed No pain with gentle range of motion Neurovascular intact distally Right Hip: Trendelenburg: Positive Limp: Positive ROM: HF 100 Abduction strength level: 5/5 Pain location: Anterior My independent interpretation of radiographic testing shows: Left hip x-rays demonstrates implants are in good position with no signs of any loosening or subsidence. Right hip x-rays demonstrates [id number] articulation with subchondral sclerosis reactive osteophytes and partial collapse of the head. Notes reviewed: Cardiology Results of tests reviewed: previous radiographs Assessment and plan: S/P total left hip arthroplasty Arthritis of right hip No orders of the defined types were placed in this encounter. No follow-ups on file. Patient has evidence of chronic end-stage arthritis of the right, hip with exacerbation. Based on discussion with the patient as well as review of the patient???s previous medical records and notes, the patient has now failed previous nonoperative treatment with activity modification, anti-inflammatories, corticosteroid injections, and assistive devices. Upon personal review of the preoperative imaging, the radiographs demonstrate severe joint space narrowing with subchondral sclerosis and reactive osteophytes. Risks complications and benefits of the procedure have now been discussed preoperatively to include but not limited to infection, bleeding, anesthesia risk, sciatic nerve palsy, insta bility, leg length discrepancy, aseptic loosening, osteolysis, DVT, continued pain, iatrogenic fracture, NC, stroke, and . The patient is felt to be an appropriate candidate for total hip arthroplasty. The patient will require preoperative medical clearance joint arthroplasty education. Risk stratification has demonstrated patient will be treated with chemical and mechanical DVT prophylaxis postoperatively. We will have the patient meet with the ticket scheduler today to try and find a date and time for the surgery. We will also get new xrays today to evaluate for the spinopelvic mobility to aid in determining proper acetabular cup position. We have also ordered preoperative laboratory workup to include CBC, BMP, Vitamin D Level, and Albumin to help with medical optimization prior to surgery. Rx management per plan. [1] Past Medical History: Diagnosis Date Abnormal ECG 10/03/24 Arthritis Cancer (CMS/HCC) uterine, ovarian, with brain mets Heart murmur Lifetime Heart valve disease [id number] TAVR procedure 12/27/24 High blood pressure Obesity Life Osteoarthritis [2] Past Surgical History: Procedure Laterality Date BRONCHOSCOPY RIGID / FLEXIBLE N/A CARDIAC VALVE SURGERY 12/27/2024 TAVR CARDIOTHORACIC PROCEDURE 12/29/20 12/27/24 CHOLECYSTECTOMY N/A COLONOSCOPY 08/02/2023 GAMMA KNIFE 2020 HYSTERECTOMY N/A LUNG BIOPSY [3] No Known Allergies [4] Current Outpatient Medications Medication Sig Dispense Refill [...] nostril if symptoms continue 1 each 0 Osimertinib Mesylate 80 MG tablet Take 1 tablet by mouth daily. 30 tablet 2 potassium chloride CR (Klor-Con) 10 MEQ ER tablet Take 1 tablet by mouth daily. Do not crush, chew,or split. gabapentin (Neurontin) 100 MG capsule Take 1 capsule by mouth 3 times a day. If this medication makes you drowsy you may take it only at bedtime (Patient not taking: Reported on 03/26/2025) 30 capsule 0 oxyCODONE (Roxicodone) 5 MG immediate release tablet Take 1 tablet by mouth every 6 hours as neededfor severe pain. (Patient not taking: Reported on 03/26/2025) 30 tablet 0 traMADol (Ultram) 50 MG tablet Take 1 tablet by mouth every 4 hours as needed for severe pain. (Patient not taking: Reported on 03/26/2025) 60 tablet 0 No current facility-administered medications for this visit. documented in this encounter Plan of Treatment Upcoming Encounters Date Type Department Care Team (Late st Contact Info) Description 04/19/2025 8:15 AM EDT Hospital Encounter [facility] Operating Room [address] [place] [address] Abdelrahman Betancur MD [address] [place] [address] 04/19/2025 8:15 AM EDT - 04/19/2025 10:40 AM EDT Surgery [facility] Operating Room [address] [place] [address] Abdelrahman Betancur MD [address] [place] [address] ARTHROPLASTY, HIP, TOTAL, ANTERIOR APPROACH [68660 (CPT )] 05/03/2025 9:00 AM EDT Office Visit Medical Office Building Surgery [facility] [address], [address] [place] [address] Renetta Stoner PA [address] [place] [address] 06/04/2025 11:00 AM EST Office Visit Medical Office Building Surgery [facility] [address], [address] [place] [address] [facility]delrahman [facility]ur MD [address] [facility] [address] [place] [address] 06/25/2025 12:10 PM EST Appointment [facility] [address] [place] [address] 06/25/2025 1:00 PM EST Appointment [facility] S Radiology [address], 1st [place] [address] 06/25/2025 2:15 PM EST Clinical Support [facility] [address] [facility], [address] [place] [address] 06/25/2025 2:40 PM EST Office Visit [facility] [address] [facility] [place] [address] Rudolph Dillard MD [address] [address] 01/08/2026 2:00 PM EDT Appointment Medical Office Building Cardiac Diagnostic Testing Medical Office Building Echo Lab [address] [facility], [address] [place] [address] 01/08/2026 3:00 PM EDT Office Visit [facility] [place] [address] [facility], [address] [place] [address] Dian Yancey PA [address] [place] [address] Scheduled Procedures Name Priority Associated Diagnoses Date/Ti me ARTHROPLASTY, HIP, TOTAL, ANTERIOR APPROACH Arthritis of right hip 04/19/2025 8:15 AM EDT documented as of this encounter Visit Diagnoses Diagnosis S/P total left hip arthroplasty- Primary Arthritis of right hip Arthritis of right hip documented in this encounter Additional Health Concerns Assessment Noted Time PHQ-9 Depression Total Score: 0 03/06/20 25 11:18 AM EDT A fall risk assessment has been complete d for the patient 03/26/2025 10:48 AM EDT A Body Mass Index follow-up plan has been documented for the patient 03/26/2025 4:05 PM EDT documented as of this encounter Care Teams Tool Inspector Relationship Specialty Start Date End Date Wan Santoro MD [id number] [place] [address] PCP - General 01/20/21 Dalton Hurley MD [address] [facility] [address] [place] [address] Consulting Physician Radiation Therapy 03/27/21 Geovanny Dominguez MD [address] [place] [address] Surgeon Neurosurgery 05/21/21 Rudolph Dillard MD [address] [phone] Consulting Physician Medical Oncology 09/22/21 Abdiel Vargas APRN 800 [facility] [address] [facility] [address] [place] [address] Nurse Practitioner Internal Medicine 04/09/22 Rodney Maria MD [id number] Referring Physician 11/14/24 Brian Flores MD 800 [place] [phone] Consulting Physician Cardiology 11/14/24 documented as of this encounter
--- OUTSIDE RECORDS SUMMARY | 2025-04-02 08:52 | XMS_ITS | Encounter Summary ---
Author Organization [facility] Address [address] [place] [address] Care Team Providers Care Assembly Loader Name Role Phone Wan Santoro MD Primary Care Provider [phone] Dalton Hurley MD Unavailable [phone] Geovanny Dominguez MD Unavailable [phone] Rudolph Dillard MD Unavailable [phone] Abdiel Vargas APRN Unavailable [phone] Rodney Maria MD Unavailable [phone] Brian Flores MD Unavailable [phone] Reason for Referral * Imaging (Routine) - Closed Specialty Diagnoses / Procedures Referred By Contac t Referred To Contact Radiology Diagnoses Malignant neoplasm metastatic to brain Adenocarcinoma of left lung (CMS/HCC) Procedures CT Chest w IV Contrast Rudolph Dillard MD [address] [place] [address] Phone: tel: fax: Referral ID Status Reason Start Date Expiration Date Visits Re quested Visits Authorized [id number] Closed 12/12/2024 06/13/2026 1 1 Reason for Visit * Imaging (Routine) - Closed Specialty Diagnoses / Procedures Referred By Contac t Referred To Contact Radiology Diagnoses Malignant neoplasm metastatic to brain Adenocarcinoma of left lung (CMS/HCC) Procedures CT Chest w IV Contrast Rudolph Dilalrd MD [address] [address] Phone: tel: fax: Referral ID Status Reason Start Date Expiration Date Visits Re quested Visits Authorized [id number] Closed 12/12/2024 06/13/2026 1 1 Encounter Details Date Type Department Care Team (Latest Contact Info) Description 04/02/2025 8:52 AM EDT - 04/02/2025 9:13 AM EDT Hospital Encounter [facility] Radiology [address] [place] [address] 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); Adenocarcinoma [...] 02/11/2025 5 documented as of this encounter Miscellaneous Notes * Therese Miller - 04/02/2025 8:54 AM EDT Images from the original note were not included. 1528 Caring for Yourself after Contrast Imaging If you had ORAL contrast: ? You can go back to your normal diet and activities as tolerated. ? Drink plenty of fluids, unless told otherwise. If you had IV contrast: ? You can go back to your normal diet and activities as tolerated. ? Drink plenty of fluids, unless told otherwise. ? Leave a bandage on the site for 30 minutes (where the IV was inserted or blood was drawn). If you had Intravesical (bladder) contrast: ? Return to normal diet and activity. What you need to know about delayed reaction to IV contrast What is IV Contrast? ? Contrast is a dye that is put into your body through an IV. ? It is used for imaging scans such as CT scans and MRIs. ? The contrast makes blood vessels, organs and other parts of your body show up better on the scan. What do I need to do after IV contrast? ? Drink lots of fluids. This will help flush the contrast out of your system. ? Drink 2-3 extra glasses or bottles of water within 4 hours of your scan. What is a contrast reaction? ? A contrast reaction is a bad side effect from the contrast dye. ? It is rare but it does happen. ? They can be mild - such as sneezing, itching, or hives. ? They can be severe - such as trouble breathing, throat swelling, and irregular heart beat. When do these reactions happen? ? They often happen right after the contrast is injected. ? Some happen hours after going home. Go to the nearest Emergency Department right away if you have any of these symptoms after you leavethe clinic or hospital. ? Sneezing ? Itching in your mouth, throat, eyes, ears, or skin ? Rash or hives ? Throwing up or stomach sickness ? High heart rate or ?racing? of your heart ? Feeling dizzy or woozy ? Feeling short of breath or like you can?t take a deep breath ? Feeling very anxious for no other reason [...] Encounter [facility] Operating Room [address] [place] [address] Abdelrahman Betancur MD [address] [facility] [address] [place] [address] 04/19/2025 8:15 AM EDT - 04/19/2025 10:40 AM EDT Surgery [facility] Operating Room [address] [place] [phone] Abdelrahman Betancur MD [address] [place] [address] ARTHROPLASTY, HIP, TOTAL, ANTERIOR APPROACH [61851 (CPT )] 05/03/2025 9:00 AM EDT Office Visit Medical Office Building Surgery [facility] [address], [address] [place] [address] Renetta Stoner PA [address] [place] [address] 06/04/2025 11:00 AM EST Office Visit Medical Office Building Surgery Sp[facility] [address] [facility] [place] [facility], [address] [place] [address] Abdelrahman Betancur MD [address] [place] [address] 06/25/2025 12:10 PM EST Appointment [facility] CT [address], [address]nd [place] [phone] 06/25/2025 1:00 PM EST Appointment [facility] S Radiology [address], 1st [place] [address] 06/25/2025 2:15 PM EST Clinical Support [facility] [address] [facility], [address] [place] [address] 06/25/2025 2:40 PM EST Office Visit [facility] [address] [facility], [address] [place] [phone] Rudolph Dillard MD [address] [address] 01/08/2026 2:00 PM EDT Appointment Medical Office Building Cardiac Diagnostic Testing Medical Office Building Echo Lab [address] [facility] [place] [facility], [address] [place] [phone] 01/08/2026 3:00 PM EDT Office Visit [facility] [place] [address] [facility], [address] [place] [address] Dian Yancey PA 800 [place] [address] Scheduled Procedures Name Priority Associated Diagnoses Date/Ti me ARTHROPLASTY, HIP, TOTAL, ANTERIOR APPROACH Arthritis of right hip 04/19/2025 8:15 AM EDT documented as of this encounter Procedures Procedure Name Priority Date/Time Associated Diagnosis Comments CT CHEST W IV CONTRAST Routine 04/02/2025 9:25 AM EDT 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) Adenocarcinoma of left lung (CMS/HCC) documented in this encounter Results * CT Chest w IV Contrast (04/02/2025 9:25 AM EDT) Anatomical Region Laterality Modality Chest Computed Tomogra phy Impressions 04/02/2025 10:30 AM EDT Stable left upper lobe posttreatment changes. No CT evidence of recurrent or metastatic disease within the chest. CRITICAL RESULT: No. COMMUNICATION: Per this written report. By electronically signing this report, I, the attending physician, attest that I have personally reviewed the images/data for the above examination(s) and agree with the final edited report. Drafted by Rodney Saha MD on 04/02/2025 10:01 AM Final report signed by Tapan Schroeder MD on 04/02/2025 10:30 AM Narrative 04/02/2025 10:30 AM EDT CLINICAL INDICATION: Metastatic left upper lobe pulmonary adenocarcinoma post left upper lobe SBRT April 2022 on osimertinib. TECHNIQUE: Multiple CT helical images were obtained from thoracic inlet through upper abdomen with administration of IV contrast. 80 mL of Omnipaque-300 were administered intravenously. The imaging protocol used in this examination was optimized to achieve diagnostic quality with the lowest possible radiation dose in accordance with the principles of ALARA (As Low As Reasonably Achievable). COMPARISON: CT chest 12/11/2024, 09/04/2024 and 12/29/2020 FINDINGS: Mediastinum and Pleura: No mediastinal or hilar adenopathy. No pleural or pericardial effusion. TAVR. Lungs: Trachea and main bronchi are patent. No bronchiectasis or bronchial wall thickening. Stable left upper lobe lentiform bandlike opacity. No new associated nodularity or concave margins. Stable right upper lobe 6 mm subsolid nodule (series 4/image 84). Few unchanged sub-5 mm solid pulmonary nodules. Reference right upper lobe (series 4/image 132). Unchanged focal anterior right middle lobe subsegmental atelectasis/scarring. Upper Abdomen: Stable subcentimeter right adrenal nodule (series 2/image 83). Musculoskeletal: No suspicious lytic or sclerotic lesion. Procedure Note Tapan Schroeder MD - 04/02/2025 CLINICAL INDICATION: Metastatic left upper lobe pulmonary adenocarcinoma post left upper lobeSBRT April 2022 on osimertinib. TECHNIQUE: Multiple CT helical images were obtained from thoracic inlet through upperabdomen with administration of IV contrast. 80 mL of Omnipaque-300 wereadministered intravenously. The imaging protocol used in this examination was optimized to achievediagnostic quality with the lowest possible radiation dose in accordancewith the principles of ALARA (As Low As Reasonably Achievable). COMPARISON: CT chest 12/11/2024, 09/04/2024 and 12/29/2020 FINDINGS: Mediastinum and Pleura: No mediastinal or hilar adenopathy. No pleural orpericardial effusion. TAVR. Lungs: Trachea and main bronchi are patent. No bronchiectasis or bronchialwall thickening. Stable left upper lobe lentiform bandlike opacity. No new associatednodularity or concave margins. Stable right upper lobe 6 mm subsolid nodule (series 4/image 84). Fewunchanged sub-5 mm solid pulmonary nodules. Reference right upper lobe(series 4/image 132). Unchanged focal anterior right middle lobesubsegmental atelectasis/scarring. Upper Abdomen: Stable subcentimeter right adrenal nodule (series 2/image83). Musculoskeletal: No suspicious lytic or sclerotic lesion. IMPRESSION: Stable left upper lobe posttreatment changes. No CT evidence of recurrentor metastatic disease within the chest. CRITICAL RESULT: No. COMMUNICATION: Per this written report. By electronically signing this report, I, the attending physician, martha I have personally reviewed the images/data for the aboveexamination(s) and agree with the final edited report. Drafted by Rodney Saha MD on 04/02/2025 10:01 AM Final report signed by Tapan Schroeder MD on 04/02/2025 10:30 AM Rudolph Dillard MD IM CT PROCEDURES Final Result documented in this encounter Visit Diagnoses Diagnosis Malignant neoplasm metastatic to brain Adenocarcinoma of left lung (CMS/HCC) Arthritis of right hip documented in this encounter Administered Medications Inactive Administered Medications - up to 3 most recent administrations Medication Order MAR Action Action Date Dose Rate Site iohexol (OMNIPaque) 300 MG/ML injection 100 mL 100 mL, Intravenous, Once in imaging, 1 dose, Starting on 04/02/25 at 0854, Until 04/02/25 at 0922, Routine, Imaging Protocol Orders Given 04/02/2025 9:22 AM EDT 80 mL documented in this encounter Additional Health Concerns Assessment Noted Time PHQ-9 Depression Total Score: 0 03/06/20 25 11:18 AM EDT A fall risk assessment has been complete d for the patient 04/02/2025 12:23 PM EDT A Body Mass Index follow-up plan has been documented for the patient 03/26/2025 4:05 PM EDT documented as of this encounter Care Teams Assembly Loader Relationship Specialty Start Date End Date Wan Santoro MD [address] [place] [address] PCP - General 01/20/21 Dalton Hurley MD [address] [place] [address] Consulting Physician Radiation Therapy 03/27/21 Geovanny Dominguez MD [address] [place] [address] Surgeon Neurosurgery 05/21/21 Rudolph Dillard MD [address] [phone] Consulting Physician Medical Oncology 09/22/21 Abdiel Vargas APRN 800 [facility] [address] [place] [address] Nurse Practitioner Internal Medicine 04/09/22 Rodney Maria MD [address] [address] Referring Physician 11/14/24 Brian Flores MD 800 [place] [phone] Consulting Physician Cardiology 11/14/24 documented as of this encounter
--- OUTSIDE RECORDS SUMMARY | 2025-04-02 09:14 | XMS_ITS | Encounter Summary ---
Author Organization [facility] Address [address] [place] [address] Care Team Providers Care Concrete Tile Machine Operator Name Role Phone Wan Santoro MD Primary Care Provider [phone] Dalton Hurley MD Unavailable [phone] Geovanny Dominguez MD Unavailable [phone] Rudolph Dillard MD Unavailable [phone] Abdiel Vargas APRN Unavailable [phone] Rodney Maria MD Unavailable [phone] Brian Flores MD Unavailable [phone] Reason for Referral * Imaging (Routine) - Closed Specialty Diagnoses / Procedures Referred By Contac t Referred To Contact Radiology Diagnoses Malignant neoplasm metastatic to brain Adenocarcinoma of left lung (CMS/HCC) Procedures MR Head w and wo IV Contrast Rudolph Dillard MD [address] [place] [phone] Phone: tel: fax: Referral ID Status Reason Start Date Expiration Date Visits Re quested Visits Authorized [id number] Closed 12/12/2024 06/13/2026 1 1 Reason for Visit * Imaging (Routine) - Closed Specialty Diagnoses / Procedures Referred By Contac t Referred To Contact Radiology Diagnoses Malignant neoplasm metastatic to brain Adenocarcinoma of left lung (CMS/HCC) Procedures MR Head w and wo IV Contrast Rudolph Dillard MD [address] [address] Phone: tel: fax: Referral ID Status Reason Start Date Expiration Date Visits Re quested Visits Authorized [id number] Closed 12/12/2024 06/13/2026 1 1 Encounter Details Date Type Department Care Team (Latest Contact Info) Description 04/02/2025 9:14 AM EDT - 04/02/2025 11:59 PM EDT Hospital Encounter [facility] [address] [place] [address] 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); Adenocarcinoma [...] Description 04/19/2025 8:15 AM EDT Hospital Encounter [facility] Operating Room [address] [place] [address] Abdelrahman Betancur MD [address] [address] 04/19/2025 8:15 AM EDT - 04/19/2025 10:40 AM EDT Surgery [facility] Operating Room [address] [place] [address] Abdelrahman Betancur MD [address] [employer] [address] [address] ARTHROPLASTY, HIP, TOTAL, ANTERIOR APPROACH [68030 (CPT )] 05/03/2025 9:00 AM EDT Office Visit Medical Office Building [facility] [address] [facility], [address] [place] [address] Renetta Stoner PA [address] [facility] [address] [place] [address] 06/04/2025 11:00 AM EST Office Visit Medical Office Building [facility] [address] [facility], [address] [place] [address] Abdelrahman Betancur MD [address] [facility] [address] [place] [address] 06/25/2025 12:10 PM EST Appointment [facility] [address]nd [place] [phone] 06/25/2025 1:00 PM EST Appointment [facility] [address], 1st [place] [address] 06/25/2025 2:15 PM EST Clinical Support [facility] [address] [facility] [place] [address] 06/25/2025 2:40 PM EST Office Visit [facility] [address] [facility], [address] [place] [address] Rudolph Dillard MD [address] [address] 01/08/2026 2:00 PM EDT Appointment Medical Office Building Cardiac Diagnostic Testing Medical Office Building Echo Lab [address] [facility], [address] [place] [address] 01/08/2026 3:00 PM EDT Office Visit [facility] [address] [facility], [address] [place] [phone] Dian Yancey PA [address] [place] [address] Scheduled Procedures Name Priority Associated Diagnoses Date/Ti me ARTHROPLASTY, HIP, TOTAL, ANTERIOR APPROACH Arthritis of right hip 04/19/2025 8:15 AM EDT documented as of this encounter Procedures Procedure Name Priority Date/Time Associated Diagnosis Comments MR HEAD W AND WO IV CONTRAST Routine 04/02/2025 10:38 AM EDT 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) Adenocarcinoma of left lung (CMS/HCC) documented in this encounter Results * MR Head w and wo IV Contrast (04/02/2025 10:38 AM EDT) Anatomical Region Laterality Modality Head Magnetic Resonan ce Impressions 04/03/2025 3:31 PM EDT 1. No evidence of recurrent or residual intracranial metastatic disease. The results were faxed/finalized only (3:30 PM ET). If you would like to discuss this case directly please call to review. Case finalized on %CURRENTDATELTZOlivia Mahmood M.D. This report has been electronically [...] error, please notify the sender immediately at [phone] and permanently delete the original report and destroy any copies or printouts. Narrative 04/03/2025 3:31 PM EDT [facility] - Phone Outpatient NAME: Priya Lynn DATE OF EXAM: 04/02/2025 Patient No: [id number] Physician: Nishant^Rudolph^Silvia Date of : 1955 Past Medical/Surgical History (entered by technologist): Symptoms/Reason For Exam (entered by technologist): cancer evaluation Tech Notes (entered by technologist): Malignant neoplasm metastatic to brain Adenocarcinoma of left lung Additional History (per [facility]): Contrast Agent and Dose: 8.4 mL Gadavist IV Comparison: MRI brain 12/11/2024 Technique: Multiplanar, Multisequence MRI through the brain was performed without and with intravenous contrast. MRI BRAIN WITHOUT AND WITH GADOLINIUM FINDINGS: Diagnostic quality: Adequate Brain: No intra-axial or extra-axial enhancing metastatic disease. No masslike T2 or FLAIR signal abnormalities. No acute infarct. No acute intracranial hemorrhage or collection. No new microhemorrhages. Ventricles and sulci: Mild global cortical volume loss for the patient's age of 69 years. No hydrocephalus midline shift or herniation. Vasculature: Major intracranial vascular flow voids maintained on T2-weighted sequences. Arachnoid granulations appreciated involving the left transverse sinus and superior sagittal sinus. Sinuses: Well aerated. Osseous structures and soft tissues: No acute findings. Procedure Note Randa Mahmood MD - 04/03/2025 [facility] - Phone Outpatient NAME: Priya Lynn DATE OF EXAM: 04/02/2025 Patient No: [id number] Physician: Nishant^Rudolph^Silvia Date of : 1955 Past Medical/Surgical History (entered by technologist): Symptoms/Reason For Exam (entered by technologist): cancer evaluation Tech Notes (entered by technologist): Malignant neoplasm metastatic tobrain Adenocarcinoma of left lung Additional History (per [facility]): Contrast Agent and Dose: 8.4 mL Gadavist IV Comparison: MRI brain 12/11/2024 Technique: Multiplanar, Multisequence MRI through the brain was performedwithout and with intravenous contrast. MRI BRAIN WITHOUT AND WITH GADOLINIUM FINDINGS: Diagnostic quality: Adequate Brain: No intra-axial or extra-axial enhancing metastatic disease. Nomasslike T2 or FLAIR signal abnormalities. No acute infarct. No acute intracranial hemorrhage or collection. No newmicrohemorrhages. Ventricles and sulci: Mild global cortical volume loss for the patient'barbara of 69 years. No hydrocephalus midline shift or herniation. Vasculature: Major intracranial vascular flow voids maintained onT2-weighted sequences. Arachnoid granulations appreciated involving theleft transverse sinus and superior sagittal sinus. Sinuses: Well aerated. Osseous structures and soft tissues: No acute findings. IMPRESSION: 1. No evidence of recurrent or residual intracranial metastaticdisease. The results were faxed/finalized only (3:30 PM ET). If you would like todiscuss this case directly please call to review. Case finalized on %CURRENTDATELTZ% Randa Mahmood M.D. This report has been [...] in error, pleasenotify the sender immediately at [phone] and permanently delete theoriginal report and destroy any copies or printouts. us Rudolph Dillard MD IMG MRI PROCEDURES Final Resul t documented in this encounter Visit Diagnoses Diagnosis Malignant neoplasm metastatic to brain Adenocarcinoma of left lung (CMS/HCC) Arthritis of right hip documented in this encounter Administered Medications Inactive Administered Medications - up to 3 most recent administrations Medication Order MAR Action Action Date Dose Rate Site gadobutrol (Gadavist) injection 8.4 mL 8.4 mL (rounded from 8.42 mL = 0.1 mL/kg 84.2 kg), Intravenous, Once in imaging, 1 dose, Starting on Tue04/02/25 at 0953, Until Tue04/02/25 at 1022, Routine, Imaging Protocol Orders Given 04/02/2025 10:22 AM EDT 8.4 mL Righ t Hand documented in this encounter Additional Health Concerns Assessment Noted Time PHQ-9 Depression Total Score: 0 03/06/20 25 11:18 AM EDT A fall risk assessment has been complete d for the patient 04/02/2025 12:23 PM EDT A Body Mass Index follow-up plan has been documented for the patient 03/26/2025 4:05 PM EDT documented as of this encounter Care Teams Concrete Tile Machine Operator Relationship Specialty Start Date End Date Wan Santoro MD [facility] [address] [place] [address] PCP - General 01/20/21 Dalton Hurley MD 800 [facility] [address] [place] [address] Consulting Physician Radiation Therapy 03/27/21 Geovanny Dominguez MD [address] [facility] [address] [place] [address] Surgeon Neurosurgery 05/21/21 Rudolph Dillard MD [address] [address] Consulting Physician Medical Oncology 09/22/21 Abdiel Vargas, FIELD RADIO TECHNICIAN 800 [facility] [address] [place] [phone] Nurse Practitioner Internal Medicine 04/09/22 Rodney Maria MD [address] [id number] Referring Physician 11/14/24 Brian Flores MD [address] [place] [address] Consulting Physician Cardiology 11/14/24 documented as of this encounter
--- OUTSIDE RECORDS SUMMARY | 2025-04-02 13:15 | XMS_ITS | Encounter Summary ---
Author Organization [facility] Address [address] [place] [address] Care Team Providers Care Automobile Appraiser Name Role Phone Wan Santoro MD Primary Care Provider [phone] Dalton Hurley MD Unavailable [phone] Geovanny Dominguez MD Unavailable [phone] Rudolph Dillard MD Unavailable [phone] Abdiel Vargas APRN Unavailable [phone] Rodney Maria MD Unavailable [phone] Brian Flores MD Unavailable [phone] Reason for Visit * Reason Comments Labs Encounter Details Date Type Department Care Team (Latest Contact Info) Description 04/02/2025 1:15 PM EDT Clinical Support [facility] [address]nd [place] [address] 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); Adenocarcinoma of left lung (CMS/HCC) Social History [...] [facility] Operating Room [address] [place] [address] Abdelrahman Betancur MD [address] [place] [address] 04/19/2025 8:15 AM EDT - 04/19/2025 10:40 AM EDT Surgery [facility] Operating Room [address] [place] [address] Abdelrahman Betancur MD [address] [place] [address] ARTHROPLASTY, HIP, TOTAL, ANTERIOR APPROACH [33322 (CPT )] 05/03/2025 9:00 AM EDT Office Visit Medical Office Building Surgery [facility] [address] [facility], [address] [place] [address] Renetta Stoner PA [address] [place] [address] 06/04/2025 11:00 AM EST Office Visit Medical Office Building [facility] [address] [place] [address] Abdelrahman Betancur MD [address] [place] [address] 06/25/2025 12:10 PM EST Appointment [facility] [address], [address]nd [place] [address] 06/25/2025 1:00 PM EST Appointment [facility] [address], 1st [place] [address] 06/25/2025 2:15 PM EST Clinical Support [facility] [address] [facility], [address] [place] [address] 06/25/2025 2:40 PM EST Office Visit [facility] [address] [facility], [address] [place] [address] Rudolph Dillard MD [address] [address] 01/08/2026 2:00 PM EDT Appointment Medical Office Building Cardiac Diagnostic Testing Medical Office Building Echo Lab [address] [facility], [address] [place] [address] 01/08/2026 3:00 PM EDT Office Visit [facility] [place] [address] [facility], [address] [place] [address] Dian Yancey PA 800 [place] [address] Scheduled Procedures Name Priority Associated Diagnoses Date/Ti me ARTHROPLASTY, HIP, TOTAL, ANTERIOR APPROACH Arthritis of right hip 04/19/2025 8:15 AM EDT documented as of this encounter Procedures Procedure Name Priority Date/Time Associated Diagnosis Comments CBC WITH AUTO DIFFERENTIAL Routine 04/02/2025 12:30 PM EDT 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) Adenocarcinoma of left lung (CMS/HCC) COMPREHENSIVE METABOLIC PANEL, PLASMA Routine 04/02/2025 12:30 PM EDT 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) Adenocarcinoma of left lung (CMS/HCC) documented in this encounter Results * (ABNORMAL) CBC and Differential (04/02/2025 12:30 PM EDT) [facility] Signature WBC Count 6.57 3.70 - 10.30 10*3/uL LAB HEMATOLOGY METHOD 04/02/2025 1:03 PM EDT [facility] RBC Count 3.69(L) 3.90 - 5.20 10*6/uL LAB HEMATOLOGY METHOD 04/02/2025 1:03 PM EDT [facility] HGB 11.0(L) 11.2 - 15.7 g/dL LAB HEMATOLOGY METHOD 04/02/2025 1:03 PM EDT [facility] HCT 34.3 34.0 - 45.0 % LAB HEMATOLOGY METHOD 04/02/2025 1:03 PM EDT [facility] Platelet Count 245 155 - 369 10*3/uL LAB HEMATOLOGY METHOD 04/02/2025 1:03 PM EDT [facility] MCV 93 79 - 98 fL LAB HEMATOLOGY METHOD 04/02/2025 1:03 PM EDT [facility] MCH 29.8 26.0 - 32.0 pg LAB HEMATOLOGY METHOD 04/02/2025 1:03 PM EDT [facility] MCHC 32.1 30.7 - 35.5 g/dL LAB HEMATOLOGY METHOD 04/02/2025 1:03 PM EDT [facility] RDW 13.8 11.5 - 14.5 % LAB HEMATOLOGY METHOD 04/02/2025 1:03 PM EDT [facility] MPV 9.8 8.8 - 12.5 fL LAB HEMATOLOGY METHOD 04/02/2025 1:03 PM EDT [facility] nRBC 0.0 <=0.0 per 100 WBCs LAB HEMATOLOGY METHOD 04/02/2025 1:03 PM EDT [facility] Differential Type Automated LAB HEMATOLOGY METHOD 04/02/2025 1:03 PM EDT [facility] Neutrophils % 72 % LAB HEMATOLOGY METHOD 04/02/2025 1:03 PM EDT [facility] Lymphocytes % 19 % LAB HEMATOLOGY METHOD 04/02/2025 1:03 PM EDT [facility] Monocytes % 6 % LAB HEMATOLOGY METHOD 04/02/2025 1:03 PM EDT [facility] Eosinophils % 2 % LAB HEMATOLOGY METHOD 04/02/2025 1:03 PM EDT [facility] Basophils % 1 % LAB HEMATOLOGY METHOD 04/02/2025 1:03 PM EDT [facility] Immature Granulocytes % 0 % LAB HEMATOLOGY METHOD 04/02/2025 1:03 PM EDT [facility] Neutrophils Absolute 4.78 1.60 - 6.10 10*3/uL LAB HEMATOLOGY METHOD 04/02/2025 1:03 PM EDT [facility] Lymphocytes Absolute 1.22 1.20 - 3.90 10*3/uL LAB HEMATOLOGY METHOD 04/02/2025 1:03 PM EDT [facility] Monocytes Absolute 0.40 0.30 - 0.90 10*3/uL LAB HEMATOLOGY METHOD 04/02/2025 1:03 PM EDT [facility] Eosinophils Absolute 0.12 0.00 - 0.50 10*3/uL LAB HEMATOLOGY METHOD 04/02/2025 1:03 PM EDT [facility] Basophils Absolute 0.03 0.00 - 0.10 10*3/uL LAB HEMATOLOGY METHOD 04/02/2025 1:03 PM EDT [facility] Immature Granulocytes Absolute 0.02 0.00 - 0.06 10*3/uL LAB HEMATOLOGY METHOD 04/02/2025 1:03 PM EDT [facility] Blood Venous blood specimen / Unknown Venipuncture / Unknown 04/02/2025 12:30 PM EDT 04/02/2025 12:52 PM EDT Narrative [facility] - 04/02/2025 1:03 PM EDT Therapeutic decision making should be based on absolute values, rather than percentages. us Rudolph Dillard MD LAB BLOOD ORDERABLES Final Res ult [facility] [address] [place] [address] * Comprehensive Metabolic Panel, Plasma (04/02/2025 12:30 PM EDT) Glucose, Plasma 92 74 - 99 mg/dL 04/02/2025 1:29 PM EDT [facility] BUN, Plasma 19 8 - 23 mg/dL 04/02/2025 1:29 PM EDT [facility] Creatinine, Plasma 0.78 0.60 - 1.10 mg/dL 04/02/2025 1:29 PM EDT [facility] BUN/Creatinine Ratio 24 04/02/2025 1:29 PM EDT [facility] Sodium, Plasma 141 136 - 145 mmol/L 04/02/2025 1:29 PM EDT [facility] Potassium, Plasma 4.3 3.6 - 4.9 mmol/L 04/02/2025 1:29 PM EDT [facility] Chloride, Plasma 106 97 - 107 mmol/L 04/02/2025 1:29 PM EDT [facility] CO2, Plasma 24 22 - 29 mmol/L 04/02/2025 1:29 PM EDT [facility] Anion Gap 11 6 - 16 mmol/L 04/02/2025 1:29 PM EDT [facility] Total Calcium, Plasma 9.8 8.9 - 10.2 mg/dL 04/02/2025 1:29 PM EDT [facility] Total Protein 7.2 6.3 - 7.9 g/dL 04/02/2025 1:29 PM EDT [facility] Albumin, Plasma 4.4 3.5 - 5.2 g/dL 04/02/2025 1:29 PM EDT [facility] AST, Plasma 24 10 - 35 U/L 04/02/2025 1:29 PM EDT [facility] ALT, Plasma 13 10 - 35 U/L 04/02/2025 1:29 PM EDT [facility] Alkaline Phosphatase, Plasma 107 46 - 142 U/L 04/02/2025 1:29 PM EDT [facility] Total Bilirubin, Plasma 0.5 0.2 - 1.1 mg/dL 04/02/2025 1:29 PM EDT [facility] eGFRcr 81.8 mL/min/1.7 3m*2 04/02/2025 1:29 PM EDT [facility] Comment:Reported eGFRcr in m L/min/1.73m2 is based the CKD-EPI 2020 equation that does not use a race coefficient. Blood Venous blood specimen / Unknown Venipuncture / Unknown 04/02/2025 12:30 PM EDT 04/02/2025 12:50 PM EDT us Rudolph Dillard MD LAB BLOOD ORDERABLES Final Res ult [facility] [address] [place] [address] documented in this encounter Visit Diagnoses Diagnosis [...] documented as of this encounter Care Teams Automobile Appraiser Relationship Specialty Start Date End Date Wan Santoro MD [address] [place] [address] [address] [place] [address] PCP - General 01/20/21 Dalton Hurley MD 800 [facility] [address] [place] [address] Consulting Physician Radiation Therapy 03/27/21 Geovanny Dominguez MD [address] [facility] [address] [place] [address] Surgeon Neurosurgery 05/21/21 Rudolph Dillard MD [address] [place] [address] Consulting Physician Medical Oncology 09/22/21 Abdiel Vargas, PRERNA [address] [place] [phone] Nurse Practitioner Internal Medicine 04/09/22 Rodney Maria MD [address] [address] Referring Physician 11/14/24 Brian Flores MD [address] [place] [address] Consulting Physician Cardiology 11/14/24 documented as of this encounter
--- OUTSIDE RECORDS SUMMARY | 2025-04-02 13:40 | XMS_ITS | Encounter Summary ---
Author Organization [facility] Address [address] [place] [address] Care Team Providers Care Automotive Sales Associate Name Role Phone Wan Santoro MD Primary Care Provider [phone] Dalton Hurley MD Unavailable [phone] Geovanny Dominguez MD Unavailable [phone] Rudolph Dillard MD Unavailable [phone] Abdiel Vargas APRN Unavailable [phone] Rodney Maria MD Unavailable [phone] Brian Flores MD Unavailable [phone] Reason for Visit * Reason Comments Follow-up Encounter Details Date Type Department Care Team (Latest Contact Info) Description 04/02/2025 1:40 PM EDT Office Visit Pav [facility] Head[facility] Neck & Respiratory 800 [facility], 2nd [place] [address] Rudolph Dillard MD [address] [address] 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) (Primary Dx); Adenocarcinoma of left lung (CMS/HCC); Encounter for antineoplastic chemotherapy Social History Tobacco [...] Sign Reading Time Taken Comments Blood Pressure 119/69 04/02/2025 12:21 PM EDT Pulse 87 04/02/2025 12:21 PM EDT Temperature - - Respiratory Rate 16 04/02/2025 12:21 PM EDT Oxygen Saturation 98% 04/02/2025 12:21 PM EDT Inhaled Oxygen Concentration - - Weight 81.2 kg (179 lb 0.2 oz) 04/02/2025 12:21 PM EDT Height 165 cm (5' 4.96 ) 04/02/2025 12:21 PM EDT Body Mass Index 29.83 04/02/2025 12:21 PM EDT documented in this encounter Miscellaneous Notes * Progress Notes - Ramsey Hill MD - 04/02/2025 1:40 PM EDT Priya Lynn is a 69 [...] here today to review CT and MRI 02/17/21 started osimertinib 03/05/21 Gamma Knife left temporal lesion 04/23/22 stereotactic radiation left upper lobe lesions 12/27/24 TAVR for severe arotic stenosis On 02/11/25 she had left hip arthroplasty with plan for right arthroplasty on 04/08/25. Osimertinib has been held since January for these procedures Interval Hx: History of Present Illness The patient is a female who presents for follow-up regarding her lung cancer. She is accompanied byher brother. She reports feeling well overall. No new headaches, changes in vision or hearing, balance issues, nausea, vomiting, diarrhea, chest pain, or breathing difficulties have been experienced. Osimertinib was discontinued on 01/28/2025 due to a scheduled hip surgery. The left hip was replaced on 02/11/2025, and preparation is underway for a right hip replacement on 04/08/2025. Resumption of osimertinibis advised once the surgical wound has healed. However, discontinuation of the medication occurred two weeks prior to the next surgery, and it has not yet been resumed. She still has some osimertinibat home and plans to contact her pharmacy. all remaining 14 point ROS negative. PMH: Uterine and ovarian CA in 2005. HTN PSH: Left hip replacement on 02/11/2025. Right hip replacement scheduled for 04/08/2025. FH: father lung cancer, brother lung cancer NKDA SH: never smoker PE Visit Vitals BP 119/69 (BP Location: Left arm, Patient Position: Sitting) Pulse 87 Resp 16 Ht 1.65 m (5' 4.96 ) Wt 81.2 kg (179 lb 0.2 oz) SpO2 98% BMI 29.83 kg/m?? OB Status Hysterectomy Smoking Status Never BSA 1.93 m?? Alert and NAD PERRL, EOMI MMM No palpable Lns RRR syctolic murmur appreciated CTA inpiratory shorter than expiratory Soft NT BS+ LE no edema Neuro grossly intact No rash Psych normal affect Results: WBC Count (10*3/uL) Date/Time Value 04/02/2025 1230 6.57 HGB (g/dL) Date/Time Value 04/02/2025 1230 11.0 (L) Platelet Count (10*3/uL) Date/Time Value 04/02/2025 1230 245 Creatinine, Plasma (mg/dL) Date/Time Value 04/02/2025 1230 0.78 AST, Plasma (U/L) Date/Time Value 04/02/2025 1230 24 ALT, Plasma (U/L) Date/Time Value 04/02/[address] shows stable lung mass no recurrence MRI shows no recurrence, final radiology read pending A/P: 69 yo with advanced adeno EGFR mutated NSCLC on osimertinib since 02/17/21 with single met to brain on s/p Gamma Knife 03/02/21. A PET/CT showing no active lesions other than the primary so she had s/p SBRT to the WILLIAM mass 04/23/22 after which continuing osimertinib. No evidence of recurrence on today's scans. Cancer: osimeritinib currently held for upcoming hip replacement. Resume after procedure at direction of orthopedic team repeat CT in 4 months Brain met treated with xrt. no evidence recurrence on personal review, final rad report pending repeat MRI in 4 month Arthritis: S/p Left CLAY 02/11/25 Right CLAY scheduled 04/08/25 Arotic stenosis s/p TAVR 12/27/24, follows with cards HTN Obesity. Can consider GLP1 agonist in future. Had discussed on prior visits. PS 1 RTC in 4 months Spent more than 40 minutes reviewing data, imaging h/p planning discussing documenting Ramsey Hill MD Hematology/Oncology Fellow, PGY5 04/02/2025 Patient discussed in detail and seen with Dr. Dillard Cosigned by Rudolph Dillard MD at 04/02/2025 10:01 PM EDT Associated attestation - Rudolph Dillard MD - 04/02/2025 10:01 PM EDT I saw and evaluated the patient with the resident/fellow. I discussed the case with the resident/fellow and agree with the findings and plan as documented. * Progress Notes - Greg Andujar, PharmD - 04/02/2025 1:40 PM EDT Pharmacy Hematology/Oncology Treatment Follow-Up Note [...] Patient will continue current therapy with osimertinib. 04/01/25: Ms. Lynn was seen in clinic today and is doing well. Patient has been holding osimertinib since mid January due to orthopedic surgery planned for this upcoming Tuesday. Patient currently has10 tablets of osimertinib left. Patient to continue to hold osimertinib at the direction of orthopedics. Today's Weight: Wt Readings from Last 2 Encounters: 04/02/25 81.2 kg (179 lb 0.2 oz) 03/26/25 84.2 kg (185 lb 10 oz) Recent Labs: Lab Results Component Value Date WBC 6.57 04/02/2025 HGB 11.0 (L) 04/02/2025 HCT 34.3 04/02/2025 MCV 93 04/02/2025 PLT 245 04/02/2025 Lab Results Component Value Date GLUCOSE 92 04/02/2025 CALCIUM 9.8 04/02/2025 NA 141 04/02/2025 K 4.3 04/02/2025 CO2 24 04/02/2025 CL 106 04/02/2025 BUN 19 04/02/2025 CREATININE 0.78 04/02/2025 Lab Results Component Value Date ALT 13 04/02/2025 AST 24 04/02/2025 ALKPHOS 107 04/02/2025 BILITOT 0.5 04/02/2025 Lab Results Component Value Date NEUTROABS 4.78 04/02/2025 Vitals: Visit Vitals BP 119/69 (BP Location: Left arm, Patient Position: Sitting) Pulse 87 Resp 16 Study Patient: no Treatment Plan: Osimertinib 80mg daily [x] No dose adjustments made Current Treatment Plan History: 02/17/21 - present HELD mid January - current Prior Treatment History: none Assessment/Plan: Current dose: osimertinib 80mg daily Sent to: [facility] Refills due: Pt currently has 10 tablets left and is holding medication until after surgical procedure. To reevaluate at next clinic appointment in April Patient will return to clinic in 4 months w/scans. Will follow-up at that time. Pharmacist Attestation: Greg Andujar PharmD documented in this encounter Plan of Treatment Upcoming Encounters Date Type Department Care Team (Late st Contact Info) Description 04/19/2025 8:15 AM EDT Hospital Encounter [facility] S Operating Room [address] [place] [address] Abdelrahman Betancur MD [address] [place] [address] 04/19/2025 8:15 AM EDT - 04/19/2025 10:40 AM EDT Surgery [facility] Operating Room [address] [place] [address] Abdelrahman Betancur MD [address] [place] [address] ARTHROPLASTY, HIP, TOTAL, ANTERIOR APPROACH [91790 (CPT )] 05/03/2025 9:00 AM EDT Office Visit Medical Office Building [facility] [address], [address] [place] [address] Renetta Stoner PA [address] [place] [address] 06/04/2025 11:00 AM EST Office Visit Medical Office Building [facility] [address], [address] [place] [address] Abdelrahman Betancur MD 125 E [facility] 201 [place] [address] 06/25/2025 12:10 PM EST Appointment [facility] [address], 2nd [place] [address] 06/25/2025 1:00 PM EST Appointment [facility] S Radiology [address], 1st [place] [address] 06/25/2025 2:15 PM EST Clinical Support Pav [facility] Head, Neck & Respiratory 800 [facility], [address]nd [place] [address] 06/25/2025 2:40 PM EST Office Visit Pav [facility] Head[facility] Neck & Respiratory 800 [facility], [address] [place] [address] Rudolph Dillard MD 800 [facility] 2nd [place] [address] 01/08/2026 2:00 PM EDT Appointment Medical Office Building Cardiac Diagnostic Testing Medical Office Building Echo Lab [address] [facility], [address] [place] [address] 01/08/2026 3:00 PM EDT Office Visit [facility] [place] [address] [facility], [address] [place] [address] Dian Yancey PA 800 [place] [address] Scheduled Procedures Name Priority Associated Diagnoses Date/Ti me ARTHROPLASTY, HIP, TOTAL, ANTERIOR APPROACH Arthritis of right hip 04/19/2025 8:15 AM EDT documented as of this encounter Visit Diagnoses Diagnosis Malignant neoplasm metastatic to brain- Primary Adenocarcinoma of left lung (CMS/HCC) Encounter for antineoplastic chemotherapy Arthritis of right hip documented in this encounter Additional Health Concerns Assessment Noted Time PHQ-9 Depression Total Score: 0 08/20/20 25 11:18 AM EDT A fall risk assessment has been complete d for the patient 04/02/2025 12:23 PM EDT A Body Mass Index follow-up plan has been documented for the patient 03/26/2025 4:05 PM EDT documented as of this encounter Care Teams Automotive Sales Associate Relationship Specialty Start Date End Date Wan Santoro MD 1210 [facility] [address] [place] [address] PCP - General 01/20/21 Dalton Hurley MD 800 [facility] [address] [place] [address] Consulting Physician Radiation Therapy 03/27/21 Geovanny Dominguez MD [address] [place] [address] Surgeon Neurosurgery 05/21/21 Rudolph Dillard MD 800 [facility] [address]nd [place] [address] Consulting Physician Medical Oncology 09/22/21 Abdiel Vargas APRN 800 [facility] [address] [place] [address] Nurse Practitioner Internal Medicine 04/09/22 Rodney Maria MD 1210 [facility] [address] [place] [address] Referring Physician 11/14/24 Brian Flores MD 800 [place] [address] Consulting Physician Cardiology 11/14/24 documented as of this encounter
--- NOTE | 2025-04-15 13:08 | XR_ITS ---
FINAL REPORT CLINICAL HISTORY: Left shoulder pain COMPARISON: None FINDINGS: LEFT SHOULDER Three views of the left shoulder were obtained. There is no acute fracture or dislocation. There are mild hypertrophic changes at the acromioclavicular joint. There is calcification or ossification superior to the greater tuberosity, which may be related to calcific or ossific tendinitis. Soft tissues are unremarkable. IMPRESSION: Mild hypertrophic changes of osteoarthritis. Calcification or ossification greater tuberosity may be related to calcific or ossific tendinitis. Reviewed, Interpreted and Dictated by Woody Cotter MD Transcribed by Gracie Taylor Authenticated and [facility]
--- OUTSIDE RECORDS SUMMARY | 2025-04-15 13:08 | XMS_ITS | Encounter Summary ---
Author Organization [facility] Address [address] [place] [address] Care Team Providers Care Safety Officer Name Role Phone Wan Santoro MD Primary Care Provider Dalton Hurley MD Unavailable [phone] Geovanny Dominguez MD Unavailable [phone] Rudolph Dillard MD Unavailable Abdiel Vargas APRN Unavailable [phone] Rodney Maria MD Unavailable [phone] Brian Flores MD Unavailable [phone] Reason for Referral * Consultation (Routine) - Closed Specialty Diagnoses / Procedures Referred By [place] Referred To Contact Orthopaedic Surgery Diagnoses Primary osteoarthritis of both hips Lan Justin DO [address] [place] [address] [place] [address] Phone: tel: fax: Abdelrahman Betancur MD [address] [place] [address] Phone: tel: fax: Referral ID Status Reason Start Date Expiration Date Visits Re quested Visits Authorized [id number] Closed 07/19/2024 01/18/2026 1 1 Encounter Details Date Type Department Care Team (Latest Contact Info) Description 07/19/2024 Community [facility] 800 [place] [address] Lan Justin, DO [address] [place] [address] [place] [address] Primary osteoarthritis of both hips (Primary Dx) [...] Description 04/19/2025 8:15 AM EDT Hospital Encounter [facility] S Operating Room [address] [place] [address] Abdelrahman Betancur MD [address] [address] 04/19/2025 8:15 AM EDT - 04/19/2025 10:40 AM EDT Surgery [facility] S Operating Room 310 [place] [address] Abdelrahman Betancur MD [address] [address] ARTHROPLASTY, HIP, TOTAL, ANTERIOR APPROACH [05257 (CPT )] 05/03/2025 9:00 AM EDT Office Visit Medical Office Building [facility] [address], [address] [place] [address] Renetta Stoner PA [address] [place] [address] 06/04/2025 11:00 AM EST Office Visit Medical Office Building [facility] [address] [facility], [address] [place] [address] Abdelrahman Betancur MD 125 E [facility] 201 [place] [address] 06/25/2025 12:10 PM EST Appointment [facility] [place] [facility] [address], 2nd [place] [address] 06/25/2025 1:00 PM EST Appointment [facility] Radiology [address], 1st [place] [address] 06/25/2025 2:15 PM EST Clinical Support Pav CC Head, Neck & Respiratory 800 [facility], [address]nd [place] [address] 06/25/2025 2:40 PM EST Office Visit Pav [facility] Head[facility] Neck & Respiratory 800 [facility], [address] [place] [address] Rudolph Dillard MD 800 [facility] [address] [place] [address] 01/08/2026 2:00 PM EDT Appointment Medical Office Building Cardiac Diagnostic Testing Medical Office Building Echo Lab [address] [facility], [address] [place] [address] 01/08/2026 3:00 PM EDT Office Visit [facility] [place] [address] [facility], [address] [place] [address] Dian Yancey PA 800 [place] [address] Scheduled Procedures Name Priority Associated Diagnoses Date/Ti me ARTHROPLASTY, HIP, TOTAL, ANTERIOR APPROACH Arthritis of right hip 04/19/2025 8:15 AM EDT Scheduled Referrals Name Type Priority [...] documented as of this encounter Care Teams Safety Officer Relationship Specialty Start Date End Date Wan Santoro MD [address] [place] [address] PCP - General 01/20/21 Dalton Hurley MD 800 [facility] [address] [place] [address] Consulting Physician Radiation Therapy 03/27/21 Geovanny Dominguez MD [address] [place] [address] [address] [place] [address] Surgeon Neurosurgery 05/21/21 Rudolph Dillard MD [address] [address] Consulting Physician Medical Oncology 09/22/21 Abdiel Vargas, DOUGH PUNCHER 800 [facility] [address] [place] [address] Nurse Practitioner Internal Medicine 04/09/22 Rodney Maria MD 1210 [facility] [address] [place] [address] Referring Physician 11/14/24 Brain Flores MD 800 [place] [address] Consulting Physician Cardiology 11/14/24 documented as of this encounter
--- OUTSIDE RECORDS SUMMARY | 2025-04-15 13:08 | XMS_ITS | Encounter Summary ---
Author Organization [facility] Address [address] [place] [address] Care Team Providers Care Tassel Maker Name Role Phone Wan Santoro MD Primary Care Provider [phone] Dalton Hurley MD Unavailable [phone] Geovanny Dominguez MD Unavailable [phone] Rudolph Dillard MD Unavailable [phone] Abdiel Vargas APRN Unavailable [phone] Rodney Maria MD Unavailable [phone] Brian Flores MD Unavailable [phone] Encounter Details Date Type Department Care Team (Latest Contact Info) Description 04/05/2025 Travel Social History Tobacco Use Types Packs/Day [...] [facility] Operating Room [address] [place] [address] Abdelrahman Betancur MD [address] [place] [address] 04/19/2025 8:15 AM EDT - 04/19/2025 10:40 AM EDT Surgery [facility] Operating Room [address] [place] [address] Abdelrahman Betancur MD [address] [place] [address] ARTHROPLASTY, HIP, TOTAL, ANTERIOR APPROACH [91584 (CPT )] 05/03/2025 9:00 AM EDT Office Visit Medical Office Building [facility] [address] [place] [address] Renetta Stoner PA [address] [place] [address] 06/04/2025 11:00 AM EST Office Visit Medical Office Building [facility] [address], [address] [place] [address] Abdelrahman Betancur MD [address] [place] [address] 06/25/2025 12:10 PM EST Appointment [facility] CT [address], 2nd [place] [address] 06/25/2025 1:00 PM EST Appointment [facility] S Radiology [address], 1st [place] [address] 06/25/2025 2:15 PM EST Clinical Support Pav CC Head[facility] Neck & Respiratory 800 [facility], 2nd [place] [address] 06/25/2025 2:40 PM EST Office Visit Pav [facility] Head[facility] Neck & Respiratory 800 [facility], 2nd [place] [address] Rudolph Dillard MD 800 [facility] 2nd [place] [address] 01/08/2026 2:00 PM EDT Appointment Medical Office Building Cardiac Diagnostic Testing Medical Office Building Echo Lab [address] [facility], [address] [place] [address] 01/08/2026 3:00 PM EDT Office Visit [facility] [place] [address] [facility], [address] [place] [address] Dian Yancey PA 800 [place] [address] Scheduled Procedures Name Priority Associated [...] documented as of this encounter Care Teams Tassel Maker Relationship Specialty Start Date End Date Wan Santoro MD [address] [place] [address] PCP - General 01/20/21 Dalton Hurley MD 800 [facility] [address] [place] [address] Consulting Physician Radiation Therapy 03/27/21 Geovanny Dominguez MD [address] [facility] [address] [place] [address] Surgeon Neurosurgery 05/21/21 Rudolph Dillard MD [address] [address] Consulting Physician Medical Oncology 09/22/21 Abdiel Vargas, IT GENERALIST 800 [facility] 134 [place] [address] Nurse Practitioner Internal Medicine 04/09/22 Rodney Maria MD [address] [address] Referring Physician 11/14/24 Brian Flores MD 800 [place] [address] Consulting Physician Cardiology 11/14/24 documented as of this encounter
--- OUTSIDE RECORDS SUMMARY | 2025-04-15 13:08 | XMS_ITS | Encounter Summary ---
Author Organization [facility] Address [address] [place] [address] Care Team Providers Care Professor Of Music Name Role Phone Wan Santoro MD Primary Care Provider [phone] Dalton Hurley MD Unavailable [phone] Geovanny Dominguez MD Unavailable [phone] Rudolph Dillard MD Unavailable [phone] Abdiel Vargas APRN Unavailable [phone] Rodney Maria MD Unavailable [phone] Brian Flores MD Unavailable [phone] Encounter Details Date Type Department Care Team (Late st Contact Info) Description 11/29/2023 Orders Only External Location 800 [place] [phone] Provider, External Social History Tobacco Use Types [...] Department Care Team (Late Contact Info) Description 04/19/2025 8:15 AM EDT Hospital Encounter [facility] Operating Room 310 [place] [address] Abdelrahman Betancur MD [address] [place] [address] 04/19/2025 8:15 AM EDT - 04/19/2025 10:40 AM EDT Surgery [facility] S Operating Room [address] [place] [address] Abdelrahman Betancur MD [address] [place] [address] ARTHROPLASTY, HIP, TOTAL, ANTERIOR APPROACH [86073 (CPT )] 05/03/2025 9:00 AM EDT Office Visit Medical Office Building [facility] [address] [place] [address] Renetta Stoner PA [address] [place] [address] 06/04/2025 11:00 AM EST Office Visit Medical Office Building [facility] [address] [place] [address] Abdelrahman Betancur MD [address] [place] [address] 06/25/2025 12:10 PM EST Appointment [facility] [address], 2nd [place] [address] 06/25/2025 1:00 PM EST Appointment [facility] S Radiology [address], 1st [place] [address] 06/25/2025 2:15 PM EST Clinical Support Pav CC Head, Neck & Respiratory 800 [facility] 2nd [place] [address] 06/25/2025 2:40 PM EST Office Visit Pav CC Head, Neck & Respiratory 800 [facility] [address]nd [place] [address] Rudolph Dillard MD [address] [address] 01/08/2026 2:00 PM EDT Appointment Medical Office Building Cardiac Diagnostic Testing Medical Office Building Echo Lab [address] [facility], [address] [place] [address] 01/08/2026 3:00 PM EDT Office Visit [facility] [place] [address] [facility], [address] [place] [address] Dian Yancey PA [address] [place] [address] Scheduled Procedures Name Priority Associated [...] documented as of this encounter Care Teams Professor Of Music Relationship Specialty Start Date End Date Wan Santoro MD [address] [place] [address] PCP - General 01/20/21 Dalton Hurley MD [address] [facility] [address] [place] [address] Consulting Physician Radiation Therapy 03/27/21 Geovanny Dominguez MD [address] [place] [address] Surgeon Neurosurgery 05/21/21 Rudolph Dillard MD [address] [place] [address] Consulting Physician Medical Oncology 09/22/21 Abdiel Vargas, MOTOR GENERATOR SET OPERATOR [address] [place] [address] Nurse Practitioner Internal Medicine 04/09/22 Rodney Maria MD [address] [address] Referring Physician 11/14/24 Brian Flores MD 800 [place] [address] Consulting Physician Cardiology 11/14/24 documented as of this encounter
--- OUTSIDE RECORDS SUMMARY | 2025-04-15 13:08 | XMS_ITS | Encounter Summary ---
Author Organization [facility] Address [address] [place] [address] Care Team Providers Care Client Resource Specialist Name Role Phone Wan Santoro MD Primary Care Provider [phone] Dalton Hurley MD Unavailable [phone] Geovanny Dominguez MD Unavailable Rudolph Dillard MD Unavailable [phone] Abdiel Vargas APRN Unavailable [phone] Rodney Maria MD Unavailable [phone] Brian Flores MD Unavailable [phone] Encounter Details Date Type Department Care Team [...] Encounter PAV S Operating Room [address] [place] [address] Abdelrahman Betancur MD [address] [place] [address] 04/19/2025 8:15 AM EDT - 04/19/2025 10:40 AM EDT Surgery PAV S Operating Room [address] [place] [address] Abdelrahman Betancur MD [address] [place] [address] ARTHROPLASTY, HIP, TOTAL, ANTERIOR APPROACH [11038 (CPT )] 05/03/2025 9:00 AM EDT Office Visit Medical Office Building [facility] [address], [address] [place] [address] Renetta Stoner PA [address] [place] [address] 06/04/2025 11:00 AM EST Office Visit Medical Office Building [facility] [address], [address] [place] [address] Abdelrahman Betancur MD [address] [place] [address] 06/25/2025 12:10 PM EST Appointment [facility] [address], 2nd [place] [address] 06/25/2025 1:00 PM EST Appointment [facility] S Radiology [address], 1st [place] [address] 06/25/2025 2:15 PM EST Clinical Support [facility] 800 [facility], 2nd [place] [address] 06/25/2025 2:40 PM EST Office Visit [facility] 800 [facility], [address]nd [place] [address] Rudolph Dillard MD 800 [facility] 2nd [place] [address] 01/08/2026 2:00 PM EDT Appointment Medical Office Building Cardiac Diagnostic Testing Medical Office Building Echo Lab [address] [facility], [address] [place] [address] 01/08/2026 3:00 PM EDT Office Visit [facility] [place] [address] [facility], [address] [place] [address] Dian Yancey PA 800 [place] [address] Scheduled Procedures Name Priority Associated [...] documented as of this encounter Care Teams Client Resource Specialist Relationship Specialty Start Date End Date Wan Santoro MD 1210 [facility] [address] [place] [address] PCP - General 01/20/21 Dalton Hurley MD 800 [facility] [address] [place] [address] Consulting Physician Radiation Therapy 03/27/21 Geovanny Dominguez MD [address] [place] [address] Surgeon Neurosurgery 05/21/21 Rudolph Dillard MD [address] [address] Consulting Physician Medical Oncology 09/22/21 Abdiel Vargas APRN 800 [facility] [address] [place] [address] Nurse Practitioner Internal Medicine 04/09/22 Rodney Maria MD [address]10 [place] [address] Referring Physician 11/14/24 Brian Flores MD 800 [place] [address] Consulting Physician Cardiology 11/14/24 documented as of this encounter
--- OUTSIDE RECORDS SUMMARY | 2025-04-15 13:08 | XMS_ITS | Encounter Summary ---
Author Organization [facility] Address [address] [place] [address] Care Team Providers Care Middleware Developer Name Role Phone Wan Santoro MD Primary Care Provider [phone] Dalton Hurley MD Unavailable [phone] Geovanny Dominguez MD Unavailable [phone] Rudolph Dillard MD Unavailable [phone] Abdiel Vargas APRN Unavailable [phone] Rodney Maria MD Unavailable [phone] Brian Flores MD Unavailable [phone] Reason for Referral * Imaging (Routine) - Pending Review Specialty Diagnoses / Procedures Referred By Contac t Referred To Contact Radiology Diagnoses Malignant neoplasm metastatic to brain Procedures MR Head w and wo IV Contrast Rudolph Dillard MD [address] [address] Phone: tel: fax: Referral ID Status Reason Start Date Expiration Date V isits Requested Visits Authorized [id number] Pending Review 04/05/2025 10/05/2026 1 1 * Imaging (Routine) - Pending Review Specialty Diagnoses / Procedures Referred By Contac t Referred To Contact Radiology Diagnoses Adenocarcinoma of left lung (CMS/HCC) Procedures CT Chest w IV Contrast Rudolph Dillard MD 800 [facility] 2nd [place] [address] Phone: tel: fax: Referral ID Status Reason Start Date Expiration Date V isits Requested Visits Authorized [id number] Pending Review 04/05/2025 10/05/2026 1 1 Encounter Details Date Type Department Care Team ([facility] Contact Info) Description 04/05/2025 Orders Only [facility]ck [facility] Respiratory 800 [facility], 2nd [place] [address] Lakeisha Coleman RN GS - Endoscopy Adenocarcinoma of left lung (CMS/HCC) (Primary Dx); 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) Social History Tobacco [...] Upcoming Encounters Date Type Department Care Team ([facility] Contact Info) Description 04/19/2025 8:15 AM EDT Hospital Encounter PAV S Operating Room [address] [place] [address] Abdelrahman Betancur MD [address] [facility] [address] [place] [address] 04/19/2025 8:15 AM EDT - 04/19/2025 10:40 AM EDT Surgery PAV S Operating Room [address] [place] [address] Abdelrahman Betancur MD [address] [place] [address] ARTHROPLASTY, HIP, TOTAL, ANTERIOR APPROACH [27284 (CPT )] 05/03/2025 9:00 AM EDT Office Visit Medical Office Building [facility] [address] [facility], [address] [place] [address] Renetta Stoner PA [address] [place] [address] 06/04/2025 11:00 AM EST Office Visit Medical Office Building [facility] [address] [facility], [address] [place] [address] Abdelrahman Betancur MD [address] [place] [address] 06/25/2025 12:10 PM EST Appointment [facility] CT [address], [address]nd [place] [address] 06/25/2025 1:00 PM EST Appointment P[facility] S Radiology [address], 1st [place] [address] 06/25/2025 2:15 PM EST Clinical Support [facility]ck [facility] Res[facility] 800 [facility], [address]nd [place] [address] 06/25/2025 2:40 PM EST Office Visit [facility] Res[facility] 800 [facility], [address]nd [place] [address] Rudolph Dillard MD [address] [address] 01/08/2026 2:00 PM EDT Appointment Medical Office Building Cardiac Diagnostic Testing Medical Office Building Echo Lab [address] [facility], [address] [place] [address] 01/08/2026 3:00 PM EDT Office Visit [facility] [place] [address] [facility], [address] [place] [address] Dian Yancey PA 800 [place] [address] Scheduled Orders Name Type Priority Associated Diagnoses Orde r Schedule CT Chest w IV Contrast Imaging Routine Adenocarcinoma of left lung (CMS/HCC) Expected: 07/05/2025, Expires: 10/07/2026 MR Head w and wo IV Contrast Imaging Routine 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) Expected: 07/05/2025, Expires: 10/07/2026 Comprehensive Metabolic Panel, Plasma Lab Routine Adenocarcinoma of left lung (CMS/HCC) Expected: 06/25/2025 (Approximate), Expires: 10/07/2026 CBC and Differential Lab Routine Adenocarcinoma of left lung (CMS/HCC) Expected: 06/25/2025 (Approximate), Expires: 10/07/2026 Scheduled Procedures Name Priority Associated Diagnoses Date/Ti me ARTHROPLASTY, HIP, TOTAL, ANTERIOR APPROACH Arthritis of right hip 04/19/2025 8:15 AM EDT documented as of this encounter Visit Diagnoses Diagnosis Adenocarcinoma of left lung (CMS/HCC)- Primary Malignant neoplasm metastatic to brain Arthritis of right hip documented in this encounter Additional Health Concerns Assessment Noted Time PHQ-9 Depression Total Score: 0 03/06/20 25 11:18 AM EDT A fall risk assessment has been complete d for the patient 04/02/2025 12:23 PM EDT A Body Mass Index follow-up plan has been documented for the patient 03/26/2025 4:05 PM EDT documented as of this encounter Care Teams Middleware Developer Relationship Specialty Start Date End Date Wan Santoro MD [address] [facility] [address] [place] [address] PCP - General 01/20/21 Dalton Hurley MD [address] [facility] [address] [place] [address] Consulting Physician Radiation Therapy 03/27/21 Geovanny Dominguez MD [address] [place] [address] Surgeon Neurosurgery 05/21/21 Rudolph Dillard MD [address] 2[address] [place] [address] Consulting Physician Medical Oncology 09/22/21 Abdiel Vargas, FLOOR FINISHER HELPER [address] [place] [address] Nurse Practitioner Internal Medicine 04/09/22 Rodney Maria MD [address] [address] Referring Physician 11/14/24 Brian Flores MD 800 [place] [address] Consulting Physician Cardiology 11/14/24 documented as of this encounter
--- OUTSIDE RECORDS SUMMARY | 2025-04-15 13:08 | XMS_ITS | Clinical Summary ---
Author Organization [facility] Address [address] [place] [address] Care Team Providers Care Manager Utilization Name Role Phone Wan Santoro MD Primary Care Provider [phone] Family History Medical History Relation Name Comments [...] of 2) 2004 DXA SCAN 06/25/2016 06/25/2014 ANNUAL WELLNESS VISIT 10/26/2024 HEPATITIS C SCREENING 10/26/2024 INFLUENZA VACCINE 02/15/2025 COVID-19 Vaccine ( - 2023-2 5 season) 2025 MAMMOGRAM 10/25/2026 10/25/2024, 09/16, 10/06/2022, Additional history exists TDAP/TD VACCINES (2 [...] Most Recently Relevant to Health Maintenance Insurance [facility] [employer] PPO Care Teams Manager Utilization Relationship Specialty Start Date End Date Wan Santoro MD 1210 [facility] [address] [place] [address] PCP - General Internal Medicine 05/10/16
--- OUTSIDE RECORDS SUMMARY | 2025-04-15 13:08 | XMS_ITS | Encounter Summary ---
Author Organization [facility] Address [address] [place] [address] Care Team Providers Care Rail Operator Name Role Phone Wan Santoro MD Primary Care Provider [phone] Dalton Hurley MD Unavailable [phone] Geovanny Dominguez MD Unavailable [phone] Rudolph Dillard MD Unavailable [phone] Abdiel Vargas APRN Unavailable [phone] Rodney Maria MD Unavailable [phone] Brian Flores MD Unavailable [phone] Encounter Details Date Type Department Care Team (Late st Contact Info) Description 01/26/2021 Lab Requisition [facility] H Lab 800 [place] [address] Rudolph Dillard MD [address] [address] Other nonspecific abnormal finding of [...] Encounter PAV S Operating Room [address] [place] [address] Abdelrahman Betancur MD [address] [place] [address] 04/19/2025 8:15 AM EDT - 04/19/2025 10:40 AM EDT Surgery PAV S Operating Room [address] [place] [address] Abdelrahman Betancur MD [address] [place] [address] ARTHROPLASTY, HIP, TOTAL, ANTERIOR APPROACH [48005 (CPT )] 05/03/2025 9:00 AM EDT Office Visit Medical Office Building [facility] [address], [address] [place] [address] Renetta Stoner PA [address] [place] [address] 06/04/2025 11:00 AM EST Office Visit Medical Office Building [facility] [address], [address] [place] [address] Abdelrahman Betancur MD [address] [place] [address] 06/25/2025 12:10 PM EST Appointment [facility] CT [address], 2nd [place] [address] 06/25/2025 1:00 PM EST Appointment [facility] S Radiology [address], 1st [place] [address] 06/25/2025 2:15 PM EST Clinical Support [facility] Respiratory 800 [facility], [address]nd [place] [address] 06/25/2025 2:40 PM EST Office Visit [facility]ck [facility] Respiratory 800 [facility], 2nd [place] [address] Rudolph Dillard MD 800 [facility] 2nd [place] [address] 01/08/2026 2:00 PM EDT Appointment Medical Office Building Cardiac Diagnostic Testing Medical Office Building Echo Lab [address] [facility], [address] [place] [address] 01/08/2026 3:00 PM EDT Office Visit [facility] [place] [address] [facility], [address] [place] [address] Dian Yancey PA 800 [place] [address] Scheduled Procedures Name Priority Associated [...] 11:03 AM EDT) Case Report Cytology Case: [id number] Authorizing Provider: Rudolph Dillard MD Collected: 01/26/20213 Ordering Location: [facility] Lab Received: 01/26/2021 110 Pathologist: Del Sosa MD Specimen: Lung, OU [id number] 01/27/2021 10:31 AM EDT [facility] Final Diagnosis OUTSIDE SLIDES RECEIVED [...] WITH PULMONARY ADENOCARCINOMA. 01/27/2021 10:31 AM EDT [facility] at 1031 EDT Comment The clinical [...] findings is needed. 01/27/2021 10:31 AM EDT [facility] Clinical Information Left upper lobe lung mass biopsy from outside reportedly showed no alveolated lung, benign bronchial epithelium, and bronchial mucosa; negative for tumor 01/27/2021 10:31 AM EDT [facility] Gross Description A. OU [id number] For clinical data and diagnosis (A. NEGATIVE; B. MALIGNANT; C. MALIGNANT) for this specimen ([id number]/A. FNA; B. FNA; C. FNA) see final report issued by [facility] Pathology Department. 01/27/2021 10:31 AM EDT [facility] Fine Needle Aspirate Lung structure / Unknown 01/26/2021 11:03 AM EDT 01/26/2021 11:03 AM EDT Rudolph Dillard MD LAB PATHOLOGY ORDERABLES Final Result [facility] 800 [place] [address] documented in this encounter Visit Diagnoses Diagnosis Other nonspecific abnormal finding of lung field Arthritis of right hip documented in this encounter Care Teams Rail Operator Relationship Specialty Start Date End Date Wan Santoro MD 1210 [facility] [address] [place] [address] PCP - General 01/20/21 Dalton Hurley MD [address] [place] [address] Consulting Physician Radiation Therapy 03/27/21 Geovanny Dominguez MD [address] [facility] [address] [place] [address] Surgeon Neurosurgery 05/21/21 Rudolph Dillard MD [address] [address] Consulting Physician Medical Oncology 09/22/21 Abdiel Vargas, COUNTY TREASURER 800 [facility] [address] [place] [address] Nurse Practitioner Internal Medicine 04/09/22 Rodney Maria MD [address] [address] Referring Physician 11/14/24 Brian Flores MD 800 [place] [address] Consulting Physician Cardiology 11/14/24 documented as of this encounter
--- OUTSIDE RECORDS SUMMARY | 2025-04-15 13:08 | XMS_ITS | Encounter Summary ---
Author Organization [facility] Address [address] [place] [address] Care Team Providers Care Oncology Patient Navigator Name Role Phone Wan Santoro MD Primary Care Provider [phone] Dalton Hurley MD Unavailable [phone] Geovanny Dominguez MD Unavailable [phone] Rudolph Dillard MD Unavailable [phone] Abdiel Vargas APRN Unavailable [phone] Rodney Maria MD Unavailable [phone] Brian Flores MD Unavailable [phone] Encounter Details Date Type Department Care Team (Late st Contact Info) Description 01/26/2021 Lab Requisition [facility] Lab 800 [place] [address] Rudolph Dillard MD [address] [address] Other nonspecific abnormal finding of [...] Encounter PAV S Operating Room [address] [place] [address] Abdelrahman Betancur MD [address] [place] [address] 04/19/2025 8:15 AM EDT - 04/19/2025 10:40 AM EDT Surgery PAV S Operating Room [address] [place] [address] Abdelrahman Betancur MD [address] [place] [address] ARTHROPLASTY, HIP, TOTAL, ANTERIOR APPROACH [04148 (CPT )] 05/03/2025 9:00 AM EDT Office Visit Medical Office Building [facility] [address], [address] [place] [address] Renetta Stoner PA [address] [place] [address] 06/04/2025 11:00 AM EST Office Visit Medical Office Building [facility] [address], [address] [place] [address] Abdelrahman Betancur MD [address] [place] [address] 06/25/2025 12:10 PM EST Appointment [facility] CT [address], 2nd [place] [address] 06/25/2025 1:00 PM EST Appointment [facility] S Radiology [address], 1st [place] [address] 06/25/2025 2:15 PM EST Clinical Support [facility]ck [facility] Res[facility] 800 [facility], [address]nd [place] [address] 06/25/2025 2:40 PM EST Office Visit [facility]ck [facility] Respiratory [address] [facility], 2nd [place] [address] Rudolph Dillard MD 800 [facility] 2nd [place] [address] 01/08/2026 2:00 PM EDT Appointment Medical Office Building Cardiac Diagnostic Testing Medical Office Building Echo Lab [address] [facility], [address] [place] [address] 01/08/2026 3:00 PM EDT Office Visit [facility] [place] [address] [facility], [address] [place] [address] Dian Yancey PA [address] [place] [address] Scheduled Procedures Name Priority Associated [...] EDT) Case Report Sug[facility] Pathology Consult Case: [id number] Authorizing Provider: Rudolph Dillard MD Collected: 01/26/2021 1053 Ordering Location: [facility] Lab Received: 01/26/2021 1053 Pathologist: Fay Eagle MD Specimen: Lung, OU [id number] 01/26/2021 3:49 PM EDT [facility] Final Diagnosis A. LUNG, left upper lobe, mass, biopsy ([id number] A1- A2; collection date 01/12/2021): - benign bronchial epithelium and mucosa; See NOTE. - Negative for malignancy - no lung parenchyma identified to evaluate 01/26/2021 3:49 PM EDT [facility] at 1549 EDT Comment Sampling artifact cannot be excluded. Correlation with concurrent outside cytology, [id number] is suggested. 01/26/2021 3:49 PM EDT [facility] Clinical Information Left upper lobe lung masses with adenopathy, nonsmoker 01/26/2021 3:49 PM EDT [facility] Gross Description Rafael RODRIGUEZ [id number] Received along with a corresponding pathology report from [facility] are 6 slide(s) labeled outside case: [id number] collected on 01/12/2021. 01/26/2021 3:49 PM EDT [facility] Tissue Lung structure / Unknown 01/26/2021 10:53 AM EDT 01/26/2021 10:53 AM EDT Rudolph Dillard MD LAB PATHOLOGY ORDERABLES Final Result [facility] 800 [place] [address] documented in this encounter Visit Diagnoses Diagnosis Other nonspecific abnormal finding of lung field Arthritis of right hip documented in this encounter Care Teams Oncology Patient Navigator Relationship Specialty Start Date End Date Wan Santoro MD 1210 [facility] [address] [place] [address] PCP - General 01/20/21 Dalton Hurley MD 800 [facility] [address] [place] [address] Consulting Physician Radiation Therapy 03/27/21 Geovanny Dominguez MD [address] [facility] [address] [place] [address] Surgeon Neurosurgery 05/21/21 Rudolph Dillard MD 800 [facility] 2nd [place] [address] Consulting Physician Medical Oncology 09/22/21 Abdiel Vargas APRN 800 [facility] [address] [place] [address] Nurse Practitioner Internal Medicine 04/09/22 Rodney Maria MD [address] [place] [id number] Referring Physician 11/14/24 Brian Flores MD 800 [place] [address] Consulting Physician Cardiology 11/14/24 documented as of this encounter
--- OUTSIDE RECORDS SUMMARY | 2025-04-15 13:08 | XMS_ITS | Encounter Summary ---
Author Organization [facility] Address [address] [place] [address] Care Team Providers Care Superintendent Track Name Role Phone Wan Santoro MD Primary Care Provider [phone] Dalton Hurley MD Unavailable [phone] Geovanny Dominguez MD Unavailable [phone] Rudolph Dillard MD Unavailable Abdiel Vargas APRN Unavailable [phone] Rodney Maria MD Unavailable [phone] Brian Flores MD Unavailable [phone] Reason for Visit * Reason Onset Date Comments HCN Paperwork/Documentation Request 04/04/2025 Encounter Details Date Type Department Care Team (Late st Contact Info) Description 04/04/2025 Telephone Medical Office Building Surgery Spine & Joint [address] [facility], [address] [place] [address] Abdelrahman Betancur MD [address] [place] [address] HCN Paperwork/Documentation Request Social History Tobacco Use Types Packs/Day Years [...] encounter Miscellaneous Notes * Telephone Encounter - Latisha Sun - 04/08/2025 6:15 AM EDT Spoke with pt. She was informed that today's surgery will need to be postponed due to Dr. Betancur being sick. I will call her back as soon as I have more information about rescheduling * Telephone Encounter - Doreen Masters - 04/04/2025 2:56 PM EDT Called Ms. Lynn. She's scheduled for surgery 04-08. Advised that she would get an order at discharge. She is trying to get her PT set up, and they won't schedule her without an order. Asked Dr Betancur to go ahead and put that in for her. * Telephone Encounter - Collette Early - 04/04/2025 2:09 PM EDT Paperwork/Documentation Request Patient Name: Priya Lynn Type: PT Order to [facility] in [place] Due Date: gautam Send To: Fax [facility] Therapy [phone] Best contact number: [phone] (mobile) Optimal time of day to reach caller: ANYTIME Additional comments/information from caller: None Note: Please do not reply to this message. Follow-up communication and further actions as a result of this message need to be communicated with the patient directly, if the patient is not active onMyChart. If the patient is active on MyChart, they will receive notification of the communication/outcome via MyChart. documented in this encounter Plan of Treatment Upcoming Encounters Date Type Department Care Team (Late st Contact Info) Description 04/19/2025 8:15 AM EDT Hospital Encounter [facility] Operating Room [address] [place] [address] Abdelrahman Betancur MD [address] [place] [address] 04/19/2025 8:15 AM EDT - 04/19/2025 10:40 AM EDT Surgery [facility] Operating Room [address] [place] [address] Abdelrahman Betancur MD [address] [place] [address] ARTHROPLASTY, HIP, TOTAL, ANTERIOR APPROACH [06813 (CPT )] 05/03/2025 9:00 AM EDT Office Visit Medical Office Building Surgery Spine & Joint [address], [address] [place] [address] Renetta Stoner PA [address] [place] [address] 06/04/2025 11:00 AM EST Office Visit Medical Office Building Surgery Spine & Joint [address], [address] [place] [address] Abdelrahman Betancur MD [address] [place] [address] 06/25/2025 12:10 PM EST Appointment [facility] [address], 2nd [place] [address] 06/25/2025 1:00 PM EST Appointment [facility] Radiology [address], 1st [place] [address] 06/25/2025 2:15 PM EST Clinical Support [facility] Res[facility] [address] [facility], 2nd [place] [address] 06/25/2025 2:40 PM EST Office Visit [facility] 800 [facility], [address]nd [place] [address] Rudolph Dillard MD [address] [address] 01/08/2026 2:00 PM EDT Appointment Medical Office Building Cardiac Diagnostic Testing Medical Office Building Echo Lab [address] [facility], [address] [place] [address] 01/08/2026 3:00 PM EDT Office Visit [facility] [place] [address] [facility], [address] [place] [address] Dian Yancey PA 800 [place] [address] Scheduled Procedures Name Priority Associated [...] documented as of this encounter Care Teams Superintendent Track Relationship Specialty Start Date End Date Wan Santoro MD [address] [place] [address] PCP - General 01/20/21 Dalton Hurley MD 800 [facility] [address] [place] [address] Consulting Physician Radiation Therapy 03/27/21 Geovanny Dominguez MD [address] [facility] [address] [place] [address] Surgeon Neurosurgery 05/21/21 Rudolph Dillard MD [address] [address] Consulting Physician Medical Oncology 09/22/21 Abdiel Vargas, ELECTRIC STOP INSTALLER 800 [facility] [address] [place] [address] Nurse Practitioner Internal Medicine 04/09/22 Rodney Maria MD [address] [address] Referring Physician 11/14/24 Brian Flores MD [address] [place] [address] Consulting Physician Cardiology 11/14/24 documented as of this encounter
--- OUTSIDE RECORDS SUMMARY | 2025-04-15 13:08 | XMS_ITS | Encounter Summary ---
Author Organization [facility] Address [address] [place] [address] Care Team Providers Care Coal Trammer Name Role Phone Wan Santoro MD Primary Care Provider [phone] Dalton Hurley MD Unavailable [phone] Geovanny Dominguez MD Unavailable [phone] Rudolph Dillard MD Unavailable [phone] Abdiel Vargas APRN Unavailable [phone] Rodney Maria MD Unavailable [phone] Brian Flores MD Unavailable [phone] Reason for Referral * Consultation (Routine) - Authorized Specialty Diagnoses / Procedures Referred By Contpj t Referred To Contact Physical Therapy Diagnoses Arthritis of right hip Renetta Stoner PA [address] [facility] [address] [place] [address] Phone: tel: fax: Referral ID Status Reason Start Date Expiration Date Visits Requested Visits Authorized [id number] Authorized Consult and Treat 04/05/2025 10/05/2026 1 1 Scheduling Instructions R CLAY, WBAT, no hip precautions Encounter Details Date Type Department Care Team ([facility] st Contact Info) Description 04/05/2025 Orders Only Medical Office Building Surgery Spine & Joint [address], [address] [place] [address] Renetta Stoner PA [address] [place] [address] Arthritis of right hip (Primary [...] Description 04/19/2025 8:15 AM EDT Hospital Encounter [facility] S Operating Room [address] [phone] Abdelrahman Betancur MD [address] [place] [address] 04/19/2025 8:15 AM EDT - 04/19/2025 10:40 AM EDT Surgery [facility] S Operating Room 310 [place] [address] Abdelrahman Betancur MD [address] [place] [address] ARTHROPLASTY, HIP, TOTAL, ANTERIOR APPROACH [33639 (CPT )] 05/03/2025 9:00 AM EDT Office Visit Medical Office Building Surgery Spine & Joint [address] [facility], [address] [place] [address] Renetta Stoner PA [address] [facility] 201 [place] [address] 06/04/2025 11:00 AM EST Office Visit Medical Office Building Surgery Spine & Joint [address] [facility], [address] [place] [address] Abdelrahman Betancur MD [address] [facility] 201 [place] [address] 06/25/2025 12:10 PM EST Appointment [facility] [address], 2nd [place] [address] 06/25/2025 1:00 PM EST Appointment [facility] Radiology [address], 1st [place] [address] 06/25/2025 2:15 PM EST Clinical Support [facility] Res[facility] 800 [facility], 2nd [place] [address] 06/25/2025 2:40 PM EST Office Visit [facility] Res[facility] 800 [facility], 2nd [place] [address] Rudolph Dillard MD [address] [address] 01/08/2026 2:00 PM EDT Appointment Medical Office Building Cardiac Diagnostic Testing Medical Office Building Echo Lab [address] [facility], [address] [place] [address] 01/08/2026 3:00 PM EDT Office Visit [facility] [place] [address] [facility], [address] [place] [address] Dian Yancey PA [address] [place] [address] Scheduled Procedures Name Priority Associated Diagnoses Date/Ti me ARTHROPLASTY, HIP, TOTAL, ANTERIOR APPROACH Arthritis of right hip 04/19/2025 8:15 AM EDT Scheduled Referrals Name Type Priority Associated Diagnoses Order Schedule Physical Therapy (outgoing) Outpatient Referral Routine Arthritis of right hip 1 Occurrences starting 04/05/2025 until 10/07/2026 documented as of this encounter Visit Diagnoses [...] documented as of this encounter Care Teams Coal Trammer Relationship Specialty Start Date End Date Wan Santoro MD [address] [place], [place] [address] [address] [place] [address] PCP - General 01/20/21 Dalton Hurley MD 800 [facility] [address] [place] [address] Consulting Physician Radiation Therapy 03/27/21 Geovanny Dominguez MD [address] [place] [address] Surgeon Neurosurgery 05/21/21 Rudolph Dillard MD [address] [place] [address] Consulting Physician Medical Oncology 09/22/21 Abdiel Vargas, MACHINE ETCHER [address] [place] [address] Nurse Practitioner Internal Medicine 04/09/22 Rodney Maria MD [address] [address] Referring Physician 11/14/24 Brian Flores MD [address] [place] [address] Consulting Physician Cardiology 11/14/24 documented as of this encounter
--- OUTSIDE RECORDS SUMMARY | 2025-04-15 13:09 | XMS_ITS | Encounter Summary ---
Author Organization [facility] Address [address] [place] [address] Care Team Providers Care Carbide Tool Maker Name Role Phone Wan Santoro MD Primary Care Provider [phone] Dalton Hurley MD Unavailable [phone] Geovanny Dominguez MD Unavailable [phone] Rudolph Dillard MD Unavailable [phone] Abdiel Vargas APRN Unavailable [phone] Rodney Maria MD Unavailable [phone] Brian Flores MD Unavailable [phone] Encounter Details Date Type Department Care Team (Latest Contact Info) Description 04/02/2025 Travel Social History Tobacco Use Types Packs/Day [...] [facility] S Operating Room [address] [place] [address] Abdelrahman Betancur MD [address] [place] [address] 04/19/2025 8:15 AM EDT - 04/19/2025 10:40 AM EDT Surgery [facility] Operating Room [address] [place] [address] Abdelrahman Betancur MD [address] [place] [address] ARTHROPLASTY, HIP, TOTAL, ANTERIOR APPROACH [06162 (CPT )] 05/03/2025 9:00 AM EDT Office Visit Medical Office Building Surgery Spine & Joint [address], [address] [place] [address] Renetta Stoner PA [address] [place] [address] 06/04/2025 11:00 AM EST Office Visit Medical Office Building Surgery Spine & Joint [address], [address] [place] [address] Abdelrahman Betancur MD [address] [place] [address] 06/25/2025 12:10 PM EST Appointment [facility] [address], 2nd [place] [address] 06/25/2025 1:00 PM EST Appointment [facility] S Radiology [address], 1st [place] [address] 06/25/2025 2:15 PM EST Clinical Support [facility] Res[facility] 800 [facility], 2nd [place] [address] 06/25/2025 2:40 PM EST Office Visit [facility] 800 [facility], 2nd [place] [address] Rudolph Dillard MD 800 [facility] 2nd [place] [address] 01/08/2026 2:00 PM EDT Appointment Medical Office Building Cardiac Diagnostic Testing Medical Office Building Echo Lab [address] [facility], [address] [place] [address] 01/08/2026 3:00 PM EDT Office Visit [facility] [place] [address] [facility], [address] [place] [address] Dian Yancey PA 800 [place] [address] Scheduled Procedures Name Priority Associated [...] documented as of this encounter Care Teams Carbide Tool Maker Relationship Specialty Start Date End Date Wan Santoro MD [address] [place] [address] PCP - General 01/20/21 Dalton Hurley MD 800 [facility] [address] [place] [address] Consulting Physician Radiation Therapy 03/27/21 Geovanny Dominguez MD [address] [facility] [address] [place] [address] Surgeon Neurosurgery 05/21/21 Rudolph Dillard MD [address] [address] Consulting Physician Medical Oncology 09/22/21 Abdiel Vargas, INSECTICIDE EXPERT 800 [facility] [address] [place] [address] Nurse Practitioner Internal Medicine 04/09/22 Rodney Maria MD [address] [address] Referring Physician 11/14/24 Brian Flores MD 800 [place] [address] Consulting Physician Cardiology 11/14/24 documented as of this encounter
--- OUTSIDE RECORDS SUMMARY | 2025-04-15 13:09 | XMS_ITS | Encounter Summary ---
Author Organization [facility] Address [address] [place] [address] Care Team Providers Care Auto Radio Mechanic Name Role Phone Wan Santoro MD Primary Care Provider [phone] Dalton Hurley MD Unavailable [phone] Geovanny Dominguez MD Unavailable [phone] Rudolph Dillard MD Unavailable [phone] Abdiel Vargas APRN Unavailable [phone] Rodney Maria MD Unavailable [phone] Brian Flores MD Unavailable [phone] Encounter Details Date Type Department Care Team (Latest Contact Info) Description 03/06/2025 Travel Social History Tobacco Use Types Packs/Day [...] as of this encounter Functional Status * AUDIT-C Score Answer Date of Assessment Author 0 03/06/2025 11:21 AM Cindy Yu * Question Answer Date of Assessment [...] usual. Not at all 03/06/2025 11:18 AM EDT Ca Richard Thoughts that you would be better off or hurting yourself in some way Not at all 03/06/2025 11:18 AM EDT Chon Richard Patient Health Questionnaire -9 Score 0 03/06/2025 11:18 AM EDT Ca Richard documented as of this encounter Plan of Treatment Upcoming Encounters Date Type Department Care Team (Late st Contact Info) Description 04/19/2025 8:15 AM EDT Hospital Encounter [facility] Operating Room [address] [place] [address] Abdelrahman Betancur MD [address] [place] [address] 04/19/2025 8:15 AM EDT - 04/19/2025 10:40 AM EDT Surgery [facility] S Operating Room [address] [place] [address] Abdelrahman Betancur MD [address] [place] [address] ARTHROPLASTY, HIP, TOTAL, ANTERIOR APPROACH [96787 (CPT )] 05/03/2025 9:00 AM EDT Office Visit Medical Office Building Surgery Spine & Joint [address], [address] [place] [address] Renetta Stoner PA [address] [place] [address] 06/04/2025 11:00 AM EST Office Visit Medical Office Building Surgery Spine & Joint [address], [address] [place] [address] Abdelrahman Betancur MD [address] [place] [address] 06/25/2025 12:10 PM EST Appointment [facility] [address], 2nd [place] [address] 06/25/2025 1:00 PM EST Appointment [facility] Radiology [address], 1st [place] [address] 06/25/2025 2:15 PM EST Clinical Support [facility] Neck [facility] Respiratory 800 [facility], 2nd [place] [address] 06/25/2025 2:40 PM EST Office Visit [facility]ck [facility] Res[facility] 800 [facility], [address]nd [place] [address] Rudolph Dillard MD [address] [address] 01/08/2026 2:00 PM EDT Appointment Medical Office Building Cardiac Diagnostic Testing Medical Office Building Echo Lab [address] [facility], [address] [place] [address] 01/08/2026 3:00 PM EDT Office Visit [facility] [place] [address] [facility], [address] [place] [address] Dian Yancey PA 800 [place] [address] Scheduled Procedures Name Priority Associated [...] documented as of this encounter Care Teams Auto Radio Mechanic Relationship Specialty Start Date End Date Wan Santoro MD 1210 [facility] [address] [place] [address] PCP - General 01/20/21 Dalton Hurley MD 800 [facility] [address] [place] [address] Consulting Physician Radiation Therapy 03/27/21 Geovanny Dominguez MD [address] [facility] [address] [place] [address] Surgeon Neurosurgery 05/21/21 Rudolph Dillard MD [address] [address] Consulting Physician Medical Oncology 09/22/21 Abdiel Vargas, SUPERVISOR DRIED YEAST 800 [facility] [address] [place] [address] Nurse Practitioner Internal Medicine 04/09/22 Rodney Maria MD 1210 [facility] [address] [place] [address] Referring Physician 11/14/24 Brian Flores MD 800 [place] [address] Consulting Physician Cardiology 11/14/24 documented as of this encounter
--- OUTSIDE RECORDS SUMMARY | 2025-04-15 13:09 | XMS_ITS ---
Author Organization [facility] Address [address] [place] [address] Care Team Providers Care Manager Line Name Role Phone aWn Santoro MD Primary Care Provider [phone] Dalton Hurley MD Unavailable [phone] Geovanny Dominguez MD Unavailable [phone] Rudolph Dillard MD Unavailable [phone] Abdiel Vargas APRN Unavailable [phone] Rodney Maria MD Unavailable [phone] Brian Flores MD Unavailable [phone] Active Problems Problem Noted Date Diagnosed Date Arthritis of left hip 01/04/2025 Nonrheumatic aortic valve stenosis 11/22/2024 BMI 29.0-29.9,adult 11/19/2024 Severe aortic stenosis 10/25/2024 Bone lesion 09/04/2024 Arthritis of right hip 08/23/2024 Arthritis 05/29/2024 Adenocarcinoma of left lung 06/23/2021 Cancer Staging:Pathologic stage from 01/12/2021:Stage KATHIA(cT3, pN2, pM1b) - Unsigned Malignant neoplasm metastatic to brain Overview (10/20/2022): [...] Problem Noted Date Diagnosed Date Resolved Date Flu vaccine need 05/01/2021 04/07/2025 Brain metabolic disorder 02/11/202109/2020 MRI of brain abnormal 02/11/20212020
--- OUTSIDE RECORDS SUMMARY | 2025-04-15 13:09 | XMS_ITS | Encounter Summary ---
Author Organization [facility] Address [address] [place] [address] Care Team Providers Care Design Teacher Name Role Phone Wan Santoro MD Primary Care Provider [phone] Dalton Hurley MD Unavailable [phone] Geovanny Dominguez MD Unavailable [phone] Rudolph Dillard MD Unavailable [phone] Abdiel Vargas APRN Unavailable [phone] Rodney Maria MD Unavailable [phone] Brian Flores MD Unavailable [phone] Encounter Details Date Type Department Care Team (Latest Contact Info) Description 03/26/2025 Travel Social History Tobacco Use Types Packs/Day [...] [facility] S Operating Room [address] [place] [address] Abdelrahman Betancur MD [address] [place] [address] 04/19/2025 8:15 AM EDT - 04/19/2025 10:40 AM EDT Surgery [facility] S Operating Room [address] [place] [address] Abdelrahman Betancur MD [address] [place] [address] ARTHROPLASTY, HIP, TOTAL, ANTERIOR APPROACH [16856 (CPT )] 05/03/2025 9:00 AM EDT Office Visit Medical Office Building Surgery Sp[facility] & Joint [address] [place] [address] Renetta Stoner PA [address] [place] [address] 06/04/2025 11:00 AM EST Office Visit Medical Office Building Surgery Sp[facility] & Joint [address], [address] [place] [address] Abdelrahman Betancur MD [address] [place] [address] 06/25/2025 12:10 PM EST Appointment [facility] [address], 2nd [place] [address] 06/25/2025 1:00 PM EST Appointment [facility] S Radiology [address], 1st [place] [address] 06/25/2025 2:15 PM EST Clinical Support [facility] Respiratory 800 [facility], 2nd [place] [address] 06/25/2025 2:40 PM EST Office Visit [facility] Respiratory 800 [facility], 2nd [place] [address] Rudolph Dillard MD 800 [facility] 2nd [place] [address] 01/08/2026 2:00 PM EDT Appointment Medical Office Building Cardiac Diagnostic Testing Medical Office Building Echo Lab [address] [facility], [address] [place] [address] 01/08/2026 3:00 PM EDT Office Visit [facility] [place] [address] [facility], [address] [place] [address] Dian Yancey PA 800 [place] [address] Scheduled Procedures Name Priority Associated [...] documented as of this encounter Care Teams Design Teacher Relationship Specialty Start Date End Date Wan Santoro MD [address] [place] [address] PCP - General 01/20/21 Dalton Hurley MD 800 [facility] [address] [place] [address] Consulting Physician Radiation Therapy 03/27/21 Geovanny Dominguez MD [address] [facility] [address] [place] [address] Surgeon Neurosurgery 05/21/21 Rudolph Dillard MD [address] [address] Consulting Physician Medical Oncology 09/22/21 Abdiel Vargas, PET WALKER 800 [facility] 134 [place] [address] Nurse Practitioner Internal Medicine 04/09/22 Rodney Maria MD [address] [address] Referring Physician 11/14/24 Brian Folres MD 800 [place] [address] Consulting Physician Cardiology 11/14/24 documented as of this encounter
--- OUTSIDE RECORDS SUMMARY | 2025-04-15 13:09 | XMS_ITS | Clinical Summary ---
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 30 tablet 2 5 Active Additional Information Patient not taking.Reported on 04/02/2025 meloxicam (Mobic) 15 MG tablet Take 1 tablet by mouth daily. 04/05/20 25 Discontin ued(Enter ed in Error) traMADol (Ultram) 50 MG tablet Take 1 tablet by mouth every 4 hours as needed for severe pain. 60 tablet 5 04/05/20 25 Discontin ued(Enter ed in Error) gabapentin (Neurontin) 100 MG capsule Take 1 capsule by mouth 3 times a day. If this medication makes you drowsy you may take it only at bedtime 30 capsule 5 04/05/20 25 Discontin ued(Enter ed in Error) oxyCODONE (Roxicodone) 5 MG immediate release tablet Take 1 tablet by mouth every 6 hours as needed for severe pain. 30 tablet 5 04/05/20 25 Discontin ued(Enter ed in Error) naloxone (Narcan) 4 mg/0.1 mL nasal spray 1. Give 1 spray in nostril for no/slow breathing or cannot wake after opioid use 2. Call 911 3. Repeat in other nostril if symptoms continue 1 each 5 04/05/20 25 Discontin ued(Enter ed in Error) acetaminophen (Tylenol Extra Strength) 500 MG tablet Take 2 tablets by mouth every 8 hours. 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) 04/05/2025 Orders Only Medical Office Building [facility] [address] [facility], [address] [place] [address] Renetta Stoner PA Arthritis of right hip (Primary Dx) 04/04/2025 Telephone Medical Office Building [facility] [address] [facility], [address] [place] [address] Abdelrahman Betancur MD HCN Paperwork/Documentati on Request 04/02/2025 1:40 PM EDT Office Visit [facility] [address] [facility], [address] [place] [id number] Rudolph Dillard MD 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) (Primary Dx); Adenocarcinoma of left lung (CMS/HCC); Encounter for antineoplastic chemotherapy 04/02/2025 1:15 PM EDT Clinical Support [facility] [address] [facility], 2nd [place] [address] 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); Adenocarcinoma of left lung (CMS/HCC) 04/02/2025 9:14 AM EDT - 04/02/2025 11:59 PM EDT Hospital Encounter [facility] [address] [place] [address] 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); Adenocarcinoma of left lung (CMS/HCC) Discharge Disposition: Home or Self Care 04/02/2025 8:52 AM EDT - 04/02/2025 9:13 AM EDT Hospital Encounter [facility] [address] [place] [id number] 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); Adenocarcinoma of left lung (CMS/HCC) Discharge Disposition: Home or Self Care 04/02/2025 Travel 03/26/2025 11:10 AM EDT Office Visit Medical [facility] [address] [facility], [address] [place] [address] Abdelrahman Betancur MD S/P total left hip arthroplasty (Primary Dx); Arthritis of right hip 03/26/2025 10:30 AM EDT - 03/26/2025 11:59 PM EDT Hospital Encounter Medical Office Building Radiology [address] [place] [address] S/P total left hip arthroplasty Discharge Disposition: Home or Self Care 03/26/2025 Travel 03/06/2025 11:30 AM EDT Office Visit [facility] [address] [facility], [address] [place] [address] Dian Yancey PA Nonrheumatic aortic valve stenosis (Primary Dx) 03/06/2025 9:32 AM EDT - 03/06/2025 11:59 PM EDT Hospital Encounter Medical Office Building Cardiac Diagnostic Testing Medical Office Building Echo Lab [address] [facility], [address] [place] [address] S/P TAVR (transcatheter aortic valve replacement) Discharge Disposition: Home or Self Care 03/06/2025 Travel 02/26/2025 11:20 AM EDT Office Visit Medical [facility] [address] [facility], [address] [place] [address] Renetta Stoner PA S/P total left hip arthroplasty (Primary Dx) 02/26/2025 Travel 02/11/2025 11:30 AM EDT - 02/11/2025 2:05 PM EDT Surgery [facility] Operating Room [address] [place] [address] Abdelrahman Betancur MD ARTHROPLASTY, HIP, TOTAL, ANTERIOR APPROACH [56791 (CPT )] 02/11/2025 11:28 AM EDT Anesthesia Event [facility] Operating Room [address] [place] [address] GómezFelipe MD Patel, Tarang R, CRNA 02/11/2025 7:40 AM EDT - 02/12/2025 2:57 PM EDT Hospital Encounter [facility] Inpatient [address] 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 Patient does not drink 08/20/202 5 Q3: How often do you have [...] Pulse 87 04/02/2025 12:21 PM EDT Temperature 36.3 C (97.4 F) 02/12/2025 11:16 AM EDT Respiratory Rate 16 04/02/2025 12:21 PM EDT Oxygen Saturation 98% 04/02/2025 12:21 PM EDT Inhaled Oxygen Concentration - - Weight 81.2 kg (179 lb 0.2 oz) 04/02/2025 12:21 PM EDT Height 165 cm (5' 4.96 ) 04/02/2025 12:21 PM EDT Body Mass Index 29.83 04/02/2025 12:21 PM EDT Plan of Treatment Upcoming Encounters Date Type Department Care Team (Late st Contact Info) Description 04/19/2025 8:15 AM EDT Hospital Encounter [facility] Operating Room [address] [place] [address] Abdelrahman Betancur MD [address] [place] [address] 04/19/2025 8:15 AM EDT - 04/19/2025 10:40 AM EDT Surgery [facility] S Operating Room [address] [place] [address] Abdelrahman Betancur MD [address] [place] [address] ARTHROPLASTY, HIP, TOTAL, ANTERIOR APPROACH [32357 (CPT )] 05/03/2025 9:00 AM EDT Office Visit Medical Office [facility] [address], [address] [place] [address] Renetta Stoner PA [address] [facility] [address] [place] [address] 06/04/2025 11:00 AM EST Office Visit Medical Office Building [facility] [address] [facility], [address] [place] [address] Abdelrahman Betancur MD [address] [facility] [address] [place] [address] 06/25/2025 12:10 PM EST Appointment [facility] [address], 2nd [place] [address] 06/25/2025 1:00 PM EST Appointment [facility] Radiology [address], 1st [place] [address] 06/25/2025 2:15 PM EST Clinical Support [facility] [address] [facility] [place] [address] 06/25/2025 2:40 PM EST Office Visit [facility] [address] [facility], [address] [place] [address] Rudolph Dillard MD [address] [address] 01/08/2026 2:00 PM EDT Appointment Medical Office Building Cardiac Diagnostic Testing Medical Office Building Echo Lab [address] [facility], [address] [place] [address] 01/08/2026 3:00 PM EDT Office Visit [facility] [address] [facility], [address] [place] [address] Dian Yancey PA [address] [place] [address] Scheduled Procedures Name Priority Associated Diagnoses Date/Ti me ARTHROPLASTY, HIP, TOTAL, ANTERIOR APPROACH Arthritis of right hip 04/19/2025 8:15 AM EDT Health Maintenance Due Date Last Done Comments [facility]-Bone Density Scan 1955 [facility]-Hepatitis C Screening 1955 [facility]-Medicare Annual Wellness (AWV) 1955 [facility]-/Child/Adol SDOH Screenings 1955 [id number] Vaccine (#1) 09/18/1959 [facility]- SDOH Screenings 1972 [facility]-Adult SDOH Screenings 1972 [facility]-Pneumococcal Vaccine: 50+ Years (1 of 2 - PCV) 1973 [facility]-Zoster Vaccines (1 of 2) 1973 CT Colonography 09/18/1999 Colonoscopy 09/18/1999 FIT-DNA 09/18/1999 FIT 09/18/1999 FOBT 09/18/1999 Sigmoidoscopy 09/18/1999 [facility]-Colorectal Cancer Screening 09/18/1999 [facility]-RSV Vaccine: 60+ Years or (1 - Risk 60-74 years 1-dose series) 2014 [facility]-Influenza Vaccine (#1) 2025 [facility]-Depression Screening 03/06/2026 03/06/2025, 02/16 [facility]-Breast Cancer Screening 10/25/202610/16, 10/25/2024, 10/10/2023, Additional history exists [facility]-DTaP,Tdap,and Td Vaccines (2 - Td or Tdap) 12/03/2031 12/02/2021 [facility]-Obesity Intervention Completed 025, 03/06/2025, 02/26/2025, Additional history exists HPV Vaccines Aged Out [...] on patient's age to complete this topic Medical Devices Implanted Type Area Maintenance Painter Device Identifier Shelf Expiration Date Model / Serial / Lot Valve Kit Kerry 3 Ultra Tavr 23mm - [id number] - [id number] Implanted:Qty: 1 on 12/27/2024 by Brian Flores MD at [facility]-[id number] 07/30/2027 [id number] / [id number] / [id number] Chg Shell R3 3 Hole Acet 50mm - [id number] Implanted:Qty: 1 on 02/11/2025 by Abdelrahman Betancur MD at [facility] Left: Hip [employer]-[id number] 06/16/2034 [id number] / / [id number] Liner Or3o Dual Mbility 38 50 - [id number] Implanted:Qty: 1 on 02/11/2025 by Abdelrahman Betancur MD at [facility] Left: Hip [employer]-[id number] 07/29/2034 [id number] / / [id number] Chg Screw Ref Spher Head 35mm - [id number] Implanted:Qty: 1 on 02/11/2025 by Abdelrahman Betancur MD at [facility] Left: Hip [employer]-[id number] 09/22/2034 [id number] / / [id number] Chg Screw Ref Spher Head 25mm - [id number] Implanted:Qty: 1 on 02/11/2025 by Abdelrahman Betancur MD at [facility] Left: Hip [employer]-[id number] 05/05/2034 [id number] / / [id number] Liner Or3o Dual Mbility Xlpe 28/38 - [id number] Implanted:Qty: 1 on 02/11/2025 by Abdelrahman Betancur MD at [facility] Left: Hip [employer]-[id number] 09/06/2034 [id number] / / [id number] Hip Plus Sl Integr Monika Schaft W.Ti.Mejía 6 6 - [id number] Implanted:Qty: 1 on 02/11/2025 by Abdelrahman Betancur MD at [facility] Left: Hip [employer]-[id number] 05/13/2028 [id number] / / [id number] Chg Head Oxinium Fem 06/30 28m - [id number] Implanted:Qty: 1 on 02/11/2025 by Abdelrahman Betancur MD at [facility] Left: Hip [employer]-[id number] 10/13/2034 [id number] / [id number] Procedures Procedure Name Priority Date/Time Associated Diagnosis [...] brain (CMS/HCC) Adenocarcinoma of left lung (CMS/HCC) CT CHEST W IV CONTRAST Routine 04/02/2025 9:25 AM EDT 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) Adenocarcinoma of left lung (CMS/HCC) CBC W/O DIFFERENTIAL Routine 03/26/2025 12:07 PM EDT Arthritis of left hip Hip pain, left BASIC METABOLIC PANEL, PLASMA Routine 03/26/2025 12:07 PM EDT Arthritis of left hip Hip pain, left ALBUMIN, PLASMA Routine 03/26/2025 12:07 PM EDT Arthritis of left hip Hip pain, left HEMOGLOBIN A1C Routine 03/26/2025 12:07 PM EDT Arthritis of left hip Hip pain, left XR PELVIS 1 OR 2 VIEWS Routine 03/26/2025 10:40 AM EDT S/P total left hip arthroplasty ECG ADULT Routine 03/06/2025 11:15 AM EDT Nonrheumatic aortic valve stenosis ECHO, ADULT TRANSTHORACIC COMPLETE Routine 03/06/2025 10:48 AM EDT S/P TAVR (transcatheter aortic valve replacement) CBC W/O DIFFERENTIAL Routine 02/12/2025 3:48 AM EDT XR HIP LEFT 2 OR 3 VIEWS STAT 02/11/2025 1:43 PM EDT FL LESS THAN 1 HOUR (NON-REPORTABLE) Routine 02/11/2025 12:46 PM EDT SURGICAL PATHOLOGY EXAM Routine 02/11/2025 12:37 PM EDT Arthritis of left hip PB ANESTHESIA PLACEHOLDER Routine 02/11/2025 11:38 AM EDT MI AN ELECTIVE ENDOTRACHEAL AIRWAY Routine 02/11/2025 11:38 AM EDT MI TOTAL HIP ARTHROPLASTY 02/11/2025 11:13 AM EDT Arthritis of left hip from Last 3 Months Results * (ABNORMAL) CBC and Differential (04/02/2025 12:30 PM EDT) WBC Count 6.57 3.70 - 10.30 10*3/uL LAB HEMATOLOGY METHOD 04/02/2025 1:03 PM EDT [facility] RBC Count 3.69(L) 3.90 - 5.20 10*6/uL LAB HEMATOLOGY METHOD 04/02/2025 1:03 PM EDT [facility] HGB 11.0(L) 11.2 - 15.7 g/dL LAB HEMATOLOGY METHOD 04/02/2025 1:03 PM EDT [facility] HCT 34.3 34.0 - 45.0 % LAB HEMATOLOGY METHOD 04/02/2025 1:03 PM EDT [facility] Platelet Count 245 155 - 369 10*3/uL LAB HEMATOLOGY METHOD 04/02/2025 1:03 PM EDT [facility] MCV 93 79 - 98 fL LAB HEMATOLOGY METHOD 04/02/2025 1:03 PM EDT [facility] MCH 29.8 26.0 - 32.0 pg LAB HEMATOLOGY METHOD 04/02/2025 1:03 PM EDT [facility] MCHC 32.1 30.7 - 35.5 g/dL LAB HEMATOLOGY METHOD 04/02/2025 1:03 PM EDT [facility] RDW 13.8 11.5 - 14.5 % LAB HEMATOLOGY METHOD 04/02/2025 1:03 PM EDT [facility] MPV 9.8 8.8 - 12.5 fL LAB HEMATOLOGY METHOD 04/02/2025 1:03 PM EDT [facility] nRBC 0.0 <=0.0 per 100 WBCs LAB HEMATOLOGY METHOD 04/02/2025 1:03 PM EDT [facility] Differential Type Automated LAB HEMATOLOGY METHOD 04/02/2025 1:03 PM EDT [facility] Neutrophils % 72 % LAB HEMATOLOGY METHOD 04/02/2025 1:03 PM EDT [facility] Lymphocytes % 19 % LAB HEMATOLOGY METHOD 04/02/2025 1:03 PM EDT [facility] Monocytes % 6 % LAB HEMATOLOGY METHOD 04/02/2025 1:03 PM EDT [facility] Eosinophils % 2 % LAB HEMATOLOGY METHOD 04/02/2025 1:03 PM EDT [facility] Basophils % 1 % LAB HEMATOLOGY METHOD 04/02/2025 1:03 PM EDT [facility] Immature Granulocytes % 0 % LAB HEMATOLOGY METHOD 04/02/2025 1:03 PM EDT [facility] Neutrophils Absolute 4.78 1.60 - 6.10 10*3/uL LAB HEMATOLOGY METHOD 04/02/2025 1:03 PM EDT [facility] Lymphocytes Absolute 1.22 1.20 - 3.90 10*3/uL LAB HEMATOLOGY METHOD 04/02/2025 1:03 PM EDT [facility] Monocytes Absolute 0.40 0.30 - 0.90 10*3/uL LAB HEMATOLOGY METHOD 04/02/2025 1:03 PM EDT [facility] Eosinophils Absolute 0.12 0.00 - 0.50 10*3/uL LAB HEMATOLOGY METHOD 04/02/2025 1:03 PM EDT [facility] Basophils Absolute 0.03 0.00 - 0.10 10*3/uL LAB HEMATOLOGY METHOD 04/02/2025 1:03 PM EDT [facility] Immature Granulocytes Absolute 0.02 0.00 - 0.06 10*3/uL LAB HEMATOLOGY METHOD 04/02/2025 1:03 PM EDT [facility] Blood Venous blood specimen / Unknown Venipuncture / Unknown 04/02/2025 12:30 PM EDT 04/02/2025 12:52 PM EDT Narrative [facility] - 04/02/2025 1:03 PM EDT Therapeutic decision making should be based on absolute values, rather than percentages. us Rudolph Dillard MD LAB BLOOD ORDERABLES Final Res ult [facility] [address] [place] [address] * Comprehensive Metabolic Panel, Plasma (04/02/2025 12:30 PM EDT) Glucose, Plasma 92 74 - 99 mg/dL 04/02/2025 1:29 PM EDT [facility] BUN, Plasma 19 8 - 23 mg/dL 04/02/2025 1:29 PM EDT [facility] Creatinine, Plasma 0.78 0.60 - 1.10 mg/dL 04/02/2025 1:29 PM EDT [facility] BUN/Creatinine Ratio 24 04/02/2025 1:29 PM EDT [facility] Sodium, Plasma 141 136 - 145 mmol/L 04/02/2025 1:29 PM EDT [facility] Potassium, Plasma 4.3 3.6 - 4.9 mmol/L 04/02/2025 1:29 PM EDT [facility] Chloride, Plasma 106 97 - 107 mmol/L 04/02/2025 1:29 PM EDT [facility] CO2, Plasma 24 22 - 29 mmol/L 04/02/2025 1:29 PM EDT [facility] Anion Gap 11 6 - 16 mmol/L 04/02/2025 1:29 PM EDT [facility] Total Calcium, Plasma 9.8 8.9 - 10.2 mg/dL 04/02/2025 1:29 PM EDT [facility] Total Protein 7.2 6.3 - 7.9 g/dL 04/02/2025 1:29 PM EDT [facility] Albumin, Plasma 4.4 3.5 - 5.2 g/dL 04/02/2025 1:29 PM EDT [facility] AST, Plasma 24 10 - 35 U/L 04/02/2025 1:29 PM EDT [facility] ALT, Plasma 13 10 - 35 U/L 04/02/2025 1:29 PM EDT [facility] Alkaline Phosphatase, Plasma 107 46 - 142 U/L 04/02/2025 1:29 PM EDT [facility] Total Bilirubin, Plasma 0.5 0.2 - 1.1 mg/dL 04/02/2025 1:29 PM EDT [facility] eGFRcr 81.8 mL/min/1.7 3m*2 04/02/2025 1:29 PM EDT [facility] Comment:Reported eGFRcr in m L/min/1.73m2 is based the CKD-EPI 2020 equation that does not use a race coefficient. Blood Venous blood specimen / Unknown Venipuncture / Unknown 04/02/2025 12:30 PM EDT 04/02/2025 12:50 PM EDT us Rudolph Dillard MD LAB BLOOD ORDERABLES Final Res ult [facility] [address] [place] [id number] * MR Head w and wo IV [...] error, please notify the sender immediately at [phone] and permanently delete the original report and destroy any copies or printouts. Narrative 04/03/2025 3:31 PM EDT [facility] - Phone Outpatient NAME: Priya Lynn DATE OF EXAM: 04/02/2025 Patient No: [id number] Physician: Arline Date of : 1955 Past Medical/Surgical History [...] Mahmood MD - 04/03/2025 [facility] Outpatient NAME: Priya Lynn DATE OF EXAM: 04/02/2025 Patient No: [id number] Physician: Arline Date of : 1955 Past Medical/Surgical History [...] in error, pleasenotify the sender immediately at [phone] and permanently delete theoriginal report and destroy any copies or printouts. us Rudolph Dillard MD IM MRI PROCEDURES Final Resul t * CT Chest w IV Contrast (04/02/2025 [...] signing this report, I, the attending physician, [email or web address] I have personally reviewed the images/data for the aboveexamination(s) and agree with the final edited report. Drafted by Rodney Saha MD on 04/02/2025 10:01 AM Final report signed by Tapan Schroeder MD on 04/02/2025 10:30 AM Rudolph Dillard MD IMG CT PROCEDURES Final Result * (ABNORMAL) CBC W/O Differential (03/26/2025 12:07 PM EDT) Only the most recent of2 resultswithin the time period is included. WBC Count 7.57 3.70 - 10.30 10*3/uL LAB HEMATOLOGY METHOD 03/26/2025 2:25 PM EDT [facility] RBC Count 3.68(L) 3.90 - 5.20 10*6/uL LAB HEMATOLOGY METHOD 03/26/2025 2:25 PM EDT [facility] HGB 11.0(L) 11.2 - 15.7 g/dL LAB HEMATOLOGY METHOD 03/26/2025 2:25 PM EDT [facility] HCT 34.1 34.0 - 45.0 % LAB HEMATOLOGY METHOD 03/26/2025 2:25 PM EDT [facility] Platelet Count 236 155 - 369 10*3/uL LAB HEMATOLOGY METHOD 03/26/2025 2:25 PM EDT [facility] MCV 93 79 - 98 fL LAB HEMATOLOGY METHOD 03/26/2025 2:25 PM EDT [facility] MCH 29.9 26.0 - 32.0 pg LAB HEMATOLOGY METHOD 03/26/2025 2:25 PM EDT [facility] MCHC 32.3 30.7 - 35.5 g/dL LAB HEMATOLOGY METHOD 03/26/2025 2:25 PM EDT [facility] RDW 13.8 11.5 - 14.5 % LAB HEMATOLOGY METHOD 03/26/2025 2:25 PM EDT [facility] MPV 10.0 8.8 - 12.5 fL LAB HEMATOLOGY METHOD 03/26/2025 2:25 PM EDT [facility] nRBC 0.0 <=0.0 per 100 WBCs LAB HEMATOLOGY METHOD 03/26/2025 2:25 PM EDT [facility] Blood Venous blood specimen / Unknown Venipuncture / Unknown 03/26/2025 12:07 PM EDT 03/26/2025 12:07 PM EDT us Abdelrahman Betancur MD LAB BLOOD ORDERABLES Final R esult [facility] [address] [place] [address] * Hemoglobin A1c (03/26/2025 12:07 PM EDT) Hemoglobin A1c 5.0 <5.7 % 03/26/2025 4:41 PM EDT [facility] Blood Venous blood specimen / Unknown Venipuncture / Unknown 03/26/2025 12:07 PM EDT 03/26/2025 12:07 PM EDT Narrative [facility] - 03/26/2025 4:41 PM EDT HA1C Interpretive Data: Diagnosis of Diabetes: Diabetic > or = 6.5% Pre-diabetic 5.7 to 6.4% Non-diabetic < or = 5.6% Glycemic Targets for Type I and Type II Diabetics: Non- Adults <7.0% Adults <6.0% Children and Adolescents <7.5% Source: [place] [employer]. Standards of medical care in diabetes,2017. Diabetes Care.2017:40 (suppl 1):S1-S135. us Abdelrahman Betancur MD LAB BLOOD ORDERABLES Final R esult Performing Organization Address [facility] Co de Phone Number [facility] [address] [place] [address] * Albumin, Plasma (03/26/2025 12:07 PM EDT) Albumin, Plasma 4.3 3.5 - 5.2 g/dL 03/26/2025 2:50 PM EDT [facility] Blood Venous blood specimen / Unknown Venipuncture / Unknown 03/26/2025 12:07 PM EDT 03/26/2025 12:07 PM EDT us Abdelrahman Betancur MD LAB BLOOD ORDERABLES Final R esult Performing Organization Address [facility] de Phone Number [facility] [address] [place] [address] * Basic metabolic panel (03/26/2025 12:07 PM EDT) Glucose, Plasma 92 74 - 99 mg/dL 03/26/2025 2:50 PM EDT [facility] BUN, Plasma 19 8 - 23 mg/dL 03/26/2025 2:50 PM EDT [facility] Creatinine, Plasma 0.78 0.60 - 1.10 mg/dL 03/26/2025 2:50 PM EDT [facility] BUN/Creatinine Ratio 24 03/26/2025 2:50 PM EDT [facility] Sodium, Plasma 142 136 - 145 mmol/L 03/26/2025 2:50 PM EDT [facility] Potassium, Plasma 4.5 3.6 - 4.9 mmol/L 03/26/2025 2:50 PM EDT [facility] Chloride, Plasma 105 97 - 107 mmol/L 03/26/2025 2:50 PM EDT [facility] CO2, Plasma 24 22 - 29 mmol/L 03/26/2025 2:50 PM EDT [facility] Anion Gap 13 6 - 16 mmol/L 03/26/2025 2:50 PM EDT [facility] Total Calcium, Plasma 9.7 8.9 - 10.2 mg/dL 03/26/2025 2:50 PM EDT [facility] eGFRcr 81.8 mL/min/1.7 3m*2 03/26/2025 2:50 PM EDT [facility] Comment:Reported eGFRcr in m L/min/1.73m2 is based the CKD-EPI 2020 equation that does not use a race coefficient. Blood Venous blood specimen / Unknown Venipuncture / Unknown 03/26/2025 12:07 PM EDT 03/26/2025 12:07 PM EDT us Abdelrahman Betancur MD LAB BLOOD ORDERABLES Final R esult [facility] [address] [place] [id number] * XR Pelvis 1 or 2 Views [...] by Krishna Church MD on 2:00 PM us Renetta BILL IMG XR PROCEDURES Final Resul t * ECG Adult (Now - Performed in your clinic) (03/06/2025 11:15 AM EDT) EKG DIAGNOSIS CLASS Abnormal MUSE ECG Ventricular Rate 79 BPM MUSE ECG Atrial Rate 79 BPM MUSE ECG MI Interval 156 ms MUSE ECG QRSD Interval 88 ms MUSE ECG QT Interval 368 ms MUSE ECG QTC Interval 421 ms MUSE ECG P Woodacre 6 degrees MUSE ECG R [place] -39 degrees MUSE ECG T Wave Woodacre 23 degrees MUSE ECG Diagnosis Normal sinus rhythm MUSE ECG Diagnosis Left axis deviation MUSE ECG Diagnosis Septal infarct , age undetermined MUSE ECG Diagnosis Abnormal ECG MUSE ECG Diagnosis MUSE ECG Diagnosis Confirmed by Glynn Weber ([id number]) on 03/06/2025 3:54:17 PM MUSE ECG 03/06/2025 11:1 5 AM EDT 03/06/2025 3:54 PM EDT us Dian BILL ECG ORDERABLES Final R esult MUSE ECG * ECHO, ADULT TRANSTHORACIC COMPLETE (03/06/2025 10:48 [...] BILL CV ECHO PROCEDURES Nathaly l Result * XR Hip Left 2 or 3 [...] PM EDT) Case Report Surgical Pathology Case: [id number] Authorizing Provider: Abdelrahman Betancur MD Collected: 02/11/2025 1237 Ordering Location: [facility] Operating Room Received: 02/11/2025 1432 Pathologist: Marielena Garay MD Specimen: Hip, Left, Femoral Head (gross only) 02/13/2025 3:33 PM EDT [facility] Final Diagnosis FEMORAL HEAD, EXCISION: -DEGENERATIVE JOINT DISEASE 02/13/2025 3:33 PM EDT [facility] at 1533 EDT Clinical Information Arthritis of left hip [M16.12] 02/13/2025 3:33 PM EDT [facility] Gross Description A. FEMORAL [...] only. Terese Tolliver 02/13/2025 3:33 PM EDT [facility] Note: A resident was involved in the service. I attest I examined the relevant preparations for the specimens and confirmed the diagnosis or interpretation. 02/13/2025 3:33 PM EDT [facility] Bone Left hip region structure / Unknown 02/11/2025 12:37 PM EDT 02/11/2025 2:32 PM EDT Comment:Pre-op diagnosis: Arthritis of left hip [M16.12] us Abdelrahman Betancur MD LAB PATHOLOGY ORDERABLES Fin al Result [facility] [address] [place] [address] * [place] AN ELECTIVE ENDOTRACHEAL AIRWAY, [place] ANESTHESIA PLACEHOLDER [...] Gómez MD ANESTHESIA ORDERABLES Final Re sult from Last 3 Months Insurance [facility] MEDICARE Advance Directives * Full Code [...] updated to appropriate status: Yes Care Teams Gambling Floor Supervisor Relationship Specialty Start Date End Date Wan Santoro MD [address] [place] [phone] PCP - General 01/20/21 Dalton Hurley MD [address] [facility] [id number] [place] [phone] Consulting Physician Radiation Therapy 03/27/21 Geovanny Dominguez MD [address] [facility] [address] [place] [phone] Surgeon Neurosurgery 05/21/21 Rudolph Dillard MD [address] [phone] Consulting Physician Medical Oncology 09/22/21 Abdiel Vargas, CIRCULAR SAW FILER [address] [facility] [address] [place] [phone] Nurse Practitioner Internal Medicine 04/09/22 Rodney Maria MD [address] [phone] Referring Physician 11/14/24 Brian Flores MD [address] [place] [phone] Consulting Physician Cardiology 11/14/24
== END 2025-04-15 23:59 | disposition home or self-care (01) ==
LOC: RAD 13:06
PROVIDERS: PCP Internal Medicine; Visit Provider Internal Medicine
DX: M19.012 Primary osteoarthritis, left shoulder (principal); R93.6 Abnormal findings on diagnostic imaging of limbs
CPT/HCPCS: 73030

== ENCOUNTER 2025-05-16 11:00 | Outpatient (RCR) | payer MEDICARE, SELFPAY | END 2025-05-16 23:59 | disposition home or self-care (01) | LOC: PT 11:00 | PROVIDERS: PCP Internal Medicine; Visit Provider Orthopaedic Surgery Adult Reconstructive Orthopaedic Surgery | DX: M16.11 Unilateral primary osteoarthritis, right hip (principal) | CPT/HCPCS: 97110; 97116; 97140; 97162; 97530 ==

== ENCOUNTER 2025-05-27 09:00 | Outpatient (RCR) | payer MEDICARE, SELFPAY | END 2025-05-27 23:59 | disposition home or self-care (01) | LOC: PT 09:00 | PROVIDERS: PCP Internal Medicine; Visit Provider Orthopaedic Surgery Adult Reconstructive Orthopaedic Surgery | DX: M16.11 Unilateral primary osteoarthritis, right hip (principal) | CPT/HCPCS: 97110; 97530 ==